=== PATIENT | female | born 1990 | race Caucasian/White ===

== ENCOUNTER 2022-09-09 23:32 | Emergency (ER) | payer OTHER ==
--- OUTSIDE RECORDS SUMMARY | 2022-09-09 23:36 | XMS REPORT | Continuity of Care Document ---
:1990 Author Organization [facility] t Address [address] [place] [address] Care Team Providers Name Role Phone System, Pcp Not In Primary Care Physician Unavailable DORIS PAUL Attending Clinician Unavailable Doctor Unassigned, [place] Attending Clinician Unavailable JONATAN KEMP Attending Clinician Unavailable FRANCESCO ADAM Attending Clinician Unavailable DORIS STOVALL Attending Clinician Unavailable Doris Stovall MD Attending Clinician Leidy Mckeon Attending Clinician LEIDY BASS Attending Clinician Unavailable DA GREENE Attending Clinician Unavailable THOMAS ATKINS Attending Clinician Unavailable YOHAN RIVERA Attending Clinician Unavailable BEENA MAZARIEGOS Attending Clinician Unavailable CHERELLE WEINSTEIN Attending Clinician Unavailable Dav Crook Attending Clinician Unavailable PAULA VELEZ Admitting Clinician Unavailable ELDER BABCOCK Admitting Clinician Unavailable Payers Payer Name Policy Type Policy Number Effective Date Expiration Date S ource Problems Condition Condition Condition Status Onset Resolution Last Treating Co mments Source Name Details Category Date Date Treatment Clinician Date Kidney Kidney Disease Active 2020-11 Univers stone stone 2-16 ity of 00:00: [address] Morbid Morbid Disease Active 2021-1 Univers obesity obesity 2-16 ity of 00:00: [place] 00 [facility] Branch Obstructiv Obstructiv Disease Active 2020-11 U nivers e sleep e sleep 2-16 ity of apnea apnea 00:00: [place] [facility] Cerebrovas Cerebrovas Disease Active 2019-11 U nivers cular cular 1-05 ity of accident accident 00:00: [place] (CVA) (CVA) 00 Medical Branch Transient Transient Disease Active 2019-11 Uni vers ischemic ischemic 1-05 ity of attack attack 00:00: [place] [facility] Hyperlipid Hyperlipid Disease Active 2019- U nivers emia emia 2-21 ity of 00:00: [place] [facility] Benign Benign Disease Active 2017-11 Univers intracrani intracrani 0-23 it y of al al 00:00: [place] hypertensi hypertensi 00 Me dical on on Branch Hypothyroi Hypothyroi Disease Active 2016-11 U nivers dism dism 2-26 ity of 00:00: [place] [facility] Bipolar 1 Bipolar 1 Disease Active 2016-11 Uni vers disorder, disorder, 1-20 ity of depressed depressed 00:00: [facility] [place] [facility] Posttrauma Posttrauma Disease Active U nivers tic stress tic stress 3-17 it y of disorder disorder 00:00: [place] 00 Medical Branch Allergies, Adverse Reactions, Alerts Allergy Allergy Status Severity Reaction(s) Onset Inactive Treating Comm ents Source Name Type Date Date Clinician Penicill Propensi Active 2021-11 ins - ty to 0-31 CLASS adverse 00:00: reaction 00 to drug Penicill DA Active [facility] ins 03-26 [place] 00:00: [facility] [place] prometha DA Active [facility] zine 03-26 [place] 00:00: [facility] [place] PREDNISO DRUG Active Hives Univers NE INGREDI 4-04 ity of 00:00: [place] [facility] PROMETHA DRUG Active Anaphylaxis Uni vers ZINE INGREDI 4-04 ity of 00:00: [place] [facility] Predniso Drug Active Hives Univers ne Allergy 4-04 ity of 00:00: [place] [facility] Prometha Drug Active Anaphylaxis Uni vers zine Allergy 4-04 ity of 00:00: [place] 00 Medical Branch Social History Social Habit Start Date Stop Date Quantity Comments Source History of Cigarette Smoker [facility] of tobacco use [facility] Tobacco use and 2022-06-20 2022-06-20 Smokeless tobacco Un iversity of exposure 00:00:00 00:00:00 non-user [facility] Exposure to 2022-06-09 2022-06-19 Not sure University SARS-CoV-2 00:00:00 16:02:00 [facility] (event) [place] Sex Assigned At [birth year] Universit y of 00:00:00 00:00:00 [facility] Smoking Status Start Date Stop Date Source Ex-smoker 2022-06-20 00:00:00 2022-06-20 00:00:00 [facility] Medications Ordered Filled Start Stop Current Ordering Indication Dosage Frequency Signature Comments Components Source Medication Medication Date Date Medication? Clinician (SIG) Name Name TAKE 2021-11 No CAPSULE 0-14 FOUR TIMES 00:00: DAILY UNTIL 00 GONE TAKE 2021-11 No TABLET BY 0-14 MOUTH EVERY 00:00: DAY 00 TAKE 2021-11 No CAPSULE 0-14 FOUR TIMES 00:00: DAILY UNTIL 00 GONE TAKE 2021-11 No TABLET BY 0-14 MOUTH EVERY 00:00: DAY 00 levothyroxi 2021- No .05ug Take 0.05 Univers ne 50 mcg 8-17 08-17 mcg by ity of tablet 12:00: 00:00 mouth [place] 31 :00 every Medical morning. [place] atorvastati 2021- No 20mg Take 20 mg Univers n 20 mg 8-17 08-17 by mouth. ity of tablet 12:00: 00:00 [place] 31 :00 [facility] QUEtiapine Yes [id number] TAKE ONE Univers 50 mg 8-17 (1) ity of tablet 00:00: TABLET(S) 00 BY MOUTH Medical IN THE Branch MORNING AND 2 TABLETS AT BEDTIME. divalproex Yes [id number] 250mg Take 1 Univers 250 mg EC 8-17 tablet by ity o f tablet 00:00: mouth in [place] [address] the Medical morning Branch and 1 tablet in the evening. levothyroxi 0 Yes [id number] 50ug Take 1 Univers ne 50 mcg 8-17 tablet by ity o f tablet 00:00: mouth [place] 00 every Medical morning. Branch hydrOXYzine Yes [id number] 50mg Take 1 Univers 50 mg 8-17 tablet by ity of tablet 00:00: mouth 3 (three) Medical times [place] daily as needed for Anxiety. atorvastati 0 Yes [id number] 20mg Take 1 Univers n 20 mg 8-17 tablet by ity of tablet 00:00: mouth at [place] 00 bedtime. Medical Branch pantoprazol 0 Yes [id number] 40mg Take 1 Univers e 40 mg EC 8-17 tablet by ity of tablet 00:00: mouth in [place] 00 the Medical morning. Branch FLUoxetine 0 Yes [id number] TAKE 1 U nivers 40 mg 8-17 CAPSULE BY ity of capsule 00:00: MOUTH [place] 00 DAILY IN Medical THE Branch MORNING WITH FOOD gabapentin Yes [id number] 300mg Take 1 Univers 300 mg 8-17 [id number] capsule by ity o f capsule 00:00: mouth at [place] [address] bedtime. Medical Branch QUEtiapine 0 Yes [id number] TAKE ONE Univers 50 mg 8-17 (1) ity of tablet 00:00: TABLET(S) 00 BY MOUTH Medical IN THE Branch MORNING AND 2 TABLETS AT BEDTIME. divalproex Yes [id number] 250mg Take 1 Univers 250 mg EC 8-17 tablet by ity o f tablet 00:00: mouth in [place] 00 the Medical morning Branch and 1 tablet in the evening. levothyroxi 0 Yes [id number] 50ug Take 1 Univers ne 50 mcg 8-17 tablet by ity o f tablet 00:00: mouth [place] 00 every Medical morning. Branch hydrOXYzine 2021-0 Yes [id number] 50mg Take 1 Univers 50 mg 8-17 tablet by ity of tablet 00:00: mouth 3 (three) [facility] daily as needed for Anxiety. atorvastati 0 Yes [id number] 20mg Take 1 Univers n 20 mg 8-17 tablet by ity of tablet 00:00: mouth at [place] [address] bedtime. Medical Branch pantoprazol 2021-0 Yes [id number] 40mg Take 1 Univers e 40 mg EC 8-17 tablet by ity of tablet 00:00: mouth in [place] 00 the Medical morning. Branch FLUoxetine Yes [id number] TAKE 1 U nivers 40 mg 8-17 CAPSULE BY ity of capsule 00:00: MOUTH [place] 00 DAILY IN Medical THE Branch MORNING WITH FOOD gabapentin Yes [id number] 300mg Take 1 Univers 300 mg 8 [id number] capsule by ity o f capsule 00:00: mouth at [place] 00 bedtime. Medical Branch QUEtiapine 2021- No TAKE ONE Un eddie 50 mg 05-21 (1) ity of tablet 00:00: 00:00 TABLET(S) [place] 00 :00 BY MOUTH Medical IN THE Branch MORNING AND 2 TABLETS AT BEDTIME. FLUoxetine 2021- No TAKE 1 Univ ers 40 mg 04-17 CAPSULE BY ity of capsule 00:00: 00:00 MOUTH [place] 00 :00 DAILY IN Medical THE Branch MORNING WITH FOOD hydrOXYzine 2021- No 50mg Take 50 mg Univers 50 mg 04-17 by mouth 3 ity of tablet 00:00: 00:00 (three) [place] 00 :00 times Medical daily as Branch needed. divalproex 2021- No 250mg Take 250 U nivers 250 mg EC 04-17- mg by ity of tablet 00:00: 00:00 mouth in [place] 00 :00 the Medical morning Branch and 250 mg in the evening. pantoprazol 2020-11- No 40mg Take 40 mg Univers e 40 mg EC 12-14 by mouth. ity of tablet 00:00: 00:00 [place] 00 :00 [facility] Branch Vital Signs Vital Name Observation Time Observation Value Comments Source Systolic blood 2022-06-20 16:27:00 132 mm[Hg] Univer sity of pressure [facility] Diastolic blood 2022-06-20 16:27:00 68 mm[Hg] [facility] 2022-06-20 16:27:00 76 /[facility] Body temperature 2022-06-20 16:27:00 36.28 [facility] Respiratory rate 2022-06-20 16:27:00 18 /min [facility] Body weight 2022-06-20 16:27:00 120.203 kg [facility] BMI 2022-06-20 16:27:00 41.50 kg/m2 [facility] BP Systolic 2022-09-06 15:38:00 126 mm[Hg] BP Diastolic 2022-09-06 15:38:00 83 mm[Hg] Weight Measured 2022-09-06 15:38:00 285.00 pounds Height Measured 2022-09-06 15:38:00 67.00 inches Body Temperature 2022-09-06 15:38:00 98.20 degrees Heart Rate 2022-09-06 15:38:00 59.00 /min Respiratory Rate 2022-09-06 15:38:00 18.00 /min Body Temperature 2022-09-03 14:34:00 97.90 degrees Heart Rate 2022-09-03 14:34:00 75.00 /min Respiratory Rate 2022-09-03 14:34:00 18.00 /min BP Systolic 2022-09-03 14:34:00 135 mm[Hg] BP Diastolic 2022-09-03 14:34:00 85 mm[Hg] Weight Measured 2022-09-03 14:34:00 285.00 pounds Height Measured 2022-09-03 14:34:00 67.00 inches Procedures Procedure Date / Time Performed Performing Clinician [facility] e REFERRAL- 2022-09-03 05:01:00 Doctor Unassigned, No [facility] REQUEST/RESPONSE Name [facility] Plan of Care Planned Activity Planned Date Details Comments Source Goal Plan of Care Note [code = 09447-5] Goal Plan of Care Note [code = 44811-2] Goal Plan of Care Note [code = 46236-2] Goal Plan of Care Note [code = 18516-8] Goal Plan of Care Note [code = 97610-4] Goal Plan of Care Note [code = 54717-1] Goal Plan of Care Note [code = 57113-3] Goal Plan of Care Note [code = 79945-3] Goal Plan of Care Note [code = 68868-6] Goal Plan of Care Note [code = 25366-2] Goal Plan of Care Note [code = 10770-1] Goal Plan of Care Note [code = 31375-0] Goal Plan of Care Note [code = 72292-7] Goal Plan of Care Note [code = 20535-0] Goal Plan of Care Note [code = 50580-1] Goal Plan of Care Note [code = 12205-8] Goal Plan of Care Note [code = 96605-7] Goal Plan of Care Note [code = 70359-3] Goal Plan of Care Note [code = 84313-4] Encounters Start End Encounter Admission Attending Care Care Encounter Source Date/Time Date/Time Type Type Clinicians Facility Department ID 2022-04-24 Outpatient ASHLEE PAULRosa M VILLAFANA 7505 CY 16:04:42 DORIS 2022-09-06 2022-09-06 Outpatient SFA SFA [id number] [place] 15:21:36 15:21:36 [id number] F Gustabo 2022-09-06 2022-09-06 Outpatient [id number] [id number] 00:00:00 00:00:00 Visit [id number] 2022-09-03 2022-09-03 Outpatient SFA SFA [id number]- [place] 14:25:05 14:25:05 [id number] F Gustabo 2022-09-03 2022-09-03 Outpatient [id number]- [id number] fccdbf-f 00:00:00 00:00:00 Visit [id number] 2022-09-03 2022-09-03 Orders Doctor REJI 1.2.840.114 [id number] Univers 00:00:00 00:00:00 Only Unassigned, ARISTEO 350.1.13.10 ity of [place] [facility] 4.2.7.2.686 Miguel Angel as [id number] [facility] blayne 009 Branch 2022-07-11 2022-07-12 Emergency E EVE ADAMBL [facility]BL 7507 MHBL 20:54:00 00:37:00 FRANCESCO 2022-06-20 2022-06-20 Outpatient DORIS BLANCA [facility] [id number] Univers 11:15:00 13:07:14 ity of [facility] 2022-06-20 2022-06-20 Office StovallDoris barreto 1.2.840.114 [id number] Univers 11:15:00 13:07:14 Visit Y PEDIATRIC 350.1.13.10 it[place] [id number] [facility] [address] [place] [facility] 2022-06-19 2022-06-19 Urgent [facility] 1.2.840.114 [id number] Univers 16:00:00 16:20:00 Care [facility] 350.1.13.10 it y of [place] 4.2.7.2.686 Miguel Angel as HARPREET?BLEA [phone] [address] MEDICAL OFFICE BUILDING 2022-06-19 2022-06-19 Outpatient R SHELIA [facility] [id number] Univers 16:00:00 16:00:00 RANIA ity of [facility] 2022-06-19 2022-06-19 Orders Doctor REJI 1.2.840.114 [id number] Univers 00:00:00 00:00:00 Only Unassigned, ARISTEO 350.1.13.10 ity of [place] [facility] 4.2.7.2.686 Miguel Angel as [phone] [address] 2022-04-24 2022-04-24 Outpatient E SHAUNA MHC[facility] MED [id number] MHCY 06:45:00 18:13:00 DA ZHANG 2022-04-14 2022-04-14 Emergency E MILLY, MHCY MHCY 7504 MHCY 14:10:00 18:49:00 THOMAS 2022-04-11 2022-04-13 Outpatient E MIGUEL [facility] MED 750 3 MHCY 23:00:00 13:40:00 YOHAN 2022-04-11 2022-04-11 Emergency E WALK, MHCY MHCY 7502 MHCY 04:18:00 06:47:00 BEENA 2022-04-10 2022-04-10 Emergency E JS, MHCY MHCY 7501 MHCY 10:05:00 14:04:00 CHERELLE 2022-03-28 2022-03-28 Emergency E JS, MHCY MHCY 7500 MHCY 14:03:00 20:48:00 PSYCHIATRIC 2022-03-26 2022-03-26 Emergency EM Ambreen, HCATB HCATB [id number] [facility] 21:24:00 22:58:[id number] [facility] [place] 2022-03-26 2022-03-26 Emergency EM Ambreen, HCATB EO3 [id number] [facility] 21:24:00 22:58:[address] [facility] [place] Results Test Description Test Time Test Comments Results Result Comments Source DRUGS OF ABUSE SCREEN URINE 2022-03-26 22:06:00 Test Item Value Reference Range Interpretation Comme nts UR COCAINE (test code = COCAU) Neg NEGATIVE UR METHAMPHETAMINE (test code = METHAMPHU) Neg NEGATIVE UR CANABINOIDS (test code = CANU) Neg NEGATIVE UR AMPHETAMINE (test code = AMPHU) Neg NEGATIVE UR BARBITURATE (test code = BARBQLU) Neg NEGATIVE UR BENZODIAZEPINE (test code = BENZU) Neg NEGATIVE METHADONE (test code = METHDU) Neg NEGATIVE UR OPIATES QUAL (test code = OPIAQLU) Pos NEGATIVE UR TRICYCLICS (test code = TRICYCU) Neg NEGATIVE HCG [id number] 22:02:00 Test Item Value Reference Range Interpretation Comments HCG POC (test NEGATIVE IU/L code = HCGPOC) Re sults of 5.0-25.0 IU/L a re indeterminate a nd do not ruleout pregnan cy. Because HCG celeste ues double approxim ately every48 hours i n a normal pregnanc y, patients with l ow levels ofHCG should be resampled and r etested after 48 hours toconfirm . URINALYSIS DIPSTICK [id number] 21:55:00 Test Item Value Reference Range Interpretation Comments UA COLOR (test code Dark yellow YELLOW = COLU) UA APPEARANCE (test Slightly Cloudy CLEAR code = APPU) UA GLUCOSE DIPSTICK NEGATIVE MG/AL NEGATIVE (test code = DGLUU) UA BILIRUBIN NEGATIVE NEGATIVE DIPSTICK (test code = BILU) UA KETONE DIPSTICK NEGATIVE MG/DL NEGATIVE (test code = KETU) UA SPECIFIC GRAVITY 1.020 1.000-1.030 (test code = SGU) UA BLOOD DIPSTICK NEGATIVE NEGATIVE (test code = RYLEY) UA PH DIPSTICK (test 7.0 4.5-8.5 code = NORIS) UA PROTEIN DIPSTICK NEGATIVE NEGATIVE (test code = PROU) UA UROBILINOGEN 0.2 EU/dL See_Comment [Automated DIPSTICK (test code message] The = URO) system which generated this result transmit ajay reference range : <=1.0. The reference range was not used to interpret this result as normal/abnormal . UA NITRITE DIPSTICK NEGATIVE NEGATIVE (test code = CLAUDIA) UA LEUKOCYTE NEGATIVE NEGATIVE ESTERASE DIPSTICK (test code = LEUU) - XR CHEST 1 [id number] 21:55:00 [facility] : 1990 Sex: FPatient Name: CAROLINE DURAND Unit No: [id number] EXAMS: CPT: [id number] XR CHEST 1 V 79113 PA CHEST, 03/26/2022. Comparison: None. CLINICAL: Chest pain. COMMENT: The heart, mediastinum, hilar regions and pulmonary vasculature appear within normal limits. The lungs are free of active disease. The bony thorax is intact. IMPRESSION: No evidence to suggest active cardiopulmonary disease. at 2155 Reported and signed by: Dav Orellana MD CC: Dav Crook MD Technologist: MARIBEL LOCKHART Trscr Dt/Tm: 03/26/2022 (2154) by:[email or web address] Orig Print D/T: S: 03/26/2022 (2157) BATCH NO: N/A Name: CAROLINE DURAND Emergency Dept Phys: Dav Mehta [id number] [place] : 1990 Age: 31 Sex: F [place] [id number] Loc: DOUG Exam Date: 03/26/2022 Status: PRE ER PH: [phone] FAX: PAGE 1 Signed ReportCBC W/AUTO [id number] 21:50:00 Test Item Value Reference Range Interpretation Comments WHITE BLOOD CELL 10.7 x10 3/u 4.8-10.8 N (test code = WBC) RED BLOOD CELL (test 3.57 x10 6/uL 4.20-5.40 L code = RBC) HEMOGLOBIN (test code 10.5 g/dL 12.0-16.0 L = HGB) HEMATOCRIT (test code 31.9 % 34.0-47.0 L = HCT) MEAN CELL VOLUME 89 fL 80-99 N (test code = MCV) MEAN CELL HGB (test 29.4 pg 27.0-31.0 N code = MCH) MEAN CELL HGB 32.9 g/dL 33.0-37.0 L CONCENTRATION (test code = MCHC) RED CELL DISTRIBUTION 14.0 % 11.5-14.5 N WIDTH (test code = RDW) PLATELET COUNT (test 275 x10 3/uL 130-400 N code = PLT) MEAN PLATELET VOLUME 9.5 fL 9.4-12.4 N (test code = MPV) NEUTROPHIL % (test 58.7 % 37.0-80.0 N code = NT%) LYMPHOCYTE % (test 33.0 % 10.0-50.0 N code = LY%) MIXED % (test code = 8.3 % 0.0-11.0 N The Mix ed Cell MX%) percent and Mix ed Cell absolute numberinclude monocytes, eosinophils and basophils. NEUTROPHIL # (test 6.3 x10 3/uL 2.0-6.9 N code = NT#) LYMPHOCYTE # (test 3.5 x10 3/uL 0.9-4.1 N code = LY#) MIXED # (test code = 0.9 10e3/mm3 0.2-1.1 N MX#) TROPONIN I [id number] 21:49:00 Test Item Value Reference Range Interpretation Comments TROPONIN I RAPID 0.01 ng/mL 0.00-0.08 N ISTAT TROP ONIN I (test code = CRITERIA0.00-0. 08 ng/mL - TROPIRAP) Negative>0.08 n g/mL - Positive The us e of serial sampling and te sting protocol is are commended practice.An johny vated troponin level alone is often not suffi cient fordiagnosis of myocardial infarction. Tro ponin results obtaine d by different assay s may vary.Evaluation of the extent of myoca rdial damage based on increase of troponin would be valid only if similar methodology is used. CHEMISTRY 8 [id number] 21:48:00 Test Item Value Reference Range Interpretation Comments SODIUM POC (test code = NAP) 144 mmol/L 138-146 N POTASSIUM POC (test code = KP) 3.7 mmol/L 3.5-4.9 N CHLORIDE POC (test code = CLP) 114 mmol/L 98-109 H CO2 POC (test code = CO2P) 18 mmol/L 24-29 L IONIZED CALCIUM POC (test code = 1.26 mmol/L 1.10-1.32 N CAIP) GLUCOSE POC (test code = GLUP) 135 MG/DL 74-106 H BUN POC (test code = BUNP) 12 mg/dL 8-26 N CREATININE POC (test code = 0.8 mg/dL 0.6-1.3 N CREATP) GLOMERULAR FILTRATION RATE POC 83 >60 (test code = GFRP)
[2022-09-10 02:13] LABS: Urine Blood Negative (Negative); Urine Glucose Negative (Negative); Urine Protein Negative (Negative); Urine Specific Gravity >=1.030 (1.005-1.030)
[2022-09-10] MEDS ORDERED: METOPROLOL TAR 25 MG TAB ONE (02:28)
[2022-09-10] MEDS ORDERED: NITROGLYCERIN 0.4 MG/TAB SL ONE (02:29)
[2022-09-10] MEDS ORDERED: NA CHLORIDE 0.9% 500 ML ONE (02:29)
[2022-09-10] MEDS ORDERED: ONDANSETRON 4 MG/2 ML VIAL ONE (02:29)
[2022-09-10 02:34] LABS: Hematocrit 37.9 % (36.0-45.0); Lymphocytes % 29.2 % (15.3-44.8); MCV 84.9 fL (80-100); RBC Red Blood Cell Count 4.47 M/uL (3.86-4.86)
[2022-09-10 02:45] LABS: Potassium 3.9 mmol/L (3.5-5.1); Troponin High Sensitivity 4.6 pg/mL (<58.9)
[2022-09-10] MEDS ORDERED: MORPHINE 4 MG/ML SYR ONE ×2 (05:28→07:27)
[2022-09-10] MEDS ORDERED: METHYLPREDNISOLONE 125 MG INJ ONE (07:40)
[2022-09-10] MEDS ORDERED: KETOROLAC 30 MG/ML INJ ONE (07:41)
--- NOTE | 2022-09-10 07:46 | RAD REPORT ---
EXAM DESCRIPTION: CT - Thorax W/ Con - 09/10/2022 7:21 am CLINICAL HISTORY: Chest pain COMPARISON: None TECHNIQUE: Computed axial tomography of the chest was obtained. 100 cc Isovue 300 was administered i ntravenously. All CT scans are performed using dose optimization technique as appropriate and may include automated exposure control or mA/KV adjustment according to patient size. FINDINGS: Small bilateral pleural effusions. No pericardial effusion. Lungs are clear. Mild soft tissue anterior mediastinum. No hilar lymphadenopathy. IMPRESSION: Small bilateral pleural effusions Mild soft tissue anterior mediastinum probably normal thymus. Followup CT chest in 3 months recommend ed for re-evaluation
--- NOTE | 2022-09-10 08:06 | EDPHYS ---
Physician Documentation [facility] Name: Erica Tucker Age: 32 yrs Sex: Female : 1990 Arrival Date: 09/09/2022 Time: 23:33 Bed 18 Private MD: ED Physician Mike Acharya HPI: 09/10 06:23 This 32 yrs old Female presents to ER via Ambulatory with complaints of Chest Pain. kdr 06:23 Good patient complains of substernal left-sided chest pain that radiates to her jaw and kdr started while she was walking upstairs about 330 today she also reports some nausea and shortness of breath. She has not had this before.. Onset: The symptoms/episode began/occurred suddenly, at 15:30. Severity of symptoms: At their worst the symptoms were moderate severe just prior to arrival, in the emergency department the symptoms are unchanged. The patient has not experienced similar symptoms in the past. The patient has not recently seen a physician. 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 - Social history:: Smoking status: Patient denies any tobacco usage or history of. ROS: 09/10 06:23 Constitutional: Negative for fever, chills, and weight loss, Eyes: Negative for injury, kdr pain, redness, and discharge, ENT: Negative for injury, pain, and discharge, Neck: Negative for injury, pain, and swelling, Respiratory: Negative for shortness of breath, cough, wheezing, and pleuritic chest pain, Abdomen/GI: Negative for abdominal pain, nausea, vomiting, diarrhea, and constipation, Back: Negative for injury and pain, : Negative for injury, bleeding, discharge, and swelling, MS/Extremity: Negative for injury and deformity, Skin: Negative for injury, rash, and discoloration, Neuro: Negative for headache, weakness, numbness, tingling, and seizure activity. Psych: Negative for depression, anxiety, suicide ideation, homicidal ideation, and hallucinations, Allergy/Immunology: Negative for hives, rash, and allergies, Endocrine: Negative for neck swelling, polydipsia, polyuria, polyphagia, and marked weight changes, Hematologic/Lymphatic: Negative for swollen nodes, abnormal bleeding, and unusual bruising. Cardiovascular: Positive for chest pain, Negative for edema, orthopnea, palpitations, paroxysmal nocturnal dyspnea, acute changes. Exam: 06:23 Constitutional: This is a well developed, well nourished patient who is awake, alert, kdr and in no acute distress. Head/Face: Normocephalic, atraumatic. Eyes: Pupils equal round and reactive to light, extra-ocular motions intact. Lids and lashes normal. Conjunctiva and sclera are non-icteric and not injected. Cornea within normal limits. Periorbital areas with no swelling, redness, or edema. Neck: Trachea midline, no thyromegaly or masses palpated, and no cervical lymphadenopathy. Supple, full range of motion without nuchal rigidity, or vertebral point tenderness. No Meningismus. Chest/axilla: Normal chest wall appearance and motion. Nontender with no deformity. No lesions are appreciated. Cardiovascular: Regular rate and rhythm with a normal S1 and S2. No gallops, murmurs, or rubs. Normal PMI, no JVD. No pulse deficits. Respiratory: Lungs have equal breath sounds bilaterally, clear to auscultation and percussion. No rales, rhonchi or wheezes noted. No increased work of breathing, no retractions or nasal flaring. Abdomen/GI: Soft, non-tender, with normal bowel sounds. No distension or tympany. No guarding or rebound. No evidence of tenderness throughout. Back: No spinal tenderness. No costovertebral tenderness. Full range of motion. Skin: Warm, dry with normal turgor. Normal color with no rashes, no lesions, and no evidence of cellulitis. MS/ Extremity: Pulses equal, no cyanosis. Neurovascular intact. Full, normal range of motion. Neuro: Awake and alert, GCS 15, oriented to person, place, time, and situation. Cranial nerves II-XII grossly intact. Motor strength 5/5 in all extremities. Sensory grossly intact. Cerebellar exam normal. Normal gait. Psych: Awake, alert, with orientation to person, place and time. Behavior, mood, and affect are within normal limits. 06:23 Abdomen/GI: Inspection: obese Vital Signs: 09/09 23:44 BP 169 / 101; Pulse 80; Resp 20; Temp 97.8; Pulse Ox 98% on R/A; Weight 127.01 kg; hb Height 5 ft. 7 in. (170.18 cm); Pain 8/10; 09/10 02:26 BP 129 / 87; Pulse 77; Resp 14; Pulse Ox 99% on R/A; kd3 02:48 BP 135 / 84; Pulse 77; Resp 16; Pulse Ox 95% on R/A; kd3 03:35 BP 133 / 76; Pulse 75; Resp 14; Pulse Ox 98% on R/A; kd3 06:30 BP 139 / 81; Pulse 69; Resp 16; Pulse Ox 96% ; kd3 07:37 BP 136 / 74; Pulse 76; Resp 14 S; Pulse Ox 96% on R/A; Pain 6/10; kc6 09/09 23:44 Body Mass Index 43.85 (127.01 kg, 170.18 cm) hb MDM: 08:05 Patient medically screened. kdr 09/10 00:16 Order name: Basic Metabolic Panel; Complete Time: 04:40 kdr 09/10 00:16 Order name: CBC with Diff; Complete Time: 04:40 kdr 09/10 00:16 Order name: Troponin HS; Complete Time: 04:40 kdr 09/10 00:16 Order name: XRAY Chest (1 view) kdr 09/10 02:14 Order name: Urine Dipstick-Ancillary; Complete Time: 04:40 EDMS 09/10 04:42 Order name: Troponin High Sensitivity: Repeat 3 hours after the initial draw ; Complete kdr Time: 07:25 09/10 06:23 Order name: CT Chest W/ Con; Complete Time: 07:58 kdr 09/09 23:53 Order name: EKG; Complete Time: 23:53 hb 09/09 23:53 Order name: EKG - Nurse/Tech; Complete Time: 23:53 hb 09/10 00:16 Order name: Cardiac monitoring; Complete Time: 02:08 kdr 09/10 00:16 Order name: IV Saline Lock; Complete Time: 02:09 kdr 09/10 00:16 Order name: Labs collected and sent; Complete Time: 02:09 kdr 09/10 00:16 Order name: O2 Per Protocol; Complete Time: 02:09 kdr 09/10 00:16 Order name: O2 Sat Monitoring; Complete Time: 02: kdr 09/10 04:42 Order name: EKG - Nurse/Tech: Repeat when the troponin is redrawn at 3 hours; Complete kdr Time: 06:29 Administered Medications: 02:33 Drug: Nitroglycerin 0.4 mg Route: Sublingual; kd3 02:33 Drug: Lopressor (metoprolol TARTRATE)) 25 mg Route: PO; kd3 03:36 Follow up: Response: No adverse reaction kd3 02:33 Drug: Zofran (Ondansetron) 4 mg Route: IVP; Site: left antecubital; kd3 03:36 Follow up: Response: No adverse reaction; Nausea is decreased kd3 02:33 Drug: NS 0.9% 500 ml Route: IV; Rate: bolus; Site: left antecubital; kd3 02:40 Drug: Nitroglycerin 0.4 mg Route: Sublingual; kd3 03:08 Drug: Nitroglycerin 0.4 mg Route: Sublingual; kd3 03:36 Follow up: Response: No adverse reaction; Pain is decreased kd3 05:32 Drug: morphine 4 mg Route: IVP; Infused Over: 4 mins; Site: left antecubital; aa9 07:45 Drug: morphine 4 mg Route: IVP; Infused Over: 4 mins; Site: left antecubital; kc6 08:45 Follow up: Response: No adverse reaction; Pain is decreased; RASS: Alert and Calm (0) kc6 07:51 Drug: Ketorolac 15 mg Route: IVP; Site: left antecubital; kc6 08:41 Follow up: Response: No adverse reaction; Pain is decreased; RASS: Alert and Calm (0) kc6 07:51 Drug: SOLU-Medrol (methylPrednisoLONE) 125 mg Route: IVP; Site: left antecubital; kc6 08:51 Follow up: Response: No adverse reaction 6 Disposition Summary: 09/10/22 08:05 Discharge Ordered Location: Home kdr Problem: new kdr Symptoms: have improved kdr Condition: Stable kdr Diagnosis - Chest wall pain, pleural effusions, kdr Followup: kdr - With: Private Physician - When: 2 - 3 days - Reason: If symptoms return, Further diagnostic work-up, Recheck today's complaints, Continuance of care, Re-evaluation by your physician Discharge Instructions: - Discharge Summary Sheet kdr - Pleural Effusion kdr - Chest Wall Pain, [id number] kdr Forms: - Medication Reconciliation Form kdr - Thank You Letter kdr - Work release form kc6 Prescriptions: - Medrol (Yosvany) 4 mg Oral Tablets, Dose Pack - take 1 tablet by ORAL route as directed - follow package instructions; 1 kdr packet; Refills: 0, Product Selection Permitted - Tramadol 50 mg Oral Tablet - take 1 tablet by ORAL route every 8 hours as needed; 12 tablet; Refills: 0, kdr Product Selection Permitted Signatures: Dispatcher [employer] Mike Caceres MD MD kdr Kalie Hill RN RN Bruna Finley RN RN kd3 Wendy Chambers RN RN [id number] Ashley Gaspar RN RN kc6 Corrections: (The following items were deleted from the chart) 07:35 11/06 23:46 Allergies: No Known Allergies; kc6
--- NOTE | 2022-09-10 08:06 | ER ---
Nurse's Notes [facility] Name: Erica Tucker Age: 32 yrs Sex: Female : 1990 Arrival Date: 09/09/2022 Time: 23:33 Bed 18 Private MD: Diagnosis: Chest wall pain, pleural effusions, Presentation: 09/09 23:44 Chief complaint: Substernal chest pain that radiates to left jaw that started while hb walking up the stairs at 1530 today. Also reports nausea and SOB. Coronavirus screen: At this time, the client does not indicate any symptoms associated with coronavirus-19. Ebola Screen: No symptoms or risks identified at this time. Initial Sepsis Screen: Does the patient meet any 2 criteria? No. Patient's initial sepsis screen is negative. Does the patient have a suspected source of infection? No. Patient's initial sepsis screen is negative. Risk Assessment: Do you want to hurt yourself or someone else? Patient reports no desire to harm self or others. Onset of symptoms was September 09, 2022. 23:44 Method Of Arrival: Ambulatory 23:44 Acuity: NANCY 3 hb Triage Assessment: 09/10 02:25 General: Appears uncomfortable, Behavior is calm, cooperative. Pain: Complains of pain kd3 in chest. Neuro: Level of Consciousness is awake, alert, obeys commands, Oriented to person, place, time, situation. Cardiovascular: Patient's skin is warm and dry. Respiratory: Airway is patent Trachea midline Respiratory effort is even, unlabored, Respiratory pattern is regular, symmetrical. 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 - Social history:: Smoking status: Patient denies any tobacco usage or history of. Screenin/07 02:24 Abuse screen: Denies threats or abuse. Denies injuries from another. Nutritional kd3 screening: No deficits noted. Tuberculosis screening: No symptoms or risk factors identified. Fall Risk None identified. Assessment: 02:47 General: Appears in no apparent distress. Behavior is calm, cooperative. Pain: Pain kd3 radiates to right arm Pain began gradually. 02:47 Neuro: Level of Consciousness is awake, alert, obeys commands, Oriented to person, kd3 place, time, situation. Cardiovascular: Patient's skin is warm and dry. Respiratory: Airway is patent Trachea midline Respiratory effort is even, unlabored, Respiratory pattern is regular, symmetrical. 03:35 Reassessment: Patient and/or family updated on plan of care and expected duration. Pain kd3 level reassessed. Patient is alert, oriented x 3, equal unlabored respirations, skin warm/dry/pink. Patient states feeling better. Patient states symptoms have improved. 06:30 Reassessment: No changes from previously documented assessment. Patient and/or family kd3 updated on plan of care and expected duration. Pain level reassessed. Patient is alert, oriented x 3, equal unlabored respirations, skin warm/dry/pink. Neuro: Level of Consciousness is awake, alert, obeys commands, Oriented to person, place, time, situation. Cardiovascular: Patient's skin is warm and dry. Respiratory: Airway is patent Trachea midline Respiratory effort is even, unlabored, Respiratory pattern is regular, symmetrical. 07:36 Reassessment: Patient appears in no apparent distress at this time. No changes from kc6 previously documented assessment. Patient and/or family updated on plan of care and expected duration. Pain level reassessed. Patient is alert, oriented x 3, equal unlabored respirations, skin warm/dry/pink. client stated her pain is a 6/10 to the back of her head and down her neck. reports some chest pressure. Vital Signs: 09/09 23:44 BP 169 / 101; Pulse 80; Resp 20; Temp 97.8; Pulse Ox 98% on R/A; Weight 127.01 kg; hb Height 5 ft. 7 in. (170.18 cm); Pain /; 09/10 02:26 BP 129 / 87; Pulse 77; Resp 14; Pulse Ox 99% on R/A; kd3 02:48 BP 135 / 84; Pulse 77; Resp 16; Pulse Ox 95% on R/A; kd3 03:35 BP 133 / 76; Pulse 75; Resp 14; Pulse Ox 98% on R/A; kd3 06:30 BP 139 / 81; Pulse 69; Resp 16; Pulse Ox 96% ; kd3 07:37 BP 136 / 74; Pulse 76; Resp 14 S; Pulse Ox 96% on R/A; Pain 6/10; kc6 09/09 23:44 Body Mass Index 43.85 (127.01 kg, 170.18 cm) hb ED Course: 09/09 23:33 Patient arrived in ED. ja2 23:46 Triage completed. hb 23:46 Arm band placed on. hb 09/10 00:16 Mike Acharya MD is Attending Physician. kdr 00:55 XRAY Chest (1 view) In Process Unspecified. EDMS 01:43 Bruna Finley, RN is Primary Nurse. kd3 02:09 Basic Metabolic Panel Sent. kd3 02:09 CBC with Diff Sent. kd3 02:09 Troponin HS Sent. kd3 02:24 Patient has correct armband on for positive identification. Client placed on continuous kd3 cardiac and pulse oximetry monitoring. NIBP monitoring applied. 02:24 No provider procedures requiring assistance completed. Inserted saline lock: 20 gauge kd3 in left antecubital area, using aseptic technique. Blood collected. Patient maintains SpO2 saturation greater than 95% on room air. 04:05 Warm blanket given. Pillow given. Assisted to bathroom. kd3 06:29 Troponin High Sensitivity: Repeat 3 hours after the initial draw Sent. kd3 07:23 CT Chest W/ Con In Process Unspecified. EDMS 09:16 Primary Nurse role handed off by Bruna Finley, RN jd3 09:16 Sriram Greene RN is Primary Nurse. jd3 09:33 IV discontinued, intact, bleeding controlled, No redness/swelling at site. Pressure kc6 dressing applied. Administered Medications: 02:33 Drug: Nitroglycerin 0.4 mg Route: Sublingual; kd3 02:33 Drug: Lopressor (metoprolol TARTRATE)) 25 mg Route: PO; kd3 03:36 Follow up: Response: No adverse reaction kd3 02:33 Drug: Zofran (Ondansetron) 4 mg Route: IVP; Site: left antecubital; kd3 03:36 Follow up: Response: No adverse reaction; Nausea is decreased kd3 02:33 Drug: NS 0.9% 500 ml Route: IV; Rate: bolus; Site: left antecubital; kd3 02:40 Drug: Nitroglycerin 0.4 mg Route: Sublingual; kd3 03:08 Drug: Nitroglycerin 0.4 mg Route: Sublingual; kd3 03:36 Follow up: Response: No adverse reaction; Pain is decreased kd3 05:32 Drug: morphine 4 mg Route: IVP; Infused Over: 4 mins; Site: left antecubital; aa9 07:45 Drug: morphine 4 mg Route: IVP; Infused Over: 4 mins; Site: left antecubital; kc6 08:45 Follow up: Response: No adverse reaction; Pain is decreased; RASS: Alert and Calm (0) kc6 07:51 Drug: Ketorolac 15 mg Route: IVP; Site: left antecubital; kc6 08:41 Follow up: Response: No adverse reaction; Pain is decreased; RASS: Alert and Calm (0) kc6 07:51 Drug: SOLU-Medrol (methylPrednisoLONE) 125 mg Route: IVP; Site: left antecubital; kc6 08:51 Follow up: Response: No adverse reaction kc6 Medication: 02:47 VIS not applicable for this client. kd3 Outcome: 08:05 Discharge ordered by . kdr 09:16 Patient left the ED. jd3 09:33 Discharged to home ambulatory. kc6 09:33 Condition: stable 09:33 Discharge instructions given to patient, Instructed on discharge instructions, follow up and referral plans. medication usage, Demonstrated understanding of instructions, follow-up care, medications, Prescriptions given X 2. Signatures: Dispatcher [employer] EDMS Mike Acharya MD MD kdr Baxter, Heather, RN RN Sriram Greene RN RN Inga Henson Kyli, RN RN kd3 Wendy Chambers RN RN aa9 Campbell, Kaitlyn, RN RN kc6 Corrections: (The following items were deleted from the chart) 07:35 11 23:46 Allergies: No Known Allergies; kc6
--- NOTE | 2022-09-10 08:29 | EKG ---
Test Date: 2022-09-09 Test Time: 23:51:30 Senior Compliance Officer: HB MEASUREMENT RESULTS: Intervals: Rate: 90 MN: 158 QRSD: 80 QT: 336 QTc: 411 Walker: P: 69 MN: 158 QRS: 53 T: 21 INTERPRETIVE STATEMENTS: Normal sinus rhythm Nonspecific T wave abnormality Abnormal ECG No previous ECG available for comparison Electronically Signed On 09-10-22 08:29:10 MACHINERY DISMANTLER by Triston Wheeler
[2022-09-10 10:33] VITALS: TEMP 97.8
[2022-09-10 10:41] VITALS: O2SAT 96
[2022-09-10 10:42] VITALS: BP 136/74
--- NOTE | 2022-09-10 12:10 | EKG ---
Test Date: 2022-09-10 Test Time: 06:10:01 Core Stacker: HUONG MEASUREMENT RESULTS: Intervals: Rate: 69 WA: 170 QRSD: 84 QT: 382 QTc: 409 Atkinson: P: 40 WA: 170 QRS: 57 T: 17 INTERPRETIVE STATEMENTS: Normal sinus rhythm Normal ECG Compared to ECG 09/09/2022 23:51:30 T-wave abnormality no longer present Electronically Signed On 09-10-22 12:09:51 KEY PUNCH OPERATOR by Gab Rajan
--- NOTE | 2022-09-10 13:28 | RAD REPORT ---
EXAM DESCRIPTION: RAD - Chest Single View - 09/10/2022 12:53 am CLINICAL HISTORY: The patient is 32 years old and is Female; CHEST PAIN TECHNIQUE: Frontal view of the chest. COMPARISON: July 10, 2022. FINDINGS: Lungs: Prominent interstitial markings which may indicate mild interstitial edema. Pleural space: Unremarkable. No pneumothorax. Heart: Unremarkable. Mediastinum: Unremarkable. Bones/joints: Unremarkable. IMPRESSION: Prominent interstitial markings which may indicate mild interstitial edema. Electronically signed by: Jayson Ghosh MD 09/10/2022 1:03 AM TOE CLOSING MACHINE TENDER Due to temporary technical issues with the PACS/Fluency reporting system, reports are being signed by the in house radiologists without review as a courtesy to insure prompt reporting. The interpreting radiologist is fully responsible for the content of the report.
== END 2022-09-10 09:16 | disposition home or self-care (01) ==
LOC: ER 23:32
DX: R07.89 Other chest pain (principal); J90 Pleural effusion, not elsewhere classified; Z86.73 Personal history of transient ischemic attack (TIA), and cerebral infarction without residual deficits; Z79.01 Long term (current) use of anticoagulants; Z88.0 Allergy status to penicillin; Z88.8 Allergy status to other drugs, medicaments and biological substances
CPT/HCPCS: 93005 ×2; 85025; 80048; 36415; 81003; 84484 ×2; 71260; 71045; 96375; 96374; 99284; Q9967; J7040; J2930; J2405

== ENCOUNTER 2022-09-15 20:09 | Emergency (ER) | payer OTHER ==
--- OUTSIDE RECORDS SUMMARY | 2022-09-15 20:13 | XMS REPORT | Continuity of Care Document ---
:[address] [facility] t Address [address] [place] [address] Care Team Providers Name Role Phone [facility] AWS ARCHITECT, [facility] Primary Care Physician [phone] DORIS PAUL Attending Clinician Unavailable Doctor Unassigned, [place] Attending Clinician Unavailable JONATAN KEMP Attending Clinician Unavailable FRANCESCO ADAM Attending Clinician Unavailable Doris Stovall MD Attending Clinician DORIS STOVALL Attending Clinician Unavailable Leidy Mckeon Attending Clinician LEIDY BASS Attending [...] Univers [place] 2-16 ity of 00:00: [place] 00 Medical Branch Morbid Morbid Disease Active 2020-11 Univers obesity obesity 2-16 ity of 00:00: [place] [facility] Obstructiv Obstructiv Disease Active 2020-11 U nivers e sleep e sleep 2-16 ity of apnea apnea 00:00: [place] [facility] Cerebrovas Cerebrovas Disease Active 2019-11 U nivers cular cular 1-05 ity of accident accident 00:00: [place] (CVA) (CVA) 00 Medical Branch Transient Transient Disease Active 2019-11 Uni vers ischemic ischemic 1-05 ity of attack attack 00:00: [place] [facility] Hyperlipid Hyperlipid Disease Active 2019- U nivers emia emia 2-21 ity of 00:00: [place] [facility] Benign Benign Disease Active 2017-11 Univers intracrani intracrani 0-23 it y of al al 00:00: [place] hypertensi hypertensi 00 Me dical on on Branch Hypothyroi Hypothyroi Disease Active 2016-11 U nivers dism dism 2-26 ity of 00:00: [place] [facility] Bipolar 1 Bipolar 1 Disease Active 2016-11 Uni vers disorder, disorder, 1-20 [place] of depressed depressed [place] [facility] [place] Posttrauma Posttrauma Disease Active U nivers tic stress tic stress 3-17 it y of disorder disorder 00:00: [place] [facility] Allergies, Adverse Reactions, Alerts Allergy Allergy Status Severity Reaction(s) Onset Inactive Treating Comm ents Source Name Type Date Date Clinician Penicill Propensi Active 2021-11 ins - ty to 0-31 CLASS adverse 00:00: reaction 00 to drug Penicill DA Active [facility] ins 03-26 [place] 00:00: [facility] 00 are [place] prometha DA Active [facility] zine 5-23 [place] 00:00: [facility] 00 [place] PREDNISO DRUG Active Hives Univers NE INGREDI 4-04 ity of 00:00: [place] [facility] PROMETHA DRUG Active Anaphylaxis Uni vers ZINE INGREDI 4-04 ity of 00:00: [place] [facility] Predniso Drug Active Hives Univers ne Allergy 4-04 ity of 00:00: [place] [facility] Prometha Drug Active Anaphylaxis Uni vers zine Allergy 4-04 ity of 00:00: [place] [address] [facility] Social History Social Habit Start Date Stop Date Quantity Comments Source History of Cigarette Smoker Universi ty of tobacco use [facility] Tobacco use and 2022-06-20 2022-06-20 Smokeless tobacco Un iversity of exposure 00:00:00 00:00:00 non-user [facility] Exposure to 2022-06-09 2022-06-19 Not sure University SARS-CoV-2 00:00:00 16:02:00 [facility] (event) [place] Sex Ass[birth year] At [birth year] Universit y of 00:00:00 00:00:00 [facility] Smoking Status Start Date Stop Date Source Ex-smoker 2022-06-20 00:00:00 2022-06-20 00:00:00 [facility] Medications Ordered Filled Start Stop Current [...] BY 0-14 MOUTH EVERY 00:00: DAY 00 atorvastati 2021- No 20mg Take 20 mg Univers n 20 mg 06-20 by mouth. ity of tablet 12:00: 00:00 [place] 31 :00 [facility] levothyroxi 2021- No .05ug Take 0.05 Univers ne 50 mcg 06-2017 mcg by ity of tablet 12:00: 00:00 mouth [place] 31 :00 every Medical morning. Branch QUEtiapine Yes [id number] TAKE ONE Univers 50 mg -17 (1) ity of tablet 00:00: TABLET(S) 00 BY MOUTH Medical IN THE Branch MORNING AND 2 TABLETS AT BEDTIME. divalproex Yes [id number] 250mg Take 1 Univers 250 mg EC -17 tablet by ity o f tablet 00:00: mouth in [place] 00 the Medical morning Branch and 1 tablet in the evening. levothyroxi Yes [id number] 50ug Take 1 Univers ne 50 mcg 8-17 tablet by ity o f tablet 00:00: mouth [place] 00 every Medical morning. Branch hydrOXYzine 2021-0 Yes [id number] 50mg Take 1 Univers 50 mg 8-17 tablet by ity of tablet 00:00: mouth 3 00 (three) Medical times [place] daily as needed for Anxiety. atorvastati 2021-0 Yes [id number] 20mg Take 1 Univers n 20 mg 8-17 tablet by ity of tablet 00:00: mouth at [place] 00 bedtime. Medical Branch pantoprazol 2021-0 Yes [id number] 40mg Take 1 Univers e 40 mg EC 8-17 tablet by ity of tablet 00:00: mouth in [place] 00 the Medical morning. Branch FLUoxetine 0 Yes [id number] TAKE 1 U nivers 40 mg 8-17 CAPSULE BY ity of capsule 00:00: MOUTH [place] 00 DAILY IN Medical THE Branch MORNING WITH FOOD gabapentin Yes [id number] 300mg Take 1 Univers 300 mg 8-17 [id number] capsule by ity o f capsule 00:00: mouth at [place] 00 bedtime. Medical Branch QUEtiapine 0 Yes [id number] TAKE ONE Univers 50 mg 8-17 (1) ity of tablet 00:00: TABLET(S) 00 BY MOUTH Medical IN THE Branch MORNING AND 2 TABLETS AT BEDTIME. divalproex 0 Yes [id number] 250mg Take 1 Univers 250 mg EC 8-17 tablet by ity o f tablet 00:00: mouth in [place] 00 the Medical morning Branch and 1 tablet in the evening. levothyroxi 2021-0 Yes [id number] 50ug Take 1 Univers ne 50 mcg 8-17 tablet by ity o f tablet 00:00: mouth [place] 00 every Medical morning. Branch hydrOXYzine 2021-0 Yes [id number] 50mg Take 1 Univers 50 mg 8-17 tablet by ity of tablet 00:00: mouth 3 (three) Medical times [place] daily as needed for Anxiety. atorvastati 2021-0 Yes [id number] 20mg Take 1 Univers n 20 mg 8-17 tablet by ity of tablet 00:00: mouth at [place] 00 bedtime. Medical Branch pantoprazol 2021-0 Yes [id number] 40mg Take 1 Univers e 40 mg EC 8-17 tablet by ity of tablet 00:00: mouth in [place] 00 the Medical morning. Branch FLUoxetine Yes [id number] TAKE 1 U nivers 40 mg 8-17 CAPSULE BY ity of capsule 00:00: MOUTH [place] 00 DAILY IN Medical THE Branch MORNING WITH FOOD gabapentin Yes [id number] 300mg Take 1 Univers 300 mg 8-17 [id number] capsule by ity o f capsule 00:00: mouth at [place] 00 bedtime. Medical Branch QUEtiapine 2021- No TAKE ONE Un eddie 50 mg 05-21 (1) ity of tablet 00:00: 00:00 TABLET(S) [place] 00 :00 BY MOUTH Medical IN THE Branch MORNING AND 2 TABLETS AT BEDTIME. FLUoxetine 2021- No TAKE 1 Univ ers 40 mg 6-17 06- CAPSULE BY ity of capsule 00:00: 00:00 MOUTH [place] 00 :00 DAILY IN Medical THE [place] MORNING WITH FOOD hydrOXYzine 2021- No 50mg Take 50 mg Univers 50 mg 04-17 by mouth 3 ity of tablet 00:00: 00:00 (three) [place] 00 :00 times Medical daily as Branch needed. divalproex 2021- No 250mg Take 250 U nivers 250 mg EC 6-14 -17 mg by ity of tablet 00:00: 00:00 mouth in [place] 00 :00 the Medical morning Branch and 250 mg in the evening. pantoprazol 2020-11 No 40mg Take 40 mg Univers e 40 mg EC 2-10 -17 by mouth. ity of tablet 00:00: 00:00 [place] 00 :00 [facility] Branch Vital Signs Vital Name Observation Time Observation Value Comments Source Systolic blood 2022-06-20 16:27:00 132 mm[Hg] Univer sity of pressure [facility] Diastolic blood 2022-06-20 16:27:00 68 mm[Hg] Unive [facility] of RUST Heart rate 2022-06-20 16:27:00 76 /min [facility] Body temperature 2022-06-20 16:27:00 36.28 [place] [facility] Respiratory rate 2022-06-20 16:27:00 18 /min [facility] Body weight 2022-06-20 16:27:00 120.203 kg [facility] BMI 2022-06-20 16:27:00 41.50 kg/m2 [facility] BP Systolic 2022-09-06 15:38:00 126 mm[Hg] [...] Procedure Date / Time Performed Performing Clinician [facility] e REFERRAL- 2022-09-03 05:01:00 Doctor [facility]igned[facility] REQUEST/RESPONSE Name [facility] Plan of Care Planned Activity Planned Date Details Comments Source Goal Plan of Care Note [code = 52285-2] Goal Plan of Care Note [code = 80503-3] Goal Plan of Care Note [code = 80343-6] Goal Plan of Care Note [code = 44716-6] Goal Plan of Care Note [code = 68259-8] Goal Plan of Care Note [code = 67543-7] Goal Plan of Care Note [code = 27302-8] Goal Plan of Care Note [code = 33419-7] Goal Plan of Care Note [code = 70095-8] Goal Plan of Care Note [code = 69540-3] Goal Plan of Care Note [code = 02879-2] Goal Plan of Care Note [code = 84462-0] Goal Plan of Care Note [code = 85466-5] Goal Plan of Care Note [code = 41191-8] Goal Plan of Care Note [code = 91343-0] Goal Plan of Care Note [code = 99972-2] Goal Plan of Care Note [code = 13777-6] Goal Plan of Care Note [code = 73674-6] Goal Plan of Care Note [code = 78357-0] Encounters Start End Encounter Admission Attending Care Care Encounter Source Date/Time Date/Time Type Type Clinicians Facility Department ID 2022-04-24 Outpatient ASHLEE PAULRosa M VILLAFANA [id number] CY 16:04:42 DORIS 2022-09-11 2022-09-11 Outpatient SFA SFA James 16:14:02 16:14:02 [id number] F Gustabo 2022-09-06 2022-09-06 Outpatient SFA [facility] James 15:21:36 15:21:36 [id number] F Gustabo 2022-09-06 2022-09-06 Outpatient [id number] 00:00:00 00:00:00 Visit [id number] 2022-09-03 2022-09-03 Outpatient SFA [facility] James 14:25:05 14:25:05 [id number] F Gustabo 2022-09-03 2022-09-03 Orders Doctor REJI [id number] [id number] Univers 00:00:00 00:00:00 Only Unassigned, ARISTEO 350.1.13.10 ity of [place] [facility] 4.2.7.2.686 Miguel Angel as [phone] [place] [address] Branch 2022-09-03 2022-09-03 Outpatient [id number]- [id number]-f 00:00:00 00:00:00 Visit [id number] 2022-07-11 2022-07-12 Emergency E JUSTIN ADAM [facility]BL [id number] MHBL 20:54:00 00:37:00 SAB 2022-06-20 2022-06-20 Office StovallDoris barreto 1.2.840.114 [id number] Univers 11:15:00 13:07:14 Visit Y PEDIATRIC 350.1.13.10 [place]2.686 [place] [id number] [address] CARE [facility] 2022-06-20 2022-06-20 Outpatient R DORSI STOVALL [facility] [id number] Univers 11:15:00 13:07:14 ity of [facility] 2022-06-19 2022-06-19 [facility] [id number] [id number] Univers 16:00:00 16:20:[address] [facility] 350.1.13.10 it y of [place] 4.2.7.2.686 Miguel Angel as HARPREET?BLEA [id number] [address] MEDICAL OFFICE BUILDING 2022-06-19 2022-06-19 Outpatient R [facility] [id number] Univers 16:00:00 16:00:00 [facility] ity [facility] 2022-06-19 2022-06-19 Orders Doctor REJI 1.2.840.114 [id number] Univers 00:00:00 00:00:00 Only Unassigned, ARISTEO 350.1.13.10 ity of [place] [facility] 4.2.7.2.686 Miguel Angel as [id number] [place] [address] Branch 2022-04-24 2022-04-24 Outpatient E SHAUNA MHCY MED [id number] MHCY 06:45:00 18:13:00 DA ZHANG 2022-04-14 2022-04-14 Emergency E MILLY, MHCY MHCY [id number] MHCY 14:10:00 18:49:00 THOMAS 2022-04-11 2022-04-13 Outpatient E MIGUEL MHCY MED 750 [id number] MHCY 23:00:00 13:40:00 YOHAN 2022-04-11 2022-04-11 Emergency E WALK, MHCY MHCY [id number] MHCY 04:18:00 06:47:00 BEENA 2022-04-10 2022-04-10 Emergency E JS, MHCY MHCY 7501 MHCY 10:05:00 14:04:00 [facility] 2022-03-28 2022-03-28 Emergency E JS, MHCY MHCY 7500 MHCY 14:03:00 20:48:00 [facility] 2022-03-26 2022-03-26 Emergency EM Crook, HCATB HCATB [id number] [facility] 21:24:00 22:58:00 Dav [id number] [facility] are [place] 2022-03-26 2022-03-26 Emergency EM Crook, HCATB EO3 [id number] [facility] 21:24:00 22:58:00 Dav 03 [facility] are [place] Results Test Description Test Time Test Comments [...] (test code = TRICYCU) Neg NEGATIVE HCG [id number] 22:02:00 Test Item Value Reference Range Interpretation [...] after 48 hours toconfirm . URINALYSIS DIPSTICK [id number] 21:55:00 Test Item Value Reference Range Interpretation [...] code = LEUU) - XR CHEST 1 [id number] 21:55:00 [facility] : 1990 Sex: FPatient Name: CAROLINE DURAND Unit No: [id number] EXAMS: CPT: [id number] XR CHEST 1 V 56108 PA CHEST, 03/26/2022. Comparison: None. CLINICAL: Chest [...] 03/26/2022 (2154) by:[email or web address] Orig Print D/T: S: (2157) BATCH NO: N/A Name: CAROLINE DURAND Emergency Dept Phys: Dav Mehta [id number] [facility] : 1990 Age: 31 Sex: [place] [address] Loc: DeniseBELLO Exam Date: 03/26/2022 Status: PRE ER PH: [phone] FAX: PAGE 1 Signed ReportCBC W/AUTO [id number] 21:50:00 Test Item Value Reference Range Interpretation [...] 0.9 10e3/mm3 0.2-1.1 N MX#) TROPONIN I [id number] 21:49:00 Test Item Value Reference Range Interpretation [...] if similar methodology is used. CHEMISTRY 8 [id number] 21:48:00 Test Item Value Reference Range Interpretation [...]
[2022-09-15 20:52] LABS: Urine Blood 1+ (Negative); Urine Glucose Negative (Negative); Urine Protein Negative (Negative); Urine Specific Gravity 1.015 (1.005-1.030); Urine pH 5.5 (5.0-7.0)
[2022-09-15] MEDS ORDERED: KETOROLAC 30 MG/ML INJ ONE (20:59)
[2022-09-15] MEDS ORDERED: ONDANSETRON 4 MG/2 ML VIAL ONE (21:01)
[2022-09-15 21:07] LABS: Urine Specific Gravity/Preg 1.015 (1.005-1.030)
[2022-09-15 21:31] LABS: Absolute Lymphocytes (CBC) 4.7 K/uL (0.7-4.9); Hematocrit 34.6 % (36.0-45.0); Lymphocytes % 33.8 % (15.3-44.8); MCV 86.3 fL (80-100); MPV 7.9 fL (7.6-11.3)
--- NOTE | 2022-09-15 21:33 | RAD REPORT ---
EXAM DESCRIPTION: RAD - Chest Single View - 09/15/2022 9:27 pm CLINICAL HISTORY: CHEST PAIN COMPARISON: <Comparisons> FINDINGS: Lines: None. Lungs: Diffuse prominence of the pulmonary interstitium is similar to 09/10/2022 . Pleural: No significant pleural effusions or pneumothorax. Cardiac: Similar size and configuration Mediastinum: Within normal limits. Bones: No acute fractures. Other: None IMPRESSION: Radiographic findings that would suggest edema though the chest CT findings from 022 were much less impressive despite having an abnormal same-day chest radiograph.
[2022-09-15 21:38] LABS: Protime INR 0.88
[2022-09-15] MEDS ORDERED: MORPHINE 4 MG/ML SYR ONE (21:41)
[2022-09-15 21:46] LABS: ALT/SGPT 26 U/L (12-78); AST/SGOT 9 U/L (15-37); Albumin 3.3 g/dL (3.4-5.0); Alkaline Phosphatase 103 U/L (45-117); BUN Blood Urea Nitrogen 19 mg/dL (7-18); Bicarbonate 28 mmol/L (21-32); Bilirubin Total 0.3 mg/dL (0.2-1.0); Glomerular Filtration Rate 70 ml/min (=/>90); Glucose Level 86 mg/dL (74-106); Magnesium 2.2 mg/dL (1.8-2.4); NT PRO-BNP 55 pg/mL (<125); Potassium 3.4 mmol/L (3.5-5.1); Protein, Total 6.8 g/dL (6.4-8.2); Sodium Level 139 mmol/L (136-145); Troponin High Sensitivity 4.1 pg/mL (<58.9)
[2022-09-15 22:01] LABS: SARS-COV-2 RT PCR NEGATIVE (NEGATIVE)
[2022-09-15 22:49] LABS: Bilirubin Direct < 0.1 mg/dL (0-0.2)
--- NOTE | 2022-09-16 00:18 | EDPHYS ---
Physician Documentation [facility] Name: Erica Tucker Age: 32 yrs Sex: Female : 1990 Arrival Date: 09/15/2022 Time: 20:10 Bed 5 Private MD: ED Physician Dwaine Wren HPI: 09/15 21:00 This 32 yrs old Female presents to ER via Ambulatory with complaints of Chest Pain, cp Breathing Difficulty. 21:00 The patient or guardian reports chest pain that is located primarily in the anterior cp chest wall, right, right upper and lower chest and diaphragm. The pain radiates to Associated signs and symptoms: Pertinent positives: shortness of breath, Pertinent negatives: cough, diaphoresis, dizziness, lower extremity pain, lower extremity swelling, near syncope, syncope. 21:00 Modifying factors: the symptoms are aggravated by deep breath. cp 21:00 The chest pain is described as sharp. Patient was seen in this ED 09-09-2022 for cp similar complaints and dx with pleural effusion. LITIGATION PARALEGAL: 20:34 LMP 09/10/2022 kb3 Historical: - Allergies: 20:34 PENICILLINS; kb3 20:34 Phenergan; kb3 - Home Meds: 20:34 Eliquis Oral [Active]; kb3 - PMHx: 20:34 Cerebrovascular accident; TIA; Atrial fibrillation; Pseudotumor cerebri; kb3 Hypothyroidism; Depressive disorder; Hypercholesterolemia; - PSHx: 20:34 [place] teeth extraction; Myringotomy and insertion of tympanic ventilation tube; kb3 - Immunization history:: Adult Immunizations up to date, Client reports receiving the 2nd dose of the Covid vaccine, Last tetanus immunization: up to date. - Social history:: Smoking status: Patient denies any tobacco usage or history of. ROS: 21:05 Constitutional: Negative for body aches, chills, fever, poor PO intake. cp 21:05 Eyes: Negative for injury, pain, redness, and discharge. cp 21:05 ENT: Negative for drainage from ear(s), ear pain, sore throat, difficulty swallowing, difficulty handling secretions. 21:05 Cardiovascular: Positive for chest pain, Negative for edema, palpitations. 21:05 Respiratory: Positive for shortness of breath, at rest. Negative for cough, wheezing. 21:05 Abdomen/GI: Negative for abdominal pain, vomiting, diarrhea, constipation. 21:05 Back: Negative for injury or acute deformity, decreased range of motion. 21:05 Skin: Negative for cellulitis, rash. 21:05 Neuro: Negative for altered mental status, dizziness, headache, syncope, weakness. 21:05 All other systems are negative. Exam: 20:45 ECG was reviewed by the Attending Physician. cp 21:10 Constitutional: The patient appears in no acute distress, alert, awake, cp non-diaphoretic, non-toxic, well developed, well nourished, obese. 21:10 Head/Face: Normocephalic, atraumatic. cp 21:10 Eyes: Periorbital structures: appear normal, Conjunctiva: normal, no exudate, no injection, Sclera: no appreciated abnormality, Lids and lashes: appear normal, bilaterally. 21:10 ENT: External ear(s): are unremarkable, Nose: is normal, Mouth: Lips: moist, Oral mucosa: pink and intact, moist, Posterior pharynx: Airway: no evidence of obstruction, patent, swelling, is not appreciated, erythema, is not appreciated. 21:10 Neck: ROM/movement: is normal, is supple, without pain, no range of motions limitations, no nuchal rigidity. 21:10 Chest/axilla: Inspection: normal, pain to right side upper and lower chest wall. 21:10 Cardiovascular: Rate: normal, Rhythm: regular, Edema: is not appreciated, JVD: is not appreciated. 21:10 Respiratory: the patient does not display signs of respiratory distress, Respirations: normal, no use of accessory muscles, no retractions, labored breathing, is not present, Breath sounds: are clear throughout, no decreased breath sounds, no stridor, no wheezing. 21:10 Abdomen/GI: Inspection: abdomen appears normal, Palpation: abdomen is soft and non-tender, in all quadrants. 21:10 Back: pain, that is moderate, of the right subscapular area, ROM is normal, CVA tenderness, is absent. 21:10 Skin: cellulitis, is not appreciated, no rash present. 21:10 Neuro: Orientation: to person, place \\T\\ time. Mentation: is normal, Motor: moves all fours, strength is normal, Sensation: is normal. Vital Signs: 20:32 BP 120 / 76; Pulse 85; Resp 20; Temp 98.3; Pulse Ox 99% ; Weight 127.01 kg; Height 5 kb3 ft. 7 in. (170.18 cm); Pain 8/10; 20:38 BP 124 / 79; Pulse 72; Resp 20; Pulse Ox 97% on R/A; Pain 9/10; kl 22:20 BP 117 / 75; Pulse 82; Resp 19; Pulse Ox 98% ; ll3 23:25 BP 108 / 83; Pulse 74; Resp 14; Pulse Ox 98% on R/A; ll3 09/16 00:37 BP 117 / 87; Pulse 77; Resp 18; Pulse Ox 98% on R/A; kl 09/15 20:32 Body Mass Index 43.85 (127.01 kg, 170.18 cm) kb3 MDM: 09/15 20:50 Patient medically screened. cp 21:00 Differential diagnosis: abnormal EKG, acute myocardial infarction, acute pericarditis, cp anxiety, chest wall pain, cholecystitis, Cholelithiasis costochondritis, pancreatitis, pericarditis, pleurisy, pneumonia, pneumothorax, pulmonary embolus. 23:48 HEART Score: History: Slightly Suspicious (0), ECG: Non specific repolarization cp disturbance / LBTB / PM (1), Age: < or = 45 years (0), Risk Factors: 1 or 2 risk factors (1), [Hypercholesterolemia] [Obesity] Troponin: < or = 1 x Normal Limit (0). 09/16 00:17 Data reviewed: vital signs, nurses notes, lab test result(s), EKG, radiologic studies, cp plain films. 00:17 Test interpretation: by ED physician or midlevel provider: ECG, plain radiologic cp studies. 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 Response to treatment: the patient's symptoms have markedly improved after treatment, VSS. Pain improved. No signs of respiratory distress. Will discharge to home for continued monitoring. 09/15 20:52 Order name: Urine Dipstick-Ancillary; Complete Time: 21:31 EDMS 09/16 00:06 Interpretation: Normal except: UBLD 1+; UESTR Trace. 09/15 20:53 Order name: Basic Metabolic Panel; Complete Time: 23:08 09/15 23:08 Interpretation: Normal except: K 3.4; BUN 19; GFR 70. 09/15 20:53 Order name: CBC with Diff; Complete Time: 22:23 09/15 22:24 Interpretation: Normal except: WBC 13.80; HGB 11.3; HCT 34.6; RDW 17.6; NEUT A 8.1. 09/15 20:53 Order name: D-Dimer; Complete Time: 22:23 09/15 23:09 Interpretation: D-DIMER < 215; Reviewed. 09/15 20:53 Order name: LFT's; Complete Time: 23:08 09/15 23:08 Interpretation: Normal except: AST 9; ALB 3.3; A/G 0.9. 09/15 20:53 Order name: Magnesium; Complete Time: 23:08 09/15 20:53 Order name: NT PRO-BNP; Complete Time: 23:08 09/15 23:08 Interpretation: NT PRO-BNP 55; Reviewed. 09/15 20:53 Order name: PT-INR; Complete Time: 22:23 09/15 20:53 Order name: Troponin HS; Complete Time: 23:08 09/15 23:08 Interpretation: Troponin HS 4.1; Reviewed. 09/15 20:53 Order name: XRAY Chest (1 view); Complete Time: 22:23 09/16 00:07 Interpretation: Report review. 09/15 20:53 Order name: COVID-19/FLU A+B (Document "Date of Onset" if Symptomatic); Complete Time: 22:09/15 20:56 Order name: Urine --Ancillary (enter results); Complete Time: 21:31 2 09/15 20:53 Order name: EKG; Complete Time: 20:54 09/15 20:53 Order name: Cardiac monitoring; Complete Time: 21:21 09/15 20:53 Order name: EKG - Nurse/Tech; Complete Time: 21:21 09/15 20:53 Order name: IV Saline Lock; Complete Time: 21:21 09/15 20:53 Order name: Labs collected and sent; Complete Time: 21: cp 09/15 20:53 Order name: O2 Per Protocol; Complete Time: : cp 09/15 20:53 Order name: O2 Sat Monitoring; Complete Time: 21: cp 09/15 20:53 Order name: Urine Dipstick-Ancillary (obtain specimen); Complete Time: : cp 09/15 20:53 Order name: Urine Test (obtain specimen); Complete Time: :28 cp EC/12 20:45 Rate is 83 beats/min. Rhythm is regular. HI interval is normal. QRS interval is normal. cp QT interval is normal. T waves are Inverted in lead aVR. Interpreted by me. Reviewed by me. Administered Medications: 21:00 Drug: Zofran (Ondansetron) 4 mg Route: IVP; Site: right forearm; kl 21:44 Follow up: Response: No adverse reaction ll3 21:05 Drug: Ketorolac 30 mg Route: IVP; Site: right forearm; kl 21:45 Follow up: Response: No adverse reaction; No change in condition ll3 21:44 Drug: morphine 4 mg Route: IVP; Infused Over: 4 mins; Site: right forearm; ll3 09/16 00:24 Drug: Potassium Effervescent Tablet 25 mEq Route: PO; kl 00:32 Follow up: Response: No adverse reaction kl 00:24 Drug: morphine 4 mg Route: IVP; Infused Over: 4 mins; Site: right forearm; kl 00:32 Follow up: Response: No adverse reaction kl Disposition: 04:37 Co-signature as Attending Physician, Dawine PRICE was immediately available on-site ms3 in the Emergency Department for consultation in the care of the patient. Disposition Summary: 09/16/22 00:17 Discharge Ordered Location: Home cp Problem: an ongoing problem cp Symptoms: have improved cp Condition: Stable cp Diagnosis - Chest pain, unspecified cp Followup: cp - With: Gab Rajan MD - When: 2 - 3 days - Reason: Recheck today's complaints Discharge Instructions: - Discharge Summary Sheet cp - Nonspecific Chest Pain, Adult cp - Aspirin and Your Heart cp - Form - Excuse from Work, School, or Physical Activity cp Forms: - Medication Reconciliation Form cp - Thank You Letter cp - Antibiotic Education cp - Prescription Opioid Use cp Prescriptions: - Diclofenac Sodium 75 mg Oral Tablet Sustained Release - take 1 tablet by ORAL route 2 times per day; 30 tablet; Refills: 0, Product cp Selection Permitted Signatures: Dispatcher [employer] Elida Solomon, RN RN Ajay West PA PA cp Dwaine Wren DO DO ms3 Amee Villa RN RN ll3 Kristine Polo RN RN kb3 Corrections: (The following items were deleted from the chart) 21:59 09/15 21:00 The patient or guardian reports chest pain that is located primarily in the cp anterior chest wall, bilateral lower chest and diaphragm, cp 09/16 22:00 09/15 21:10 Chest/axilla: Inspection: normal, pain to bilateral lower chest. cp cp 09/16 22:00 11 21:10 Back: pain, that is moderate, of the left subscapular area and right cp subscapular area, ROM is normal, CVA tenderness, is absent, cp
--- NOTE | 2022-09-16 00:18 | ER ---
Nurse's Notes [facility] Name: Erica Tucker Age: 32 yrs Sex: Female : 1990 Arrival Date: 09/15/2022 Time: 20:10 Bed 5 Private MD: Diagnosis: Chest pain, unspecified Presentation: 09/15 20:32 Chief complaint: Patient states: Pt reports she was seen in this ED 1 week ago, dx kb3 right pleural effusio, reports pain and SOB continues in right chest and right posterior thorax. Coronavirus screen: Vaccine status: Patient reports receiving the 2nd dose of the covid vaccine. Client denies travel out of the [place] in the last 14 days. Ebola Screen: Patient negative for fever greater than or equal to 101.5 degrees Fahrenheit, and additional compatible Ebola Virus Disease symptoms Patient denies exposure to infectious person. Patient denies travel to an Ebola-affected area in the 21 days before illness onset. Initial Sepsis Screen: Does the patient meet any 2 criteria? No. Patient's initial sepsis screen is negative. Does the patient have a suspected source of infection? No. Patient's initial sepsis screen is negative. Risk Assessment: Do you want to hurt yourself or someone else? Patient reports no desire to harm self or others. Onset of symptoms was September 07, 2022. 20:32 Method Of Arrival: Ambulatory kb3 20:32 Acuity: NANCY 3 kb3 Triage Assessment: 20:34 General: Appears in no apparent distress. Behavior is calm, cooperative. Pain: kb3 Complains of pain in right scapular area, right subscapular area, anterior aspect of right upper chest and right breast Pain does not radiate. Pain currently is 8 out of 10 on a pain scale. Cardiovascular: Chest pain. OUTREACH LIAISON: 20:34 LMP 09/10/2022 kb3 Historical: - Allergies: 20:34 PENICILLINS; kb3 20:34 Phenergan; kb3 - Home Meds: 20:34 Eliquis Oral [Active]; kb3 - PMHx: 20:34 Cerebrovascular accident; TIA; Atrial fibrillation; Pseudotumor cerebri; kb3 Hypothyroidism; Depressive disorder; Hypercholesterolemia; - PSHx: 20:34 Tea teeth extraction; Myringotomy and insertion of tympanic ventilation tube; kb3 - Immunization history:: Adult Immunizations up to date, Client reports receiving the 2nd dose of the Covid vaccine, Last tetanus immunization: up to date. - Social history:: Smoking status: Patient denies any tobacco usage or history of. Screenin:38 Abuse screen: Denies threats or abuse. Nutritional screening: No deficits noted. kl Tuberculosis screening: No symptoms or risk factors identified. Fall Risk None identified. Assessment: 20:37 Pain: Complains of pain in back and anterior aspect of right upper chest and right kl subscapular area and right scapular area Pain currently is 8.5 out of 10 on a pain scale. Pain began 2-3 days ago. 23:33 Reassessment: Pt c/o of chest pressure, states pain is 6/10 ERP notified. ll3 Vital Signs: 20:32 BP 120 / 76; Pulse 85; Resp 20; Temp 98.3; Pulse Ox 99% ; Weight 127.01 kg; Height 5 kb3 ft. 7 in. (170.18 cm); Pain 8/10; 20:38 BP 124 / 79; Pulse 72; Resp 20; Pulse Ox 97% on R/A; Pain 9/10; kl 22:20 BP 117 / 75; Pulse 82; Resp 19; Pulse Ox 98% ; ll3 23:25 BP 108 / 83; Pulse 74; Resp 14; Pulse Ox 98% on R/A; ll3 1113 00:37 BP 117 / 87; Pulse 77; Resp 18; Pulse Ox 98% on R/A; kl 09/15 20:32 Body Mass Index 43.85 (127.01 kg, 170.18 cm) kb3 ED Course: 09/15 20:10 Patient arrived in ED. as 20:34 Triage completed. kb3 20:34 Arm band placed on right wrist. Patient placed in an exam room, on a stretcher. kb3 20:35 Ajay Willingham PA is PHCP. cp 20:35 Dwaine Wren DO is Attending Physician. cp 20:39 EKG completed in triage. Results shown to MD. kl 21:00 Inserted saline lock: 20 gauge in right forearm, using aseptic technique. kl 21:20 COVID-19/FLU A+B (Document "Date of Onset" if Symptomatic) Sent. kl 21:20 XRAY Chest (1 view) Sent. kl 21:21 Basic Metabolic Panel Sent. kl 21:21 CBC with Diff Sent. kl 21:21 D-Dimer Sent. kl 21:21 LFT's Sent. kl 21:21 Magnesium Sent. kl 21:21 NT PRO-BNP Sent. kl 21:21 PT-INR Sent. kl 21:21 Troponin HS Sent. kl 21:29 XRAY Chest (1 view) In Process Unspecified. EDMS 23:34 Patient has correct armband on for positive identification. Placed in gown. Bed in low ll3 position. Call light in reach. Side rails up X 1. Client placed on continuous cardiac and pulse oximetry monitoring. NIBP monitoring applied. 23:34 Patient maintains SpO2 saturation greater than 95% on room air. 3 09/16 00:16 Gab Rajan MD is Referral Physician. cp 00:38 No provider procedures requiring assistance completed. IV discontinued, intact, kl bleeding controlled, No redness/swelling at site. Pressure dressing applied. Administered Medications: 09/15 21:00 Drug: Zofran (Ondansetron) 4 mg Route: IVP; Site: right forearm; kl 21:44 Follow up: Response: No adverse reaction ll3 21:05 Drug: Ketorolac 30 mg Route: IVP; Site: right forearm; kl 21:45 Follow up: Response: No adverse reaction; No change in condition ll3 21:44 Drug: morphine 4 mg Route: IVP; Infused Over: 4 mins; Site: right forearm; ll3 09/16 00:24 Drug: Potassium Effervescent Tablet 25 mEq Route: PO; kl 00:32 Follow up: Response: No adverse reaction kl 00:24 Drug: morphine 4 mg Route: IVP; Infused Over: 4 mins; Site: right forearm; kl 00:32 Follow up: Response: No adverse reaction kl Medication: 00:38 VIS not applicable for this client. kl Outcome: 00:17 Discharge ordered by . cp 00:38 Discharged to home ambulatory. kl 00:38 Condition: improved 00:38 Discharge instructions given to patient, Instructed on discharge instructions, follow up and referral plans. medication usage, Demonstrated understanding of instructions, follow-up care, medications, Prescriptions given X 1. 00:39 Patient left the ED. kl Signatures: Dispatcher [employer] EDIA Elida Armendariz RN RN kl Martinez, Amelia as Page, Corey, PA PA cp Loubet, Lynsea, RN RN ll3 Kristine Polo, RN RN kb3
[2022-09-16] MEDS ORDERED: POTASSIUM 25 MEQ EFFERV TAB ONE (00:20)
[2022-09-16] MEDS ORDERED: MORPHINE 4 MG/ML SYR ONE (00:20)
[2022-09-16 01:43] VITALS: TEMP 98.3
[2022-09-16 01:54] VITALS: O2SAT 98
[2022-09-16 01:57] VITALS: BP 117/87
--- NOTE | 2022-09-17 15:10 | EKG ---
Test Date: 2022-09-15 Test Time: 20:38:44 Travel Sales Consultant: JANY MEASUREMENT RESULTS: Intervals: Rate: 83 [place]: 140 QRSD: 84 QT: 344 QTc: 404 [place]: P: 56 [place]: 140 QRS: 68 T: 8 INTERPRETIVE STATEMENTS: Normal sinus rhythm Nonspecific ST and T wave abnormality Abnormal ECG Compared to ECG 09/10/2022 06:10:01 ST (T wave) deviation now present Electronically Signed On 09-17-22 15:09:10 REFUSE AND RECYCLING WORKER by Gab Rajan
== END 2022-09-16 00:39 | disposition home or self-care (01) ==
LOC: ER 20:09
DX: R07.89 Other chest pain (principal); I48.91 Unspecified atrial fibrillation; Z79.01 Long term (current) use of anticoagulants; Z20.822 Contact with and (suspected) exposure to COVID-19; Z86.73 Personal history of transient ischemic attack (TIA), and cerebral infarction without residual deficits; Z88.0 Allergy status to penicillin; Z88.8 Allergy status to other drugs, medicaments and biological substances
CPT/HCPCS: 93005; 85025; 80048; 36415; 83735; 81025; 85610; 85379; 80076; 81003; 84484; 83880; 0240U; 71045; 96375; 96374; 99284; J2405

== ENCOUNTER 2022-09-23 20:05 | Emergency (ER) | payer OTHER ==
--- OUTSIDE RECORDS SUMMARY | 2022-09-23 20:11 | XMS REPORT | Continuity of Care Document ---
:1990 Author Organization [facility] t Address [address] [place] [address] Dr. Rodgers [address] [place] [address] Care Team Providers Name Role Phone Suyapa HUBBARD, [facility] Primary Care Physician [phone] DORIS PAUL Attending Clinician Unavailable MARYSOL GERARD Attending Clinician Unavailable Tony Paredes MD Attending Clinician Jass Mcnamara MD Attending Clinician Marysol Gerard MD Attending Clinician TONY PAREDES Attending Clinician Unavailable Doctor Unassigned, [facility] Attending Clinician Unavailable JONATAN KEMP Attending Clinician Unavailable FRANCESCO ADAM Attending Clinician Unavailable DORIS STOVALL Attending Clinician Unavailable Doris Stovall MD Attending Clinician Sean Mckeon Attending Clinician SEAN BASS Attending Clinician Unavailable DA GREENE Attending Clinician Unavailable THOMAS ATKINS Attending Clinician Unavailable YOHAN RIVERA Attending Clinician Unavailable BEENA MAZARIEGOS Attending Clinician Unavailable CHERELLE WEINSTEIN Attending Clinician Unavailable Dav Crook Attending Clinician Unavailable JASS MCNAMARA Admitting Clinician Unavailable PAULA VELEZ Admitting Clinician Unavailable ELDER BABCOCK Admitting Clinician Unavailable Payers Payer Name Policy Type Policy Number Effective Date Expiration Date Jey anton [facility] EXCHANGE [id number] 2022 00:00:00 Problems Condition Condition Condition Status Onset Resolution Last Treating Co mments Source Name Details Category Date Date Treatment Clinician Date Shortness Shortness Disease Active 2021-[address] [facility] [address] [facility] breath of breath 1-14 [facility] s 00:00: [facility] 00 [place] Kidney Kidney Disease Active 2020-11 Univers stone stone 2-16 ity of 00:00: [place] 00 Medical Branch Morbid Morbid Disease Active 2020-11 Univers obesity obesity 2-16 ity of 00:00: [place] 00 Medical Branch Obstructiv Obstructiv Disease Active 2020-11 U nivers e sleep e sleep 2-16 ity of apnea apnea 00:00: [place] [facility] Cerebrovas Cerebrovas Disease Active 2019-11 U nivers cular cular 1-05 ity of accident accident 00:00: [place] (CVA) (CVA) 00 Medical Branch Transient Transient Disease Active 2019-11 Uni vers ischemic ischemic 1-05 ity of attack attack 00:00: [place] 00 Medical Branch Hyperlipid Hyperlipid Disease Active 2020-0 U nivers emia emia 2-21 ity of 00:00: [place] 00 Medical Branch Benign Benign Disease Active 2017-11 Univers intracrani intracrani 0-23 it y of al al 00:00: [place] hypertensi hypertensi 00 Me dical on on Branch Hypothyroi Hypothyroi Disease Active 2016-11 U nivers dism dism 2-26 ity of 00:00: [place] 00 Medical Branch Bipolar 1 Bipolar 1 Disease Active 2016-11 Uni vers disorder, disorder, 1-20 [place] of depressed depressed [place] Posttrauma Posttrauma Disease Active U nivers tic stress tic stress 3-17 it y of disorder disorder 00:00: [place] 00 Medical Branch Allergies, Adverse Reactions, Alerts Allergy Allergy Status Severity Reaction(s) Onset Inactive Treating Comm ents Source Name Type Date Date Clinician PENICILL Allergy Active High Hives 2021-[address] [facility] [facility] 11-17 [facility] 00 Center PROMETHA Allergy Active Other 2021-[address] [facility] ZINE-DM 11-17 [facility] 00:[facility]: Medical 00 Center Penicill Propensi Active Hives 2021-[address] [facility] in ty to 11-17 [facility] adverse 00:00: Medical reaction 00 Center s Prometha Propensi Active Other (See 2021-11 "restless [facility] zine-Dm ty to Comments) 14 legs" [facility] adverse 00:00: Medical reaction 00 Center s Penicill Propensi Active 2021-11 ins - ty to 0-31 CLASS adverse 00:00: reaction 00 to drug Penicill DA Active [facility] ins 03-26 [facility] 00:00: Health 00 are [place] prometha DA Active [facility] zine 03-26 [facility] 00:00: Health 00 are [place] PREDNISO DRUG Active Hives Univers NE INGREDI 4-04 ity of 00:00: [place] 00 [facility] Branch PROMETHA DRUG Active Anaphylaxis Uni vers ZINE INGREDI 4-04 ity of 00:00: [place] 00 [facility] Predniso Drug Active Hives Univers ne Allergy 4-04 ity of 00:00: [place] 00 [facility] Branch Prometha Drug Active Anaphylaxis Uni vers zine Allergy 4-04 ity of 00:00: [place] 00 [facility] Social History Social Habit Start Date Stop Date Quantity Comments Source Exposure to 2022-09-08 2022-09-[address] [facility] SARS-CoV-2 00:00:00 01:30:00 [facility] (event) Alcohol intake 2022-09-18 2022-09-18 Ex-drinker [facility] 00:00:00 00:00:00 (finding) Medical Center Tobacco use and 2022-09-17 2022-09-[address] [facility] [address] [facility]ie kes exposure 00:00:00 00:00:00 Medical Center History of 2020-09-[address] [facility] tobacco use 00:00:00 Medical [facility] r Sex Assigned At [address] [facility] 00:00:00 00:00:00 Medical Center Smoking Status Start Date Stop Date Source Former smoker 2022-09-17 00:00:00 2022-09-17 00:00:[address] [facility] Medications Ordered Filled Start Stop Current Ordering Indication Dosage Frequency Signature Comments Components Source Medication Medication Date Date Medication? Clinician (SIG) Name Name QUEtiapine 2021-11 Yes 200mg QD Take [address] (SEROquel) 1-17 mg by [facility]ukes 200 MG 17:05: mouth Medical tablet 04 nightly. [place] FLUoxetine 2021-11 Yes 40mg QD Take [address] (PROzac) 40 -17 by mouth Luke s MG capsule 17:05: daily. Medic al 04 Center levothyroxi 2021-11 Yes 50ug Take [address] [facility] ne 1-17 mcg by Lukes (SYNTHROID, 17:05: mouth Medic al LEVOTHROID) 04 Every Center 50 MCG morning on tablet an empty stomach. pantoprazol 2021-11 Yes 40mg QD Take [address] e -17 by mouth [facility]ukes (PROTONIX) 17:05: daily. Medic al 40 MG 04 [place] tablet atorvastati 2021-11- No 10mg QD Take [address] n (LIPITOR) 11-20 by mouth Sudhakar es 10 MG 17:05: 00:00 daily. Medical tablet 04 :00 [place] lamoTRIgine 2021-11- No 50mg QD Take [address] (LaMICtal) 11-20 by mouth Luke s 25 MG 17:05: 00:00 daily. Medical tablet 04 :00 [place] gabapentin 2021-11- No 300mg [id number] Take [address] (NEURONTIN) -20 09- [id number] mg by [facility]ukes 300 MG 17:05: 00:00 3D mouth 3 Medical capsule 04 :00 (three) Center times daily. apixaban 2021-11- No 5mg QD Take [address] (Eliquis) 5 11-20 by mouth Sudhakar es mg Tab 17:05: 00:00 daily. Medical tablet 04 :00 [place] atorvastati 2021-11- Yes 20mg QD Take [address] n (LIPITOR) 11-19-16 tablet (20 L ukes 20 MG 00:00: 23:59 mg total) Medica l tablet 00 :00 by mouth Center nightly. gabapentin 2021-11- Yes 300mg QD Take [address] (NEURONTIN) 16 11-16 capsule Luke s 300 MG 00:00: 23:59 (300 mg Medical capsule 00 :00 total) by Center mouth nightly. apixaban 2021-11- Yes 5mg Q.5D Take [address] (Eliquis) 5 11-19 12-16 tablet (5 Nathalie kes mg Tab 00:00: 23:59 mg total) Medic al tablet 00 :00 by mouth 2 Center (two) times daily for 30 days. furosemide 2021-11- Yes 20mg QD Take [address] (LASIX) 20 11-19-21 tablet (20 Nathalie kes MG tablet 00:00: 23:59 mg total) Me dical 00 :00 by mouth Center daily for 5 days. TAKE 2021-11 No CAPSULE 0-14 FOUR TIMES [...] of tablet 12:00: 00:00 [place] 31 :00 Medical Branch levothyroxi 2021- No .05ug Take 0.05 Univers ne 50 mcg 8-17 08-17 mcg by ity of tablet 12:00: 00:00 mouth [place] 31 :00 every Medical morning. Branch QUEtiapine Yes [id number] TAKE ONE Univers 50 mg 8-17 (1) ity of tablet 00:00: TABLET(S) [place] 00 BY MOUTH Medical IN THE Branch MORNING AND 2 TABLETS AT BEDTIME. divalproex Yes [id number] 250mg Take 1 Univers 250 mg EC 8-17 tablet by ity o f tablet 00:00: mouth in [place] 00 the Medical morning Branch and 1 tablet in the evening. levothyroxi Yes [id number] 50ug Take 1 Univers ne 50 mcg 8-17 tablet by ity o f tablet 00:00: mouth [place] 00 every Medical morning. Branch hydrOXYzine 0 Yes [id number] 50mg Take 1 Univers 50 mg 8-17 tablet by ity of tablet 00:00: mouth 3 [place] (three) Medical times [place] daily as needed for Anxiety. atorvastati 0 Yes [id number] 20mg Take 1 Univers n 20 mg 8-17 tablet by ity of tablet 00:00: mouth at [place] 00 bedtime. Medical Branch pantoprazol 0 Yes [id number] 40mg Take 1 Univers e 40 mg EC 8-17 tablet by ity of tablet 00:00: mouth in [place] 00 the Medical morning. Branch FLUoxetine 0 Yes [id number] TAKE 1 U nivers 40 mg 8-17 CAPSULE BY ity of capsule 00:00: MOUTH [place] 00 DAILY IN Medical THE Branch MORNING WITH FOOD gabapentin Yes [id number] 300mg Take 1 Univers 300 mg 8-17 [id number] capsule by ity o f capsule 00:00: mouth at [place] 00 bedtime. Medical Branch QUEtiapine Yes [id number] TAKE ONE Univers 50 mg 8-17 (1) ity of tablet 00:00: TABLET(S) [place] 00 BY MOUTH Medical IN THE Branch MORNING AND 2 TABLETS AT BEDTIME. divalproex Yes [id number] 250mg Take 1 Univers 250 mg EC 8-17 tablet by ity o f tablet 00:00: mouth in [place] 00 the Medical morning Branch and 1 tablet in the evening. levothyroxi 0 Yes [id number] 50ug Take 1 Univers ne 50 mcg 8-17 tablet by ity o f tablet 00:00: mouth [place] 00 every Medical morning. Branch hydrOXYzine 0 Yes [id number] 50mg Take 1 Univers 50 mg 8-17 tablet by ity of tablet 00:00: mouth 3 [place] 00 (three) Medical times [place] daily as needed for Anxiety. atorvastati 0 Yes [id number] 20mg Take 1 Univers n 20 mg 8-17 tablet by ity of tablet 00:00: mouth at [place] [address] bedtime. Medical Branch pantoprazol 2021-0 Yes [id number] 40mg Take 1 Univers e 40 mg EC 8-17 tablet by ity of tablet 00:00: mouth in [place] 00 the Medical morning. Branch FLUoxetine Yes [id number] TAKE 1 U nivers 40 mg 8-17 CAPSULE BY ity of capsule 00:00: MOUTH [place] 00 DAILY IN Medical THE Branch MORNING WITH FOOD gabapentin Yes [id number] 300mg Take 1 Univers 300 mg 8-17 [id number] capsule by ity o f capsule 00:00: mouth at [place] 00 bedtime. Medical Branch QUEtiapine 2021- No TAKE ONE Un eddie 50 mg 706-20 (1) ity of tablet 00:00: 00:00 TABLET(S) [place] 00 :00 BY MOUTH Medical IN THE Branch MORNING AND 2 TABLETS AT BEDTIME. FLUoxetine 2021- No TAKE 1 Univ ers 40 mg 6-17 06- CAPSULE BY ity of capsule 00:00: 00:00 MOUTH [place] 00 :00 DAILY IN Medical THE [place] MORNING WITH FOOD hydrOXYzine 2021- No 50mg Take 50 mg Univers 50 mg 6-17 06- by mouth 3 ity of tablet 00:00: 00:00 (three) [place] 00 :00 times Medical daily as Branch needed. divalproex 2021- No 250mg Take 250 U nivers 250 mg EC 6-17 06-17 mg by ity of tablet 00:00: 00:00 mouth in [place] 00 :00 the Medical morning Branch and 250 mg in the evening. pantoprazol 2020-11- No 40mg Take 40 mg Univers e 40 mg EC 2-08 11-17 by mouth. ity of tablet 00:00: 00:00 [place] 00 :00 [facility] Vital Signs Vital Name Observation Time Observation Value Comments Source HEIGHT 2022-09-17 13:50:00 170.2 cm WEIGHT 2022-09-17 13:50:00 127.007 kg HEIGHT 2022-09-17 13:50:00 170.2 cm WEIGHT 2022-09-17 13:50:00 127.007 kg HEIGHT 2022-09-17 13:50:00 170.2 cm WEIGHT 2022-09-17 13:50:00 127.007 kg Systolic blood 2022-06-20 16:27:00 132 mm[Hg] Univer sity of pressure [facility] Diastolic blood 2022-06-20 16:27:00 68 mm[facility]Hg[facility] 2022-06-20 16:27:00 76 /min [facility] Body temperature 2022-06-20 16:27:00 36.28 [facility] [facility] Respiratory rate 2022-06-20 16:27:00 18 /min [facility] Body weight 2022-06-20 16:27:00 120.203 kg [facility] BMI 2022-06-20 16:27:00 41.50 kg/m2 [facility] Heart rate 2022-09-19 09:41:00 89 /min [facility] Systolic blood 2022-09-19 07:56:00 109 mm[Hg] [facility] Diastolic blood 2022-09-19 07:56:00 69 mm[Hg] [facility] Body temperature 2022-09-19 07:56:00 36.78 [place] [facility] Respiratory rate 2022-09-19 07:56:00 18 /min [facility] Oxygen saturation in 2022-09-19 07:56:00 94 /min [facility] Arterial blood by Medical Ce nter Pulse oximetry Body height 2022-09-18 14:12:00 170.2 cm [facility] Body weight 2022-09-17 13:50:00 127.007 kg [facility] BMI 2022-09-17 13:50:00 43.85 kg/m2 [facility] BP Systolic 2022-09-06 15:38:00 126 [...] 67.00 inches Procedures Procedure Date / Time Performing Clinician Source Performed 2D ECHO W/ DOPPLER 2022-09-19 09:42:56 Sathya Rick [facility] (CW/PW/COLOR) [place] BASIC METABOLIC PANEL 2022-09-19 04:07:00 [facility] MAGNESIUM 2022-09-19 04:07:00 [facility] W/[facility]T COUNT & AUTO 2022-09-19 04:07:00 [facility] DIFFERENTIAL [facility] CBC W/PLT COUNT & AUTO 2022-09-19 04:07:[facility] MR BRAIN WITHOUT IV 2022-09-18 18:52:00 [facility] MRA NECK WITHOUT IV 2022-09-18 18:51:00 [facility] MRA HEAD WITHOUT IV 2022-09-18 18:50:00 [facility] SCREEN, URINE 2022-09-18 17:28:00 [facility] I [facility] BASIC METABOLIC PANEL 2022-09-18 05:38:00 Emmanuel, [facility] MAGNESIUM 2022-09-18 05:38:00 Emmanuel, [facility] CBC W/PLT COUNT & AUTO 2022-09-18 05:38:00 [facility] DIFFERENTIAL [facility] HIGH SENSITIVITY 2022-09-18 05:38:00 Emmanuel, [facility] TROPONIN I [facility] TSH/FREE T4 IF INDICATED 2022-09-18 05:38:00 Emmanuel, [facility] CBC W/PLT COUNT & AUTO 2022-09-18 05:38:00 [facility] t [facility] DIFFERENTIAL [facility] ECG 12-LEAD 2022-09-18 04:54:18 Emmanuel [facility] ECG 12-LEAD 2022-09-18 04:54:18 Unknown, [facility] URINALYSIS W2022-09-18 02:30:00 [facility] MICROSCOPIC [facility] ECG 12-LEAD 2022-09-17 22:28:54 Unknown, Hl7 [facility] HIGH SENSITIVITY 2022-09-17 21:19:00 Severe, [facility] TROPONIN I Center CTA CHEST,ABDOMEN & 2022-09-17 21:03:00 Severe, General acute hospital PELVIS - FOR DISSECTION Center HCG, QUANTITATIVE, 2022-09-17 18:05:00 Severe, [facility] URINALYSIS W2022-09-17 16:03:00 Severe, [facility] MICROSCOPIC Center SARS-COV2/RT-PCR ([facility] & 2022-09-17 16:02:00 Severe, [facility] CH I [facility] REF LABS) Center CBC W/PLT COUNT & AUTO 2022-09-17 16:02:00 Severe, General acute hospital DIFFERENTIAL Center COMPREHENSIVE METABOLIC 2022-09-17 16:02:00 Severe, General acute hospital PANEL Center B-TYPE NATRIURETIC 2022-09-17 16:02:00 Severe, [facility] FACTOR (BNP) Center LACTIC ACID, VENOUS 2022-09-17 16:02:00 Severe, [facility] HIGH SENSITIVITY 2022-09-17 16:02:00 Severe, [facility] TROPONIN I Center CBC W/PLT COUNT & AUTO 2022-09-17 16:02:00 Severe, Tony [facility] DIFFERENTIAL Center XR CHEST 2 VIEWS 2022-09-17 14:50:00 Severe, [facility] ECG 12-LEAD 2022-09-17 13:48:54 Severe, Tony [facility] ECG 12-LEAD 2022-09-17 13:48:54 Unknown, Hl7 Doctor [facility] REFERRAL- 2022-09-03 05:01:00 Doctor Unassigned, No [facility] REQUEST/RESPONSE Name Medical Branch Plan of Care Planned Activity Planned Date Details Comments Source Future Scheduled 2023-09-[address] [facility] Test 00:00:00 Counseling [facility] Medical Cente r Screening (12+) [code = Tobacco Cessation Counseling and Screening (12+)] Future Scheduled 2022-07-[address] [facility] Test 00:00:00 (#1) [code = [facility] INFLUENZA VACCINE (#1)] Future Scheduled 2021-12-11 COVID-19 VACCINE (3 - [facility] Test 00:00:00 Booster for Pfizer Medical C enter series) [code = COVID-19 VACCINE (3 - Booster for Pfizer series)] Future Scheduled 2010 Screening for [facility] St Sud[facility]akar es Test 00:00:00 malignant neoplasm of [facility] cervix (procedure) [code = 605087116] Future Scheduled 2009 Lipid panel [facility] Test 00:00:00 (procedure) [code = Medical Center 54170146] Future Scheduled 2008 DTAP/TDAP/TD VACCINES [facility] Test 00:00:00 (4 - Tdap) [code = Medical C enter DTAP/TDAP/TD VACCINES (4 - Tdap)] Future Scheduled 2007 HEPATITIS C SCREENING [facility] Test 00:00:00 [code = HEPATITIS C Medical Center SCREENING] Goal Plan of Care Note [code = 88740-9] Goal Plan of Care Note [code = 19453-7] Goal Plan of Care Note [code = 74908-9] Goal Plan of Care Note [code = 10252-2] Goal Plan of Care Note [code = 23644-5] Goal Plan of Care Note [code = 22491-5] Goal Plan of Care Note [code = 93358-6] Goal Plan of Care Note [code = 15505-6] Goal Plan of Care Note [code = 95101-9] Goal Plan of Care Note [code = 90264-3] Goal Plan of Care Note [code = 45098-0] Goal Plan of Care Note [code = 09246-6] Goal Plan of Care Note [code = 88595-8] Goal Plan of Care Note [code = 20931-5] Goal Plan of Care Note [code = 73993-8] Goal Plan of Care Note [code = 53719-1] Goal Plan of Care Note [code = 77744-8] Goal Plan of Care Note [code = 82529-8] Goal Plan of Care Note [code = 27089-9] Encounters Start End Encounter Admission Attending Care Care Encounter Source Date/Time Date/Time Type Type Clinicians Facility Department ID 2022-04-24 Outpatient ABHI PAUL [id number] CY 16:04:42 DORIS 2022-09-17 2022-09-19 Outpatient ER SHANEKA [facility] Emergency [id number] [facility] 13:57:00 17:05:00 [facility] 2022-09-17 2022-09-19 Emergency Severe, Tony [facility] [id number] 13:57:00 17:05:00 Jass Mcnamara [facility] 2022-09-18 2022-09-18 Travel [facility] [id number] [facility] 00:00:00 [facility] 2022-09-17 2022-09-17 Orders [facility] [id number] 00:00:00 00:00:00 Only [facility] 2022-09-11 2022-09-11 Outpatient SFA SFA [id number] James 16:14:02 16:14:02 [id number] F Gustabo 2022-09-06 2022-09-06 Outpatient SFA SFA [id number] James 15:21:36 15:21:36 F Gustabo 2022-09-06 2022-09-06 Outpatient [id number] 00:00:00 00:00:00 Visit [id number] 2022-09-03 2022-09-03 Outpatient SFA SFA [id number] James 14:25:05 14:25:05 [id number] F Gustabo 2022-09-03 2022-09-03 Outpatient [id number] 00:00:00 00:00:00 Visit [id number] 2022-09-03 2022-09-03 Orders Doctor REJI [id number] Univers 00:00:00 00:00:00 Only Unassigned, ARISTEO [id number] [place] [facility] [id number] Miguel Angel as [id number] [place] [address] Branch 2022-07-11 2022-07-12 Emergency E KIA, BL MHBL [id number] BL 20:54:00 00:37:00 [facility] 2022-06-20 2022-06-20 Outpatient DORIS BLANCA [facility] [id number] Univers 11:15:00 13:07:14 ity of [facility] 2022-06-20 2022-06-20 Office Doris Stovall [id number] Univers 11:15:00 13:07:14 Visit Y PEDIATRIC 350.1.13.10 ity of [place] 4[place]2.7.2.686 [place] [id number] [place] [address] Branch CARE CLINIC 2022-06-19 2022-06-19 Urgent Toñito [facility] [id number] [facility] Univers 16:00:00 16:20:00 Care [facility] [id number] it y of [place] 4.2.7.2.686 Miguel Angel as HARPREET?BLEA [id number] [address] MEDICAL OFFICE BUILDING 2022-06-19 2022-06-19 Outpatient R TOÑITO, [facility] [id number] Univers 16:00:00 16:00:00 SEAN schneider of [facility] 2022-06-19 2022-06-19 Orders Doctor REJI [id number] Univers 00:00:00 00:00:00 Only Unassigned, ARISTEO [id number] [place] [facility] [id number] Miguel Angel as [id number] [address] 2022-04-24 2022-04-24 Outpatient E SHAUNA MHC[facility] MED [id number] MHCY 06:45:00 18:13:00 DA ZHANG 2022-04-14 2022-04-14 Emergency E MILLY, MHCY MHCY [id number] MHCY 14:10:00 18:49:00 THOMAS 2022-04-11 2022-04-13 Outpatient E MIGUEL [facility] MED [id number] MHCY 23:00:00 13:40:00 YOHAN 2022-04-11 2022-04-11 Emergency E WALK, MHCY MHCY [id number] MHCY 04:18:00 06:47:00 BEENA 2022-04-10 2022-04-10 Emergency E JS, MHCY MHCY [id number] MHCY 10:05:00 14:04:00 [facility] 2022-03-28 2022-03-28 Emergency E JS, MHCY MHCY [id number] MHCY 14:03:00 20:48:00 [facility] 2022-03-26 2022-03-26 Emergency EM Crook, HCATB HCATB [id number] [facility] 21:24:00 22:58:00 Dav [id number] [facility] are [place] 2022-03-26 2022-03-26 Emergency EM Crook, HCATB EO3 [id number] [facility] 21:24:00 22:58:00 Dav 03 [facility] are [place] Results Test Description Test Time Test Comments Results Result [facility] e Comments 2D Echo 2022-09-[address] [facility] W/Doppler(CW/PW/C 12:25:54 [facility] ECHO Medical [facility]OL[facility] 2022-09-19 06:21:24 Test Item Value Reference Range Interpretation Comme nts SODIUM (BEAKER) (test 139 meq/L 136-145 code = 381) POTASSIUM (BEAKER) 3.9 meq/L 3.5-5.1 (test code = 379) CHLORIDE (BEAKER) (test 108 meq/L 98-107 H code = 382) CO2 (BEAKER) (test code 21 meq/L 22-29 L = 355) BLOOD UREA NITROGEN 15 mg/dL 7-21 (BEAKER) (test code = 354) CREATININE (BEAKER) 0.83 mg/dL 0.57-1.25 (test code = 358) GLUCOSE RANDOM (BEAKER) 85 mg/dL 70-105 (test code = 652) CALCIUM (BEAKER) (test 9.1 mg/dL 8.4-10.2 code = 697) EGFR (BEAKER) (test 95 mL/min/1.73 sq In terpretation of eGFR values code = 1092) m Stage Descripti on Result G1 Normal or high >=90 G2 Mildly decreased 60-89 G3a Mildly to moderately 45-5 9 G3b Moderately to severely 30- 44 G4 Severly decreased 15-29 G5 Kidney failure <15Repo rted eGFR is based on the CK D-EPI 2020 equation that d oes not use a race coefficien tEstimated GFR is not as accurate as Creatinine Clearance in pr edicting glomerular filt ration rate. Estimated GFR i s not applicable for dialysis ale umanzor Kennel Helper ID - BAN [id number] 06:21:24 Test Item Value Reference Range Interpretation Comments MAGNESIUM (BEAKER) (test code = 2.0 mg/dL 1.6-2.6 627) Kennel Helper ID - BAN [facility] W/PLT COUNT & AUTO [id number] 05:15:21 Test Item Value Reference Range Interpretation Comments WHITE BLOOD CELL COUNT (BEAKER) 10.9 K/ L 3.5-10.5 H (test code = 775) RED BLOOD CELL COUNT (BEAKER) 4.23 M/ L 3.93-5.22 (test code = 761) HEMOGLOBIN (BEAKER) (test code = 12.0 GM/DL 11.2-15.7 410) HEMATOCRIT (BEAKER) (test code = 37.7 % 34.1-44.9 411) MEAN CORPUSCULAR VOLUME (BEAKER) 89 fL 79-95 (test code = 753) MEAN CORPUSCULAR HEMOGLOBIN 28.4 pg 25.6-32.2 (BEAKER) (test code = 751) MEAN CORPUSCULAR HEMOGLOBIN CONC 31.8 GM/DL 32.2-35.5 L (BEAKER) (test code = 752) RED CELL DISTRIBUTION WIDTH 15.9 % 11.7-14.4 H (BEAKER) (test code = 412) PLATELET COUNT (BEAKER) (test 255 K/CU MM 150-450 code = 756) MEAN PLATELET VOLUME (BEAKER) 9.9 fL 9.4-12.3 (test code = 754) NUCLEATED RED BLOOD CELLS 0 /100 WBC 0-0 (BEAKER) (test code = 413) NEUTROPHILS RELATIVE PERCENT 61 % (BEAKER) (test code = 429) LYMPHOCYTES RELATIVE PERCENT 31 % (BEAKER) (test code = 430) MONOCYTES RELATIVE PERCENT 6 % (BEAKER) (test code = 431) EOSINOPHILS RELATIVE PERCENT 1 % (BEAKER) (test code = 432) BASOPHILS RELATIVE PERCENT 1 % (BEAKER) (test code = 437) NEUTROPHILS ABSOLUTE COUNT 6.66 K/ L 1.56-6.13 H (BEAKER) (test code = 670) LYMPHOCYTES ABSOLUTE COUNT 3.31 K/ L 1.18-3.74 (BEAKER) (test code = 414) MONOCYTES ABSOLUTE COUNT (BEAKER) 0.62 K/ L 0.24-0.36 H (test code = 415) EOSINOPHILS ABSOLUTE COUNT 0.15 K/ L 0.04-0.36 (BEAKER) (test code = 416) BASOPHILS ABSOLUTE COUNT (BEAKER) 0.05 K/ L 0.01-0.08 (test code = 417) IMMATURE GRANULOCYTES-RELATIVE 0.60 % 0.00-1.00 PERCENT (BEAKER) (test code = 2801) MR, MRA, BRAIN, WITHOUT [id number] 20:21:00Reason for exam:->Ischemic Stroke Evaluation[facility]Name: [facility] : 1990 Sex: FFINAL REPORT MR, MRA, NECK, WITHOUT IV CONTRAST, MR, BRAIN, WITHOUT CONTRAST, MR,MRA, BRAIN, WITHOUT CONTRAST INDICATION: Stroke, follow upIschemic Stroke Evaluation TECHNIQUE: Multiplanar, multisequence MR images of the brain. 3-D time of flight MRA of the cranial and cervical circulation. 2-D time of flight MRA of the neck. 3D MIP angiographic post-processing was performed. Steno sis evaluation utilized NASCET criteria. COMPARISON: None FINDINGS: MRI BRAIN:Motion degraded exam.Intracranial: No mass, midline shift, acute infarct or acute intracranial hemorrhage. Minimal nonspecific cerebral white matter T2 FLAIR hyperintensities within the frontal lobes, not uncommon for age, and may be sequela vascular headaches or chronic microvascular ischemic changes.Osseous structures: Marrow signal is unremarkable. No suspicious lesion.Paranasal sinuses and mastoid air cells: No acute finding. Orbital contents: No acute findings. MRA BRAIN:Internal carotid arteries: Patent. Middle cerebral arteries: Patent to distal branches.Anterior cerebral arteries: Intact.Basilar system: Patent vertebrobasilar system.Posterior cerebral arteries:Patent beyond the quadrigeminal segments.Additional findings: None. MRA NECK:Common carotid arteries: Unremarkable. Cervical internal carotid arteries and carotid bulbs: No flow limiting stenosis.Vertebral arteries: No significant extracranial stenosis. IMPRESSION: No acute ischemia or parenchymal hemorrhage. No flow limiting stenosis in the major branch arteries of the cervical or cranial circulation. Signed: Luis Carlos Hillman MDReport Verified Date/Time: 09/18/2022 20:21:23 MR, MRA, NECK, WITHOUT IV [id number] 20:21:00Reason for exam:->Ischemic Stroke EvaluationMAR[facility]Name: [facility] : 1990 Sex: FFINAL REPORT MR, MRA, NECK, WITHOUT IV CONTRAST, MR, BRAIN, WITHOUT CONTRAST, MR,MRA, BRAIN, WITHOUT CONTRAST INDICATION: Stroke, follow upIschemic Stroke Evaluation TECHNIQUE: Multiplanar, multisequence MR images of the brain. 3-D time of flight MRA of the cranial and cervical circulation. 2-D time of flight MRA of the neck. 3D MIP angiographic post-processing was performed. Steno sis evaluation utilized NASCET criteria. COMPARISON: None FINDINGS: MRI BRAIN:Motion degraded exam.Intracranial: No mass, midline shift, acute infarct or acute intracranial hemorrhage. Minimal nonspecific cerebral white matter T2 FLAIR hyperintensities within the frontal lobes, not uncommon for age, and may be sequela vascular headaches or chronic microvascular ischemic changes.Osseous structures: Marrow signal is unremarkable. No suspicious lesion.Paranasal sinuses and mastoid air cells: No acute finding. Orbital contents: No acute findings. MRA BRAIN:Internal carotid arteries: Patent. Middle cerebral arteries: Patent to distal branches.Anterior cerebral arteries: Intact.Basilar system: Patent vertebrobasilar system.Posterior cerebral arteries:Patent beyond the quadrigeminal segments.Additional findings: None. MRA NECK:Common carotid arteries: Unremarkable. Cervical internal carotid arteries and carotid bulbs: No flow limiting stenosis.Vertebral arteries: No significant extracranial stenosis. IMPRESSION: No acute ischemia or parenchymal hemorrhage. No flow limiting stenosis in the major branch arteries of the cervical or cranial circulation. Signed: Luis Carlos Hillman MDReport Verified Date/Time: 09/18/2022 20:21:23 MR, BRAIN, WITHOUT [id number] 20:21:00Reason for exam:->Ischemic Stroke EvaluationK[facility]ST[facility] : 1990 Sex: FFINAL REPORT MR, MRA, NECK, WITHOUT IV CONTRAST, MR, BRAIN, WITHOUT CONTRAST, MR,MRA, BRAIN, WITHOUT CONTRAST INDICATION: Stroke, follow upIschemic Stroke Evaluation TECHNIQUE: Multiplanar, multisequence MR images of the brain. 3-D time of flight MRA of the cranial and cervical circulation. 2-D time of flight MRA of the neck. 3D MIP angiographic post-processing was performed. Steno sis evaluation utilized NASCET criteria. COMPARISON: None FINDINGS: MRI BRAIN:Motion degraded exam.Intracranial: No mass, midline shift, acute infarct or acute intracranial hemorrhage. Minimal nonspecific cerebral white matter T2 FLAIR hyperintensities within the frontal lobes, not uncommon for age, and may be sequela vascular headaches or chronic microvascular ischemic changes.Osseous structures: Marrow signal is unremarkable. No suspicious lesion.Paranasal sinuses and mastoid air cells: No acute finding. Orbital contents: No acute findings. MRA BRAIN:Internal carotid arteries: Patent. Middle cerebral arteries: Patent to distal branches.Anterior cerebral arteries: Intact.Basilar system: Patent vertebrobasilar system.Posterior cerebral arteries:Patent beyond the quadrigeminal segments.Additional findings: None. MRA NECK:Common carotid arteries: Unremarkable. Cervical internal carotid arteries and carotid bulbs: No flow limiting stenosis.Vertebral arteries: No significant extracranial stenosis. IMPRESSION: No acute ischemia or parenchymal hemorrhage. No flow limiting stenosis in the major branch arteries of the cervical or cranial circulation. Signed: Luis Carlos Hillman MDReport Verified Date/Time: 09/18/2022 20:21:23 Screen, [id number] 17:50:03 Test Item Value Reference Range Interpretation Comments Preg Test, Ur (test code = 2112-1) Negative Negative Lab Interpretation (test code = Normal 29191-7) [facility] [id number] 17:50:03 Test Item Value Reference Range Interpretation Comments TEST URINE (BEAKER) (test Negative Negative code = 583) Urinalysis w/ [id number] 07:01:05 Test Item Value Reference Range Interpretation Comments Color, UA (test code Yellow = 5778-6) Clarity, UA (test Clear code = 5767-9) Specific [place], UA >1.050 1.001-1.035 H (test code = 5811-5) pH, UA (test code = 9.0 5.0-8.0 H 5803-2) Protein, UA (test 70 mg/dL Negative A code = 40998-6) Glucose, UA (test Negative Negative code = 365) Ketones, UA (test Negative Negative code = 2514-8) Bilirubin, UA (test Negative Negative code = 64806-0) Blood, UA (test code Negative Negative = 06905-5) Nitrite, UA (test Negative Negative code = 5802-4) Leukocytes, UA (test Negative Negative code = 5799-2) Urobilinogen, UA 0.2 0.2-1.0 (test code = 40687-2) RBC, UA (test code = 2 See_Comment [Autom ated 97100-8) message] The system which generated this result transmit ajay reference range : /HPF. The reference range was not used to interpret this result as normal/abnormal . WBC, UA (test code = 1 See_Comment [Autom ated 5821-4) message] The system which generated this result transmit ajay reference range : /HPF. The reference range was not used to interpret this result as normal/abnormal . Squam Epithel, UA 4 See_Comment [Automate d (test code = 72857-9) messag e] The system which generated this result transmit ajay reference range : /HPF. The reference range was not used to interpret this result as normal/abnormal . Specimen Source (test Urine, Clean code = 2795) Catch JAYDE (test code = JAYDE) Kennel Helper ID - tech Lab Interpretation Abnormal (test code = 61440-3) [facility]/ [id number] 07:01:05 Test Item Value Reference Range Interpretation Comments COLOR (BEAKER) (test code Yellow = 470) CLARITY (BEAKER) (test Clear code = 469) SPECIFIC GRAVITY UA > 1.001-1.035 H (BEAKER) (test code = 468) PH UA (BEAKER) (test code 9.0 5.0-8.0 H = 467) PROTEIN UA (BEAKER) (test 70 mg/dL Negative A code = 464) GLUCOSE UA (BEAKER) (test Negative Negative code = 365) KETONES UA (BEAKER) (test Negative Negative code = 371) BILIRUBIN UA (BEAKER) Negative Negative (test code = 462) BLOOD UA (BEAKER) (test Negative Negative code = 461) NITRITE UA (BEAKER) (test Negative Negative code = 465) LEUKOCYTE ESTERASE UA Negative Negative (BEAKER) (test code = 466) UROBILINOGEN UA (BEAKER) 0.2 0.2-1.0 (test code = 463) RBC UA (BEAKER) (test code 2 /HPF = 519) WBC UA (BEAKER) (test code 1 /HPF = 520) SQUAMOUS EPITHELIAL 4 /HPF (BEAKER) (test code = 516) SOURCE(BEAKER) (test code Urine, Clean Catch = 3860) Kennel Helper ID - [id number] 06:54:51 Test Item Value Reference Range Interpretation Comments MAGNESIUM (BEAKER) (test code = 2.1 mg/dL 1.6-2.6 627) Kennel Helper ID - BAN MBASIC METABOLIC [id number] 06:54:50 Test Item Value Reference Range Interpretation Comments SODIUM (BEAKER) 139 meq/L 136-145 (test code = 381) POTASSIUM 4.1 meq/L 3.5-5.1 (BEAKER) (test code = 379) CHLORIDE (BEAKER) 105 meq/L 98-107 (test code = 382) CO2 (BEAKER) 25 meq/L 22-29 (test code = 355) BLOOD UREA 15 mg/dL 7-21 NITROGEN (BEAKER) (test code = 354) CREATININE 0.90 mg/dL 0.57-1.25 (BEAKER) (test code = 358) GLUCOSE RANDOM 87 mg/dL 70-105 (TARUNAKER) (test code = 652) CALCIUM (BEAKER) 9.4 mg/dL 8.4-10.2 (test code = 697) EGFR (BEAKER) 87 Interpretatio n of eGFR (test code = mL/min/1.73 values Stage De scription 1092) sq m Result G1 Chelsey l or high >=90 G2 Mildly decreased 60-89 G3a Mildl y to moderately 45-5 9 G3b Moderately to s everely 30-44 G4 Severl y decreased 15-29 G5 Kidne y failure <15Reported eGF R is based on the CKD-EPI 2020 equation that d oes not use a race coefficientEsti mated GFR is not as accur ate as Creatinine Brooke franklin in predicting glom erular filtration rate . Estimated GFR is not appl icable for dialysis patien ts Kennel Helper ID - BAN MTSH/FREE T4 IF [id number] 06:50:48 Test Item Value Reference Range Interpretation Comments THYROID STIMULATING HORMONE 1.889 uIU/mL 0.350-4.940 (ANA) (test code = 772) Kennel Helper ID - BAN MHIGH SENSITIVITY TROPONIN [id number] 06:31:22 Test Item Value Reference Range Interpretation Comments HIGH SENSITIVITY < pg/ml See_Comment [Automated message] TROPONIN I (test code = The system which [id number]) generated this result transmitted ref erence range: <=17. Th e reference range was not used to interpr et this result as normal/abnormal . Kennel Helper ID - BAN MThe MUSIC TEACHER STAT High Sensitivity Troponin-I results should be used in conjunction with other diagnostic information such as ECG, clinical observations and information, and patient symptoms to aid in the diagnosis of MD.CBC W/PLT COUNT & AUTO [id number] 06:05:36 Test Item Value Reference Range Interpretation Comments WHITE BLOOD CELL COUNT (BEAKER) 13.2 K/ L 3.5-10.5 H (test code = 775) RED BLOOD CELL COUNT (BEAKER) 4.11 M/ L 3.93-5.22 (test code = 761) HEMOGLOBIN (BEAKER) (test code = 12.0 GM/DL 11.2-15.7 410) HEMATOCRIT (BEAKER) (test code = 36.3 % 34.1-44.9 411) MEAN CORPUSCULAR VOLUME (BEAKER) 88 fL 79-95 (test code = 753) MEAN CORPUSCULAR HEMOGLOBIN 29.2 pg 25.6-32.2 (BEAKER) (test code = 751) MEAN CORPUSCULAR HEMOGLOBIN CONC 33.1 GM/DL 32.2-35.5 (BEAKER) (test code = 752) RED CELL DISTRIBUTION WIDTH 16.3 % 11.7-14.4 H (BEAKER) (test code = 412) PLATELET COUNT (BEAKER) (test 298 K/CU MM 150-450 code = 756) MEAN PLATELET VOLUME (BEAKER) 9.8 fL 9.4-12.3 (test code = 754) NUCLEATED RED BLOOD CELLS 0 /100 WBC 0-0 (BEAKER) (test code = 413) NEUTROPHILS RELATIVE PERCENT 55 % (BEAKER) (test code = 429) LYMPHOCYTES RELATIVE PERCENT 35 % (BEAKER) (test code = 430) MONOCYTES RELATIVE PERCENT 7 % (BEAKER) (test code = 431) EOSINOPHILS RELATIVE PERCENT 1 % (BEAKER) (test code = 432) BASOPHILS RELATIVE PERCENT 1 % (BEAKER) (test code = 437) NEUTROPHILS ABSOLUTE COUNT 7.32 K/ L 1.56-6.13 H (BEAKER) (test code = 670) LYMPHOCYTES ABSOLUTE COUNT 4.61 K/ L 1.18-3.74 H (BEAKER) (test code = 414) MONOCYTES ABSOLUTE COUNT (BEAKER) 0.92 K/ L 0.24-0.36 H (test code = 415) EOSINOPHILS ABSOLUTE COUNT 0.19 K/ L 0.04-0.36 (BEAKER) (test code = 416) BASOPHILS ABSOLUTE COUNT (BEAKER) 0.06 K/ L 0.01-0.08 (test code = 417) IMMATURE GRANULOCYTES-RELATIVE 0.70 % 0.00-1.00 PERCENT (BEAKER) (test code = 2801) HIGH SENSITIVITY TROPONIN [id number] 22:00:49 Test Item Value Reference Range Interpretation Comments HIGH SENSITIVITY < pg/ml See_Comment [Automated message] TROPONIN I (test code = The system which [id number]) generated this result transmitted ref erence range: <=17. Th e reference range was not used to interpr et this result as normal/abnormal . Kennel Helper ID - MITCHThe MUSIC TEACHER STAT High Sensitivity Troponin-I results should be used in conjunction with other diagnostic information such as ECG, clinical observations and information, and patientsymptoms to aid in the diagnosis of MD. CTA, CHEST, ABDOMEN - PELVIS, FOR [id number] 21:55:00Unlisted Reason for Exam - Click Yes and Enter Reason Below->YesUnlisted Reason for Exam->Severe chest pain that radiates to the back [facility] : 1990 Sex: FFINAL REPORT TECHNIQUE: CTA of the chest, abdomen, and pelvis WITH intravenous contrast and WITHOUT oral contrast. Coronal sagittal reformations were performed. Additional 3-D volumerendered images of the thoracic and abdominal aorta performed on a separate workstation were submitted. Dose modulation, iterative reconstruction, and/or weight-based adjustment of the mA/kV was utilized to reduce the radiation dose to as low as reasonably achievable. INDICATION: Unlisted Reason for ExamSevere chest pain that radiates to the back. COMPARISON: None. FINDINGS: LINES/TUBES: None. CTA AORTA: Noncontrast images without evidence for intramural hematoma. No thoracic or abdominal aortic aneurysm or dissection. Normal three-vessel configuration of the aortic arch. Great vessel origins are widely patent. Celiac, SMA and DIPIKA are widely patent. Single right and duplicated left renal arteries without hemodynamically significant stenosis. Iliac arteries without aneurysm, dissection or hemodynamically significant stenosis. LUNGS AND AIRWAYS: The lungs and airways are normal without focal abnormality.PLEURA: Small bilateral pleural effusions.HEART AND MEDIASTINUM: The visualized thyroid gland is normal. No significant mediastinal, hilar, or axillary lymphadenopathy. The heart and pericardium are within normal limits. HEPATOBILIARY: No focal hepatic lesions. Gallbladder is unremarkable. No biliary ductal dilatation.SPLEEN: No splenomegaly.PANCREAS: No focal masses or ductal dilatation. ADRENALS: No adrenal nodules.KIDNEYS/URETERS: No hydronephrosis, stones, or masses. 1.0 cm right mid to lower pole renal cortical cyst.PELVIC ORGANS/BLADDER: Unremarkable. PERITONEUM/RETROPERITONEUM: No freeair or fluid.LYMPH NODES: No lymphadenopathy.VESSELS: Unremarkable. GI TRACT: No distention or wall t hickening. Normal appendix. BONES AND SOFT TISSUES: Unremarkable. IMPRESSION: 1. No thoracic or abdominal aortic aneurysm or dissection.2. Small bilateral pleural effusions. No acute pulmonary parenchymal process.3. Normal appendix. No acute inflammatory process within the abdomen or pelvis. Signed: Chepe Aaron MDReport Verified Date/Time: 09/17/2022 21:55:51 HCG, QUANTITATIVE, [id number] 19:18:36 Test Item Value Reference Range Interpretation Comments GONADOTROPIN, CHORIONIC (HCG) QUANT < mIU/mL 0-10 (BEAKER) (test code = 649) Non- Females: <10 mIU/mL Females: Gestation Age Reference Range(mIU/mL) 0.2-1 Week 5-50 1-2 Weeks 50-500 2-3 Weeks 100-5,000 3-4 Weeks 500-10,000 4-5 Weeks 1,000-50,000 5-6 Weeks 10,000-100,000 6-8 Weeks 15,000- 200,000 2-3 Months 10,000-100,000 Kennel Helper ID - MITCHSARS-CoV2/RT-PCR (Asymptomatic ONLY)2022-09-17 17:05:31 Test Item Value Reference Interpretation Comments Range SARS-COV2/RT-PCR Negative Negative The SARS-Co V-2 (test code = target nucleic 04714-4) acids are not detected in thi s specimen. Negat rafael results do not preclude SARS-C oV-2 infection and should not be u sed as the sole bas is for patient management decisions. Nega tive results must be combined with clinical observations, patient history , and epidemiolog ical information. A false negative result may occu r if a specimen is improperly collected, transported or handled. This S ARS CoV-2 test is a rapid, real-alexis e RT-PCR test intended for th e qualitative detection of nucleic acid fr om SARS-CoV-2 in a nasopharyngeal swab specimen colle ajay from individual s suspected of COVID-19 by the ir healthcare provider. JAYDE (test code = This test has been JAYDE) authorized by FDA under an EUA for use by authorized laboratories. This test is only authorized for the duration of the declaration that circumstances exist justifying the authorization of emergency use of in vitro diagnostic tests for detection and/or diagnosis of COVID-19 under Section 564(b)(1) of the Federal Food, Drug and Cosmetic Act, 21 U.S.C. 360bbb-3(b)(1), unless the authorization is terminated or revoked sooner. Fact Sheet for Healthcare Providers: https://www.[employer]/Documents/Xp ert%20Xpress%20SAR S%20CoV-2/Fact%20S heets/302-3802%20S ARS-COV-2%20HEALTH CARE%20PROVIDERS%2 0FACT%20SHEET.pdf Fact Sheet for Healthcare Patients: https://www.[employer]/Documents/Xp ert%20Xpress%20SAR S%20CoV-2/Fact%20S heets/302-3801%20S ARS-COV-2%20PATIEN T%20FACT%20SHEET.p df Lab Interpretation Normal (test code = 34083-8) [facility]2022-09-17 17:05:31 Test Item Value Reference Range Interpretation Comments SARS-COV2/RT-PCR Negative Negative The SARS-Co V-2 target (test code = nucleic acids a re not 6347630) detected in thi s specimen. Negative result s do not preclude SARS-C oV-2 infection and s hould not be used as the ila e basis for patient managem ent decisions. Nega tive results must be combine d with clinical observ ations, patient history , and epidemiological information. A false negativ e result may occur if a spec imen is improperly elle ected, transported or handled. This SARS CoV-2 test is a rapid, real-time RT-PC R test intended for th e qualitative detection of nu cleic acid from SARS-CoV-2 in a nasopharyngeal swab specimen collected from individuals suspected of CO VID-19 by their healthcar e provider. This test has been authorized by FDA under an EUA for use by authorized laboratories. This test is only authorized for the duration of the declaration that circumstances exist justifying the authorization of emergency use of in vitro diagnostic tests for detection and/or diagnosis of COVID-19 under Section 564(b)(1) of the Federal Food, Drug and Cosmetic Act, 21 U.S.C. 360bbb-3(b)(1), unless the authorization is terminated or revoked sooner. Fact Sheet for Healthcare Providers: https://www.[employer]/Documents/Xpert%20Xpress%20SARS%20CoV-2/Fact%20Sheets/302-3802%20HCAN-MWI-5%2 0HEALTHCARE%20PROVIDERS%20FACT%20SHEET.pdf Fact Sheet for Healthcare Patients: https://www.[employer]/Documents/Xpert%20X press%20SARS%20CoV-2/Fact%20Sheets/302-3801%41JRCA-NAB-1%20PATIENT%20FACT%20SHEE T.pdfURINALYSIS W/ [id number] 16:55:30 Test Item Value Reference Range Interpretation Comments COLOR (BEAKER) (test code Colorless = 470) CLARITY (BEAKER) (test Clear code = 469) SPECIFIC GRAVITY UA 1.012 1.001-1.035 (BEAKER) (test code = 468) PH UA (BEAKER) (test code 8.0 5.0-8.0 = 467) PROTEIN UA (BEAKER) (test Negative Negative code = 464) GLUCOSE UA (BEAKER) (test Negative Negative code = 365) KETONES UA (BEAKER) (test Negative Negative code = 371) BILIRUBIN UA (BEAKER) Negative Negative (test code = 462) BLOOD UA (BEAKER) (test Negative Negative code = 461) NITRITE UA (BEAKER) (test Negative Negative code = 465) LEUKOCYTE ESTERASE UA Trace Negative A (BEAKER) (test code = 466) UROBILINOGEN UA (BEAKER) 0.2 0.2-1.0 (test code = 463) RBC UA (BEAKER) (test code 1 /HPF = 519) WBC UA (BEAKER) (test code 3 /HPF = 520) MUCUS (BEAKER) (test code Rare = 1574) SQUAMOUS EPITHELIAL 7 /HPF (BEAKER) (test code = 516) SOURCE(BEAKER) (test code Urine, Clean Catch = 2795) Kennel Helper ID - [auto]Kennel Helper ID - techB-TYPE NATRIURETIC FACTOR (BNP)2022-09-17 16:53:49 Test Item Value Reference Range Interpretation Comments B-TYPE NATRIURETIC PEPTIDE (BEAKER) < pg/mL 0-100 (test code = 700) Kennel Helper ID - MITCHHIGH SENSITIVITY TROPONIN [id number] 16:50:10 Test Item Value Reference Range Interpretation Comments HIGH SENSITIVITY < pg/ml See_Comment [Automated message] TROPONIN I (test code = The system which [id number]) generated this result transmitted ref erence range: <=17. Th e reference range was not used to interpr et this result as normal/abnormal . Kennel Helper ID - MITCHThe MUSIC TEACHER STAT High Sensitivity Troponin-I results should be used in conjunction with other diagnostic information such as ECG, clinical observations and information, and patientsymptoms to aid in the diagnosis of MD. COMPREHENSIVE METABOLIC [id number] 16:46:05 Test Item Value Reference Range Interpretation Comments TOTAL PROTEIN 7.1 gm/dL 6.0-8.3 (BEAKER) (test code = 770) ALBUMIN (BEAKER) 4.0 g/dL 3.5-5.0 (test code = 1145) ALKALINE 112 U/L 40-150 PHOSPHATASE (BEAKER) (test code = 346) BILIRUBIN TOTAL 0.4 mg/dL 0.2-1.2 (BEAKER) (test code = 377) SODIUM (BEAKER) 139 meq/L 136-145 (test code = 381) POTASSIUM (BEAKER) 4.4 meq/L 3.5-5.1 (test code = 379) CHLORIDE (BEAKER) 107 meq/L 98-107 (test code = 382) CO2 (BEAKER) (test 24 meq/L 22-29 code = 355) BLOOD UREA 13 mg/dL 7-21 NITROGEN (BEAKER) (test code = 354) CREATININE 0.80 mg/dL 0.57-1.25 (BEAKER) (test code = 358) GLUCOSE RANDOM 90 mg/dL 70-105 (BEAKER) (test code = 652) CALCIUM (BEAKER) 9.0 mg/dL 8.4-10.2 (test code = 697) AST (SGOT) 19 U/L 5-34 (BEAKER) (test code = 353) ALT (SGPT) 20 U/L 6-55 (BEAKER) (test code = 347) EGFR (BEAKER) 100 Interpretatio n of eGFR (test code = 1092) mL/min/1.[address] age Description sq m Result G1 Chelsey l or high >=90 G2 Mildly decreased 60-89 G3a Mildl y to moderately 45-5 9 G3b Moderately to s everely 30-44 G4 Severl y decreased 15-29 G5 Kidney failure <15Reported eGF R is based on the CKD-EPI 2020 equation that d oes not use a race coefficientEsti mated GFR is not as accur ate as Creatinine Brooke franklin in predicting glom erular filtration rate . Estimated GFR is not appl icable for dialysis patien ts Kennel Helper ID - MITCHLACTIC ACID, [id number] 16:29:26 Test Item Value Reference Range Interpretation Comments LACTATE BLOOD VENOUS (2) (BEAKER) 1.86 mmol/L 0.50-2.20 (test code = 2872) Kennel Helper ID - BAN MCBC W/PLT COUNT & AUTO [id number] 16:21:12 Test Item Value Reference Range Interpretation Comments WHITE BLOOD CELL COUNT (BEAKER) 13.5 K/ L 3.5-10.5 H (test code = 775) RED BLOOD CELL COUNT (BEAKER) 4.25 M/ L 3.93-5.22 (test code = 761) HEMOGLOBIN (BEAKER) (test code = 12.2 GM/DL 11.2-15.7 410) HEMATOCRIT (BEAKER) (test code = 36.6 % 34.1-44.9 411) MEAN CORPUSCULAR VOLUME (BEAKER) 86 fL 79-95 (test code = 753) MEAN CORPUSCULAR HEMOGLOBIN 28.7 pg 25.6-32.2 (BEAKER) (test code = 751) MEAN CORPUSCULAR HEMOGLOBIN CONC 33.3 GM/DL 32.2-35.5 (BEAKER) (test code = 752) RED CELL DISTRIBUTION WIDTH 16.1 % 11.7-14.4 H (BEAKER) (test code = 412) PLATELET COUNT (BEAKER) (test 288 K/CU MM 150-450 code = 756) MEAN PLATELET VOLUME (BEAKER) 9.8 fL 9.4-12.3 (test code = 754) NUCLEATED RED BLOOD CELLS 0 /100 WBC 0-0 (BEAKER) (test code = 413) NEUTROPHILS RELATIVE PERCENT 68 % (BEAKER) (test code = 429) LYMPHOCYTES RELATIVE PERCENT 24 % (BEAKER) (test code = 430) MONOCYTES RELATIVE PERCENT 6 % (BEAKER) (test code = 431) EOSINOPHILS RELATIVE PERCENT 1 % (BEAKER) (test code = 432) BASOPHILS RELATIVE PERCENT 0 % (BEAKER) (test code = 437) NEUTROPHILS ABSOLUTE COUNT 9.13 K/ L 1.56-6.13 H (BEAKER) (test code = 670) LYMPHOCYTES ABSOLUTE COUNT 3.29 K/ L 1.18-3.74 (BEAKER) (test code = 414) MONOCYTES ABSOLUTE COUNT (BEAKER) 0.83 K/ L 0.24-0.36 H (test code = 415) EOSINOPHILS ABSOLUTE COUNT 0.17 K/ L 0.04-0.36 (BEAKER) (test code = 416) BASOPHILS ABSOLUTE COUNT (BEAKER) 0.05 K/ L 0.01-0.08 (test code = 417) IMMATURE GRANULOCYTES-RELATIVE 0.40 % 0.00-1.00 PERCENT (BEAKER) (test code = 2801) RAD, CHEST, 2 [id number] 14:55:00Reason for exam:->SHORTNESS OF BREATHReason for exam:->[facility] PAIN [facility] 1990 Sex: FFINAL REPORT INDICATION: SHORTNESS OF BREATHCHEST PAIN COMPARISON: None TECHNIQUE: AP and lateral view of the chest. FINDINGS: Lungs and pleura: Clear lungs. No effusion.Heart and mediastinum: Normal heart size. Unremarkable mediastinal contours.Osseous structures: No acute abnormality.Other: None. IMPRESSION: No acute intrathoracic abnormality. Signed: Joanna Moser MDReport Verified Date/Time: 09/17/2022 14:55:44 Reading Location: [address] Reading Room DRUGS OF ABUSE SCREEN [id number] 22:06:00 Test Item Value Reference Range Interpretation Comments UR COCAINE (test code = COCAU) Neg NEGATIVE UR METHAMPHETAMINE (test code = Neg NEGATIVE METHAMPHU) UR CANABINOIDS (test code = CANU) Neg NEGATIVE UR AMPHETAMINE (test code = AMPHU) Neg NEGATIVE UR BARBITURATE (test code = BARBQLU) Neg NEGATIVE UR BENZODIAZEPINE (test code = BENZU) Neg NEGATIVE METHADONE (test code = METHDU) Neg NEGATIVE UR OPIATES QUAL (test code = OPIAQLU) Pos NEGATIVE UR TRICYCLICS (test code = TRICYCU) Neg NEGATIVE HCG [id number] 22:02:00 Test Item Value Reference Range Interpretation [...] after 48 hours toconfirm . URINALYSIS DIPSTICK [id number] 21:55:00 Test Item Value Reference Range Interpretation [...] code = LEUU) - XR CHEST 1 [id number] 21:55:00 [facility] : 1990 Sex: FPatient Name: CAROLINE DURAND Unit No: [id number] EXAMS: CPT: [id number] XR CHEST 1 V [id number] PA CHEST, 03/26/2022. Comparison: None. CLINICAL: Chest [...] (2157) BATCH NO: N/A Name: CAROLINE DURAND [facility] Emergency Dept Phys: Dav Mehta [id number] [place] : 1990 Age: 31 Sex: [place] [id number] Loc: DOUG Exam Date: 03/26/2022 Status: PRE ER PH: [phone] FAX: PAGE 1 Signed ReportCBC W/AUTO [id number] 21:50:00 Test Item Value Reference Range Interpretation [...] 0.9 10e3/mm3 0.2-1.1 N MX#) TROPONIN I [id number] 21:49:00 Test Item Value Reference Range Interpretation [...] if similar methodology is used. CHEMISTRY 8 [id number] 21:48:00 Test Item Value Reference Range Interpretation [...]
--- NOTE | 2022-09-23 22:09 | RAD REPORT ---
EXAM DESCRIPTION: RAD - Chest Single View - 09/23/2022 10:02 pm CLINICAL HISTORY: SOB Chest pain. COMPARISON: Chest Single View dated 09/15/2022; Chest Single View dated 09/10/2022; Thorax W/ Con durga ed 09/10/2022 FINDINGS: Portable technique limits examination quality. The lungs are grossly clear. The heart is normal in size. No displaced fractures. IMPRESSION: No acute intrathoracic process suspected.
[2022-09-23 23:29] LABS: Urine Blood Negative (Negative); Urine Glucose Negative (Negative); Urine Protein Negative (Negative)
[2022-09-23 23:45] LABS: Hematocrit 37.5 % (36.0-45.0); Lymphocytes % 21.5 % (15.3-44.8); MCV 86.8 fL (80-100); RBC Red Blood Cell Count 4.33 M/uL (3.86-4.86)
[2022-09-23 23:54] LABS: Albumin 3.6 g/dL (3.4-5.0); Bilirubin Total 0.3 mg/dL (0.2-1.0); Magnesium 1.9 mg/dL (1.8-2.4); Potassium 3.4 mmol/L (3.5-5.1); Protein, Total 7.5 g/dL (6.4-8.2); Troponin High Sensitivity 4.3 pg/mL (<58.9)
[2022-09-24] LABS: Urine RBC <5 /HPF (None Seen)
[2022-09-24 00:13] LABS: SARS-COV-2 RT PCR NEGATIVE (NEGATIVE)
--- NOTE | 2022-09-24 00:40 | EDPHYS ---
Physician Documentation [facility] Name: Erica Tucker Age: 32 yrs Sex: Female : 1990 Arrival Date: 09/23/2022 Time: 20:07 Bed 1 Private MD: ED Physician Anitha Murray HPI: 09/23 21:12 This 32 yrs old Female presents to ER via Ambulatory with complaints of Shortness Of sd2 Breath, Weakness. 21:12 32 yo F presents with CC of SOB and generalized weakness progressively worsening. sd2 States was told she had "fluid around my heart" and started on Lasix. Denies formal diagnosis of CHF. States has been compliant with Lasix but SOB has been worsening. The patient reports multiple vague symptoms including intermittent confusion, difficulty focusing, nausea, intermittent blurred vision and pain to the right side of her body. Patient was recently admitted to [facility] in [place] and was discharged on Saturday. She reports she had a CT scan of her chest performed there as well as an echocardiogram and an MRI of her brain that were all normal. Patient is new to the area and has not yet established with a primary care doctor or manager loss prevention.. Historical: - Allergies: 21:01 PENICILLINS; as6 21:01 Phenergan; as6 - Home Meds: 23:31 Eliquis Oral [Active]; em6 - PMHx: 21:01 Atrial fibrillation; Cerebrovascular accident; depressive disorder; as6 Hypercholesterolemia; Hypothyroidism; pseudotumor cerebri; TIA; - PSHx: 21:01 Myringotomy and insertion of tympanic ventilation tube; [place] teeth extraction; as6 - Immunization history:: Client reports receiving the 2nd dose of the Covid vaccine, pfizer Flu vaccine is not up to date. - Social history:: Smoking status: Patient/guardian denies using tobacco, the patient reports quitting approximately 2 years ago. ROS: 21:12 Respiratory: Positive for dyspnea on exertion, shortness of breath. sd2 23:28 Constitutional: Negative for fever, chills, and weight loss. sd2 23:28 : Negative for dysuria, urinary frequency, hesitancy, urgency and hematuria. MS/Extremity: Negative for injury and deformity, Skin: Negative for injury, rash, and discoloration, Neuro: Negative for headache, numbness and tingling. 23:28 Eyes: Positive for blurry vision, Negative for injury or acute deformity, itching, pain. 23:28 Cardiovascular: Positive for chest pain, edema, Negative for palpitations. 23:28 Respiratory: Positive for Negative for wheezing. Exam: 23:28 Constitutional: This is a well developed, well nourished patient who is awake, alert, sd2 and in no acute distress. Head/Face: Normocephalic, atraumatic. Eyes: EOMI, normal conjunctiva bilaterally Chest/axilla: Normal chest wall appearance and motion. Nontender with no deformity. Cardiovascular: Regular rate and rhythm with a normal S1 and S2. No gallops, murmurs, or rubs. 2+ distal pulses. Respiratory: Lungs have equal breath sounds bilaterally, clear to auscultation and percussion. No rales, rhonchi or wheezes noted. No increased work of breathing, no retractions or nasal flaring. Pt is visibly SOB however after minimal exertion such as walking to the restroom. Abdomen/GI: Soft, non-tender, with normal bowel sounds. No guarding or rebound. No evidence of tenderness throughout. Skin: Warm, dry with normal turgor. Normal color with no rashes, no lesions, and no evidence of cellulitis. MS/ Extremity: Pulses equal, no cyanosis. Neurovascular intact. Full, normal range of motion. Ambulatory without difficulty. Neuro: Awake and alert, GCS 15, oriented to person, place, time, and situation. Cranial nerves II-XII grossly intact. Motor strength 5/5 in all extremities. Sensory grossly intact. Cerebellar exam normal. Normal gait. Psych: Awake, alert, with orientation to person, place and time. Behavior, mood, and affect are within normal limits. 23:28 ECG was reviewed by the Attending Physician. NSR, rate 99, no STEMI criteria, sd2 nonspecific TWIs in leads III, aVF and anterior leads Vital Signs: 20:57 BP 118 / 82; Pulse 103; Resp 20 S; Temp 98.5(O); Pulse Ox 100% on R/A; Weight 127.01 kg as6 (R); Height 5 ft. 7 in. (170.18 cm) (R); Pain 7/10; 22:45 BP 122 / 87; Pulse 95; Resp 18; Pulse Ox 100% on R/A; em6 09/24 00:00 BP 121 / 75; Pulse 96; Resp 18; Pulse Ox 100% on R/A; em6 09/23 20:57 Body Mass Index 43.85 (127.01 kg, 170.18 cm) as6 MDM: 09/23 21:13 Patient medically screened. sd2 23:28 Differential diagnosis: Differential diagnosis includes but is not limited to: ACS, sd2 DVT/PE, pneumothorax, dissection, musculoskeletal, anxiety, anemia, electrolyte abnormality, pneumonia, CHF, COPD among others. Data reviewed: vital signs, nurses notes, EKG. 09/24 00:36 Data reviewed: diagnostic data from outside facility, Recent hospitalization records sd2 from [facility], lab test result(s), radiologic studies. Counseling: I had a detailed discussion with the patient and/or guardian regarding: the historical points, exam findings, and any diagnostic results supporting the discharge/admit diagnosis, lab results, radiology results, the need for outpatient follow up, to return to the emergency department if symptoms worsen or persist or if there are any questions or concerns that arise at home. ED course: Labs and imaging reviewed. Pt advised of all results which are reassuring today. pt with recent extensive workup and cardiology consultations. I did offer admission in the hospital for cardiology consult but patient declined and states she will follow up outpatient and establish care with a PCP and manager loss prevention. She is comfortable with plan for discharge and outpatient follow up and verbalizes understanding of strict return precautions. . 09/23 21:12 Order name: CBC with Diff; Complete Time: 00:13 sd2 09/23 21:12 Order name: CMP; Complete Time: 00:13 sd2 09/23 21:12 Order name: Magnesium; Complete Time: 00:13 sd2 09/23 21:12 Order name: Troponin High Sensitivity; Complete Time: 00:13 sd2 09/23 21:12 Order name: BNP; Complete Time: 00:13 sd2 09/23 21:12 Order name: COVID-19/FLU A+B; Complete Time: 00:13 sd2 09/23 21:12 Order name: EKG - Nurse/Tech; Complete Time: 22:58 sd2 09/23 21:12 Order name: XRAY Chest (1 view); Complete Time: 22:11 sd2 09/23 23:14 Order name: AMMONIA; Complete Time: 00:13 sd2 09/23 23:14 Order name: Urine Dipstick-Ancillary (obtain specimen); Complete Time: 23:29 sd2 09/23 23:14 Order name: Urine Microscopic Only; Complete Time: 00:13 sd2 09/23 23:29 Order name: Urine Dipstick-Ancillary; Complete Time: 00:13 EDMS 09/23 23:34 Order name: Urine --Ancillary (enter results); Complete Time: 00:13 09/23 23:14 Order name: Urine Test (obtain specimen); Complete Time: 23:28 sd2 Administered Medications: 01:01 Drug: traMADol 50 mg Route: PO; tw5 01:01 Follow up: Response: No adverse reaction; Medication administered at discharge. tw5 Disposition Summary: 09/24/22 00:39 Discharge Ordered Location: Home sd2 Problem: an ongoing problem sd2 Symptoms: are unchanged sd2 Condition: Stable sd2 Diagnosis - Chest pain, unspecified sd2 - Dyspnea, unspecified sd2 Followup: sd2 - With: Triston Wheeler MD - When: 2 - 3 days - Reason: Recheck today's complaints, Continuance of care Followup: sd2 - With: Private Physician - When: 2 - 3 days - Reason: Recheck today's complaints, Continuance of care, Re-evaluation by your physician Discharge Instructions: - Discharge Summary Sheet sd2 - Nonspecific Chest Pain, Adult sd2 - Shortness of Breath, Adult, [id number] sd2 Forms: - Medication Reconciliation Form sd2 - Thank You Letter sd2 - Antibiotic Education sd2 - Prescription Opioid Use sd2 Prescriptions: - Tramadol 50 mg Oral Tablet - take 1 tablet by ORAL route every 8 hours as needed; 12 tablet; Refills: 0, sd2 Product Selection Permitted Signatures: Dispatcher [employer] VIOLETA Haley Jolynn tw5 Armando Baer RN RN as6 Anitha Murray MD MD sd2 Jenifer Novak RN RN em6 Corrections: (The following items were deleted from the chart) 09/23 23:29 21:12 32 yo F presents with CC of SOB and generalized weakness progressively worsening. sd2 States was told she had "fluid around my heart" and started on Lasix. Denies formal diagnosis of CHF. States has been compliant with Lasix but SOB has been worsening. . sd2
--- NOTE | 2022-09-24 00:40 | ER ---
Nurse's Notes [facility] Name: Erica Tucker Age: 32 yrs Sex: Female : 1990 Arrival Date: 09/23/2022 Time: 20:07 Bed 1 Private MD: Diagnosis: Chest pain, unspecified;Dyspnea, unspecified Presentation: 09/23 20:57 Chief complaint: Patient states: "I was recently told that I have excess fluid around as6 my heart, and they gave be Lasix, and I am just so short of breath". Coronavirus screen: At this time, the client does not indicate any symptoms associated with coronavirus-19. Ebola Screen: No symptoms or risks identified at this time. Initial Sepsis Screen: Does the patient meet any 2 criteria? No. Patient's initial sepsis screen is negative. Does the patient have a suspected source of infection? No. Patient's initial sepsis screen is negative. Risk Assessment: Do you want to hurt yourself or someone else? Patient reports no desire to harm self or others. Onset of symptoms is unknown. 20:57 Method Of Arrival: Ambulatory as6 20:57 Acuity: NANCY 3 as6 Triage Assessment: 21:02 General: Appears in no apparent distress. Behavior is calm, cooperative. Pain: as6 Complains of pain in chest. Respiratory: Reports shortness of breath. 22:30 Respiratory: the patient has mild shortness of breath. em6 23:30 Respiratory: Onset: The symptoms/episode began/occurred. em6 Historical: - Allergies: 21:01 PENICILLINS; as6 21:01 Phenergan; as6 - Home Meds: 23:31 Eliquis Oral [Active]; em6 - PMHx: 21:01 Atrial fibrillation; Cerebrovascular accident; depressive disorder; as6 Hypercholesterolemia; Hypothyroidism; pseudotumor cerebri; TIA; - PSHx: 21:01 Myringotomy and insertion of tympanic ventilation tube; [place] teeth extraction; as6 - Immunization history:: Client reports receiving the 2nd dose of the Covid vaccine, pfizer Flu vaccine is not up to date. - Social history:: Smoking status: Patient/guardian denies using tobacco, the patient reports quitting approximately 2 years ago. Screenin:23 Abuse screen: Denies threats or abuse. Nutritional screening: No deficits noted. em6 Tuberculosis screening: No symptoms or risk factors identified. Fall Risk IV access (20 points). Total Crowell Fall Scale indicates No Risk (0-24 pts). Assessment: 22:23 General: Appears comfortable, Behavior is cooperative. Pain: Denies pain. Neuro: em6 Root Agitation-Sedation Scale (RASS): 0 - Alert and Calm Reports weakness. Cardiovascular: Reports shortness of breath, Heart tones present Patient's skin is warm and dry. Rhythm is sinus rhythm. Respiratory: Airway is patent Respiratory effort is even, unlabored, Respiratory pattern is regular, symmetrical, Breath sounds are clear bilaterally. GI: No signs and/or symptoms were reported involving the gastrointestinal system. : No signs and/or symptoms were reported regarding the genitourinary system. EENT: No signs and/or symptoms were reported regarding the EENT system. Derm: No signs and/or symptoms reported regarding the dermatologic system. Musculoskeletal: Circulation, motion, and sensation intact. Range of motion: intact in all extremities. 23:20 Reassessment: Patient appears in no apparent distress at this time. No changes from em6 previously documented assessment. Patient and/or family updated on plan of care and expected duration. Pain level reassessed. Patient is alert, oriented x 3, equal unlabored respirations, skin warm/dry/pink. 09/24 01:01 General: Appears in no apparent distress. obese, Behavior is calm, cooperative, tw5 appropriate for age. Vital Signs: 09/23 20:57 BP 118 / 82; Pulse 103; Resp 20 S; Temp 98.5(O); Pulse Ox 100% on R/A; Weight 127.01 kg as6 (R); Height 5 ft. 7 in. (170.18 cm) (R); Pain 7/10; 22:45 BP 122 / 87; Pulse 95; Resp 18; Pulse Ox 100% on R/A; em6 09/24 00:00 BP 121 / 75; Pulse 96; Resp 18; Pulse Ox 100% on R/A; em6 09/23 20:57 Body Mass Index 43.85 (127.01 kg, 170.18 cm) as6 ED Course: 09/23 20:07 Patient arrived in ED. as 20:42 Anitha Murray MD is Attending Physician. sd2 21:01 Triage completed. as6 21:02 Arm band placed on. as6 22:03 XRAY Chest (1 view) In Process Unspecified. EDMS 22:30 Placed in gown. Bed in low position. Call light in reach. Side rails up X2. Cardiac em6 monitor on. Pulse ox on. NIBP on. Warm blanket given. 22:38 Jenifer Novak, RN is Primary Nurse. em6 23:19 COVID-19/FLU A+B Sent. em6 23:22 Inserted saline lock: 20 gauge in right antecubital area, using aseptic technique. as6 Blood collected. 23:29 Urine Microscopic Only Sent. em6 23:29 AMMONIA Sent. em6 23:29 BNP Sent. em6 23:29 Troponin High Sensitivity Sent. em6 23:29 Magnesium Sent. em6 23:29 CMP Sent. em6 23:29 CBC with Diff Sent. em6 11 00:39 Triston Wheeler MD is Referral Physician. sd2 01:01 No provider procedures requiring assistance completed. IV discontinued, intact, tw5 bleeding controlled, No redness/swelling at site. Pressure dressing applied. Administered Medications: 01:01 Drug: traMADol 50 mg Route: PO; tw5 01:01 Follow up: Response: No adverse reaction; Medication administered at discharge. 5 Medication: 01:01 VIS not applicable for this client. 5 Outcome: 00:39 Discharge ordered by . sd2 01:01 Discharged to home ambulatory, with family. tw5 01:01 Condition: good 01:01 Discharge instructions given to patient, Instructed on discharge instructions, follow up and referral plans. medication usage, Demonstrated understanding of instructions, follow-up care, medications, Prescriptions given X 1. 01:04 Patient left the ED. tw5 Signatures: Dispatcher [employer] Piper Noel Tiffany tw5 Armando Baer RN RN as6 Anitha Murray MD MD sd2 Jenifer Novak, RN RN em6
[2022-09-24] MEDS ORDERED: TRAMADOL HCL 50 MG TAB ONE (01:03)
[2022-09-24 01:11] VITALS: TEMP 98.5; O2SAT 100
[2022-09-24 01:13] VITALS: BP 121/75
--- NOTE | 2022-09-24 15:28 | EKG ---
Test Date: 2022-09-23 Test Time: 22:48:49 Energy Audit Advisor: MEASUREMENT RESULTS: Intervals: Rate: 99 IA: 156 QRSD: 88 QT: 334 QTc: 428 [place]: P: 44 IA: 156 QRS: 67 T: 17 INTERPRETIVE STATEMENTS: Normal sinus rhythm Nonspecific T wave abnormality Abnormal ECG Compared to ECG 09/15/2022 20:38:44 T-wave abnormality now present ST (T wave) deviation no longer present Electronically Signed On 09-24-22 15:27:30 DITCH WORKER by Gab Rajan
== END 2022-09-24 01:04 | disposition home or self-care (01) ==
LOC: ER 20:05
DX: R07.89 Other chest pain (principal); R06.00 Dyspnea, unspecified; Z20.822 Contact with and (suspected) exposure to COVID-19; Z88.0 Allergy status to penicillin; Z88.8 Allergy status to other drugs, medicaments and biological substances
CPT/HCPCS: 93005; 85025; 36415; 82140; 83735; 81025; 84484; 80053; 83880; 0240U; 71045; 99284; 81003; 81015

== ENCOUNTER 2022-10-16 15:01 | Observation (INO) | payer OTHER ==
--- OUTSIDE RECORDS SUMMARY | 2022-10-16 15:09 | XMS REPORT | Continuity of Care Document ---
:1990 Author Organization [facility] t Address [address] [place] [address] [address] [place] [address] Care Team Providers Name Role Phone Devaughn Iwona HUBBARD Primary Care Physician [phone] DORIS PAUL Attending Clinician Unavailable Vinicius MEEK, Laura Attending Clinician Unavailable Doctor Unassigned, [place] Attending Clinician Unavailable Dnony Noel MD Attending Clinician Rich Newton MD Attending Clinician ROSSY RUANO Attending Clinician Unavailable Rossy Ruano MD Attending Clinician [phone] Oscar PENALOZA Attending Clinician Unavailable Oscar Narvaez Attending Clinician Steve Abdi MD Attending Clinician Jass Mcnamara MD Attending Clinician Marysol Gerard MD Attending Clinician MARYSOL GERARD Attending Clinician Unavailable JONATAN KEMP Attending Clinician Unavailable FRANCESCO ADAM Attending Clinician Unavailable DORIS STOVALL Attending Clinician Unavailable Doris Stovall MD Attending Clinician Sean Mckeon Attending Clinician SEAN BASS Attending Clinician Unavailable DA GREENE Attending Clinician Unavailable THOMAS ATKINS Attending Clinician Unavailable YOHAN RIVERA Attending Clinician Unavailable BEENA MAZARIEGOS Attending Clinician Unavailable CHERELLE WEINSTEIN Attending Clinician Unavailable Dav Crook Attending Clinician Unavailable RICH NEWTON Admitting Clinician Unavailable Oscar PENALOZA Admitting Clinician Unavailable JASS MCNAMARA Admitting Clinician Unavailable PAULA VELEZ Admitting Clinician Unavailable ELDER BABCOCK Admitting Clinician Unavailable Payers Payer Name Policy Type Policy Number Effective Date Expiration Date S desean [facility] EXCHANGE [id number] 2022 00:00:00 Problems Condition Condition Condition Status Onset Resolution Last Treating Co mments Source Name Details Category Date Date Treatment Clinician Date Chest pain Chest pain Disease Active 2021-11 M ethodi in adult in adult 2-02 [facility] 00:00: Hospita 00 l Shortness Shortness Disease Active 2021-[address] [facility] breath of breath 1-14 Luke s 00:00: [address] Kidney Kidney Disease Active 2020-11 Univers stone stone 2-16 ity of 00:00: [place] 00 [facility] Morbid Morbid Disease Active 2020-11 Univers obesity obesity 2-16 ity of 00:00: [place] 00 [facility] Obstructiv Obstructiv Disease Active 2020-11 U nivers e sleep e sleep 2-16 ity of apnea apnea 00:00: [place] 00 [facility] Cerebrovas Cerebrovas Disease Active 2019- U nivers cular cular 1-05 ity of accident accident 00:00: [place] (CVA) (CVA) 00 [facility] Transient Transient Disease Active 2019- Uni vers ischemic ischemic 1-05 ity of attack attack 00:00: [place] 00 [facility] Hyperlipid Hyperlipid Disease Active 2020-0 U nivers emia emia 2-21 ity of 00:00: [place] [facility] Benign Benign Disease Active 2017-11 Univers intracrani intracrani 0-23 it y of al al 00:00: [place] hypertensi hypertensi 00 Me dical on on Branch Hypothyroi Hypothyroi Disease Active 2016-11 U mohan dism dism 2- ity of 00:00: [place] [facility] Bipolar 1 Bipolar 1 Disease Active 2016-11 Uni vers disorder, disorder, 1-20 [place] of depressed depressed 00:[place] [facility] [place] Posttrauma Posttrauma Disease Active U mohan tic stress tic stress 3-17 it y of disorder disorder 00:00: [place] [facility] Allergies, Adverse Reactions, Alerts Allergy Allergy Status Severity Reaction(s) Onset Inactive Treating Comm ents Source Name Type Date Date Clinician Lactose Propensi Active GI 2021-11 Methodi ty to Intolerance 2-03 st adverse 00:00: Hospita reaction 00 l s to drug PREDNISO Allergy Active Low Palpitations 2021-[address] [facility] 11-29 [facility] 00 Center Predniso Propensi Active Palpitations 2021-[address] [facility] [address] ne ty to 11-29 [facility] adverse 00:00: Medical reaction 00 Center s PENICILL DRUG Active Hives 2021-11 Univers IN INGREDI 11-24 ity of 00:00: [place] 00 Medical Branch Penicill Propensi Active Hives 2021-11 Univer s in ty to 11-24 ity of adverse 00:00: [place] reaction 00 Medical s Branch PENICILL Allergy Active High Hives 2021-[address] [facility] [facility] IN 1-14 [facility] 00:[facility]: Medical 00 Center PROMETHA Allergy Active Other 2021-[address] [facility] ZINE-DM 1-14 [facility] 00:[facility]: Medical 00 Center Penicill Propensi Active Hives 2021-[address] [facility] in ty to 1-14 [facility] adverse 00:00: Medical reaction 00 Center s Prometha Propensi Active Other (See 2021-11 "restless [facility] zine-Dm ty to Comments) 1-14 legs" [facility] adverse 00:00: Medical reaction 00 Center s NSAIDs - Propensi Active 2021-11 CLASS ty to 1-08 adverse 00:00: reaction 00 to drug Penicill Propensi Active 2021-11 ins - ty to 0-31 CLASS adverse 00:00: reaction 00 to drug Penicill DA Active [facility] ins 5-23 [place] 00:[facility]: [facility] [place] prometha DA Active [facility] zine 03-26 [place] 00:00: [facility] [place] PREDNISO DRUG Active Palpitations Un eddie NE INGREDI 4-04 ity of 00:00: [place] 00 Medical Branch PROMETHA DRUG Active Other-Cmnt Univ ers ZINE INGREDI 4-04 ity of 00:00: [place] 00 Medical Branch Predniso Drug Active Palpitations Un eddie ne Allergy 4-04 ity of 00:00: [place] 00 Medical Branch Prometha Drug Active Other - See Restless U nivers zine Allergy comments 02-05 legs ity of 00:00: [place] 00 [facility] Social History Social Habit Start Date Stop Date Quantity Comments Source Exposure to 2022-09-19 2022-09-[address] [facility] SARS-CoV-2 00:00:00 01:26:00 Medical Center (event) Alcohol intake 2022-09-29 2022-09-29 Ex-drinker [facility] 00:00:00 00:00:00 (finding) [facility] Tobacco use and 2022-09-17 2022-09-[address] [facility]ie kes exposure 00:00:00 00:00:00 [facility] History of 2020-09-[address] [facility] tobacco use 00:00:00 [facility] r Sex Assigned At [address] [facility] 00:00:00 00:00:00 [facility] Smoking Status Start Date Stop Date Source Tobacco smoking [facility] consumption unknown Former smoker 2022-09-17 00:00:00 2022-09-[address] [facility] 00:[facility]:00 Center Medications Ordered Filled Start Stop Current Ordering Indication Dosage Frequency Signature Comments Components Source Medication Medication Date Date Medication? Clinician (SIG) Name Name acetaZOLAMI 2021-11 Yes 1000mg QD Take 2 Me thodi DE (DIAMOX) 2-[address] 500 mg 17:25: (1,000 mg Hospit a capsule 07 total) by l mouth nightly. atorvastati 2021-11 Yes 20mg QD Take 1 Meth willie n (LIPITOR) 2-05 tablet (20 st 20 mg 17:25: mg total) Hospita tablet 07 by mouth l daily. Default OP ins QUEtiapine 2021-11 Yes 200mg QD Take 1 Meth willie (SEROquel) 2-[address] 200 MG 17:25: (200 mg Hospita tablet 07 total) by l mouth nightly. FLUoxetine 2021-11 Yes 40mg QD Take 1 Metho di (PROzac) 40 2-[address] MG capsule 17:25: (40 mg Hospi ta 07 total) by l mouth daily. lamoTRIgine 2021-11 Yes 50mg QD Take 2 Meth willie (LaMICtal) 2-[address] 25 MG 17:25: (50 mg Hospita tablet 07 total) by l mouth daily. apixaban 2021-11 Yes 5mg Q.5D Take 2 Methodi (ELIQUIS) 2-05 tablets (5 st 2.5 mg 17:25: mg total) Hospit a tablet 07 by mouth 2 l (two) times a day. B complex 2021-11 Yes 1{capsu QD Take 1 Met hodi with C 2-05 le} capsule by st 20-folic 17:25: mouth Hospita acid 1 mg 07 daily. l capsule levothyroxi 2021-11 Yes 50ug QD Take 1 Meth willie ne 2-05 tablet (50 st (SYNTHROID) 17:25: mcg total) Hospita 50 mcg 07 by mouth l tablet daily. gabapentin 2021-11 Yes 300mg Q.[id number] Take 1 Methodi (NEURONTIN) 2-[id number] 300 mg 17:25: 3D (300 mg Hospita capsule 07 total) by l mouth 3 (three) times a day. acetaZOLAMI 2021-11 Yes 1000mg QD Take 2 Me thodi DE (DIAMOX) 2-[address] 500 mg 17:25: (1,000 mg Hospit a capsule 07 total) by l mouth nightly. atorvastati 2021-11 Yes 20mg QD Take 1 Meth willie n (LIPITOR) 2-05 tablet (20 st 20 mg 17:25: mg total) Hospita tablet 07 by mouth l daily. Default OP ins QUEtiapine 2021-11 Yes 200mg QD Take 1 Meth willie (SEROquel) 2-[address] 200 MG 17:25: (200 mg Hospita tablet 07 total) by l mouth nightly. FLUoxetine 2021-11 Yes 40mg QD Take 1 Metho di (PROzac) 40 2-[address] MG capsule 17:25: (40 mg Hospi ta 07 total) by l mouth daily. lamoTRIgine 2021-11 Yes 50mg QD Take 2 Meth willie (LaMICtal) 2-[address] 25 MG 17:25: (50 mg Hospita tablet 07 total) by l mouth daily. apixaban 2021-11 Yes 5mg Q.5D Take 2 Methodi (ELIQUIS) 2-05 tablets (5 st 2.5 mg 17:25: mg total) Hospit a tablet 07 by mouth 2 l (two) times a day. B complex 2021-11 Yes 1{capsu QD Take 1 Met hodi with C 2-05 le} capsule by st 20-folic 17:25: mouth Hospita acid 1 mg 07 daily. l capsule levothyroxi 2021-11 Yes 50ug QD Take 1 Meth willie ne 2-05 tablet (50 st (SYNTHROID) 17:25: mcg total) Hospita 50 mcg 07 by mouth l tablet daily. gabapentin 2021-11 Yes 300mg Q.[id number] Take 1 Methodi (NEURONTIN) 2-[id number] 300 mg 17:25: 3D (300 mg Hospita capsule 07 total) by l mouth 3 (three) times a day. acetaZOLAMI 2021-11 No 500mg QD Take 1 Me thodi DE (DIAMOX) 210-[address] 500 mg 17:25: 00:00 (500 mg Hospita capsule 07 :00 total) by l mouth daily. acetaZOLAMI 2021-11 No 500mg QD Take 1 Me thodi DE (DIAMOX) 2-03 15-[address] 500 mg 17:25: 00:00 (500 mg Hospita capsule 07 :00 total) by l mouth daily. methylpredn 2021-11 No 125mg 125 mg, U nivers isolone sod 11-25 Slow IV ity of succ 03:15: 02:40 PushKarla (SOLU-MEDRO 00 :00 ONCE, 1 Medic al L) dose, On Branch injection Mon 125 mg 09/24/22 at 2115, SCAR predniSONE 2021-11- Yes [id number] 10mg Take 1 U nivers 10 mg 11-24 tablet by ity of tablet 00:00: 05:59 mouth in [place] 00 :00 the Medical morning Branch and 1 tablet in the evening. Do all this for 4 days. QUEtiapine 2021-11 Yes 200mg QD Take [address] (SEROquel) 1-17 mg by [facility] 200 MG 17:05: mouth Medical tablet 04 nightly. [place] FLUoxetine 2021-11 Yes 40mg QD Take [address] (PROzac) 40 1-17 by mouth Luke s MG capsule 17:05: daily. Medic al 04 Center levothyroxi 2021-11 Yes 50ug Take [address] ne 1-17 mcg by [facility]ukes (SYNTHROID, 17:05: mouth Medic al LEVOTHROID) 04 Every Center 50 MCG morning on tablet an empty stomach. pantoprazol 2021-11 Yes 40mg QD Take [address] [facility] e 1-17 by mouth [facility] (PROTONIX) 17:05: daily. Medic al 40 MG 04 Center tablet QUEtiapine 2021-11 Yes 200mg QD Take [address] (SEROquel) 1-17 mg by [facility] 200 MG 17:05: mouth Medical tablet 04 nightly. [place] FLUoxetine 2021-11 Yes 40mg QD Take [address] (PROzac) 40 1-17 by mouth Luke s MG capsule 17:05: daily. Medic al 04 Center levothyroxi 2021-11 Yes 50ug Take [address] ne 1-17 mcg by Lukes (SYNTHROID, 17:05: mouth Medic al LEVOTHROID) 04 Every Center 50 MCG morning on tablet an empty stomach. pantoprazol 2021-11 Yes 40mg QD Take [address] [facility] e 1-17 by mouth [facility] (PROTONIX) 17:05: daily. Medic al 40 MG 04 Center tablet QUEtiapine 2021-11 Yes 200mg QD Take [address] (SEROquel) 1-17 mg by [facility] 200 MG 17:05: mouth Medical tablet 04 nightly. [place] FLUoxetine 2021-11 Yes 40mg QD Take [address] (PROzac) 40 1-17 by mouth Luke s MG capsule 17:05: daily. Medic al 04 Center levothyroxi 2021-11 Yes 50ug Take [address] ne 1-17 mcg by Lukes (SYNTHROID, 17:05: mouth Medic al LEVOTHROID) 04 Every Center 50 MCG morning on tablet an empty stomach. pantoprazol 2021-11 Yes 40mg QD Take [address] [facility] e 1-17 by mouth [facility] (PROTONIX) 17:05: daily. Medic al 40 MG 04 Center tablet QUEtiapine 2021-11 Yes 200mg QD Take [address] (SEROquel) 1-17 mg by [facility] 200 MG 17:05: mouth Medical tablet 04 nightly. [place] FLUoxetine 2021-11 Yes 40mg QD Take [address] (PROzac) 40 1-17 by mouth Luke s MG capsule 17:05: daily. Medic al 04 [place] levothyroxi 2021-11 Yes 50ug Take [address] ne 1-17 mcg by Lukes (SYNTHROID, 17:05: mouth Medic al LEVOTHROID) 04 Every Center 50 MCG morning on tablet an empty stomach. pantoprazol 2021-11 Yes 40mg QD Take [address] [facility] e 1-17 by mouth [facility] (PROTONIX) 17:05: daily. Medic al 40 MG 04 Center tablet QUEtiapine 2021-11 Yes 200mg QD Take [address] (SEROquel) 1-17 mg by [facility] 200 MG 17:05: mouth Medical tablet 04 nightly. [place] FLUoxetine 2021-11 Yes 40mg QD Take [address] (PROzac) 40 1-17 by mouth Luke s MG capsule 17:05: daily. Medic al 04 [place] levothyroxi 2021-11 Yes 50ug Take [address] ne 1-17 mcg by Lukes (SYNTHROID, 17:05: mouth Medic al LEVOTHROID) 04 Every Center 50 MCG morning on tablet an empty stomach. pantoprazol 2021-11 Yes 40mg QD Take [address] [facility] e 1-17 by mouth [facility] (PROTONIX) 17:05: daily. Medic al 40 MG 04 Center tablet atorvastati 2021-11 10mg QD Take [address] n (LIPITOR) 1-17 11-16 by mouth Sudhakar es 10 MG 17:05: 00:00 daily. Medical tablet 04 :00 Center lamoTRIgine 2021-11- No 50mg QD Take [address] (LaMICtal) -17 -16 by mouth Luke s 25 MG 17:05: 00:00 daily. Medical tablet 04 :00 [place] gabapentin 2021-11- No 300mg Q.[id number] Take [address] (NEURONTIN) -17 -16 [id number] mg by [facility] 300 MG 17:05: 00:00 3D mouth 3 Medical capsule 04 :00 (three) Center times daily. apixaban 2021-11- No 5mg QD Take [address] [address] (Eliquis) 5 -17 -16 by mouth Sudhakar es mg Tab 17:05: 00:00 daily. Medical tablet 04 :00 [place] atorvastati 2021-11- No 10mg QD Take [address] [facility] n (LIPITOR) -17 -16 by mouth Sudhakar es 10 MG 17:05: 00:00 daily. Medical tablet 04 :00 [place] lamoTRIgine 2021-11 No 50mg QD Take [address] (LaMICtal) 17 -16 by mouth Luke s 25 MG 17:05: 00:00 daily. Medical tablet 04 :00 [place] gabapentin 2021-11 No 300mg Q.[id number] Take [address] (NEURONTIN) 17 -16 [id number] mg by [facility] 300 MG 17:05: 00:00 3D mouth 3 Medical capsule 04 :00 (three) Center times daily. apixaban 2021-11- No 5mg QD Take [address] [facility] (Eliquis) 5 -17 -16 by mouth Sudhakar es mg Tab 17:05: 00:00 daily. Medical tablet 04 :00 [place] atorvastati 2021-11- No 10mg QD Take [address] [facility] n (LIPITOR) -17 -16 by mouth Sudhakar es 10 MG 17:05: 00:00 daily. Medical tablet 04 :00 [place] lamoTRIgine 2021-11- No 50mg QD Take [address] (LaMICtal) 1-17 -16 by mouth Luke s 25 MG 17:05: 00:00 daily. Medical tablet 04 :00 [place] gabapentin 2021-11- No 300mg Q.[id number] Take [address] (NEURONTIN) 11-20-16 [id number] mg by [facility] 300 MG 17:05: 00:00 3D mouth 3 Medical capsule 04 :00 (three) Center times daily. apixaban 2021-11- No 5mg QD Take [address] [facility] [address] (Eliquis) 5 11-20-16 by mouth Sudhakar es mg Tab 17:05: 00:00 daily. Medical tablet 04 :00 [place] atorvastati 2021-11- No 10mg QD Take [address] [facility] n (LIPITOR) 11-20-16 by mouth Sudhakar es 10 MG 17:05: 00:00 daily. Medical tablet 04 :00 [place] lamoTRIgine 2021-11- No 50mg QD Take [address] (LaMICtal) 11-20 by mouth Luke s 25 MG 17:05: 00:00 daily. Medical tablet 04 :00 [place] gabapentin 2021-11- No 300mg Q.[id number] Take [address] (NEURONTIN) 11-20- [id number] mg by [facility] 300 MG 17:05: 00:00 3D mouth 3 Medical capsule 04 :00 (three) Center times daily. apixaban 2021-11- No 5mg QD Take [address] [facility] [address] (Eliquis) 5 11-20- by mouth Sudhakar es mg Tab 17:05: 00:00 daily. Medical tablet 04 :00 [place] lamoTRIgine 2021-11- No 50mg QD Take [address] (LaMICtal) 11-2016 by mouth Luke s 25 MG 17:05: 00:00 daily. Medical tablet 04 :00 [place] gabapentin 2021-11- No 300mg Q.[id number] Take [address] (NEURONTIN) 11-20-16 [id number] mg by [facility] 300 MG 17:05: 00:00 3D mouth 3 Medical capsule 04 :00 (three) Center times daily. apixaban 2021-11- No 5mg QD Take [address] [facility] [address] (Eliquis) 5 11-20-16 by mouth Sudhakar es mg Tab 17:05: 00:00 daily. Medical tablet 04 :00 Center atorvastati 2021-11- No 10mg QD Take [address] [facility] n (LIPITOR) 1-17 11-16 by mouth Sudhakar es 10 MG 17:05: 00:00 daily. Medical tablet 04 :00 Center atorvastati 2021-11- Yes 20mg QD Take [address] [facility] n (LIPITOR) 1-16 11-16 tablet (20 L ukes 20 MG 00:00: 23:59 mg total) Medica l tablet 00 :00 by mouth Center nightly. gabapentin 2021-11- Yes 300mg QD Take [address] (NEURONTIN) 1-16 11-16 capsule Luke s 300 MG 00:00: 23:59 (300 mg Medical capsule 00 :00 total) by Center mouth nightly. atorvastati 2021-11- Yes 20mg QD Take [address] [facility] [facility] n (LIPITOR) 1-16 11-16 tablet (20 L ukes 20 MG 00:00: 23:59 mg total) Medica l tablet 00 :00 by mouth Center nightly. gabapentin 2021-11- Yes 300mg QD Take [address] (NEURONTIN) 1-16 11-16 capsule Luke s 300 MG 00:00: 23:59 (300 mg Medical capsule 00 :00 total) by Center mouth nightly. atorvastati 2021-11- Yes 20mg QD Take [address] [facility] [facility] n (LIPITOR) 1-16 11-16 tablet (20 L ukes 20 MG 00:00: 23:59 mg total) Medica l tablet 00 :00 by mouth Center nightly. gabapentin 2021-11- Yes 300mg QD Take [address] (NEURONTIN) 1-16 11-16 capsule Luke s 300 MG 00:00: 23:59 (300 mg Medical capsule 00 :00 total) by Center mouth nightly. atorvastati 2021-11- Yes 20mg QD Take [address] [facility] n (LIPITOR) 1-16 11-16 tablet (20 L ukes 20 MG 00:00: 23:59 mg total) Medica l tablet 00 :00 by mouth Center nightly. gabapentin 2021-11- Yes 300mg QD Take [address] [address] (NEURONTIN) 1-16 11-16 capsule Luke s 300 MG 00:00: 23:59 (300 mg Medical capsule 00 :00 total) by Center mouth nightly. atorvastati 2021-11- Yes 20mg QD Take [address] n (LIPITOR) 11-19 tablet (20 L ukes 20 MG 00:00: 23:59 mg total) Medica l tablet 00 :00 by mouth Center nightly. gabapentin 2021-11- Yes 300mg QD Take [address] [address] (NEURONTIN) 11-19 capsule Luke s 300 MG 00:00: 23:59 (300 mg Medical capsule 00 :00 total) by Center mouth nightly. apixaban 2021-11- Yes 5mg Q.5D Take [address] [address] (Eliquis) 5 11-19 tablet (5 Nathalie kes mg Tab 00:00: 23:59 mg total) Medic al tablet 00 :00 by mouth 2 Center (two) times daily for 30 days. apixaban 2021-11- Yes 5mg Q.5D Take [address] (Eliquis) 5 11-19 tablet (5 Nathalie kes mg Tab 00:00: 23:59 mg total) Medic al tablet 00 :00 by mouth 2 Center (two) times daily for 30 days. apixaban 2021-11- Yes 5mg Q.5D Take [address] [facility] [address] (Eliquis) 5 11-19 tablet (5 Nathalie kes mg Tab 00:00: 23:59 mg total) Medic al tablet 00 :00 by mouth 2 Center (two) times daily for 30 days. apixaban 2021-11- Yes 5mg Q.5D Take [address] [address] (Eliquis) 5 11-19 tablet (5 Nathalie kes mg Tab 00:00: 23:59 mg total) Medic al tablet 00 :00 by mouth 2 Center (two) times daily for 30 days. apixaban 2021-11- Yes 5mg Q.5D Take [address] [address] (Eliquis) 5 11-1916 tablet (5 Nathalie kes mg Tab 00:00: 23:59 mg total) Medic al tablet 00 :00 by mouth 2 Center (two) times daily for 30 days. furosemide 2021-11- Yes 20mg QD Take [address] [facility] [address] (LASIX) 20 11-19 11-21 tablet (20 Nathalie kes MG tablet 00:00: 23:59 mg total) Me dical 00 :00 by mouth Center daily for 5 days. furosemide 2021-11- Yes 20mg QD Take [address] [facility] [address] (LASIX) 20 11-19-21 tablet (20 Nathalie kes MG tablet 00:00: 23:59 mg total) Me dical 00 :00 by mouth Center daily for 5 days. furosemide 2021-11- No 20mg QD Take [address] [facility] [address] (LASIX) 20 11-19-21 tablet (20 Nathalie kes MG tablet 00:00: 23:59 mg total) Me dical 00 :00 by mouth Center daily for 5 days. furosemide 2021-11- No 20mg QD Take [address] [facility] [address] (LASIX) 20 11-19-21 tablet (20 Nathalie kes MG tablet 00:00: 23:59 mg total) Me dical 00 :00 by mouth Center daily for 5 days. furosemide 2021-11- No 20mg QD Take [address] [facility] [address] (LASIX) 20 11-19 tablet (20 Nathalie kes MG tablet 00:00: 23:59 mg total) Me dical 00 :00 by mouth Center daily for 5 days. TAKE 2021-11 No CAPSULE 0-14 FOUR TIMES 00:00: DAILY UNTIL 00 GONE TAKE 2021-11 No TABLET BY 0-14 MOUTH EVERY 00:00: DAY 00 TAKE 2021-11 No CAPSULE 0-14 FOUR TIMES 00:00: DAILY UNTIL 00 GONE TAKE 2021-11 No CAPSULE 0-14 FOUR TIMES 00:00: DAILY UNTIL 00 GONE TAKE 2021-11 No TABLET BY 0-14 MOUTH EVERY 00:00: DAY 00 TAKE 2021-11 No TABLET BY 0-14 MOUTH EVERY 00:00: DAY 00 atorvastati 2021- No 20mg Take 20 mg Univers n 20 mg 06-20 by mouth. ity of tablet 12:00: 00:00 [place] 31 :00 [facility] levothyroxi 2021- No .05ug Take 0.05 Univers ne 50 mcg 06-20 mcg by ity of tablet 12:00: 00:00 mouth [place] 31 :00 every Medical morning. Branch QUEtiapine 2021-0 Yes [id number] TAKE ONE Univers 50 mg 8-17 (1) ity of tablet 00:00: TABLET(S) [place] 00 BY MOUTH Medical IN THE Branch MORNING AND 2 TABLETS AT BEDTIME. divalproex 2021-0 Yes [id number] 250mg Take 1 Univers 250 mg EC 8-17 tablet by ity o f tablet 00:00: mouth in [place] 00 the Medical morning Branch and 1 tablet in the evening. levothyroxi 2021-0 Yes [id number] 50ug Take 1 Univers ne 50 mcg 8-17 tablet by ity o f tablet 00:00: mouth [place] 00 every Medical morning. [place] hydrOXYzine 2021-0 Yes [id number] 50mg Take 1 Univers 50 mg 8-17 tablet by ity of tablet 00:00: mouth 3 [place] 00 (three) Medical times [place] daily as needed for Anxiety. atorvastati 2021-0 Yes [id number] 20mg Take 1 Univers n 20 mg 8-17 tablet by ity of tablet 00:00: mouth at [place] 00 bedtime. [facility] pantoprazol 2021-0 Yes [id number] 40mg Take 1 Univers e 40 mg EC 8-17 tablet by ity of tablet 00:00: mouth in [place] 00 the Medical morning. Branch FLUoxetine 2021-0 Yes [id number] TAKE 1 U nivers 40 mg 8-17 CAPSULE BY ity of capsule 00:00: MOUTH [place] 00 DAILY IN Medical THE Branch MORNING WITH FOOD gabapentin 2021-0 Yes [id number] 300mg Take 1 Univers 300 mg 8-17 [id number] capsule by ity o f capsule 00:00: mouth at [place] 00 bedtime. [facility] QUEtiapine 2021-0 Yes [id number] TAKE ONE Univers 50 mg 8-17 (1) ity of tablet 00:00: TABLET(S) [place] 00 BY MOUTH Medical IN THE [place] MORNING AND 2 TABLETS AT BEDTIME. divalproex 2021-0 Yes [id number] 250mg Take 1 Univers 250 mg EC 8-17 tablet by ity o f tablet 00:00: mouth in [place] 00 the Medical morning Branch and 1 tablet in the evening. levothyroxi 2021-0 Yes [id number] 50ug Take 1 Univers ne 50 mcg 8-17 tablet by ity o f tablet 00:00: mouth [place] 00 every Medical morning. [place] hydrOXYzine 2021-0 Yes [id number] 50mg Take 1 Univers 50 mg 8-17 tablet by ity of tablet 00:00: mouth 3 (three) Medical [facility] daily as needed for Anxiety. atorvastati 2021-0 Yes [id number] 20mg Take 1 Univers n 20 mg 8-17 tablet by ity of tablet 00:00: mouth at [place] 00 bedtime. Medical Branch pantoprazol 2021-0 Yes [id number] 40mg Take 1 Univers e 40 mg EC 8-17 tablet by ity of tablet 00:00: mouth in [place] 00 the Medical morning. Branch FLUoxetine 2021-0 Yes [id number] TAKE 1 U nivers 40 mg 8-17 CAPSULE BY ity of capsule 00:00: MOUTH 00 DAILY IN Medical THE Branch MORNING WITH FOOD gabapentin 2021-0 Yes [id number] 300mg Take 1 Univers 300 mg 8-17 [id number] capsule by ity o f capsule 00:00: mouth at [place] 00 bedtime. Medical Branch QUEtiapine 2021-0 Yes [id number] TAKE ONE Univers 50 mg 8-17 (1) ity of tablet 00:00: TABLET(S) [place] 00 BY MOUTH Medical IN THE Branch MORNING AND 2 TABLETS AT BEDTIME. divalproex 0 Yes [id number] 250mg Take 1 Univers 250 mg EC 8-17 tablet by ity o f tablet 00:00: mouth in [place] 00 the Medical morning Branch and 1 tablet in the evening. levothyroxi 2021-0 Yes [id number] 50ug Take 1 Univers ne 50 mcg 8-17 tablet by ity o f tablet 00:00: mouth [place] 00 every Medical morning. Branch hydrOXYzine 2021-0 Yes [id number] 50mg Take 1 Univers 50 mg 8-17 tablet by ity of tablet 00:00: mouth 3 00 (three) Medical [facility] daily as needed for Anxiety. atorvastati 2021-0 Yes [id number] 20mg Take 1 Univers n 20 mg 8-17 tablet by ity of tablet 00:00: mouth at [place] 00 bedtime. Medical Branch pantoprazol 2021-0 Yes [id number] 40mg Take 1 Univers e 40 mg EC 8-17 tablet by ity of tablet 00:00: mouth in [place] 00 the Medical morning. Branch FLUoxetine 2021-0 Yes [id number] TAKE 1 U nivers 40 mg 8-17 CAPSULE BY ity of capsule 00:00: MOUTH 00 DAILY IN Medical THE Branch MORNING WITH FOOD gabapentin Yes [id number] 300mg Take 1 Univers 300 mg 8-17 [id number] capsule by ity o f capsule 00:00: mouth at [place] 00 bedtime. Medical Branch QUEtiapine 0 Yes [id number] TAKE ONE Univers 50 mg 8-17 (1) ity of tablet 00:00: TABLET(S) [place] 00 BY MOUTH Medical IN THE Branch MORNING AND 2 TABLETS AT BEDTIME. divalproex Yes [id number] 250mg Take 1 Univers 250 mg EC 8-17 tablet by ity o f tablet 00:00: mouth in [place] 00 the Medical morning Branch and 1 tablet in the evening. levothyroxi 0 Yes [id number] 50ug Take 1 Univers ne 50 mcg 8-17 tablet by ity o f tablet 00:00: mouth [place] 00 every Medical morning. Branch hydrOXYzine 0 Yes [id number] 50mg Take 1 Univers 50 mg 8-17 tablet by ity of tablet 00:00: mouth 3 [place] 00 (three) Medical times [place] daily as needed for Anxiety. atorvastati Yes [id number] 20mg Take 1 Univers n 20 mg 8-17 tablet by ity of tablet 00:00: mouth at [place] 00 bedtime. Medical Branch pantoprazol 0 Yes [id number] 40mg Take 1 Univers e 40 mg EC 8-17 tablet by ity of tablet 00:00: mouth in [place] 00 the Medical morning. Branch FLUoxetine Yes [id number] TAKE 1 U nivers 40 mg 8-17 CAPSULE BY ity of capsule 00:00: MOUTH [place] 00 DAILY IN Medical THE [place] MORNING WITH FOOD gabapentin 0 Yes [id number] 300mg Take 1 Univers 300 mg 8-17 [id number] capsule by ity o f capsule 00:00: mouth at [place] 00 bedtime. Medical Branch QUEtiapine 2021-0 2021- No TAKE ONE Un eddie 50 mg 7-18 08-17 (1) ity of tablet 00:00: 00:00 TABLET(S) [place] 00 :00 BY MOUTH Medical IN THE Branch MORNING AND 2 TABLETS AT BEDTIME. FLUoxetine 2021-0 2022- No TAKE 1 Univ ers 40 mg 04-17 CAPSULE BY ity of capsule 00:00: 00:00 MOUTH [place] 00 :00 DAILY IN Medical THE Branch MORNING WITH FOOD hydrOXYzine 50mg Take 50 mg Univers 50 mg 04-17 by mouth 3 ity of tablet 00:00: 00:00 (three) [place] 00 :00 times Medical daily as Branch needed. divalproex 250mg Take 250 U nivers 250 mg EC 04-17 mg by ity of tablet 00:00: 00:00 mouth in [place] 00 :00 the Medical morning Branch and 250 mg in the evening. pantoprazol 2020-11 40mg Take 40 mg Univers e 40 mg EC 12-14 by mouth. ity of tablet 00:00: 00:00 [place] 00 :00 [facility] Vital Signs Vital Name Observation Time Observation Value Comments Source HEIGHT 2022-09-29 01:29:00 170.2 cm WEIGHT 2022-09-29 01:29:00 127.007 kg HEIGHT 2022-09-29 01:29:00 170.2 cm WEIGHT 2022-09-29 01:29:00 127.007 kg HEIGHT 2022-09-29 01:29:00 170.2 cm WEIGHT 2022-09-29 01:29:00 127.007 kg Systolic blood 2022-09-25 03:34:00 140 mm[Hg] Univer sity of pressure [facility] Diastolic blood 2022-09-25 03:34:00 83 mm[Hg] Unive rsity of [facility] Heart rate 2022-09-25 03:34:00 90 /min [facility] Oxygen saturation in 2022-09-25 03:34:00 98 /min [facility] Arterial blood by [facility] Pulse oximetry Branch Respiratory rate 2022-09-25 02:08:00 18 /min [facility] Body temperature 2022-09-25 00:13:00 36 [place] [facility] Body height 2022-09-25 00:13:00 170.2 cm [facility] Body weight 2022-09-25 00:13:00 129.275 kg [facility] BMI 2022-09-25 00:13:00 44.64 kg/m2 [facility] HEIGHT 2022-09-17 13:50:00 170.2 cm WEIGHT 2022-09-17 13:50:00 127.007 kg HEIGHT 2022-09-17 13:50:00 170.2 cm WEIGHT 2022-09-17 13:50:00 127.007 kg HEIGHT 2022-09-17 13:50:00 170.2 cm WEIGHT 2022-09-17 13:50:00 127.007 kg Systolic blood 2022-06-20 16:27:00 132 mm[Hg] Univer sity of pressure [facility] Diastolic blood 2022-06-20 16:27:00 68 mm[facility]Hg] [facility] 2022-06-20 16:27:00 76 /min [facility] Body temperature 2022-06-20 16:27:00 36.28 Sultana [facility] Respiratory rate 2022-06-20 16:27:00 18 /min [facility] Body weight 2022-06-20 16:27:00 120.203 kg [facility] BMI 2022-06-20 16:27:00 41.50 kg/m2 [facility] Body temperature 2022-10-07 22:24:13 36.06 Sultana [facility] Respiratory rate 2022-10-07 22:24:13 17 /min [facility] Systolic blood 2022-10-07 21:50:23 121 mm[Hg] Method [facility] pressure Diastolic blood 2022-10-07 21:50:23 77 mm[Hg] [facility] pressure Heart rate 2022-10-07 21:50:23 86 /min [facility] Oxygen saturation in 2022-10-07 21:50:23 96 /min [facility] Arterial blood by Pulse oximetry Body height 2022-10-05 21:38:00 170.2 cm [facility] Body weight 2022-10-05 21:38:00 127.007 kg [facility] BMI 2022-10-05 21:38:00 43.85 kg/m2 [facility] Systolic blood 2022-09-29 06:56:00 110 mm[Hg] [facility] Diastolic blood 2022-09-29 06:56:00 82 mm[Hg] [facility] Heart rate 2022-09-29 06:56:00 99 /min [facility] Body temperature 2022-09-29 06:56:00 36.67 Sultana [facility] Respiratory rate 2022-09-29 06:56:00 17 /min [facility] Oxygen saturation in 2022-09-29 06:56:00 97 /min [facility] Arterial blood by Medical Ce nter Pulse oximetry Body height 2022-09-29 01:29:00 170.2 cm [facility] Body weight 2022-09-29 01:29:00 127.007 kg [facility] BMI 2022-09-29 01:29:00 43.85 kg/m2 [facility] BP Systolic 2022-09-24 17:07:00 125 mm[Hg] BP Diastolic 2022-09-24 17:07:00 85 mm[Hg] Weight Measured 2022-09-24 17:07:00 287.40 pounds Height Measured 2022-09-24 17:07:00 67.00 inches Body Temperature 2022-09-24 17:07:00 97.60 degrees Heart Rate 2022-09-24 17:07:00 107.00 /min Respiratory Rate 2022-09-24 17:07:00 Heart rate 2022-09-19 09:41:00 89 /min [facility] Systolic blood 2022-09-19 07:56:00 109 mm[Hg] [facility] Diastolic blood 2022-09-19 07:56:00 69 mm[Hg] [facility] Body temperature 2022-09-19 07:56:00 36.78 Sultana [facility] Respiratory rate 2022-09-19 07:56:00 18 /min [facility] Oxygen saturation in 2022-09-19 07:56:00 94 /min [facility] Arterial blood by Medical Ce nter Pulse oximetry Body height 2022-09-18 14:12:00 170.2 cm [facility] Body weight 2022-09-17 13:50:00 127.007 kg [facility] BMI 2022-09-17 13:50:00 43.85 kg/m2 [facility] BP Systolic 2022-09-06 15:38:00 126 mm[Hg] BP [...] inches Procedures Procedure Date / Time Performing Source Performed Clinician REFERRAL- REQUEST/RESPONSE 2022-10-08 06:01:00 Doctor Unassigned , [facility] [place] [facility] URINE CULTURE 2022-10-07 00:24:00 Rich Newton jessica VITAMIN B12 LEVEL 2022-10-07 00:24:00 [facility] VITAMIN D 25 HYDROXY LEVEL 2022-10-07 00:24:00 [facility] ANTINUCLEAR ANTIBODIES (JOSE CARLOS) 2022-10-07 00:24:00 [facility] WITH REFLEX TO TITER AND PATTERN, IMMUNOFLUORESCENCE URINE DRUGS OF ABUSE SCREEN 2022-10-07 00:24:00 [facility] URINALYSIS SCREEN AND 2022-10-07 00:24:00 Dewayne, [facility] MICROSCOPY, WITH REFLEX TO CULTURE HIV 1/2 ANTIGEN/ANTIBODY, 2022-10-07 00:24:00 Dewayne, [facility] FOURTH GENERATION, WITH REFLEXES SYPHILIS TREPONEMA SCREEN 2022-10-07 00:24:00 Dewayne, [facility] WITH RPR CONFIRMATION (REVERSE ALGORITHM) SEDIMENTATION RATE 2022-10-07 00:24:00 [facility]-REACTIVE PROTEIN 2022-10-07 00:24:00 [facility] FOLATE LEVEL 2022-10-07 00:24[facility]00 [facility] AWAKE/ASLEEP LESS THAN 2022-10-06 21:46:42 [facility] [address] HEAD WO CONTRAST 2022-10-06 19:55:34 [facility] TTE COMPLETE, W CONTRAST, W 2022-10-06 14:45:00 [facility] DOPPLER ([id number]) CBC WITH PLATELET AND 2022-10-06 09:37:00 [facility] DIFFERENTIAL PROTHROMBIN TIME WITH INR 2022-10-06 09:37:00 [facility] PARTIAL THROMBOPLASTIN TIME 2022-10-06 09:37:00 [facility] (PTT) CREATINE KINASE, TOTAL (CPK) 2022-10-06 09:37:00 [facility] B NATRIURETIC PEPTIDE 2022-10-06 09:37:00 [facility] COMPREHENSIVE METABOLIC 2022-10-06 09:37:00 [facility] PANEL LIPID PANEL 2022-10-06 09:37:00 [facility] spital MAGNESIUM LEVEL 2022-10-06 09:37:00 [facility] spital PHOSPHORUS LEVEL 2022-10-06 09:37:00 [facility] ospital PREALBUMIN LEVEL 2022-10-06 09:37:00 [facility] ospital THYROID STIMULATING HORMONE 2022-10-06 09:37:00 [facility] T4, FREE 2022-10-06 09:37:00 [facility] spital URIC ACID LEVEL 2022-10-06 09:37:00 [facility] spital BILIRUBIN DIRECT 2022-10-06 09:37:00 [facility] H ospital ESTIMATED GFR 2022-10-06 09:37:00 [facility] spital LACTIC ACID LEVEL, SEPSIS - 2022-10-06 06:50:00 [facility] NOW AND REPEAT 2X EVERY 3 HOURS TROPONIN T 2022-10-06 06:50:00 [facility] CT ANGIOGRAM PE CHEST 2022-10-06 03:13:00 [facility] QUAL[facility]ATIVE RT-PCR 2022-10-06 02:23:00 [facility] BLOOD CULTURE, AEROBIC & 2022-10-06 02:22:00 [facility] ANAEROBIC TROPONIN T 2022-10-06 00:40:00 [facility] LACTIC ACID LEVEL, SEPSIS - 2022-10-06 00:40:00 [facility] NOW AND REPEAT 2X EVERY 3 HOURS US DUPLEX VENOUS UPPER 2022-10-06 00:00:00 [facility] BILATER[facility] CBC WITH PLATELET AND 2022-10-05 21:59:00 Benítez, [facility] DIFFERENTIAL COMPREHENSIVE METABOLIC 2022-10-05 21:59:00 [facility] PANEL TROPONIN T 2022-10-05 21:59:00 [facility] B NATRIURETIC PEPTIDE 2022-10-05 21:59:00 [facility] HCG QUALITATIVE, SERUM 2022-10-05 21:59:00 Benítez, [facility] SCREEN ESTIMATED GFR 2022-10-05 21:59:00 [facility] ECG 12-LEAD 2022-10-05 21:40:19 [facility] ED ECG INTERPRETATION 2022-09-29 21:47:[address] [facility] CBC W/PLT COUNT & AUTO 2022-09-29 03:42:[address] [facility] DIFFERENTIAL [facility] CBC W/PLT COUNT & AUTO 2022-09-29 03:42:00 [facility], [facility] DIFFERENTIAL [facility] (CELLAVISION MANUAL DIFF) 2022-09-29 03:42:00 SorensonoTi, [facility] BASIC METABOLIC PANEL 2022-09-29 03:41:00 [facility] MAGNESIUM 2022-09-29 03:41:00 [facility] HCG, QUANTITATIVE, 2022-09-29 03:41:00 [facility] ECG 12-LEAD 2022-09-29 01:36:03 [facility] ECG 12-LEAD 2022-09-29 01:36:03 Unknown, Hl7 Doctor [facility] ECG 12-LEAD 2022-09-29 01:36:03 Unknown, Hl7 [facility] EKG-SCANNED 2022-09-29 00:00:00 Provider, Default [facility] EBV-MONONUCLEOSIS SCREEN 2022-09-25 02:37:00 Oscar Penaloza [facility] POCT TEST 2022-09-25 02:37:00 Oscar Penaloza [facility] URINE DRUG (IMMUNOASSAY) - 2022-09-25 01:47:00 [facility]EN Medica l Branch XR CHEST 1 VW 2022-09-25 00:46:04 Oscar Penaloza [facility] MAGNESIUM 2022-09-25 00:38:00 Oscar Penaloza [facility] TROPONIN I 2022-09-25 00:38:00 Oscar Penaloza [facility] COMP. METABOLIC PANEL 2022-09-25 00:38:00 Oscar Penaloza [facility] ([id number]) Medical Branch CBC WITH DIFF 2022-09-25 00:38:00 Oscar Penaloza [facility] D-DIMER 2022-09-25 00:38:00 Oscar Penaloza [facility] URINALYSIS 2022-09-25 00:38:00 Oscar Penaloza [facility] N-TERMINAL PRO-BNP 2022-09-25 00:38:00 Oscar Penaloza [facility] CONSENT/REFUSAL FOR 2022-09-25 00:00:04 Doctor Unassigned, [facility] DIAGNOSIS AND TREATMENT [place] [facility] 2D ECHO W/ DOPPLER 2022-09-19 09:42:56 Sathya [facility] (CW/PW/COLOR) [facility] BASIC METABOLIC PANEL 2022-09-19 04:07:00 Ivonne Benitez [facility] MAGNESIUM 2022-09-19 04:07:00 [facility] CBC W/PLT COUNT & AUTO 2022-09-19 04:07:[address] [facility] DIFFERENTIAL [facility] CBC W/PLT COUNT & AUTO 2022-09-19 04:07:[address] [facility] S [facility] DIFFERENTIAL [facility] MR BRAIN WITHOUT IV CONTRAST 2022-09-18 18:52:[address] [facility] MRA NECK WITHOUT IV CONTRAST 2022-09-18 18:51:00 [facility]ha[facility]sol [facility] MRA HEAD WITHOUT IV CONTRAST 2022-09-18 18:50:00 Moustapha [facility] SCREEN, URINE 2022-09-18 17:28:00 [facility] BASIC METABOLIC PANEL 2022-09-18 05:38:00 Ivonne Benitez [facility] MAGNESIUM 2022-09-18 05:38:00 Emmanuel, [facility] CBC W/PLT COUNT & AUTO 2022-09-18 05:38:00 Ivonne Benitez [facility] HIGH SENSITIVITY TROPONIN I 2022-09-18 05:38:00 Emmanuel [facility] TSH/FREE T4 IF INDICATED 2022-09-18 05:38:00 Emmanuel, [facility] CBC W/PLT COUNT & AUTO 2022-09-18 05:38:00 [facility], [facility] ECG 12-LEAD 2022-09-18 04:54:18 Emmanuel [facility] ECG 12-LEAD 2022-09-18 04:54:18 Unknown, Hl7 [facility] ECG 12-LEAD 2022-09-18 04:54:18 Unknown, Hl7 [facility] URINALYSIS W/ MICROSCOPIC 2022-09-18 02:30:00 Ivonne Benitez [facility] ECG 12-LEAD 2022-09-17 22:28:54 Unknown, Hl7 [facility] HIGH SENSITIVITY TROPONIN I 2022-09-17 21:19:00 Severe, [facility] CTA CHEST,ABDOMEN & PELVIS - 2022-09-17 21:03:00 Severe, [facility] FOR DISSECTION [facility] HCG, QUANTITATIVE, 2022-09-17 18:05:00 Severe, [facility] URINALYSIS W/ MICROSCOPIC 2022-09-17 16:03:00 Severe, Steve C [facility] SARS-COV2/RT-PCR (HS & REF 2022-09-17 16:02:00 Severe, [facility]) [facility] CBC W/PLT COUNT & AUTO 2022-09-17 16:02:00 Severe, [facility] COMPREHENSIVE METABOLIC 2022-09-17 16:02:00 Severe, Steve [facility] Center B-TYPE NATRIURETIC FACTOR 2022-09-17 16:02:00 Severe, Steve C [facility] (BNP) [facility] LACTIC ACID, VENOUS 2022-09-17 16:02:00 Severe, Steve [facility] HIGH SENSITIVITY TROPONIN I 2022-09-17 16:02:00 Severe, Steve [facility] CBC W/PLT COUNT & AUTO 2022-09-17 16:02:00 Severe, Steve [facility] DIFFERENTIAL [facility] XR CHEST 2 VIEWS 2022-09-17 14:50:00 Severe, Steve [facility] ECG 12-LEAD 2022-09-17 13:48:54 Severe, Steve [facility] ECG 12-LEAD 2022-09-17 13:48:54 Unknown, [facility]7 [facility] ECG 12-LEAD 2022-09-17 13:48:54 Unknown, Hl7 [facility] EKG-SCANNED 2022-09-17 00:00:00 Provider, Lanette [facility] REFERRAL- REQUEST/RESPONSE 2022-09-03 05:01:00 Doctor Unassigned , [facility] [place] [facility] Plan of Care Planned Activity Planned Date Details Comments Source Future Scheduled 2023-09-[address] [facility] Test 00:00:00 [facility] Scre[facility] (12+) [code = Tobacco Cessation Counseling and Screening (12+)] Future Scheduled 2023-09-[address] [facility] Test 00:00:00 [facility] Screening (12+) [code = Tobacco Cessation Counseling and Screening (12+)] Future Scheduled 2023-09-[address] [facility] Test 00:00:00 [facility] Screening (12+) [code = Tobacco Cessation Counseling and Screening (12+)] Future Scheduled 2023-09-[address] [facility] Test 00:00:00 [facility] r Screening (12+) [code = Tobacco Cessation Counseling and Screening (12+)] Future Scheduled 2023-09-[address] [facility] Test 00:00:00 [facility] r Screening (12+) [code = Tobacco Cessation Counseling and Screening (12+)] Future Scheduled 2022-10-15 HEPATITIS B VACCINES [facility] Test 10:25:35 (1 of 3 - 3-dose series) [code = HEPATITIS B VACCINES (1 of 3 - 3-dose series)] Future Scheduled 2022-10-15 [facility] 10[facility]25[facility]35 screening (procedure) [code = 687792532] Future Scheduled 2022-10-15 [facility] 10:25:35 malignant neoplasm of cervix (procedure) [code = 221228597] Future Scheduled 2022-10-15 COVID-19 VACCINE (3 [facility] Test 10:25:35 - Booster for Pfizer series) [code = COVID-19 VACCINE (3 - Booster for Pfizer series)] Future Scheduled 2022-10-15 INFLUENZA VACCINE [facility] Test 10:25:35 [code = INFLUENZA VACCINE] Future Scheduled 2022-10-15 HEPATITIS B VACCINES [facility] Test 10:25:35 (1 of 3 - 3-dose series) [code = HEPATITIS B VACCINES (1 of 3 - 3-dose series)] Future Scheduled 2022-10-15 [facility] 10:25:35 screening (procedure) [code = 799094307] Future Scheduled 2022-10-15 [facility] 10:25:35 malignant neoplasm of cervix (procedure) [code = 601003725] Future Scheduled 2022-10-15 COVID-19 VACCINE (3 [facility] Test 10:25:35 - Booster for Pfizer series) [code = COVID-19 VACCINE (3 - Booster for Pfizer series)] Future Scheduled 2022-10-15 INFLUENZA VACCINE [facility] Hospital Test 10:25:35 [code = INFLUENZA VACCINE] Future Scheduled 2022-07-[address] [facility] Test 00:00:00 (#1) [code = [facility] INFLUENZA VACCINE (#1)] Future Scheduled 2022-07-[address] [facility] Test 00:00:00 (#1) [code = [facility] INFLUENZA VACCINE (#1)] Future Scheduled 2022-07-[address] [facility] Test 00:00:00 (#1) [code = Medical Center INFLUENZA VACCINE (#1)] Future Scheduled 2022-07-[address] [facility] Test 00:00:00 (#1) [code = Medical Center INFLUENZA VACCINE (#1)] Future Scheduled 2022-07-[address] [facility] Test 00:00:00 (#1) [code = Medical Center INFLUENZA VACCINE (#1)] Future Scheduled 2021-12-11 COVID-19 VACCINE ([address] [facility] Test 00:00:00 - Booster for Pfizer Medical Center series) [code = COVID-19 VACCINE (3 - Booster for Pfizer series)] Future Scheduled 2021-12-11 COVID-19 VACCINE ([address] [facility] Test 00:00:00 - Booster for Pfizer Medical Center series) [code = COVID-19 VACCINE (3 - Booster for Pfizer series)] Future Scheduled 2021-12-11 COVID-19 VACCINE ([address] [facility] Test 00:00:00 - Booster for Pfizer Medical Center series) [code = COVID-19 VACCINE (3 - Booster for Pfizer series)] Future Scheduled 2021-12-11 COVID-19 VACCINE ([address] [facility] Test 00:00:00 - Booster for Pfizer Medical Center series) [code = COVID-19 VACCINE (3 - Booster for Pfizer series)] Future Scheduled 2021-12-11 COVID-19 VACCINE ([address] [facility] Test 00:00:00 - Booster for Pfizer Medical Center series) [code = COVID-19 VACCINE (3 - Booster for Pfizer series)] Future Scheduled [address] [facility] 00:[facility]:00 malignant neoplasm Medical C enter of cervix (procedure) [code = 360321663] Future Scheduled [address] [facility] 00:00:00 malignant neoplasm Medical C enter of cervix (procedure) [code = 008657528] Future Scheduled [address] [facility] 00:00:00 malignant neoplasm Medical C enter of cervix (procedure) [code = 560184588] Future Scheduled [address] [facility] 00:00:00 malignant neoplasm Medical C enter of cervix (procedure) [code = 527769566] Future Scheduled [address] [facility] 00:00:00 malignant neoplasm Medical C enter of cervix (procedure) [code = 361324344] Future Scheduled [address] [facility] 00:[facility]:00 (procedure) [code = [facility] [id number]] Future Scheduled [address] [facility] 00:00:00 (procedure) [code = [facility] [id number]] Future Scheduled [address] [facility] 00:00:00 (procedure) [code = [facility] 48680154] Future Scheduled [address] [facility] 00:00:00 (procedure) [code = [facility] 20961376] Future Scheduled [address] [facility] 00:00:00 (procedure) [code = [facility] 13482613] Future Scheduled 2008 DTAP/TDAP/TD [facility] 00:[facility] VACCINES (4 - Tdap) Medical Center [code = DTAP/TDAP/TD VACCINES (4 - Tdap)] Future Scheduled 2008 DTAP/TDAP/TD [facility] 00:[facility] VACCINES (4 - Tdap) Medical Center [code = DTAP/TDAP/TD VACCINES (4 - Tdap)] Future Scheduled 2008 DTAP/TDAP/TD [facility] 00:[facility]:00 VACCINES (4 - Tdap) Medical Center [code = DTAP/TDAP/TD VACCINES (4 - Tdap)] Future Scheduled 2008 DTAP/TDAP/TD [facility] 00:00:00 VACCINES (4 - Tdap) Medical Center [code = DTAP/TDAP/TD VACCINES (4 - Tdap)] Future Scheduled 2008 DTAP/TDAP/TD [facility] 00:00:00 VACCINES (4 - Tdap) Medical Center [code = DTAP/TDAP/TD VACCINES (4 - Tdap)] Future Scheduled [address] [facility] 00:00:00 SCREENING [code = Medical Ce nter HEPATITIS C SCREENING] Future Scheduled [address] [facility] 00:00:00 SCREENING [code = Medical Ce nter HEPATITIS C SCREENING] Future Scheduled [address] [facility] 00:00:00 SCREENING [code = Medical Ce nter HEPATITIS C SCREENING] Future Scheduled [address] [facility] 00:00:00 SCREENING [code = Medical Ce nter HEPATITIS C SCREENING] Future Scheduled [address] [facility] 00:00:00 SCREENING [code = Medical Ce nter HEPATITIS C SCREENING] Goal Plan of Care Note [code = 98389-1] Goal Plan of Care Note [code = 88914-4] Goal Plan of Care Note [code = 80348-4] Goal Plan of Care Note [code = 15802-1] Goal Plan of Care Note [code = 93506-9] Goal Plan of Care Note [code = 38892-2] Goal Plan of Care Note [code = 16292-8] Goal Plan of Care Note [code = 26986-0] Goal Plan of Care Note [code = 41922-3] Goal Plan of Care Note [code = 71554-0] Goal Plan of Care Note [code = 22340-8] Goal Plan of Care Note [code = 37514-8] Goal Plan of Care Note [code = 55763-8] Goal Plan of Care Note [code = 25514-3] Goal Plan of Care Note [code = 10704-5] Goal Plan of Care Note [code = 63309-7] Goal Plan of Care Note [code = 82974-5] Goal Plan of Care Note [code = 00033-4] Goal Plan of Care Note [code = 49626-5] Goal Plan of Care Note [code = 10690-1] Goal Plan of Care Note [code = 54108-4] Goal Plan of Care Note [code = 47092-8] Goal Plan of Care Note [code = 26656-9] Goal Plan of Care Note [code = 82178-3] Goal Plan of Care Note [code = 71684-9] Goal Plan of Care Note [code = 56857-1] Goal Plan of Care Note [code = 56739-6] Goal Plan of Care Note [code = 65431-6] Goal Plan of Care Note [code = 43371-5] Goal Plan of Care Note [code = 88140-2] Goal Plan of Care Note [code = 11748-5] Goal Plan of Care Note [code = 58692-3] Goal Plan of Care Note [code = 06233-2] Goal Plan of Care Note [code = 41808-5] Goal Plan of Care Note [code = 72481-8] Encounters Start End Encounter Admission Attending Care Care Encounter Source Date/Time Date/Time Type Type Clinicians Facility Department ID 2022-04-24 Outpatient ABHI PAUL URO [id number] 16:04:42 DORIS 2022-10-16 2022-10-16 Outpatient SFA SFA [id number] James 14:25:22 14:25:22 [id number] F Gustabo 2022-10-10 2022-10-10 Patient Vinicius, [id number] Methodi 00:00:00 00:00:00 Outreach Laura [id number] 3.430.2.7 Hospit a .3.411925 l .8 2022-10-10 2022-10-10 Patient Vinicius, 1.2.840.1 [id number] Methodi 00:00:00 00:00:00 Outreach Laura 25413.1.[address] 3.430.2.7 Hospit a .3.354149 l .8 2022-10-08 2022-10-08 Orders Doctor REJI 1.2.840.114 [id number] Univers 00:00:00 00:00:00 Only Unassigned, ARISTEO 350.1.13.10 ity of [place] [facility] 4.2.7.2.686 Miguel Angel as [phone] [place] [address] [address] 2022-10-05 2022-10-07 Emergency Donny Noel 1.2.840.1 1040 [id number] [id number] Methodi 15:40:00 17:25:[address] 3.430.2.7 Hospit a .3.725800 l .8 2022-10-05 2022-10-07 Emergency Donny Noel 1.2.840.1 1040 [id number] Methodi 15:40:00 17:25:[address] [facility]430.2.7 [facility].327[facility] .8 2022-10-02 2022-10-02 Outpatient SFA [facility] [id number] James 13:45:08 13:45:08 45178 F Gustabo 2022-09-29 2022-09-29 Outpatient [facility] [id number] [address] [facility] 00:00:00 23:59:00 David e of Medicin e 2022-09-29 2022-09-29 Emergency ER [facility] SLE Emergency 20 [id number] [facility] 01:36:00 07:44:00 ROSSY OCHOA 2022-09-29 2022-09-29 Emergency ER [facility] [id number] 01:36:00 07:44:00 Rossy ochoa [facility] 2022-09-29 2022-09-29 Emergency [facility] [id number] 01:36:00 07:44:00 Rossy ochoa [facility] 2022-09-29 2022-09-29 Travel [facility] [id number] [facility] 00:00[facility]00 00:00:00 [facility] 2022-09-29 2022-09-29 Travel [facility] [id number] [facility] 00:00[facility] 00:00:00 [facility] 2022-09-24 2022-09-24 Emergency X Oscar PENALOZA [facility] ERT [id number] Univers 18:19:00 21:37:00 ity of [facility] 2022-09-24 2022-09-24 Emergency Oscar Penaloza [facility] 1.2.840.114 [id number] Univers 18:19:00 21:37:00 Krystina LOPEZ 350.1.13.10 i juan daniel [facility] 4.2.7.2.686 [facility] [id number] [address] 2022-09-24 2022-09-24 Outpatient SFA [facility] 756366- James 17:01:48 17:01:48 F Gustabo 2022-09-24 2022-09-24 Outpatient 18108jgx- [id number] 81 750ecf-8 00:00:00 00:00:00 Visit 4m9v-551y o6m-904v-v -w31p-mjs 83e-cedbd8 iy6fu7u18 ce2f51 2022-09-17 2022-09-19 Emergency ER Severe, Steve [facility] [id number] 13:57:00 17:05:00 [facility] 2022-09-17 2022-09-19 Outpatient ER [facility] Emergency [id number] SLE 13:57:00 17:05:00 [facility] 2022-09-17 2022-09-19 Emergency Severe, Steve [facility] [id number] 13:57:00 17:05:00 [facility] 2022-09-18 2022-09-18 Travel [facility] [id number] [facility] 00:00:00 00:00:00 [facility] 2022-09-18 2022-09-18 Travel [facility] [id number] [facility] 00:00:00 00:00:00 [facility] 2022-09-17 2022-09-17 Outpatient [facility] [id number] [address] [facility] 00:00:00 23:59:00 Lawanda 2022-09-17 2022-09-17 Orders [facility] [id number] 00:00:00 00:00:00 [facility] 2022-09-17 2022-09-17 Orders [facility] [id number] 00:00:00 00:00:00 [facility] 2022-09-11 2022-09-11 Outpatient SFA SFA [id number]- James 16:14:02 16:14:02 37173 F Gustabo 2022-09-06 2022-09-06 Outpatient SFA SFA 234173- James 15:21:36 15:21:36 05340 F Gustabo 2022-09-06 2022-09-06 Outpatient v5un0qm1- [id number] f2 xb6hn1-f 00:00:00 00:00:00 Visit y84d-18f3 39a-44a9-a -w884-43v 149-52f05c 11p6r7821 7x8032 2022-09-03 2022-09-03 Outpatient SFA SFA 108967- 202 James 14:25:05 14:25:05 38741 F Gustabo 2022-09-03 2022-09-03 Outpatient 11fccdbf- [id number] 11 fccdbf-f 00:00:00 00:00:00 Visit c408-3017 793-4010-8 -2zw3-995 [id number] 2040z57q6 8e17d2 2022-09-03 2022-09-03 Orders Doctor REJI 1.2.840.114 [id number] Univers 00:00:00 00:00:00 Only Unassigned, ARISTEO 350.1.13.10 ity of [place] [facility] 4.2.7.2.686 Miguel Angel as [id number] [place] [address] [address] 2022-07-11 2022-07-12 [facility] 20:54:00 00:37:00 [facility] 2022-06-20 2022-06-20 Outpatient DORIS BLANCA [facility] [id number] Univers 11:15:00 13:07:14 ity of [facility] 2022-06-20 2022-06-20 Office Doris Stovall 1.2.840.114 [id number] Univers 11:15:00 13:07:14 Visit Y PEDIATRIC 350.1.13.10 [place] [id number] [facility] [address] [facility] 2022-06-19 2022-06-19 Urgent Toñito [facility] 1.2.840.114 [id number] [facility] Univers 16:00:00 16:20:[address] [facility] 350.1.13.10 it y of [place] 4.2.7.2.686 Miguel Angel as HARPREET?BLEA [id number] [address] MEDICAL OFFICE BUILDING 2022-06-19 2022-06-19 Outpatient R TOÑITO, [facility] [id number] Univers 16:00:00 16:00:00 SEAN schneider [facility] 2022-06-19 2022-06-19 Orders Doctor REJI 1.2.840.114 [id number] Univers 00:00:00 00:00:00 Only Unassigned, ARISTEO 350.1.13.10 ity of [place] [facility] 4.2.7.2.686 Miguel Angel as [id number] [address] 2022-04-24 2022-04-24 Outpatient E SHAUNA [facility] 7506 [facility] 06:45:00 18:13:00 DA ZHANG 2022-04-14 2022-04-14 Emergency E MILLY, [facility] 7504 [facility] 14:10:00 18:49:00 THOMAS 2022-04-11 2022-04-13 Outpatient E MIGUEL [facility] 750 3 [facility] 23:00:00 13:40:00 , YOHAN 2022-04-11 2022-04-11 Emergency E WALK, MHCY [facility] 7502 [facility] 04:18:00 06:47:00 BEENA 2022-04-10 2022-04-10 Emergency E JS, MHCY [facility] 7501 MHCY 10:05:00 14:04:00 CHERELLE 2022-03-28 2022-03-28 Emergency E JS, MHCY [facility] 7500 MHCY 14:03:00 20:48:00 CHERELLE 2022-03-26 2022-03-26 Emergency EM Crook, HCATB HCATB [id number] [facility] 21:24:00 22:58:00 Dav [id number] [facility] [place] 2022-03-26 2022-03-26 Emergency EM Crook, HCATB EO3 [id number] [facility] 21:24:00 22:58:00 Dav 03 [facility] [place] Results Test Description Test Time Test Comments Results Result Comments Source Urine culture 2022-10-07 01:05:00 Test Item Value Reference Range Interpretation Comme nts Urine culture (test code = 5186907) SEE COMMENT [facility]. [facility] [id number] 01:05:00 Test Item Value Reference Range Interpretation Comments Urine culture (test SEE COMMENT Bacteriu marija screen code = 1630404) negative. [place] [address] [id number] 22:11:54 Test Item Value Reference Range Interpretation Comments Ventricular rate (test code = 253) Atrial rate (test code = 255) MN interval (test code = 266) QRSD interval (test code = 260) QT interval (test code = 264) QTC interval (test code = 265) P axis 1 (test code = 267) QRS axis 1 (test code = 268) T wave axis (test code = 270) EKG impression (test Normal sinus code = 273) rhythm-Nonspecific T wave abnormality-Abnormal ECG-No previous ECGs available-Electronica lly Signed By Reji Albrecht MD ([id number]) on 10/06/2022 4:11:50 PM [place] [address] [id number] 22:11:54 Test Item Value Reference Range Interpretation Comments Ventricular rate (test code = 253) Atrial rate (test code = 255) MN interval (test code = 266) QRSD interval (test code = 260) QT interval (test code = 264) QTC interval (test code = 265) P axis 1 (test code = 267) QRS axis 1 (test code = 268) T wave axis (test code = 270) EKG impression (test Normal sinus code = 273) rhythm-Nonspecific T wave abnormality-Abnormal ECG-No previous ECGs available-Electronica lly Signed By Reji Albrecht MD ([id number]) on 10/06/2022 4:11:50 PM [facility] [Presence] in Respiratory specimen by MARIA C with probe [id number] 00:39:44 Test Item Value Reference Range Interpretation Comments SARS-CoV-2 (COVID-19) RNA Not detected [Presence] in Respiratory specimen by MARIA C with probe detection (test code = 46699-0) Whether patient is employed in a Unknown healthcare setting (test code = 50146-0) Whether the patient has symptoms Unknown related to condition of interest (test code = 85667-5) Whether the patient was Unknown hospitalized for condition of interest (test code = 24395-4) Whether the patient was admitted Unknown to intensive care unit (ICU) for condition of interest (test code = 61713-1) Whether patient resides in a Unknown congregate care setting (test code = 05230-1) status (test code = Unknown 67992-4) Date and time of symptom onset Unknown (test code = 68399-2) CHELLE PEREZ(CELLAVISION MANUAL DIFF)2022-09-29 06:57:14 Test Item Value Reference Range Interpretation Comments NEUTROPHILS - REL 52 % (CELLAVISION)(BEAKER) (test code = 2816) LYMPHOCYTES - REL 43 % (CELLAVISION)(BEAKER) (test code = 2817) MONOCYTES - REL 4 % (CELLAVISION)(BEAKER) (test code = 2818) BASOPHILS - REL 1 % (CELLAVISION)(BEAKER) (test code = 2820) NEUTROPHILS - ABS 6.97 K/ul 1.56-6.13 H (CELLAVISION)(BEAKER) (test code = 2830) LYMPHOCYTES - ABS 5.76 K/ul 1.18-3.74 H (CELLAVISION)(BEAKER) (test code = 2831) MONOCYTES - ABS 0.54 K/uL 0.24-0.36 H (CELLAVISION)(BEAKER) (test code = 2832) BASOPHILS - ABS 0.13 K/uL 0.01-0.08 H (CELLAVISION)(BEAKER) (test code = 2835) TOTAL COUNTED (BEAKER) (test code 100 = 1351) WBC MORPHOLOGY (BEAKER) (test Normal code = 487) PLT MORPHOLOGY (BEAKER) (test Normal code = 486) POLYCHROMATOPHILLIC RBCS(BEAKER) 2+ moderate (test code = 478) ANISOCYTOSIS (BEAKER) (test code 2+ moderate = 961) MICROCYTES (BEAKER) (test code = 2+ moderate 965) POIKILOCYTES (BEAKER) (test code 1+ few = 966) OVALOCYTES (BEAKER) (test code = 1+ few 477) ARTIFACT (CELLAVISION)(BEAKER) Present (test code = 3432) PLATELET CONCENTRATION Adequate (CELLAVISION)(BEAKER) (test code = 3438) Leather Patcher ID - Carlee BurkhalterUser comments: Slide comments:CBC W/PLT COUNT & AUTO [id number] 06:57:13 Test Item Value Reference Range Interpretation Comments WHITE BLOOD CELL COUNT (BEAKER) 13.4 K/ L 3.5-10.5 H (test code = 775) RED BLOOD CELL COUNT (BEAKER) 4.08 M/ L 3.93-5.22 (test code = 761) HEMOGLOBIN (BEAKER) (test code = 12.1 GM/DL 11.2-15.7 410) HEMATOCRIT (BEAKER) (test code = 34.5 % 34.1-44.9 411) MEAN CORPUSCULAR VOLUME (BEAKER) 85 fL 79-95 (test code = 753) MEAN CORPUSCULAR HEMOGLOBIN 29.7 pg 25.6-32.2 (BEAKER) (test code = 751) MEAN CORPUSCULAR HEMOGLOBIN CONC 35.1 GM/DL 32.2-35.5 (BEAKER) (test code = 752) RED CELL DISTRIBUTION WIDTH 16.4 % 11.7-14.4 H (BEAKER) (test code = 412) PLATELET COUNT (BEAKER) (test 268 K/CU MM 150-450 code = 756) MEAN PLATELET VOLUME (BEAKER) 10.9 fL 9.4-12.3 (test code = 754) NUCLEATED RED BLOOD CELLS 0 /100 WBC 0-0 (BEAKER) (test code = 413) HCG, QUANTITATIVE, [id number] 05:03:53 Test Item Value Reference Range Interpretation Comments GONADOTROPIN, CHORIONIC (HCG) QUANT < mIU/mL 0-10 (BEAKER) (test code = 649) Non- Females: <10 mIU/mL Females: Gestation Age Reference Range(mIU/mL) 0.2-1 Week 5-50 1-2 Weeks 50-500 2-3 Weeks 100-5,000 3-4 Weeks 500-10,000 4-5 Weeks 1,000-50,000 5-6 Weeks 10,000-100,000 6-8 Weeks 15,000- 200,000 2-3 Months 10,000-100,000 Leather Patcher ID - DOROTHY [id number] 04:29:17 Test Item Value Reference Range Interpretation Comments MAGNESIUM (BEAKER) 1.9 mg/dL 1.6-2.6 Specimen slightly (test code = 627) hemolyzed Leather Patcher ID - DOROTHY LBASIC METABOLIC [id number] 04:29:17 Test Item Value Reference Range Interpretation Comments SODIUM (BEAKER) 138 meq/L 136-145 (test code = 381) POTASSIUM 3.4 meq/L 3.5-5.1 L Specimen slight ly (BEAKER) (test hemolyzed code = 379) CHLORIDE (BEAKER) 109 meq/L 98-107 H (test code = 382) CO2 (BEAKER) 19 meq/L 22-29 L (test code = 355) BLOOD UREA 14 mg/dL 7-21 NITROGEN (BEAKER) (test code = 354) CREATININE 0.90 mg/dL 0.57-1.25 Specimen slight ly (BEAKER) (test hemolyzed code = 358) GLUCOSE RANDOM 96 mg/dL 70-105 (BEAKER) (test code = 652) CALCIUM (BEAKER) 8.9 mg/dL 8.4-10.2 (test code = 697) EGFR [...] not as accur ate as Creatinine Brooke reid in predicting glom erular filtration rate . Estimated GFR is not appl icable for dialysis patien ts Leather Patcher ID - PITHOMAS LEBV-MONONUCLEOSIS [id number] 03:07:10 Test Item Value Reference Range Interpretation Comments EBV Mononucleosis Screen (test code Negative Negative = 3566838812) Lab Interpretation (test code = Normal 17814-3) [facility] [id number] 02:37:00 Test Item Value Reference Range Interpretation Comments POCT PREG (test code = 1605) negative On board controls acceptable with present C Line (test code = 3574) POCT PREG LOT # (test code = 3575) [id number] POCT PREG TEST DATE (test 02/02/2024 code = 3576) Lab Interpretation (test code = Normal 40518-9) [facility] [id number] 01:15:13 Test Item Value Reference Interpretation Comments Range TROPONIN I (test 0.002 ng/mL See_Comment [Automated code = 8225641540) message] The system which generated this result transmitted reference range : <=0.034. The reference range was not used to interpret this result as normal/abnormal . JAYDE (test code = Reference (Normal) JAYDE) Range (defined by the 99th percentile reference limit): <= 0.034 ng/mL Note: Cardiac troponin begins to rise 3-4 hours after the onset of ischemia. Repeat in 4-6 hours if the sample was drawn within 3-4 hours of the onset of the symptom and found normal. Diagnosis of myocardial injury is made with acute changes in cTn concentrations with at least one serial sample above the 99th percentile upper reference limit (URL), taken together with the patient's clinical presentation. Biotin has been reported to cause a negative bias, interpret results relative to patient's use of biotin. Lab Interpretation Normal (test code = 20743-9) [facility] [id number] 01:11:55 Test Item Value Reference Range Interpretation Comments NT-proBNP (test code 16 pg/mL See_Comment [Autom ated = 5979681003) message] The system which generated this result transmitted reference range : <=125. The reference range was not used to interpret this result as normal/abnormal . JAYDE (test code = JAYDE) Biotin has been reported to cause a negative bias, interpret results relative to patient's use of biotin. Lab Interpretation Normal (test code = 24635-1) [facility]-[id number] 01:10:03 Test Item Value Reference Interpretation Comments Range D-DIMER (test code = See_Comment [Autom ated 4255358495) message] The system which generated this result transmitted reference range : <0.41 ?g/mL (FEU). The reference range was not used to interpret this result as normal/abnormal . JAYDE (test code = This test may be JAYDE) used in conjunction with a clinical pretest probability (PTP) assessment model to exclude venous thromboembolism (VTE) in patients suspected of deep venous thrombosis (DVT) and pulmonary embolism (PE) A D-Dimer value less than 0.50 ?g/ml (FEU) has a negative predicative value of 96 to 100% (95% CI)and 97 to 100% (95% CI) as an aid in the diagnosis of deep vein thrombosis (DVT) and pulmonary embolism when there is low or moderate pretest probability of PE or DVT. D-Dimer values are expressed in initial fibrinogen equivalent units (FEU)" The assay results should be used with other information, including the clinical context, in forming a diagnosis. Lab Interpretation Normal (test code = 73281-2) [facility]2022-11-22 01:03:37 Test Item Value Reference Range Interpretation Comments MAGNESIUM (test code = 7765544182) 1.9 mg/dL 1.7-2.4 Lab Interpretation (test code = Normal 31730-5) [facility] Center[facility] METABOLIC PANEL (08097)2022-09-25 01:03:36 Test Item Value Reference Range Interpretation Comments NA (test code = 142 mmol/L 135-145 4642574428) K (test code = 3.8 mmol/L 3.5-5.0 4423777804) CL (test code = 111 mmol/L 98-108 H 8650564331) CO2 TOTAL (test code = 21 mmol/L 23-31 L 4529920168) AGAP (test code = 2-16 1815847457) BUN (test code = 11 mg/dL 7-23 1193573466) GLUCOSE (test code = 110 mg/dL 70-110 5877930478) CREATININE (test code = 0.92 mg/dL 0.50-1.04 0201117602) TOTAL BILI (test code = 0.4 mg/dL 0.1-1.4 1972403842) CALCIUM (test code = 9.1 mg/dL 8.6-10.6 3186840242) T PROTEIN (test code = 6.9 g/dL 6.3-8.2 1210280573) ALBUMIN (test code = 4.3 g/dL 3.5-5.0 1086975406) ALK PHOS (test code = 121 U/L 34-122 8283966934) ALTv (test code = 54 U/L 5-35 H 1742-6) AST(SGOT) (test code = 38 U/L 13-40 4846139540) eGFR (test code = mL/min/1.73m2 4853112524) JAYDE (test code = JAYDE) Association of Glomerular Filtration Rate (GFR) and Staging of Kidney Disease* + --+ --+ ------+| GFR (mL/min/1.73 m2) ?| With Kidney Damage ?| ?Without Kidney Damage+ --------+ --------+ +| ?>90 ?| ?Stage one ?| ? Normal ?+ ---+ ---+ -------+| ?60-89 ?| ?Stage two ?| ? Decreased GFR ? + --+ --+ ------+| ?30-59 ?| ?Stage three ?| ? Stage three ? + --+ --+ ------+| ?15-29 ?| ?Stage four ? | ? Stage four ?+ ---+ ---+ -------+| ?<15 (or dialysis) ? ?| ?Stage five ? | ? Stage five ?+ ---+ ---+ -------+ *Each stage assumes the associated GFR level has been in effect for at least three months. ?Stages 1 to 5, with or without kidney disease, indicate chronic kidney disease. Notes: Determination of stages one and two (with eGFR >59mL/min/1.73 m2) requires estimation of kidney damage for at least three months as defined by structural or functional abnormalities of the kidney, manifested by either:Pathological abnormalities or Markers of kidney damage (including abnormalities in the composition of the blood or urine or abnormalities in imaging tests). Lab Interpretation Abnormal (test code = 97016-0) [facility] WITH [id number] 00:50:11 Test Item Value Reference Range Interpretation Comments WBC (test code = See_Comment H [Automated 7791-2) message] The sy stem which generated this result transmitted reference range : 4.30 - 11.10 10*3/?L. The reference range was not used to interpret this result as normal/abnormal . RBC (test code = See_Comment [Automated 799-8) message] The sy stem which generated this result transmitted reference range : 3.93 - 5.25 10*6/?L. The reference range was not used to interpret this result as normal/abnormal . HGB (test code = 11.7 g/dL 11.6-15.0 718-7) HCT (test code = 33.8 % 35.7-45.2 L 4544-3) MCV (test code = 85.4 fL 80.6-95.5 787-2) MCH (test code = 29.5 pg 25.9-32.8 785-6) MCHC (test code = 34.6 g/dL 31.6-35.1 786-4) RDW-SD (test code = 48.3 fL 39.0-49.9 74858-5) RDW-CV (test code = 16.0 % 12.0-15.5 H 788-0) PLT (test code = See_Comment [Automated 777-3) message] The sy stem which generated this result transmitted reference range : 166 - 358 10*3/ ?L. The reference r jason was not used to interpret this result as normal/abnormal . MPV (test code = 9.9 fL 9.5-12.9 95318-6) NRBC/100 WBC (test See_Comment [Automat ed code = 1380253117) message] The system which generated this result transmitted reference range : 0.0 - 10.0 /100 WBCs. The refer ence range was not u sed to interpret th is result as normal/abnormal . NRBC x10^3 (test code See_Comment [Auto mated = 7071345720) message] The s ystem which generated this result transmitted reference range : 10*3/?L. The reference range was not used to interpret this result as normal/abnormal . GRAN MAT (NEUT) % 71.2 % (test code = 770-8) IMM GRAN % (test code 0.90 % = 4868782729) LYMPH % (test code = 20.4 % 736-9) MONO % (test code = 6.0 % 5905-5) EOS % (test code = 1.1 % 713-8) BASO % (test code = 0.4 % 706-2) GRAN MAT x10^3(ANC) 9.94 10*3/uL 1.88-7.09 H (test code = 6848509398) IMM GRAN x10^3 (test 0.12 10*3/uL 0.00-0.06 H code = 2750004574) LYMPH x10^3 (test code 2.84 10*3/uL 1.32-3.29 = 731-0) MONO x10^3 (test code 0.84 10*3/uL 0.33-0.92 = 742-7) EOS x10^3 (test code = 0.15 10*3/uL 0.03-0.39 711-2) BASO x10^3 (test code 0.05 10*3/uL 0.01-0.07 = 704-7) Lab Interpretation Abnormal (test code = 53536-0) [facility]/Doppler(CW/PW/Color)2022-09-19 12:25:54Ejection FractionSLEH ECHO HEARTLAB [facility]Doppler(CW/PW/Color)2022-09-19 12:25:54Ejection FractionSLEH ECHO HEARTLAB [facility] W/Doppler(CW/PW/Color)2022-09-19 12:25:54Ejection FractionSLEH ECHO HEARTLAB [facility] W/Doppler(CW/PW/Color) 2022-09-19 12:25:54Ejection FractionSLEH ECHO HEARTLAB [facility] W/Doppler(CW/PW/Color)2022-09-19 12:25:54Ejection FractionSLEH ECHO HEARTLAB [facility] [id number] 06:21:24 Test Item Value Reference Range Interpretation Comments SODIUM (BEAKER) 139 meq/L 136-145 (test code = 381) POTASSIUM 3.9 meq/L 3.5-5.1 (BEAKER) (test code = 379) CHLORIDE (BEAKER) 108 meq/L 98-107 H (test code = 382) CO2 (BEAKER) 21 meq/L 22-29 L (test code = 355) BLOOD UREA 15 mg/dL 7-21 NITROGEN (BEAKER) (test code = 354) CREATININE 0.83 mg/dL 0.57-1.25 (BEAKER) (test code = 358) GLUCOSE RANDOM 85 mg/dL 70-105 (BEAKER) (test code = 652) CALCIUM (BEAKER) 9.1 mg/dL 8.4-10.2 (test code = 697) EGFR (BEAKER) 95 Interpretatio n of eGFR (test code = [...] not appl icable for dialysis patien ts Leather Patcher ID - BAN [id number] 06:21:24 Test Item Value Reference Range Interpretation Comments MAGNESIUM (BEAKER) (test code = 2.0 mg/dL 1.6-2.6 627) Leather Patcher ID - BAN MCBC W/PLT COUNT & AUTO [id number] 05:15:21 Test Item Value Reference Range Interpretation [...] code = 2801) MR, MRA, BRAIN, WITHOUT [id number] 20:21:00Reason for exam:->Ischemic Stroke EvaluationCO[facility] : 1990 Sex: FFINAL REPORT MR, MRA, NECK, WITHOUT IV CONTRAST, MR, BRAIN, WITHOUT CONTRAST, MR, MRA, BRAIN, WITHOUT CONTRAST INDICATION: Stroke, follow upIschemic Stroke Evaluation TECHNIQUE: Multiplanar, multisequence MR images of the brain. 3-D time of flight MRA of the cranial and cervical circulation. 2-D time of flight MRA of the neck. 3D MIP angiographic post-processing was performed. Sten osis evaluation utilized NASCET criteria. COMPARISON: None FINDINGS: [...] vertebrobasilar system.Posterior cerebral arteries:Patent beyond the quadrigeminal segments.Additionalfindings: None. MRA NECK:Common carotid arteries: Unremarkable. Cervical internal carotid arteries and carotid bulbs: No flow limiting stenosis.Vertebral arteries: No significant extracranial stenosis. IMPRESSION: No acute ischemia or parenchymal hemorrhage. No flow limiting stenosis in the major branch arteries of the cervical or cranial circulation. Signed: Luis Carlos Callahan MDReport Verified Date/Time: 09/18/2022 20:21:23 MR, MRA, NECK, WITHOUT IV [id number] 20:21:00Reason for exam:->[facility]schemic Stroke [facility]CO[facility] : 1990 Sex: FFINAL [...] cervical or cranial circulation. Signed: Luis Carlos Callahan MDReport Verified Date/Time: 09/18/2022 20:21:23 MR, BRAIN, WITHOUT [id number] 20:21:00Reason for exam:->[facility]schem[facility] St[facility]CO[facility] : 1990 Sex: FFINAL [...] cervical or cranial circulation. Signed: Luis Carlos Callahan MDReport Verified Date/Time: 09/18/2022 20:21:23 Screen, [id number] 17:50:03 Test Item Value Reference Range Interpretation Comments Preg Test, Ur (test code = 2111-11) Negative Negative Lab Interpretation (test code = Normal 58384-7) [facility], [id number] 17:50:03 Test Item Value Reference Range Interpretation Comments Preg Test, Ur (test code = 2112-1) Negative Negative Lab Interpretation (test code = Normal 98134-3) [facility], [id number] 17:50:03 Test Item Value Reference Range Interpretation Comments Preg Test, Ur (test code = 2112-1) Negative Negative Lab Interpretation (test code = Normal 76447-4) [facility], [id number] 17:50:03 Test Item Value Reference Range Interpretation Comments Preg Test, Ur (test code = 2112-1) Negative Negative Lab Interpretation (test code = Normal 39753-0) [facility], [id number] 17:50:03 Test Item Value Reference Range Interpretation Comments Preg Test, Ur (test code = 2112-1) Negative Negative Lab Interpretation (test code = Normal 61547-4) [facility]REG[facility]NCY SCREEN, [id number] 17:50:03 Test Item Value Reference Range Interpretation Comments TEST URINE (BEAKER) (test Negative Negative code = 583) Urinalysis w/ [id number] 07:01:05 Test Item Value Reference Range Interpretation Comments Color, UA (test code Yellow = 5778-6) Clarity, UA (test Clear code = 5767-9) Specific [place], UA >1.050 1.001-1.035 H (test code = 5811-5) pH, UA (test code = 9.0 5.0-8.0 H 5803-2) Protein, UA (test 70 mg/dL Negative A code = 69724-3) Glucose, UA (test Negative Negative code = 365) Ketones, UA (test Negative Negative code = 2514-8) Bilirubin, UA (test Negative Negative code = 13474-2) Blood, UA (test code Negative Negative = 45278-8) Nitrite, UA (test Negative Negative code = 5802-4) Leukocytes, UA (test Negative Negative code = 5799-2) Urobilinogen, UA 0.2 0.2-1.0 (test code = 46611-4) RBC, UA (test code = 2 See_Comment [Autom ated 55328-5) message] The system which generated this result transmit ajay reference range : /HPF. The reference range was not used to interpret this result as normal/abnormal . WBC, UA (test code = 1 See_Comment [Autom ated 5821-4) message] The system which generated this result transmit ajay reference range : /HPF. The reference range was not used to interpret this result as normal/abnormal . Sarah Epithpete, UA 4 See_Comment [Automate d (test code = 28093-5) messag e] The system which generated this result transmit ajay reference range : /HPF. The reference range was not used to interpret this result as normal/abnormal . Specimen Source (test Urine, Clean code = 2795) Catch JAYDE (test code = JAYDE) Leather Patcher ID - tech Lab Interpretation Abnormal (test code = 78201-4) [facility]/ [id number] 07:01:05 Test Item Value Reference Range Interpretation Comments Color, UA (test code Yellow = 5778-6) Clarity, UA (test Clear code = 5767-9) Specific [place], UA >1.050 1.001-1.035 H (test code = 5811-5) pH, UA (test code = 9.0 5.0-8.0 H 5803-2) Protein, UA (test 70 mg/dL Negative A code = 49631-1) Glucose, UA (test Negative Negative code = 365) Ketones, UA (test Negative Negative code = 2514-8) Bilirubin, UA (test Negative Negative code = 85007-1) Blood, UA (test code Negative Negative = 09277-3) Nitrite, UA (test Negative Negative code = 5802-4) Leukocytes, UA (test Negative Negative code = 5799-2) Urobilinogen, UA 0.2 0.2-1.0 (test code = 13253-9) RBC, UA (test code = 2 See_Comment [Autom ated 95891-5) message] The system which generated this result transmit ajay reference range : /HPF. The reference range was not used to interpret this result as normal/abnormal . WBC, UA (test code = 1 See_Comment [Autom ated 5821-4) message] The system which generated this result transmit ajay reference range : /HPF. The reference range was not used to interpret this result as normal/abnormal . Sarah Epithel, UA 4 See_Comment [Automate d (test code = 32744-9) messag e] The system which generated this result transmit ajay reference range : /HPF. The reference range was not used to interpret this result as normal/abnormal . Specimen Source (test Urine, Clean code = 2795) Catch JAYDE (test code = JAYDE) Leather Patcher ID - tech Lab Interpretation Abnormal (test code = 48663-0) [facility]/ [id number] 07:01:05 Test Item Value Reference Range Interpretation Comments Color, UA (test code Yellow = 5778-6) Clarity, UA (test Clear code = 5767-9) Specific [place], UA >1.050 1.001-1.035 H (test code = 5811-5) pH, UA (test code = 9.0 5.0-8.0 H 5803-2) Protein, UA (test 70 mg/dL Negative A code = 52316-6) Glucose, UA (test Negative Negative code = 365) Ketones, UA (test Negative Negative code = 2514-8) Bilirubin, UA (test Negative Negative code = 04547-5) Blood, UA (test code Negative Negative = 67982-8) Nitrite, UA (test Negative Negative code = 5802-4) Leukocytes, UA (test Negative Negative code = 5799-2) Urobilinogen, UA 0.2 0.2-1.0 (test code = 54140-1) RBC, UA (test code = 2 See_Comment [Autom ated 28102-1) message] The system which generated this result [...] 4 See_Comment [Automate d (test code = 58737-1) messag e] The system which generated this result transmit ajay reference range : /HPF. The reference range was not used to interpret this result as normal/abnormal . Specimen Source (test Urine, Clean code = 2795) Catch JAYDE (test code = JAYDE) Leather Patcher ID - tech Lab Interpretation Abnormal (test code = 08252-8) [facility]/ [id number] 07:01:05 Test Item Value Reference Range Interpretation Comments Color, UA (test code Yellow = 5778-6) Clarity, UA (test Clear code = 5767-9) Specific [place], UA >1.050 1.001-1.035 H (test code = 5811-5) pH, UA (test code = 9.0 5.0-8.0 H 5803-2) Protein, UA (test 70 mg/dL Negative A code = 68613-6) Glucose, UA (test Negative Negative code = 365) Ketones, UA (test Negative Negative code = 2514-8) Bilirubin, UA (test Negative Negative code = 53163-8) Blood, UA (test code Negative Negative = 77488-5) Nitrite, UA (test Negative Negative code = 5802-4) Leukocytes, UA (test Negative Negative code = 5799-2) Urobilinogen, UA 0.2 0.2-1.0 (test code = 15622-0) RBC, UA (test code = 2 See_Comment [Autom ated 73131-3) message] The system which generated this result transmit ajay reference range : /HPF. The reference range was not used to interpret this result as normal/abnormal . WBC, UA (test code = 1 See_Comment [Autom ated 5821-4) message] The system which generated this result transmit ajya reference range : /HPF. The reference range was not used to interpret this result as normal/abnormal . Squam Epithel, UA 4 See_Comment [Automate d (test code = 90035-3) messag e] The system which generated this result transmit ajay reference range : /HPF. The reference range was not used to interpret this result as normal/abnormal . Specimen Source (test Urine, Clean code = 2795) Catch JAYDE (test code = JAYDE) Leather Patcher ID - tech Lab Interpretation Abnormal (test code = 06523-0) [facility]/ [id number] 07:01:05 Test Item Value Reference Range Interpretation Comments Color, UA (test code Yellow = 5778-6) Clarity, UA (test Clear code = 5767-9) Specific [place], UA >1.050 1.001-1.035 H (test code = 5811-5) pH, UA (test code = 9.0 5.0-8.0 H 5803-2) Protein, UA (test 70 mg/dL Negative A code = 36201-1) Glucose, UA (test Negative Negative code = 365) Ketones, UA (test Negative Negative code = 2514-8) Bilirubin, UA (test Negative Negative code = 08013-3) Blood, UA (test code Negative Negative = 54577-5) Nitrite, UA (test Negative Negative code = 5802-4) Leukocytes, UA (test Negative Negative code = 5799-2) Urobilinogen, UA 0.2 0.2-1.0 (test code = 96890-7) RBC, UA (test code = 2 See_Comment [Autom ated 57716-3) message] The system which generated this result [...] 4 See_Comment [Automate d (test code = 14875-8) messag e] The system which generated this result transmit ajay reference range : /HPF. The reference range was not used to interpret this result as normal/abnormal . Specimen Source (test Urine, Clean code = 2795) Catch JAYDE (test code = JAYDE) Leather Patcher ID - tech Lab Interpretation Abnormal (test code = 51674-9) [facility]/ [id number] 07:01:05 Test Item Value Reference Range Interpretation [...] (test code Urine, Clean Catch = 2795) Leather Patcher ID - [id number] 06:54:51 Test Item Value Reference Range Interpretation Comments MAGNESIUM (BEAKER) (test code = 2.1 mg/dL 1.6-2.6 627) Leather Patcher ID - BAN MBASIC METABOLIC [id number] 06:54:50 Test Item Value Reference Range Interpretation [...] = 358) GLUCOSE RANDOM 87 mg/dL 70-105 (BEAKER) (test code = 652) CALCIUM (BEAKER) 9.4 [...] eGF R is based on the CKD-EPI 202 equation that d oes not use a race coefficientEsti mated GFR is not as accur ate as Creatinine Brooke reid in predicting glom erular filtration rate . Estimated GFR is not appl icable for dialysis patien ts Leather Patcher ID - BAN MTSH/FREE T4 IF [id number] 06:50:48 Test Item Value Reference Range Interpretation Comments THYROID STIMULATING HORMONE 1.889 uIU/mL 0.350-4.940 (BEAKER) (test code = 772) Leather Patcher ID - BAN MHIGH SENSITIVITY TROPONIN [id number] 06:31:22 Test Item Value Reference Range Interpretation Comments HIGH SENSITIVITY < pg/ml See_Comment [Automated message] TROPONIN I (test code = The system which [id number]) generated this result transmitted ref erence range: <=17. Th e reference range was not used to interpr et this result as normal/abnormal . Leather Patcher ID - BAN MThe MANUFACTURING CONTROLS ENGINEER STAT High Sensitivity Troponin-I results should be used in conjunction with other diagnostic information such as ECG, clinical observations and information, and patient symptoms to aid in the diagnosis of NC.CBC W/PLT COUNT & AUTO [id number] 06:05:36 Test Item Value Reference Range Interpretation [...] (test code = 2801) HIGH SENSITIVITY TROPONIN [id number] 22:00:49 Test Item Value Reference Range Interpretation Comments HIGH SENSITIVITY < pg/ml See_Comment [Automated message] TROPONIN I (test code = The system which [id number]) generated this result transmitted ref erence range: <=17. Th e reference range was not used to interpr et this result as normal/abnormal . Leather Patcher ID - MITCHThe MANUFACTURING CONTROLS ENGINEER STAT High Sensitivity Troponin-I results should be used in conjunction with other diagnostic information such as ECG, clinical observations and information, and patientsymptoms to aid in the diagnosis of NC. CTA, CHEST, ABDOMEN - PELVIS, FOR [id number] 21:55:00Unlisted Reason for Exam - Click Yes and Enter Reason Below->YesUnlisted Reason for Exam->Severe chest pain that radiates to the back [facility] 1990 Sex: FFINAL [...] MDReport Verified Date/Time: 09/17/2022 21:55:51 HCG, QUANTITATIVE, [id number] 19:18:36 Test Item Value Reference Range Interpretation Comments GONADOTROPIN, CHORIONIC (HCG) QUANT < mIU/mL 0-10 (BEAKER) (test code = 649) Non- Females: <10 mIU/mL Females: Gestation Age Reference Range(mIU/mL) 0.2-1 Week 5-50 1-2 Weeks 50-500 2-3 Weeks 100-5,000 3-4 Weeks 500-10,000 4-5 Weeks 1,000-50,000 5-6 Weeks 10,000-100,000 6-8 Weeks 15,000- 200,000 2-3 Months 10,000-100,000 Leather Patcher ID - MITCHSARS-CoV2/RT-PCR (Asymptomatic ONLY)2022-09-17 17:05:31 Test Item Value Reference Interpretation Comments Range SARS-COV2/RT-PCR Negative Negative The SARS-Co V-2 (test code = target nucleic 67383-8) acids are not detected in thi s [...] om SARS-CoV-2 in a nasopharyngeal swab specimen collec ajay from individual s suspected of COVID-19 [...] revoked sooner. Fact Sheet for Healthcare Providers: https://www.[employer]/Documents/Xp ert%20Xpress%20SAR S%20CoV-2/Fact%20S heets/302-3802%20S ARS-COV-2%20HEALTH CARE%20PROVIDERS%2 0FACT%20SHEET.pdf Fact Sheet for Healthcare Patients: https://www.[employer]/Documents/Xp ert%20Xpress%20SAR S%20CoV-2/Fact%20S heets/302-3801%20S ARS-COV-2%20PATIEN T%20FACT%20SHEET.p df Lab Interpretation Normal (test code = 76375-3) [facility]22-[facility]17 17:05:31 Test Item Value Reference Interpretation Comments Range SARS-COV2/RT-PCR Negative Negative The SARS-Co V-2 (test code = target nucleic 52620-2) acids are not detected in thi s [...] rapid, real-alexis e RT-PCR test intended for e qualitative detection of nucleic acid fr [...] revoked sooner. Fact Sheet for Healthcare Providers: https://www.[employer]/Documents/Xp ert%20Xpress%20SAR S%20CoV-2/Fact%20S heets/302-3802%20S ARS-COV-2%20HEALTH CARE%20PROVIDERS%2 0FACT%20SHEET.pdf Fact Sheet for Healthcare Patients: https://www.[employer]/Documents/Xp ert%20Xpress%20SAR S%20CoV-2/Fact%20S heets/302-3801%20S ARS-COV-2%20PATIEN T%20FACT%20SHEET.p df Lab Interpretation Normal (test code = 34408-7) [facility]2022-09-17 17:05:31 Test Item Value Reference Interpretation Comments Range SARS-COV2/RT-PCR Negative Negative The SARS-Co V-2 (test code = target nucleic 87789-0) acids are not detected in thi s [...] revoked sooner. Fact Sheet for Healthcare Providers: https://www.[employer]/Documents/Xp ert%20Xpress%20SAR S%20CoV-2/Fact%20S heets/302-3802%20S ARS-COV-2%20HEALTH CARE%20PROVIDERS%2 0FACT%20SHEET.pdf Fact Sheet for Healthcare Patients: https://www.[employer]/Documents/Xp ert%20Xpress%20SAR S%20CoV-2/Fact%20S heets/302-3801%20S ARS-COV-2%20PATIEN T%20FACT%20SHEET.p df Lab Interpretation Normal (test code = 88927-5) [facility]17 17:05:31 Test Item Value Reference Interpretation Comments Range SARS-COV2/RT-PCR Negative Negative The SARS-Co V-2 (test code = target nucleic 73431-1) acids are not detected in thi s [...] of COVID-19 by the ir healthcare provider. AJYDE (test code = This test has been [...] revoked sooner. Fact Sheet for Healthcare Providers: https://www.[employer]/Documents/Xp ert%20Xpress%20SAR S%20CoV-2/Fact%20S heets/302-3802%20S ARS-COV-2%20HEALTH CARE%20PROVIDERS%2 0FACT%20SHEET.pdf Fact Sheet for Healthcare Patients: https://www.[employer]/Documents/Xp ert%20Xpress%20SAR S%20CoV-2/Fact%20S heets/302-3801%20S ARS-COV-2%20PATIEN T%20FACT%20SHEET.p df Lab Interpretation Normal (test code = 32012-8) [facility]2022-09-17 17:05:31 Test Item Value Reference Interpretation Comments Range SARS-COV2/RT-PCR Negative Negative The SARS-Co V-2 (test code = target nucleic 82820-9) acids are not detected in thi s [...] om SARS-CoV-2 in a nasopharyngeal swab specimen collec ajay from individual s suspected of COVID-19 [...] revoked sooner. Fact Sheet for Healthcare Providers: https://www.[employer]/Documents/Xp ert%20Xpress%20SAR S%20CoV-2/Fact%20S heets/3023802%20S ARS-COV-2%20HEALTH CARE%20PROVIDERS%2 0FACT%20SHEET.pdf Fact Sheet for Healthcare Patients: https://www.[employer]/Documents/Xp ert%20Xpress%20SAR S%20CoV-2/Fact%20S heets/302-3801%20S ARS-COV-2%20PATIEN T%20FACT%20SHEET.p df Lab Interpretation Normal (test code = 52111-9) [facility])2022-09-17 17:05:31 Test Item Value Reference Range Interpretation Comments SARS-COV2/RT-PCR Negative Negative The SARS-Co V-2 target (test code = nucleic acids a re not 2049905) detected in thi s specimen. Negative result [...] revoked sooner. Fact Sheet for Healthcare Providers: https://www.[employer] m/Documents/Xpert%20Xpress%20SARS%20CoV-2/Fact%20Sheets/3023802%18JPET-NDN-4%20 HEALTHCARE%20PROVIDERS%20FACT%20SHEET.pdf Fact Sheet for Healthcare Patients: https://www.[employer]/Documents/Xpert%20Xp ress%20SARS%20CoV-2/Fact%20Sheets/302-3801%28SPWR-KOR-8%20PATIENT%20FACT%20SHEET .pdfURINALYSIS W/ [id number] 16:55:30 Test Item Value Reference Range Interpretation [...] (test code Urine, Clean Catch = 2795) Leather Patcher ID - [auto]Leather Patcher ID - techB-TYPE NATRIURETIC FACTOR (BNP)2022-09-17 16:53:49 Test Item Value Reference Range Interpretation Comments B-TYPE NATRIURETIC PEPTIDE (BEAKER) < pg/mL 0-100 (test code = 700) Leather Patcher ID - MITCHHIGH SENSITIVITY TROPONIN [id number] 16:50:10 Test Item Value Reference Range Interpretation Comments HIGH SENSITIVITY < pg/ml See_Comment [Automated message] TROPONIN I (test code = The system which [id number]) generated this result transmitted ref erence range: <=17. Th e reference range was not used to interpr et this result as normal/abnormal . Leather Patcher ID - MITCHThe MANUFACTURING CONTROLS ENGINEER STAT High Sensitivity Troponin-I results should be used in conjunction with other diagnostic information such as ECG, clinical observations and information, and patientsymptoms to aid in the diagnosis of NC. COMPREHENSIVE METABOLIC [id number] 16:46:05 Test Item Value Reference Range Interpretation [...] eGF R is based on the CKD-EPI 2021 equation that d oes not use a race coefficientEsti mated GFR is not as accur ate as Creatinine Brooke franklin in predicting glom erular filtration rate . Estimated GFR is not appl icable for dialysis patien ts Leather Patcher ID - MITCHLACTIC ACID, [id number] 16:29:26 Test Item Value Reference Range Interpretation Comments LACTATE BLOOD VENOUS (2) (BEAKER) 1.86 mmol/L 0.50-2.20 (test code = 2872) Leather Patcher PAM CEVALLOS [facility] W/PLT COUNT & AUTO [id number] 16:21:12 Test Item Value Reference Range Interpretation [...] (test code = 2801) RAD, CHEST, 2 [id number] 14:55:00Reason for exam:->SHORTNESS OF BREATHReason for exam:->[facility] 1990 Sex: FFINAL REPORT INDICATION: SHORTNESS OF BREATHCHEST PAIN COMPARISON: None TECHNIQUE: AP and lateral view of the chest. FINDINGS: Lungs and pleura: Clear lungs. No effusion.Heart and mediastinum: Normal heart size. Unremarkable mediastinal contours.Osseous structures: No acute abnormality.Other: None. IMPRESSION: No acute intrathoracic abnormality. Signed: Joanna Moser MDReport Verified Date/Time: 09/17/2022 14:55:44 Reading Location: [address] Reading Room CULTURE, [id number] 00:00:00 Test Item Value Reference Range Interpretation Comments CULTURE, URINE (test SPECIMEN NUMBER: code = 61145) [id number] CULTURE, [id number] 00:00:00 Test Item Value Reference Range Interpretation Comments CULTURE, URINE (test SPECIMEN NUMBER: code = 45583) [id number] JOSE CARLOS [id number] 00:00:00 Test Item Value Reference Range Interpretation Comments ANTI-NUCLEAR ANTIBODIES (test NEGATIVE code = 3506) JOSE CARLOS PATTERN (REPORTED SEE BELOW TITER) (test code = 06159) HOMOGENEOUS (test code = NEGATIVE TITER 78332) SPECKLED (test code = 526060) NEGATIVE TITER DENSE FINE SPECKLED (test code NEGATIVE TITER = 58446) CENTROMERE (test code = NEGATIVE TITER 609326) COARSE SPECKLED (test code = NEGATIVE TITER 604129) DISCRETE NUCLEAR DOTS (test NEGATIVE TITER code = 808590) NUCLEOLAR (test code = 256578) NEGATIVE TITER NUCLEAR MEMBRANE (test code = NEGATIVE TITER 196354) CYTO. RETICULAR (RAMANDEEP) (test NEGATIVE code = 587522) COMMENTS (test code = 944301) NONE METHOD (test code = 17995) (NOTE) JOSE CARLOS [id number] 00:00:00 Test Item Value Reference Range Interpretation Comments ANTI-NUCLEAR ANTIBODIES (test NEGATIVE code = 3506) JOSE CARLOS PATTERN (REPORTED SEE BELOW TITER) (test code = 83147) HOMOGENEOUS (test code = NEGATIVE TITER 08439) SPECKLED (test code = 942614) NEGATIVE TITER DENSE FINE SPECKLED (test code NEGATIVE TITER = 27804) CENTROMERE (test code = NEGATIVE TITER 490220) COARSE SPECKLED (test code = NEGATIVE TITER 154129) DISCRETE NUCLEAR DOTS (test NEGATIVE TITER code = 819603) NUCLEOLAR (test code = 076029) NEGATIVE TITER NUCLEAR MEMBRANE (test code = NEGATIVE TITER 738658) CYTO. RETICULAR (RAMANDEEP) (test NEGATIVE code = 806621) COMMENTS (test code = 755769) NONE METHOD (test code = 28810) (NOTE) RHEUMATOID FACTOR, [id number] 00:00:00 Test Item Value Reference Range Interpretation Comments RHEUMATOID FACTOR, QUANT (test code 11 IU/ML = 3502) RHEUMATOID FACTOR, [id number] 00:00:00 Test Item Value Reference Range Interpretation Comments RHEUMATOID FACTOR, QUANT (test code 11 IU/ML = 3502) RHEUMATOID FACTOR, [id number] 00:00:00 Test Item Value Reference Range Interpretation Comments RHEUMATOID FACTOR, QUANT (test code 11 IU/ML = 3502) C-REACTIVE [id number] 00:00:00 Test Item Value Reference Range Interpretation Comments C-REACTIVE PROTEIN (test code = 0.5 MG/DL 3513) C-REACTIVE [id number] 00:00:00 Test Item Value Reference Range Interpretation Comments C-REACTIVE PROTEIN (test code = 0.5 MG/DL 3513) SEDIMENTATION [id number] 00:00:00 Test Item Value Reference Range Interpretation Comments SEDIMENTATION RATE (test code = 23 MM/HOUR 1017) SEDIMENTATION [id number] 00:00:00 Test Item Value Reference Range Interpretation Comments SEDIMENTATION RATE (test code = 23 MM/HOUR 1017) CCP [id number] 00:00:00 Test Item Value Reference Range Interpretation Comments CCP IgG (test code = 59579) <0.5 U/ML CCP [id number] 00:00:00 Test Item Value Reference Range Interpretation Comments CCP IgG (test code = 43951) <0.5 U/ML CCP [id number] 00:00:00 Test Item Value Reference Range Interpretation Comments CCP IgG (test code = 86331) <0.5 U/ML COMPREHENSIVE METABOLIC [id number] 00:00:00 Test Item Value Reference Range Interpretation Comments GLUCOSE (test code = 2217) 88 MG/DL BUN (test code = 2208) 14 MG/DL CREATININE (test code = 2214) 0.70 MG/DL eGFR (2020 CKD-EPI) (test 117 ML/MIN/1.73 code = 28241) CALC BUN/CREAT (test code = 20 RATIO 2235) SODIUM (test code = 2231) 142 MEQ/L POTASSIUM (test code = 2228) 4.2 MEQ/L CHLORIDE (test code = 2215) 104 MEQ/L CARBON DIOXIDE (test code = 25 MEQ/L 2205) CALCIUM (test code = 2209) 9.2 MG/DL PROTEIN, TOTAL (test code = 6.6 G/DL 2228) ALBUMIN (test code = 2201) 3.9 G/DL CALC GLOBULIN (test code = 2.7 G/DL 2240) CALC A/G RATIO (test code = 1.4 RATIO 2234) BILIRUBIN, TOTAL (test code = 0.2 MG/DL 2206) ALKALINE PHOSPHATASE (test 122 U/L code = 2204) AST (test code = 2218) 19 U/L ALT (test code = 2219) 24 U/L COMPREHENSIVE METABOLIC [id number] 00:00:00 Test Item Value Reference Range Interpretation Comments GLUCOSE (test code = 2217) 88 MG/DL BUN (test code = 2208) 14 MG/DL CREATININE (test code = 2214) 0.70 MG/DL eGFR (2020 CKD-EPI) (test 117 ML/MIN/1.73 code = 98169) CALC BUN/CREAT (test code = 20 RATIO 2235) SODIUM (test code = 2231) 142 MEQ/L POTASSIUM (test code = 2228) 4.2 MEQ/L CHLORIDE (test code = 2215) 104 MEQ/L CARBON DIOXIDE (test code = 25 MEQ/L 2205) CALCIUM (test code = 220) 9.2 MG/DL PROTEIN, TOTAL (test code = 6.6 G/DL 2228) ALBUMIN (test code = 220) 3.9 G/DL CALC GLOBULIN (test code = 2.7 G/DL 2239) CALC A/G RATIO (test code = 1.4 RATIO 2233) BILIRUBIN, TOTAL (test code = 0.2 MG/DL 2206) ALKALINE PHOSPHATASE (test 122 U/L code = 2204) AST (test code = 2218) 19 U/L ALT (test code = 2219) 24 U/L [id number] 00:00:00 Test Item Value Reference Range Interpretation Comments TSH, THIRD GENERATION (test code 1.670 UIU/ML = 2821) [id number] 00:00:00 Test Item Value Reference Range Interpretation Comments TSH, THIRD GENERATION (test code 1.670 UIU/ML = 2821) [id number] 00:00:00 Test Item Value Reference Range Interpretation Comments TSH, THIRD GENERATION (test code 1.670 UIU/ML = 2821) LIPID [id number] 00:00:00 Test Item Value Reference Range Interpretation Comments CHOLESTEROL (test code = 2210) 132 MG/DL TRIGLYCERIDES (test code = 2232) 105 MG/DL HDL CHOLESTEROL (test code = 2220) 33 MG/DL CALC LDL CHOL (test code = 2237) 80 MG/DL RISK RATIO LDL/HDL (test code = 2.42 RATIO 8) LIPID [id number] 00:00:00 Test Item Value Reference Range Interpretation Comments CHOLESTEROL (test code = 2210) 132 MG/DL TRIGLYCERIDES (test code = 2232) 105 MG/DL HDL CHOLESTEROL (test code = 2220) 33 MG/DL CALC LDL CHOL (test code = 2237) 80 MG/DL RISK RATIO LDL/HDL (test code = 2.42 RATIO 2238) DRUGS OF ABUSE SCREEN [id number] 22:06:00 Test Item Value Reference Range Interpretation [...] (test code = TRICYCU) Neg NEGATIVE HCG [id number] 22:02:00 Test Item Value Reference Range Interpretation [...] after 48 hours toconfirm . URINALYSIS DIPSTICK [id number] 21:55:00 Test Item Value Reference Range Interpretation [...] code = LEUU) - XR CHEST 1 [id number] 21:55:00 [facility] : 1990 Sex: FPatient Name: CAROLINE DURAND Unit No: [id number] EXAMS: CPT: [id number] XR CHEST 1 V [id number] PA CHEST, 03/26/2022. Comparison: None. CLINICAL: Chest [...] (2154) by:[email or web address] Orig Print D/T: S: 03/26/2022 (2158) BATCH NO: N/A Name: CAROLINE DURAND Emergency Dept [place]: [place] [id number] [place] : 1990 Age: 31 Sex: Do Fl[place] [id number] Loc: [facility] Exam Date: 03/26/2022 Status: PRE ER PH: [phone] FAX: PAGE 1 Signed ReportCBC W/AUTO [id number] 21:50:00 Test Item Value Reference Range Interpretation [...] 0.9 10e3/mm3 0.2-1.1 N MX#) TROPONIN I [id number] 21:49:00 Test Item Value Reference Range Interpretation [...] if similar methodology is used. CHEMISTRY 8 [id number] 21:48:00 Test Item Value Reference Range Interpretation [...]
[2022-10-16] MEDS ORDERED: NA CHLORIDE 0.9% 1,000 ML ONE (15:34)
[2022-10-16] MEDS ORDERED: KETOROLAC 30 MG/ML INJ ONE ×2 (15:34→20:20)
[2022-10-16] MEDS ORDERED: ONDANSETRON 4 MG/2 ML VIAL ONE ×2 (15:34→20:20)
[2022-10-16 15:40] LABS: Absolute Lymphocytes (CBC) 2.6 K/uL (0.7-4.9); Hematocrit 34.3 % (36.0-45.0); MCV 88.4 fL (80-100); RBC Red Blood Cell Count 3.88 M/uL (3.86-4.86)
[2022-10-16] MEDS ORDERED: MORPHINE 4 MG/ML SYR ONE (15:46)
[2022-10-16 15:50] LABS: Urine Blood 3+ (Negative); Urine Glucose Negative (Negative); Urine Protein 1+ (Negative); Urine pH 6.5 (5.0-7.0)
[2022-10-16 15:54] LABS: Albumin 3.4 g/dL (3.4-5.0); Bilirubin Total 0.4 mg/dL (0.2-1.0); Potassium 3.6 mmol/L (3.5-5.1); Protein, Total 7.3 g/dL (6.4-8.2)
--- NOTE | 2022-10-16 17:00 | RAD REPORT ---
EXAM DESCRIPTION: CTAbdomen Pelvis W Contrast - 10/16/2022 4:47 pm CLINICAL HISTORY: Abdominal pain. abd pain COMPARISON: No comparisons TECHNIQUE: Biphasic CT imaging of the abdomen and pelvis was performed with 100 ml non-ionic IV cont rast. All CT scans are performed using dose optimization technique as appropriate and may include automated exposure control or mA/KV adjustment according to patient size. FINDINGS: Small bilateral pleural effusions. The liver, spleen, pancreas, adrenal glands and kidneys are within normal limits. Punctate caliceal s tones in both kidneys without hydronephrosis. No bowel obstruction, free air, free fluid or abscess. The appendix is thickened to 11 mm with mild surrounding inflammation most compatible with acute appendicitis. No evidence of significant lymphad enopathy. No suspicious bony findings. IMPRESSION: Acute appendicitis.
--- NOTE | 2022-10-16 17:17 | EDPHYS ---
Physician Documentation [facility] Name: Erica Tucker Age: 32 yrs Sex: Female : 1990 Arrival Date: 10/16/2022 Time: 15:09 Bed 11 Private MD: ED Physician Dwaine Wren HPI: 10/16 15:42 This 32 yrs old Female presents to ER via Ambulatory with complaints of Abdominal Pain. kb 15:42 The patient presents with abdominal pain right lower quadrant. Onset: The kb symptoms/episode began/occurred yesterday, at 11:45. The symptoms do not radiate. Associated signs and symptoms: Pertinent positives: fever. The symptoms are described as constant. Modifying factors: The symptoms are alleviated by nothing, the symptoms are aggravated by movement, pressure. Severity of pain: At its worst the pain was moderate in the emergency department the pain is unchanged. The patient has not experienced similar symptoms in the past. The patient has been recently seen by a physician: the patient's primary care provider, with similar presenting complaints, and was sent to the [facility] Emergency Department for further evaluation. 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 - Social history:: Smoking status: Patient/guardian denies using tobacco, the patient reports quitting approximately 2.5 years ago. ROS: 15:41 Respiratory: Negative for shortness of breath, cough, wheezing, and pleuritic chest kb pain. 15:41 Constitutional: Positive for fever. 15:41 Abdomen/GI: Positive for abdominal pain, Negative for nausea, vomiting, and diarrhea. 15:41 All other systems are negative. Exam: 15:41 Constitutional: This is a well developed, well nourished patient who is awake, alert, kb and in no acute distress. Head/Face: Normocephalic, atraumatic. ENT: Moist Mucous membranes Cardiovascular: Regular rate and rhythm with a normal S1 and S2. No gallops, murmurs, or rubs. No pulse deficits. Respiratory: Respirations even and unlabored. No increased work of breathing. Talking in full sentences Skin: Warm, dry with normal turgor. Normal color. MS/ Extremity: Pulses equal, no cyanosis. Neurovascular intact. Full, normal range of motion. Neuro: Awake and alert, GCS 15, oriented to person, place, time, and situation. Moves all extremities. Normal gait. Psych: Awake, alert, with orientation to person, place and time. Behavior, mood, and affect are within normal limits. 15:41 Abdomen/GI: Inspection: abdomen appears normal, Bowel sounds: normal, Palpation: soft, in all quadrants, mild abdominal tenderness, in the right lower quadrant. Vital Signs: 15:12 BP 101 / 68; Pulse 81; Resp 18; Temp 98.6; Pulse Ox 98% ; Weight 127.01 kg; Height 5 jh5 ft. 7 in. (170.18 cm); Pain 10/10; 15:42 BP 109 / 72; Pulse 76; Resp 18; Pulse Ox 99% on R/A; Pain 8/10; ld1 16:56 BP 114 / 74; Pulse 71; Resp 18; Pulse Ox 99% on R/A; ld1 17:20 BP 104 / 67; Pulse 78; Resp 18; Pulse Ox 100% on R/A; Pain 8/10; ld1 18:14 BP 114 / 72; Pulse 71; Resp 18; Pulse Ox 100% on R/A; Pain 6/10; ld1 19:30 BP 117 / 76; Pulse 75; Resp 18; Pulse Ox 100% on R/A; Pain 2/10; ld1 15:12 Body Mass Index 43.85 (127.01 kg, 170.18 cm) 5 MDM: 15:24 Patient medically screened. kb 15:42 Data reviewed: vital signs, nurses notes. Data interpreted: Pulse oximetry: on room air kb is 98 %. Interpretation: normal. 17:08 Counseling: I had a detailed discussion with the patient and/or guardian regarding: the kb historical points, exam findings, and any diagnostic results supporting the discharge/admit diagnosis, lab results, radiology results, the need for further work-up and treatment in the hospital. 17:10 Physician consultation: Bill Garcia MD was contacted at 17:10, regarding consult, kb patient's condition, and will see patient in OR. 17:16 Physician consultation: Catrachito contacted at 1715. Accepts pt under Dr Lloyd's service. 10/16 15:24 Order name: CBC with Diff; Complete Time: 15:42 kb 10/16 15:24 Order name: CMP; Complete Time: 16:10 kb 10/16 15:24 Order name: Lipase; Complete Time: 16:10 kb 10/16 15:50 Order name: Urine Dipstick-Ancillary; Complete Time: 16:10 EDMS 10/16 15:51 Order name: Urine --Ancillary (enter results); Complete Time: 16:10 bd 10/16 17:28 Order name: Urinalysis EDMS 10/16 15:24 Order name: CT Abd/Pelvis - IV Contrast Only; Complete Time: 17:02 kb 10/16 17:28 Order name: Basic Metabolic Panel EDMS 10/16 17:28 Order name: Basic Metabolic Panel EDMS 10/16 17:28 Order name: CBC with Automated Diff EDMS 10/16 17:28 Order name: CBC with Automated Diff EDMS 10/16 17:30 Order name: SARS-COV-2 Antigen Rapid; Complete Time: 18:48 bd 10/16 15:24 Order name: IV Saline Lock; Complete Time: 15:28 kb 10/16 15:24 Order name: Labs collected and sent; Complete Time: 15:28 kb 10/16 15:24 Order name: Urine Dipstick-Ancillary (obtain specimen); Complete Time: 15:50 kb 10/16 15:24 Order name: Urine Test (obtain specimen); Complete Time: 15:50 kb 10/16 17:25 Order name: NPO EDMS Administered Medications: 15:40 Drug: NS 0.9% 1000 ml Route: IV; Rate: 1 bolus; Site: right antecubital; ld1 17:26 Follow up: Response: No adverse reaction; IV Status: Completed infusion; IV Intake: ld1 1000ml 15:40 Drug: Zofran (Ondansetron) 4 mg Route: IVP; Site: right antecubital; ld1 17:26 Follow up: Response: No adverse reaction ld1 15:40 Not Given (Patient Refused): Ketorolac 15 mg IVP once ld1 15:45 Drug: morphine 4 mg Route: IVP; Infused Over: 4 mins; Site: right antecubital; ld1 17:26 Follow up: Response: No adverse reaction; Pain is decreased ld1 17:40 Drug: fentaNYL (PF) 50 mcg Route: IVP; Site: right antecubital; ld1 19:47 Follow up: Response: Pain is decreased ld1 17:40 Drug: Flagyl (metroNIDAZOLE) 500 mg Volume: 100 ml; Route: IVPB; Rate: 200 ml/hr; ld1 Infused Over: 30 mins; Site: right antecubital; 19:47 Follow up: Response: No adverse reaction; IV Status: Completed infusion ld1 17:40 Drug: Rocephin (cefTRIAXone) 1 grams Route: IV; Rate: calculated rate; Site: right ld1 antecubital; 19:47 Follow up: Response: No adverse reaction; IV Status: Completed infusion ld1 Disposition: 15:51 Co-signature as Attending Physician, Dwaine PRICE was immediately available onsite ms3 in the emergency department for consultation in the care of the patient. Disposition Summary: 10/16/22 17:17 Hospitalization Ordered Hospitalization Status: Observation kb Provider: Stephany Lloyd Location: Telemetry/MedSurg (observation) kb Condition: Stable kb Problem: new kb Symptoms: are unchanged kb Bed/Room Type: Standard Room Assignment: Diagnosis - Unspecified acute appendicitis kb Forms: - Medication Reconciliation Form kb - SBAR form kb Signatures: Dispatcher [employer] EDJessica Park FNP-C FNP-Dwaine Truong DO DO ms3 Viri Mohr RN RN ld1 Inga Sharpe RN RN jh5 Corrections: (The following items were deleted from the chart) 17:17 17:15 Physician consultation: Alcon Denita was contacted at 17:15, regarding kb admission, to the medical/surgical unit. patient's condition, and will see patient in ED, kb
--- NOTE | 2022-10-16 17:17 | ER ---
Nurse's Notes [facility] Name: Erica Tucker Age: 32 yrs Sex: Female : 1990 Arrival Date: 10/16/2022 Time: 15:09 Bed 11 Private MD: Diagnosis: Unspecified acute appendicitis Presentation: 10/16 15:12 Chief complaint: Patient states: yestserday i woke up out of my sleep with my belly jh5 button to the lower right abdomen pain; went to my PCP today and they told me to come here; i had a temp of 101 yesterday but not much today. Coronavirus screen: Vaccine status: Patient reports receiving the 2nd dose of the covid vaccine. Client denies travel out of the [place] in the last 14 days. Ebola Screen: Patient negative for fever greater than or equal to 101.5 degrees Fahrenheit, and additional compatible Ebola Virus Disease symptoms Patient denies exposure to infectious person. Patient denies travel to an Ebola-affected area in the 21 days before illness onset. Initial Sepsis Screen: Does the patient meet any 2 criteria? No. Patient's initial sepsis screen is negative. Does the patient have a suspected source of infection? No. Patient's initial sepsis screen is negative. Risk Assessment: Do you want to hurt yourself or someone else? Patient reports no desire to harm self or others. 15:12 Method Of Arrival: Ambulatory [facility] 15:12 Acuity: NANCY 3 [facility] Triage Assessment: 15:21 General: Appears uncomfortable, obese, Behavior is calm, cooperative, appropriate for [facility] age. Pain: Complains of pain in abdomen. 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 - Social history:: Smoking status: Patient/guardian denies using tobacco, the patient reports quitting approximately 2.5 years ago. Screenin:42 Abuse screen: Denies threats or abuse. Denies injuries from another. Nutritional ld1 screening: No deficits noted. Tuberculosis screening: No symptoms or risk factors identified. Fall Risk No fall in past 12 months (0 pts). Assessment: 15:42 Reassessment: Patient appears in no apparent distress at this time. Patient and/or ld1 family updated on plan of care and expected duration. Pain level reassessed. Patient is alert, oriented x 3, equal unlabored respirations, skin warm/dry/pink. See triage assessment. General: Appears in no apparent distress. comfortable, Behavior is calm, cooperative, appropriate for age. Pain: Complains of pain in right lower quadrant and abdomen Pain does not radiate. Pain currently is 8 out of 10 on a pain scale. Quality of pain is described as sharp, shooting, throbbing, Pain began 1 day ago. Is intermittent. Neuro: Level of Consciousness is awake, alert, obeys commands, Oriented to person, place, time, situation. Cardiovascular: Capillary refill < 3 seconds Patient's skin is warm and dry. Respiratory: Airway is patent Respiratory effort is even, unlabored. GI: Abdomen is round non-distended, Bowel sounds present X 4 quads. Abd is soft Abdomen is tender to palpation in right lower quadrant and left lower quadrant. : No signs and/or symptoms were reported regarding the genitourinary system. 16:56 Reassessment: Patient appears in no apparent distress at this time. Patient and/or ld1 family updated on plan of care and expected duration. Pain level reassessed. 17:30 Reassessment: Pt c/o abdominal pain - notified ERP. See [facility]NER for orders. ld1 18:00 Reassessment: Patient appears in no apparent distress at this time. Patient and/or ld1 family updated on plan of care and expected duration. Pain level reassessed. 19:30 Reassessment: Patient appears in no apparent distress at this time. No changes from ld1 previously documented assessment. Patient and/or family updated on plan of care and expected duration. Pain level reassessed. Patient is alert, oriented x 3, equal unlabored respirations, skin warm/dry/pink. 19:40 Reassessment: OR team at bedside - transporting pt to OR. Pt denies concerns at this ld1 time. Vital Signs: 15:12 BP 101 / 68; Pulse 81; Resp 18; Temp 98.6; Pulse Ox 98% ; Weight 127.01 kg; Height 5 5 ft. 7 in. (170.18 cm); Pain 10/10; 15:42 BP 109 / 72; Pulse 76; Resp 18; Pulse Ox 99% on R/A; Pain 8/10; ld1 16:56 BP 114 / 74; Pulse 71; Resp 18; Pulse Ox 99% on R/A; ld1 17:20 BP 104 / 67; Pulse 78; Resp 18; Pulse Ox 100% on R/A; Pain 8/10; ld1 18:14 BP 114 / 72; Pulse 71; Resp 18; Pulse Ox 100% on R/A; Pain 6/10; ld1 19:30 BP 117 / 76; Pulse 75; Resp 18; Pulse Ox 100% on R/A; Pain 2/10; ld1 15:12 Body Mass Index 43.85 (127.01 kg, 170.18 cm) [facility] ED Course: 15:09 Patient arrived in ED. 5 15:11 Jessica Amado FNP-C is [facility]. kb 15:11 Dwaine Wren DO is Attending Physician. kb 15:21 Triage completed. jh5 15:21 Arm band placed on right wrist. 5 15:28 Inserted saline lock: 20 gauge in right antecubital area, using aseptic technique. 5 15:42 Viri Mohr, RN is Primary Nurse. ld1 15:42 Patient has correct armband on for positive identification. Placed in gown. Bed in low ld1 position. Call light in reach. Side rails up X2. soap inspector on. Pulse ox on. NIBP on. Door closed. Noise minimized. Warm blanket given. 15:42 No provider procedures requiring assistance completed. ld1 16:49 CT Abd/Pelvis - IV Contrast Only In Process Unspecified. EDMS 17:17 Stephany Lloyd MD is Hospitalizing Provider. kb 19:48 Patient admitted, IV remains in place. ld1 Administered Medications: 15:40 Drug: NS 0.9% 1000 ml Route: IV; Rate: 1 bolus; Site: right antecubital; ld1 17:26 Follow up: Response: No adverse reaction; IV Status: Completed infusion; IV Intake: ld1 1000ml 15:40 Drug: Zofran (Ondansetron) 4 mg Route: IVP; Site: right antecubital; ld1 17:26 Follow up: Response: No adverse reaction ld1 15:40 Not Given (Patient Refused): Ketorolac 15 mg IVP once ld1 15:45 Drug: morphine 4 mg Route: IVP; Infused Over: 4 mins; Site: right antecubital; ld1 17:26 Follow up: Response: No adverse reaction; Pain is decreased ld1 17:40 Drug: fentaNYL (PF) 50 mcg Route: IVP; Site: right antecubital; ld1 19:47 Follow up: Response: Pain is decreased ld1 17:40 Drug: Flagyl (metroNIDAZOLE) 500 mg Volume: 100 ml; Route: IVPB; Rate: 200 ml/hr; ld1 Infused Over: 30 mins; Site: right antecubital; 19:47 Follow up: Response: No adverse reaction; IV Status: Completed infusion ld1 17:40 Drug: Rocephin (cefTRIAXone) 1 grams Route: IV; Rate: calculated rate; Site: right ld1 antecubital; 19:47 Follow up: Response: No adverse reaction; IV Status: Completed infusion ld1 Medication: 15:42 VIS not applicable for this client. ld1 Intake: 17:26 IV: 1000ml; Total: 1000ml. ld1 Outcome: 17:17 Decision to Hospitalize by Provider. kb 19:48 Admitted to OR accompanied by nurse, via wheelchair, with chart. ld1 19:48 Condition: stable 19:48 Instructed on the need for admit. 19:48 Patient left the ED. ld1 Signatures: Dispatcher [employer] EDJessica Park FNP-C FNP-Viri Moss RN RN ld1 Inga Sharpe RN RN jh5 Vicki Walter cc5 Corrections: (The following items were deleted from the chart) 19:46 19:45 Reassessment: Patient appears in no apparent distress at this time. No changes ld1 from previously documented assessment. Patient and/or family updated on plan of care and expected duration. Pain level reassessed. Patient is alert, oriented x 3, equal unlabored respirations, skin warm/dry/pink. ld1
[2022-10-16] MEDS ORDERED: ACETAMINOPHEN 325 MG TABLET PO PRN (17:23)
[2022-10-16] MEDS ORDERED: MORPHINE 4 MG/ML SYR IV PRN (17:24)
[2022-10-16] MEDS ORDERED: PROMETHAZINE 25 MG TABLET PO PRN (17:26)
--- NOTE | 2022-10-16 17:27 | P.HP ---
Certification for Inpatient Patient admitted to: Observation With expected LOS: <2 Midnights Patient will require the following post-hospital care: None Practitioner: I am a practitioner with admitting privileges, knowledge of patient current condition, hospital course, and medical plan of care. Services: Services provided to patient in accordance with Admission requirements found in Title 42 Section 412.3 of the Code of Federal Regulations Patient History Date of Service: 10/17/22 Reason for admission: Abdominal pain History of Present Illness: Patient is a 32-year-old female with a past medical history significant for atrial fibrillation, CVA, depression, HLD, hypothyroidism who presents with complaint of abdominal pain. Patient reported that she started feeling pain in the periumbilical area yesterday and pain later migrated to her right lower quadrant. Patient rated pain as 8/10 in severity and described pain as sharp in quality. Patient reported associated signs and symptoms of nausea, chills and subjective fever. Patient denies any other signs or symptoms. Symptoms are aggravated or relieved by nothing. Patient decided to present to the hospital due to worsening symptoms. Allergies gluten Allergy (Verified 10/16/22 19:34) Nausea/Vomiting Penicillins Allergy (Verified 10/16/22 19:34) Hives/Rash prednisone Allergy (Verified 10/16/22 19:34) RAPID HEART RATE promethazine [From Phenergan] Allergy (Verified 10/16/22 19:34) RESTLESS LEGS Home Medications: Albuterol Inhaler [Ventolin Inhaler*] 1 - 2 puff IH Q4HP PRN 10/16/22 Apixaban [Eliquis] 5 mg PO BID 10/16/22 Atorvastatin Calcium [Lipitor*] 20 mg PO BEDTIME 10/16/22 Budesonide/Formoterol Fumarate [Budesonide-Formoterol 160-4.5] 2 puff IH BID 10/16/22 Fluoxetine HCl [Prozac] 40 mg PO BEDTIME 10/16/22 Gabapentin 300 mg PO TID 10/16/22 Lamotrigine [Lamictal] 50 mg PO DAILY 10/16/22 Levothyroxine Sodium [Levothyroxine] 50 mcg PO DAILY 10/16/22 Montelukast Sodium 10 mg PO DAILY 10/16/22 Pantoprazole [Protonix Tab*] 40 mg PO DAILY 10/16/22 Quetiapine Fumarate [Seroquel] 200 mg PO BEDTIME 10/16/22 acetaZOLAMIDE [Acetazolamide ER] 1,000 mg PO BEDTIME 10/16/22 - Past Medical/Surgical History -: Hypothyroidism -: Afib -: CVA -: Obesity -: Depression Past Surgical History: Reviewed- Non-Contributory - Family History Family History: Reviewed- Non-Contributory - Social History Alcohol use: Yes CD- Drugs: No Caffeine use: Yes Place of Residence: Home Review of Systems General: Fever, Chills Eyes: Unremarkable ENT: Unremarkable Respiratory: As per HPI Cardiovascular: Unremarkable Gastrointestinal: Nausea, Abdominal Pain Genitourinary: Unremarkable Musculoskeletal: Unremarkable Integumentary: Unremarkable Neurological: Unremarkable Lymphatics: Unremarkable Physical Examination - Physical Exam General: Alert, In no apparent distress, Oriented x3, Cooperative, Mild distress HEENT: Atraumatic, PERRLA, Mucous membr. moist/pink, EOMI, Sclerae nonicteric Neck: Supple, 2+ carotid pulse no bruit, No LAD, Without JVD or thyroid abnormality Respiratory: Clear to auscultation bilaterally, Normal air movement Cardiovascular: No edema, Regular rate/rhythm, Normal S1 S2 Capillary refill: <2 Seconds Gastrointestinal: Normal bowel sounds, Tenderness Musculoskeletal: No clubbing, No swelling, No tenderness Integumentary: No rashes, No breakdown, No significant lesion Neurological: Normal gait, Normal speech, Normal strength at 5/5 x4 extr, Normal tone, Normal affect Lymphatics: No axilla or inguinal lymphadenopathy - Studies Laboratory Data (last 24 hrs) 10/16/22 15:30: Sodium 140, Potassium 3.6, BUN 16, Creatinine 0.92, Glucose 100, Total Bilirubin 0.4, AST 14 L, ALT 33, Alkaline Phosphatase 129 H, Lipase 104 10/16/22 15:30: WBC 9.90, Hgb 11.6 L, Hct 34.3 L, Plt Count 296 Assessment and Plan - Plan -- Acute appendicitis. Noted on imaging. Surgeon consulted. Surgeon plans a laparoscopic appendectomy. Patient placed on antibiotics. Will await further recommendations from surgeon. -- Nausea. Antiemetics on board. Continue supportive care --Acute pain. We will manage pain with current pain medication regimen. --Atrial fibrillation. Patient last dose of Eliquis was yesterday. We will hold off on Eliquis. Telemetry to monitor for any significant arrhythmia. --History of CVA. Continue aspirin, Eliquis and statin when appropriate. --Hyperlipidemia. Continue statin when appropriate. --Depression. Continue home medications. --Hypothyroidism. Continue home medication. --Class III obesity. Likely secondary to excess calories intake. Patient counseled on weight reduction, diet and exercise therapy. --Anemia of chronic disease. H&H stable. We will continue to monitor hemoglobin and transfuse if less than 7.0. --CKD 2. Stable. We will Continue to monitor renal functions. --GERD. Continue protonix --DVT prophylaxis with SCDs. Discharge Plan: Home Plan to discharge in: 48 Hours - Advance Directives Does patient have a Living Will: No Does patient have a Durable POA for Healthcare: No - Code Status/Comfort Care Code Status Assessed: Yes Physician Review: Patient Assessed, Agree with Above Assessment and Plan Critical Care: No
[2022-10-16] MEDS ORDERED: CEFTRIAXONE 1000 MG/VIAL ONE (17:31)
[2022-10-16] MEDS ORDERED: FENTANYL CITR 100 MCG/2 ML ONE ×2 (17:31→19:56)
[2022-10-16] MEDS ORDERED: METRONIDAZOLE 500mg IVPB 500 MG/100 ML BAG IV ONE (17:32)
[2022-10-16] MEDS: NA CHLORIDE 0.9% 1,000 ML IV SCH (18:00)
[2022-10-16 18:28] LABS: SARS-CoV-2 Antigen Rapid Res Negative (Negative)
[2022-10-16] MEDS ORDERED: Ringers Lactate 1,000 ML IV ONE (19:36)
--- NOTE | 2022-10-16 19:53 | P.HP ---
Date of Service: 10/16/22 PC: This 32-year-old female presented to the emergency room with severe right lower quadrant abdominal pain for diagnosis and treatment. HPC: Patient states the pain actually began yesterday morning. Has intensified over the last 24 hours. Now causing severe discomfort. No bowel movements, no nausea or vomiting, but just does not feel well with it. PSHx: Negative PMHx: Patient had a stroke few years ago. Mostly affected her right side. Has very little residual. Social Hx: Allergic to gluten penicillins prednisone and promethazine Sys R: No cough, wheeze, shortness of breath. No chest pain or palpitations. She lives by herself, but has no problem taking care of her self. Currently on her period O/E: Awake alert vital signs are stable HEENT: Nonicteric Chest: Air entry equal bilaterally Abd: Tender with guarding in the right lower abdomen [place]: Intact Data: Normal white cell count, CT scan supports clinical diagnosis however of acute abdomen with peritoneal signs Impression: Acute abdomen probable appendicitis Plan: I will take to the operating room for laparoscopic possible open appendectomy. The risks of this procedure have been discussed. The possibility of bleeding, infection, injury to bowel blood vessels and surrounding structures was outlined. The possible need for an open and or further surgeries and procedures was discussed. She understands and wants us to proceed.
[2022-10-16] MEDS ORDERED: LIDOCAINE 2% MPF 5 ML VIAL ONE (19:55)
[2022-10-16] MEDS ORDERED: propofoL 200 MG/20 ML VIAL IV ONE (19:55)
[2022-10-16] MEDS ORDERED: ROCURONIUM 50 MG/5 ML VIAL IV ONE ×2 (19:56→20:40)
[2022-10-16] MEDS ORDERED: dexAMETHasone 10 MG/ML VIAL ONE (20:21)
[2022-10-16] MEDS ORDERED: GLYCOPYRROLATE 0.2 MG/ML SYR ONE (20:33)
[2022-10-16] MEDS ORDERED: NEOSTIGMINE 1 MG/ML -5 ML ONE (20:39)
--- NOTE | 2022-10-16 21:22 | P.OP ---
Preoperative diagnosis: Acute abdomen with appendicitis Postoperative diagnosis: The same Primary procedure: Laparoscopic appendectomy Anesthesia: General Estimated blood loss: Less than 15 cc Specimen: 1 appendix Operative Technique: The patient brought the operating room and placed supine on the table. After the induction of adequate general tracheal anesthesia, there the abdomen was prepped with a DuraPrep solution, she was draped in the usual aseptic manner. A subumbilical incision was made. This was brought down through the skin and subcutaneous tissue. The Visiport was used as the peritoneal cavity and created pneumoperitoneum at approximately 12 mmHg. Under direct vision a 5 mm trocar was placed in the lower midline, and another 5 in the right lateral side of the abdomen. We were now able to visualize intraperitoneal contents. The patient was placed in reverse Trendelenburg and rolled to the left. We did see an acutely inflamed appendix in the right lower quadrant. This was isolated and grasped at its body. I did heavily identify the junction of the cecum with the appendix with a small opening was made in the mesentery just at this point. After converting the 10 to a 12 trocar at the umbilicus the linear stapler was then introduced into the peritoneal cavity. It was a placed across the base of the appendix just at the junction at the appendix. The instrument was fired. The mesentery of the appendix was now taken down. It was noted to be quite edematous. After having compressed it we were able to place a linear stapler once again across the mesentery of the appendix and the instrument was fired. The appendix was now detached. The specimen was placed into an Endo Catch and brought out through the umbilical trocar site. The abdomen was now inspected to ensure adequate hemostasis. There was some bleeding but the patient is on Eliquis there was nothing active pumping seen she is a lot of bruising in the area. The umbilical trocar site having now been approximated with 2 sutures placed using the Endo Close the fascia was approximated and the sutures tied. The pneumoperitoneum was collapsed, the trochars removed, and baylee were applied to the skin. At the end of the procedure the patient was in a stable condition when sent to the recovery room. Needle sponge instrument count were correct. No drains were placed. Complications: None Transferred to: Recovery Room Condition: Good
[2022-10-16] MEDS: HYDROMORPHONE HCL 1 MG/ML INJ ONE ×6 (21:33→22:10)
[2022-10-16] MEDS ORDERED: ONDANSETRON 4 MG/2 ML VIAL IV PRN (22:43)
[2022-10-16 23:46] VITALS: BMI 43.8
[2022-10-17] MEDS: NA CHLORIDE 0.9% 1,000 ML IV SCH (00:08)
[2022-10-17] MEDS: PIPER TAZO 3.375 GM in NA CHLORIDE 0.9% 100 ML IV SCH ×2 (00:09→08:27)
[2022-10-17] MEDS: HYDROMORPHONE HCL 1 MG/ML INJ IV PRN ×2 (01:36→04:09)
[2022-10-17 04:22] VITALS: O2SAT 96
[2022-10-17 05:06] LABS: Magnesium 2.3 mg/dL (1.6-2.4); Phosphorus 2.3 mg/dL (2.5-4.9)
[2022-10-17] MEDS ORDERED: FENTANYL CITR 100 MCG/2 ML IV ONE (05:55)
[2022-10-17] MEDS ORDERED: POTASSIUM CL SA 10 MEQ TAB PO ONE (07:53)
[2022-10-17] MEDS: POTASS/SODIUM PHOSPHATE 1 PKT POWD.PACK PO SCH ×2 (08:00→08:58)
[2022-10-17 08:35] VITALS: BP 116/64; TEMP 97.2
[2022-10-17] MEDS ORDERED: HYDROCODONE/APAP 7.5/325 MG TAB PO ONE (09:00)
== END 2022-10-17 10:43 | disposition home or self-care (01) ==
LOC: ER 15:01 → ERHOLD 17:21 → INTOOBSV 17:21 → 2ND 21:06
PROVIDERS: ADMIT Hospitalist; ATTEND Hospitalist
PROC: 0DTJ4ZZ Resection of Appendix, Percutaneous Endoscopic Approach (ICD-10-PCS; principal; 2022-10-16 20:00)
DX: K35.80 Unspecified acute appendicitis (principal); R10.0 Acute abdomen; I48.91 Unspecified atrial fibrillation; F32.A Depression, unspecified; E78.5 Hyperlipidemia, unspecified; E03.9 Hypothyroidism, unspecified; E66.9 Obesity, unspecified; K21.9 Gastro-esophageal reflux disease without esophagitis; D63.1 Anemia in chronic kidney disease; Z86.73 Personal history of transient ischemic attack (TIA), and cerebral infarction without residual deficits; Z68.41 Body mass index [BMI] 40.0-44.9, adult; Z88.0 Allergy status to penicillin; Z88.8 Allergy status to other drugs, medicaments and biological substances; Z20.822 Contact with and (suspected) exposure to COVID-19
CPT/HCPCS: 96365; 96361; 96368; 85025; 36415; 83735; 81025; 84100; 88304; 81003; 83690; 80053; 74177; 94010; 96375; 99285; 96366; 87811; 44970; Q9967; J2704; J2543 ×2; J2001; J3010 ×3; J1100; J1170 ×5; J2710; J7120; J7030 ×2; J2405 ×2; G0378

== ENCOUNTER 2022-10-20 22:09 | Emergency (ER) | payer OTHER ==
--- OUTSIDE RECORDS SUMMARY | 2022-10-20 22:17 | XMS REPORT | Continuity of Care Document ---
:1990 Author Organization [facility] t Address [address] [place] [address] [address]. [address] [place] [address] Care Team Providers Name Role Phone Tri BARNES, Samantha Stringer Primary Care Physician DORIS PAUL Attending Clinician Unavailable Laura Colvin RN Attending Clinician Unavailable Doctor Unassigned, [place] Attending Clinician Unavailable Donny Noel MD Attending Clinician Rich Newton MD Attending Clinician ROSSY RUANO Attending Clinician Unavailable Rossy Ruano MD Attending Clinician [phone] Oscar PENALOZA Attending Clinician Unavailable Oscar Narvaez Attending Clinician MARYSOL GERARD Attending Clinician Unavailable Steve Abdi MD Attending Clinician Jass Mcnamara MD Attending Clinician Marysol Gerard MD Attending Clinician JONATAN KEMP Attending Clinician Unavailable FRANCESCO ADAM [...] Number Effective Date Expiration Date S desean [facility] EXCHANGE [id number] 2022 00:00:00 Problems Condition Condition Condition Status Onset Resolution Last Treating Co mments Source Name Details Category Date Date Treatment Clinician Date Chest pain Chest pain Disease Active 2021-11 M ethodi in adult in adult 2-02 [facility] 00:[facility]: Hospita 00 l Shortness Shortness Disease Active 2021-[address] [facility] breath of breath 1-14 Luke s 00:00: [address] Kidney Kidney Disease Active 2020-11 Univers stone stone 2-16 ity of 00:00: [place] 00 [facility] Branch Morbid Morbid Disease Active 2020-11 Univers obesity obesity 2-16 ity of 00:00: [place] 00 [facility] Branch Obstructiv Obstructiv Disease Active 2020-11 U nivers e sleep e sleep 2-16 ity of apnea apnea 00:00: [place] [facility] Branch Cerebrovas Cerebrovas Disease Active 2019- U nivers cular cular 1-05 ity of accident accident 00:00: [place] (CVA) (CVA) 00 Medical Branch Transient Transient Disease Active 2019- Uni vers ischemic ischemic 1-05 ity of attack attack 00:00: [place] 00 Medical Branch Hyperlipid Hyperlipid Disease Active 2020-0 U nivers emia emia 2-21 ity of 00:00: [place] 00 Medical Branch Benign Benign Disease Active 2017-11 Univers intracrani intracrani 0-23 it y of al al 00:00: [place] hypertensi hypertensi 00 Me dical on on Branch Hypothyroi Hypothyroi Disease Active 2016-11 U mohan dism dism 2-26 ity of 00:00: [place] [facility] Bipolar 1 Bipolar 1 Disease Active 2016-11 Uni vers disorder, disorder, 1-20 [place] [place] depressed depressed [place] Posttrauma Posttrauma Disease Active U mohan tic stress tic stress 3-17 it y of disorder disorder 00:00: [place] 00 Medical Branch Allergies, Adverse Reactions, Alerts [...] DRUG Active Hives 2021-11 Univers IN INGREDI 1- ity of 00:00: [place] 00 Medical Branch Penicill Propensi Active Hives 2021-11 Univer s in ty to 1- ity of adverse 00:00: [place] reaction 00 [...] DA Active [facility] ins 03-26 [place] 00:00: Health 00 are [place] prometha DA Active [facility] zine 03-26 [place] 00:00: Health 00 are [place] PREDNISO DRUG Active Palpitations Un eddie NE INGREDI 4-04 ity of 00:00: [place] 00 Medical Branch PROMETHA DRUG Active Other-Cmnt Univ ers ZINE INGREDI 4-04 ity of 00:00: [place] 00 Medical Branch Predniso Drug Active Palpitations Un eddie ne Allergy 4-04 ity of 00:00: [place] 00 Medical Branch Prometha Drug Active Other - See Restless U nivers zine Allergy comments 4-04 legs ity of 00:00: [place] 00 Medical Branch Social History Social Habit Start Date Stop Date Quantity Comments Source Exposure to 2022-09-19 2022-09-[address] [facility] SARS-CoV-2 00:00:00 [facility]:26:00 [facility] (event) Alcohol intake 2022-09-29 2022-09-29 Ex-drinker [facility] 00:[facility]00 [facility]00 [facility]finding[facility] Tobacco use and 2022-09-17 2022-09-[address] [facility] exposure 00:00:00 00:00:00 Medical Center History of 2020-09-[address] [facility] tobacco use 00:00:00 [facility] Sara mathias Sex Assigned At [address] [facility] 00:00:00 00:00:00 [facility] Center Smoking Status Start Date Stop Date Source Tobacco smoking [facility] consumption unknown Former smoker 2022-09-17 00:00:00 2022-09-[address] [facility] 00:[facility] Medications Ordered Filled Start Stop Current Ordering Indication Dosage Frequency Signature Comments Components Source Medication Medication Date Date Medication? Clinician (SIG) Name Name Dose 2021-11 No Unknown 2-13 00:00: 00 TAKE 2021-11 No TABLET BY 2-13 MOUTH EVERY 00:00: 24 HOURS 00 FOR 7 DAYS Dose 2021-11 No Unknown 2-13 00:00: 00 GABAPENTIN 2021-11 No 300 MG CAPS 2-13 00:00: 00 TAKE 1 2022-1 No TABLET BY 2-13 MOUTH TWICE 00:00: DAILY 00 TAKE ONE 2021-1 No (1) 2-13 TABLET(S) 00:00: BY MOUTH 00 TWICE A DAY. TAKE 1 2021-1 No TABLET BY 2-13 MOUTH NOW 00:00: 00 TAKE 1 2021-1 No TABLET BY 2-13 MOUTH EVERY 00:00: 6 HOURS 00 WITH FOOD OR MILK FOR 5 DAYS NEEDED TAKE ONE 2021-1 No CAPSULE BY 2-13 MOUTH EVERY 00:00: MORNING 00 TAKE 1 2021-1 No TABLET BY 2-13 MOUTH THREE 00:00: TIMES DAILY 00 NEEDED FOR ANXIETY Dose 2021-1 No Unknown 2-13 00:00: 00 TAKE 2 2021-1 No TABLETS BY 2-13 MOUTH FOUR 00:00: TIMES DAILY 00 NEEDED FOR HEADACHE TAKE ONE 2021-1 No (1) 2-13 CAPSULE(S) 00:00: BY MOUTH 00 EVERY MORNING AND TAKE TWO (2) CAPSULES EVERY NIGHT. TAKE ONE 2021- No (1) TABLET 2-13 BY MOUTH IN 00:00: THE 00 MORNING. TAKE ONE 2021- No (1) 2-13 TABLET(S) 00:00: BY MOUTH 00 ONCE A DAY IN THE MORNING. TAKE 2 2021-1 No TABLET BY 2-13 MOUTH IN 00:00: THE MORNING 00 AND 1 TABLET BY MOUTH AT DINNER TAKE ONE 2021-1 No (1) 2-13 TABLET(S) 00:00: BY MOUTH 00 TWICE A DAY. Dose 2021-1 No Unknown 2-13 00:00: 00 Dose 2021-1 No Unknown 2-13 00:00: 00 TAKE ONE 2021-1 No (1) 2-13 TABLET(S) 00:00: BY MOUTH IN 00 THE MORNING AND TWO (2) TABLETS AT BEDTIME. TAKE 1 2021- No TABLET BY 2-13 MOUTH EVERY 00:00: DAY 00 TAKE 1 TAB 2021-1 No Q12H X 5 2-13 DAYS 00:00: 00 AZITHROMYCI 2021- No N 250MG 2-13 TABLETS 00:00: 6-HANNAH 00 TAKE 1 2021-1 No TABLET BY 2-13 MOUTH TWICE 00:00: DAILY 00 Dose 2021-1 No Unknown 2-13 00:00: 00 FUROSEMIDE 2021-1 No 20 MG TABS 2-13 00:00: 00 TAKE 2021-11 No TABLET BY 2-13 MOUTH EVERY 00:00: NIGHT AT 00 BEDTIME FOR 10 DAYS NEEDED Dose 2021-11 No Unknown 2-13 00:00: 00 Dose 2021-11 No Unknown 2-13 00:00: 00 TAKE 2021-11 No CAPSULE BY 2-13 MOUTH EVERY 00:00: 6 HOURS 00 NEEDED Dose 2021-11 No Unknown 2-13 00:00: 00 TAKE 2021-11 No TABLET AT 2-13 BEDTIME. 00:00: 00 TAKE 2021-11 No TABLET BY 2-13 MOUTH DAILY 00:00: NEEDED 00 FOR MIGRAINE HEADACHE. MAY REPEAT DOSE AFTER 2 HOURS UP TO A. MAXIMUM OF 200 MG IN 24 HOURS Dose 2021-11 No Unknown 2-13 00:00: 00 FOLLOW 2021-11 No PACKAGE 2-13 DIRECTIONS 00:00: 00 TAKE 2021-11 No TABLET BY 2-13 MOUTH EVERY 00:00: NIGHT AT 00 BEDTIME TAKE 2021-11 No TABLET BY 2-13 MOUTH EVERY 00:00: 6 HOURS FOR 00 5 DAYS NEEDED FOR PAIN Dose 2021-11 No Unknown 2-13 00:00: 00 Dose 2021-11 No Unknown 2-13 00:00: 00 ATORVASTATI 2021-11 No N CALCIUM 2-13 20 MG TABS 00:00: 00 TAKE 2021-11 No TABLET BY 2-13 MOUTH EVERY 00:00: 6 HOURS 00 NEEDED MUSCLE SPASMS TAKE 2021-11 No TABLET BY 2-13 MOUTH THREE 00:00: TIMES DAILY 00 Dose 2021-11 No Unknown 2-13 00:00: 00 Dose 2021-11 No Unknown 2-13 00:00: 00 TAKE 2021-11 No TABLET BY 2-13 MOUTH THREE 00:00: TIMES DAILY 00 NEEDED Dose 2021-11 No Unknown 2-13 00:00: 00 Dose 2021-11 No Unknown 2-13 00:00: 00 Dose 2021-11 No Unknown 2-13 00:00: 00 Dose 2021-11 No Unknown 2-13 00:00: 00 TAKE 2021-11 No TABLET BY 2-13 MOUTH EVERY 00:00: 6 HOURS FOR 00 5 DAYS NEEDED TAKE 2021-11 No CAPSULE 3 2-13 TIMES 00:00: DAILY. 00 TAKE 2021-11 No TABLET BY 2-13 MOUTH EVERY 00:00: MORNING AND 00 2 TABLETS BY MOUTH EVERY NIGHT AT BEDTIME TAKE 2021-11 No TABLET BY 2-13 MOUTH TWICE 00:00: DAILY 00 TAKE ONE 2021-11 No (1) 2-13 TABLET(S) 00:00: BY MOUTH 00 THREE TIMES A DAY NEEDED FOR ANXIETY. TAKE 2021-11 No TABLET BY 2-13 MOUTH EVERY 00:00: MORNING 00 TAKE ONE 2021-11 No (1) CAPSULE 2-13 BY MOUTH 00:00: DAILY IN 00 THE MORNING WITH FOOD. BUDESONIDE/ 2021-11 No FORMOTEROL 2-13 FUMARATE 00:00: DIHY DRATE 00 160-4.5 MCG/ACT AERO MONTELUKAST 2021-11 No SODIUM 10 2-13 MG TABS 00:00: 00 TAKE 2021-11 No TABLET BY 2-13 MOUTH EVERY 00:00: DAY IN THE 00 MORNING ALBUTEROL 2021-11 No SULFATE 2-13 (2.5 00:00: MG/3ML) 00 0.083% NEBU INHALE 2 2021-11 No PUFFS BY 2-13 MOUTH FOUR 00:00: TIMES DAILY 00 TAKE 2 2021-11 No TABLETS AT 2-13 BEDTIME. 00:00: 00 TAKE 2021-11 No TABLET BY 2-13 MOUTH EVERY 00:00: 8 HOURS 00 NEEDED TAKE 2021-11 No CAPSULE BY 2-13 MOUTH DAILY 00:00: FOR 7 DAYS 00 acetaZOLAMI 2021-11 Yes 1000mg QD Take 2 [...] l tablet daily. gabapentin 2021-11 Yes 300mg Q.[id number] Take 1 [facility] (NEURONTIN) 2-[id number] 300 mg 17:25: 3D (300 [...] l tablet daily. gabapentin 2021-11 Yes 300mg Q.[id number] Take 1 [facility] (NEURONTIN) 2-[id number] 300 mg 17:25: 3D (300 [...] l tablet daily. gabapentin 2021-11 Yes 300mg Q.[id number] Take 1 [facility] (NEURONTIN) 2-[id number] 300 mg 17:25: 3D (300 mg Hospita capsule 07 total) by l mouth 3 (three) times a day. acetaZOLAMI 2021-11- No 500mg QD Take 1 Me thodi [...] QD Take 1 Me thodi [facility] (DIAMOX) 2- 12-[address] 500 mg 17:25: 00:00 (500 mg Hospita capsule 07 :00 total) by l mouth daily. methylpredn 2021-11 No 125mg 125 mg, U nivers isolone sod 11-25 Slow IV ity of succ 03:15: 02:40 [place], [place] (SOLU-MEDRO 00 :00 ONCE, 1 Medic al L) dose, On Branch injection Mon 125 mg 09/24/22 at 2115, SCAR predniSONE 2021-11- Yes [id number] 10mg Take 1 U nivers 10 mg 11-24 tablet by ity of tablet 00:00: 05:59 mouth in [place] 00 :00 the Medical morning Branch and 1 tablet in the evening. Do all this for 4 days. QUEtiapine 2021-11 Yes 200mg QD Take [address] (SEROquel) 1-17 [facility] 200 MG 17:05: mouth Medical tablet 04 nightly. [place] FLUoxetine 2021-11 Yes 40mg QD Take [address] (PROzac) 40 1-17 by mouth Luke s MG capsule 17:05: daily. Medic al 04 [place] levothyroxi 2021-11 Yes 50ug Take 50 [facility] [...] MG 17:05: mouth Medical tablet 04 nightly. [place] FLUoxetine 2021-11 Yes 40mg QD Take [address] (PROzac) 40 1-17 by mouth Luke s MG capsule 17:05: daily. Medic al 04 [place] levothyroxi 2021-11 Yes 50ug Take 50 CHI [...] MG 17:05: mouth Medical tablet 04 nightly. [place] FLUoxetine 2021-11 Yes 40mg QD Take [address] (PROzac) 40 1-17 by mouth Luke s MG capsule 17:05: daily. Medic al 04 [place] levothyroxi 2021-11 Yes 50ug Take 50 CHI [...] MG 17:05: mouth Medical tablet 04 nightly. [place] FLUoxetine 2021-11 Yes 40mg QD Take 40 [...] MG 17:05: mouth Medical tablet 04 nightly. [place] FLUoxetine 2021-11 Yes 40mg QD Take [address] (PROzac) 40 1-17 by mouth Luke s MG capsule 17:05: daily. Medic al 04 [place] levothyroxi 2021-11 Yes 50ug Take 50 CHI [...] MG 17:05: mouth Medical tablet 04 nightly. [place] FLUoxetine 2021-11 Yes 40mg QD Take [address] (PROzac) 40 1-17 by mouth Luke s MG capsule 17:05: daily. Medic al 04 [place] levothyroxi 2021-11 Yes 50ug Take [address] ne 1-17 mcg by Lukes (SYNTHROID, 17:05: mouth Medic al LEVOTHROID) 04 Every Center 50 MCG morning on tablet an empty stomach. pantoprazol 2021-11 Yes 40mg QD Take [address] [facility] [facility] -17 by mouth [facility] (PROTONIX) 17:05: daily. Medic al 40 MG 04 [place] tablet atorvastati 2021-11- No 10mg QD Take [address] n (LIPITOR) 11-20-16 by mouth Sudhakar es 10 MG 17:05: 00:00 daily. Medical tablet 04 :00 [place] lamoTRIgine 2021-11- No 50mg QD Take [address] (LaMICtal) 11-20-16 by mouth Luke s 25 MG 17:05: 00:00 daily. Medical tablet 04 :00 [place] gabapentin 2021-11- No 300mg Q.[id number] Take [address] (NEURONTIN) 11-20- [id number] mg [facility] 300 MG 17:05: 00:00 3D mouth 3 Medical capsule 04 :00 (three) Center times daily. apixaban 2021-11 No 5mg QD Take [address] [facility] (Eliquis) 5 11-20-16 by mouth Sudhakar es mg Tab 17:05: 00:00 daily. Medical tablet 04 :00 [place] atorvastati 2021-11 No 10mg QD Take [address] [facility] [facility] n (LIPITOR) 11-20-16 by mouth Sudhakar es 10 MG 17:05: 00:00 daily. Medical tablet 04 :00 [place] lamoTRIgine 2021-11 No 50mg QD Take [address] [facility] (LaMICtal) 11-20-16 by mouth Luke s 25 MG 17:05: 00:00 daily. Medical tablet 04 :00 [place] gabapentin 2021-11- No 300mg Q.[id number] Take [address] (NEURONTIN) 11-20-16 [id number] mg [facility] 300 MG 17:05: 00:00 3D mouth 3 Medical capsule 04 :00 (three) Center times daily. apixaban 2021-11 No 5mg QD Take [address] [facility] (Eliquis) 5 -20 09-16 by mouth Sudhakar es mg Tab 17:05: 00:00 daily. Medical tablet 04 :00 [place] atorvastati 2021-11- No 10mg QD Take [address] [facility] n (LIPITOR) 17 -16 by mouth Sudhakar es 10 MG 17:05: 00:00 daily. Medical tablet 04 :00 [place] lamoTRIgine 2021-11- No 50mg QD Take [address] [facility] (LaMICtal) 17 11-16 by mouth Luke s 25 MG 17:05: 00:00 daily. Medical tablet 04 :00 [place] gabapentin 2021-11- No 300mg Q.[id number] Take [address] (NEURONTIN) -17 -16 [id number] mg by [facility] 300 MG 17:05: 00:00 3D mouth 3 Medical capsule 04 :00 (three) Center times daily. apixaban 2021-11- No 5mg QD Take [address] [facility] [address] (Eliquis) 5 -20 09-16 by mouth Sudhakar es mg Tab 17:05: 00:00 daily. Medical tablet 04 :00 [place] atorvastati 2021-11- No 10mg QD Take [address] [facility] n (LIPITOR) 11-20-16 by mouth Sudhakar es 10 MG 17:05: 00:00 daily. Medical tablet 04 :00 [place] lamoTRIgine 2021-11 No 50mg QD Take [address] [facility] (LaMICtal) 11-20-16 by mouth Luke s 25 MG 17:05: 00:00 daily. Medical tablet 04 :00 [place] gabapentin 2021-11- No 300mg Q.[id number] Take [address] (NEURONTIN) -20 09-16 [id number] mg [facility] 300 MG 17:05: 00:00 3D mouth 3 Medical capsule 04 :00 (three) Center times daily. apixaban 2021-11- No 5mg QD Take [address] [facility] [address] (Eliquis) 5 -20 09-16 by mouth Sudhakar es mg Tab 17:05: 00:00 daily. Medical tablet 04 :00 [place] atorvastati 2021-11- No 10mg QD Take [address] [facility] n (LIPITOR) -17 -16 by mouth Sudhakar es 10 MG 17:05: 00:00 daily. Medical tablet 04 :00 [place] lamoTRIgine 2021-11- No 50mg QD Take [address] (LaMICtal) 11-20-16 by mouth Luke s 25 MG 17:05: 00:00 daily. Medical tablet 04 :00 [place] gabapentin 2021-11- No 300mg Q.[id number] Take [address] (NEURONTIN) 17 - [id number] mg [facility] 300 MG 17:05: 00:00 3D mouth 3 Medical capsule 04 :00 (three) Center times daily. apixaban 2021-11- No 5mg QD Take [address] [facility] [address] (Eliquis) 5 11-20-16 by mouth Sudhakar es mg Tab 17:05: 00:00 daily. Medical tablet 04 :00 [place] lamoTRIgine 2021-11- No 50mg QD Take [address] (LaMICtal) 11-20 by mouth Luke s 25 MG 17:05: 00:00 daily. Medical tablet 04 :00 [place] gabapentin 2021-11- No 300mg Q.[id number] Take [address] (NEURONTIN) 11-20 [id number] mg [facility] 300 MG 17:05: 00:00 3D mouth 3 Medical capsule 04 :00 (three) Center times daily. apixaban 2021-11 No 5mg QD Take [address] [facility] [address] (Eliquis) 5 11-20- by mouth Sudhakar es mg Tab 17:05: 00:00 daily. Medical tablet 04 :00 [place] atorvastati 2021-11- No 10mg QD Take [address] [facility] (LIPITOR) 11-20 by mouth Sudhakar es 10 MG 17:05: 00:00 daily. Medical tablet 04 :00 [place] atorvastati 2021-11- Yes 20mg QD Take [address] [facility] (LIPITOR) 11-19- tablet (20 L ukes 20 MG 00:00: 23:59 mg total) Medica l tablet 00 :00 by mouth Center nightly. gabapentin 2021-11- Yes 300mg QD Take [address] [facility] (NEURONTIN) 11-19- capsule Luke s 300 MG 00:00: 23:59 [...] times daily for 30 days. apixaban 2021-11- No 5mg Q.5D Take [address] [facility] [address] (Eliquis) 5 11-1916 tablet (5 Nathalie kes mg Tab 00:00: 23:59 mg total) Medic al tablet 00 :00 by mouth 2 Center (two) times daily for 30 days. furosemide 2021-11- Yes 20mg QD Take [address] [facility] [address] (LASIX) 20 1-16 11-21 tablet (20 Nathalie kes MG tablet 00:00: 23:59 mg total) Me dical 00 :00 by mouth Center daily for 5 days. furosemide 2021-11- Yes 20mg QD Take [address] [facility] [address] (LASIX) 20 1-16 11-21 tablet (20 Nathalie kes MG tablet 00:00: 23:59 mg total) Me dical 00 :00 by mouth Center daily for 5 days. furosemide 2021-11- No 20mg QD Take [address] [facility] [address] (LASIX) 20 1-16 11-21 tablet (20 Nathalie kes MG tablet 00:00: 23:59 mg total) Me dical 00 :00 by mouth Center daily for 5 days. furosemide 2021-11- No 20mg QD Take [address] [facility] [address] (LASIX) 20 1-16 11-21 tablet (20 Nathalie kes MG tablet 00:00: 23:59 mg total) Me dical 00 :00 by mouth Center daily for 5 days. furosemide 2021-11- No 20mg QD Take [address] [facility] [address] (LASIX) 20 1-16 11-21 tablet (20 Nathalie kes MG tablet 00:00: 23:59 mg total) Me dical 00 :00 by mouth Center daily for 5 days. furosemide 2021-11- No 20mg QD Take [address] [facility] [address] (LASIX) 20 1-16 11-21 tablet (20 Nathalie kes MG tablet [...] TIMES 00:00: DAILY UNTIL 00 GONE TAKE 2021-1 No TABLET BY 0-14 MOUTH EVERY 00:00: DAY 00 atorvastati 2021-0 2021- No 20mg Take 20 mg Univers n 20 mg 8-17 08-17 by mouth. ity of tablet 12:00: 00:00 [place] 31 :00 Medical Branch levothyroxi 2021-0 2021- No .05ug Take 0.05 Univers ne 50 mcg 8-17 08-17 mcg by ity of tablet 12:00: 00:00 mouth [place] 31 :00 every Medical morning. Branch QUEtiapine Yes [id number] TAKE ONE Univers 50 mg 8-17 (1) ity of tablet 00:00: TABLET(S) [place] 00 BY MOUTH Medical IN THE Branch MORNING AND 2 TABLETS AT BEDTIME. divalproex Yes [id number] 250mg Take 1 Univers 250 mg EC 8-17 tablet by ity o f tablet 00:00: mouth in [place] 00 the Medical morning Branch and 1 tablet in the evening. levothyroxi 0 Yes [id number] 50ug Take 1 Univers ne 50 mcg 8-17 tablet by ity o f tablet 00:00: mouth [place] 00 every Medical morning. Branch hydrOXYzine 0 Yes [id number] 50mg Take 1 Univers 50 mg 8-17 tablet by ity of tablet 00:00: mouth 3 [place] 00 (three) Medical times [place] daily as needed for Anxiety. atorvastati 0 Yes [id number] 20mg Take 1 Univers n 20 mg 8-17 tablet by ity of tablet 00:00: mouth at [place] [address] bedtime. Medical Branch pantoprazol 2021-0 Yes [id number] 40mg Take 1 Univers e 40 mg EC 8-17 tablet by ity of tablet 00:00: mouth in [place] 00 the Medical morning. Branch FLUoxetine 2021-0 Yes [id number] TAKE 1 U nivers 40 mg 8-17 CAPSULE BY ity of capsule 00:00: MOUTH [place] 00 DAILY IN Medical THE Branch MORNING WITH FOOD gabapentin 2021-0 Yes [id number] 300mg Take 1 Univers 300 mg 8-17 [id number] capsule by ity o f capsule 00:00: mouth at [place] [address] bedtime. Medical Branch QUEtiapine 2021-0 Yes [id number] TAKE ONE Univers 50 mg 8-17 (1) ity of tablet 00:00: TABLET(S) [place] 00 BY MOUTH Medical IN THE Branch MORNING AND 2 TABLETS AT BEDTIME. divalproex 2021-0 Yes [id number] 250mg Take 1 Univers 250 mg EC 8-17 tablet by ity o f tablet 00:00: mouth in [place] 00 the Medical morning Branch and 1 tablet in the evening. levothyroxi 2021-0 Yes [id number] 50ug Take 1 Univers ne 50 mcg 8-17 tablet by ity o f tablet 00:00: mouth [place] 00 every Medical morning. Branch hydrOXYzine 2021-0 Yes [id number] 50mg Take 1 Univers 50 mg 8-17 tablet by ity of tablet 00:00: mouth 3 [place] 00 (three) Medical times [place] daily as needed for Anxiety. atorvastati 2021-0 Yes [id number] 20mg Take 1 Univers n 20 mg 8-17 tablet by ity of tablet 00:00: mouth at [place] [address] bedtime. Medical Branch pantoprazol 2021-0 Yes [id number] 40mg Take 1 Univers e 40 mg EC 8-17 tablet by ity of tablet 00:00: mouth in [place] 00 the Medical morning. Branch FLUoxetine 2021-0 Yes [id number] TAKE 1 U nivers 40 mg 8-17 CAPSULE BY ity of capsule 00:00: MOUTH [place] 00 DAILY IN Medical THE Branch MORNING WITH FOOD gabapentin 2021-0 Yes [id number] 300mg Take 1 Univers 300 mg 8-17 [id number] capsule by ity o f capsule 00:00: mouth at [place] [address] bedtime. Medical Branch QUEtiapine 2021-0 Yes [id number] TAKE ONE Univers 50 mg 8-17 (1) ity of tablet 00:00: TABLET(S) [place] 00 BY MOUTH Medical IN THE [place] MORNING AND 2 TABLETS AT BEDTIME. divalproex 2021-0 Yes [id number] 250mg Take 1 Univers 250 mg EC 8-17 tablet by ity o f tablet 00:00: mouth in [place] 00 the Medical morning Branch and 1 tablet in the evening. levothyroxi 2021-0 Yes [id number] 50ug Take 1 Univers ne 50 mcg 8-17 tablet by ity o f tablet 00:00: mouth [place] 00 every Medical morning. Branch hydrOXYzine 2021-0 Yes [id number] 50mg Take 1 Univers 50 mg 8-17 tablet by ity of tablet 00:00: mouth 3 00 (three) Medical times [place] daily as needed for Anxiety. atorvastati 2021-0 Yes [id number] 20mg Take 1 Univers n 20 mg 8-17 tablet by ity of tablet 00:00: mouth at [place] 00 bedtime. Medical Branch pantoprazol 2021-0 Yes [id number] 40mg Take 1 Univers e 40 mg EC 8-17 tablet by ity of tablet 00:00: mouth in [place] 00 the Medical morning. Branch FLUoxetine 2021-0 Yes [id number] TAKE 1 U nivers 40 mg 8-17 CAPSULE BY ity of capsule 00:00: MOUTH 00 DAILY IN Medical THE [place] MORNING WITH FOOD gabapentin 0 Yes [id number] 300mg Take 1 Univers 300 mg 8-17 [id number] capsule by ity o f capsule 00:00: mouth at [place] [address] bedtime. Medical Branch QUEtiapine 2021-0 Yes [id number] TAKE ONE Univers 50 mg 8-17 (1) ity of tablet 00:00: TABLET(S) 00 BY MOUTH Medical IN THE Branch MORNING AND 2 TABLETS AT BEDTIME. divalproex 2021-0 Yes [id number] 250mg Take 1 Univers 250 mg EC 8-17 tablet by ity o f tablet 00:00: mouth in [place] the Medical morning Branch and 1 tablet in the evening. levothyroxi 2021-0 Yes [id number] 50ug Take 1 Univers ne 50 mcg 8-17 tablet by ity o f tablet 00:00: mouth [place] 00 every Medical morning. Branch hydrOXYzine 2021-0 Yes [id number] 50mg Take 1 Univers 50 mg 8-17 tablet by ity of tablet 00:00: mouth 3 [place] 00 (three) Medical times [place] daily as needed for Anxiety. atorvastati 2021-0 Yes [id number] 20mg Take 1 Univers n 20 mg 8-17 tablet by ity of tablet 00:00: mouth at [place] [address] bedtime. Medical Branch pantoprazol 2021-0 Yes [id number] 40mg Take 1 Univers e 40 mg EC 8-17 tablet by ity of tablet 00:00: mouth in [place] 00 the Medical morning. Branch FLUoxetine 2021-0 Yes [id number] TAKE 1 U nivers 40 mg 8-17 CAPSULE BY ity of capsule 00:00: MOUTH [place] 00 DAILY IN Medical THE [place] MORNING WITH FOOD gabapentin Yes [id number] 300mg Take 1 Univers 300 mg 8 [id number] capsule by ity o f capsule 00:00: mouth at [place] 00 bedtime. Medical Branch QUEtiapine 2021- TAKE ONE Un eddie 50 mg 05-21 (1) ity of tablet 00:00: 00:00 TABLET(S) [place] 00 :00 BY MOUTH Medical IN THE Branch MORNING AND 2 TABLETS AT BEDTIME. FLUoxetine 2021- No TAKE 1 Univ ers 40 mg 04-17 CAPSULE BY ity of capsule 00:00: 00:00 MOUTH [place] 00 :00 DAILY IN Medical THE Branch MORNING WITH FOOD hydrOXYzine 50mg Take 50 mg Univers 50 mg 04-17 by mouth 3 ity of tablet 00:00: 00:00 (three) [place] 00 :00 times Medical daily as Branch needed. divalproex 250mg Take 250 U nivers 250 mg EC 04-17 mg by ity of tablet 00:00: 00:00 mouth in [place] 00 :00 the Medical morning Branch and 250 mg in the evening. pantoprazol 2020-11 40mg Take 40 mg Univers e 40 mg EC 12-14 by mouth. ity of tablet 00:00: 00:00 [place] 00 :00 [facility] Branch Vital Signs Vital Name Observation Time Observation Value Comments Source HEIGHT 2022-09-29 01:29:00 170.2 cm WEIGHT 2022-09-29 01:29:00 127.007 kg HEIGHT 2022-09-29 01:29:00 170.2 cm WEIGHT 2022-09-29 01:29:00 127.007 kg HEIGHT 2022-09-29 01:29:00 170.2 cm WEIGHT 2022-09-29 01:29:00 127.007 kg Systolic blood 2022-09-25 03:34:00 140 mm[Hg] Univer sity of pressure [facility] Diastolic blood 2022-09-25 03:34:00 83 mm[Hg] Unive rsity of pressure [facility] Heart rate 2022-09-25 03:34:00 90 [facility] Oxygen saturation in 2022-09-25 03:34:00 98 /min University Arterial blood by [facility] Pulse oximetry Branch Respiratory rate 2022-09-25 02:08:00 18 /min [facility] Body temperature 2022-09-25 00:13:00 36 [facility] 2022-09-25 00:13:00 170.2 cm Universi ty of [facility] Body weight 2022-09-25 00:13:00 129.275 kg Universi ty of [facility] BMI 2022-09-25 00:13:00 44.64 kg/m2 Universi ty of [facility] HEIGHT 2022-09-17 13:50:00 170.2 cm WEIGHT 2022-09-17 13:50:00 127.007 kg HEIGHT 2022-09-17 13:50:00 170.2 cm WEIGHT 2022-09-17 13:50:00 127.007 kg HEIGHT 2022-09-17 13:50:00 170.2 cm WEIGHT 2022-09-17 13:50:00 127.007 kg Systolic blood 2022-06-20 16:27:00 132 mm[Hg] Univer sity of pressure [facility] Diastolic blood 2022-06-20 16:27:00 68 mm[Hg] Unive rsity of pressure [facility] Heart rate 2022-06-20 16:27:00 76 /min Universi ty [facility] Body temperature 2022-06-20 16:27:00 36.28 Sultana [facility] Respiratory rate 2022-06-20 16:27:00 18 /min [facility] Body weight 2022-06-20 16:27:00 120.203 kg Universi ty [facility] BMI 2022-06-20 16:27:00 41.50 kg/m2 Universi ty [facility] BP Systolic 2022-10-16 14:32:00 121 mm[Hg] BP Diastolic 2022-10-16 14:32:00 81 mm[Hg] Weight Measured 2022-10-16 14:32:00 285.40 pounds Height Measured 2022-10-16 14:32:00 67.00 inches Body Temperature 2022-10-16 14:32:00 97.90 degrees Heart Rate 2022-10-16 14:32:00 93.00 /min Respiratory Rate 2022-10-16 14:32:00 17.00 /min Body temperature 2022-10-07 22:24:13 36.06 Sultana [facility] Respiratory rate 2022-10-07 22:24:13 17 /min [facility] Systolic blood 2022-10-07 21:50:23 121 mm[Hg] Method [facility] pressure Diastolic blood 2022-10-07 21:50:23 77 mm[Hg] [facility] pressure Heart rate 2022-10-07 21:50:23 86 /min [facility] Oxygen saturation in 2022-10-07 21:50:23 96 /min [facility] Arterial blood by Pulse oximetry Body height 2022-10-05 21:38:00 170.2 cm [facility] Body weight 2022-10-05 21:38:00 127.007 kg [facility] BMI 2022-10-05 21:38:00 43.85 kg/m2 [facility] Systolic blood 2022-09-29 06:56:00 110 mm[Hg] [facility] Diastolic blood 2022-09-29 06:56:00 82 mm[Hg] [facility] Heart rate 2022-09-29 06:56:00 99 /min [facility] Body temperature 2022-09-29 06:56:00 36.67 Sultana [facility] Respiratory rate 2022-09-29 06:56:00 17 /min [facility] Oxygen saturation in 2022-09-29 06:56:00 97 /min [facility] Arterial blood by Medical nter Pulse oximetry Body height 2022-09-29 01:29:00 170.2 cm [facility] Body weight 2022-09-29 01:29:00 127.007 kg [facility] BMI 2022-09-29 01:29:00 43.85 kg/m2 [facility] BP Systolic 2022-09-24 17:07:00 125 mm[Hg] BP Diastolic 2022-09-24 17:07:00 85 mm[Hg] Weight Measured 2022-09-24 17:07:00 287.40 pounds Height Measured 2022-09-24 17:07:00 67.00 inches Body Temperature 2022-09-24 17:07:00 97.60 degrees Heart Rate 2022-09-24 17:07:00 107.00 /min Respiratory Rate 2022-09-24 17:07:00 Heart rate 2022-09-19 09:41:00 89 /min [facility] Systolic blood 2022-09-19 07:56:00 109 mm[Hg] [facility] Diastolic blood 2022-09-19 07:56:00 69 mm[Hg] [facility] Body temperature 2022-09-19 07:56:00 36.78 Sultana [facility] Respiratory rate 2022-09-19 07:56:00 18 /min [facility] Oxygen saturation in 2022-09-19 07:56:00 94 /min [facility] Arterial blood by Medical Ce nter Pulse oximetry Body height 2022-09-18 14:12:00 170.2 cm [facility] Body weight 2022-09-17 13:50:00 127.007 kg [facility] BMI 2022-09-17 13:50:00 43.85 kg/m2 [facility] BP Systolic 2022-09-06 15:38:00 126 mm[Hg] BP [...] REFERRAL- REQUEST/RESPONSE 2022-10-08 06:01:00 Doctor Unassigned , [facility] URINE CULTURE 2022-10-07 00:24:00 [facility] spital VITAMIN B12 LEVEL 2022-10-07 00:24:00 [facility] VITAMIN D 25 HYDROXY LEVEL 2022-10-07 00:24:00 [facility] ANTINUCLEAR ANTIBODIES (JOSE CARLOS) 2022-10-07 00:24:00 [facility] WITH REFLEX TO TITER AND PATTERN, IMMUNOFLUORESCENCE URINE DRUGS OF ABUSE SCREEN 2022-10-07 00:24:00 [facility] URINALYSIS SCREEN AND 2022-10-07 00:24:00 [facility] MICROSCOPY, WITH REFLEX TO CULTURE HIV 1/2 ANTIGEN/ANTIBODY, 2022-10-07 00:24:00 [facility] FOURTH GENERATION, WITH REFLEXES SYPHILIS TREPONEMA SCREEN 2022-10-07 00:24:00 [facility] WITH RPR CONFIRMATION (REVERSE ALGORITHM) SEDIMENTATION RATE 2022-10-07 00:24:00 [facility] C-REACTIVE PROTEIN 2022-10-07 00:24:00 [facility] FOLATE LEVEL 2022-10-07 00:24:00 [facility] spital EEG AWAKE/ASLEEP LESS THAN 2022-10-06 21:46:42 [facility] [address] HEAD WO CONTRAST 2022-10-06 19:55:34 [facility] TTE COMPLETE, W CONTRAST, W 2022-10-06 14:45:00 [facility] DOPPLER ([id number]) CBC WITH PLATELET AND 2022-10-06 09:37:00 Fan, [facility] DIFFERENTIAL PROTHROMBIN TIME WITH INR 2022-10-06 09:37:00 [facility], [facility] PARTIAL THROMBOPLASTIN TIME 2022-10-06 09:37:00 [facility], [facility] (PTT) CREATINE KINASE, TOTAL (CPK) 2022-10-06 09:37:00 [facility], [facility] B NATRIURETIC PEPTIDE 2022-10-06 09:37:00 [facility], [facility] COMPREHENSIVE METABOLIC 2022-10-06 09:37:00 Fan, [facility] PANEL LIPID PANEL 2022-10-06 09:37:00 Fan, [facility] spital MAGNESIUM LEVEL 2022-10-06 09:37:00 Fan, [facility] spital PHOSPHORUS LEVEL 2022-10-06 09:37:00 Fan, [facility] PREALBUMIN LEVEL 2022-10-06 09:37:00 Fan, [facility] THYROID STIMULATING HORMONE 2022-10-06 09:37:00 Fan, [facility] T4, FREE 2022-10-06 09:37:00 Fan, [facility] spital URIC ACID LEVEL 2022-10-06 09:37:00 Fan, [facility] spital BILIRUBIN DIRECT 2022-10-06 09:37:00 Fan, [facility] ESTIMATED GFR 2022-10-06 09:37:00 Fan, [facility] spital LACTIC ACID LEVEL, SEPSIS - 2022-10-06 06:50:00 [facility] NOW AND REPEAT 2X EVERY 3 HOURS TROPONIN T 2022-10-06 06:50:[address] [facility] [address] ANGIOGRAM PE CHEST 2022-10-06 03:13:00 [facility] COVID-19 QUALITATIVE RT-PCR 2022-10-06 02:23:00 [facility] BLOOD CULTURE, AEROBIC & 2022-10-06 02:22:00 [facility] ANAEROBIC TROPONIN T 2022-10-06 00:40:00 Kimani Benítez [facility] LACTIC ACID LEVEL, SEPSIS - 2022-10-06 00:40:00 [facility] NOW AND REPEAT 2X EVERY 3 HOURS US DUPLEX VENOUS UPPER 2022-10-06 00:00:00 Vincent Ireland [facility] EXTREMITY BILATERAL CBC WITH PLATELET AND 2022-10-05 21:59:00 Kimani Benítez [facility] DIFFERENTIAL COMPREHENSIVE METABOLIC 2022-10-05 21:59:00 Kimani Benítez [facility] PANEL TROPONIN T 2022-10-05 21:59:00 Benítez, [facility] B NATRIURETIC PEPTIDE 2022-10-05 21:59:00 Benítez, Kimani Fermin [facility] HCG QUALITATIVE, SERUM 2022-10-05 21:59:00 [facility] Kimani Fermin [facility] SCREEN ESTIMATED GFR 2022-10-05 21:59:00 [facility] ECG 12-LEAD 2022-10-05 21:40:19 Jackelin [facility] ED ECG INTERPRETATION 2022-09-29 21:47:14 [facility] CBC W/PLT COUNT & AUTO 2022-09-29 03:42:00 [facility] S [facility] DIFFERENTIAL [facility] CBC W/PLT COUNT & AUTO 2022-09-29 03:42:[address] [facility] (CELLAVISION MANUAL DIFF) 2022-09-29 03:42:00 SorensonToi, CH I [facility] BASIC METABOLIC PANEL 2022-09-29 03:41:00 [facility] MAGNESIUM 2022-09-29 03:41:00 [facility] HCG, QUANTITATIVE, 2022-09-29 03:41:00 [facility] ECG 12-LEAD 2022-09-29 01:36:03 [facility] ECG 12-LEAD 2022-09-29 01:36:03 Unknown, Hl7 Doctor [facility] ECG 12-LEAD 2022-09-29 01:36:03 Unknown, Hl7 Doctor [facility] EKG-SCANNED 2022-09-29 00:00:00 Provider, Lanette [facility] St Zelayak es Scanning [facility] EBV-MONONUCLEOSIS SCREEN 2022-09-25 02:37:[address] [facility] POCT TEST 2022-09-25 02:37:00 Oscar Penaloza [facility] URINE DRUG (IMMUNOASSAY) - 2022-09-25 01:47:00 Oscar Penaloza [facility] COMPREHENSIVE DRUG SCREEN [facility] XR CHEST 1 VW 2022-09-25 00:46:04 Oscar Penaloza [facility] MAGNESIUM 2022-09-25 00:38:00 Oscar Penaloza Krystina [facility] TROPONIN I 2022-09-25 00:38:00 Oscar Penaloza [facility] COMP. METABOLIC PANEL 2022-09-25 00:38:00 Oscar Penaloza [facility] ([id number]) [facility] CBC WITH DIFF 2022-09-25 00:38:00 Oscar Penaloza [facility] D-DIMER 2022-09-25 00:38:00 Oscar Penaloza [facility] URINALYSIS 2022-09-25 00:38:00 Oscar Penaloza [facility] N-TERMINAL PRO-BNP 2022-09-25 00:38:00 Oscar Penaloza [facility] CONSENT/REFUSAL FOR 2022-09-25 00:00:04 Doctor Unassigned, [facility] DIAGNOSIS AND TREATMENT [facility] 2D ECHO W/ DOPPLER 2022-09-19 09:42:56 Sathya Rick [facility] (CW/PW/COLOR) [facility] BASIC METABOLIC PANEL 2022-09-19 04:07:00 Ivonne Benitez [facility] MAGNESIUM 2022-09-19 04:07:00 Ivonne Benitez [facility] CBC W/PLT COUNT & AUTO 2022-09-19 04:07:00 Ivonne Benitez [facility] DIFFERENTIAL [facility] CBC W/PLT COUNT & AUTO 2022-09-19 04:07:00 [facility] MR BRAIN WITHOUT IV CONTRAST 2022-09-18 18:52:00 Marysol Gerard Sy ed [facility] MRA NECK WITHOUT IV CONTRAST 2022-09-18 18:51:00 Moustapha [facility] ed [facility] MRA HEAD WITHOUT IV CONTRAST 2022-09-18 18:50:00 Moustapha [facility] SCREEN, URINE 2022-09-18 17:28:00 Marysol Gerarded CH I [facility] BASIC METABOLIC PANEL 2022-09-18 05:38:00 Ivonne Benitez [facility] MAGNESIUM 2022-09-18 05:38:00 Emmanuel [facility] CBC W/PLT COUNT & AUTO 2022-09-18 05:38:00 Ivonne Benitez [facility] S t [facility] DIFFERENTIAL [facility] HIGH SENSITIVITY TROPONIN I 2022-09-18 05:38:00 [facility] TSH/FREE T4 IF INDICATED 2022-09-18 05:38:00 Ivonne Benitez [facility] CBC W/PLT COUNT & AUTO 2022-09-18 05:38:00 Ivonne Benitez [facility] DIFFERENTIAL [facility] ECG 12-LEAD 2022-09-18 04:54:18 Emmanuel [facility] ECG 12-LEAD 2022-09-18 04:54:18 Unknown, Hl7 [facility] ECG 12-LEAD 2022-09-18 04:54:18 Unknown, Hl7 [facility] URINALYSIS W/ MICROSCOPIC 2022-09-18 02:30:00 Emmanuel Ivonne HA I [facility] ECG 12-LEAD 2022-09-17 22:28:54 Unknown, Hl7 [facility] HIGH SENSITIVITY TROPONIN I 2022-09-17 21:19:00 Severe, [facility] CTA CHEST,ABDOMEN & PELVIS - 2022-09-17 21:03:00 Severe, [facility] FOR DISSECTION [facility] HCG, QUANTITATIVE, 2022-09-17 18:05:00 Severe, [facility] d [facility] URINALYSIS W/ MICROSCOPIC 2022-09-17 16:03:00 Severe, [facility] SARS-COV2/RT-PCR ([facility] & REF 2022-09-17 16:02:00 Severe, [facility] LABS) Medical Center CBC W/PLT COUNT & AUTO 2022-09-17 16:02:00 Severe, [facility] DIFFERENTIAL [facility] COMPREHENSIVE METABOLIC 2022-09-17 16:02:00 Severe, [facility] B-TYPE NATRIURETIC FACTOR 2022-09-17 16:02:00 Severe, [facility] (BNP) [facility] LACTIC ACID, VENOUS 2022-09-17 16:02:00 Severe, [facility] HIGH SENSITIVITY TROPONIN I 2022-09-17 16:02:00 Severe, [facility] CBC W/PLT COUNT & AUTO 2022-09-17 16:02:00 Severe, [facility] XR CHEST 2 VIEWS 2022-09-17 14:50:00 Severe, [facility] ECG 12-LEAD 2022-09-17 13:48:54 Severe, [facility] ECG 12-LEAD 2022-09-17 13:48:54 Unknown, Hl7 [facility] ECG 12-LEAD 2022-09-17 13:48:54 Unknown, Hl7 [facility] EKG-SCANNED 2022-09-17 00:00:00 Provider, Default [facility] REFERRAL- REQUEST/RESPONSE 2022-09-03 05:01:00 Doctor Unassigned , [facility] Plan of Care Planned Activity [...] Cessation Counseling and Screening (12+)] Future Scheduled 2022-10-16 [facility]atitis [facility] Test 16:48:19 screening (procedure) [code = 225861366] Future Scheduled 2022-10-16 [facility] for [facility] Test 16:48:19 malignant neoplasm of cervix (procedure) [code = 423285880] Future Scheduled 2022-10-16 COVID-19 VACCINE (3 [facility] Test 16:48:19 - Booster for Pfizer series) [code = COVID-19 VACCINE (3 - Booster for Pfizer series)] Future Scheduled 2022-10-16 INFLUENZA VACCINE Method [facility] Hospital Test 16:48:19 [code = INFLUENZA VACCINE] Future Scheduled 2022-10-15 HEPATITIS B VACCINES Met [facility] Test 10:25:35 (1 of 3 - 3-dose series) [code = HEPATITIS B VACCINES (1 of 3 - 3-dose series)] Future Scheduled 2022-10-15 [facility] 10:25:35 screening (procedure) [code = 070482593] Future Scheduled 2022-10-15 [facility] for [facility] Test 10:25:35 malignant neoplasm of cervix (procedure) [code = 521037086] Future Scheduled 2022-10-15 COVID-19 VACCINE (3 [facility] Test 10:25:35 - Booster for Pfizer series) [code = COVID-19 VACCINE (3 - Booster for Pfizer series)] Future Scheduled 2022-10-15 INFLUENZA VACCINE [facility] Test 10:25:35 [code = INFLUENZA VACCINE] Future Scheduled 2022-10-15 HEPATITIS B VACCINES [facility] Test 10:25:35 (1 of 3 - 3-dose series) [code = HEPATITIS B VACCINES (1 of 3 - 3-dose series)] Future Scheduled 2022-10-15 [facility] 10:25:35 screening (procedure) [code = 160995292] Future Scheduled 2022-10-15 [facility] Test 10:25:35 malignant neoplasm of cervix (procedure) [code = 133729569] Future Scheduled 2022-10-15 COVID-19 VACCINE (3 Meth [...] [facility] (#[facility] [code = [facility] INFLUENZA VACCINE (#1)] Future Scheduled 2021-12-11 [...] C enter of cervix (procedure) [code = 825105080] Future Scheduled [address] [facility] Test 00:00:00 malignant neoplasm Medical C enter of cervix (procedure) [code = 493466395] Future Scheduled [address] [facility] Test 00:00:00 malignant neoplasm Medical C enter of cervix (procedure) [code = 304105302] Future Scheduled [address] [facility] Test 00:00:00 malignant neoplasm Medical C enter of cervix (procedure) [code = 707738124] Future Scheduled [address] [facility] Test 00:00:00 malignant neoplasm Medical C enter of cervix (procedure) [code = 174779047] Future Scheduled [address] [facility] Test 00:00:00 malignant neoplasm Medical C enter of cervix (procedure) [code = 939099955] Future Scheduled [address] [facility] Test [facility] (procedure) [code = [facility] Center 60023590] Future Scheduled [address] [facility] Test 00:00:00 (procedure) [code = Medical Center 05747064] Future Scheduled [address] [facility] Test 00:00:00 (procedure) [code = Medical Center 77441550] Future Scheduled [address] [facility] Test 00:00:00 (procedure) [code = Medical Center 17993587] Future Scheduled [address] [facility] Test 00:00:00 (procedure) [code = Medical Center 86442931] Future Scheduled [address] [facility] Test 00:00:00 (procedure) [code = Medical Center 34755231] Future Scheduled 2008 DTAP/TDAP/TD [facility] [...] s Test 00:00:00 VACCINES (4 - Tdap) [facility] [code = DTAP/TDAP/TD VACCINES (4 - Tdap)] [...] Goal Plan of Care Note [code = 21026-9] Goal Plan of Care Note [code = 80634-6] Goal Plan of Care Note [code = 19664-1] Goal Plan of Care Note [code = 33121-8] Goal Plan of Care Note [code = 87877-1] Goal Plan of Care Note [code = 34237-5] Goal Plan of Care Note [code = 43725-2] Goal Plan of Care Note [code = 56785-1] Goal Plan of Care Note [code = 83150-9] Goal Plan of Care Note [code = 14803-0] Goal Plan of Care Note [code = 05257-7] Goal Plan of Care Note [code = 82642-5] Goal Plan of Care Note [code = 94568-8] Goal Plan of Care Note [code = 55910-8] Goal Plan of Care Note [code = 88058-9] Goal Plan of Care Note [code = 83187-5] Goal Plan of Care Note [code = 89302-2] Goal Plan of Care Note [code = 83284-9] Goal Plan of Care Note [code = 39195-0] Goal Plan of Care Note [code = 79048-8] Goal Plan of Care Note [code = 29526-0] Goal Plan of Care Note [code = 10990-5] Goal Plan of Care Note [code = 94140-5] Goal Plan of Care Note [code = 10820-0] Goal Plan of Care Note [code = 12264-0] Goal Plan of Care Note [code = 91228-1] Goal Plan of Care Note [code = 57341-8] Goal Plan of Care Note [code = 78206-7] Goal Plan of Care Note [code = 50235-4] Goal Plan of Care Note [code = 05345-0] Goal Plan of Care Note [code = 87208-8] Goal Plan of Care Note [code = 33579-0] Goal Plan of Care Note [code = 46440-6] Goal Plan of Care Note [code = 33006-3] Goal Plan of Care Note [code = 75663-7] Goal Plan of Care Note [code = 97680-9] Goal Plan of Care Note [code = 22883-7] Goal Plan of Care Note [code = 69509-2] Goal Plan of Care Note [code = 77135-2] Goal Plan of Care Note [code = 38559-6] Goal Plan of Care Note [code = 37397-6] Goal Plan of Care Note [code = 69371-0] Goal Plan of Care Note [code = 00633-0] Goal Plan of Care Note [code = 84415-7] Goal Plan of Care Note [code = 98302-9] Goal Plan of Care Note [code = 85241-8] Goal Plan of Care Note [code = 56629-1] Goal Plan of Care Note [code = 18561-5] Goal Plan of Care Note [code = 21497-3] Goal Plan of Care Note [code = 14076-4] Goal Plan of Care Note [code = 10683-6] Goal Plan of Care Note [code = 31254-8] Encounters Start End Encounter Admission Attending Care Care Encounter Source Date/Time Date/Time Type Type Clinicians Facility Department ID 2022-04-24 Outpatient ABHI PAUL [id number] 16:04:42 DORIS 2022-10-16 2022-10-16 Outpatient DAVEY MARISCAL [id number] James 14:25:22 14:25:22 [id number] F Gustabo 2022-10-16 2022-10-16 Outpatient [id number] 00:00:00 00:00:00 Visit [id number] 2022-10-10 2022-10-10 Patient Vinicius, 1.2.840.1 [id number] Methodi 00:00:00 00:00:00 Outreach Laura 74955.1.[address] 3.430.2.7 Hospit a .3.969503 l .8 2022-10-10 2022-10-10 Patient Vinicius, 1.2.840.1 [id number] Methodi 00:00:00 00:00:00 Outreach Laura 57209.1.[address] 3.430.2.7 Hospit a .3.488271 l .8 2022-10-08 2022-10-08 Orders Doctor REJI 1.2.840.114 [id number] Univers 00:00:00 00:00:00 Only Unassigned, ARISTEO 350.1.13.10 ity of [place] [facility] 4.2.7.2.686 Miguel Angel as [id number] [address] 2022-10-05 2022-10-07 Emergency Donny Noel 1.2.840.1 [id number] Methodi 15:40:00 17:25:00 Rich Newton [address]52.1.[address] 3.430.2.7 Hospit a .3.057042 l .8 2022-10-05 2022-10-07 Emergency Donny Noel 1.2.840.1 [id number] Methodi 15:40:00 17:25:00 Rich [place] [address]02.1.[address] 3.430.2.7 Hospit a .3.127165 l .8 2022-10-02 2022-10-02 Outpatient [facility] [id number] James 13:45:08 13:45:08 [id number] F Gustabo 2022-09-29 2022-09-29 Outpatient [facility] [id number] [facility] 00:00:00 23:59:00 Lawanda 2022-09-29 2022-09-29 Emergency ER [facility] SLE Emergency 20 [id number] SLE 01:36:00 07:44:00 ROSSY OCHOA 2022-09-29 2022-09-29 Emergency ER [facility] [id number] 01:36:00 07:44:00 Rossy ochoa [facility] 2022-09-29 2022-09-29 Emergency [facility] [id number] 01:36:00 07:44:00 Rossy ochoa [facility] 2022-09-29 2022-09-29 Travel [facility] [id number] [facility] 00:00:00 00:00:00 [facility] 2022-09-29 2022-09-29 Travel [facility] [id number] [facility] 00:00:00 00:00:00 [facility] 2022-09-24 2022-09-24 Emergency X Oscar PENALOZA [facility] ERT [id number] Univers 18:19:00 21:37:00 ity of [facility] 2022-09-24 2022-09-24 Emergency Oscar Penaloza [facility] 1.2.840.114 [id number] Univers 18:19:00 21:37:00 Krystina LOPEZ 350.1.13.10 i [facility] 4.2.7.2.686 [facility] [id number] [address] 2022-09-24 2022-09-24 Outpatient [facility] [id number] James 17:01:48 17:01:48 [id number] F Gustabo 2022-09-24 2022-09-24 Outpatient [id number] 00:00:00 00:00:00 Visit [id number]-g -m21a-qwa 83e-cedbd8 [id number] ce2f51 2022-09-17 2022-09-19 Outpatient ER [facility] Emergency [id number] SLE 13:57:00 17:05:00 [facility] 2022-09-17 2022-09-19 Emergency ER Severe, Steve [facility] [id number] 13:57:00 17:05:00 [facility] 2022-09-17 2022-09-19 Emergency Severe, Steve [facility] [id number] 13:57:00 17:05:00 [facility] 2022-09-18 2022-09-18 Travel [facility] [id number] [facility] 00:00:00 00:00:00 [facility] 2022-09-18 2022-09-18 Travel [facility] [id number] [facility] 00:00:00 00:00:00 [facility] 2022-09-17 2022-09-17 Outpatient [facility] [id number] [facility] 00:00:00 23:59:00 Lawanda 2022-09-17 2022-09-17 Orders [facility] [id number] 00:00:00 00:00:00 Only [facility] 2022-09-17 2022-09-17 Orders [facility] [id number] 00:00:00 00:00:00 Only [facility] 2022-09-11 2022-09-11 Outpatient SFA SFA [id number] James 16:14:02 16:14:02 [id number] F Gustabo 2022-09-06 2022-09-06 Outpatient SFA SFA [id number] James 15:21:36 15:21:36 [id number] F Gustabo 2022-09-06 2022-09-06 Outpatient [id number] 00:00:00 00:00:00 Visit [id number] -[id number] 2022-09-03 2022-09-03 Outpatient SFA SFA [id number] James 14:25:05 14:25:05 [id number] F Gustabo 2022-09-03 2022-09-03 Orders Doctor REJI [id number] [facility] 00:00:00 00:00:00 Only Unassigned, ARISTEO [id number] [facility] of [place] [facility] [id number] Miguel Angel as [id number] [place] [address] [address] 2022-09-03 2022-09-03 Outpatient [id number]- [id number] fccdbf-f 00:00:00 00:00:00 Visit [id number] [id number] 2022-07-11 2022-07-12 Emergency E KIA, [facility] [address] [facility] 20:54:00 00:37:00 [facility] 2022-06-20 2022-06-20 Outpatient R DORIS STOVALL [facility] [id number] Univers 11:15:00 13:07:14 ity [facility] 2022-06-20 2022-06-20 Office Doris Stovall [id number] Univers 11:15:00 13:07:14 Visit Y PEDIATRIC 350.1.13.10 [place] [id number] [facility] PRIMARY [address] [facility] 2022-06-19 2022-06-19 Urgent [facility] 1.2.840.114 [id number] Univers 16:00:00 16:20:[address] [facility] 350.1.13.10 it y of [place] 4.2.7.2.686 Miguel Angel as HARPREET?BLEA [id number] [place] [address] MEDICAL OFFICE BUILDING 2022-06-19 2022-06-19 Outpatient R SHELIA [facility] [id number] Univers 16:00:00 16:00:00 SEAN ity [facility] 2022-06-19 2022-06-19 Orders Doctor REJI 1.2.840.114 [id number] Univers 00:00:00 00:00:00 Only Unassigned, ARISTEO 350.1.13.10 ity of [place] [facility] 4.2.7.2.686 Miguel Angel as [id number] [address] 2022-04-24 2022-04-24 Outpatient E SHAUNA [facility] 7506 [facility] 06:45:00 18:13:00 VICENTEMELINDADA 2022-04-14 2022-04-14 Emergency E MILLY, MHCY MHCY 7504 MHCY 14:10:00 18:49:00 THOMAS 2022-04-11 2022-04-13 Outpatient E RAE-HOUSER [facility] 750 3 MHCY 23:00:00 13:40:00 , YOHAN 2022-04-11 2022-04-11 Emergency E WALK, MHCY MHCY 7502 MHCY 04:18:00 06:47:00 BEENA 2022-04-10 2022-04-10 Emergency E JS, MHCY MHCY 7501 MHCY 10:05:00 14:04:00 [facility] 2022-03-28 2022-03-28 Emergency E JS, MHCY MHCY 7500 MHCY 14:03:00 20:48:00 [facility] 2022-03-26 2022-03-26 Emergency EM Crook, HCATB HCATB [id number] [facility] 21:24:00 22:58:00 Dav [id number] [facility] [place] 2022-03-26 2022-03-26 Emergency EM Crook, HCATB EO3 [id number] [facility] 21:24:00 22:58:00 Dav 03 [facility] [place] Results Test Description Test Time Test Comments Results Result Comments Source Urine culture 2022-10-07 01:05:00 Test Item Value Reference Range Interpretation Comme nts Urine culture (test code = 4657998) SEE COMMENT B[facility]iuria screen negative. [facility] [id number] 01:05:00 Test Item Value Reference Range Interpretation Comments Urine culture (test SEE COMMENT Bacteriu marija screen code = 5276406) negative. [facility] [id number] 01:05:00 Test Item Value Reference Range Interpretation Comments Urine culture (test SEE COMMENT Bacteriu marija screen code = 8093167) negative. [address]2022-12-03 22:11:54 Test Item Value Reference Range Interpretation Comments Ventricular rate (test code = 253) Atrial rate (test code = 255) [place] interval (test code = 266) QRSD interval [...] available-Electronica lly Signed By Reji Albrecht MD ([id number]) on 10/06/2022 4:11:[address]2022-12-03 22:11:54 Test Item Value Reference Range Interpretation Comments Ventricular rate (test code = 253) Atrial rate (test code = 255) [place] interval (test code = 266) QRSD interval [...] available-Electronica lly Signed By Reji Albrecht MD ([id number]) on 10/06/2022 4:11:[address]2022-12-03 22:11:54 Test Item Value Reference Range Interpretation Comments Ventricular rate (test code = 253) Atrial rate (test code = 255) [place] interval (test code = 266) QRSD interval [...] available-Electronica lly Signed By Reji Albrecht MD ([id number]) on 10/06/2022 4:11:50 PM Lawrence NoelARS-CoV-2 (COVID-19) RNA [Presence] in Respiratory specimen by MARIA C with probe [id number] 00:39:44 Test Item Value Reference Range Interpretation Comments SARS-CoV-2 (COVID-19) RNA Not detected [Presence] in Respiratory specimen by MARIA C with probe detection (test code = 20175-6) Whether patient is employed in a Unknown healthcare setting (test code = 73793-8) Whether the patient has symptoms Unknown related to condition of interest (test code = 66512-8) Whether the patient was Unknown hospitalized for condition of interest (test code = 35658-8) Whether the patient was admitted Unknown to intensive care unit (ICU) for condition of interest (test code = 93321-3) Whether patient resides in a Unknown congregate care setting (test code = 63847-6) status (test code = Unknown 39335-0) Date and time of symptom onset Unknown (test code = 31396-0) CHELLE PEREZ(CELLAVISION MANUAL DIFF)2022-09-29 06:57:14 Test Item [...] CONCENTRATION Adequate (CELLAVISION)(BEAKER) (test code = 3438) Production Assistant ID - Carlee Brown comments: Slide comments:CBC W/PLT COUNT & AUTO [id number] 06:57:13 Test Item Value Reference Range Interpretation [...] (BEAKER) (test code = 413) HCG, QUANTITATIVE, [id number] 05:03:53 Test Item Value Reference Range Interpretation Comments GONADOTROPIN, CHORIONIC (HCG) QUANT < mIU/mL 0-10 (BEAKER) (test code = 649) Non- Females: <10 mIU/mL Females: Gestation Age Reference Range(mIU/mL) 0.2-1 Week 5-50 1-2 Weeks 50-500 2-3 Weeks 100-5,000 3-4 Weeks 500-10,000 4-5 Weeks 1,000-50,000 5-6 Weeks 10,000-100,000 6-8 Weeks 15,000- 200,000 2-3 Months 10,000-100,000 Production Assistant PAM DE LA CRUZ [id number] 04:29:17 Test Item Value Reference Range Interpretation Comments MAGNESIUM (BEAKER) 1.9 mg/dL 1.6-2.6 Specimen slightly (test code = 627) hemolyzed Production Assistant PAM DE LA CRUZ LBASIC METABOLIC [id number] 04:29:17 Test Item Value Reference Range Interpretation [...] not appl icable for dialysis patien ts Production Assistant ID - PITHOMAS LOZADA-MONONUCLEOSIS [id number] 03:07:10 Test Item Value Reference Range Interpretation Comments EBV Mononucleosis Screen (test code Negative Negative = 0469943189) Lab Interpretation (test code = Normal 84383-4) [id number] 02:37:00 Test Item Value Reference Range Interpretation Comments POCT PREG (test code = 1605) negative On board controls acceptable with present C Line (test code = 3574) POCT PREG LOT # (test code = 3575) [id number] POCT PREG TEST DATE (test 02/02/2024 code = 3576) Lab Interpretation (test code = Normal 39333-7) [facility] [id number] 01:15:13 Test Item Value Reference Interpretation Comments Range TROPONIN I (test 0.002 ng/mL See_Comment [Automated code = 9289139431) message] The system which generated this result [...] biotin. Lab Interpretation Normal (test code = 13638-4) [facility] [id number] 01:11:55 Test Item Value Reference Range Interpretation Comments NT-proBNP (test code 16 pg/mL See_Comment [Autom ated = 8417049547) message] The system which generated this result transmitted reference range : <=125. The reference range was not used to interpret this result as normal/abnormal . JAYDE (test code = JAYDE) Biotin has been reported to cause a negative bias, interpret results relative to patient's use of biotin. Lab Interpretation Normal (test code = 36051-5) [facility][id number] 01:10:03 Test Item Value Reference Interpretation Comments Range D-DIMER (test code = See_Comment [Autom ated 7922626208) message] The system which generated this result [...] diagnosis. Lab Interpretation Normal (test code = 67583-4) [facility]2022-[facility]-22 01:03:37 Test Item Value Reference Range Interpretation Comments MAGNESIUM (test code = 7824956108) 1.9 mg/dL 1.7-2.4 Lab Interpretation (test code = Normal 58975-3) [facility]OLIC PANEL (11627)2022-09-25 01:03:36 Test Item Value Reference Range Interpretation Comments NA (test code = 142 mmol/L 135-145 7993711433) K (test code = 3.8 mmol/L 3.5-5.0 8120856907) CL (test code = 111 mmol/L 98-108 H 4764909246) CO2 TOTAL (test code = 21 mmol/L 23-31 L 6713704320) AGAP (test code = 2-16 8793510322) BUN (test code = 11 mg/dL 7-23 3105253151) GLUCOSE (test code = 110 mg/dL 70-110 7873713545) CREATININE (test code = 0.92 mg/dL 0.50-1.04 5787296521) TOTAL BILI (test code = 0.4 mg/dL 0.1-1.1 0807689096) CALCIUM (test code = 9.1 mg/dL 8.6-10.6 2598998041) T PROTEIN (test code = 6.9 g/dL 6.3-8.2 6532137792) ALBUMIN (test code = 4.3 g/dL 3.5-5.0 7059880034) ALK PHOS (test code = 121 U/L 34-122 3368682434) ALTv (test code = 54 U/L 5-35 H 1742-6) AST(SGOT) (test code = 38 U/L 13-40 2444234922) eGFR (test code = mL/min/1.73m2 1140247256) JAYDE (test code = JAYDE) Association of [...] tests). Lab Interpretation Abnormal (test code = 67874-0) [facility] WITH [id number] 00:50:11 Test Item Value Reference Range Interpretation Comments WBC (test code = See_Comment H [Automated 6690-2) message] The sy stem which generated this result transmitted reference range : 4.30 - 11.10 10*3/?L. The reference range was not used to interpret this result as normal/abnormal . RBC (test code = See_Comment [Automated 789-8) message] The sy stem which generated this [...] RDW-SD (test code = 48.3 fL 39.0-49.9 29230-6) RDW-CV (test code = 16.0 % 12.0-15.5 H 788-0) PLT (test code = See_Comment [Automated 777-3) message] The sy stem which generated this result transmitted reference range : 166 - 358 10*3/ ?L. The reference r jason was not used to interpret this result as normal/abnormal . MPV (test code = 9.9 fL 9.5-12.9 24360-6) NRBC/100 WBC (test See_Comment [Automat ed code = 6855793156) message] The system which generated this result transmitted reference range : 0.0 - 10.0 /100 WBCs. The refer ence range was not u sed to interpret th is result as normal/abnormal . NRBC x10^3 (test code See_Comment [Auto mated = 5221394330) message] The s ystem which generated this result transmitted reference range : 10*3/?L. The reference range was not used to interpret this result as normal/abnormal . GRAN MAT (NEUT) % 71.2 % (test code = 770-8) IMM GRAN % (test code 0.90 % = 9653096565) LYMPH % (test code = 20.4 % 736-9) MONO % (test code = 6.0 % 5905-5) EOS % (test code = 1.1 % 713-8) BASO % (test code = 0.4 % 706-2) GRAN MAT x10^3(ANC) 9.94 10*3/uL 1.88-7.09 H (test code = 2046244961) IMM GRAN x10^3 (test 0.12 10*3/uL 0.00-0.06 H code = 7670460338) LYMPH x10^3 (test code 2.84 10*3/uL 1.32-3.29 = 731-0) MONO x10^3 (test code 0.84 10*3/uL 0.33-0.92 = 742-7) EOS x10^3 (test code = 0.15 10*3/uL 0.03-0.39 711-2) BASO x10^3 (test code 0.05 10*3/uL 0.01-0.07 = 704-7) Lab Interpretation Abnormal (test code = 39506-1) [facility]Do[facility](CW/PW/Color)2022-09-19 12:25:54Ejection FractionSLEH ECHO HEARTLAB [facility]Do[facility](CW/PW/Color)2022-09-19 12:25:54Ejection FractionSLEH ECHO HEARTLAB [facility] W/Doppler(CW/PW/Color)2022-09-19 12:25:54Ejection FractionSLEH ECHO HEARTLAB [facility] W/Doppler(CW/PW/Color) 2022-09-19 12:25:54Ejection FractionSLEH ECHO HEARTLAB [facility] W/Doppler(CW/PW/Color)2022-09-19 12:25:54Ejection FractionSLEH ECHO HEARTLAB [facility] W/Doppler(CW/PW/Color)2022-09-19 12:25:54Ejection FractionSLEH ECHO HEARTLAB [facility] [id number] 06:21:24 Test Item Value Reference Range Interpretation [...] not appl icable for dialysis patien ts Production Assistant ID - BAN [id number] 06:21:24 Test Item Value Reference Range Interpretation Comments MAGNESIUM (BEAKER) (test code = 2.0 mg/dL 1.6-2.6 627) Production Assistant ID Shazia CEVALLOS [facility] W/PLT COUNT & AUTO [id number] 05:15:21 Test Item Value Reference Range Interpretation [...] code = 2801) MR, MRA, BRAIN, WITHOUT [id number] 20:21:00Reason for exam:->Ischemic Stroke [facility] : 1990 Sex: FFINAL [...] 09/18/2022 20:21:23 MR, MRA, NECK, WITHOUT IV [id number] 20:21:00Reason for exam:->Ischemic Stroke EvaluationGO[facility] : 1990 Sex: FFINAL [...] Verified Date/Time: 09/18/2022 20:21:23 MR, BRAIN, WITHOUT [id number] 20:21:00Reason for exam:->Ischemic Stroke EvaluationGO[facility]Name[facility] : 1990 Sex: FFINAL [...] [place] MDReport Verified Date/Time: 09/18/2022 20:21:23 Screen, [id number] 17:50:03 Test Item Value Reference Range Interpretation Comments Preg Test, Ur (test code = 2112-1) Negative Negative Lab Interpretation (test code = Normal 47780-2) [facility] [id number] 17:50:03 Test Item Value Reference Range Interpretation Comments Preg Test, Ur (test code = 2112-1) Negative Negative Lab Interpretation (test code = Normal 84208-6) [facility], [id number] 17:50:03 Test Item Value Reference Range Interpretation Comments Preg Test, Ur (test code = 2112-1) Negative Negative Lab Interpretation (test code = Normal 80096-8) [facility], [id number] 17:50:03 Test Item Value Reference Range Interpretation Comments Preg Test, Ur (test code = 2112-1) Negative Negative Lab Interpretation (test code = Normal 20813-7) [facility], [id number] 17:50:03 Test Item Value Reference Range Interpretation Comments Preg Test, Ur (test code = 2112-1) Negative Negative Lab Interpretation (test code = Normal 98566-0) [facility], [id number] 17:50:03 Test Item Value Reference Range Interpretation Comments Preg Test, Ur (test code = 2112-1) Negative Negative Lab Interpretation (test code = Normal 62260-1) [facility] SCREEN, [id number] 17:50:03 Test Item Value Reference Range Interpretation Comments TEST URINE (BEAKER) (test Negative Negative code = 583) Urinalysis w/ [id number] 07:01:05 Test Item Value Reference Range Interpretation Comments Color, UA (test code Yellow = 5778-6) Clarity, UA (test Clear code = 5767-9) Specific [place], UA >1.050 1.001-1.035 H (test code = 5811-5) pH, UA (test code = 9.0 5.0-8.0 H 5803-2) Protein, UA (test 70 mg/dL Negative A code = 06817-3) Glucose, UA (test Negative Negative code = 365) Ketones, UA (test Negative Negative code = 2514-8) Bilirubin, UA (test Negative Negative code = 99946-2) Blood, UA (test code Negative Negative = 69337-0) Nitrite, UA (test Negative Negative code = 5802-4) Leukocytes, UA (test Negative Negative code = 5799-2) Urobilinogen, UA 0.2 0.2-1.0 (test code = 17433-9) RBC, UA (test code = 2 See_Comment [Autom ated 31171-7) message] The system which generated this result [...] 4 See_Comment [Automate d (test code = 92102-1) messag e] The system which generated this result transmit ajay reference range : /HPF. The reference range was not used to interpret this result as normal/abnormal . Specimen Source (test Urine, Clean code = 2795) Catch JAYDE (test code = JAYDE) Production Assistant ID - tech Lab Interpretation Abnormal (test code = 01744-0) [facility]/ [id number] 07:01:05 Test Item Value Reference Range Interpretation Comments Color, UA (test code Yellow = 5778-6) Clarity, UA (test Clear code = 5767-9) Specific [place], UA >1.050 1.001-1.035 H (test code = 5811-5) pH, UA (test code = 9.0 5.0-8.0 H 5803-2) Protein, UA (test 70 mg/dL Negative A code = 83333-1) Glucose, UA (test Negative Negative code = 365) Ketones, UA (test Negative Negative code = 2514-8) Bilirubin, UA (test Negative Negative code = 77317-9) Blood, UA (test code Negative Negative = 61518-0) Nitrite, UA (test Negative Negative code = 5802-4) Leukocytes, UA (test Negative Negative code = 5799-2) Urobilinogen, UA 0.2 0.2-1.0 (test code = 99585-6) RBC, UA (test code = 2 See_Comment [Autom ated 37246-9) message] The system which generated this result [...] 4 See_Comment [Automate d (test code = 16456-4) messag e] The system which generated this result transmit ajay reference range : /HPF. The reference range was not used to interpret this result as normal/abnormal . Specimen Source (test Urine, Clean code = 2795) Catch JAYDE (test code = JAYDE) Production Assistant ID - tech Lab Interpretation Abnormal (test code = 84314-9) [facility]/ [id number] 07:01:05 Test Item Value Reference Range Interpretation Comments Color, UA (test code Yellow = 5778-6) Clarity, UA (test Clear code = 5767-9) Specific [place], UA >1.050 1.001-1.035 H (test code = 5811-5) pH, UA (test code = 9.0 5.0-8.0 H 5803-2) Protein, UA (test 70 mg/dL Negative A code = 64889-5) Glucose, UA (test Negative Negative code = 365) Ketones, UA (test Negative Negative code = 2514-8) Bilirubin, UA (test Negative Negative code = 14384-5) Blood, UA (test code Negative Negative = 73218-2) Nitrite, UA (test Negative Negative code = 5802-4) Leukocytes, UA (test Negative Negative code = 5799-2) Urobilinogen, UA 0.2 0.2-1.0 (test code = 30618-5) RBC, UA (test code = 2 See_Comment [Autom ated 45928-7) message] The system which generated this result [...] 4 See_Comment [Automate d (test code = 21638-3) messag e] The system which generated this result transmit ajay reference range : /HPF. The reference range was not used to interpret this result as normal/abnormal . Specimen Source (test Urine, Clean code = 2795) Catch JAYDE (test code = JAYDE) Production Assistant ID - tech Lab Interpretation Abnormal (test code = 77552-2) [facility]/ [id number] 07:01:05 Test Item Value Reference Range Interpretation Comments Color, UA (test code Yellow = 5778-6) Clarity, UA (test Clear code = 5767-9) Specific [place], UA >1.050 1.001-1.035 H (test code = 5811-5) pH, UA (test code = 9.0 5.0-8.0 H 5803-2) Protein, UA (test 70 mg/dL Negative A code = 54096-1) Glucose, UA (test Negative Negative code = 365) Ketones, UA (test Negative Negative code = 2514-8) Bilirubin, UA (test Negative Negative code = 24331-7) Blood, UA (test code Negative Negative = 96409-6) Nitrite, UA (test Negative Negative code = 5802-4) Leukocytes, UA (test Negative Negative code = 5799-2) Urobilinogen, UA 0.2 0.2-1.0 (test code = 59811-7) RBC, UA (test code = 2 See_Comment [Autom ated 78852-5) message] The system which generated this result transmit aajy reference range : /HPF. The reference range was not used to interpret this result as normal/abnormal . WBC, UA (test code = 1 See_Comment [Autom ated 5821-4) message] The system which generated this result transmit ajay reference range : /HPF. The reference range was not used to interpret this result as normal/abnormal . Squam Epithel, UA 4 See_Comment [Automate d (test code = 35190-6) messag e] The system which generated this result transmit ajay reference range : /HPF. The reference range was not used to interpret this result as normal/abnormal . Specimen Source (test Urine, Clean code = 2795) Catch JAYDE (test code = JAYDE) Production Assistant ID - tech Lab Interpretation Abnormal (test code = 56641-4) [facility]/ [id number] 07:01:05 Test Item Value Reference Range Interpretation Comments Color, UA (test code Yellow = 5778-6) Clarity, UA (test Clear code = 5767-9) Specific [place], UA >1.050 1.001-1.035 H (test code = 5811-5) pH, UA (test code = 9.0 5.0-8.0 H 5803-2) Protein, UA (test 70 mg/dL Negative A code = 17755-6) Glucose, UA (test Negative Negative code = 365) Ketones, UA (test Negative Negative code = 2514-8) Bilirubin, UA (test Negative Negative code = 36898-0) Blood, UA (test code Negative Negative = 55967-7) Nitrite, UA (test Negative Negative code = 5802-4) Leukocytes, UA (test Negative Negative code = 5799-2) Urobilinogen, UA 0.2 0.2-1.0 (test code = 21498-7) RBC, UA (test code = 2 See_Comment [Autom ated 91981-6) message] The system which generated this result transmit ajay reference range : /HPF. The reference range was not used to interpret this result as normal/abnormal . WBC, UA (test code = 1 See_Comment [Autom ated 5821-4) message] The system which generated this result transmit ajay reference range : /HPF. The reference range was not used to interpret this result as normal/abnormal . Squjeff Epithel, UA 4 See_Comment [Automate d (test code = 60480-3) messag e] The system which generated this result transmit ajay reference range : /HPF. The reference range was not used to interpret this result as normal/abnormal . Specimen Source (test Urine, Clean code = 2795) Catch JAYDE (test code = JAYDE) Production Assistant ID - tech Lab Interpretation Abnormal (test code = 43888-9) [facility]/ Kmhrvpitejv0654-42-09 07:01:05 Test Item Value Reference Range Interpretation Comments Color, UA (test code Yellow = 5778-6) Clarity, UA (test Clear code = 5767-9) Specific [place], UA >1.050 1.001-1.035 H (test code = 5811-5) pH, UA (test code = 9.0 5.0-8.0 H 5803-2) Protein, UA (test 70 mg/dL Negative A code = 53995-7) Glucose, UA (test Negative Negative code = 365) Ketones, UA (test Negative Negative code = 2514-8) Bilirubin, UA (test Negative Negative code = 66334-1) Blood, UA (test code Negative Negative = 68306-6) Nitrite, UA (test Negative Negative code = 5802-4) Leukocytes, UA (test Negative Negative code = 5799-2) Urobilinogen, UA 0.2 0.2-1.0 (test code = 56522-4) RBC, UA (test code = 2 See_Comment [Autom ated 85295-0) message] The system which generated this result [...] 4 See_Comment [Automate d (test code = 20655-6) messag e] The system which generated this result transmit ajay reference range : /HPF. The reference range was not used to interpret this result as normal/abnormal . Specimen Source (test Urine, Clean code = 2795) Catch JAYDE (test code = JAYDE) Production Assistant ID - tech Lab Interpretation Abnormal (test code = 12292-2) [facility]/ [id number] 07:01:05 Test Item Value Reference Range Interpretation [...] SOURCE(BEAKER) (test code Urine, Clean Catch = 1887) Production Assistant ID - [id number] 06:54:51 Test Item Value Reference Range Interpretation Comments MAGNESIUM (BEAKER) (test code = 2.1 mg/dL 1.6-2.6 627) Production Assistant ID - BAN MBASIC METABOLIC [id number] 06:54:50 Test Item Value Reference Range Interpretation [...] not appl icable for dialysis patien ts Production Assistant ID - BAN MTSH/FREE T4 IF [id number] 06:50:48 Test Item Value Reference Range Interpretation Comments THYROID STIMULATING HORMONE 1.889 uIU/mL 0.350-4.940 (ANA) (test code = 772) Production Assistant ID - BAN MHIGH SENSITIVITY TROPONIN [id number] 06:31:22 Test Item Value Reference Range Interpretation Comments HIGH SENSITIVITY < pg/ml See_Comment [Automated message] TROPONIN I (test code = The system which 6476633) generated this result transmitted ref erence range: <=17. Th e reference range was not used to interpr et this result as normal/abnormal . Production Assistant ID - BAN MThe BOWLING BALL WEIGHER AND PACKER STAT High Sensitivity Troponin-I results should be used in conjunction with other diagnostic information such as ECG, clinical observations and information, and patient symptoms to aid in the diagnosis of ME.CBC W/PLT COUNT & AUTO [id number] 06:05:36 Test Item Value Reference Range Interpretation Comments WHITE BLOOD CELL COUNT (TARUNAKER) 13.2 K/ L 3.5-10.5 H (test code [...] (test code = 2801) HIGH SENSITIVITY TROPONIN [id number] 22:00:49 Test Item Value Reference Range Interpretation Comments HIGH SENSITIVITY < pg/ml See_Comment [Automated message] TROPONIN I (test code = The system which 9780454) generated this result transmitted ref erence range: <=17. Th e reference range was not used to interpr et this result as normal/abnormal . Production Assistant ID - MITCHThe BOWLING BALL WE[employer]HER [employer] PACKER STAT High Sensitivity Troponin-I results should be used in conjunction with other diagnostic information such as ECG, clinical observations and information, and patientsymptoms to aid in the diagnosis of ME. CTA, CHEST, ABDOMEN - PELVIS, FOR [id number] 21:55:00Unlisted Reason for Exam - Click Yes and Enter Reason Below->YesUnlisted Reason for Exam->Severe chest pain that radiates to the back [facility] : 1990 Sex: FFINAL REPORT TECHNIQUE: CTA of the chest, abdomen, and pelvis WITH intravenous contrast and WITHOUT oral contrast. Coronal sagittal reformations were performed. Additional 3-D volume rendered images of the thoracic and abdominal aorta [...] patent. Single right and duplicated left renal arterieswithout hemodynamically significant stenosis. Iliac arteries without aneurysm, dissection or hemodynamically significant stenosis. LUNGS AND AIRWAYS: The lungs and airways are normal without focal abnormality.PLEURA: Small bilateral pleural effusions.HEART AND MEDIASTINUM: The visualized thyroid glandis normal. No significant mediastinal, hilar, or axillary lymphadenopathy. The heart and pericardiumare within normal limits. HEPATOBILIARY: No focal hepatic lesions. Gallbladder is unremarkable. No biliary ductal dilatation.SPLEEN: No splenomegaly.PANCREAS: No focal masses or ductal dilatation. ADRENALS: No adrenal nodules.KIDNEYS/URETERS: No hydronephrosis, stones, or masses. 1.0 cm right mid to lower pole renal cortical cyst.PELVIC ORGANS/BLADDER: Unremarkable. PERITONEUM/RETROPERITONEUM: No free air or fluid.LYMPH NODES: No lymphadenopathy.VESSELS: Unremarkable. GI TRACT: No distention or wall thickening. Normal appendix. BONES AND SOFT TISSUES: Unremarkable. IMPRESSION: 1. No thoracic or abdominal aortic aneurysm or dissection.2. Small bilateral pleural effusions. No acute pulmonary parenchymal process.3. Normal appendix. No acute inflammatory process within the abdomen or pelvis. Signed: Chepe Aaron MDReport Verified Date/Time: 09/17/2022 21:55:51 HCG, QUANTITATIVE, [id number] 19:18:36 Test Item Value Reference Range Interpretation Comments GONADOTROPIN, CHORIONIC (HCG) QUANT < mIU/mL 0-10 (BEAKER) (test code = 649) Non- Females: <10 mIU/mL Females: Gestation Age Reference Range(mIU/mL) 0.2-1 Week 5-50 1-2 Weeks 50-500 2-3 Weeks 100-5,000 3-4 Weeks 500-10,000 4-5 Weeks 1,000-50,000 5-6 Weeks 10,000-100,000 6-8 Weeks 15,000- 200,000 2-3 Months 10,000-100,000 Production Assistant ID - MITCHSARS-CoV2/RT-PCR (Asymptomatic ONLY)2022-09-17 17:05:31 Test Item Value Reference Interpretation Comments Range SARS-COV2/RT-PCR Negative Negative The SARS-Co V-2 (test code = target nucleic 83469-5) acids are not detected in thi s [...] om SARS-CoV-2 in a nasopharyngeal swab specimen [facility] ajay from individual s suspected of COVID-19 [...] revoked sooner. Fact Sheet for Healthcare Providers: https://www.[employer]/Documents/Xp ert%20Xpress%20SAR S%20CoV-2/Fact%20S heets/302-3802%20S ARS-COV-2%20HEALTH CARE%20PROVIDERS%2 0FACT%20SHEET.pdf Fact Sheet for Healthcare Patients: https://www.[employer]/Documents/Xp ert%20Xpress%20SAR S%20CoV-2/Fact%20S heets/302-3801%20S ARS-COV-2%20PATIEN T%20FACT%20SHEET.p df Lab Interpretation Normal (test code = 79680-2) [facility]2022-09-17 17:05:31 Test Item Value Reference Interpretation Comments Range SARS-COV2/RT-PCR Negative Negative The SARS-Co V-2 (test code = target nucleic 83985-7) acids are not detected in thi s [...] revoked sooner. Fact Sheet for Healthcare Providers: https://www.[employer]/Documents/Xp ert%20Xpress%20SAR S%20CoV-2/Fact%20S heets/302-3802%20S ARS-COV-2%20HEALTH CARE%20PROVIDERS%2 0FACT%20SHEET.pdf Fact Sheet for Healthcare Patients: https://www.[employer]/Documents/Xp ert%20Xpress%20SAR S%20CoV-2/Fact%20S heets/302-3801%20S ARS-COV-2%20PATIEN T%20FACT%20SHEET.p df Lab Interpretation Normal (test code = 89516-9) [facility]2022-09-17 17:05:31 Test Item Value Reference Interpretation Comments Range SARS-COV2/RT-PCR Negative Negative The SARS-Co V-2 (test code = target nucleic 14960-1) acids are not detected in thi s [...] revoked sooner. Fact Sheet for Healthcare Providers: https://www.[employer]/Documents/Xp ert%20Xpress%20SAR S%20CoV-2/Fact%20S heets/302-3802%20S ARS-COV-2%20HEALTH CARE%20PROVIDERS%2 0FACT%20SHEET.pdf Fact Sheet for Healthcare Patients: https://wwwAruba Networks/Documents/Xp ert%20Xpress%20SAR S%20CoV-2/Fact%20S heets/302-3801%20S ARS-COV-2%20PATIEN T%20FACT%20SHEET.p df Lab Interpretation Normal (test code = 60238-4) [facility]2022-09-17 17:05:31 Test Item Value Reference Interpretation Comments Range SARS-COV2/RT-PCR Negative Negative The SARS-Co V-2 (test code = target nucleic 20015-7) acids are not detected in thi s [...] revoked sooner. Fact Sheet for Healthcare Providers: https://www.[employer]/Documents/Xp ert%20Xpress%20SAR S%20CoV-2/Fact%20S heets/302-3802%20S ARS-COV-2%20HEALTH CARE%20PROVIDERS%2 0FACT%20SHEET.pdf Fact Sheet for Healthcare Patients: https://wwwAruba Networks/Documents/Xp ert%20Xpress%20SAR S%20CoV-2/Fact%20S heets/302-3801%20S ARS-COV-2%20PATIEN T%20FACT%20SHEET.p df Lab Interpretation Normal (test code = 39665-6) [facility]2022-09-17 17:05:31 Test Item Value Reference Interpretation Comments Range SARS-COV2/RT-PCR Negative Negative The SARS-Co V-2 (test code = target nucleic 60057-9) acids are not detected in thi s [...] revoked sooner. Fact Sheet for Healthcare Providers: https://www.[employer]/Documents/Xp ert%20Xpress%20SAR S%20CoV-2/Fact%20S heets/302-3802%20S ARS-COV-2%20HEALTH CARE%20PROVIDERS%2 0FACT%20SHEET.pdf Fact Sheet for Healthcare Patients: https://www.[employer]/Documents/Xp ert%20Xpress%20SAR S%20CoV-2/Fact%20S heets/302-3801%20S ARS-COV-2%20PATIEN T%20FACT%20SHEET.p df Lab Interpretation Normal (test code = 12736-4) [facility]2022-09-17 17:05:31 Test Item Value Reference Interpretation Comments Range SARS-COV2/RT-PCR Negative Negative The SARS-Co V-2 (test code = target nucleic 70202-2) acids are not detected in thi s [...] revoked sooner. Fact Sheet for Healthcare Providers: https://www.[employer]/Documents/Xp ert%20Xpress%20SAR S%20CoV-2/Fact%20S heets/302-3802%20S ARS-COV-2%20HEALTH CARE%20PROVIDERS%2 0FACT%20SHEET.pdf Fact Sheet for Healthcare Patients: https://www.[employer]/Documents/Xp ert%20Xpress%20SAR S%20CoV-2/Fact%20S heets/302-3801%20S ARS-COV-2%20PATIEN T%20FACT%20SHEET.p df Lab Interpretation Normal (test code = 15137-6) [facility])2022-09-17 17:05:31 Test Item Value Reference Range Interpretation Comments SARS-COV2/RT-PCR Negative Negative The SARS-Co V-2 target (test code = nucleic acids a re not 6606618) detected in thi s specimen. Negative result [...] revoked sooner. Fact Sheet for Healthcare Providers: https://www.[employer] m/Documents/Xpert%20Xpress%20SARS%20CoV-2/Fact%20Sheets/302-3802%29SFQA-VBS-9%20 HEALTHCARE%20PROVIDERS%20FACT%20SHEET.pdf Fact Sheet for Healthcare Patients: https://www.[employer]/Documents/Xpert%20Xp ress%20SARS%20CoV-2/Fact%20Sheets/302-3801%66JOCJ-TGO-7%20PATIENT%20FACT%20SHEET .pdfURINALYSIS W/ [id number] 16:55:30 Test Item Value Reference Range Interpretation [...] (test code Urine, Clean Catch = 2795) Production Assistant ID - [auto]Production Assistant ID - techB-TYPE NATRIURETIC FACTOR (BNP)2022-09-17 16:53:49 Test Item Value Reference Range Interpretation Comments B-TYPE NATRIURETIC PEPTIDE (BEAKER) < pg/mL 0-100 (test code = 700) Production Assistant ID - LAVONHIGH SENSITIVITY TROPONIN [id number] 16:50:10 Test Item Value Reference Range Interpretation Comments HIGH SENSITIVITY < pg/ml See_Comment [Automated message] TROPONIN I (test code = The system which 9057917) generated this result transmitted ref erence range: <=17. Th e reference range was not used to interpr et this result as normal/abnormal . Production Assistant ID - LAVONThe BOWLING BALL [employer]IGHER AND PACKER STAT High Sensitivity Troponin-I results should be used in conjunction with other diagnostic information such as ECG, clinical observations and information, and patientsymptoms to aid in the diagnosis of ME. COMPREHENSIVE METABOLIC [id number] 16:46:05 Test Item Value Reference Range Interpretation [...] not appl icable for dialysis patien ts Production Assistant ID - MITCHLACTIC ACID, [id number] 16:29:26 Test Item Value Reference Range Interpretation Comments LACTATE BLOOD VENOUS (2) (BEAKER) 1.86 mmol/L 0.50-2.20 (test code = 2872) Production Assistant ID - BAN MCBC W/PLT COUNT & AUTO [id number] 16:21:12 Test Item Value Reference Range Interpretation [...] (test code = 2801) RAD, CHEST, 2 [id number] 14:55:00Reason for exam:->SHORTNESS OF BREATHReason for exam:->CHEST PAIN [facility] 1990 Sex: FFINAL REPORT INDICATION: SHORTNESS OF BREATHCHEST PAIN COMPARISON: None TECHNIQUE: AP and lateral view of the chest. FINDINGS: Lungs and pleura: Clear lungs. No effusion.Heart and mediastinum: Normal heart size. Unremarkable mediastinal contours.Osseous structures: No acute abnormality.Other: None. IMPRESSION: No acute intrathoracic abnormality. Signed: Joanna Moser MDReport Verified Date/Time: 09/17/2022 14:55:44 Reading Location: [address] Reading Room CULTURE, [id number] 00:00:00 Test Item Value Reference Range Interpretation Comments CULTURE, URINE (test SPECIMEN NUMBER: code = 73971) [id number] CULTURE, [id number] 00:00:00 Test Item Value Reference Range Interpretation Comments CULTURE, URINE (test SPECIMEN NUMBER: code = 00561) [id number] CULTURE, [id number] 00:00:00 Test Item Value Reference Range Interpretation Comments CULTURE, URINE (test SPECIMEN NUMBER: code = 21739) [id number] CULTURE, [id number] 00:00:00 Test Item Value Reference Range Interpretation Comments CULTURE, URINE (test SPECIMEN NUMBER: code = 32913) [id number] JOSE CARLOS [id number] 00:00:00 Test Item Value Reference Range Interpretation Comments ANTI-NUCLEAR ANTIBODIES (test NEGATIVE code = 3506) JOSE CARLOS PATTERN (REPORTED SEE BELOW TITER) (test code = 08908) HOMOGENEOUS (test code = NEGATIVE TITER 98712) SPECKLED (test code = 565735) NEGATIVE TITER DENSE FINE SPECKLED (test code NEGATIVE TITER = 27247) CENTROMERE (test code = NEGATIVE TITER 182382) COARSE SPECKLED (test code = NEGATIVE TITER 246069) DISCRETE NUCLEAR DOTS (test NEGATIVE TITER code = 999851) NUCLEOLAR (test code = 053716) NEGATIVE TITER NUCLEAR MEMBRANE (test code = NEGATIVE TITER 350334) CYTO. RETICULAR (RAMANDEEP) (test NEGATIVE code = 647448) COMMENTS (test code = 176565) NONE METHOD (test code = 52190) (NOTE) JOSE CARLOS [id number] 00:00:00 Test Item Value Reference Range Interpretation Comments ANTI-NUCLEAR ANTIBODIES (test NEGATIVE code = 3506) JOSE CARLOS PATTERN (REPORTED SEE BELOW TITER) (test code = 15670) HOMOGENEOUS (test code = NEGATIVE TITER 25342) SPECKLED (test code = 528428) NEGATIVE TITER DENSE FINE SPECKLED (test code NEGATIVE TITER = 20986) CENTROMERE (test code = NEGATIVE TITER 218253) COARSE SPECKLED (test code = NEGATIVE TITER 773991) DISCRETE NUCLEAR DOTS (test NEGATIVE TITER code = 915462) NUCLEOLAR (test code = 080272) NEGATIVE TITER NUCLEAR MEMBRANE (test code = NEGATIVE TITER 681880) CYTO. RETICULAR (RAMANDEEP) (test NEGATIVE code = 169334) COMMENTS (test code = 859164) NONE METHOD (test code = 10153) (NOTE) JOSE CARLOS [id number] 00:00:00 Test Item Value Reference Range Interpretation Comments ANTI-NUCLEAR ANTIBODIES (test NEGATIVE code = 3506) JOSE CARLOS PATTERN (REPORTED SEE BELOW TITER) (test code = 86436) HOMOGENEOUS (test code = NEGATIVE TITER 42529) SPECKLED (test code = 506126) NEGATIVE TITER DENSE FINE SPECKLED (test code NEGATIVE TITER = 21025) CENTROMERE (test code = NEGATIVE TITER 175050) COARSE SPECKLED (test code = NEGATIVE TITER 362457) DISCRETE NUCLEAR DOTS (test NEGATIVE TITER code = 712556) NUCLEOLAR (test code = 113579) NEGATIVE TITER NUCLEAR MEMBRANE (test code = NEGATIVE TITER 556555) CYTO. RETICULAR (RAMANDEEP) (test NEGATIVE code = 012116) COMMENTS (test code = 578336) NONE METHOD (test code = 27643) (NOTE) JOSE CARLOS [id number] 00:00:00 Test Item Value Reference Range Interpretation Comments ANTI-NUCLEAR ANTIBODIES (test NEGATIVE code = 3506) JOSE CARLOS PATTERN (REPORTED SEE BELOW TITER) (test code = 26723) HOMOGENEOUS (test code = NEGATIVE TITER 63208) SPECKLED (test code = 256527) NEGATIVE TITER DENSE FINE SPECKLED (test code NEGATIVE TITER = 51962) CENTROMERE (test code = NEGATIVE TITER 637221) COARSE SPECKLED (test code = NEGATIVE TITER 546792) DISCRETE NUCLEAR DOTS (test NEGATIVE TITER code = 722239) NUCLEOLAR (test code = 344523) NEGATIVE TITER NUCLEAR MEMBRANE (test code = NEGATIVE TITER 798537) CYTO. RETICULAR (RAMANDEEP) (test NEGATIVE code = 714012) COMMENTS (test code = 585071) NONE METHOD (test code = 74439) (NOTE) RHEUMATOID FACTOR, [id number] 00:00:00 Test Item Value Reference Range Interpretation Comments RHEUMATOID FACTOR, QUANT (test code 11 IU/ML = 3502) RHEUMATOID FACTOR, [id number] 00:00:00 Test Item Value Reference Range Interpretation Comments RHEUMATOID FACTOR, QUANT (test code 11 IU/ML = 3502) RHEUMATOID FACTOR, [id number] 00:00:00 Test Item Value Reference Range Interpretation Comments RHEUMATOID FACTOR, QUANT (test code 11 IU/ML = 3502) C-REACTIVE [id number] 00:00:00 Test Item Value Reference Range Interpretation Comments C-REACTIVE PROTEIN (test code = 0.5 MG/DL 3513) C-REACTIVE [id number] 00:00:00 Test Item Value Reference Range Interpretation Comments C-REACTIVE PROTEIN (test code = 0.5 MG/DL 3513) SEDIMENTATION [id number] 00:00:00 Test Item Value Reference Range Interpretation Comments SEDIMENTATION RATE (test code = 23 MM/HOUR 1017) SEDIMENTATION [id number] 00:00:00 Test Item Value Reference Range Interpretation Comments SEDIMENTATION RATE (test code = 23 MM/HOUR 1017) CCP [id number] 00:00:00 Test Item Value Reference Range Interpretation Comments CCP IgG (test code = 50144) <0.5 U/ML CCP [id number] 00:00:00 Test Item Value Reference Range Interpretation Comments CCP IgG (test code = 32248) <0.5 U/ML CCP [id number] 00:00:00 Test Item Value Reference Range Interpretation Comments CCP IgG (test code = 19353) <0.5 U/ML COMPREHENSIVE METABOLIC [id number] 00:00:00 Test Item Value Reference Range Interpretation Comments GLUCOSE (test code = 2217) 88 MG/DL BUN (test code = 2208) 14 MG/DL CREATININE (test code = 2214) 0.70 MG/DL eGFR (2020 CKD-EPI) (test 117 ML/MIN/1.73 code = 26372) CALC BUN/CREAT (test code = 20 RATIO [...] code = 2219) 24 U/L COMPREHENSIVE METABOLIC [id number] 00:00:00 Test Item Value Reference Range Interpretation Comments GLUCOSE (test code = 2217) 88 MG/DL BUN (test code = 2208) 14 MG/DL CREATININE (test code = 2214) 0.70 MG/DL eGFR (2020 CKD-EPI) (test 117 ML/MIN/1.73 code = 44225) CALC BUN/CREAT (test code = 20 RATIO [...] CALC GLOBULIN (test code = 2.7 G/DL 0) CALC A/G RATIO (test code = 1.4 RATIO 2234) BILIRUBIN, TOTAL (test code = 0.2 MG/DL 2206) ALKALINE PHOSPHATASE (test 122 U/L code = 2204) AST (test code = 2218) 19 U/L ALT (test code = 2219) 24 U/L [id number] 00:00:00 Test Item Value Reference Range Interpretation Comments TSH, THIRD GENERATION (test code 1.670 UIU/ML = 2821) [id number] 00:00:00 Test Item Value Reference Range Interpretation Comments TSH, THIRD GENERATION (test code 1.670 UIU/ML = 2821) [id number] 00:00:00 Test Item Value Reference Range Interpretation Comments TSH, THIRD GENERATION (test code 1.670 UIU/ML = 2821) LIPID [id number] 00:00:00 Test Item Value Reference Range Interpretation Comments CHOLESTEROL (test code = 2210) 132 MG/DL TRIGLYCERIDES (test code = 2232) 105 MG/DL HDL CHOLESTEROL (test code = 2220) 33 MG/DL CALC LDL CHOL (test code = 2237) 80 MG/DL RISK RATIO LDL/HDL (test code = 2.42 RATIO 2238) LIPID [id number] 00:00:00 Test Item Value Reference Range Interpretation Comments CHOLESTEROL (test code = 2210) 132 MG/DL TRIGLYCERIDES (test code = 2232) 105 MG/DL HDL CHOLESTEROL (test code = 2220) 33 MG/DL CALC LDL CHOL (test code = 2237) 80 MG/DL RISK RATIO LDL/HDL (test code = 2.42 RATIO 2238) RHEUMATOID FACTOR, [id number] 00:00:00 Test Item Value Reference Range Interpretation Comments RHEUMATOID FACTOR, QUANT (test code 11 IU/ML = 3502) RHEUMATOID FACTOR, [id number] 00:00:00 Test Item Value Reference Range Interpretation Comments RHEUMATOID FACTOR, QUANT (test code 11 IU/ML = 3502) RHEUMATOID FACTOR, [id number] 00:00:00 Test Item Value Reference Range Interpretation Comments RHEUMATOID FACTOR, QUANT (test code 11 IU/ML = 3502) C-REACTIVE [id number] 00:00:00 Test Item Value Reference Range Interpretation Comments C-REACTIVE PROTEIN (test code = 0.5 MG/DL 3513) C-REACTIVE [id number] 00:00:00 Test Item Value Reference Range Interpretation Comments C-REACTIVE PROTEIN (test code = 0.5 MG/DL 3513) SEDIMENTATION [id number] 00:00:00 Test Item Value Reference Range Interpretation Comments SEDIMENTATION RATE (test code = 23 MM/HOUR 1017) SEDIMENTATION [id number] 00:00:00 Test Item Value Reference Range Interpretation Comments SEDIMENTATION RATE (test code = 23 MM/HOUR 1017) CCP [id number] 00:00:00 Test Item Value Reference Range Interpretation Comments CCP IgG (test code = 24007) <0.5 U/ML CCP [id number] 00:00:00 Test Item Value Reference Range Interpretation Comments CCP IgG (test code = 70778) <0.5 U/ML CCP [id number] 00:00:00 Test Item Value Reference Range Interpretation Comments CCP IgG (test code = 85940) <0.5 U/ML COMPREHENSIVE METABOLIC [id number] 00:00:00 Test Item Value Reference Range Interpretation Comments GLUCOSE (test code = 2217) 88 MG/DL BUN (test code = 2208) 14 MG/DL CREATININE (test code = 2214) 0.70 MG/DL eGFR (2020 CKD-EPI) (test 117 ML/MIN/1.73 code = 70935) CALC BUN/CREAT (test code = 20 RATIO 2235) SODIUM (test code = 2231) 142 MEQ/L POTASSIUM (test code = 2228) 4.2 MEQ/L CHLORIDE (test code = 2215) 104 MEQ/L CARBON DIOXIDE (test code = 25 MEQ/L 220) CALCIUM (test code = 2209) 9.2 MG/DL [...] code = 2219) 24 U/L COMPREHENSIVE METABOLIC [id number] 00:00:00 Test Item Value Reference Range Interpretation Comments GLUCOSE (test code = 2217) 88 MG/DL BUN (test code = 2208) 14 MG/DL CREATININE (test code = 2214) 0.70 MG/DL eGFR (2020 CKD-EPI) (test 117 ML/MIN/1.73 code = 10261) CALC BUN/CREAT (test code = 20 RATIO [...] ALT (test code = 2219) 24 U/L [id number] 00:00:00 Test Item Value Reference Range Interpretation Comments TSH, THIRD GENERATION (test code 1.670 UIU/ML = 2821) [id number] 00:00:00 Test Item Value Reference Range Interpretation Comments TSH, THIRD GENERATION (test code 1.670 UIU/ML = 2821) [id number] 00:00:00 Test Item Value Reference Range Interpretation Comments TSH, THIRD GENERATION (test code 1.670 UIU/ML = 2821) LIPID [id number] 00:00:00 Test Item Value Reference Range Interpretation Comments CHOLESTEROL (test code = 2210) 132 MG/DL TRIGLYCERIDES (test code = 2232) 105 MG/DL HDL CHOLESTEROL (test code = 2220) 33 MG/DL CALC LDL CHOL (test code = 2237) 80 MG/DL RISK RATIO LDL/HDL (test code = 2.42 RATIO 2238) LIPID [id number] 00:00:00 Test Item Value Reference Range Interpretation Comments CHOLESTEROL (test code = 2210) 132 MG/DL TRIGLYCERIDES (test code = 2232) 105 MG/DL HDL CHOLESTEROL (test code = 2220) 33 MG/DL CALC LDL CHOL (test code = 2237) 80 MG/DL RISK RATIO LDL/HDL (test code = 2.42 RATIO 2238) DRUGS OF ABUSE SCREEN [id number] 22:06:00 Test Item Value Reference Range Interpretation [...] (test code = TRICYCU) Neg NEGATIVE HCG [id number] 22:02:00 Test Item Value Reference Range Interpretation [...] after 48 hours toconfirm . URINALYSIS DIPSTICK [id number] 21:55:00 Test Item Value Reference Range Interpretation [...] code = LEUU) - XR CHEST 1 [id number] 21:55:00 [facility] : 1990 Sex: FPatient Name: CAROLINE DURAND Unit No: [id number] EXAMS: CPT: [id number] XR CHEST 1 V 65700 PA CHEST, 03/26/2022. Comparison: None. CLINICAL: Chest [...] (2157) BATCH NO: N/A Name: CAROLINE DURAND [facility] Emergency Dept Phys: [place] [address] [facility] [facility] 1990 Age: 31 Sex: F [place] [address] Loc: DOUG Exam Date: 03/26/2022 Status: PRE ER PH: [phone] FAX: PAGE 1 Signed ReportCBC W/AUTO [id number] 21:50:00 Test Item Value Reference Range Interpretation [...] 0.9 10e3/mm3 0.2-1.1 N MX#) TROPONIN I [id number] 21:49:00 Test Item Value Reference Range Interpretation [...] if similar methodology is used. CHEMISTRY 8 [id number] 21:48:00 Test Item Value Reference Range Interpretation [...]
[2022-10-20] MEDS ORDERED: MORPHINE 4 MG/ML SYR ONE (22:38)
[2022-10-20] MEDS ORDERED: NA CHLORIDE 0.9% 1,000 ML ONE (22:39)
[2022-10-20] MEDS ORDERED: ONDANSETRON 4 MG/2 ML VIAL ONE (22:39)
[2022-10-20 23:06] LABS: Absolute Lymphocytes (CBC) 3.2 K/uL (0.7-4.9); Hematocrit 35.1 % (36.0-45.0); Lymphocytes % 26.7 % (15.3-44.8); MPV 7.7 fL (7.6-11.3); RBC Red Blood Cell Count 3.94 M/uL (3.86-4.86)
[2022-10-20 23:21] LABS: Albumin 3.5 g/dL (3.4-5.0); Bilirubin Total 0.3 mg/dL (0.2-1.0); Potassium 3.4 mmol/L (3.5-5.1); Protein, Total 7.2 g/dL (6.4-8.2)
[2022-10-20] MEDS ORDERED: FENTANYL CITR 100 MCG/2 ML ONE (23:21)
[2022-10-21 00:27] LABS: Urine Blood Negative (Negative); Urine Glucose Negative (Negative); Urine Protein Negative (Negative); Urine pH 5.5 (5.0-7.0)
--- NOTE | 2022-10-21 00:48 | ER ---
Nurse's Notes [facility] Name: Erica Tucker Age: 32 yrs Sex: Female : 1990 Arrival Date: 10/20/2022 Time: 22:13 Bed 5 Private MD: Diagnosis: Lower abdominal pain, unspecified Presentation: 10/20 22:19 Chief complaint: Had appendectomy by Dr. Garcia Saturday, devyn felt a stabbing pain hb and pop near her incision then sudden sever pain int RLQ. Pt instructed by Dr. Garcia to come to ED. Coronavirus screen: At this time, the client does not indicate any symptoms associated with coronavirus-19. Ebola Screen: No symptoms or risks identified at this time. Initial Sepsis Screen: Does the patient meet any 2 criteria? No. Patient's initial sepsis screen is negative. Does the patient have a suspected source of infection? No. Patient's initial sepsis screen is negative. Risk Assessment: Do you want to hurt yourself or someone else? Patient reports no desire to harm self or others. Onset of symptoms was October 20, 2022. 22:19 Method Of Arrival: Wheelchair hb 22:19 Acuity: NANCY 2 hb Historical: - Allergies: 22:20 PENICILLINS; hb 22:20 Phenergan; hb - PMHx: 22:20 Atrial fibrillation; Cerebrovascular accident; depressive disorder; hb Hypercholesterolemia; Hypothyroidism; pseudotumor cerebri; TIA; - PSHx: 22:20 Myringotomy and insertion of tympanic ventilation tube; [place] teeth extraction; hb - Immunization history:: Adult Immunizations up to date. - Social history:: Smoking status: . Screenin:45 [facility] ED Fall Risk Assessment (Adult) History of falling in the last 3 months, aa9 including since admission No falls in past 3 months (0 pts). Humpty Dumpty Scale Fall Assessment Tool (age< 18yrs) Age 13 years and above (1 pt) Gender Female (1 pt) Diagnosis Other diagnosis (1 pt) Cognitive Impairments Oriented to own ability (1 pt) Environmental Factors Outpatient area (1 pt) Response to Surgery/Sedation/Anesthesia More than 48 hours/ None (1 pt). Abuse screen: Denies threats or abuse. Denies injuries from another. Nutritional screening: Has had N/V for 3 or more days. Tuberculosis screening: No symptoms or risk factors identified. Fall Risk No fall in past 12 months (0 pts). Assessment: 22:59 General: Appears uncomfortable, obese, Behavior is cooperative, appropriate for age, aa9 anxious. Pain: Complains of pain in suprapubic area, right lower quadrant and left lower quadrant Pain currently is 9 out of 10 on a pain scale. Aggravated by increased activity, repositioning, weight bearing, Noted to be grimacing, guarding, moaning, resistant to movement, Also complains of nausea. Neuro: Level of Consciousness is awake, alert, obeys commands, Oriented to person, place, time, situation. Cardiovascular: Patient's skin is warm and dry. Respiratory: Airway is patent Respiratory effort is even, unlabored. GI: Reports nausea. : No signs and/or symptoms were reported regarding the genitourinary system. Vital Signs: 22:19 BP 105 / 90; Pulse 111; Resp 16; Temp 98.2; Pulse Ox 100% on R/A; Weight 127.01 kg; hb Height 5 ft. 7 in. (170.18 cm); Pain 9/10; 23:00 BP 133 / 84; Pulse 96; Resp 22 S; Pulse Ox 100% on R/A; aa9 23:44 BP 116 / 61; Pulse 89; Resp 19; Pulse Ox 100% on R/A; aa9 12 00:54 BP 117 / 90; Pulse 87; Resp 19 S; Pulse Ox 98% on R/A; aa9 10/20 22:19 Body Mass Index 43.85 (127.01 kg, 170.18 cm) ED Course: 10/20 22:13 Patient arrived in ED. ja2 22:14 Jessica Amado FNP-C is PHCP. kb 22:14 Ajay Sarkar MD is Attending Physician. kb 22:20 Triage completed. hb 22:21 Arm band placed on. hb 22:37 Wendy Chambers, FANTASMA is Primary Nurse. aa9 22:55 Inserted saline lock: 20 gauge in left antecubital area, using aseptic technique. Blood aa9 collected. 22:58 CBC with Diff Sent. aa9 22:58 CMP Sent. aa9 22:58 Lipase Sent. aa9 23:45 Patient has correct armband on for positive identification. Placed in gown. Bed in low aa9 position. Call light in reach. Side rails up X2. Door closed. Noise minimized. Warm blanket given. 23:46 No provider procedures requiring assistance completed. aa9 10/21 00:06 CT Abd/Pelvis - IV Contrast Only In Process Unspecified. EDMS 00:47 Bill Garcia MD is Referral Physician. kb 01:05 IV discontinued, intact, bleeding controlled, No redness/swelling at site. Pressure aa9 dressing applied. Administered Medications: 10/20 22:58 Drug: NS 0.9% 1000 ml Route: IV; Rate: 1000 ml; Site: right antecubital; aa9 22:58 Drug: morphine 4 mg Route: IVP; Infused Over: 4 mins; Site: right antecubital; aa9 23:22 Follow up: Response: No adverse reaction; Pain is unchanged, physician notified aa9 22:58 Drug: Zofran (Ondansetron) 4 mg Route: IVP; Site: right antecubital; aa9 23:23 Follow up: Response: No adverse reaction aa9 23:22 Drug: fentaNYL (PF) 50 mcg Route: IVP; Site: left antecubital; aa9 23:42 Follow up: Response: No adverse reaction; Pain is unchanged, physician notified aa9 23:40 Drug: fentaNYL (PF) 50 mcg Route: IVP; Site: left antecubital; aa9 10/21 01:05 Follow up: Response: No adverse reaction aa9 01:05 Drug: fentaNYL (PF) 50 mcg Route: IVP; Site: left antecubital; aa9 01:05 Follow up: Response: No adverse reaction aa9 Medication: 10/20 23:45 VIS not applicable for this client. aa9 Outcome: 10/21 00:48 Discharge ordered by . kb 01:05 Discharged to home ambulatory. aa9 01:05 Condition: stable 01:05 Discharge instructions given to patient, Instructed on discharge instructions, follow up and referral plans. Demonstrated understanding of instructions, follow-up care. 01:06 Patient left the ED. aa9 Signatures: Dispatcher [employer] EDNJ Jessica Amado, YUNIORC HAYDEE-Kalie King RN RN Inga Lira Wendy Chambers, FANTASMA RN aa9
--- NOTE | 2022-10-21 00:48 | EDPHYS ---
Physician Documentation [facility] Name: Erica Tucker Age: 32 yrs Sex: Female : 1990 Arrival Date: 10/20/2022 Time: 22:13 Bed 5 Private MD: MALORIE Physician Ajay Sarkar HPI: 10/20 23:38 This 32 yrs old Female presents to ER via Wheelchair with complaints of Post Surgical kb Pain, Fever. 23:38 The patient presents with abdominal pain right lower quadrant. Onset: The kb symptoms/episode began/occurred just prior to arrival. The symptoms do not radiate. Associated signs and symptoms: none. The symptoms are described as sharp. Modifying factors: The symptoms are alleviated by nothing, the symptoms are aggravated by pressure. Severity of pain: At its worst the pain was moderate in the emergency department the pain is unchanged. The patient has not experienced similar symptoms in the past. The patient has been recently seen by a physician:. Pt reports she recently had laproscopic appendectomy. Today she felt a pop and sharp pain to RLQ, called Dr Garcia's chemistry research assistant and was told to come to the ER for evaluation. . Historical: - Allergies: 22:20 PENICILLINS; hb 22:20 Phenergan; hb - PMHx: 22:20 Atrial fibrillation; Cerebrovascular accident; depressive disorder; hb Hypercholesterolemia; Hypothyroidism; pseudotumor cerebri; TIA; - PSHx: 22:20 Myringotomy and insertion of tympanic ventilation tube; [place] teeth extraction; hb - Immunization history:: Adult Immunizations up to date. - Social history:: Smoking status: . ROS: 23:36 Constitutional: Negative for fever, chills, and weight loss. kb 23:36 Abdomen/GI: Positive for abdominal pain, Negative for nausea, vomiting, and diarrhea. 23:36 All other systems are negative. Exam: 23:37 Constitutional: This is a well developed, well nourished patient who is awake, alert, kb and in no acute distress. Head/Face: Normocephalic, atraumatic. ENT: Moist Mucous membranes Cardiovascular: Regular rate and rhythm with a normal S1 and S2. No gallops, murmurs, or rubs. No pulse deficits. Respiratory: Respirations even and unlabored. No increased work of breathing. Talking in full sentences Skin: Warm, dry with normal turgor. Normal color. MS/ Extremity: Pulses equal, no cyanosis. Neurovascular intact. Full, normal range of motion. Neuro: Awake and alert, GCS 15, oriented to person, place, time, and situation. Moves all extremities. Normal gait. 23:37 Abdomen/GI: Inspection: post surgical incisions with baylee intact, no redness, swelling , Bowel sounds: normal, Palpation: soft, in all quadrants, moderate abdominal tenderness, in the right lower quadrant. Vital Signs: 22:19 BP 105 / 90; Pulse 111; Resp 16; Temp 98.2; Pulse Ox 100% on R/A; Weight 127.01 kg; hb Height 5 ft. 7 in. (170.18 cm); Pain 9/10; 23:00 BP 133 / 84; Pulse 96; Resp 22 S; Pulse Ox 100% on R/A; aa9 23:44 BP 116 / 61; Pulse 89; Resp 19; Pulse Ox 100% on R/A; aa9 10/21 00:54 BP 117 / 90; Pulse 87; Resp 19 S; Pulse Ox 98% on R/A; aa9 10/20 22:19 Body Mass Index 43.85 (127.01 kg, 170.18 cm) hb MDM: 10/20 22:22 Patient medically screened. kb 23:35 Data reviewed: vital signs, nurses notes. Data interpreted: Pulse oximetry: on room air kb is 100 %. Interpretation: normal. 10/21 00:47 Counseling: I had a detailed discussion with the patient and/or guardian regarding: the kb historical points, exam findings, and any diagnostic results supporting the discharge/admit diagnosis, lab results, radiology results, the need for outpatient follow up, a general surgeon, to return to the emergency department if symptoms worsen or persist or if there are any questions or concerns that arise at home. Physician consultation: Bill Garcia MD was contacted at 00:47, regarding consult, patient's condition, and will see patient in office. 00:47 ED course: Pt has appt scheduled for Saturday with Dr Garcia. kb 10/20 22:23 Order name: CBC with Diff; Complete Time: 23:15 kb 10/20 22:23 Order name: CMP; Complete Time: 23:22 kb 10/20 22:23 Order name: Lipase; Complete Time: 23:22 kb 10/20 22:23 Order name: CT Abd/Pelvis - IV Contrast Only kb 10/21 00:27 Order name: Urine Dipstick-Ancillary; Complete Time: 00:28 EDMS 10/21 00:29 Order name: Urine --Ancillary (enter results); Complete Time: 00:34 wm 10/20 22:23 Order name: IV Saline Lock; Complete Time: 22:58 kb 10/20 22:23 Order name: Labs collected and sent; Complete Time: 22:58 kb Administered Medications: 10/20 22:58 Drug: NS 0.9% 1000 ml Route: IV; Rate: 1000 ml; Site: right antecubital; aa9 22:58 Drug: morphine 4 mg Route: IVP; Infused Over: 4 mins; Site: right antecubital; aa9 23:22 Follow up: Response: No adverse reaction; Pain is unchanged, physician notified aa9 22:58 Drug: Zofran (Ondansetron) 4 mg Route: IVP; Site: right antecubital; aa9 23:23 Follow up: Response: No adverse reaction aa9 23:22 Drug: fentaNYL (PF) 50 mcg Route: IVP; Site: left antecubital; aa9 23:42 Follow up: Response: No adverse reaction; Pain is unchanged, physician notified aa9 23:40 Drug: fentaNYL (PF) 50 mcg Route: IVP; Site: left antecubital; aa9 10/21 01:05 Follow up: Response: No adverse reaction aa9 01:05 Drug: fentaNYL (PF) 50 mcg Route: IVP; Site: left antecubital; aa9 01:05 Follow up: Response: No adverse reaction aa9 Disposition Summary: 10/21/22 00:48 Discharge Ordered Location: Home kb Condition: Stable kb Diagnosis - Lower abdominal pain, unspecified kb Followup: kb - With: Emergency Department - When: As needed - Reason: Worsening of condition Followup: kb - With: Bill Garcia MD - When: 1 - 2 days - Reason: Recheck today's complaints Discharge Instructions: - Discharge Summary Sheet kb - Abdominal Pain, Adult, [id number] kb Forms: - Medication Reconciliation Form kb - Thank You Letter kb - Antibiotic Education kb - Prescription Opioid Use kb Signatures: Dispatcher [employer] EDMS Jessica Amado, FORESTRY PILOT-C FORESTRY PILOT-Ckb Kalie Hill, RN RN hb Wendy Chambers, RN RN aa9
[2022-10-21] MEDS ORDERED: FENTANYL CITR 100 MCG/2 ML ONE (00:58)
[2022-10-21 01:28] VITALS: TEMP 98.2
[2022-10-21 01:31] VITALS: BP 117/90; O2SAT 98
[2022-10-22] MEDS ORDERED: MORPHINE 4 MG/ML SYR ONE (01:38)
[2022-10-22] MEDS ORDERED: ONDANSETRON 4 MG/2 ML VIAL ONE (01:39)
[2022-10-22] MEDS ORDERED: METRONIDAZOLE 500mg IVPB 500 MG/100 ML BAG IV ONE (02:25)
[2022-10-22] MEDS ORDERED: CIPROFLOXACIN 400mg IV 400 MG/200 ML BAG IV ONE (02:25)
--- NOTE | 2022-10-22 09:44 | RAD REPORT ---
EXAM DESCRIPTION: CT - Abdomen Pelvis W Contrast - 10/21/2022 6:08 am CLINICAL HISTORY: The patient is 32 years old and is Female; post surgical pain TECHNIQUE: Axial computed tomography images of the abdomen and pelvis with intravenous contrast. S agittal and coronal reformatted images were created and reviewed. This CT exam was performed using one or more of the following dose reduction techniques: automated exposure control, adjustment of t he mA and/or kV according to patient size, and/or use of iterative reconstruction technique. COMPARISON: No relevant prior studies available. FINDINGS: Lung bases: Unremarkable. No mass. No consolidation. ABDOMEN: Liver: Unremarkable. No mass. Gallbladder and bile ducts: Gallbladder is contracted. No calcified stones. No ductal dilation. Pancreas: Unremarkable. No mass. No ductal dilation. Spleen: Mild splenomegaly. Adrenals: Unremarkable. No mass. Kidneys and ureters: Simple cysts in the right kidney. ACR White Paper guidelines (Heralcon, et al. JACR 2018; 15(2):264-273) suggest no follow-up is necessary. No hydronephrosis. Stomach and bowel: Unremarkable. No obstruction. No mucosal thickening. PELVIS: Appendix: No findings to suggest acute appendicitis. Bladder: Unremarkable. Reproductive: Unremarkable as visualized. ABDOMEN and PELVIS: Intraperitoneal space: Unremarkable. No free air. No significant fluid collection. Bones/joints: No acute fracture. No dislocation. Soft tissues: Mild periumbilical subcutaneous stranding. Vasculature: Unremarkable. No abdominal aortic aneurysm. Lymph nodes: Unremarkable. No enlarged lymph nodes. Other findings: Postsurgical changes in the right lower quadrant. IMPRESSION: No acute finding in the abdomen/pelvis. Electronically signed by: Jayson Ghosh MD 10/21/2022 12:28 AM BAND HEAD SAW OPERATOR Due to temporary technical issues with the PACS/Fluency reporting system, reports are being signed by the in house radiologists without review as a courtesy to insure prompt reporting. The interpreting radiologist is fully responsible for the content of the report.
== END 2022-10-21 01:06 | disposition home or self-care (01) ==
LOC: ER 22:09
DX: R10.31 Right lower quadrant pain (principal); Z98.890 Other specified postprocedural states; Z88.0 Allergy status to penicillin; Z88.8 Allergy status to other drugs, medicaments and biological substances
CPT/HCPCS: 85025; 36415; 81025; 81003; 83690; 80053; 74177; 99284; Q9967; J3010 ×2; J7030; J2405

== ENCOUNTER 2022-10-25 17:50 | Emergency (ER) | payer OTHER ==
--- OUTSIDE RECORDS SUMMARY | 2022-10-25 17:58 | XMS REPORT | Continuity of Care Document ---
:1990 Author Organization [facility] t Address [address] [place] [address] [address] [place] [address] Care Team Providers Name Role Phone Tammy Solo Primary Care Physician [phone] DORIS PAUL Attending Clinician Unavailable [facility] Neurology Resident Attending Clinician UnaDoris Baird MD Attending Clinician Laura Colvin RN Attending Clinician Unavailable Doctor Unassigned, [place] Attending Clinician Unavailable Donny Noel MD Attending Clinician Rich Newton MD Attending Clinician ROSYS RUANO Attending Clinician Unavailable Rossy Ruano MD Attending Clinician [phone] Oscar PENALOZA Attending Clinician Unavailable Oscar Narvaez Attending Clinician MARYSOL GERARD Attending Clinician Unavailable Steve Abdi MD Attending Clinician Jass Mcnamara MD Attending Clinician Marysol Gerard MD Attending Clinician JONATAN KEMP Attending Clinician Unavailable FRANCESCO ADAM Attending Clinician Unavailable DORIS STOVALL Attending Clinician Unavailable Sean Mckeon Attending Clinician SEAN BASS Attending [...] Policy Number Effective Date Expiration Date S [facility] EXCHANGE [id number] 2022 00:00:00 Problems Condition Condition Condition Status Onset Resolution Last Treating Co mments Source Name Details Category Date Date Treatment Clinician Date Chest pain Chest pain Disease Active 2021-11 M ethodi in adult in adult [address] [facility] 00:00: [facility] 00 l Shortness Shortness Disease Active 2021-[address] [facility] [address] [facility] breath of breath 1-14 Luke s 00:00: [place] [id number] Center Kidney Kidney Disease Active 2020-11 Univers stone stone 2-16 ity of 00:00: [place] 00 Medical Branch Morbid Morbid Disease Active 2020-11 Univers obesity obesity 2-16 ity of 00:00: [place] 00 [facility] Obstructiv Obstructiv Disease Active 2020-11 U nivers e sleep e sleep 2-16 ity of apnea apnea 00:00: [place] 00 [facility] Cerebrovas Cerebrovas Disease Active 2019- U nivers cular cular 1-05 ity of accident accident 00:00: [place] (CVA) (CVA) 00 Medical [place] Transient Transient Disease Active 2019- Uni vers ischemic ischemic 1-05 ity of attack attack 00:00: [place] 00 [facility] Hyperlipid Hyperlipid Disease Active 2019-0 U nivers emia emia 2-21 ity of [...] 3-17 it y of disorder disorder 00:00: [place] 00 Medical Branch Allergies, Adverse Reactions, Alerts [...] 11-29 [facility] adverse 00:00: Medical reaction 00 [place] s PENICILL DRUG Active Hives 2021-11 Univers IN INGREDI 1- ity of 00:00: [place] 00 Medical Branch Penicill Propensi Active Hives 2021-11 Univer s in ty to 1-21 ity of adverse 00:00: [place] reaction 00 [...] DA Active [facility] ins 03-26 [place] 00:00: [facility] 00 [facility] [place] prometha DA Active [facility] zine 03-26 [place] 00:00: Health 00 [place] PREDNISO DRUG Active Palpitations Un eddie NE INGREDI 4-04 ity of 00:00: [place] 00 Medical Branch PROMETHA DRUG Active Other-Cmnt Univ ers ZINE INGREDI 4-04 ity of 00:00: [place] 00 Medical Branch Predniso Drug Active Palpitations Un eddie ne Allergy 4-04 ity of 00:00: [place] 00 Medical Branch Prometha Drug Active Other - See Restless U nivers zine Allergy comments 4-04 legs ity of 00:00: [place] 00 Medical Branch Social History Social Habit [...] Smoker [facility] tobacco use 00:00:00 [facility] Sex Assigned At [address] [facility] 00:00:00 00:00:00 [facility] Smoking Status Start Date Stop Date Source Tobacco smoking [facility] consumption unknown Former smoker 2022-09-17 00:00:00 2022-09-[address] [facility] 00:[facility]00 Center Medications Ordered Filled Start Stop Current Ordering Indication Dosage Frequency Signature Comments Components Source Medication Medication Date Date Medication? Clinician (SIG) Name Name Dose 2021-11 No Unknown 2-13 00:00: 00 TAKE 1 2021-11 No TABLET BY 2-13 MOUTH EVERY 00:00: 24 HOURS 00 FOR 7 DAYS Dose 2021-11 No Unknown 2-13 00:00: 00 GABAPENTIN 2021-11 No 300 MG CAPS 2-13 00:00: 00 TAKE 1 2021- No TABLET BY 2-13 MOUTH TWICE 00:00: DAILY 00 TAKE ONE 2021- No (1) 2-13 TABLET(S) 00:00: BY MOUTH 00 TWICE A DAY. TAKE 1 2021-1 No TABLET BY 2-13 MOUTH NOW 00:00: 00 TAKE 1 2021- No TABLET BY 2-13 MOUTH EVERY 00:00: 6 HOURS 00 WITH FOOD OR MILK FOR 5 DAYS NEEDED TAKE ONE 2021- No CAPSULE BY 2-13 MOUTH EVERY 00:00: MORNING 00 TAKE 1 2021- No TABLET BY 2-13 MOUTH THREE 00:00: TIMES DAILY 00 NEEDED FOR ANXIETY Dose 2021- No Unknown 2-13 00:00: 00 TAKE 2 2021- No TABLETS BY 2-13 MOUTH FOUR 00:00: TIMES DAILY 00 NEEDED FOR HEADACHE TAKE ONE 2021- No (1) 2-13 CAPSULE(S) 00:00: BY MOUTH 00 EVERY MORNING AND TAKE TWO (2) CAPSULES EVERY NIGHT. TAKE ONE 2021- No (1) TABLET 2-13 BY MOUTH IN 00:00: THE 00 MORNING. TAKE ONE 2021- No (1) 2-13 TABLET(S) 00:00: BY MOUTH 00 ONCE A DAY IN THE MORNING. TAKE 2 2021- No TABLET BY 2-13 MOUTH IN 00:00: THE MORNING 00 AND 1 TABLET BY MOUTH AT DINNER TAKE ONE 2021- No (1) 2-13 TABLET(S) 00:00: BY MOUTH 00 TWICE A DAY. Dose 2021- No Unknown 2-13 00:00: 00 Dose 2021- No Unknown 2-13 00:00: 00 TAKE ONE 2021- No (1) 2-13 TABLET(S) 00:00: BY MOUTH IN 00 THE MORNING AND TWO (2) TABLETS AT BEDTIME. TAKE 1 2021- No TABLET BY 2-13 MOUTH EVERY 00:00: DAY 00 TAKE 1 TAB 2021- No Q12H X 5 2-13 DAYS 00:00: 00 AZITHROMYCI 2021- No N 250MG 2-13 TABLETS 00:00: 6-HANNAH 00 TAKE 1 2021- No TABLET BY 2-13 MOUTH TWICE 00:00: DAILY 00 Dose 2021- No Unknown 2-13 00:00: 00 FUROSEMIDE 2021- No 20 MG TABS 2-13 00:00: 00 TAKE 2021-11 No TABLET BY 2-13 MOUTH EVERY 00:00: NIGHT AT 00 BEDTIME FOR 10 DAYS NEEDED Dose 2021-11 No Unknown 2-13 00:00: 00 Dose 2021-11 No Unknown 2-13 00:00: 00 TAKE 2021-11 No CAPSULE BY 2-13 MOUTH EVERY 00:00: 6 HOURS 00 NEEDED Dose 2021-11 No Unknown 2-13 00:00: 00 TAKE 1 2021-11 No TABLET AT 2-13 BEDTIME. 00:00: [...] l tablet daily. gabapentin 2021-11 Yes 300mg Q.[id number] Take 1 [facility] (NEURONTIN) 2-[id number] 300 mg 17:25: 3D (300 [...] l tablet daily. gabapentin 2021-11 Yes 300mg Q.[id number] Take 1 [facility] (NEURONTIN) 2-[id number] 300 mg 17:25: 3D (300 [...] l tablet daily. gabapentin 2021-11 Yes 300mg Q.[id number] Take 1 [facility] (NEURONTIN) 2-[id number] 300 mg 17:25: 3D (300 [...] l tablet daily. gabapentin 2021-11 Yes 300mg Q.[id number] Take 1 [facility] (NEURONTIN) 2-[id number] 300 mg 17:25: 3D (300 [...] l tablet daily. gabapentin 2021-11 Yes 300mg Q.[id number] Take 1 [facility] (NEURONTIN) 12-[id number] 300 mg 17:25: 3D (300 mg Hospita capsule 07 total) by l mouth 3 (three) times a day. acetaZOLAMI 2021-11 No 500mg QD Take 1 [facility] (DIAMOX) 12-[address] 500 mg 17:25: 00:00 (500 mg Hospita capsule 07 :00 total) by l mouth daily. acetaZOLAMI 2021-11 No 500mg QD Take 1 [facility] (DIAMOX) 12-[address] 500 mg 17:25: 00:00 (500 mg Hospita capsule 07 :00 total) by l mouth daily. acetaZOLAMI 2021-11 No 500mg QD Take 1 [facility] (DIAMOX) 12-[address] 500 mg 17:25: 00:00 (500 mg Hospita capsule 07 :00 total) by l mouth daily. acetaZOLAMI 2021-11 No 500mg QD Take 1 [facility] (DIAMOX) 12-[address] 500 mg 17:25: 00:00 (500 mg Hospita capsule 07 :00 total) by l mouth daily. acetaZOLAMI 2021-11 No 500mg QD Take 1 [facility] (DIAMOX) 12-[address] 500 mg 17:25: 00:00 (500 mg Hospita capsule 07 :00 total) by l mouth daily. methylpredn 2021-11 No 125mg 125 mg, U nivers isolone sod 11-25 Slow IV ity of succ 03:15: 02:40 [place], [place] (SOLU-MEDRO 00 :00 ONCE, 1 Medic al L) dose, On Branch injection Mon 125 mg 09/24/22 at 2115, SCAR predniSONE 2021-11- Yes [id number] 10mg Take 1 U nivers 10 mg 11-24 tablet by ity of tablet 00:00: 05:59 mouth in [place] 00 :00 the Medical morning Branch and 1 tablet in the evening. Do all this for 4 days. QUEtiapine 2021-11 Yes 200mg QD Take [address] (SEROquel) 1-17 mg by [facility] 200 MG 17:05: mouth Medical tablet 04 nightly. [place] FLUoxetine 2021-11 Yes 40mg QD Take [address] (PROzac) 40 1-17 by mouth Luke [facility] MG capsule 17:05: daily. Medic al 04 [place] levothyroxi 2021-11 Yes 50ug Take 50 [facility] [...] MG 17:05: mouth Medical tablet 04 nightly. [place] FLUoxetine 2021-11 Yes 40mg QD Take [address] (PROzac) 40 1-17 by mouth Luke [facility] MG capsule 17:05: daily. Medic al 04 [place] levothyroxi 2021-11 Yes 50ug Take 50 [facility] [...] MG 17:05: mouth Medical tablet 04 nightly. [place] FLUoxetine 2021-11 Yes 40mg QD Take [address] (PROzac) 40 1-17 by mouth Luke s MG capsule 17:05: daily. Medic al 04 [place] levothyroxi 2021-11 Yes 50ug Take 50 [facility] [...] MG 17:05: mouth Medical tablet 04 nightly. [place] FLUoxetine 2021-11 Yes 40mg QD Take 40 [...] MG 17:05: mouth Medical tablet 04 nightly. [place] FLUoxetine 2021-11 Yes 40mg QD Take [address] (PROzac) 40 1-17 by mouth Luke s MG capsule 17:05: daily. Medic al 04 [place] levothyroxi 2021-11 Yes 50ug Take 50 [facility] [...] MG 17:05: mouth Medical tablet 04 nightly. [place] FLUoxetine 2021-11 Yes 40mg QD Take [address] (PROzac) 40 1-17 by mouth Luke s MG capsule 17:05: daily. Medic al 04 [place] levothyroxi 2021-11 Yes 50ug Take 50 [facility] [...] MG 17:05: mouth Medical tablet 04 nightly. [place] FLUoxetine 2021-11 Yes 40mg QD Take 40 [...] MG 17:05: mouth Medical tablet 04 nightly. [place] FLUoxetine 2021-11 Yes 40mg QD Take 40 [...] Medic al 40 MG 04 Center tablet lamoTRIgine 2021-11 No 50mg QD Take [address] (LaMICtal) 11-20 by mouth Luke s 25 MG 17:05: 00:00 daily. Medical tablet 04 :00 [place] gabapentin 2021-11 No 300mg Q.[id number] Take [address] (NEURONTIN) 11-20 [id number] mg by [facility] 300 MG 17:05: 00:00 3D mouth 3 Medical capsule 04 :00 (three) Center times daily. apixaban 2021-11- No 5mg QD Take [address] (Eliquis) 5 11-2016 by mouth Sudhakar es mg Tab 17:05: 00:00 daily. Medical tablet 04 :00 [place] atorvastati 2021-11- No 10mg QD Take [address] n (LIPITOR) 11-20 by mouth Sudhakar es 10 MG 17:05: 00:00 daily. Medical tablet 04 :00 [place] atorvastati 2021-11- No 10mg QD Take [address] n (LIPITOR) 11-20 by mouth Sudhakar es 10 MG 17:05: 00:00 daily. Medical tablet 04 :00 [place] lamoTRIgine 2021-11 No 50mg QD Take [address] (LaMICtal) 11-20 by mouth Luke [facility] 25 MG 17:05: 00:00 daily. Medical tablet 04 :00 [place] gabapentin 2021-11- No 300mg Q.[id number] Take [address] (NEURONTIN) 11-20 [id number] mg by [facility] 300 MG 17:05: 00:00 3D mouth 3 Medical capsule 04 :00 (three) Center times daily. apixaban 2021-11 No 5mg QD Take [address] [facility] [address] (Eliquis) 5 11-20 by mouth [facility]ak[place] es mg Tab 17:05: 00:00 daily. Medical tablet 04 :00 [place] atorvastati 2021-11- No 10mg QD Take [address] [facility] n (LIPITOR) 11-20 by mouth Sudhakar es 10 MG 17:05: 00:00 daily. Medical tablet 04 :00 [place] lamoTRIgine 2021-11- No 50mg QD Take [address] (LaMICtal) 11-20 by mouth Luke s 25 MG 17:05: 00:00 daily. Medical tablet 04 :00 [place] gabapentin 2021-11- No 300mg Q.[id number] Take [address] (NEURONTIN) 11-20 [id number] mg by [facility] 300 MG 17:05: 00:00 3D mouth 3 Medical capsule 04 :00 (three) Center times daily. apixaban 2021-11- No 5mg QD Take [address] [facility] [address] (Eliquis) 5 11-2016 by mouth [place]hak[place] es mg Tab 17:05: 00:00 daily. Medical tablet 04 :00 [place] atorvastati 2021-11- No 10mg QD Take [address] [facility] [facility] n (LIPITOR) 11-2016 by mouth Sudhakar es 10 MG 17:05: 00:00 daily. Medical tablet 04 :00 [place] lamoTRIgine 2021-11 No 50mg QD Take [address] [facility] (LaMICtal) 11-20 by mouth Luke s 25 MG 17:05: 00:00 daily. Medical tablet 04 :00 [place] gabapentin 2021-11- No 300mg Q.[id number] Take [address] (NEURONTIN) 11-20 [id number] mg by [facility] 300 MG 17:05: 00:00 3D mouth 3 Medical capsule 04 :00 (three) Center times daily. apixaban 2021-11 No 5mg QD Take [address] [facility] [address] (Eliquis) 5 11-20 by mouth [facility] es mg Tab 17:05: 00:00 daily. Medical tablet 04 :00 [place] atorvastati 2021-11- No 10mg QD Take [address] [facility] n (LIPITOR) 11-20 by mouth Sudhakar es 10 MG 17:05: 00:00 daily. Medical tablet 04 :00 [place] lamoTRIgine 2021-11- No 50mg QD Take [address] (LaMICtal) 11-20 by mouth Luke s 25 MG 17:05: 00:00 daily. Medical tablet 04 :00 [place] gabapentin 2021-11- No 300mg Q.[id number] Take [address] (NEURONTIN) 11-20 [id number] mg by [facility] 300 MG 17:05: 00:00 3D mouth 3 Medical capsule 04 :00 (three) Center times daily. apixaban 2021-11- No 5mg QD Take [address] [facility] [address] (Eliquis) 5 11-20-16 by mouth Sud[facility]ak[place] es mg Tab 17:05: 00:00 daily. Medical tablet 04 :00 [place] atorvastati 2021-11- No 10mg QD Take [address] [facility] n (LIPITOR) 11-20-16 by mouth Sudhakar es 10 MG 17:05: 00:00 daily. Medical tablet 04 :00 [place] lamoTRIgine 2021-11- No 50mg QD Take [address] [facility] (LaMICtal) 11-20-16 by mouth Luke s 25 MG 17:05: 00:00 daily. Medical tablet 04 :00 [place] gabapentin 2021-11- No 300mg Q.[id number] Take [address] (NEURONTIN) 11-20-16 [id number] mg by [facility] 300 MG 17:05: 00:00 3D mouth 3 Medical capsule 04 :00 (three) Center times daily. apixaban 2021-11 No 5mg QD Take [address] [facility] [address] (Eliquis) 5 11-20-16 by mouth Sud[place]ak[place] es mg Tab 17:05: 00:00 daily. Medical tablet 04 :00 [place] atorvastati 2021-11- No 10mg QD Take [address] [facility] [facility] n (LIPITOR) 11-20-16 by mouth Sudhakar es 10 MG 17:05: 00:00 daily. Medical tablet 04 :00 [place] lamoTRIgine 2021-11 No 50mg QD Take [address] [facility] [address] (LaMICtal) 11-20-16 by mouth Luke s 25 MG 17:05: 00:00 daily. Medical tablet 04 :00 [place] gabapentin 2021-11- No 300mg Q.[id number] Take [address] (NEURONTIN) 11-20-16 [id number] mg by [facility] 300 MG 17:05: 00:00 3D mouth 3 Medical capsule 04 :00 (three) Center times daily. apixaban 2021-11- No 5mg QD Take [address] [facility] (Eliquis) 5 -20 09-16 by mouth Sud[place]ak[place] es mg Tab 17:05: 00:00 daily. Medical tablet 04 :00 [place] atorvastati 2021-11- No 10mg QD Take [address] [facility] n (LIPITOR) 11-20 by mouth Sudhakar es 10 MG 17:05: 00:00 daily. Medical tablet 04 :00 [place] lamoTRIgine 2021-11- No 50mg QD Take [address] [facility] [address] (LaMICtal) 11-20 by mouth Luke s 25 MG 17:05: 00:00 daily. Medical tablet 04 :00 [place] gabapentin 2021-11- No 300mg Q.[id number] Take [address] (NEURONTIN) 11-20 [id number] mg by [facility] 300 MG 17:05: 00:00 [...] QD Take [address] [facility] [facility] (LIPITOR) -19 09-16 tablet (20 L ukes 20 MG 00:00: [...] 300mg QD Take [address] [facility] [address] (NEURONTIN) -16 -16 capsule Luke s 300 MG 00:00: 23:59 (300 mg Medical capsule 00 :00 total) by Center mouth nightly. atorvastati 2021-11- Yes 20mg QD Take [address] [facility] n (LIPITOR) -16 -16 tablet (20 L ukes 20 MG 00:00: 23:59 mg total) Medica l tablet 00 :00 by mouth Center nightly. gabapentin 2021-11- Yes 300mg QD Take [address] [facility] [address] (NEURONTIN) -16 -16 capsule Luke s 300 MG 00:00: 23:59 (300 mg Medical capsule 00 :00 total) by Center mouth nightly. atorvastati 2021-11- Yes 20mg QD Take [address] [facility] (LIPITOR) -16 -16 tablet (20 L ukes 20 MG 00:00: 23:59 mg total) Medica l tablet 00 :00 by mouth Center nightly. gabapentin 2021-11- Yes 300mg QD Take [address] [facility] [address] (NEURONTIN) -16 -16 capsule Luke s 300 MG 00:00: 23:59 [...] total) by Center mouth nightly. apixaban 2021-11- No 5mg Q.5D Take 1 [...] Q.5D Take [address] [facility] (Eliquis) 5 11-19-16 tablet (5 Nathalie kes mg Tab 00:00: 23:59 mg total) Medic al tablet 00 :00 by mouth 2 Center (two) times daily for 30 days. apixaban 2021-11- Yes 5mg Q.5D Take [address] [facility] [address] (Eliquis) 5 11-19-16 tablet (5 Nathalie kes mg Tab 00:00: 23:59 mg total) Medic al tablet 00 :00 by mouth 2 Center (two) times daily for 30 days. apixaban 2021-11- Yes 5mg Q.5D Take [address] [facility] [address] (Eliquis) 5 1-16 12-16 tablet (5 Nathalie kes mg Tab 00:00: 23:59 mg total) Medic al tablet 00 :00 by mouth 2 Center (two) times daily for 30 days. apixaban 2021-11- No 5mg Q.5D Take [address] [facility] [address] (Eliquis) 5 1-16 12-16 tablet (5 Nathalie kes mg Tab 00:00: 23:59 mg total) Medic al tablet 00 :00 by mouth 2 Center (two) times daily for 30 days. apixaban 2021-11- No 5mg Q.5D Take [address] [facility] [address] (Eliquis) 5 -16 12-16 tablet (5 Nathalie kes mg Tab 00:00: 23:59 mg total) Medic al tablet 00 :00 by mouth 2 Center (two) times daily for 30 days. furosemide 2021-11- No 20mg QD Take [address] [facility] (LASIX) 20 - 11-21 tablet (20 Nathalie kes MG tablet 00:00: 23:59 mg total) Me dical 00 :00 by mouth Center daily for 5 days. furosemide 2021-11- Yes 20mg QD Take [address] [facility] [address] (LASIX) 20 - 11-21 tablet (20 Nathalie kes MG tablet 00:00: 23:59 mg total) Me dical 00 :00 by mouth Center daily for 5 days. furosemide 2021-11- Yes 20mg QD Take [address] [facility] [address] (LASIX) 20 - 11-21 tablet (20 Nathalie kes MG tablet [...] by mouth. ity of tablet 12:00: 00:00 [place] 31 :00 Medical Branch levothyroxi 2021- No .05ug Take 0.05 Univers ne 50 mcg 8-17 08-17 mcg by ity of tablet 12:00: 00:00 mouth [place] 31 :00 every Medical morning. Branch QUEtiapine Yes [id number] TAKE ONE Univers 50 mg 8-17 (1) ity of tablet 00:00: TABLET(S) [place] 00 BY MOUTH Medical IN THE Branch MORNING AND 2 TABLETS AT BEDTIME. divalproex Yes [id number] 250mg Take 1 Univers 250 mg EC 8-17 tablet by ity o f tablet 00:00: mouth in [place] 00 the Medical morning Branch and 1 tablet in the evening. levothyroxi 2021-0 Yes [id number] 50ug Take 1 Univers ne 50 mcg 8-17 tablet by ity o f tablet 00:00: mouth [place] 00 every Medical morning. Branch hydrOXYzine 0 Yes [id number] 50mg Take 1 Univers 50 mg 8-17 tablet by ity of tablet 00:00: mouth 3 (three) Medical times [place] daily as needed for Anxiety. atorvastati 2021-0 Yes [id number] 20mg Take 1 Univers n 20 mg 8-17 tablet by ity of tablet 00:00: mouth at [place] 00 bedtime. Medical Branch pantoprazol 2021-0 Yes [id number] 40mg Take 1 Univers e 40 mg EC 8-17 tablet by ity of tablet 00:00: mouth in [place] 00 the Medical morning. Branch FLUoxetine 2021-0 Yes [id number] TAKE 1 U nivers 40 mg 8-17 CAPSULE BY ity of capsule 00:00: MOUTH [place] 00 DAILY IN Medical THE Branch MORNING WITH FOOD gabapentin 2021-0 Yes [id number] 300mg Take 1 Univers 300 mg 8-17 [id number] capsule by ity o f capsule 00:00: mouth at [place] 00 bedtime. [facility] Branch QUEtiapine 2021-0 Yes [id number] TAKE ONE Univers 50 mg 8-17 (1) ity of tablet 00:00: TABLET(S) 00 BY MOUTH Medical IN THE Branch MORNING AND 2 TABLETS AT BEDTIME. divalproex 2021-0 Yes [id number] 250mg Take 1 Univers 250 mg EC 8-17 tablet by ity o f tablet 00:00: mouth in [place] 00 the Medical morning Branch and 1 tablet in the evening. levothyroxi 2021-0 Yes [id number] 50ug Take 1 Univers ne 50 mcg 8-17 tablet by ity o f tablet 00:00: mouth [place] 00 every Medical morning. Branch hydrOXYzine 2021-0 Yes [id number] 50mg Take 1 [facility] 50 mg 8-17 tablet by ity of tablet 00:00: mouth 3 [place] 00 (three) Medical times [place] daily as needed for Anxiety. atorvastati 2021-0 Yes [id number] 20mg Take 1 Univers n 20 mg 8-17 tablet by ity of tablet 00:00: mouth at [place] 00 bedtime. Medical Branch pantoprazol 0 Yes [id number] 40mg Take 1 Univers e 40 mg EC 8-17 tablet by ity of tablet 00:00: mouth in [place] 00 the Medical morning. Branch FLUoxetine 2021-0 Yes [id number] TAKE 1 U nivers 40 mg 8-17 CAPSULE BY ity of capsule 00:00: MOUTH [place] 00 DAILY IN Medical THE [place] MORNING WITH FOOD gabapentin 2021-0 Yes [id number] 300mg Take 1 Univers 300 mg 8-17 [id number] capsule by ity o f capsule 00:00: mouth at [place] 00 bedtime. Medical Branch QUEtiapine 0 Yes [id number] TAKE ONE Univers 50 mg 8-17 (1) ity of tablet 00:00: TABLET(S) 00 BY MOUTH Medical IN THE Branch MORNING AND 2 TABLETS AT BEDTIME. divalproex Yes [id number] 250mg Take 1 Univers 250 mg EC 8-17 tablet by ity o f tablet 00:00: mouth in [place] the Medical morning Branch and 1 tablet in the evening. levothyroxi 0 Yes [id number] 50ug Take 1 Univers ne 50 mcg 8-17 tablet by ity o f tablet 00:00: mouth [place] 00 every Medical morning. Branch hydrOXYzine 0 Yes [id number] 50mg Take 1 Univers 50 mg 8-17 tablet by ity of tablet 00:00: mouth 3 00 (three) Medical times [place] daily as needed for Anxiety. atorvastati Yes [id number] 20mg Take 1 Univers n 20 mg 8-17 tablet by ity of tablet 00:00: mouth at [place] 00 bedtime. Medical Branch pantoprazol 2021-0 Yes [id number] 40mg Take 1 Univers e 40 mg EC 8-17 tablet by ity of tablet 00:00: mouth in [place] 00 the Medical morning. Branch FLUoxetine 2021-0 Yes [id number] TAKE 1 U nivers 40 mg 8-17 CAPSULE BY ity of capsule 00:00: MOUTH [place] 00 DAILY IN Medical THE [place] MORNING WITH FOOD gabapentin 2021-0 Yes [id number] 300mg Take 1 Univers 300 mg 8-17 [id number] capsule by ity o f capsule 00:00: mouth at [place] [address] bedtime. Medical Branch QUEtiapine 2021-0 Yes [id number] TAKE ONE Univers 50 mg 8-17 (1) ity of tablet 00:00: TABLET(S) 00 BY MOUTH Medical IN THE Branch MORNING AND 2 TABLETS AT BEDTIME. divalproex 2021-0 Yes [id number] 250mg Take 1 Univers 250 mg EC 8-17 tablet by ity o f tablet 00:00: mouth in [place] 00 the Medical morning Branch and 1 tablet in the evening. levothyroxi 2021-0 Yes [id number] 50ug Take 1 Univers ne 50 mcg 8-17 tablet by ity o f tablet 00:00: mouth [place] 00 every Medical morning. Branch hydrOXYzine 2021-0 Yes [id number] 50mg Take 1 Univers 50 mg 8-17 tablet by ity of tablet 00:00: mouth 3 00 (three) Medical times [place] daily as needed for Anxiety. atorvastati 2021-0 Yes [id number] 20mg Take 1 Univers n 20 mg 8-17 tablet by ity of tablet 00:00: mouth at [place] [address] bedtime. Medical Branch pantoprazol 2021-0 Yes [id number] 40mg Take 1 Univers e 40 mg EC 8-17 tablet by ity of tablet 00:00: mouth in [place] 00 the Medical morning. Branch FLUoxetine 2021-0 Yes [id number] TAKE 1 U nivers 40 mg 8-17 CAPSULE BY ity of capsule 00:00: MOUTH [place] 00 DAILY IN Medical THE Branch MORNING WITH FOOD gabapentin 2021-0 Yes [id number] 300mg Take 1 Univers 300 mg 8-17 [id number] capsule by ity o f capsule 00:00: mouth at [place] [address] bedtime. Medical Branch QUEtiapine 2021-0 Yes [id number] TAKE ONE Univers 50 mg 8-17 (1) ity of tablet 00:00: TABLET(S) 00 BY MOUTH Medical IN THE [place] MORNING AND 2 TABLETS AT BEDTIME. divalproex 2021-0 Yes [id number] 250mg Take 1 Univers 250 mg EC 8-17 tablet by ity o f tablet 00:00: mouth in [place] 00 the Medical morning Branch and 1 tablet in the evening. levothyroxi 2021-0 Yes [id number] 50ug Take 1 Univers ne 50 mcg 8-17 tablet by ity o f tablet 00:00: mouth [place] 00 every Medical morning. Branch hydrOXYzine 2021-0 Yes [id number] 50mg Take 1 Univers 50 mg 8-17 tablet by ity of tablet 00:00: mouth 3 (three) Medical times [place] daily as needed for Anxiety. atorvastati 2021-0 Yes [id number] 20mg Take 1 Univers n 20 mg 8-17 tablet by ity of tablet 00:00: mouth at [place] 00 bedtime. Medical Branch pantoprazol 2021-0 Yes [id number] 40mg Take 1 Univers e 40 mg EC 8-17 tablet by ity of tablet 00:00: mouth in [place] 00 the Medical morning. Branch FLUoxetine 2021-0 Yes [id number] TAKE 1 U nivers 40 mg 8-17 CAPSULE BY ity of capsule 00:00: MOUTH [place] 00 DAILY IN Medical THE Branch MORNING WITH FOOD gabapentin 2021-0 Yes [id number] 300mg Take 1 Univers 300 mg 8-17 [id number] capsule by ity o f capsule 00:00: mouth at [place] 00 bedtime. Medical Branch QUEtiapine 2021-0 Yes [id number] TAKE ONE Univers 50 mg 8-17 (1) ity of tablet 00:00: TABLET(S) 00 BY MOUTH Medical IN THE Branch MORNING AND 2 TABLETS AT BEDTIME. divalproex 2021-0 Yes [id number] 250mg Take 1 Univers 250 mg EC 8-17 tablet by ity o f tablet 00:00: mouth in [place] 00 the Medical morning Branch and 1 tablet in the evening. levothyroxi 2021-0 Yes [id number] 50ug Take 1 Univers ne 50 mcg 8-17 tablet by ity o f tablet 00:00: mouth [place] 00 every Medical morning. Branch hydrOXYzine 2021-0 Yes [id number] 50mg Take 1 Univers 50 mg 8-17 tablet by ity of tablet 00:00: mouth 3 00 (three) [facility] times [place] daily as needed for Anxiety. atorvastati 2021-0 Yes [id number] 20mg Take 1 Univers n 20 mg 8-17 tablet by ity of tablet 00:00: mouth at [place] 00 bedtime. Medical Branch pantoprazol 2021-0 Yes [id number] 40mg Take 1 Univers e 40 mg EC 8-17 tablet by ity of tablet 00:00: mouth in [place] 00 the Medical morning. Branch FLUoxetine 2021-0 Yes [id number] TAKE 1 U nivers 40 mg 8-17 CAPSULE BY ity of capsule 00:00: MOUTH [place] 00 DAILY IN Medical THE Branch MORNING WITH FOOD gabapentin Yes [id number] 300mg Take 1 Univers 300 mg 8 [id number] capsule by ity o f capsule 00:00: mouth at [place] 00 bedtime. Medical Branch QUEtiapine 2021- No TAKE ONE Un eddie 50 mg 05-21 (1) ity of tablet 00:00: 00:00 TABLET(S) [place] 00 :00 BY MOUTH Medical IN THE Branch MORNING AND 2 TABLETS AT BEDTIME. FLUoxetine 2021- No TAKE 1 Univ ers 40 mg 04-17 CAPSULE BY ity of capsule 00:00: 00:00 MOUTH [place] 00 :00 DAILY IN Medical THE Branch MORNING WITH FOOD hydrOXYzine 50mg Take 50 mg Univers 50 mg 04-17 by mouth 3 ity of tablet 00:00: 00:00 (three) [place] 00 :00 times Medical daily as Branch needed. divalproex 2021- 250mg Take 250 U nivers 250 mg EC 04-17 mg by ity of tablet 00:00: 00:00 mouth in [place] 00 :00 the Medical morning Branch and 250 mg in the evening. pantoprazol 2020-11 No 40mg Take 40 mg Univers e 40 mg EC 12-14 by mouth. ity of tablet 00:00: 00:00 [place] 00 :00 [facility] Branch Vital Signs Vital Name Observation Time Observation Value Comments Source HEIGHT 2022-09-29 01:29:00 170.2 cm WEIGHT 2022-09-29 01:29:00 127.007 kg HEIGHT 2022-09-29 01:29:00 170.2 cm WEIGHT 2022-09-29 01:29:00 127.007 kg HEIGHT 2022-09-29 01:29:00 170.2 cm WEIGHT 2022-09-29 01:29:00 127.007 kg Systolic blood 2022-09-25 03:34:00 140 mm[Hg] Univer sity of pressure [facility] Diastolic blood 2022-09-25 03:34:00 83 mm[Hg] Unive rsity of pressure [facility] Heart rate 2022-09-25 03:34:00 90 /min [facility] Oxygen saturation in 2022-09-25 03:34:00 98 /min [facility] Arterial blood by [facility] Pulse oximetry Branch Respiratory rate 2022-09-25 02:08:00 18 /min [facility] Body temperature 2022-09-25 00:13:00 36 [place] [facility] Body height 2022-09-25 00:13:00 170.2 cm Universi ty of [facility] Body weight 2022-09-25 00:13:00 129.275 kg Universi ty of [place] [facility] BMI 2022-09-25 00:13:00 44.64 kg/m2 Universi ty of [facility] HEIGHT 2022-09-17 13:50:00 170.2 cm WEIGHT 2022-09-17 13:50:00 127.007 kg HEIGHT 2022-09-17 13:50:00 170.2 cm WEIGHT 2022-09-17 13:50:00 127.007 kg HEIGHT 2022-09-17 13:50:00 170.2 cm WEIGHT 2022-09-17 13:50:00 127.007 kg Systolic blood 2022-06-20 16:27:00 132 mm[Hg] Univer sity of pressure [facility] Diastolic blood 2022-06-20 16:27:00 68 mm[Hg] Unive rsity of pressure [facility] Heart rate 2022-06-20 16:27:00 76 /min Universi ty of [facility] Body temperature 2022-06-20 16:27:00 36.28 [place] [facility] [place] [facility] Respiratory rate 2022-06-20 16:27:00 18 /min [facility] ersity of [facility] Body weight 2022-06-20 16:27:00 120.203 kg Universi ty of [facility] BMI 2022-06-20 16:27:00 41.50 kg/m2 Universi ty of [facility] BP Systolic 2022-10-16 14:32:00 121 mm[Hg] BP Diastolic 2022-10-16 14:32:00 81 mm[Hg] Weight Measured 2022-10-16 14:32:00 285.40 pounds Height Measured 2022-10-16 14:32:00 67.00 inches Body Temperature 2022-10-16 14:32:00 97.90 degrees Heart Rate 2022-10-16 14:32:00 93.00 /min Respiratory Rate 2022-10-16 14:32:00 17.00 /min Body temperature 2022-10-07 22:24:13 36.06 Sultana [facility] Respiratory rate 2022-10-07 22:24:13 17 /min [facility] Systolic blood 2022-10-07 21:50:23 121 mm[Hg] Method [facility] pressure Diastolic blood 2022-10-07 21:50:23 77 mm[Hg] [facility] pressure Heart rate 2022-10-07 21:50:23 86 /min [facility] Oxygen saturation in 2022-10-07 21:50:23 96 /min [facility] Arterial blood by Pulse oximetry Body height 2022-10-05 21:38:00 170.2 cm [facility] Body weight 2022-10-05 21:38:00 127.007 kg [facility] BMI 2022-10-05 21:38:00 43.85 kg/m2 [facility] Systolic blood 2022-09-29 06:56:00 110 mm[Hg] [facility] Diastolic blood 2022-09-29 06:56:00 82 mm[Hg] [facility] Heart rate 2022-09-29 06:56:00 99 /min [facility] Body temperature 2022-09-29 06:56:[address] [facility] Respiratory rate 2022-09-29 06:56:00 17 /min [facility] Oxygen saturation in 2022-09-29 06:56:00 97 /min [facility] Arterial blood by Medical Ce nter Pulse oximetry Body height 2022-09-29 01:29:00 170.2 cm [facility] Body weight 2022-09-29 01:29:00 127.007 kg [facility] BMI 2022-09-29 01:29:00 43.85 kg/m2 [facility] BP Systolic 2022-09-24 17:07:00 125 mm[Hg] BP Diastolic 2022-09-24 17:07:00 85 mm[Hg] Weight Measured 2022-09-24 17:07:00 287.40 pounds Height Measured 2022-09-24 17:07:00 67.00 inches Body Temperature 2022-09-24 17:07:00 97.60 degrees Heart Rate 2022-09-24 17:07:00 107.00 /min Respiratory Rate 2022-09-24 17:07:00 Heart rate 2022-09-19 09:41:00 89 /min [facility] Systolic blood 2022-09-19 07:56:00 109 mm[Hg] [facility] Diastolic blood 2022-09-19 07:56:00 69 mm[Hg] [facility] Body temperature 2022-09-19 07:56:[address] [facility] Respiratory rate 2022-09-19 07:56:00 18 /min [facility] Oxygen saturation in 2022-09-19 07:56:00 94 /min [facility] Arterial blood by Medical Ce nter Pulse oximetry Body height 2022-09-18 14:12:00 170.2 cm [facility] Body weight 2022-09-17 13:50:00 127.007 kg [facility] BMI 2022-09-17 13:50:00 43.85 kg/m2 [facility] BP Systolic 2022-09-06 15:38:00 126 mm[Hg] BP [...] REFERRAL- REQUEST/RESPONSE 2022-10-08 06:01:00 Doctor Unassigned , [facility] [place] [facility] URINE CULTURE 2022-10-07 00:24:00 [facility] spital VITAMIN B12 LEVEL 2022-10-07 00:24:00 [facility] VITAMIN D 25 HYDROXY LEVEL 2022-10-07 00:24:00 [facility] ANTINUCLEAR ANTIBODIES (JOSE CARLOS) 2022-10-07 00:24:00 [facility] WITH REFLEX TO TITER AND PATTERN, IMMUNOFLUORESCENCE URINE DRUGS OF ABUSE SCREEN 2022-10-07 00:24:00 [facility] URINALYSIS SCREEN AND 2022-10-07 00:24:00 [facility] MICROSCOPY, WITH REFLEX TO CULTURE HIV 1/2 ANTIGEN/ANTIBODY, 2022-10-07 00:24:00 [facility] FOURTH GENERATION, WITH REFLEXES SYPHILIS TREPONEMA SCREEN 2022-10-07 00:24:00 [facility] WITH RPR CONFIRMATION (REVERSE ALGORITHM) SEDIMENTATION RATE 2022-10-07 00:24:00 [facility] C-REACTIVE PROTEIN 2022-10-07 00:24:00 [facility] FOLATE LEVEL 2022-10-07 00:24:00 [facility] spital EEG AWAKE/ASLEEP LESS THAN 2022-10-06 21:46:42 [facility] [address] HEAD WO CONTRAST 2022-10-06 19:55:34 [facility] TTE COMPLETE, W CONTRAST, W 2022-10-06 14:45:00 [facility] DOPPLER ([id number]) CBC WITH PLATELET AND 2022-10-06 09:37:00 [facility], [facility] DIFFERENTIAL PROTHROMBIN TIME WITH INR 2022-10-06 09:37:00 [facility], [facility] PARTIAL THROMBOPLASTIN TIME 2022-10-06 09:37:00 [facility], [facility] (PTT) CREATINE KINASE, TOTAL (CPK) 2022-10-06 09:37:00 [facility], [facility] B NATRIURETIC PEPTIDE 2022-10-06 09:37:00 [facility], [facility] COMPREHENSIVE METABOLIC 2022-10-06 09:37:00 Fan, [facility] PANEL LIPID PANEL 2022-10-06 09:37:00 Fan, [facility] spital MAGNESIUM LEVEL 2022-10-06 09:37:00 Fan, [facility] spital PHOSPHORUS LEVEL 2022-10-06 09:37:00 Fan, [facility] ospital PREALBUMIN LEVEL 2022-10-06 09:37:00 Fan, [facility] ospital THYROID STIMULATING HORMONE 2022-10-06 09:37:00 Fan, [facility] T4, FREE 2022-10-06 09:37:00 Fan, [facility] spital URIC ACID LEVEL 2022-10-06 09:37:00 Fan, [facility] spital BILIRUBIN DIRECT 2022-10-06 09:37:00 Fan, [facility] ospital ESTIMATED GFR 2022-10-06 09:37:00 Fan, [facility] spital LACTIC ACID LEVEL, SEPSIS - 2022-10-06 06:50:00 [facility] NOW AND REPEAT 2X EVERY 3 HOURS TROPONIN T 2022-10-06 06:50:00 [facility] CT ANGIOGRAM PE CHEST 2022-10-06 03:13:00 Shu [facility] COVID-19 QUALITATIVE RT-PCR 2022-10-06 02:23:00 [facility] BLOOD CULTURE, AEROBIC & 2022-10-06 02:22:00 [facility] ANAEROBIC TROPONIN T 2022-10-06 00:40:00 Jackelin [facility] LACTIC ACID LEVEL, SEPSIS - 2022-10-06 00:40:00 Jackelin [facility] NOW AND REPEAT 2X EVERY 3 HOURS US DUPLEX VENOUS UPPER 2022-10-06 00:00:00 Vincent Ireland [facility] EXTREMITY BILATERAL CBC WITH PLATELET AND 2022-10-05 21:59:00 Kimani Benítez [facility] DIFFERENTIAL COMPREHENSIVE METABOLIC 2022-10-05 21:59:00 [facility] TROPONIN T 2022-10-05 21:59:00 Jackelin [facility] B NATRIURETIC PEPTIDE 2022-10-05 21:59:00 Kimani Benítez [facility] HCG QUALITATIVE, SERUM 2022-10-05 21:59:00 Kimani Benítez [facility] SCREEN ESTIMATED GFR 2022-10-05 21:59:00 Benítez, [facility] ECG 12-LEAD 2022-10-05 21:40:19 Jackelin [facility] ED ECG INTERPRETATION 2022-09-29 21:47:14 [facility] CBC W/PLT COUNT & AUTO 2022-09-29 03:42:00 [facility] DIFFERENTIAL [facility] CBC W/PLT COUNT & AUTO 2022-09-29 03:42:00 [facility] (CELLAVISION MANUAL DIFF) 2022-09-29 03:42:00 Sorenson-Perico, CH I [facility] BASIC METABOLIC PANEL 2022-09-29 03:41:00 [facility] MAGNESIUM 2022-09-29 03:41:00 [facility] HCG, QUANTITATIVE, 2022-09-29 03:41:00 [facility] ECG 12-LEAD 2022-09-29 01:36:03 Unknown, Hl7 Doctor [facility] ECG 12-LEAD 2022-09-29 01:36:03 Sorenson-River, [facility] 12-LEAD 2022-09-29 01:36:03 Unknown, Hl7 Doctor [facility] EKG-SCANNED 2022-09-29 00:00:00 Provider, Default [facility] es [facility] EBV-MONONUCLEOSIS SCREEN 2022-09-25 02:37:00 Oscar Penaloza [facility] POCT TEST 2022-09-25 02:37:00 Oscar Penaloza [facility] URINE DRUG (IMMUNOASSAY) - 2022-09-25 01:47:00 Oscar Penaloza [facility] COMPREHENSIVE DRUG SCREEN [facility] XR CHEST 1 VW 2022-09-25 00:46:04 Oscar Penaloza [facility] MAGNESIUM 2022-09-25 00:38:00 Oscar Penaloza Krystina [facility] TROPONIN I 2022-09-25 00:38:00 Oscar Penaloza [facility] COMP. METABOLIC PANEL 2022-09-25 00:38:00 Oscar Penaloza [facility] ([id number]) [facility] CBC WITH DIFF 2022-09-25 00:38:00 Oscar Penaloza Krystina [facility] D-DIMER 2022-09-25 00:38:00 Oscar Penaloza Krystina [facility] URINALYSIS 2022-09-25 00:38:00 Oscar Penaloza [facility] N-TERMINAL PRO-BNP 2022-09-25 00:38:00 Oscar Penaloza [facility] CONSENT/REFUSAL FOR 2022-09-25 00:00:04 [facility] [place] [facility] 2D ECHO W/ DOPPLER 2022-09-19 09:42:56 Sathya Rick [facility] (CW/PW/COLOR) [facility] BASIC METABOLIC PANEL 2022-09-19 04:07:00 [facility] 2022-09-19 04:07:00 Emmanuel [facility] CBC W/PLT COUNT & AUTO 2022-09-19 04:07:00 Emmanuel Eveliomiguelito [facility] DIFFERENTIAL [facility] CBC W/PLT COUNT & AUTO 2022-09-19 04:07:00 Ivonne Benitez [facility] DIFFERENTIAL [facility] MR BRAIN WITHOUT IV CONTRAST 2022-09-18 18:52:[address] [facility] MRA NECK WITHOUT IV CONTRAST 2022-09-18 18:51:00 [facility] MRA HEAD WITHOUT IV CONTRAST 2022-09-18 18:50:00 Moustapha [facility] ed [facility] SCREEN, URINE 2022-09-18 17:28:00 Marysol Gerarded CH I [facility] BASIC METABOLIC PANEL 2022-09-18 05:38:00 Emmanuel [facility] MAGNESIUM 2022-09-18 05:38:00 Emmanuel [facility] CBC W/PLT COUNT & AUTO 2022-09-18 05:38:00 [facility] S [facility] HIGH SENSITIVITY TROPONIN I 2022-09-18 05:38:00 Emmanuel [facility] TSH/FREE T4 IF INDICATED 2022-09-18 05:38:00 Emmanuel [facility] CBC W/PLT COUNT & AUTO 2022-09-18 05:38:00 Ivonne Benitez [facility] DIFFERENTIAL [facility] ECG 12-LEAD 2022-09-18 04:54:18 Unknown, Hl7 [facility] ECG 12-LEAD 2022-09-18 04:54:18 Emmanuel [facility] ECG 12-LEAD 2022-09-18 04:54:18 Unknown, Hl7 [facility] URINALYSIS W/ MICROSCOPIC 2022-09-18 02:30:00 Emmanuel Eveliomiguelito CH I [facility] ECG 12-LEAD 2022-09-17 22:28:54 Unknown, Hl7 [facility] HIGH SENSITIVITY TROPONIN I 2022-09-17 21:19:00 Severe, [facility] CTA CHEST,ABDOMEN & PELVIS - 2022-09-17 21:03:00 Severe, [facility] d [facility] FOR DISSECTION [facility] HCG, QUANTITATIVE, 2022-09-17 18:05:00 Severe, [facility] URINALYSIS W/ MICROSCOPIC 2022-09-17 16:03:00 Severe, [facility] SARS-COV2/RT-PCR (HS & REF 2022-09-17 16:02:00 Severe, [facility] LABS) [facility] CBC W/PLT COUNT & AUTO 2022-09-17 16:02:00 Severe, [facility] DIFFERENTIAL [facility] COMPREHENSIVE METABOLIC 2022-09-17 16:02:00 Severe, [facility] B-TYPE NATRIURETIC FACTOR 2022-09-17 16:02:00 Severe, [facility] C [facility] (BNP) [facility] LACTIC ACID, VENOUS 2022-09-17 16:02:00 Severe, [facility] HIGH SENSITIVITY TROPONIN I 2022-09-17 16:02:00 Severe, [facility] CBC W/PLT COUNT & AUTO 2022-09-17 16:02:00 Severe, [facility] XR CHEST 2 VIEWS 2022-09-17 14:50:00 Severe, [facility] ECG 12-LEAD 2022-09-17 13:48:54 Unknown, Hl7 [facility] ECG 12-LEAD 2022-09-17 13:48:54 Severe, [facility] ECG 12-LEAD 2022-09-17 13:48:54 Unknown, Hl7 [facility] EKG-SCANNED 2022-09-17 00:00:00 ProviderLanette [facility] REFERRAL- REQUEST/RESPONSE 2022-09-03 05:01:00 Doctor Unassigned , [facility] [place] [facility] Plan of Care Planned Activity [...] Cessation Counseling and Screening (12+)] Future Scheduled 2022-10-25 [facility] 14:57:33 screening (procedure) [code = 568164300] Future Scheduled 2022-10-25 Screening for [facility] Test 14:57:33 malignant neoplasm of cervix (procedure) [code = 149633023] Future Scheduled 2022-10-25 COVID-19 VACCINE (3 Meth [facility] Test 14:57:33 - Booster for Pfizer series) [code = COVID-19 VACCINE (3 - Booster for Pfizer series)] Future Scheduled 2022-10-25 INFL[facility]ENZA VACCINE [facility] 14:57:33 [code = INFLUENZA VACCINE] Future Scheduled 2022-10-16 [facility] 16:48:19 screening (procedure) [code = 565201627] Future Scheduled 2022-10-16 [facility] 16:48:19 malignant neoplasm of cervix (procedure) [code = 426713252] Future Scheduled 2022-10-16 COVID-19 VACCINE (3 [facility] Test 16:48:19 - Booster for Pfizer series) [code = COVID-19 VACCINE (3 - Booster for Pfizer series)] Future Scheduled 2022-10-16 [facility]ACCINE [facility] 16:48:19 [code = INFLUENZA VACCINE] Future Scheduled 2022-10-16 [facility] 16:48:19 screening (procedure) [code = 077342579] Future Scheduled 2022-10-16 [facility] 16:48:19 malignant neoplasm of cervix (procedure) [code = 960721757] Future Scheduled 2022-10-16 COVID-19 VACCINE (3 [facility] Test 16:48:19 - Booster for Pfizer series) [code = COVID-19 VACCINE (3 - Booster for Pfizer series)] Future Scheduled 2022-10-16 [facility]FLUENZA VACCINE [facility] 16:48:19 [code = INFLUENZA VACCINE] Future Scheduled 2022-10-15 HEPATITIS B VACCINES [facility] Test 10:25:35 (1 of 3 - 3-dose series) [code = HEPATITIS B VACCINES (1 of 3 - 3-dose series)] Future Scheduled 2022-10-15 [facility] 10:25:35 screening (procedure) [code = 499147442] Future Scheduled 2022-10-15 [facility] 10:25:35 malignant neoplasm of cervix (procedure) [code = 101342990] Future Scheduled 2022-10-15 COVID-19 VACCINE (3 Meth [...] 3-dose series)] Future Scheduled 2022-10-15 [facility] 10:25:35 screening (procedure) [code = 074253344] Future Scheduled 2022-10-15 [facility] 10:25:35 malignant neoplasm of cervix (procedure) [code = 751609727] Future Scheduled 2022-10-15 COVID-19 VACCINE (3 Meth [...] C enter of cervix (procedure) [code = 307965260] Future Scheduled [address] [facility] Test 00:00:00 malignant neoplasm Medical C enter of cervix (procedure) [code = 914286903] Future Scheduled [address] [facility] Test 00:00:00 malignant neoplasm Medical C enter of cervix (procedure) [code = 704983402] Future Scheduled [address] [facility] Test 00:00:00 malignant neoplasm Medical C enter of cervix (procedure) [code = 966767857] Future Scheduled [address] [facility] Test 00:00:00 malignant neoplasm Medical C enter of cervix (procedure) [code = 562570170] Future Scheduled [address] [facility] Test 00:00:00 malignant neoplasm Medical C enter of cervix (procedure) [code = 654786504] Future Scheduled [address] [facility] Test 00:00:00 malignant neoplasm Medical C enter of cervix (procedure) [code = 102928156] Future Scheduled [address] [facility] Test 00:00:00 malignant neoplasm Medical C enter of cervix (procedure) [code = 716247419] Future Scheduled [address] [facility] Test 00:00:00 (procedure) [code = [facility] 01006328] Future Scheduled [address] [facility] Test 00:00:00 (procedure) [code = [facility] 57002246] Future Scheduled [address] [facility] Test 00:00:00 (procedure) [code = [facility] 93612009] Future Scheduled [address] [facility] Test 00:00:00 (procedure) [code = [facility] 29364543] Future Scheduled [address] [facility] Test 00:00:00 (procedure) [code = [facility] 37573168] Future Scheduled [address] [facility] Test 00:00:00 (procedure) [code = [facility] 92807693] Future Scheduled [address] [facility] Test 00:00:00 (procedure) [code = [facility] 62163343] Future Scheduled [address] [facility] Test 00:00:00 (procedure) [code = [facility] 67666136] Future Scheduled 2008 DTAP/TDAP/TD [facility] [...] Goal Plan of Care Note [code = 93974-1] Goal Plan of Care Note [code = 35577-5] Goal Plan of Care Note [code = 18664-2] Goal Plan of Care Note [code = 31254-6] Goal Plan of Care Note [code = 39055-4] Goal Plan of Care Note [code = 36294-5] Goal Plan of Care Note [code = 08575-1] Goal Plan of Care Note [code = 22192-9] Goal Plan of Care Note [code = 50551-3] Goal Plan of Care Note [code = 88863-1] Goal Plan of Care Note [code = 43289-1] Goal Plan of Care Note [code = 95706-5] Goal Plan of Care Note [code = 69462-4] Goal Plan of Care Note [code = 45833-2] Goal Plan of Care Note [code = 08610-9] Goal Plan of Care Note [code = 56913-3] Goal Plan of Care Note [code = 80106-8] Goal Plan of Care Note [code = 51377-3] Goal Plan of Care Note [code = 44844-1] Goal Plan of Care Note [code = 87156-8] Goal Plan of Care Note [code = 35335-7] Goal Plan of Care Note [code = 57558-9] Goal Plan of Care Note [code = 80944-1] Goal Plan of Care Note [code = 81488-6] Goal Plan of Care Note [code = 33924-6] Goal Plan of Care Note [code = 23927-3] Goal Plan of Care Note [code = 07808-4] Goal Plan of Care Note [code = 62866-0] Goal Plan of Care Note [code = 47304-9] Goal Plan of Care Note [code = 50372-6] Goal Plan of Care Note [code = 89230-0] Goal Plan of Care Note [code = 25793-8] Goal Plan of Care Note [code = 34228-1] Goal Plan of Care Note [code = 70610-8] Goal Plan of Care Note [code = 73618-0] Goal Plan of Care Note [code = 09374-3] Goal Plan of Care Note [code = 95331-3] Goal Plan of Care Note [code = 09261-8] Goal Plan of Care Note [code = 80007-6] Goal Plan of Care Note [code = 57968-9] Goal Plan of Care Note [code = 50724-5] Goal Plan of Care Note [code = 21344-4] Goal Plan of Care Note [code = 88872-0] Goal Plan of Care Note [code = 63246-9] Goal Plan of Care Note [code = 20349-1] Goal Plan of Care Note [code = 65145-4] Goal Plan of Care Note [code = 29726-9] Goal Plan of Care Note [code = 15205-5] Goal Plan of Care Note [code = 30412-3] Goal Plan of Care Note [code = 41246-5] Goal Plan of Care Note [code = 35233-4] Goal Plan of Care Note [code = 22920-4] Encounters Start End Encounter Admission Attending Care Care Encounter Source Date/Time Date/Time Type Type Clinicians Facility Department ID 2022-04-24 Outpatient STOCKS, [facility] [id number] MH CY 16:04:42 DORIS 2022-10-25 2022-10-25 [facility] [id number] Univers 00:00:00 00:00:00 (Out) [facility] 350.1.13.10 it y of Neurology [place]LE[place] [phone] [facility] 0[address] Branch OFFICE BUILDING 2022-10-21 2022-10-21 Refill Doris Stovall 1.2.840.114 [id number] Univers 00:00:00 00:00:00 Y PEDIATRIC 350.1.13.10 [place] [phone] [place] [address] Branch [facility]ARE [facility] 2022-10-16 2022-10-[address] [facility] [id number] James 14:25:22 14:25:22 [id number] F Gustabo 2022-10-16 2022-10-16 Outpatient [id number] 00:00:00 00:00:00 Visit [id number] 2022-10-10 2022-10-10 Patient Vinicius, 1.2.840.1 [id number] Methodi 00:00:00 00:00:00 Outreach Laura [address]8775.1.[address] 3.430.2.7 Hospit a .3.784194 l .8 2022-10-10 2022-10-10 Patient Vinicius, 1.2.840.1 [id number] Methodi 00:00:00 00:00:00 Outreach Laura 14334.1.[address] 3.430.2.7 Hospit a .3.622542 l .8 2022-10-08 2022-10-08 Orders Doctor REJI 1.2.840.114 [id number] Univers 00:00:00 00:00:00 Only Unassigned, ARISTEO 350.1.13.10 ity of [place] [facility] 4.2.7.2.686 Miguel Angel as [phone] [facility] 00[address] Branch 2022-10-05 2022-10-07 Emergency Donny Noel 1.2.840.1 [id number] Methodi 15:40:00 17:25:00 Rich [place] [address]378.1.[address] 3.430.2.7 Hospit a .3.507715 l .8 2022-10-05 2022-10-07 Emergency Donny Noel 1.2.840.1 [id number] Methodi 15:40:00 17:25:[address] 3.430.2.7 Hospit a .3.555327 l .8 2022-10-02 2022-10-[address] [facility] [id number]- James 13:45:08 13:45:08 36441 F Gustabo 2022-09-29 2022-09-29 Outpatient [facility] [id number] [facility] 00:00:00 23:59:00 David barreto of Medicin e 2022-09-29 2022-09-29 Emergency ER [facility] SLE Emergency 20 [id number] SLE 01:36:00 07:44:00 ROSSY OCHOA 2022-09-29 2022-09-29 Emergency ER [facility] [id number] 01:36:00 07:44:00 Rossy ochoa [facility] 2022-09-29 2022-09-29 Emergency [facility] [id number] 01:36:00 07:44:00 Rossy ochoa [facility] 2022-09-29 2022-09-29 Travel [facility] [id number] [facility] 00:[facility] 00[facility]00 [facility] 2022-09-29 2022-09-29 Travel [facility] [id number] [facility] 00:[facility] 00:00:00 [facility] 2022-09-24 2022-09-24 Emergency X Oscar PENALOZA [facility] ERT [id number] Univers 18:19:00 21:37:00 ity of [facility] 2022-09-24 2022-09-24 Emergency Oscar Penaloza [facility] 1.2.840.114 [id number] Univers 18:19:00 21:37:00 Krystina LOPEZ 350.1.13.10 i [facility] 4.2.7.2.686 [facility] [id number] [address] 2022-09-24 2022-09-[address] [facility] [id number]- James 17:01:48 17:01:48 F Gustabo 2022-09-24 2022-09-24 Outpatient [id number]- [id number] 750ecf-8 00:00:00 00:00:00 Visit 5r5j-471a z6c-910h-b -y29z-wgg 83e-cedbd8 hl3ls1e13 ce2f51 2022-09-17 2022-09-19 Outpatient ER MOUSTAPHA, [facility] Emergency [id number] SLE 13:57:00 17:05:00 [facility] 2022-09-17 2022-09-19 Emergency ER Severe, Steve [facility] [id number] 13:57:00 17:05:00 [facility] 2022-09-17 2022-09-19 Emergency Severe, Steve [facility] [id number] 13:57:00 17:05:00 [facility] 2022-09-18 2022-09-18 Travel [facility] [id number] [facility] 00:00:00 00:00:00 [facility] 2022-09-18 2022-09-18 Travel [facility] [id number] [facility] 00:[facility]00 00:00:00 [facility] 2022-09-17 2022-09-17 Outpatient [facility] [id number] [facility] 00:00:00 23:59:00 Lawanda 2022-09-17 2022-09-17 Orders [facility] [id number] 00:00:00 00:00:00 Only [facility] 2022-09-17 2022-09-17 Orders [facility] [id number] 00:00:00 00:00:00 Only [facility] 2022-09-11 2022-09-11 Outpatient SFA SFA [id number]- James 16:14:02 16:14:02 45473 F Gustabo 2022-09-06 2022-09-06 Outpatient SFA SFA [id number]- 202 James 15:21:36 15:21:36 40626 F Gustabo 2022-09-06 2022-09-06 Outpatient k5ha7se5- [id number] f2 li0yj9-d 00:00:00 00:00:00 Visit e64j-50w3 39a-44a9-a -u234-98v 149-52f05c 93i6e6327 0p0017 2022-09-03 2022-09-03 Outpatient SFA SFA [id number]- [id number] James 14:25:05 14:25:05 08839 F Gustabo 2022-09-03 2022-09-03 Orders Doctor REJI 1.2.840.114 [id number] [facility] 00:00:00 00:00:00 Only Unassigned, ARISTEO 350.1.13.10 ity of [place] [facility] 4.2.7.2.686 Miguel Angel as [id number] [place] [address] [address] 2022-09-03 2022-09-03 Outpatient 11fccdbf- [id number] 11 fccdbf-f 00:00:00 00:00:00 Visit p846-5523 793-4010-8 -1yb1-[address] [facility]-086475 8906n82d7 8e17d2 2022-07-11 2022-07-12 Emergency E KIA, BL MHBL 7507 BL 20:54:00 00:37:00 [facility] 2022-06-20 2022-06-20 Outpatient R DORIS STOVALL [facility] [id number] Univers 11:15:00 13:07:14 ity of [facility] 2022-06-20 2022-06-20 Office Doris Stovall 1.2.840.114 [id number] Univers 11:15:00 13:07:14 Visit Y PEDIATRIC 350.1.13.10 it[place] [id number] [facility] PRIMARY [address] CARE CLINIC 2022-06-19 2022-06-19 Urgent Toñito [facility] 1.2.840.114 [id number] [facility] Univers 16:00:00 16:20:00 [facility] 350.1.13.10 it y of [place] 4.2.7.2.686 Miguel Angel as HARPREET?BLEA [id number] [place] [address] MEDICAL OFFICE BUILDING 2022-06-19 2022-06-19 Outpatient R TOÑITO, [facility] [id number] Univers 16:00:00 16:00:00 SEAN schneider of [facility] 2022-06-19 2022-06-19 Orders Doctor REJI 1.2.840.114 [id number] Univers 00:00:00 00:00:00 Only Unassigned, ARISTEO 350.1.13.10 ity of [place] [facility] 4.2.7.2.686 [facility] as [id number] [address] 2022-04-24 2022-04-24 Outpatient E SHAUNA [facility] MED 7506 MHC[facility] 06:45:00 18:13:00 VICENTEDANIAEN 2022-04-14 2022-04-14 Emergency E MILLY, MHCY MHCY 7504 MHCY 14:10:00 18:49:00 THOMAS 2022-04-11 2022-04-13 Outpatient E RAE-CORRINA [facility] MED 750 3 MHCY 23:00:00 13:40:00 , YOHAN 2022-04-11 2022-04-11 Emergency E WALK, MHCY MHCY 7502 MHCY 04:18:00 06:47:00 BEENA 2022-04-10 2022-04-10 Emergency E JS, MHCY MHCY 7501 MHCY 10:05:00 14:04:00 [facility] 2022-03-28 2022-03-28 Emergency E JS, MHCY MHCY 7500 MHCY 14:03:00 20:48:00 CHERELLE 2022-03-26 2022-03-26 Emergency EM Crook, HCATB HCATB [id number] [facility] 21:24:00 22:58:00 Dav [id number] [facility] 2022-03-26 2022-03-26 Emergency EM Crook, HCATB EO3 [id number] [facility] 21:24:00 22:58:00 Dav 03 [facility] Results Test Description Test Time Test Comments Results Result Comments Source Urine culture 2022-10-07 01:05:00 Test Item Value Reference Range Interpretation Comme nts Urine culture (test code = 4569973) SEE COMMENT Bacteriuria screen negative. [facility] [id number] 01:05:00 Test Item Value Reference Range Interpretation Comments Urine culture (test SEE COMMENT Bacteriu marija screen code = 2465617) negative. [facility]2022-12-04 01:05:00 Test Item Value Reference Range Interpretation Comments Urine culture (test SEE COMMENT Bacteriu marija screen code = 6264551) negative. [facility]2022-12-04 01:05:00 Test Item Value Reference Range Interpretation Comments Urine culture (test SEE COMMENT Bacteriu marija screen code = 7384393) negative. [facility]2022-12-04 01:05:00 Test Item Value Reference Range Interpretation Comments Urine culture (test SEE COMMENT Bacteriu marija screen code = 4293861) negative. [address]2022-12-03 22:11:54 Test Item Value Reference Range Interpretation Comments Ventricular rate (test code = 253) Atrial rate (test code = 255) WI interval (test code = 266) QRSD interval [...] Albrecht MD (1008) on 10/06/2022 4:11:50 PM [address]2022-12-03 22:11:54 Test Item Value Reference Range Interpretation Comments Ventricular rate (test code = 253) Atrial rate (test code = 255) WI interval (test code = 266) QRSD interval [...] Albrecht MD (1008) on 10/06/2022 4:11:50 PM [address]2022-12-03 22:11:54 Test Item Value Reference Range Interpretation Comments Ventricular rate (test code = 253) Atrial rate (test code = 255) WI interval (test code = 266) QRSD interval [...] Albrecht MD (1008) on 10/06/2022 4:11:50 PM [address]2022-12-03 22:11:54 Test Item Value Reference Range Interpretation Comments Ventricular rate (test code = 253) Atrial rate (test code = 255) WI interval (test code = 266) QRSD interval [...] Albrecht MD (1008) on 10/06/2022 4:11:50 PM [address]2022-12-03 22:11:54 Test Item Value Reference Range Interpretation Comments Ventricular rate (test code = 253) Atrial rate (test code = 255) WI interval (test code = 266) QRSD interval [...] available-Electronica lly Signed By Reji Albrecht MD ([id number]) on 10/06/2022 4:11:50 [facility] [Presence] in Respiratory specimen by MARIA C with probe [id number] 00:39:44 Test Item Value Reference Range Interpretation Comments SARS-CoV-2 (COVID-19) RNA Not detected [Presence] in Respiratory specimen by MARIA C with probe detection (test code = 29675-8) Whether patient is employed in a Unknown healthcare setting (test code = 03005-2) Whether the patient has symptoms Unknown related to condition of interest (test code = 73240-2) Whether the patient was Unknown hospitalized for condition of interest (test code = 65380-0) Whether the patient was admitted Unknown to intensive care unit (ICU) for condition of interest (test code = 49498-4) Whether patient resides in a Unknown congregate care setting (test code = 96101-1) status (test code = Unknown 68380-4) Date and time of symptom onset Unknown (test code = 57346-1) CHELLE PEREZ(CELLAVISION MANUAL DIFF)2022-09-29 06:57:14 Test Item [...] CONCENTRATION Adequate (CELLAVISION)(BEAKER) (test code = 3438) Tax Commissioner ID - Carlee Brown comments: Slide comments:CBC W/PLT COUNT & AUTO [id number] 06:57:13 Test Item Value Reference Range Interpretation [...] (BEAKER) (test code = 413) HCG, QUANTITATIVE, [id number] 05:03:53 Test Item Value Reference Range Interpretation Comments GONADOTROPIN, CHORIONIC (HCG) QUANT < mIU/mL 0-10 (BEAKER) (test code = 649) Non- Females: <10 mIU/mL Females: Gestation Age Reference Range(mIU/mL) 0.2-1 Week 5-50 1-2 Weeks 50-500 2-3 Weeks 100-5,000 3-4 Weeks 500-10,000 4-5 Weeks 1,000-50,000 5-6 Weeks 10,000-100,000 6-8 Weeks 15,000- 200,000 2-3 Months 10,000-100,000 Tax Commissioner PAM DE LA CRUZ [id number] 04:29:17 Test Item Value Reference Range Interpretation Comments MAGNESIUM (BEAKER) 1.9 mg/dL 1.6-2.6 Specimen slightly (test code = 627) hemolyzed Tax Commissioner PAM DE LA CRUZ LBASIC METABOLIC [id number] 04:29:17 Test Item Value Reference Range Interpretation [...] not appl icable for dialysis patien ts Tax Commissioner PAM DE LA CRUZ LEBV-MONONUCLEOSIS [id number] 03:07:10 Test Item Value Reference Range Interpretation Comments EBV Mononucleosis Screen (test code Negative Negative = 8050055081) Lab Interpretation (test code = Normal 57054-3) [facility] [id number] 02:37:00 Test Item Value Reference Range Interpretation Comments POCT PREG (test code = 1605) negative On board controls acceptable with present C Line (test code = 3574) POCT PREG LOT # (test code = 3575) [id number] POCT PREG TEST DATE (test 02/02/2024 code = 3576) Lab Interpretation (test code = Normal 22754-5) [facility] CenterTR[facility] [id number] 01:15:13 Test Item Value Reference Interpretation Comments Range TROPONIN I (test 0.002 ng/mL See_Comment [Automated code = 4546559790) message] The system which generated this result [...] biotin. Lab Interpretation Normal (test code = 06430-3) [facility]MINAL [id number] 01:11:55 Test Item Value Reference Range Interpretation Comments NT-proBNP (test code 16 pg/mL See_Comment [Autom ated = 9901078230) message] The system which generated this result transmitted reference range : <=125. The reference range was not used to interpret this result as normal/abnormal . JAYDE (test code = JAYDE) Biotin has been reported to cause a negative bias, interpret results relative to patient's use of biotin. Lab Interpretation Normal (test code = 95174-6) [facility] CenterD-[id number] 01:10:03 Test Item Value Reference Interpretation Comments Range D-DIMER (test code = See_Comment [Autom ated 9692818663) message] The system which generated this result [...] diagnosis. Lab Interpretation Normal (test code = 97543-1) [facility]UM2022-11-22 01:03:37 Test Item Value Reference Range Interpretation Comments MAGNESIUM (test code = 3450307318) 1.9 mg/dL 1.7-2.4 Lab Interpretation (test code = Normal 59390-6) [facility] CenterCOMP. METABOLIC PANEL (30053)2022-09-25 01:03:36 Test Item Value Reference Range Interpretation Comments NA (test code = 142 mmol/L 135-145 2968455423) K (test code = 3.8 mmol/L 3.5-5.0 2677466189) CL (test code = 111 mmol/L 98-108 H 1435095454) CO2 TOTAL (test code = 21 mmol/L 23-31 L 7725760787) AGAP (test code = 2-16 0070087165) BUN (test code = 11 mg/dL 7-23 4645153426) GLUCOSE (test code = 110 mg/dL 70-110 3265658635) CREATININE (test code = 0.92 mg/dL 0.50-1.04 2834918619) TOTAL BILI (test code = 0.4 mg/dL 0.1-1.3 5147863660) CALCIUM (test code = 9.1 mg/dL 8.6-10.6 4290096592) T PROTEIN (test code = 6.9 g/dL 6.3-8.2 2895519900) ALBUMIN (test code = 4.3 g/dL 3.5-5.0 9236958968) ALK PHOS (test code = 121 U/L 34-122 2225709041) ALTv (test code = 54 U/L 5-35 H 1742-6) AST(SGOT) (test code = 38 U/L 13-40 9811591180) eGFR (test code = mL/min/1.73m2 3229338938) JAYDE (test code = JAYDE) Association of [...] tests). Lab Interpretation Abnormal (test code = 30340-3) [facility] WITH [id number] 00:50:11 Test Item Value Reference Range Interpretation [...] RDW-SD (test code = 48.3 fL 39.0-49.9 08219-6) RDW-CV (test code = 16.0 % 12.0-15.5 H 788-0) PLT (test code = See_Comment [Automated 777-3) message] The sy stem which generated this result transmitted reference range : 166 - 358 10*3/ ?L. The reference r jason was not used to interpret this result as normal/abnormal . MPV (test code = 9.9 fL 9.5-12.9 34567-5) NRBC/100 WBC (test See_Comment [Automat ed code = 7612412073) message] The system which generated this result transmitted reference range : 0.0 - 10.0 /100 WBCs. The refer ence range was not u sed to interpret th is result as normal/abnormal . NRBC x10^3 (test code See_Comment [Auto mated = 5403269010) message] The s ystem which generated this result transmitted reference range : 10*3/?L. The reference range was not used to interpret this result as normal/abnormal . GRAN MAT (NEUT) % 71.2 % (test code = 770-8) IMM GRAN % (test code 0.90 % = 8416376735) LYMPH % (test code = 20.4 % 736-9) MONO % (test code = 6.0 % 5905-5) EOS % (test code = 1.1 % 713-8) BASO % (test code = 0.4 % 706-2) GRAN MAT x10^3(ANC) 9.94 10*3/uL 1.88-7.09 H (test code = 3606358410) IMM GRAN x10^3 (test 0.12 10*3/uL 0.00-0.06 H code = 6718404333) LYMPH x10^3 (test code 2.84 10*3/uL 1.32-3.29 = 731-0) MONO x10^3 (test code 0.84 10*3/uL 0.33-0.92 = 742-7) EOS x10^3 (test code = 0.15 10*3/uL 0.03-0.39 711-2) BASO x10^3 (test code 0.05 10*3/uL 0.01-0.07 = 704-7) Lab Interpretation Abnormal (test code = 10205-4) [facility] W/Doppler(CW/PW/Color)2022-09-19 12:25:54Ejection FractionSLEH ECHO HEARTLAB [facility] Echo W/Doppler(CW/PW/Color)2022-09-19 12:25:54Ejection FractionSLEH ECHO HEARTLAB [facility]2D Echo W/Doppler(CW/PW/Color)2022-09-19 12:25:54Ejection FractionSLEH ECHO HEARTLAB [facility]2D Echo W/Doppler(CW/PW/Color) 2022-09-19 12:25:54Ejection FractionSLEH ECHO HEARTLAB [facility] Echo W/Doppler(CW/PW/Color)2022-09-19 12:25:54Ejection FractionSLEH ECHO HEARTLAB [facility]D Echo W/Doppler(CW/PW/Color)2022-09-19 12:25:54Ejection FractionSLEH ECHO HEARTLAB [facility]2D Echo W/Doppler(CW/PW/Color) 2022-09-19 12:25:54Ejection FractionSLEH ECHO HEARTLAB [facility] Echo W/Doppler(CW/PW/Color)2022-09-19 12:25:54Ejection FractionSLEH ECHO HEARTLAB [facility] ServicesBASIC METABOLIC [id number] 06:21:24 Test Item Value Reference Range Interpretation [...] not appl icable for dialysis patien ts Tax Commissioner ID - BAN [id number] 06:21:24 Test Item Value Reference Range Interpretation Comments MAGNESIUM (BEAKER) (test code = 2.0 mg/dL 1.6-2.6 627) Tax Commissioner ID - BAN MCBC W/PLT COUNT & AUTO [id number] 05:15:21 Test Item Value Reference Range Interpretation [...] code = 2801) MR, MRA, BRAIN, WITHOUT [id number] 20:21:00Reason for exam:->Ischemic Stroke EvaluationCHI [facility]: [facility] : 1990 Sex: FFINAL [...] 09/18/2022 20:21:23 MR, MRA, NECK, WITHOUT IV [id number] 20:21:00Reason for exam:->Ischemic Stroke EvaluationCH[facility] : 1990 Sex: [...] Verified Date/Time: 09/18/2022 20:21:23 MR, BRAIN, WITHOUT [id number] 20:21:00Reason for exam:->Ischemic Stroke EvaluationEM[facility] : 1990 Sex: FFINAL [...] or cranial circulation. Signed: Luis Carlos Callahan [facility] Verified Date/Time: 09/18/2022 20:21:23 Screen, [id number] 17:50:03 Test Item Value Reference Range Interpretation Comments Preg Test, Ur (test code = 2112-1) Negative Negative Lab Interpretation (test code = Normal 30908-5) [facility], [id number] 17:50:03 Test Item Value Reference Range Interpretation Comments Preg Test, Ur (test code = 2112-1) Negative Negative Lab Interpretation (test code = Normal 26251-9) [facility], [id number] 17:50:03 Test Item Value Reference Range Interpretation Comments Preg Test, Ur (test code = 2112-1) Negative Negative Lab Interpretation (test code = Normal 17998-6) [facility], [id number] 17:50:03 Test Item Value Reference Range Interpretation Comments Preg Test, Ur (test code = 2112-1) Negative Negative Lab Interpretation (test code = Normal 15788-0) [facility], [id number] 17:50:03 Test Item Value Reference Range Interpretation Comments Preg Test, Ur (test code = 2112-1) Negative Negative Lab Interpretation (test code = Normal 92123-6) [facility], [id number] 17:50:03 Test Item Value Reference Range Interpretation Comments Preg Test, Ur (test code = 2112-1) Negative Negative Lab Interpretation (test code = Normal 51285-3) [facility], [id number] 17:50:03 Test Item Value Reference Range Interpretation Comments Preg Test, Ur (test code = 2112-1) Negative Negative Lab Interpretation (test code = Normal 45462-2) [facility], [id number] 17:50:03 Test Item Value Reference Range Interpretation Comments Preg Test, Ur (test code = 2112-1) Negative Negative Lab Interpretation (test code = Normal 00516-5) [facility]PREG[facility]NCY SCREEN, [id number] 17:50:03 Test Item Value Reference Range Interpretation Comments TEST URINE (BEAKER) (test Negative Negative code = 583) Urinalysis w/ [id number] 07:01:05 Test Item Value Reference Range Interpretation Comments Color, UA (test code Yellow = 5778-6) Clarity, UA (test Clear code = 5767-9) Specific Cyrus, UA >1.050 1.001-1.035 H (test code = 5811-5) pH, UA (test code = 9.0 5.0-8.0 H 5803-2) Protein, UA (test 70 mg/dL Negative A code = 54238-4) Glucose, UA (test Negative Negative code = 365) Ketones, UA (test Negative Negative code = 2514-8) Bilirubin, UA (test Negative Negative code = 54890-6) Blood, UA (test code Negative Negative = 06855-8) Nitrite, UA (test Negative Negative code = 5802-4) Leukocytes, UA (test Negative Negative code = 5799-2) Urobilinogen, UA 0.2 0.2-1.0 (test code = 65847-4) RBC, UA (test code = 2 See_Comment [Autom ated 07471-0) message] The system which generated this result [...] 4 See_Comment [Automate d (test code = 70628-2) messag e] The system which generated this result transmit ajay reference range : /HPF. The reference range was not used to interpret this result as normal/abnormal . Specimen Source (test Urine, Clean code = 2795) Catch JAYDE (test code = JAYDE) Tax Commissioner ID - tech Lab Interpretation Abnormal (test code = 90523-1) [facility] Center[facility]inalysis w/ [id number] 07:01:05 Test Item Value Reference Range Interpretation Comments Color, UA (test code Yellow = 5778-6) Clarity, UA (test Clear code = 5767-9) Specific Cyrus, UA >1.050 1.001-1.035 H (test code = 5811-5) pH, UA (test code = 9.0 5.0-8.0 H 5803-2) Protein, UA (test 70 mg/dL Negative A code = 14176-2) Glucose, UA (test Negative Negative code = 365) Ketones, UA (test Negative Negative code = 2514-8) Bilirubin, UA (test Negative Negative code = 27028-5) Blood, UA (test code Negative Negative = 13921-1) Nitrite, UA (test Negative Negative code = 5802-4) Leukocytes, UA (test Negative Negative code = 5799-2) Urobilinogen, UA 0.2 0.2-1.0 (test code = 80106-9) RBC, UA (test code = 2 See_Comment [Autom ated 81746-8) message] The system which generated this result [...] 4 See_Comment [Automate d (test code = 46222-8) messag e] The system which generated this result transmit ajay reference range : /HPF. The reference range was not used to interpret this result as normal/abnormal . Specimen Source (test Urine, Clean code = 2795) Catch JAYDE (test code = JAYDE) Tax Commissioner ID - tech Lab Interpretation Abnormal (test code = 12542-0) [facility] w/ [id number] 07:01:05 Test Item Value Reference Range Interpretation Comments Color, UA (test code Yellow = 5778-6) Clarity, UA (test Clear code = 5767-9) Specific Cyrus, UA >1.050 1.001-1.035 H (test code = 5811-5) pH, UA (test code = 9.0 5.0-8.0 H 5803-2) Protein, UA (test 70 mg/dL Negative A code = 40140-3) Glucose, UA (test Negative Negative code = 365) Ketones, UA (test Negative Negative code = 2514-8) Bilirubin, UA (test Negative Negative code = 60151-2) Blood, UA (test code Negative Negative = 86813-9) Nitrite, UA (test Negative Negative code = 5802-4) Leukocytes, UA (test Negative Negative code = 5799-2) Urobilinogen, UA 0.2 0.2-1.0 (test code = 99512-8) RBC, UA (test code = 2 See_Comment [Autom ated 49641-0) message] The system which generated this result [...] 4 See_Comment [Automate d (test code = 43376-8) messag e] The system which generated this result transmit ajay reference range : /HPF. The reference range was not used to interpret this result as normal/abnormal . Specimen Source (test Urine, Clean code = 2795) Catch JAYDE (test code = JAYDE) Tax Commissioner ID - tech Lab Interpretation Abnormal (test code = 30595-2) [facility] w/ [id number] 07:01:05 Test Item Value Reference Range Interpretation Comments Color, UA (test code Yellow = 5778-6) Clarity, UA (test Clear code = 5767-9) Specific Cyrus, UA >1.050 1.001-1.035 H (test code = 5811-5) pH, UA (test code = 9.0 5.0-8.0 H 5803-2) Protein, UA (test 70 mg/dL Negative A code = 43791-0) Glucose, UA (test Negative Negative code = 365) Ketones, UA (test Negative Negative code = 2514-8) Bilirubin, UA (test Negative Negative code = 42716-1) Blood, UA (test code Negative Negative = 71077-4) Nitrite, UA (test Negative Negative code = 5802-4) Leukocytes, UA (test Negative Negative code = 5799-2) Urobilinogen, UA 0.2 0.2-1.0 (test code = 20796-8) RBC, UA (test code = 2 See_Comment [Autom ated 36333-5) message] The system which generated this result [...] 4 See_Comment [Automate d (test code = 64519-8) messag e] The system which generated this result transmit ajay reference range : /HPF. The reference range was not used to interpret this result as normal/abnormal . Specimen Source (test Urine, Clean code = 2795) Catch JAYDE (test code = JAYDE) Tax Commissioner ID - tech Lab Interpretation Abnormal (test code = 39449-8) [facility]/ Qyuzdzspjww0735-48-10 07:01:05 Test Item Value Reference Range Interpretation Comments Color, UA (test code Yellow = 5778-6) Clarity, UA (test Clear code = 5767-9) Specific Cyrus, UA >1.050 1.001-1.035 H (test code = 5811-5) pH, UA (test code = 9.0 5.0-8.0 H 5803-2) Protein, UA (test 70 mg/dL Negative A code = 75636-8) Glucose, UA (test Negative Negative code = 365) Ketones, UA (test Negative Negative code = 2514-8) Bilirubin, UA (test Negative Negative code = 28238-5) Blood, UA (test code Negative Negative = 88093-2) Nitrite, UA (test Negative Negative code = 5802-4) Leukocytes, UA (test Negative Negative code = 5799-2) Urobilinogen, UA 0.2 0.2-1.0 (test code = 61619-6) RBC, UA (test code = 2 See_Comment [Autom ated 95675-0) message] The system which generated this result [...] 4 See_Comment [Automate d (test code = 76876-9) messag e] The system which generated this result transmit ajay reference range : /HPF. The reference range was not used to interpret this result as normal/abnormal . Specimen Source (test Urine, Clean code = 2795) Catch JAYDE (test code = JAYDE) Tax Commissioner ID - tech Lab Interpretation Abnormal (test code = 34238-9) [facility] [id number] 07:01:05 Test Item Value Reference Range Interpretation Comments Color, UA (test code Yellow = 5778-6) Clarity, UA (test Clear code = 5767-9) Specific Cyrus, UA >1.050 1.001-1.035 H (test code = 5811-5) pH, UA (test code = 9.0 5.0-8.0 H 5803-2) Protein, UA (test 70 mg/dL Negative A code = 48340-8) Glucose, UA (test Negative Negative code = 365) Ketones, UA (test Negative Negative code = 2514-8) Bilirubin, UA (test Negative Negative code = 08469-2) Blood, UA (test code Negative Negative = 38386-3) Nitrite, UA (test Negative Negative code = 5802-4) Leukocytes, UA (test Negative Negative code = 5799-2) Urobilinogen, UA 0.2 0.2-1.0 (test code = 87317-8) RBC, UA (test code = 2 See_Comment [Autom ated 66475-7) message] The system which generated this result [...] 4 See_Comment [Automate d (test code = 10808-1) messag e] The system which generated this result transmit ajay reference range : /HPF. The reference range was not used to interpret this result as normal/abnormal . Specimen Source (test Urine, Clean code = 2795) Catch JAYDE (test code = JAYDE) Tax Commissioner ID - tech Lab Interpretation Abnormal (test code = 26128-9) [facility] [id number] 07:01:05 Test Item Value Reference Range Interpretation Comments Color, UA (test code Yellow = 5778-6) Clarity, UA (test Clear code = 5767-9) Specific Cyrus, UA >1.050 1.001-1.035 H (test code = 5811-5) pH, UA (test code = 9.0 5.0-8.0 H 5803-2) Protein, UA (test 70 mg/dL Negative A code = 76593-4) Glucose, UA (test Negative Negative code = 365) Ketones, UA (test Negative Negative code = 2514-8) Bilirubin, UA (test Negative Negative code = 01016-1) Blood, UA (test code Negative Negative = 00862-7) Nitrite, UA (test Negative Negative code = 5802-4) Leukocytes, UA (test Negative Negative code = 5799-2) Urobilinogen, UA 0.2 0.2-1.0 (test code = 91921-4) RBC, UA (test code = 2 See_Comment [Autom ated 57751-7) message] The system which generated this result [...] 4 See_Comment [Automate d (test code = 06268-5) messag e] The system which generated this result transmit ajay reference range : /HPF. The reference range was not used to interpret this result as normal/abnormal . Specimen Source (test Urine, Clean code = 2795) Catch JAYDE (test code = JAYDE) Tax Commissioner ID - tech Lab Interpretation Abnormal (test code = 88488-3) [facility] Dmimwsbawnv6069-01-84 07:01:05 Test Item Value Reference Range Interpretation Comments Color, UA (test code Yellow = 5778-6) Clarity, UA (test Clear code = 5767-9) Specific Cyrus, UA >1.050 1.001-1.035 H (test code = 5811-5) pH, UA (test code = 9.0 5.0-8.0 H 5803-2) Protein, UA (test 70 mg/dL Negative A code = 32071-1) Glucose, UA (test Negative Negative code = 365) Ketones, UA (test Negative Negative code = 2514-8) Bilirubin, UA (test Negative Negative code = 35045-6) Blood, UA (test code Negative Negative = 47765-6) Nitrite, UA (test Negative Negative code = 5802-4) Leukocytes, UA (test Negative Negative code = 5799-2) Urobilinogen, UA 0.2 0.2-1.0 (test code = 75016-9) RBC, UA (test code = 2 See_Comment [Autom ated 06714-4) message] The system which generated this result [...] 4 See_Comment [Automate d (test code = 76911-2) messag e] The system which generated this result transmit ajay reference range : /HPF. The reference range was not used to interpret this result as normal/abnormal . Specimen Source (test Urine, Clean code = 2795) Catch JAYDE (test code = JAYDE) Tax Commissioner ID - tech Lab Interpretation Abnormal (test code = 63200-9) [facility] [id number] 07:01:05 Test Item Value Reference Range Interpretation [...] (test code Urine, Clean Catch = 2795) Tax Commissioner ID - jmymOCDBUHSWK6351-14-53 06:54:51 Test Item Value Reference Range Interpretation Comments MAGNESIUM (BEAKER) (test code = 2.1 mg/dL 1.6-2.6 627) Tax Commissioner ID - BAN MBASIC METABOLIC [id number] 06:54:50 Test Item Value Reference Range Interpretation [...] = 358) GLUCOSE RANDOM 87 mg/dL 70-105 (Portable ZooDAWN) (test code = 652) CALCIUM (ANA) 9.4 mg/dL 8.4-10.2 (test code = 697) EGFR (ANA) 87 Interpretatio n of eGFR (test code [...] not appl icable for dialysis patien ts Tax Commissioner ID - BAN MTSH/FREE T4 IF [id number] 06:50:48 Test Item Value Reference Range Interpretation Comments THYROID STIMULATING HORMONE 1.889 uIU/mL 0.350-4.940 (Portable ZooDAWN) (test code = 772) Tax Commissioner ID - BAN MHIGH SENSITIVITY TROPONIN [id number] 06:31:22 Test Item Value Reference Range Interpretation Comments HIGH SENSITIVITY < pg/ml See_Comment [Automated message] TROPONIN I (test code = The system which 5012662) generated this result transmitted ref erence range: <=17. Th e reference range was not used to interpr et this result as normal/abnormal . Tax Commissioner ID - BAN MThe WATCH REPAIR TECHNICIAN STAT High Sensitivity Troponin-I results should be used in conjunction with other diagnostic information such as ECG, clinical observations and information, and patient symptoms to aid in the diagnosis of GA.CBC W/PLT COUNT & AUTO [id number] 06:05:36 Test Item Value Reference Range Interpretation Comments WHITE BLOOD CELL COUNT (ANA) 13.2 K/ L 3.5-10.5 H (test code = 775) RED BLOOD CELL COUNT (TARUNAKER) 4.11 M/ L 3.93-5.22 (test code = [...] (test code = 2801) HIGH SENSITIVITY TROPONIN [id number] 22:00:49 Test Item Value Reference Range Interpretation Comments HIGH SENSITIVITY < pg/ml See_Comment [Automated message] TROPONIN I (test code = The system which 5129141) generated this result transmitted ref erence range: <=17. Th e reference range was not used to interpr et this result as normal/abnormal . Tax Commissioner ID - MITCHThe WATCH REPAIR TECHNICIAN STAT High Sensitivity Troponin-I results should be used in conjunction with other diagnostic information such as ECG, clinical observations and information, and patientsymptoms to aid in the diagnosis of GA. CTA, CHEST, ABDOMEN - PELVIS, FOR [id number] 21:55:00Unlisted Reason for Exam - Click Yes and Enter Reason Below->YesUnlisted Reason for Exam->Severe chest pain that radiates to the back [facility]ENTERName: CAROLINE DURAND : 1990 Sex: FFINAL [...] MDReport Verified Date/Time: 09/17/2022 21:55:51 HCG, QUANTITATIVE, [id number] 19:18:36 Test Item Value Reference Range Interpretation Comments GONADOTROPIN, CHORIONIC (HCG) QUANT < mIU/mL 0-10 (BEAKER) (test code = 649) Non- Females: <10 mIU/mL Females: Gestation Age Reference Range(mIU/mL) 0.2-1 Week 5-50 1-2 Weeks 50-500 2-3 Weeks 100-5,000 3-4 Weeks 500-10,000 4-5 Weeks 1,000-50,000 5-6 Weeks 10,000-100,000 6-8 Weeks 15,000- 200,000 2-3 Months 10,000-100,000 Tax Commissioner ID - MITCHSARS-CoV2/RT-PCR (Asymptomatic ONLY)2022-09-17 17:05:31 Test Item Value Reference Interpretation Comments Range SARS-COV2/RT-PCR Negative Negative The SARS-Co V-2 (test code = target nucleic 60182-8) acids are not detected in thi s [...] revoked sooner. Fact Sheet for Healthcare Providers: https://www.[employer]/Documents/Xp ert%20Xpress%20SAR S%20CoV-2/Fact%20S heets/302-3802%20S ARS-COV-2%20HEALTH CARE%20PROVIDERS%2 0FACT%20SHEET.pdf Fact Sheet for Healthcare Patients: https://www.[employer]/Documents/Xp ert%20Xpress%20SAR S%20CoV-2/Fact%20S heets/302-3801%20S ARS-COV-2%20PATIEN T%20FACT%20SHEET.p df Lab Interpretation Normal (test code = 69940-4) [facility]2022-09-17 17:05:31 Test Item Value Reference Interpretation Comments Range SARS-COV2/RT-PCR Negative Negative The SARS-Co V-2 (test code = target nucleic 72929-5) acids are not detected in thi s [...] revoked sooner. Fact Sheet for Healthcare Providers: https://www.[employer]/Documents/Xp ert%20Xpress%20SAR S%20CoV-2/Fact%20S heets/302-3802%20S ARS-COV-2%20HEALTH CARE%20PROVIDERS%2 0FACT%20SHEET.pdf Fact Sheet for Healthcare Patients: https://www[employer]/Documents/Xp ert%20Xpress%20SAR S%20CoV-2/Fact%20S heets/302-3801%20S ARS-COV-2%20PATIEN T%20FACT%20SHEET.p df Lab Interpretation Normal (test code = 59905-3) [facility]2022-09-17 17:05:31 Test Item Value Reference Interpretation Comments Range SARS-COV2/RT-PCR Negative Negative The SARS-Co V-2 (test code = target nucleic 60986-3) acids are not detected in thi s [...] revoked sooner. Fact Sheet for Healthcare Providers: https://www.[employer]/Documents/Xp ert%20Xpress%20SAR S%20CoV-2/Fact%20S heets/302-3802%20S ARS-COV-2%20HEALTH CARE%20PROVIDERS%2 0FACT%20SHEET.pdf Fact Sheet for Healthcare Patients: https://www.[employer]/Documents/Xp ert%20Xpress%20SAR S%20CoV-2/Fact%20S heets/302-3801%20S ARS-COV-2%20PATIEN T%20FACT%20SHEET.p df Lab Interpretation Normal (test code = 80779-2) [facility]2022-09-17 17:05:31 Test Item Value Reference Interpretation Comments Range SARS-COV2/RT-PCR Negative Negative The SARS-Co V-2 (test code = target nucleic 83951-1) acids are not detected in thi s [...] revoked sooner. Fact Sheet for Healthcare Providers: https://www.[employer]/Documents/Xp ert%20Xpress%20SAR S%20CoV-2/Fact%20S heets/302-3802%20S ARS-COV-2%20HEALTH CARE%20PROVIDERS%2 0FACT%20SHEET.pdf Fact Sheet for Healthcare Patients: https://wwwMacromill/Documents/Xp ert%20Xpress%20SAR S%20CoV-2/Fact%20S heets/302-3801%20S ARS-COV-2%20PATIEN T%20FACT%20SHEET.p df Lab Interpretation Normal (test code = 42116-4) [facility]2022-09-17 17:05:31 Test Item Value Reference Interpretation Comments Range SARS-COV2/RT-PCR Negative Negative The SARS-Co V-2 (test code = target nucleic 09155-0) acids are not detected in thi s [...] revoked sooner. Fact Sheet for Healthcare Providers: https://www.[employer]/Documents/Xp ert%20Xpress%20SAR S%20CoV-2/Fact%20S heets/302-3802%20S ARS-COV-2%20HEALTH CARE%20PROVIDERS%2 0FACT%20SHEET.pdf Fact Sheet for Healthcare Patients: https://www.[employer]/Documents/Xp ert%20Xpress%20SAR S%20CoV-2/Fact%20S heets/302-3801%20S ARS-COV-2%20PATIEN T%20FACT%20SHEET.p df Lab Interpretation Normal (test code = 56684-9) [facility]2022-09-17 17:05:31 Test Item Value Reference Interpretation Comments Range SARS-COV2/RT-PCR Negative Negative The SARS-Co V-2 (test code = target nucleic 01250-8) acids are not detected in thi s [...] revoked sooner. Fact Sheet for Healthcare Providers: https://www.[employer]/Documents/Xp ert%20Xpress%20SAR S%20CoV-2/Fact%20S heets/302-3802%20S ARS-COV-2%20HEALTH CARE%20PROVIDERS%2 0FACT%20SHEET.pdf Fact Sheet for Healthcare Patients: https://www.[employer]/Documents/Xp ert%20Xpress%20SAR S%20CoV-2/Fact%20S heets/302-3801%20S ARS-COV-2%20PATIEN T%20FACT%20SHEET.p df Lab Interpretation Normal (test code = 26068-2) [facility]2022-09-17 17:05:31 Test Item Value Reference Interpretation Comments Range SARS-COV2/RT-PCR Negative Negative The SARS-Co V-2 (test code = target nucleic 03500-4) acids are not detected in thi s [...] revoked sooner. Fact Sheet for Healthcare Providers: https://www.[employer]/Documents/Xp ert%20Xpress%20SAR S%20CoV-2/Fact%20S heets/302-3802%20S ARS-COV-2%20HEALTH CARE%20PROVIDERS%2 0FACT%20SHEET.pdf Fact Sheet for Healthcare Patients: https://www.[employer]/Documents/Xp ert%20Xpress%20SAR S%20CoV-2/Fact%20S heets/302-3801%20S ARS-COV-2%20PATIEN T%20FACT%20SHEET.p df Lab Interpretation Normal (test code = 48508-4) [facility]2022-09-17 17:05:31 Test Item Value Reference Interpretation Comments Range SARS-COV2/RT-PCR Negative Negative The SARS-Co V-2 (test code = target nucleic 73935-9) acids are not detected in thi s [...] revoked sooner. Fact Sheet for Healthcare Providers: https://www.[employer]/Documents/Xp ert%20Xpress%20SAR S%20CoV-2/Fact%20S heets/302-3802%20S ARS-COV-2%20HEALTH CARE%20PROVIDERS%2 0FACT%20SHEET.pdf Fact Sheet for Healthcare Patients: https://www.[employer]/Documents/Xp ert%20Xpress%20SAR S%20CoV-2/Fact%20S heets/302-3801%20S ARS-COV-2%20PATIEN T%20FACT%20SHEET.p df Lab Interpretation Normal (test code = 64119-0) [facility])2022-09-17 17:05:31 Test Item Value Reference Range Interpretation Comments SARS-COV2/RT-PCR Negative Negative The SARS-Co V-2 target (test code = nucleic acids a re not 3167011) detected in thi s specimen. Negative result [...] revoked sooner. Fact Sheet for Healthcare Providers: https://www.[employer]/Documents/Xpert%20Xpress%20SARS%20CoV-2/Fact%20Sheets/302-3802%64HSWQ-DTE-0%20 HEALTHCARE%20PROVIDERS%20FACT%20SHEET.pdf Fact Sheet for Healthcare Patients: https://www.[employer]/Documents/Xpert%20Xp ress%20SARS%20CoV-2/Fact%20Sheets/302-3801%46DESM-HZO-6%20PATIENT%20FACT%20SHEET .pdfURINALYSIS W/ [id number] 16:55:30 Test Item Value Reference Range Interpretation [...] (test code Urine, Clean Catch = 2795) Tax Commissioner ID - [auto]Tax Commissioner ID - techB-TYPE NATRIURETIC FACTOR (BNP)2022-09-17 16:53:49 Test Item Value Reference Range Interpretation Comments B-TYPE NATRIURETIC PEPTIDE (BEAKER) < pg/mL 0-100 (test code = 700) Tax Commissioner ID - MITCHHIGH SENSITIVITY TROPONIN [id number] 16:50:10 Test Item Value Reference Range Interpretation Comments HIGH SENSITIVITY < pg/ml See_Comment [Automated message] TROPONIN I (test code = The system which [id number]) generated this result transmitted ref erence range: <=17. Th e reference range was not used to interpr et this result as normal/abnormal . Tax Commissioner ID - MITCHThe WATCH REPAIR TECHNICIAN STAT High Sensitivity Troponin-I results should be used in conjunction with other diagnostic information such as ECG, clinical observations and information, and patientsymptoms to aid in the diagnosis of GA. COMPREHENSIVE METABOLIC [id number] 16:46:05 Test Item Value Reference Range Interpretation [...] not appl icable for dialysis patien ts Tax Commissioner ID - MITCHLACTIC ACID, [id number] 16:29:26 Test Item Value Reference Range Interpretation Comments LACTATE BLOOD VENOUS (2) (BEAKER) 1.86 mmol/L 0.50-2.20 (test code = 6382) Tax Commissioner ID - BAN MCBC W/PLT COUNT & AUTO [id number] 16:21:12 Test Item Value Reference Range Interpretation [...] (test code = 2801) RAD, CHEST, 2 [id number] 14:55:00Reason for exam:->SHORTNESS OF BREATHReason for exam:->[facility] 1990 Sex: FFINAL REPORT INDICATION: SHORTNESS OF BREATHCHEST PAIN COMPARISON: None TECHNIQUE: AP and lateral view of the chest. FINDINGS: Lungs and pleura: Clear lungs. No effusion.Heart and mediastinum: Normal heart size. Unremarkable mediastinal contours.Osseous structures: No acute abnormality.Other: None. IMPRESSION: No acute intrathoracic abnormality. Signed: Joanna Moser MDReport Verified Date/Time: 09/17/2022 14:55:44 Reading Location: [address] Reading Room CULTURE, [id number] 00:00:00 Test Item Value Reference Range Interpretation Comments CULTURE, URINE (test SPECIMEN NUMBER: code = 54567) [id number] CULTURE, [id number] 00:00:00 Test Item Value Reference Range Interpretation Comments CULTURE, URINE (test SPECIMEN NUMBER: code = 69137) [id number] CULTURE, [id number] 00:00:00 Test Item Value Reference Range Interpretation Comments CULTURE, URINE (test SPECIMEN NUMBER: code = 10006) [id number] CULTURE, [id number] 00:00:00 Test Item Value Reference Range Interpretation Comments CULTURE, URINE (test SPECIMEN NUMBER: code = 56225) [id number] JOSE CARLOS [id number] 00:00:00 Test Item Value Reference Range Interpretation Comments ANTI-NUCLEAR ANTIBODIES (test NEGATIVE code = 3506) JOSE CARLOS PATTERN (REPORTED SEE BELOW TITER) (test code = 55523) HOMOGENEOUS (test code = NEGATIVE TITER 36996) SPECKLED (test code = 150488) NEGATIVE TITER DENSE FINE SPECKLED (test code NEGATIVE TITER = 36302) CENTROMERE (test code = NEGATIVE TITER 066237) COARSE SPECKLED (test code = NEGATIVE TITER 418677) DISCRETE NUCLEAR DOTS (test NEGATIVE TITER code = 164063) NUCLEOLAR (test code = 678944) NEGATIVE TITER NUCLEAR MEMBRANE (test code = NEGATIVE TITER 379923) CYTO. RETICULAR (RAMANDEEP) (test NEGATIVE code = 962868) COMMENTS (test code = 729827) NONE METHOD (test code = 33770) (NOTE) JOSE CARLOS [id number] 00:00:00 Test Item Value Reference Range Interpretation Comments ANTI-NUCLEAR ANTIBODIES (test NEGATIVE code = 3506) JOSE CARLOS PATTERN (REPORTED SEE BELOW TITER) (test code = 03532) HOMOGENEOUS (test code = NEGATIVE TITER 62054) SPECKLED (test code = 757149) NEGATIVE TITER DENSE FINE SPECKLED (test code NEGATIVE TITER = 41358) CENTROMERE (test code = NEGATIVE TITER 969703) COARSE SPECKLED (test code = NEGATIVE TITER 843800) DISCRETE NUCLEAR DOTS (test NEGATIVE TITER code = 746567) NUCLEOLAR (test code = 115904) NEGATIVE TITER NUCLEAR MEMBRANE (test code = NEGATIVE TITER 706491) CYTO. RETICULAR (RAMANDEEP) (test NEGATIVE code = 091874) COMMENTS (test code = 061187) NONE METHOD (test code = 19487) (NOTE) JOSE CARLOS [id number] 00:00:00 Test Item Value Reference Range Interpretation Comments ANTI-NUCLEAR ANTIBODIES (test NEGATIVE code = 3506) JOSE CARLOS PATTERN (REPORTED SEE BELOW TITER) (test code = 74957) HOMOGENEOUS (test code = NEGATIVE TITER 72404) SPECKLED (test code = 791350) NEGATIVE TITER DENSE FINE SPECKLED (test code NEGATIVE TITER = 37948) CENTROMERE (test code = NEGATIVE TITER 705885) COARSE SPECKLED (test code = NEGATIVE TITER 705335) DISCRETE NUCLEAR DOTS (test NEGATIVE TITER code = 267084) NUCLEOLAR (test code = 940609) NEGATIVE TITER NUCLEAR MEMBRANE (test code = NEGATIVE TITER 311759) CYTO. RETICULAR (RAMANDEEP) (test NEGATIVE code = 341569) COMMENTS (test code = 145545) NONE METHOD (test code = 64909) (NOTE) JOSE CARLOS [id number] 00:00:00 Test Item Value Reference Range Interpretation Comments ANTI-NUCLEAR ANTIBODIES (test NEGATIVE code = 3506) JOSE CARLOS PATTERN (REPORTED SEE BELOW TITER) (test code = 09945) HOMOGENEOUS (test code = NEGATIVE TITER 08917) SPECKLED (test code = 738670) NEGATIVE TITER DENSE FINE SPECKLED (test code NEGATIVE TITER = 95383) CENTROMERE (test code = NEGATIVE TITER 544909) COARSE SPECKLED (test code = NEGATIVE TITER 408955) DISCRETE NUCLEAR DOTS (test NEGATIVE TITER code = 492775) NUCLEOLAR (test code = 813654) NEGATIVE TITER NUCLEAR MEMBRANE (test code = NEGATIVE TITER 997013) CYTO. RETICULAR (RAMANDEEP) (test NEGATIVE code = 542625) COMMENTS (test code = 363417) NONE METHOD (test code = 00442) (NOTE) RHEUMATOID FACTOR, [id number] 00:00:00 Test Item Value Reference Range Interpretation Comments RHEUMATOID FACTOR, QUANT (test code 11 IU/ML = 3502) RHEUMATOID FACTOR, [id number] 00:00:00 Test Item Value Reference Range Interpretation Comments RHEUMATOID FACTOR, QUANT (test code 11 IU/ML = 3502) RHEUMATOID FACTOR, [id number] 00:00:00 Test Item Value Reference Range Interpretation Comments RHEUMATOID FACTOR, QUANT (test code 11 IU/ML = 3502) C-REACTIVE [id number] 00:00:00 Test Item Value Reference Range Interpretation Comments C-REACTIVE PROTEIN (test code = 0.5 MG/DL 3513) C-REACTIVE [id number] 00:00:00 Test Item Value Reference Range Interpretation Comments C-REACTIVE PROTEIN (test code = 0.5 MG/DL 3513) SEDIMENTATION [id number] 00:00:00 Test Item Value Reference Range Interpretation Comments SEDIMENTATION RATE (test code = 23 MM/HOUR 1017) SEDIMENTATION [id number] 00:00:00 Test Item Value Reference Range Interpretation Comments SEDIMENTATION RATE (test code = 23 MM/HOUR 1017) CCP [id number] 00:00:00 Test Item Value Reference Range Interpretation Comments CCP IgG (test code = 04164) <0.5 U/ML CCP [id number] 00:00:00 Test Item Value Reference Range Interpretation Comments CCP IgG (test code = 54836) <0.5 U/ML CCP [id number] 00:00:00 Test Item Value Reference Range Interpretation Comments CCP IgG (test code = 73083) <0.5 U/ML COMPREHENSIVE METABOLIC [id number] 00:00:00 Test Item Value Reference Range Interpretation Comments GLUCOSE (test code = 2217) 88 MG/DL BUN (test code = 2208) 14 MG/DL CREATININE (test code = 2214) 0.70 MG/DL eGFR (2020 CKD-EPI) (test 117 ML/MIN/1.73 code = 40100) CALC BUN/CREAT (test code = 20 RATIO 2235) SODIUM (test code = 2231) 142 MEQ/L POTASSIUM (test code = 2228) 4.2 MEQ/L CHLORIDE (test code = 2215) 104 MEQ/L CARBON DIOXIDE (test code = 25 MEQ/L 6) CALCIUM (test code = 2209) 9.2 MG/DL [...] code = 2219) 24 U/L COMPREHENSIVE METABOLIC [id number] 00:00:00 Test Item Value Reference Range Interpretation Comments GLUCOSE (test code = 2217) 88 MG/DL BUN (test code = 2208) 14 MG/DL CREATININE (test code = 2214) 0.70 MG/DL eGFR (2020 CKD-EPI) (test 117 ML/MIN/1.73 code = 05511) CALC BUN/CREAT (test code = 20 RATIO [...] ALT (test code = 2219) 24 U/L [id number] 00:00:00 Test Item Value Reference Range Interpretation Comments TSH, THIRD GENERATION (test code 1.670 UIU/ML = 2821) [id number] 00:00:00 Test Item Value Reference Range Interpretation Comments TSH, THIRD GENERATION (test code 1.670 UIU/ML = 2821) [id number] 00:00:00 Test Item Value Reference Range Interpretation Comments TSH, THIRD GENERATION (test code 1.670 UIU/ML = 2821) LIPID [id number] 00:00:00 Test Item Value Reference Range Interpretation Comments CHOLESTEROL (test code = 2210) 132 MG/DL TRIGLYCERIDES (test code = 2232) 105 MG/DL HDL CHOLESTEROL (test code = 2220) 33 MG/DL CALC LDL CHOL (test code = 2237) 80 MG/DL RISK RATIO LDL/HDL (test code = 2.42 RATIO 2238) LIPID [id number] 00:00:00 Test Item Value Reference Range Interpretation Comments CHOLESTEROL (test code = 2210) 132 MG/DL TRIGLYCERIDES (test code = 2232) 105 MG/DL HDL CHOLESTEROL (test code = 2220) 33 MG/DL CALC LDL CHOL (test code = 2237) 80 MG/DL RISK RATIO LDL/HDL (test code = 2.42 RATIO 2238) RHEUMATOID FACTOR, [id number] 00:00:00 Test Item Value Reference Range Interpretation Comments RHEUMATOID FACTOR, QUANT (test code 11 IU/ML = 3502) RHEUMATOID FACTOR, [id number] 00:00:00 Test Item Value Reference Range Interpretation Comments RHEUMATOID FACTOR, QUANT (test code 11 IU/ML = 3502) RHEUMATOID FACTOR, [id number] 00:00:00 Test Item Value Reference Range Interpretation Comments RHEUMATOID FACTOR, QUANT (test code 11 IU/ML = 3502) C-REACTIVE [id number] 00:00:00 Test Item Value Reference Range Interpretation Comments C-REACTIVE PROTEIN (test code = 0.5 MG/DL 3513) C-REACTIVE [id number] 00:00:00 Test Item Value Reference Range Interpretation Comments C-REACTIVE PROTEIN (test code = 0.5 MG/DL 3513) SEDIMENTATION [id number] 00:00:00 Test Item Value Reference Range Interpretation Comments SEDIMENTATION RATE (test code = 23 MM/HOUR 1017) SEDIMENTATION [id number] 00:00:00 Test Item Value Reference Range Interpretation Comments SEDIMENTATION RATE (test code = 23 MM/HOUR 1017) CCP [id number] 00:00:00 Test Item Value Reference Range Interpretation Comments CCP IgG (test code = 99847) <0.5 U/ML CCP [id number] 00:00:00 Test Item Value Reference Range Interpretation Comments CCP IgG (test code = 21890) <0.5 U/ML CCP [id number] 00:00:00 Test Item Value Reference Range Interpretation Comments CCP IgG (test code = 06388) <0.5 U/ML COMPREHENSIVE METABOLIC [id number] 00:00:00 Test Item Value Reference Range Interpretation Comments GLUCOSE (test code = 2217) 88 MG/DL BUN (test code = 2208) 14 MG/DL CREATININE (test code = 2214) 0.70 MG/DL eGFR (2020 CKD-EPI) (test 117 ML/MIN/1.73 code = 45688) CALC BUN/CREAT (test code = 20 RATIO 2235) SODIUM (test code = 2231) 142 MEQ/L POTASSIUM (test code = 2228) 4.2 MEQ/L CHLORIDE (test code = 2215) 104 MEQ/L CARBON DIOXIDE (test code = 25 MEQ/L 2206) CALCIUM (test code = 2209) 9.2 MG/DL PROTEIN, TOTAL (test code = 6.6 G/DL 222) ALBUMIN (test code = 2201) 3.9 G/DL CALC GLOBULIN (test code = 2.7 G/DL 2240) CALC A/G RATIO (test code = 1.4 RATIO 2234) BILIRUBIN, TOTAL (test code = 0.2 MG/DL 2206) ALKALINE PHOSPHATASE (test 122 U/L code = 2204) AST (test code = 2218) 19 U/L ALT (test code = 2219) 24 U/L COMPREHENSIVE METABOLIC [id number] 00:00:00 Test Item Value Reference Range Interpretation Comments GLUCOSE (test code = 2217) 88 MG/DL BUN (test code = 2208) 14 MG/DL CREATININE (test code = 2214) 0.70 MG/DL eGFR (2020 CKD-EPI) (test 117 ML/MIN/1.73 code = 19779) CALC BUN/CREAT (test code = 20 RATIO 2235) SODIUM (test code = 2231) 142 MEQ/L POTASSIUM (test code = 2228) 4.2 MEQ/L CHLORIDE (test code = 2215) 104 MEQ/L CARBON DIOXIDE (test code = 25 MEQ/L 2206) CALCIUM (test code = 2209) 9.2 MG/DL [...] ALT (test code = 2219) 24 U/L [id number] 00:00:00 Test Item Value Reference Range Interpretation Comments TSH, THIRD GENERATION (test code 1.670 UIU/ML = 2821) [id number] 00:00:00 Test Item Value Reference Range Interpretation Comments TSH, THIRD GENERATION (test code 1.670 UIU/ML = 2821) [id number] 00:00:00 Test Item Value Reference Range Interpretation Comments TSH, THIRD GENERATION (test code 1.670 UIU/ML = 2821) LIPID [id number] 00:00:00 Test Item Value Reference Range Interpretation Comments CHOLESTEROL (test code = 2210) 132 MG/DL TRIGLYCERIDES (test code = 2232) 105 MG/DL HDL CHOLESTEROL (test code = 2220) 33 MG/DL CALC LDL CHOL (test code = 2237) 80 MG/DL RISK RATIO LDL/HDL (test code = 2.42 RATIO 2238) LIPID [id number] 00:00:00 Test Item Value Reference Range Interpretation Comments CHOLESTEROL (test code = 2210) 132 MG/DL TRIGLYCERIDES (test code = 2232) 105 MG/DL HDL CHOLESTEROL (test code = 2220) 33 MG/DL CALC LDL CHOL (test code = 2237) 80 MG/DL RISK RATIO LDL/HDL (test code = 2.42 RATIO 2238) DRUGS OF ABUSE SCREEN [id number] 22:06:00 Test Item Value Reference Range Interpretation [...] (test code = TRICYCU) Neg NEGATIVE HCG [id number] 22:02:00 Test Item Value Reference Range Interpretation [...] after 48 hours toconfirm . URINALYSIS DIPSTICK [id number] 21:55:00 Test Item Value Reference Range Interpretation [...] code = LEUU) - XR CHEST 1 [id number] 21:55:00 [facility] 1990 Sex: FPatient Name: CAROLINE DURAND Unit No: [id number] EXAMS: CPT: [id number] XR CHEST 1 V [id number] PA CHEST, 03/26/2022. Comparison: None. CLINICAL: Chest [...] BATCH NO: N/A Name: CAROLINE DURAND [facility] Phys: [place] [id number] [facility] : 1990 Age: 31 Sex: [place] [address] Loc: [place] Date: 03/26/2022 Status: PRE ER PH: [phone] FAX: PAGE 1 Signed ReportCBC W/AUTO [id number] 21:50:00 Test Item Value Reference Range Interpretation [...] 0.9 10e3/mm3 0.2-1.1 N MX#) TROPONIN I [id number] 21:49:00 Test Item Value Reference Range Interpretation [...] if similar methodology is used. CHEMISTRY 8 [id number] 21:48:00 Test Item Value Reference Range Interpretation [...]
[2022-10-25 20:00] LABS: Urine Blood Negative (Negative); Urine Glucose Negative (Negative); Urine Protein Negative (Negative); Urine pH 7.5 (5.0-7.0)
[2022-10-25 20:31] LABS: Urine Bacteria <20 /HPF (<20); Urine RBC <5 /HPF (None Seen)
[2022-10-25 20:31] LABS: Absolute Lymphocytes (CBC) 2.6 K/uL (0.7-4.9); Hematocrit 36.5 % (36.0-45.0); Lymphocytes % 23.1 % (15.3-44.8); MCV 89.2 fL (80-100); RBC Red Blood Cell Count 4.09 M/uL (3.86-4.86)
[2022-10-25 20:42] LABS: Albumin 3.5 g/dL (3.4-5.0); Bilirubin Total 0.3 mg/dL (0.2-1.0); Potassium 3.7 mmol/L (3.5-5.1); Protein, Total 7.3 g/dL (6.4-8.2)
--- NOTE | 2022-10-26 00:32 | EDPHYS ---
Physician Documentation [facility] Name: Erica Tucker Age: 32 yrs Sex: Female : 1990 Arrival Date: 10/25/2022 Time: 17:53 Bed 18 Private MD: ED Physician Rey Almanzar HPI: 10/25 20:00 This 32 yrs old Female presents to ER via Ambulatory with complaints of Post Surgical cp Pain. 20:00 The patient presents with abdominal pain right lower quadrant. Onset: The cp symptoms/episode began/occurred patient reports having appendectomy by DR Garcia on 10/16/2022 and since surgery continued pain to RLQ. Patient reports pain worse over past 2 days and admits to running out of prescribed hydrocodone. 20:00 Associated signs and symptoms: Pertinent negatives: anorexia, chest pain, constipation, cp diarrhea, dysuria, fever, headache, hematuria, vaginal discharge. Modifying factors: the symptoms are aggravated by movement, pressure, walking. Severity of pain: in the emergency department the pain is unchanged despite home interventions. Patient with history of appendectomy by DR Garcia on 10/16/2022. Patient has been seen in this ED multiple times since surgery for complaints of RLQ abdomen pain. Historical: - Allergies: 17:58 PENICILLINS; hb 17:58 Phenergan; hb - PMHx: 19:19 Atrial fibrillation; depressive disorder; Hypothyroidism; pseudotumor cerebri; kd3 Hypercholesterolemia; Cerebrovascular accident; TIA; - PSHx: 19:19 Appendectomy; [place] teeth extraction; Myringotomy and insertion of tympanic kd3 ventilation tube; - Immunization history:: Adult Immunizations up to date. - Social history:: Smoking status: unknown. ROS: 20:05 Constitutional: Negative for body aches, chills, fever, poor PO intake. cp 20:05 Eyes: Negative for injury, pain, redness, and discharge. cp 20:05 ENT: Negative for drainage from ear(s), ear pain, sore throat, difficulty swallowing, difficulty handling secretions. 20:05 Cardiovascular: Negative for chest pain, edema, palpitations. 20:05 Respiratory: Negative for cough, shortness of breath, wheezing. 20:05 Abdomen/GI: Positive for abdominal pain, nausea, Negative for diarrhea, constipation, active vomiting. 20:05 Back: Negative for pain at rest, pain with movement, radiated pain. 20:05 : Negative for urinary symptoms, vaginal bleeding, vaginal discharge. 20:05 Skin: Negative for cellulitis, rash. 20:05 Neuro: Negative for altered mental status, dizziness, headache, weakness. 20:05 All other systems are negative. Exam: 20:10 Constitutional: The patient appears in no acute distress, alert, awake, non-toxic, well cp developed, well nourished, obese. 20:10 Head/Face: Normocephalic, atraumatic. cp 20:10 Eyes: Periorbital structures: appear normal, Conjunctiva: normal, no exudate, no injection, Sclera: no appreciated abnormality, Lids and lashes: appear normal, bilaterally. 20:10 ENT: External ear(s): are unremarkable, Nose: is normal, Mouth: Lips: moist, Oral mucosa: moist, Posterior pharynx: Airway: no evidence of obstruction, patent. 20:10 Chest/axilla: Inspection: normal, Palpation: is normal, no crepitus, no tenderness. 20:10 Cardiovascular: Rate: normal, Rhythm: regular. 20:10 Respiratory: the patient does not display signs of respiratory distress, Respirations: normal, no use of accessory muscles, no retractions, labored breathing, is not present, Breath sounds: are clear throughout, no decreased breath sounds, no stridor, no wheezing. 20:10 Abdomen/GI: Inspection: obese Bowel sounds: active, all quadrants, Palpation: soft, in all quadrants, moderate abdominal tenderness, in the right lower quadrant, rebound tenderness, is not appreciated, voluntary guarding, is elicited in the right lower quadrant. 20:10 Back: CVA tenderness, is absent. 20:10 Skin: cellulitis, is not appreciated, no rash present. 20:10 Neuro: Orientation: to person, place \T\ time. Mentation: is normal, Motor: moves all fours, strength is normal, Sensation: is normal. Vital Signs: 17:56 BP 143 / 93; Pulse 97; Resp 16; Temp 98.4; Pulse Ox 100% on R/A; Weight 127.01 kg; hb Height 5 ft. 7 in. (170.18 cm); Pain 8/10; 19:35 BP 105 / 76; Pulse 97; Resp 16; kd3 19:51 BP 113 / 80; Pulse 90; Resp 17; Pulse Ox 98% on R/A; kd3 20:54 BP 101 / 79; Pulse 85; Resp 19; Pulse Ox 98% on R/A; kd3 23:23 BP 113 / 88; Pulse 76; Resp 16; Pulse Ox 100% on R/A; kd3 23:55 BP 109 / 71; Pulse 74; Resp 18; Pulse Ox 100% on R/A; kd3 10/26 00:18 Temp 97.8(TE); kd3 00:36 BP 113 / 70; Pulse 83; Resp 18 S; Pulse Ox 98% on R/A; as6 10/25 17:56 Body Mass Index 43.85 (127.01 kg, 170.18 cm) hb MDM: 10/25 17:59 Patient medically screened. cp 20:00 Differential diagnosis: bowel obstruction, cholecystitis, Cholelithiasis, cp diverticulitis, non-specific abd pain, Ovarian Torsion, Pyelonephritis, Tubal Ovarian Abcess, Ureterolithiasis, urinary tract infection, drug seeking behavior. 20:55 Physician consultation: Bill Garcia MD was called at 20:50, was contacted at 20:50, regarding patient's condition, would like further tests performed, CT abdomen/pelvis. 10/26 00:31 Data reviewed: vital signs, nurses notes, lab test result(s), radiologic studies, CT cp scan. 00:31 Counseling: I had a detailed discussion with the patient and/or guardian regarding: the cp historical points, exam findings, and any diagnostic results supporting the discharge/admit diagnosis, lab results, radiology results, the need for outpatient follow up, DR Garcia next week, to return to the emergency department if symptoms worsen or persist or if there are any questions or concerns that arise at home. Response to treatment: Pain improved. Reviewed results of labs and CT abdomen/pelvis. Discussed these results with DR Garcia who will see patient in clinic next Saturday. 10/25 19:51 Order name: CBC with Diff; Complete Time: 20:48 cp 10/25 20:48 Interpretation: Normal except: WBC 11.30; RDW 17.2. cp 10/25 19:51 Order name: CMP; Complete Time: 20:48 cp 10/25 20:48 Interpretation: Normal except: CL 112; GLOB 3.8; A/G 0.9. cp 10/25 19:51 Order name: Lipase; Complete Time: 20:48 cp 10/25 19:51 Order name: Urine Microscopic Only; Complete Time: 20:48 cp 10/25 20:01 Order name: Urine Dipstick-Ancillary; Complete Time: 20:48 EDMS 10/25 20:51 Interpretation: Normal except. cp 10/25 20:01 Order name: Urine --Ancillary (enter results); Complete Time: 20:48 bb 10/25 20:52 Order name: CT Abd/Pelvis - PO and IV Contrast cp 10/25 19:51 Order name: IV Saline Lock; Complete Time: 20:16 cp 10/25 19:51 Order name: Labs collected and sent; Complete Time: 20:16 cp 10/25 19:51 Order name: Urine Dipstick-Ancillary (obtain specimen); Complete Time: 20:01 cp 10/25 19:51 Order name: Urine Test (obtain specimen); Complete Time: 20:01 cp Administered Medications: 10/25 20:15 Drug: NS 0.9% 1000 ml Route: IV; Rate: 500 ml/hr; Site: left antecubital; kd3 10/26 00:35 Follow up: Response: No adverse reaction; IV Status: Completed infusion; IV Intake: as6 1000ml 10/25 20:16 Drug: Zofran (Ondansetron) 4 mg Route: IVP; Site: left antecubital; kd3 10/26 00:35 Follow up: Response: No adverse reaction as6 10/25 20:16 Drug: morphine 4 mg Route: IVP; Infused Over: 4 mins; Site: left antecubital; kd3 10/26 00:35 Follow up: Response: No adverse reaction as6 10/25 21:08 Drug: Dilaudid (HYDROmorphone) 1 mg Route: IVP; Site: left antecubital; kd3 10/26 00:35 Follow up: Response: No adverse reaction as6 10/25 23:00 Not Given (Patient Refused): Ketorolac 30 mg IVP once as6 23:28 CANCELLED (Physician Discretion): Dilaudid (HYDROmorphone) 1 mg IVP once cp 23:36 Drug: Ketorolac 30 mg Route: IVP; Site: left antecubital; kd3 10/26 00:34 Follow up: Response: No adverse reaction as6 00:14 Drug: Dilaudid (HYDROmorphone) 1 mg Route: IVP; Site: left antecubital; kd3 00:34 Follow up: Response: No adverse reaction as6 Disposition Summary: 10/26/22 00:32 Discharge Ordered Location: Home cp Problem: an ongoing problem cp Symptoms: have improved cp Condition: Stable cp Diagnosis - Lower abdominal pain, unspecified cp Followup: cp - With: Bill Garcia MD - When: 10-31-2022 - Reason: Recheck today's complaints Discharge Instructions: - Discharge Summary Sheet cp - Abdominal Pain, Adult cp Forms: - Medication Reconciliation Form cp - Thank You Letter cp - Antibiotic Education cp - Prescription Opioid Use cp Prescriptions: - Tramadol 50 mg Oral Tablet - take 1 tablet by ORAL route every 8 hours as needed; 12 tablet; Refills: 0, cp Product Selection Permitted Addendum: 10/27/2022 03:07 Co-signature as Attending Physician, Rey Almanzar MD I agree with the assessment and r t plan of care. Signatures: Dispatcher [employer] EDMS Ajay Willingham PA PA cp Kalie Hill RN RN Bruna Finley RN RN kd3 Rey Almanzar MD MD rt Armando Baer RN as6 Corrections: (The following items were deleted from the chart) 10/25 20:48 20:48 Normal except: CL 112. cp cp 20:48 20:48 Normal except: CL 112; GLOB 3.8. cp cp 23:28 23:28 Dilaudid (HYDROmorphone) 1 mg IVP once ordered. cp cp
--- NOTE | 2022-10-26 00:32 | ER ---
Nurse's Notes [facility] Name: Erica Tucker Age: 32 yrs Sex: Female : 1990 Arrival Date: 10/25/2022 Time: 17:53 Bed 18 Private MD: Diagnosis: Lower abdominal pain, unspecified Presentation: 10/25 17:56 Chief complaint: Had appendectomy by Dr. Garcia 10/16, c/o worsening pain and N/V over hb last 2 days. Coronavirus screen: At this time, the client does not indicate any symptoms associated with coronavirus-19. Ebola Screen: No symptoms or risks identified at this time. Initial Sepsis Screen: Does the patient meet any 2 criteria? No. Patient's initial sepsis screen is negative. Does the patient have a suspected source of infection? No. Patient's initial sepsis screen is negative. Risk Assessment: Do you want to hurt yourself or someone else? Patient reports no desire to harm self or others. Onset of symptoms was October 24, 2022. 17:56 Method Of Arrival: Ambulatory 17:56 Acuity: NANCY 3 hb Triage Assessment: 19:10 General: Appears in no apparent distress. Behavior is anxious. Pain: Complains of pain kd3 in right lower quadrant. Neuro: Level of Consciousness is awake, alert, obeys commands, Oriented to person, place, time, situation. Cardiovascular: Patient's skin is warm and dry. Respiratory: Airway is patent Trachea midline Respiratory effort is even, unlabored, Respiratory pattern is regular, symmetrical. GI: Abdomen is non-distended. Historical: - Allergies: 17:58 PENICILLINS; hb 17:58 Phenergan; hb - PMHx: 19:19 Atrial fibrillation; depressive disorder; Hypothyroidism; pseudotumor cerebri; kd3 Hypercholesterolemia; Cerebrovascular accident; TIA; - PSHx: 19:19 Appendectomy; [place] teeth extraction; Myringotomy and insertion of tympanic kd3 ventilation tube; - Immunization history:: Adult Immunizations up to date. - Social history:: Smoking status: unknown. Screenin:18 [facility] ED Fall Risk Assessment (Adult) History of falling in the last 3 months, kd3 including since admission No falls in past 3 months (0 pts) Confusion or Disorientation No (0 pts) Intoxicated or Sedated No (0 pts) Impaired Gait No (0 pts) Mobility Assist Device Used No (0 pt) Altered Elimination No (0 pt) Score/Fall Risk Level 0 - 2 = Low Risk. Abuse screen: Denies threats or abuse. Denies injuries from another. Nutritional screening: No deficits noted. Tuberculosis screening: No symptoms or risk factors identified. Assessment: 19:18 General: Appears uncomfortable, Behavior is anxious. Pain: Complains of pain in abdomen kd3 and right lower quadrant. Neuro: Level of Consciousness is awake, alert, obeys commands, Oriented to person, place, time, situation. Cardiovascular: Patient's skin is warm and dry. Respiratory: Airway is patent Trachea midline Respiratory effort is even, unlabored, Respiratory pattern is regular, symmetrical. GI: Abdomen is non-distended. 23:24 Reassessment: Patient and/or family updated on plan of care and expected duration. Pain kd3 level reassessed. Patient is alert, oriented x 3, equal unlabored respirations, skin warm/dry/pink. General: Appears uncomfortable, Behavior is anxious. 23:56 Reassessment: No changes from previously documented assessment. Patient and/or family kd3 updated on plan of care and expected duration. Pain level reassessed. Patient is alert, oriented x 3, equal unlabored respirations, skin warm/dry/pink. Vital Signs: 17:56 BP 143 / 93; Pulse 97; Resp 16; Temp 98.4; Pulse Ox 100% on R/A; Weight 127.01 kg; hb Height 5 ft. 7 in. (170.18 cm); Pain 8/10; 19:35 BP 105 / 76; Pulse 97; Resp 16; kd3 19:51 BP 113 / 80; Pulse 90; Resp 17; Pulse Ox 98% on R/A; kd3 20:54 BP 101 / 79; Pulse 85; Resp 19; Pulse Ox 98% on R/A; kd3 23:23 BP 113 / 88; Pulse 76; Resp 16; Pulse Ox 100% on R/A; kd3 23:55 BP 109 / 71; Pulse 74; Resp 18; Pulse Ox 100% on R/A; kd3 10/26 00:18 Temp 97.8(TE); kd3 00:36 BP 113 / 70; Pulse 83; Resp 18 S; Pulse Ox 98% on R/A; as6 10/25 17:56 Body Mass Index 43.85 (127.01 kg, 170.18 cm) hb ED Course: 10/25 17:53 Patient arrived in ED. mr 17:54 Ajay Willingham PA is PHCP. cp 17:54 Rey Almanzar MD is Attending Physician. cp 17:58 Triage completed. hb 17:58 Arm band placed on. hb 19:10 Bruna Finley, RN is Primary Nurse. kd3 19:18 Patient has correct armband on for positive identification. Placed in gown. Bed in low kd3 position. Call light in reach. 19:18 No provider procedures requiring assistance completed. kd3 20:16 Urine Microscopic Only Sent. kd3 20:16 Lipase Sent. kd3 20:16 CMP Sent. kd3 20:16 CBC with Diff Sent. kd3 23:23 CT Abd/Pelvis - PO and IV Contrast In Process Unspecified. EDMS 10/26 00:31 Bill Garcia MD is Referral Physician. cp 00:34 IV discontinued, intact, bleeding controlled, No redness/swelling at site. Pressure as6 dressing applied. Administered Medications: 10/25 20:15 Drug: NS 0.9% 1000 ml Route: IV; Rate: 500 ml/hr; Site: left antecubital; kd3 10/26 00:35 Follow up: Response: No adverse reaction; IV Status: Completed infusion; IV Intake: as6 1000ml 10/25 20:16 Drug: Zofran (Ondansetron) 4 mg Route: IVP; Site: left antecubital; kd3 10/26 00:35 Follow up: Response: No adverse reaction as6 10/25 20:16 Drug: morphine 4 mg Route: IVP; Infused Over: 4 mins; Site: left antecubital; kd3 10/26 00:35 Follow up: Response: No adverse reaction as6 10/25 21:08 Drug: Dilaudid (HYDROmorphone) 1 mg Route: IVP; Site: left antecubital; kd3 10/26 00:35 Follow up: Response: No adverse reaction as6 10/25 23:00 Not Given (Patient Refused): Ketorolac 30 mg IVP once as6 23:28 CANCELLED (Physician Discretion): Dilaudid (HYDROmorphone) 1 mg IVP once cp 23:36 Drug: Ketorolac 30 mg Route: IVP; Site: left antecubital; kd3 10/26 00:34 Follow up: Response: No adverse reaction as6 00:14 Drug: Dilaudid (HYDROmorphone) 1 mg Route: IVP; Site: left antecubital; kd3 00:34 Follow up: Response: No adverse reaction as6 Medication: 10/25 19:53 VIS not applicable for this client. kd3 Intake: 10/26 00:35 IV: 1000ml; Total: 1000ml. as6 Outcome: 00:32 Discharge ordered by MD. cp 00:34 Discharged to home ambulatory. as6 00:34 Condition: stable 00:34 Discharge instructions given to patient, Instructed on discharge instructions, follow as6 up and referral plans. medication usage, Demonstrated understanding of instructions, follow-up care, medications, Prescriptions given X 1. 00:37 Patient left the ED. as6 Signatures: Dispatcher [employer] EDNH FriedmanNegar mullen Corey, JESSICA PA Kalie More RN RN hb Slawson, Ashby, RN RN as6 Bruna Finley RN RN kd3
[2022-10-26 00:49] VITALS: TEMP 97.8
[2022-10-26 00:50] VITALS: BP 113/70; O2SAT 98
--- NOTE | 2022-10-26 11:37 | RAD REPORT ---
EXAM DESCRIPTION: CT - Abdomen Pelvis W Contrast - 10/26/2022 6:32 am CLINICAL HISTORY: 32 years Female, right lower abdomen pain TECHNIQUE: Helical CT axial images are obtained from the lung bases to the pubic symphysis with IV c ontrast. Oral contrast was administered. Multiplanar reconstruction. This exam was performed accordin g to our departmental dose-optimization program, which includes automated exposure control, adjustmen t of the mA and/or kV according to patient size and/or use of iterative reconstruction technique. COMPARISON: 10/20/2022 FINDINGS: LUNG BASES: Small bilateral pleural effusions, unchanged. No basilar consolidation or ate lectasis. LIVER: Hepatomegaly. Normal attenuation. No focal masses. HEPATOBILIARY: Normal-appearing gallbladder. No intra- or extrahepatic ductal dilatation. SPLEEN: Mild splenomegaly measuring up to 14.3 cm. A 1.0 cm well-circumscribed hypodense lesion comp atible with that of cyst versus hemangioma, both of which are benign entities and no further workup i s warranted. PANCREAS: Normal size and contour. No focal mass. ADRENAL GLANDS: Normal size. No adrenal masses. KIDNEYS: Bilateral kidneys are normal in size without obstructing calculi or hydronephrosis. No ne phrolithiasis. Couple of small simple right renal cysts, no further workup is warranted. No focal ila id mass. BOWEL AND MESENTERY: No small or large bowel dilatation. No colonic diverticulosis. Status post ap pendectomy. No abnormal mesenteric lymphadenopathy. No free fluid or pneumoperitoneum. RETROPERITONEUM: Normal caliber abdominal aorta without aneurysm. No abnormal retroperitoneal lympha denopathy. PELVIS: Urinary bladder is suboptimally distended. Uterus and adnexal regions are unremarkable. ABDOMINAL WALL: Interval removal of surgical clips seen at the level of the umbilicus likely related to recent laparoscopic surgery. No focal hematoma or evidence for infection. BONES: No suspicious osseous lytic or blastic lesions seen. IMPRESSION: 1. Interval removal of surgical clips seen at the level of the umbilicus likely relate d to recent laparoscopic surgery. No focal hematoma or evidence for infection. 2. No acute intra-abdominal or pelvic disease. 3. Hepatosplenomegaly. 4. Status post appendectomy. 5. Small bilateral pleural effusions, unchanged. Electronically signed by: Jayson Bowers MD 10/25/2022 11:43 PM [employer] Due to temporary technical issues with the PACS/Fluency reporting system, reports are being signed by the in house radiologists without review as a courtesy to insure prompt reporting. The interpreting radiologist is fully responsible for the content of the report.
== END 2022-10-26 00:37 | disposition home or self-care (01) ==
LOC: ER 17:50
DX: R10.31 Right lower quadrant pain (principal); R11.2 Nausea with vomiting, unspecified; Z98.890 Other specified postprocedural states; Z88.0 Allergy status to penicillin; Z88.8 Allergy status to other drugs, medicaments and biological substances
CPT/HCPCS: 96361; 85025; 36415; 81025; 83690; 80053; 74177; 96375; 96374; 99284; Q9967; 81003; 81015

== ENCOUNTER 2023-01-08 21:55 | Emergency (ER) | payer OTHER ==
--- OUTSIDE RECORDS SUMMARY | 2023-01-08 22:05 | XMS REPORT | Continuity of Care Document ---
:1990 Author Organization [facility] t Address [address] [facility] [address] [place] [address] Care Team Providers Name Role Phone Tri BARNES, Samantha Stringer Primary Care Physician DORIS PAUL Attending Clinician Unavailable Doris Stovall MD Attending Clinician Jose BARNES, Tiff Dowd Attending Clinician [facility] Neurology Resident Attending Clinician Ritu Colvin RN, Laura Attending Clinician Unavailable Doctor Unassigned, [place] Attending Clinician Unavailable Donny Noel MD Attending Clinician Rich Newton MD Attending Clinician Rossy Ruano MD Attending Clinician [phone] ROSSY RUANO Attending Clinician Unavailable Oscar PENALOZA Attending Clinician Unavailable Oscar Narvaez [...] 2021-11 M ethodi in adult in adult 12-06 st 00:00: Hospita 00 l Shortness Shortness Disease Active 2021-[address] [facility] of breath of breath 1-14 Luke s 00:00: [place] [id number] Center Kidney Kidney Disease Active 2020-11 Univers stone stone 2-16 ity of 00:00: [place] 00 [facility] Morbid Morbid Disease Active 2020-11 Univers obesity obesity 2-16 ity of 00:00: [place] 00 [facility] Obstructiv Obstructiv Disease Active 2020-11 U mohan e sleep e sleep 2-16 ity of apnea apnea 00:00: [place] 00 [facility] Cerebrovas Cerebrovas Disease Active 2019-11 U mohan cular cular 1-05 ity of accident accident 00:00: [place] (CVA) (CVA) 00 [facility] Transient Transient Disease Active 2019-11 Uni vers ischemic ischemic 1-05 ity of attack attack 00:00: [place] [facility] Hyperlipid Hyperlipid Disease Active 2020-0 U nivers emia emia 2-21 ity of 00:00: [place] 00 [facility] Branch Benign Benign Disease Active 2017-11 Univers intracrani intracrani 0-23 it y of al al 00:00: [place] hypertensi hypertensi 00 Me dical on on Branch Hypothyroi Hypothyroi Disease Active 2016-11 U mohan dism dism 2-26 ity of 00:00: [place] 00 Medical Branch Bipolar 1 Bipolar 1 Disease Active 2016-11 Uni vers disorder, disorder, 1-20 [place] of depressed [place] Posttrauma Posttrauma Disease Active U mohan tic stress tic stress 3-17 it y of disorder disorder 00:00: [place] 00 Medical Branch Allergies, Adverse Reactions, Alerts Allergy Allergy Status Severity Reaction(s) Onset Inactive Treating Comm ents Source Name Type Date Date Clinician Lactose Propensi Active GI 2021-11 Methodi ty to Intolerance 2-03 st adverse 00:00: Hospita reaction 00 l s to drug Predniso Propensi Active Palpitations 2021-[address] [facility] [facility] ty to 11-29 [facility] adverse 00:00: Medical reaction 00 [place] [facility] PREDNISO Allergy Active Low Palpitations 2021-[address] 11-29 [facility] 00:[facility]: Medical 00 Center PENICILL DRUG Active Hives 2021-11 Univers IN INGREDI 1- ity of 00:00: [place] 00 Medical Branch Penicill Propensi Active Hives 2021-11 Univer s in ty to 1-21 ity of adverse 00:00: [place] reaction 00 Medical s Branch Penicill Propensi Active Hives 2021-[address] [facility] in ty to 1-14 [facility] adverse 00:00: Medical reaction 00 Center s Prometha Propensi Active Other (See 2021-11 "restless [facility] zine-Dm ty to Comments) 1-14 legs" [facility] adverse 00:00: Medical reaction 00 Center s PENICILL Allergy Active High Hives 2021-[address] [facility] IN 1-14 [facility] 00:00: Medical 00 Center PROMETHA Allergy Active Other 2021-[address] [facility] ZINE-DM 1-14 [facility] 00:00: Medical 00 [place] NSAIDs - Propensi Active 2021-11 CLASS ty to 1-08 adverse 00:00: reaction 00 to drug Penicill Propensi Active 2021-11 ins - ty to 0-31 CLASS adverse 00:00: reaction 00 to drug Penicill DA Active [facility] ins 03-26 [facility] 00:00: Health 00 are [place] prometha DA Active [facility] zine 03-26 [place] 00:00: Health 00 are [place] PREDNISO DRUG Active Palpitations Un eddie NE INGREDI 4-04 ity of 00:00: [place] 00 Medical Branch PROMETHA DRUG Active Other-Cmnt Univ ers ZINE INGREDI 4-04 ity of 00:00: [place] [address] Medical Branch Predniso Drug Active Palpitations Un eddie ne Allergy 4-04 ity of 00:00: [place] [address] Medical Branch Prometha Drug Active Other - See Restless U nivers zine Allergy comments 4-04 legs ity of 00:00: [address] Social History Social Habit Start Date Stop Date Quantity Comments Source Exposure to 2022-09-19 2022-09-[address] [facility] SARS-CoV-2 00:00:00 01:26:00 [facility] (event) Alcohol intake 2022-09-29 2022-09-29 Ex-drinker [facility] 00:00:00 00:00:00 (finding) [facility] Tobacco use and 2022-09-17 2022-09-[address] [facility]ie kes exposure 00:00:00 00:00:00 [facility] History of 2020-09-[address] [facility] tobacco use 00:00:00 [facility] r Sex Assigned At [address] [facility] [facility] 00:00:00 00:00:00 [facility] Smoking Status Start Date Stop Date Source Tobacco smoking [facility] consumption unknown Former smoker 2022-09-17 00:00:00 2022-09-[address] [facility] [address] [facility] Medical 00:00:00 Center Medications Ordered Filled Start Stop Current Ordering Indication Dosage Frequency Signature Comments Components Source Medication Medication Date Date Medication? Clinician (SIG) Name Name PANTOPRAZOL Yes [id number] TAKE ONE Univers E 40 mg EC 2-16 (1) TABLET ity of tablet 00:00: BY MOUTH IN THE Medical MORNING. Branch Dose 2022-1 No Unknown 2-13 00:00: 00 TAKE 1 2021-1 No TABLET BY 2-13 MOUTH EVERY 00:00: 24 HOURS 00 FOR 7 DAYS Dose 2021-1 No Unknown 2-13 00:00: 00 GABAPENTIN 2021- No 300 MG CAPS 2-13 00:00: 00 TAKE 1 2021- No TABLET BY 2-13 MOUTH TWICE 00:00: DAILY 00 TAKE ONE 2021- No (1) 2-13 TABLET(S) 00:00: BY MOUTH 00 TWICE A DAY. TAKE 1 2021- No TABLET BY 2-13 MOUTH NOW 00:00: [...] X 5 2-13 DAYS 00:00: 00 AZITHROMYCI 2021-11 No N 250MG 2-13 TABLETS 00:00: 6-HANNAH 00 TAKE 2021-11 No TABLET BY 2-13 MOUTH TWICE 00:00: DAILY 00 Dose 2021-11 No Unknown 2-13 00:00: 00 FUROSEMIDE 2021-11 No 20 MG TABS 2-13 00:00: 00 [...] HOURS FOR 00 5 DAYS NEEDED TAKE 1 2021-11 No CAPSULE 3 2-13 TIMES 00:00: DAILY. 00 TAKE 1 2021-11 No TABLET BY 2-13 MOUTH EVERY 00:00: MORNING AND 00 2 TABLETS BY MOUTH EVERY NIGHT AT BEDTIME TAKE 1 2021-11 No TABLET BY 2-13 MOUTH TWICE 00:00: DAILY 00 TAKE ONE 2021-11 No (1) 2-13 TABLET(S) 00:00: BY MOUTH 00 THREE TIMES A DAY NEEDED FOR ANXIETY. TAKE 1 2021-11 No TABLET BY 2-13 [...] 2021-11 Yes 20mg QD Take 1 Meth iwllie n (LIPITOR) 2-05 tablet (20 st 20 [...] l tablet daily. gabapentin 2021-11 Yes 300mg Q.[id number] Take 1 [facility] (NEURONTIN) 2-[id number] 300 mg 17:25: 3D (300 [...] l tablet daily. gabapentin 2021-11 Yes 300mg Q.[id number] Take 1 [facility] (NEURONTIN) 2-[id number] 300 mg 17:25: 3D (300 [...] l tablet daily. gabapentin 2021-11 Yes 300mg Q.[id number] Take 1 [facility] (NEURONTIN) 2-[id number] 300 mg 17:25: 3D (300 [...] l tablet daily. gabapentin 2021-11 Yes 300mg Q.[id number] Take 1 [facility] (NEURONTIN) 2-[id number] 300 mg 17:25: 3D (300 [...] l tablet daily. gabapentin 2021-11 Yes 300mg Q.[id number] Take 1 [facility] (NEURONTIN) 2-[id number] 300 mg 17:25: 3D (300 [...] l tablet daily. gabapentin 2021-11 Yes 300mg Q.[id number] Take 1 [facility] (NEURONTIN) 2-[id number] 300 mg 17:25: 3D (300 [...] l tablet daily. gabapentin 2021-11 Yes 300mg Q.[id number] Take 1 [facility] (NEURONTIN) 2-[id number] 300 mg 17:25: 3D (300 [...] l tablet daily. gabapentin 2021-11 Yes 300mg Q.[id number] Take 1 [facility] (NEURONTIN) 2-[id number] 300 mg 17:25: 3D (300 mg Hospita capsule 07 total) by l mouth 3 (three) times a day. acetaZOLAMI 2022-1 2022- No 500mg QD Take 1 Me thodi [...] IV ity of succ 03:15: 02:40 [place], [place] (SOLU-MEDRO 00 :00 ONCE, 1 Medic al L) dose, On Branch injection Mon 125 mg 09/24/22 at 2115, SCAR predniSONE 2021-11- No [id number] 10mg Take 1 U nivers 10 mg 11-24 tablet by ity of tablet 00:00: 05:59 mouth in [place] 00 :00 the Medical morning Branch and 1 tablet in the evening. Do all this for 4 days. FLUoxetine 2021-11 Yes 40mg QD Take [address] (PROzac) 40 1-17 by mouth Luke s MG capsule 17:05: daily. Medic al 04 [place] levothyroxi 2021-11 Yes 50ug Take 50 [facility] [...] MG 17:05: mouth Medical tablet 04 nightly. [place] QUEtiapine 2021-11 Yes 200mg QD Take [address] (SEROquel) 1-17 mg by [facility] 200 MG 17:05: mouth Medical tablet 04 nightly. [place] FLUoxetine 2021-11 Yes 40mg QD Take [address] (PROzac) 40 1-17 by mouth Luke s MG capsule 17:05: daily. Medic al 04 [place] levothyroxi 2021-11 Yes 50ug Take 50 CHI [...] MG 17:05: mouth Medical tablet 04 nightly. [place] FLUoxetine 2021-11 Yes 40mg QD Take 40 [...] MG 17:05: mouth Medical tablet 04 nightly. [place] FLUoxetine 2021-11 Yes 40mg QD Take [address] (PROzac) 40 1-17 by mouth Luke s MG capsule 17:05: daily. Medic al 04 [place] levothyroxi 2021-11 Yes 50ug Take 50 CHI [...] MG 17:05: mouth Medical tablet 04 nightly. [place] FLUoxetine 2021-11 Yes 40mg QD Take [address] (PROzac) 40 1-17 by mouth Luke s MG capsule 17:05: daily. Medic al 04 [place] levothyroxi 2021-11 Yes 50ug Take 50 CHI [...] MG 17:05: mouth Medical tablet 04 nightly. [place] FLUoxetine 2021-11 Yes 40mg QD Take 40 [...] MG 17:05: mouth Medical tablet 04 nightly. [place] FLUoxetine 2021-11 Yes 40mg QD Take [address] (PROzac) 40 1-17 by mouth Luke s MG capsule 17:05: daily. Medic al 04 [place] levothyroxi 2021-11 Yes 50ug Take 50 CHI [...] MG 17:05: mouth Medical tablet 04 nightly. [place] FLUoxetine 2021-11 Yes 40mg QD Take [address] (PROzac) 40 1-17 by mouth Luke s MG capsule 17:05: daily. Medic al 04 [place] levothyroxi 2021-11 Yes 50ug Take 50 CHI [...] MG 17:05: mouth Medical tablet 04 nightly. [place] FLUoxetine 2021-11 Yes 40mg QD Take [address] (PROzac) 40 1-17 by mouth Luke s MG capsule 17:05: daily. Medic al 04 [place] levothyroxi 2021-11 Yes 50ug Take 50 CHI [...] MG 17:05: mouth Medical tablet 04 nightly. [place] FLUoxetine 2021-11 Yes 40mg QD Take [address] (PROzac) 40 1-17 by mouth Luke s MG capsule 17:05: daily. Medic al 04 [place] levothyroxi 2021-11 Yes 50ug Take 50 CHI [...] MG 17:05: mouth Medical tablet 04 nightly. [place] FLUoxetine 2021-11 Yes 40mg QD Take [address] (PROzac) 40 1-17 by mouth Luke s MG capsule 17:05: daily. Medic al 04 [place] levothyroxi 2021-11 Yes 50ug Take [address] ne 1-17 mcg by [facility] (SYNTHROID, 17:05: mouth Medic al LEVOTHROID) 04 Every Center 50 MCG morning on tablet an empty stomach. pantoprazol 2021-11 Yes 40mg QD Take [address] [facility] e 1-17 by mouth [facility] (PROTONIX) 17:05: daily. Medic al 40 MG 04 [place] tablet lamoTRIgine 2021-11- No 50mg QD Take [address] (LaMICtal) 11-20-16 by mouth Luke [facility] 25 MG 17:05: 00:00 daily. Medical tablet 04 :00 [place] gabapentin 2021-11- No 300mg Q.[id number] Take [address] (NEURONTIN) 11-20-16 [id number] mg by [facility] 300 MG 17:05: 00:00 3D mouth 3 Medical capsule 04 :00 (three) Center times daily. apixaban 2021-11 No 5mg QD Take [address] (Eliquis) 5 -20 09-16 by mouth [place] [facility] mg Tab 17:05: 00:00 daily. Medical tablet 04 :00 [place] atorvastati 2021-11- No 10mg QD Take [address] n (LIPITOR) 11-20-16 by mouth Sudhakar es 10 MG 17:05: 00:00 daily. Medical tablet 04 :00 [place] atorvastati 2021-11- No 10mg QD Take [address] [facility] n (LIPITOR) 11-20-16 by mouth Sudhakar es 10 MG 17:05: 00:00 daily. Medical tablet 04 :00 [place] lamoTRIgine 2021-11 No 50mg QD Take [address] (LaMICtal) 11-20-16 by mouth Luke s 25 MG 17:05: 00:00 daily. Medical tablet 04 :00 [place] gabapentin 2021-11- No 300mg Q.[id number] Take [address] (NEURONTIN) 11-20-16 [id number] mg by [facility] 300 MG 17:05: 00:00 3D mouth 3 Medical capsule 04 :00 (three) Center times daily. apixaban 2021-11- No 5mg QD Take [address] [facility] (Eliquis) 5 11-20-16 by mouth Sudhakar es mg Tab 17:05: 00:00 daily. Medical tablet 04 :00 [place] atorvastati 2021-11- No 10mg QD Take [address] [facility] n (LIPITOR) 11-20-16 by mouth Sudhakar es 10 MG 17:05: 00:00 daily. Medical tablet 04 :00 [place] lamoTRIgine 2021-11- No 50mg QD Take [address] [facility] (LaMICtal) 11-20-16 by mouth Luke [facility] 25 MG 17:05: 00:00 daily. Medical tablet 04 :00 [place] gabapentin 2021-11- No 300mg Q.[id number] Take [address] [facility] [address] (NEURONTIN) 11-20-16 [id number] mg by [facility] 300 MG 17:05: 00:00 3D mouth 3 Medical capsule 04 :00 (three) Center times daily. apixaban 2021-11- No 5mg QD Take [address] [facility] (Eliquis) 5 -20 09-16 by mouth Sudhakar es mg Tab 17:05: 00:00 daily. Medical tablet 04 :00 [place] atorvastati 2021-11- No 10mg QD Take [address] [facility] n (LIPITOR) 11-20-16 by mouth Sudhakar es 10 MG 17:05: 00:00 daily. Medical tablet 04 :00 [place] lamoTRIgine 2021-11- No 50mg QD Take [address] [facility] [address] (LaMICtal) 11-20-16 by mouth [facility] 25 MG 17:05: 00:00 daily. Medical tablet 04 :00 [place] gabapentin 2021-11 No 300mg Q.[id number] Take [address] (NEURONTIN) 11-20-16 [id number] mg by [facility] 300 MG 17:05: 00:00 3D mouth 3 Medical capsule 04 :00 (three) Center times daily. apixaban 2021-11- No 5mg QD Take [address] [facility] (Eliquis) 5 -17 -16 by mouth [facility] es mg Tab 17:05: 00:00 daily. Medical tablet 04 :00 [place] atorvastati 2021-11- No 10mg QD Take [address] [facility] n (LIPITOR) 11-20-16 by mouth Sudhakar es 10 MG 17:05: 00:00 daily. Medical tablet 04 :00 [place] lamoTRIgine 2021-11- No 50mg QD Take [address] [facility] (LaMICtal) 11-20-16 by mouth [facility] 25 MG 17:05: 00:00 daily. Medical tablet 04 :00 [place] gabapentin 2021-11- No 300mg Q.[id number] Take [address] [address] (NEURONTIN) 11-20-16 [id number] [facility] by [facility] 300 MG 17:05: 00:00 3D mouth 3 Medical capsule 04 :00 (three) Center times daily. apixaban 2021-11- No 5mg QD Take [address] [facility] (Eliquis) 5 11-20-16 by mouth [facility] es mg Tab 17:05: 00:00 daily. Medical tablet 04 :00 [place] atorvastati 2021-11- No 10mg QD Take [address] [facility] n (LIPITOR) 11-20-16 by mouth Sud[facility]akar es 10 MG 17:05: 00:00 daily. Medical tablet 04 :00 [place] lamoTRIgine 2021-11 No 50mg QD Take [address] [facility] (LaMICtal) 11-20-16 by mouth [facility] 25 MG 17:05: 00:00 daily. Medical tablet 04 :00 [place] gabapentin 2021-11- No 300mg Q.[id number] Take [address] (NEURONTIN) 11-20-16 [id number] mg by [facility] 300 MG 17:05: 00:00 3D mouth 3 Medical capsule 04 :00 (three) Center times daily. apixaban 2021-11- No 5mg QD Take [address] [facility] (Eliquis) 5 11-20-16 by mouth Sud[facility]akar es mg Tab 17:05: 00:00 daily. Medical tablet 04 :00 [place] atorvastati 2021-11- No 10mg QD Take [address] [facility] n (LIPITOR) 11-20-16 by mouth Sudhakar es 10 MG 17:05: 00:00 daily. Medical tablet 04 :00 [place] lamoTRIgine 2021-11- No 50mg QD Take [address] [facility] (LaMICtal) 11-20-16 by mouth [facility] 25 MG 17:05: 00:00 daily. Medical tablet 04 :00 [place] gabapentin 2021-11- No 300mg Q.[id number] Take [address] [facility] [address] (NEURONTIN) 11-20-16 [id number] [facility] 300 MG 17:05: 00:00 3D mouth 3 Medical capsule 04 :00 (three) Center times daily. apixaban 2021-11- No 5mg QD Take [address] [facility] (Eliquis) 5 -20 09-16 by mouth [facility] es mg Tab 17:05: 00:00 daily. Medical tablet 04 :00 [place] atorvastati 2021-11- No 10mg QD Take [address] [facility] n (LIPITOR) 11-20-16 by mouth [facility]ak[facility] es 10 MG 17:05: 00:00 daily. Medical tablet 04 :00 [place] lamoTRIgine 2021-11- No 50mg QD Take [address] [facility] (LaMICtal) 11-20-16 by mouth [facility] 25 MG 17:05: 00:00 daily. Medical tablet 04 :00 [place] gabapentin 2021-11- No 300mg Q.[id number] Take [address] [facility] (NEURONTIN) 11-20-16 [id number] [facility] 300 MG 17:05: 00:00 3D mouth 3 Medical capsule 04 :00 (three) Center times daily. apixaban 2021-11- No 5mg QD Take [address] [facility] (Eliquis) 5 11-20-16 by mouth [facility] es mg Tab 17:05: 00:00 daily. Medical tablet 04 :00 [place] atorvastati 2021-11- No 10mg QD Take [address] [facility] n (LIPITOR) 11-20-16 by mouth [facility]ak[facility] es 10 MG 17:05: 00:00 daily. Medical tablet 04 :00 [place] lamoTRIgine 2021-11- No 50mg QD Take [address] [facility] (LaMICtal) 11-20-16 by mouth [facility] 25 MG 17:05: 00:00 daily. Medical tablet 04 :00 [place] gabapentin 2021-11- No 300mg Q.[id number] Take [address] (NEURONTIN) 11-20-16 [id number] [facility] 300 MG 17:05: 00:00 3D mouth 3 Medical capsule 04 :00 (three) Center times daily. apixaban 2021-11- No 5mg QD Take [address] [facility] (Eliquis) 5 -20 09-16 by mouth [facility] es mg Tab 17:05: 00:00 daily. Medical tablet 04 :00 [place] atorvastati 2021-11- No 10mg QD Take [address] [facility] n (LIPITOR) -17 -16 by mouth Sud[facility]ak[facility] es 10 MG 17:05: 00:00 daily. Medical tablet 04 :00 [place] lamoTRIgine 2021-11- No 50mg QD Take [address] [facility] (LaMICtal) 17 -16 by mouth [facility] 25 MG 17:05: 00:00 daily. Medical tablet 04 :00 [place] gabapentin 2021-11- No 300mg Q.[id number] Take [address] (NEURONTIN) -17 -16 [id number] mg by [facility] 300 MG 17:05: 00:00 3D mouth 3 Medical capsule 04 :00 (three) Center times daily. apixaban 2021-11 No 5mg QD Take [address] [facility] (Eliquis) 5 11-20-16 by mouth [facility] es mg Tab 17:05: 00:00 daily. Medical tablet 04 :00 [place] atorvastati 2021-11- No 10mg QD Take [address] [facility] n (LIPITOR) 11-20-16 by mouth [facility]hak[facility] es 10 MG 17:05: 00:00 daily. Medical tablet 04 :00 [place] lamoTRIgine 2021-11 No 50mg QD Take [address] [facility] (LaMICtal) 17 -16 by mouth [facility] s 25 MG 17:05: 00:00 daily. Medical tablet 04 :00 [place] gabapentin 2021-11- No 300mg Q.[id number] Take [address] (NEURONTIN) -17 -16 [id number] mg by [facility] 300 MG 17:05: 00:00 3D mouth 3 Medical capsule 04 :00 (three) Center times daily. apixaban 2021-11- No 5mg QD Take [address] [facility] (Eliquis) 5 -17 -16 by mouth [facility] es mg Tab 17:05: 00:00 daily. Medical tablet 04 :00 [place] atorvastati 2021-11- No 20mg QD Take [address] [facility] n (LIPITOR) -16 -16 tablet (20 L ukes 20 MG 00:00: 23:59 mg total) Medica l tablet 00 :00 by mouth Center nightly. gabapentin 2021-11- No 300mg QD Take [address] [facility] (NEURONTIN) 1-16 11-16 capsule Luke s 300 MG 00:00: 23:59 (300 mg Medical capsule 00 :00 total) by Center mouth nightly. atorvastati 2021-11- No 20mg QD Take [address] [facility] n (LIPITOR) 1-16 11-16 tablet (20 L ukes 20 MG 00:00: 23:59 mg total) Medica l tablet 00 :00 by mouth Center nightly. gabapentin 2021-11 No 300mg QD Take [address] [facility] [address] (NEURONTIN) 1-16 11-16 capsule Luke s 300 MG 00:00: 23:59 (300 mg Medical capsule 00 :00 total) by Center mouth nightly. atorvastati 2021-11- No 20mg QD Take [address] [facility] n (LIPITOR) 1-16 -16 tablet (20 L ukes 20 MG 00:00: 23:59 mg total) Medica l tablet 00 :00 by mouth Center nightly. gabapentin 2021-11 No 300mg QD Take [address] [facility] (NEURONTIN) 1-16 11-16 capsule Luke s 300 MG 00:00: 23:59 (300 mg Medical capsule 00 :00 total) by Center mouth nightly. atorvastati 2021-11- No 20mg QD Take [address] [facility] n (LIPITOR) 1-16 -16 tablet (20 L ukes 20 MG 00:00: 23:59 mg total) Medica l tablet 00 :00 by mouth Center nightly. gabapentin 2021-11 No 300mg QD Take [address] [facility] (NEURONTIN) 1-16 11-16 capsule Luke s 300 MG 00:00: 23:59 (300 mg Medical capsule 00 :00 total) by Center mouth nightly. atorvastati 2021-11- No 20mg QD Take [address] [facility] n (LIPITOR) 1-16 11-16 tablet (20 L ukes 20 MG 00:00: 23:59 mg total) Medica l tablet 00 :00 by mouth Center nightly. gabapentin 2021-11- No 300mg QD Take [address] [facility] [address] (NEURONTIN) 1-16 11-16 capsule Luke s 300 MG 00:00: 23:59 (300 mg Medical capsule 00 :00 total) by Center mouth nightly. atorvastati 2021-11- No 20mg QD Take [address] [facility] n (LIPITOR) 1-16 11-16 tablet (20 L ukes 20 MG 00:00: 23:59 mg total) Medica l tablet 00 :00 by mouth Center nightly. gabapentin 2021-11 No 300mg QD Take [address] [facility] [address] (NEURONTIN) -16 -16 capsule Luke s 300 MG 00:00: 23:59 (300 mg Medical capsule 00 :00 total) by Center mouth nightly. atorvastati 2021-11- No 20mg QD Take [address] [facility] n (LIPITOR) -16 -16 tablet (20 L ukes 20 MG 00:00: 23:59 mg total) Medica l tablet 00 :00 by mouth Center nightly. gabapentin 2021-11 No 300mg QD Take [address] [facility] (NEURONTIN) -16 -16 capsule Luke s 300 MG 00:00: 23:59 (300 mg Medical capsule 00 :00 total) by Center mouth nightly. atorvastati 2021-11 No 20mg QD Take [address] [facility] n (LIPITOR) -16 -16 tablet (20 L ukes 20 MG 00:00: 23:59 mg total) Medica l tablet 00 :00 by mouth Center nightly. gabapentin 2021-11 No 300mg QD Take [address] [facility] [address] (NEURONTIN) -16 -16 capsule Luke s 300 MG 00:00: 23:59 (300 mg Medical capsule 00 :00 total) by Center mouth nightly. atorvastati 2021-11- No 20mg QD Take [address] [facility] n (LIPITOR) 1-16 -16 tablet (20 L ukes 20 MG 00:00: 23:59 mg total) Medica l tablet 00 :00 by mouth Center nightly. gabapentin 2021-11- No 300mg QD Take [address] [facility] [address] (NEURONTIN) 1-16 11-16 capsule Luke s 300 MG 00:00: 23:59 (300 mg Medical capsule 00 :00 total) by Center mouth nightly. atorvastati 2021-11- No 20mg QD Take [address] [facility] n (LIPITOR) 1-16 11-16 tablet (20 L ukes 20 MG 00:00: 23:59 mg total) Medica l tablet 00 :00 by mouth Center nightly. gabapentin 2021-11- No 300mg QD Take [address] [facility] [address] (NEURONTIN) -16 11-16 capsule Luke s 300 MG 00:00: 23:59 (300 mg Medical capsule 00 :00 total) by Center mouth nightly. atorvastati 2021-11- No 20mg QD Take [address] [facility] n (LIPITOR) -16 11-16 tablet (20 L ukes 20 MG 00:00: 23:59 mg total) Medica l tablet 00 :00 by mouth Center nightly. gabapentin 2021-11 No 300mg QD Take [address] [facility] [address] (NEURONTIN) [...] St (Eliquis) 5 1-16 12-16 tablet (5 [place] kes mg Tab 00:00: 23:59 mg total) [...] QD Take [address] [facility] (LASIX) 20 16 11-21 tablet (20 Nathalie kes MG tablet 00:00: 23:59 mg total) Me dical 00 :00 by mouth Center daily for 5 days. furosemide 2021-11 No 20mg QD Take [address] [facility] [...] by mouth. ity of tablet 12:00: 00:00 [place] 31 :00 Medical Branch levothyroxi 2021- No .05ug Take 0.05 Univers ne 50 mcg 8-17 08-17 mcg by ity of tablet 12:00: 00:00 mouth [place] 31 :00 every Medical morning. Branch QUEtiapine Yes [id number] TAKE ONE Univers 50 mg 8-17 (1) ity of tablet 00:00: TABLET(S) [place] 00 BY MOUTH Medical IN THE Branch MORNING AND 2 TABLETS AT BEDTIME. divalproex Yes [id number] 250mg Take 1 Univers 250 mg EC 8-17 tablet by ity o f tablet 00:00: mouth in [place] 00 the Medical morning Branch and 1 tablet in the evening. levothyroxi 2021-0 Yes [id number] 50ug Take 1 Univers ne 50 mcg 8-17 tablet by ity o f tablet 00:00: mouth [place] 00 every Medical morning. Branch hydrOXYzine 2021-0 Yes [id number] 50mg Take 1 Univers 50 mg 8-17 tablet by ity of tablet 00:00: mouth 3 (three) Medical times [place] daily as needed for Anxiety. atorvastati 2021-0 Yes [id number] 20mg Take 1 Univers n 20 mg 8-17 tablet by ity of tablet 00:00: mouth at [place] 00 bedtime. Medical Branch pantoprazol 2021-0 Yes [id number] 40mg Take 1 Univers e 40 mg EC 8-17 tablet by ity of tablet 00:00: mouth in [place] 00 the Medical morning. Branch FLUoxetine 2021-0 Yes [id number] TAKE 1 U nivers 40 mg 8-17 CAPSULE BY ity of capsule 00:00: MOUTH 00 DAILY IN Medical THE Branch MORNING WITH FOOD gabapentin 2021-0 Yes [id number] 300mg Take 1 Univers 300 mg 8-17 [id number] capsule by ity o f capsule 00:00: mouth at [place] 00 bedtime. Medical Branch QUEtiapine 2021-0 Yes [id number] TAKE ONE Univers 50 mg 8-17 (1) ity of tablet 00:00: TABLET(S) 00 BY MOUTH Medical IN THE Branch MORNING AND 2 TABLETS AT BEDTIME. divalproex 2021-0 Yes [id number] 250mg Take 1 Univers 250 mg EC 8-17 tablet by ity o f tablet 00:00: mouth in [place] 00 the Medical morning Branch and 1 tablet in the evening. levothyroxi 2021-0 Yes [id number] 50ug Take 1 Univers ne 50 mcg 8-17 tablet by ity o f tablet 00:00: mouth 00 every Medical morning. Branch hydrOXYzine 2021-0 Yes [id number] 50mg Take 1 Univers 50 mg 8-17 tablet by ity of tablet 00:00: mouth 3 00 (three) Medical times [place] daily as needed for Anxiety. atorvastati 2021-0 Yes [id number] 20mg Take 1 Univers n 20 mg 8-17 tablet by ity of tablet 00:00: mouth at [place] 00 bedtime. Medical Branch pantoprazol 0 Yes [id number] 40mg Take 1 Univers e 40 mg EC 8-17 tablet by [facility] of tablet 00:00: mouth in [place] 00 the Medical morning. Branch FLUoxetine 2021-0 Yes [id number] TAKE 1 [facility] 40 mg 8-17 CAPSULE BY ity of capsule 00:00: MOUTH [place] 00 DAILY IN Medical THE [place] MORNING WITH FOOD gabapentin 2021-0 Yes [id number] 300mg Take 1 [facility] 300 mg 8-17 [id number] capsule by ity o f capsule 00:00: mouth at [place] 00 bedtime. Medical Branch QUEtiapine 0 Yes [id number] TAKE ONE [facility] 50 mg 8-17 (1) ity of tablet 00:00: TABLET(S) [place] 00 BY MOUTH Medical IN THE Branch MORNING AND 2 TABLETS AT BEDTIME. divalproex Yes [id number] 250mg Take 1 Univers 250 mg EC 8-17 tablet by ity o f tablet 00:00: mouth in [place] 00 the Medical morning Branch and 1 tablet in the evening. levothyroxi Yes [id number] 50ug Take 1 Univers ne 50 mcg 8-17 tablet by ity o f tablet 00:00: mouth [place] 00 every Medical morning. Branch hydrOXYzine Yes [id number] 50mg Take 1 [facility] 50 mg 8-17 tablet by ity of tablet 00:00: mouth 3 [place] 00 (three) Medical times [place] daily as needed for Anxiety. atorvastati Yes [id number] 20mg Take 1 Univers n 20 mg 8-17 tablet by ity of tablet 00:00: mouth at [place] 00 bedtime. Medical Branch pantoprazol 0 Yes [id number] 40mg Take 1 Univers e 40 mg EC 8-17 tablet by ity of tablet 00:00: mouth in [place] 00 the Medical morning. Branch FLUoxetine 2021-0 Yes [id number] TAKE 1 U nivers 40 mg 8-17 CAPSULE BY ity of capsule 00:00: MOUTH [place] 00 DAILY IN Medical THE [place] MORNING WITH FOOD gabapentin 2021-0 Yes [id number] 300mg Take 1 Univers 300 mg 8-17 [id number] capsule by ity o f capsule 00:00: mouth at [place] 00 bedtime. Medical Branch QUEtiapine 2021-0 Yes [id number] TAKE ONE Univers 50 mg 8-17 (1) ity of tablet 00:00: TABLET(S) 00 BY MOUTH Medical IN THE Branch MORNING AND 2 TABLETS AT BEDTIME. divalproex 2021-0 Yes [id number] 250mg Take 1 [facility] 250 mg EC 8-17 tablet by ity o f tablet 00:00: mouth in [place] 00 the Medical morning Branch and 1 tablet in the evening. levothyroxi 2021-0 Yes [id number] 50ug Take 1 [facility] ne 50 mcg 8-17 tablet by ity o f tablet 00:00: mouth [place] 00 every Medical morning. Branch hydrOXYzine 2021-0 Yes [id number] 50mg Take 1 [facility] 50 mg 8-17 tablet by ity of tablet 00:00: mouth 3 00 (three) Medical times [place] daily as needed for Anxiety. atorvastati 2021-0 Yes [id number] 20mg Take 1 Univers n 20 mg 8-17 tablet by ity of tablet 00:00: mouth at [place] [address] bedtime. Medical Branch pantoprazol 2021-0 Yes [id number] 40mg Take 1 Univers e 40 mg EC 8-17 tablet by ity of tablet 00:00: mouth in [place] 00 the Medical morning. Branch FLUoxetine 2021-0 Yes [id number] TAKE 1 U nivers 40 mg 8-17 CAPSULE BY ity of capsule 00:00: MOUTH [place] 00 DAILY IN Medical THE Branch MORNING WITH FOOD gabapentin 2021-0 Yes [id number] 300mg Take 1 [facility] 300 mg 8-17 [id number] capsule by ity o f capsule 00:00: mouth at [place] [address] bedtime. Medical Branch QUEtiapine 2021-0 Yes [id number] TAKE ONE Univers 50 mg 8-17 (1) ity of tablet 00:00: TABLET(S) [place] 00 BY MOUTH Medical IN THE Branch MORNING AND 2 TABLETS AT BEDTIME. divalproex 2021-0 Yes [id number] 250mg Take 1 [facility] 250 mg EC 8-17 tablet by ity o f tablet 00:00: mouth in [place] 00 the Medical morning Branch and 1 tablet in the evening. levothyroxi 2021-0 Yes [id number] 50ug Take 1 [facility] ne 50 mcg 8-17 tablet by ity o f tablet 00:00: mouth [place] 00 every Medical morning. Branch hydrOXYzine 2021-0 Yes [id number] 50mg Take 1 [facility] 50 mg 8-17 tablet by ity of tablet 00:00: mouth 3 00 (three) Medical times [place] daily as needed for Anxiety. atorvastati 2021-0 Yes [id number] 20mg Take 1 Univers n 20 mg 8-17 tablet by ity of tablet 00:00: mouth at [place] 00 bedtime. Medical Branch pantoprazol 2021-0 Yes [id number] 40mg Take 1 Univers e 40 mg EC 8-17 tablet by ity of tablet 00:00: mouth in [place] 00 the Medical morning. Branch FLUoxetine 2021-0 Yes [id number] TAKE 1 U nivers 40 mg 8-17 CAPSULE BY ity of capsule 00:00: MOUTH [place] 00 DAILY IN [facility] THE [place] MORNING WITH FOOD gabapentin 0 Yes [id number] 300mg Take 1 [facility] 300 mg 8-17 [id number] capsule by ity o f capsule 00:00: mouth at [place] 00 bedtime. Medical Branch QUEtiapine 2021-0 Yes [id number] TAKE ONE Univers 50 mg 8-17 (1) ity of tablet 00:00: TABLET(S) 00 BY MOUTH Medical IN THE [place] MORNING AND 2 TABLETS AT BEDTIME. divalproex 0 Yes [id number] 250mg Take 1 [facility] 250 mg EC 8-17 tablet by ity o f tablet 00:00: mouth in [place] 00 the Medical morning Branch and 1 tablet in the evening. levothyroxi 2021-0 Yes [id number] 50ug Take 1 [facility] ne 50 mcg 8-17 tablet by ity o f tablet 00:00: mouth [place] 00 every Medical morning. Branch hydrOXYzine 0 Yes [id number] 50mg Take 1 [facility] 50 mg 8-17 tablet by ity of tablet 00:00: mouth 3 00 (three) [facility] daily as needed for Anxiety. atorvastati 2021- Yes [id number] 20mg Take 1 Univers n 20 mg 8-17 tablet by ity of tablet 00:00: mouth at [place] 00 bedtime. Medical Branch FLUoxetine 2021-0 Yes [id number] TAKE 1 U nivers 40 mg 8-17 CAPSULE BY ity of capsule 00:00: MOUTH [place] 00 DAILY IN [facility] THE [place] MORNING WITH FOOD gabapentin 2021-0 Yes [id number] 300mg Take 1 [facility] 300 mg 8-17 [id number] capsule by ity o f capsule 00:00: mouth at [place] 00 bedtime. Medical Branch QUEtiapine 0 Yes [id number] TAKE ONE Univers 50 mg 8-17 (1) ity of tablet 00:00: TABLET(S) [place] 00 BY MOUTH Medical IN THE Branch MORNING AND 2 TABLETS AT BEDTIME. divalproex 0 Yes [id number] 250mg Take 1 [facility] 250 mg EC 8-17 tablet by ity o f tablet 00:00: mouth in [place] 00 the Medical morning Branch and 1 tablet in the evening. levothyroxi 0 Yes [id number] 50ug Take 1 [facility] ne 50 mcg 8-17 tablet by ity o f tablet 00:00: mouth [place] 00 every Medical morning. Branch hydrOXYzine 0 Yes [id number] 50mg Take 1 [facility] 50 mg 8-17 tablet by ity of tablet 00:00: mouth 3 [place] 00 (three) Medical times [place] daily as needed for Anxiety. atorvastati 0 Yes [id number] 20mg Take 1 [facility] n 20 mg 8-17 tablet by ity of tablet 00:00: mouth at [place] 00 bedtime. Medical Branch pantoprazol 0 Yes [id number] 40mg Take 1 [facility] e 40 mg EC 8-17 tablet by ity of tablet 00:00: mouth in [place] 00 the Medical morning. Branch FLUoxetine 2021-0 Yes [id number] TAKE 1 U nivers 40 mg 8-17 CAPSULE BY ity of capsule 00:00: MOUTH [place] 00 DAILY IN Medical THE Branch MORNING WITH FOOD gabapentin 2021-0 Yes [id number] 300mg Take 1 [facility] 300 mg 8-17 [id number] capsule by ity o f capsule 00:00: mouth at [place] 00 bedtime. Medical Branch pantoprazol 2021-0 2022- No [id number] 40mg Take 1 Univers e 40 mg EC 8-17 02-16 tablet by ity of tablet 00:00: 00:00 mouth in [place] 00 :00 the Medical morning. Branch QUEtiapine 2021-0 2021- No TAKE ONE Un eddie 50 mg 7-18 08-17 (1) ity of tablet 00:00: 00:00 TABLET(S) [place] 00 :00 BY MOUTH Medical IN THE [place] MORNING AND 2 TABLETS AT BEDTIME. FLUoxetine 2021-0 2021- No TAKE 1 Univ ers 40 mg 6-14 08-17 CAPSULE BY ity of capsule 00:00: 00:00 MOUTH [place] 00 :00 DAILY IN Medical THE Branch MORNING WITH FOOD hydrOXYzine No 50mg Take 50 mg Univers 50 mg 04-17 by mouth 3 ity of tablet 00:00: 00:00 (three) [place] 00 :00 times Medical daily as Branch needed. divalproex 2021- No 250mg Take 250 U nivers 250 mg EC 04-17- mg by ity of tablet 00:00: 00:00 mouth in [place] 00 :00 the Medical morning Branch and 250 mg in the evening. pantoprazol 2020-11 40mg Take 40 mg Univers e 40 mg EC 12-14 by mouth. ity of tablet 00:00: 00:00 [place] 00 :00 [facility] Vital Signs Vital Name Observation Time Observation Value Comments Source HEIGHT 2022-09-29 01:29:00 170.2 cm WEIGHT 2022-09-29 01:29:00 127.007 kg HEIGHT 2022-09-29 01:29:00 170.2 cm WEIGHT 2022-09-29 01:29:00 127.007 kg HEIGHT 2022-09-29 01:29:00 170.2 cm WEIGHT 2022-09-29 01:29:00 127.007 kg Systolic blood 2022-09-25 03:34:00 140 mm[Hg] Univer sity of pressure [facility] Diastolic blood 2022-09-25 03:34:00 83 mm[Hg] Unive rsity of pressure [facility] Heart rate 2022-09-25 03:34:00 90 /min [facility] Oxygen saturation in 2022-09-25 03:34:00 98 /min [facility] Arterial blood by [facility] Pulse oximetry Branch Respiratory rate 2022-09-25 02:08:00 18 /min [facility] acute hospital Body temperature 2022-09-25 00:13:00 36 [facility] Body height 2022-09-25 00:13:00 170.2 cm [facility] Body weight 2022-09-25 00:13:00 129.275 kg [facility] BMI 2022-09-25 00:13:00 44.64 kg/m2 [facility] HEIGHT 2022-09-17 13:50:00 170.2 cm WEIGHT 2022-09-17 13:50:00 127.007 kg HEIGHT 2022-09-17 13:50:00 170.2 cm WEIGHT 2022-09-17 13:50:00 127.007 kg HEIGHT 2022-09-17 13:50:00 170.2 cm WEIGHT 2022-09-17 13:50:00 127.007 kg Systolic blood 2022-06-20 16:27:00 132 mm[Hg] Univer [facility] Diastolic blood 2022-06-20 16:27:00 68 mm[Hg] Unive rsity [facility] Heart rate 2022-06-20 16:27:00 76 /min [facility] Body temperature 2022-06-20 16:27:00 36.28 [facility] Respiratory rate 2022-06-20 16:27:00 18 /min General acute hospital Body weight 2022-06-20 16:27:00 120.203 kg [facility] BMI 2022-06-20 16:27:00 41.50 kg/m2 [facility] Body height 2022-10-26 08:14:00 170.2 cm [facility] Body weight 2022-10-26 08:14:00 127.007 kg [facility] BMI 2022-10-26 08:14:00 43.85 kg/m2 [facility] Systolic blood 2022-10-26 08:12:39 117 mm[Hg] [facility] Diastolic blood 2022-10-26 08:12:39 91 mm[Hg] [facility] pressure Heart rate 2022-10-26 08:12:39 96 /min [facility] Body temperature 2022-10-26 08:12:39 37.06 [facility] Respiratory rate 2022-10-26 08:12:39 17 /min [facility] Oxygen saturation in 2022-10-26 08:12:39 100 /min [facility] Arterial blood by Pulse oximetry BP Systolic 2022-10-16 14:32:00 121 mm[Hg] BP Diastolic 2022-10-16 14:32:00 81 mm[Hg] Weight Measured 2022-10-16 14:32:00 285.40 pounds Height Measured 2022-10-16 14:32:00 67.00 inches Body Temperature 2022-10-16 14:32:00 97.90 degrees Heart Rate 2022-10-16 14:32:00 93.00 /min Respiratory Rate 2022-10-16 14:32:00 17.00 /min Body temperature 2022-10-07 22:24:13 36.06 [place] Respiratory rate 2022-10-07 22:24:13 17 /min [facility] Systolic blood 2022-10-07 21:50:23 121 mm[Hg] [facility] pressure Diastolic blood 2022-10-07 21:50:23 77 mm[Hg] [facility] pressure Heart rate 2022-10-07 21:50:23 86 /min [facility] Oxygen saturation in 2022-10-07 21:50:23 96 /min [facility] Arterial blood by Pulse oximetry Body height 2022-10-05 21:38:00 170.2 cm [facility] Body weight 2022-10-05 21:38:00 127.007 kg [facility] BMI 2022-10-05 21:38:00 43.85 kg/m2 [facility] Systolic blood 2022-09-29 06:56:00 110 mm[Hg] [facility] Diastolic blood 2022-09-29 06:56:00 82 mm[Hg] [facility] Heart rate 2022-09-29 06:56:00 99 /min [facility] Body temperature 2022-09-29 06:56:00 36.67 [place] [facility] Respiratory rate 2022-09-29 06:56:00 17 /min [facility] Oxygen saturation in 2022-09-29 06:56:00 97 /min [facility] Arterial blood by Medical Ce nter Pulse oximetry Body height 2022-09-29 01:29:00 170.2 cm [facility] Body weight 2022-09-29 01:29:00 127.007 kg [facility] BMI 2022-09-29 01:29:00 43.85 kg/m2 [facility] BP Systolic 2022-09-24 17:07:00 125 mm[Hg] BP Diastolic 2022-09-24 17:07:00 85 mm[Hg] Weight Measured 2022-09-24 17:07:00 287.40 pounds Height Measured 2022-09-24 17:07:00 67.00 inches Body Temperature 2022-09-24 17:07:00 97.60 degrees Heart Rate 2022-09-24 17:07:00 107.00 /min Respiratory Rate 2022-09-24 17:07:00 Heart rate 2022-09-19 09:41:00 89 /min [facility] Systolic blood 2022-09-19 07:56:00 109 mm[Hg] [facility] Diastolic blood 2022-09-19 07:56:00 69 mm[Hg] [facility] Body temperature 2022-09-19 07:56:00 36.78 [place] [facility] Respiratory rate 2022-09-19 07:56:00 18 /min [facility] Oxygen saturation in 2022-09-19 07:56:00 94 /min [facility] Arterial blood by Medical Ce nter Pulse oximetry Body height 2022-09-18 14:12:00 170.2 cm [facility] Body weight 2022-09-17 13:50:00 127.007 kg [facility] BMI 2022-09-17 13:50:00 43.85 kg/m2 [facility] BP Systolic 2022-09-06 15:38:00 126 [...] Date / Time Performing Source Performed Clinician URINE CULTURE 2022-10-26 08:56:00 [facility] [place] URINALYSIS SCREEN AND 2022-10-26 08:56:00 [facility] MICROSCOPY, WITH REFLEX TO [place] CULTURE CBC WITH PLATELET AND 2022-10-26 08:53:00 [facility] DIFFERENTIAL [place] COMPREHENSIVE METABOLIC 2022-10-26 08:53:00 [facility] PANEL [place] LIPASE LEVEL 2022-10-26 08:53:00 [facility] [place] LACTIC ACID LEVEL, SEPSIS - 2022-10-26 08:53:00 [facility] NOW AND REPEAT 2X EVERY 3 [place] HOURS HCG QUALITATIVE, SERUM 2022-10-26 08:53:00 [facility] SCREEN [place] ESTIMATED GFR 2022-10-26 08:53:00 [facility] [place] REFERRAL- REQUEST/RESPONSE 2022-10-08 06:01:00 Doctor Unassigned , [facility] [place] [facility] URINE CULTURE 2022-10-07 00:24:00 [facility] VITAMIN B12 LEVEL 2022-10-07 00:24:00 [facility] VITAMIN D 25 HYDROXY LEVEL 2022-10-07 00:24:00 [facility] ANTINUCLEAR ANTIBODIES (JOSE CARLOS) 2022-10-07 00:24:00 [facility] WITH REFLEX TO TITER AND PATTERN, IMMUNOFLUORESCENCE URINE DRUGS OF ABUSE SCREEN 2022-10-07 00:24:00 [facility] URINALYSIS SCREEN AND 2022-10-07 00:24:00 [facility] MICROSCOPY, WITH REFLEX TO CULTURE HIV 1/2 ANTIGEN/ANTIBODY, 2022-10-07 00:24:00 Dewayne, [facility] FOURTH GENERATION, WITH REFLEXES SYPHILIS TREPONEMA SCREEN 2022-10-07 00:24:00 [facility] WITH RPR CONFIRMATION (REVERSE ALGORITHM) SEDIMENTATION RATE 2022-10-07 00:24:00 [facility] C-REACTIVE PROTEIN 2022-10-07 00:24:00 [facility] FOLATE LEVEL 2022-10-07 00:24:00 Dewayne, [facility] spital EEG AWAKE/ASLEEP LESS THAN 2022-10-06 21:46:42 [facility] [address] HEAD WO CONTRAST 2022-10-06 19:55:34 [facility] TTE COMPLETE, W CONTRAST, W 2022-10-06 14:45:00 [facility] DOPPLER ([id number]) CBC WITH PLATELET AND 2022-10-06 09:37:00 [facility] DIFFERENTIAL PROTHROMBIN TIME WITH INR 2022-10-06 09:37:00 [facility] PARTIAL THROMBOPLASTIN TIME 2022-10-06 09:37:00 [facility] (PTT) CREATINE KINASE, TOTAL (CPK) 2022-10-06 09:37:00 [facility] B NATRIURETIC PEPTIDE 2022-10-06 09:37:00 [facility] COMPREHENSIVE METABOLIC 2022-10-06 09:37:00 [facility] PANEL LIPID PANEL 2022-10-06 09:37:00 [facility] spital MAGNESIUM LEVEL 2022-10-06 09:37:00 [facility] spital PHOSPHORUS LEVEL 2022-10-06 09:37:00 [facility] H ospital PREALBUMIN LEVEL 2022-10-06 09:37:00 [facility] ospital THYROID STIMULATING HORMONE 2022-10-06 09:37:00 [facility] T4, FREE 2022-10-06 09:37:00 [facility] spital URIC ACID LEVEL 2022-10-06 09:37:00 [facility] spital BILIRUBIN DIRECT 2022-10-06 09:37:00 [facility] ospital ESTIMATED GFR 2022-10-06 09:37:00 [facility] spital LACTIC ACID LEVEL, SEPSIS - 2022-10-06 06:50:00 [facility] NOW AND REPEAT 2X EVERY 3 HOURS TROPONIN T 2022-10-06 06:50:00 [facility] CT ANGIOGRAM PE CHEST 2022-10-06 03:13:00 [facility]AL[facility] RT-PCR 2022-10-06 02:23:00 [facility] BLOOD CULTURE, AEROBIC & 2022-10-06 02:22:00 [facility] ANAEROBIC TROPONIN T 2022-10-06 00:40:00 [facility] LACTIC ACID LEVEL, SEPSIS - 2022-10-06 00:40:00 [facility] NOW AND REPEAT 2X EVERY 3 HOURS US DUPLEX VENOUS UPPER 2022-10-06 00:00:00 [facility] EXTREMITY BILATERAL ECG ED PRELIMINARY 2022-10-05 23:13:45 [facility] INTERPRETATION CBC WITH PLATELET AND 2022-10-05 21:59:00 [facility] DIFFERENTIAL COMPREHENSIVE METABOLIC 2022-10-05 21:59:00 [facility] PANEL TROPONIN T 2022-10-05 21:59:00 [facility] B NATRIURETIC PEPTIDE 2022-10-05 21:59:00 [facility] HCG QUALITATIVE, SERUM 2022-10-05 21:59:00 Kimani Benítez [facility] SCREEN ESTIMATED GFR 2022-10-05 21:59:00 Kimani Benítez [facility] ECG 12-LEAD 2022-10-05 21:40:19 [facility] 2022-09-29 21:47:14 [facility] CBC W/PLT COUNT & AUTO 2022-09-29 03:42:00 [facility] DIFFERENTIAL [facility] CBC W/PLT COUNT & AUTO 2022-09-29 03:42:00 [facility], [facility] DIFFERENTIAL [facility] (CELLAVISION MANUAL DIFF) 2022-09-29 03:42:00 [facility], [facility] BASIC METABOLIC PANEL 2022-09-29 03:41:00 [facility] MAGNESIUM 2022-09-29 03:41:00 [facility] HCG, QUANTITATIVE, 2022-09-29 03:41:00 [facility] ECG 12-LEAD 2022-09-29 01:36:03 [facility] ECG 12-LEAD 2022-09-29 01:36:03 Unknown, Hl7 Doctor [facility] ECG 12-LEAD 2022-09-29 01:36:03 Unknown, Hl7 Doctor [facility] EKG-SCANNED 2022-09-29 00:00:00 Provider, Default [facility] es [facility] EBV-MONONUCLEOSIS SCREEN 2022-09-25 02:37:00 Oscar Penaloza [facility] POCT TEST 2022-09-25 02:37:00 Oscar Penaloza [facility] URINE DRUG (IMMUNOASSAY) - 2022-09-25 01:47:00 Oscar Penaloza [facility] COMPREHENSIVE DRUG SCREEN Medica l Branch XR CHEST 1 VW 2022-09-25 00:46:04 Oscar Penaloza [facility] MAGNESIUM 2022-09-25 00:38:00 Oscar Penaloza Krystina [facility] TROPONIN I 2022-09-25 00:38:00 Oscar Penaloza Krystina [facility] COMP. METABOLIC PANEL 2022-09-25 00:38:00 Oscar Penaloza [facility] ([id number]) Medical Branch CBC WITH DIFF 2022-09-25 00:38:00 Oscar Penaloza Krystina [facility] D-DIMER 2022-09-25 00:38:00 Oscar Penaloza Krystina [facility] URINALYSIS 2022-09-25 00:38:00 Oscar Penaloza Krystina [facility] N-TERMINAL PRO-BNP 2022-09-25 00:38:00 Oscar Penaloza [facility] CONSENT/REFUSAL FOR 2022-09-25 00:00:04 Doctor Unassigned, [facility] DIAGNOSIS AND TREATMENT [facility] 2D ECHO W/ DOPPLER 2022-09-19 09:42:56 Sathya Rick [facility] (CW/PW/COLOR) [facility] BASIC METABOLIC PANEL 2022-09-19 04:07:00 Ivonne Benitez [facility] MAGNESIUM 2022-09-19 04:07:00 Ivonne Benitez [facility] CBC W/PLT COUNT & AUTO 2022-09-19 04:07:00 Ivonne Benitez [facility] DIFFERENTIAL [facility] CBC W/PLT COUNT & AUTO 2022-09-19 04:07:00 Ivonne Benitez [facility] DIFFERENTIAL [facility] MR BRAIN WITHOUT IV CONTRAST 2022-09-18 18:52:00 Marysol Gerard [facility] MRA NECK WITHOUT IV CONTRAST 2022-09-18 18:51:00 Moustapha [facility] MRA HEAD WITHOUT IV CONTRAST 2022-09-18 18:50:00 Marysol Gerard Sy ed [facility] SCREEN, URINE 2022-09-18 17:28:00 Moustapha Marysol Silveiraed [facility] BASIC METABOLIC PANEL 2022-09-18 05:38:00 Emmanuel [facility] MAGNESIUM 2022-09-18 05:38:00 Emmanuel, [facility] CBC W/PLT COUNT & AUTO 2022-09-18 05:38:00 Emmanuel [facility] HIGH SENSITIVITY TROPONIN I 2022-09-18 05:38:00 [facility] TSH/FREE T4 IF INDICATED 2022-09-18 05:38:00 Emmanuel, [facility] CBC W/PLT COUNT & AUTO 2022-09-18 05:38:00 Emmanuel, [facility] ECG 12-LEAD 2022-09-18 04:54:18 Emmanuel, [facility] ECG 12-LEAD 2022-09-18 04:54:18 Unknown, 7 [facility] ECG 12-LEAD 2022-09-18 04:54:18 Unknown, 7 [facility] URINALYSIS W/ MICROSCOPIC 2022-09-18 02:30:00 Emmanuel [facility] ECG 12-LEAD 2022-09-17 22:28:54 Unknown, 7 [facility] HIGH SENSITIVITY TROPONIN I 2022-09-17 21:19:00 Severe, Steve [facility] CTA CHEST,ABDOMEN & PELVIS - 2022-09-17 21:03:00 Severe, [facility] HCG, QUANTITATIVE, 2022-09-17 18:05:00 Severe, [facility] URINALYSIS W/ MICROSCOPIC 2022-09-17 16:03:00 Severe, Steve [facility] SARS-COV2/RT-PCR (HS & REF 2022-09-17 16:02:00 Severe, Kwabena d [facility] LABS) [facility] CBC W/PLT COUNT & AUTO 2022-09-17 16:02:00 Severe, Steve [facility] Center COMPREHENSIVE METABOLIC 2022-09-17 16:02:00 Severe, Steve [facility] PANEL [facility] B-TYPE NATRIURETIC FACTOR 2022-09-17 16:02:00 Severe, Steve [facility] (BNP[facility] Medical Center LACTIC ACID, VENOUS 2022-09-17 16:02:00 Severe, Steve [facility] HIGH SENSITIVITY TROPONIN I 2022-09-17 16:02:00 Severe, Steve [facility] CBC W/PLT COUNT & AUTO 2022-09-17 16:02:00 Severe, Steve [facility] XR CHEST 2 VIEWS 2022-09-17 14:50:00 Severe, Steve [facility] ECG 12-LEAD 2022-09-17 13:48:54 Severe, Steve [facility] ECG 12-LEAD 2022-09-17 13:48:54 Unknown, Hl7 Doctor [facility] ECG 12-LEAD 2022-09-17 13:48:54 Unknown, Hl7 Doctor [facility] EKG-SCANNED 2022-09-17 00:00:00 Provider, Lanette [facility] REFERRAL- REQUEST/RESPONSE 2022-09-03 05:01:00 Doctor Unassigned , [facility] Plan of Care Planned Activity [...] Cessation Counseling and Screening (12+)] Future Scheduled 2022-11-20 [facility] 13:09:46 screening (procedure) [code = 771396996] Future Scheduled 2022-11-20 [facility] 13:09:46 malignant neoplasm of cervix (procedure) [code = 713568152] Future Scheduled 2022-11-20 COVID[facility]09[facility]46 - Booster for Pfizer series) [code = COVID-19 VACCINE (3 - Booster for Pfizer series)] Future Scheduled 2022-11-20 IN[facility]ZA VACCINE [facility] 13:09:46 [code = INFLUENZA VACCINE] Future Scheduled 2022-11-03 [facility] 22:12:47 screening (procedure) [code = 370586315] Future Scheduled 2022-11-03 [facility] 22:12:47 malignant neoplasm of cervix (procedure) [code = 156668915] Future Scheduled 2022-11-03 COVID-19 VACCINE (3 [facility] Test 22:12:47 - Booster for Pfizer series) [code = COVID-19 VACCINE (3 - Booster for Pfizer series)] Future Scheduled 2022-11-03 INFLUENZA VACCINE [facility] Test 22:12:47 [code = INFLUENZA VACCINE] Future Scheduled 2022-11-03 [facility] 22:12:47 screening (procedure) [code = 471484937] Future Scheduled 2022-11-03 [facility] 22:12:47 malignant neoplasm of cervix (procedure) [code = 759580379] Future Scheduled 2022-11-03 COVID-19 VACCINE (3 [facility] Test 22:12:47 - Booster for Pfizer series) [code = COVID-19 VACCINE (3 - Booster for Pfizer series)] Future Scheduled 2022-11-03 INFLUENZA VACCINE [facility] Test 22:12:47 [code = INFLUENZA VACCINE] Future Scheduled 2022-10-25 [facility] 14[facility]57:33 screening (procedure) [code = 231726818] Future Scheduled 2022-10-25 [facility] 14:57:33 malignant neoplasm of cervix (procedure) [code = 780890865] Future Scheduled 2022-10-25 COVID-19 VACCINE (3 [facility] 14:57:33 - Booster for Pfizer series) [code = COVID-19 VACCINE (3 - Booster for Pfizer series)] Future Scheduled 2022-10-25 [facility]ZA [facility]ACCINE [facility] 14:57:33 [code = INFLUENZA VACCINE] Future Scheduled 2022-10-16 [facility] 16:48:19 screening (procedure) [code = 063036346] Future Scheduled 2022-10-16 [facility] 16:48:19 malignant neoplasm of cervix (procedure) [code = 579826166] Future Scheduled 2022-10-16 COVID-19 VACCINE (3 [facility] 16:48:19 - Booster for Pfizer series) [code = COVID-19 VACCINE (3 - Booster for Pfizer series)] Future Scheduled 2022-10-16 [facility]ACCINE [facility] 16:48:19 [code = INFLUENZA VACCINE] Future Scheduled 2022-10-16 [facility] 16:48:19 screening (procedure) [code = 892996748] Future Scheduled 2022-10-16 [facility] 16:48:19 malignant neoplasm of cervix (procedure) [code = 060821518] Future Scheduled 2022-10-16 COVID-19 VACCINE (3 [facility] 16:48:19 - Booster for Pfizer series) [code = COVID-19 VACCINE (3 - Booster for Pfizer series)] Future Scheduled 2022-10-16 [facility]ACCINE [facility] 16:48:19 [code = INFLUENZA VACCINE] Future Scheduled 2022-10-15 HEPATITIS B VACCINES [facility] Test 10:25:35 (1 of 3 - 3-dose series) [code = HEPATITIS B VACCINES (1 of 3 - 3-dose series)] Future Scheduled 2022-10-15 [facility] 10:25:35 screening (procedure) [code = 187652362] Future Scheduled 2022-10-15 [facility] 10:25:35 malignant neoplasm of cervix (procedure) [code = 920841759] Future Scheduled 2022-10-15 COVID-19 VACCINE (3 [facility] 10:25:35 - Booster for Pfizer series) [code = COVID-19 VACCINE (3 - Booster for Pfizer series)] Future Scheduled 2022-10-15 [facility]ENZA [facility]ACCINE [facility] 10:25:35 [code = INFLUENZA VACCINE] Future Scheduled 2022-10-15 [facility]:25:35 (1 of 3 - 3-dose series) [code = HEPATITIS B VACCINES (1 of 3 - 3-dose series)] Future Scheduled 2022-10-15 [facility] 10:25:35 screening (procedure) [code = 808805548] Future Scheduled 2022-10-15 [facility] 10:25:35 malignant neoplasm of cervix (procedure) [code = 325286056] Future Scheduled 2022-10-15 COVID-19 VACCINE (3 Meth [...] C enter of cervix (procedure) [code = 645421469] Future Scheduled [address] [facility] 00:00:00 malignant neoplasm Medical C enter of cervix (procedure) [code = 856236620] Future Scheduled [address] [facility] 00:00:00 malignant neoplasm Medical C enter of cervix (procedure) [code = 053708738] Future Scheduled [address] [facility] 00:00:00 malignant neoplasm Medical C enter of cervix (procedure) [code = 160935552] Future Scheduled [address] [facility] Test 00:00:00 malignant neoplasm Medical C enter of cervix (procedure) [code = 511007899] Future Scheduled [address] [facility] Test 00:00:00 malignant neoplasm Medical C enter of cervix (procedure) [code = 887676365] Future Scheduled [address] [facility] Test 00:00:00 malignant neoplasm Medical C enter of cervix (procedure) [code = 100756634] Future Scheduled [address] [facility] Test 00:00:00 malignant neoplasm Medical C enter of cervix (procedure) [code = 407698546] Future Scheduled [address] [facility] Test 00:00:00 malignant neoplasm Medical C enter of cervix (procedure) [code = 889903749] Future Scheduled [address] [facility] Test 00:00:00 malignant neoplasm Medical C enter of cervix (procedure) [code = 240052062] Future Scheduled [address] [facility] Test 00:00:00 malignant neoplasm Medical C enter of cervix (procedure) [code = 641936519] Future Scheduled [address] [facility] (procedure) [code = [facility] 81213264] Future Scheduled [address] [facility] 00:00:00 (procedure) [code = [facility] Center 07470012] Future Scheduled [address] [facility] Test 00:00:00 (procedure) [code = [facility] 19421502] Future Scheduled [address] [facility] Test 00:00:00 (procedure) [code = [facility] Center 87506991] Future Scheduled [address] [facility] Test 00:00:00 (procedure) [code = [facility] Center 93487175] Future Scheduled [address] [facility] Test 00:00:00 (procedure) [code = [facility] 16455503] Future Scheduled [address] [facility] Test 00:00:00 (procedure) [code = [facility] Center 02101830] Future Scheduled [address] [facility] Test 00:00:00 (procedure) [code = [facility] 31472611] Future Scheduled [address] [facility] Test 00:00:00 (procedure) [code = [facility] 97474348] Future Scheduled [address] [facility] Test 00:00:00 (procedure) [code = [facility] 17932499] Future Scheduled [address] [facility] 00:00:00 (procedure) [code = [facility] Center 69426030] Future Scheduled 2008 DTAP/TDAP/TD [facility] [...] Goal Plan of Care Note [code = 72318-8] Goal Plan of Care Note [code = 01464-3] Goal Plan of Care Note [code = 04150-9] Goal Plan of Care Note [code = 33993-3] Goal Plan of Care Note [code = 72125-4] Goal Plan of Care Note [code = 14900-2] Goal Plan of Care Note [code = 07389-8] Goal Plan of Care Note [code = 47190-7] Goal Plan of Care Note [code = 43406-8] Goal Plan of Care Note [code = 10113-4] Goal Plan of Care Note [code = 10317-8] Goal Plan of Care Note [code = 81856-2] Goal Plan of Care Note [code = 06798-7] Goal Plan of Care Note [code = 61651-1] Goal Plan of Care Note [code = 75833-1] Goal Plan of Care Note [code = 01186-8] Goal Plan of Care Note [code = 51980-1] Goal Plan of Care Note [code = 86047-1] Goal Plan of Care Note [code = 69042-5] Goal Plan of Care Note [code = 74618-5] Goal Plan of Care Note [code = 43321-5] Goal Plan of Care Note [code = 62503-8] Goal Plan of Care Note [code = 75966-2] Goal Plan of Care Note [code = 08454-8] Goal Plan of Care Note [code = 16115-2] Goal Plan of Care Note [code = 19841-2] Goal Plan of Care Note [code = 28061-2] Goal Plan of Care Note [code = 30713-0] Goal Plan of Care Note [code = 27840-8] Goal Plan of Care Note [code = 31168-3] Goal Plan of Care Note [code = 65407-8] Goal Plan of Care Note [code = 78882-3] Goal Plan of Care Note [code = 39452-0] Goal Plan of Care Note [code = 33022-9] Goal Plan of Care Note [code = 51014-0] Goal Plan of Care Note [code = 10444-9] Goal Plan of Care Note [code = 92075-7] Goal Plan of Care Note [code = 61500-8] Goal Plan of Care Note [code = 32003-5] Goal Plan of Care Note [code = 84681-3] Goal Plan of Care Note [code = 66777-4] Goal Plan of Care Note [code = 35872-5] Goal Plan of Care Note [code = 35760-8] Goal Plan of Care Note [code = 94692-2] Goal Plan of Care Note [code = 95515-0] Goal Plan of Care Note [code = 16307-8] Goal Plan of Care Note [code = 57202-4] Goal Plan of Care Note [code = 42306-7] Goal Plan of Care Note [code = 34703-6] Goal Plan of Care Note [code = 57999-8] Goal Plan of Care Note [code = 90307-3] Goal Plan of Care Note [code = 60085-0] Encounters Start End Encounter Admission Attending Care Care Encounter Source Date/Time Date/Time Type Type Clinicians Facility Department ID 2022-04-24 Outpatient STOCKS, MHCY URO [id number] MH CY 16:04:42 DORIS 2022-12-18 2022-12-18 Doris Holden 1.2.840.114 [id number] Univers 00:00:00 00:00:00 Y PEDIATRIC 350.1.13.10 [place] [id number] [place] [address] [facility] 2022-11-08 2022-11-08 Outpatient [facility] [id number] James 10:28:10 10:28:10 09810 F Gustabo 2022-11-07 2022-11-07 Outpatient [facility] [id number] James 11:06:31 11:06:31 [id number] F Gustabo 2022-10-26 2022-10-26 Emergency Tiff Mcgraw 1.2.840.1 [id number] Methodi 02:17:00 03:37:00 Agustin Dowd 38116.1.1 748 s t 3.430.2.7 Hospit a .3.656189 l .8 2022-10-26 2022-10-26 Travel 1.2.840.1 1.2.670.437 [id number] Methodi 00:00:00 00:00:[address] 3.430.2.7 0.2.7.3.698 Ho spita .3.518754 084.8 l .8 2022-10-26 2022-10-26 Emergency TIFF MCGRAW [facility] [id number] 5288 Mcintosh 00:00:00 00:00:[address] 2022-10-26 2022-10-26 Travel 1.2.840.1 1.2.831.794 [id number] Methodi 00:00:00 00:00:[address] 3.430.2.7 0.2.7.3.698 Ho spita .3.323476 084.8 l .8 2022-10-25 2022-10-25 [facility] 1.2.840.114 [id number] Univers 00:00:00 00:00:00 (Out) [facility] HEALTH 350.1.13.10 it y of Neurology [place] [phone] [place] [address] [address] OFFICE [facility] 2022-10-21 2022-10-21 Doris Holden 1.2.840.114 [id number] Univers 00:00:00 00:00:00 Y PEDIATRIC 350.1.13.10 [place] [id number] [facility] PRIMARY [address] CARE [facility] 2022-10-16 2022-10-16 Outpatient [facility] [id number] 202 James 14:25:22 14:25:22 89767 F Gustabo 2022-10-16 2022-10-16 Outpatient [id number] 55822s-m 00:00:00 00:00:00 Visit z227-911e 821-470f-b -iu2l-f5m y5d-v7h048 1739u084d 2l049d 2022-10-10 2022-10-10 Patient Vinicius, 1.2.840.1 [id number] Methodi 00:00:00 00:00:00 Outreach Laura 32232.1.[address] 3.430.2.7 Hospit a .3.219048 l .8 2022-10-10 2022-10-10 Patient Vinicius, 1.2.840.1 [id number] Methodi 00:00:00 00:00:00 Outreach Laura 42289.1.[address] 3.430.2.7 Hospit a .3.248825 l .8 2022-10-08 2022-10-08 Orders Doctor REJI 1.2.840.114 [id number] Univers 00:00:00 00:00:00 Only Unassigned, ARISTEO 350.1.13.10 ity of [facility] 4.2.7.2.686 Miguel Angel as [phone] [facility] [address] 2022-10-05 2022-10-07 Emergency Donny Noel 1.2.840.1 1040 [id number] [id number] Methodi 15:40:00 17:25:00 [place] [address]187.1.[address] 3.430.2.7 Hospit a .3.794621 l .8 2022-10-05 2022-10-07 Emergency Donny Noel 1.2.840.1 1040 [id number] Methodi 15:40:00 17:25:00 Rich [place] [address]49.1.[address] 3.430.2.7 Hospit a .3.363487 l .8 2022-10-02 2022-10-02 Outpatient [facility] [id number]- James 13:45:08 13:45:08 32530 F Gustabo 2022-09-29 2022-09-29 Outpatient [facility] [id number] [facility] 00:00:00 23:59:00 Kaylni Medicin e 2022-09-29 2022-09-[address] [facility] [id number] 01:36:00 07:44:00 Rossy garcia [facility] 2022-09-29 2022-09-29 Emergency ER [facility] SLE Emergency [id number] [facility] 01:36:00 07:44:00 ROSSY GARCIA 2022-09-29 2022-09-[address] [facility] [id number] 01:36:00 07:44:00 Rossy garcia [facility] 2022-09-29 2022-09-[address] [facility] [id number] [facility] 00:[facility]00 00:00:00 [facility] 2022-09-29 2022-09-[address] [facility] [id number] [facility] 00:[facility]00 00:00:00 [facility] 2022-09-24 2022-09-24 Emergency X Oscar PENALOZA [facility] ERT [id number] Univers 18:19:00 21:37:00 ity of [facility] 2022-09-24 2022-09-24 Emergency Oscar Penaloza [facility] 1.2.840.114 [id number] Univers 18:19:00 21:37:00 Krystina LOPEZ 350.1.13.10 i juan daniel [facility] 4.2.7.2.686 [facility] [id number] [place] [address] [address] 2022-09-24 2022-09-24 Outpatient SFA [facility] [id number]- James 17:01:48 17:01:48 30059 F Gustabo 2022-09-24 2022-09-24 Outpatient [id number]- [id number] 750ecf-8 00:00:00 00:00:00 Visit 3v9u-758q o2d-492h-y -l22i-gbd 83e-cedbd8 so5vr4x80 ce2f51 2022-09-17 2022-09-19 Emergency Severe, Steve [facility] [id number] 13:57:00 17:05:00 [facility] 2022-09-17 2022-09-19 Outpatient ER [facility], [facility] Emergency [id number] SLE 13:57:00 17:05:00 [facility] 2022-09-17 2022-09-19 Emergency ER Severe, Steve [facility] [id number] 13:57:00 17:05:00 [facility] 2022-09-18 2022-09-[address] [facility] [id number] [facility] 00:[facility]00 00:00:00 [facility] 2022-09-18 2022-09-[address] [facility] [id number] [facility] 00:[facility]00 00:00:00 [facility] 2022-09-17 2022-09-17 Outpatient [facility] [id number] [facility] 00:00:00 23:59:00 Lawanda 2022-09-17 2022-09-17 Orders [facility] [id number] 00:00:00 00:00:00 Only [facility] 2022-09-17 2022-09-17 Orders [facility] [id number] 00:00:00 00:00:00 Only [facility] 2022-09-11 2022-09-11 Outpatient SFA SFA [id number] James 16:14:02 16:14:02 [id number] F Gustabo 2022-09-06 2022-09-06 Outpatient SFA SFA [id number]- James 15:21:36 15:21:36 [id number] F Gustabo 2022-09-06 2022-09-06 Outpatient p1kz1xb2- [id number] f2 ku1hr0-w 00:00:00 00:00:00 Visit e68w-83d9 39a-44a9-a -c863-32n 149-52f05c 20t3z1074 8k9940 2022-09-03 2022-09-03 Outpatient [facility] [id number] James 14:25:05 14:25:05 18398 F Gustabo 2022-09-03 2022-09-03 Orders Doctor REJI 1.2.840.114 [id number] Univers 00:00:00 00:00:00 Only Unassigned, ARISTEO 350.1.13.10 ity of [facility] 4.2.7.2.686 Miguel Angel as [id number] [place] [address] [address] 2022-09-03 2022-09-03 Outpatient 11fccdbf- [id number] fccdbf-f 00:00:00 00:00:00 Visit k987-2009 793-4010-8 -7oy6-446 [id number] 3514o94h8 8e17d2 2022-07-11 2022-07-12 Emergency [facility] 20:54:00 00:37:00 [facility] 2022-06-20 2022-06-20 Outpatient R DORIS STOVALL [facility] [id number] Univers 11:15:00 13:07:14 ity of [facility] 2022-06-20 2022-06-20 Office Doris Stovall 1.2.840.114 [id number] Univers 11:15:00 13:07:14 Visit Y PEDIATRIC 350.1.13.10 [place] [id number] [facility] PRIMARY [address] CARE CLINIC 2022-06-19 2022-06-19 Urgent Eblin [facility] 1.2.840.114 [id number] [facility] Univers 16:00:00 16:20:00 [facility] 350.1.13.10 it y of [place] 4.2.7.2.686 Miguel Angel as HARPREET?BLEA [id number] [place] nii [address] MEDICAL OFFICE BUILDING 2022-06-19 2022-06-19 Outpatient R SHELIA [facility] [id number] Univers 16:00:00 16:00:00 JENNIFERSILVANA ity [facility] 2022-06-19 2022-06-19 Orders Doctor MENDOZA 1.2.840.114 [id number] Univers 00:00:00 00:00:00 Only Unassigned, ARISTEO 350.1.13.10 ity of [place] [facility] 4.2.7.2.686 Miguel Angel as [id number] [address] 2022-04-24 2022-04-24 Outpatient E SHAUNA MHC[facility] [...] 2022-03-26 2022-03-26 Emergency EM Crook, HCATB HCATB [id number] [facility] 21:24:00 22:58:00 Dav [id number] [facility] [place] 2022-03-26 2022-03-26 Emergency EM Crook, HCATB EO3 [id number] [facility] 21:24:00 22:58:00 Dav 03 [facility] [place] Results Test Description Test Time Test Comments Results Result Comments Source [facility] 2022-11-09 05:01:14 Test Item Value Reference Range Interpretation Comme nts [facility], THIRD GENERATION (test 1.840 UIU/ML 0.400-4.100 UNLESS OTHERWISE INDICATED, code = 2821) ALL TESTING PER FORMED ATCLINICAL PATH OLOGY LABORATORIES, [facility] [address] [place] [address] 9973 MACHINE PACKAGE SEALER: GAY KWONG M.D. PLACIDO Rodgers [id number] [facility] [place] [id number] Urine [id number] 10:18:00 Test Item Value Reference Range Interpretation Comments Urine culture (test SEE COMMENT Bacteriu marija screen code = 2968490) negative. [facility]2022-12-23 10:18:00 Test Item Value Reference Range Interpretation Comments Urine culture (test SEE COMMENT Bacteriu marija screen code = 6292725) negative. [facility]2022-12-23 10:18:00 Test Item Value Reference Range Interpretation Comments Urine culture (test SEE COMMENT Bacteriu marija screen code = 3938652) negative. [facility]2022-12-04 01:05:00 Test Item Value Reference Range Interpretation Comments Urine culture (test SEE COMMENT Bacteriu marija screen code = 9401917) negative. [facility]2022-12-04 01:05:00 Test Item Value Reference Range Interpretation Comments Urine culture (test SEE COMMENT Bacteriu marija screen code = 4743876) negative. [facility]2022-12-04 01:05:00 Test Item Value Reference Range Interpretation Comments Urine culture (test SEE COMMENT Bacteriu marija screen code = 3376558) negative. [facility]2022-12-04 01:05:00 Test Item Value Reference Range Interpretation Comments Urine culture (test SEE COMMENT Bacteriu marija screen code = 3966856) negative. [facility]2022-12-04 01:05:00 Test Item Value Reference Range Interpretation Comments Urine culture (test SEE COMMENT Bacteriu marija screen code = 6638833) negative. [address]2022-12-03 22:11:54 Test Item Value Reference Range Interpretation Comments Ventricular rate (test 90 code = 253) Atrial rate (test code = 90 255) NE interval (test code = 156 266) QRSD interval (test code 88 = 260) QT interval (test code = 328 264) QTC interval (test code 401 = 265) P axis 1 (test code = -3 267) QRS axis 1 (test code = 14 268) T wave axis (test code = 56 270) EKG impression (test Normal sinus code = 273) rhythm-Nonspecific T wave abnormality-Abnormal ECG-No previous ECGs available-Electronica lly Signed By Reji Albrecht MD ([id number]) on 10/06/2022 4:11:[address]2022-12-03 22:11:54 Test Item Value Reference Range Interpretation Comments Ventricular rate (test code = 253) Atrial rate (test code = 255) NE interval (test code = 266) QRSD interval [...] Albrecht MD ([id number]) on 10/06/2022 4:11:[address]2022-12-03 22:11:54 Test Item Value Reference Range Interpretation Comments Ventricular rate (test code = 253) Atrial rate (test code = 255) NE interval (test code = 266) QRSD interval [...] Albrecht MD (1008) on 10/06/2022 4:11:[address]2022-12-03 22:11:54 Test Item Value Reference Range Interpretation Comments Ventricular rate (test code = 253) Atrial rate (test code = 255) NE interval (test code = 266) QRSD interval [...] Albrecht MD (1008) on 10/06/2022 4:11:[address]2022-12-03 22:11:54 Test Item Value Reference Range Interpretation Comments Ventricular rate (test code = 253) Atrial rate (test code = 255) NE interval (test code = 266) QRSD interval [...] Albrecht MD (1008) on 10/06/2022 4:11:[address]2022-12-03 22:11:54 Test Item Value Reference Range Interpretation Comments Ventricular rate (test code = 253) Atrial rate (test code = 255) NE interval (test code = 266) QRSD interval [...] Albrecht MD (1008) on 10/06/2022 4:11:[address]2022-12-03 22:11:54 Test Item Value Reference Range Interpretation Comments Ventricular rate (test code = 253) Atrial rate (test code = 255) NE interval (test code = 266) QRSD interval [...] Albrecht MD ([id number]) on 10/06/2022 4:11:50 PM [facility] 12 [id number] 22:11:54 Test Item Value Reference Range Interpretation Comments Ventricular rate (test code = 253) Atrial rate (test code = 255) NE interval (test code = 266) QRSD interval [...] Albrecht MD ([id number]) on 10/06/2022 4:11:50 [facility] [Presence] in Respiratory specimen by MARIA C with probe [id number] 00:39:44 Test Item Value Reference Range Interpretation Comments SARS-CoV-2 (COVID-19) RNA Not detected [Presence] in Respiratory specimen by MARIA C with probe detection (test code = 44841-3) Whether patient is employed in a Unknown healthcare setting (test code = 20284-1) Whether the patient has symptoms Unknown related to condition of interest (test code = 84953-8) Whether the patient was Unknown hospitalized for condition of interest (test code = 82130-3) Whether the patient was admitted Unknown to intensive care unit (ICU) for condition of interest (test code = 08849-0) Whether patient resides in a Unknown congregate care setting (test code = 21288-5) status (test code = Unknown 10037-4) Date and time of symptom onset Unknown (test code = 33943-0) [facility] ED Preliminary Interpretation - Not an [id number] 23:13:45 Test Item Value Reference Range Interpretation Comments JAYDE (test code = JAYDE) Donny Noel MD 11/03/2022 9:53 [facility] Preliminary Interpretation - Not an OrderPerformed by: Donny Noel MDAuthorized by: Donny Noel MD ECG reviewed by ED Physician in the absence of a chainsaw mechanic: yes Interpretation: Interpretation: abnormal Rate: ECG rate: 90 ECG rate assessment: normal Rhythm: Rhythm: sinus rhythm QRS: QRS axis: Normal QRS intervals: NormalST segments: ST segments: NormalComments: twi Lab Interpretation Abnormal (test code = 35939-4) [facility] Preliminary Interpretation - Not an [id number] 23:13:45 Test Item Value Reference Range Interpretation Comments JAYDE (test code = JAYDE) Donny Noel MD 11/03/2022 9:53 [facility] Preliminary Interpretation - Not an OrderPerformed by: Donny Noel MDAuthorized by: Donny Noel MD ECG reviewed by ED Physician in the absence of a chainsaw mechanic: yes Interpretation: Interpretation: abnormal Rate: ECG rate: 90 ECG rate assessment: normal Rhythm: Rhythm: sinus rhythm QRS: QRS axis: Normal QRS intervals: NormalST segments: ST segments: NormalComments: twi Lab Interpretation Abnormal (test code = 81066-7) [facility] Preliminary Interpretation - Not an [id number] 23:13:45 Test Item Value Reference Range Interpretation Comments JAYDE (test code = JAYDE) Donny Noel MD 11/03/2022 9:53 [facility] Preliminary Interpretation - Not an OrderPerformed by: Donny Noel MDAuthorized by: Donny Noel MD ECG reviewed by ED Physician in the absence of a chainsaw mechanic: yes Interpretation: Interpretation: abnormal Rate: ECG rate: 90 ECG rate assessment: normal Rhythm: Rhythm: sinus rhythm QRS: QRS axis: Normal QRS intervals: NormalST segments: ST segments: NormalComments: twi Lab Interpretation Abnormal (test code = 91002-4) [facility](CELLAVISION MANUAL DIFF)2022-09-29 06:57:14 Test Item Value Reference [...] CONCENTRATION Adequate (CELLAVISION)(BEAKER) (test code = 3438) Gas Station Supervisor ID - Carlee Brown comments: Slide comments:CBC W/PLT COUNT & AUTO [id number] 06:57:13 Test Item Value Reference Range Interpretation [...] (BEAKER) (test code = 413) HCG, QUANTITATIVE, [id number] 05:03:53 Test Item Value Reference Range Interpretation Comments GONADOTROPIN, CHORIONIC (HCG) QUANT < mIU/mL 0-10 (BEAKER) (test code = 649) Non- Females: <10 mIU/mL Females: Gestation Age Reference Range(mIU/mL) 0.2-1 Week 5-50 1-2 Weeks 50-500 2-3 Weeks 100-5,000 3-4 Weeks 500-10,000 4-5 Weeks 1,000-50,000 5-6 Weeks 10,000-100,000 6-8 Weeks 15,000- 200,000 2-3 Months 10,000-100,000 Gas Station Supervisor PAM DE LA CRUZ [id number] 04:29:17 Test Item Value Reference Range Interpretation Comments MAGNESIUM (BEAKER) 1.9 mg/dL 1.6-2.6 Specimen slightly (test code = 627) hemolyzed [employer] Supervisor ID - DOROTHY LBASIC METABOLIC [id number] 04:29:17 Test Item Value Reference Range Interpretation [...] not appl icable for dialysis patien ts [employer] Supervisor ID - DOROTHY LOZADA-MONONUCLEOSIS [id number] 03:07:10 Test Item Value Reference Range Interpretation Comments EBV Mononucleosis Screen (test code Negative Negative = 8914564830) Lab Interpretation (test code = Normal 56560-6) [id number] 02:37[facility]00 Test Item Value Reference Range Interpretation Comments POCT PREG (test code = 1605) negative On board controls acceptable with present C Line (test code = 3574) POCT PREG LOT # (test code = 3575) [id number] POCT PREG TEST DATE (test 02/02/2024 code = 3576) Lab Interpretation (test code = Normal 08570-7) [facility] [id number] 01:15:13 Test Item Value Reference Interpretation Comments Range TROPONIN I (test 0.002 ng/mL See_Comment [Automated code = 1054912978) message] The system which generated this result transmitted reference range : <=0.034. The reference range was not used to interpret this result as normal/abnormal . AJYDE (test code = Reference (Normal) JAYDE) Range [...] biotin. Lab Interpretation Normal (test code = 73161-7) [facility]AL [id number] 01:11:55 Test Item Value Reference Range Interpretation Comments NT-proBNP (test code 16 pg/mL See_Comment [Autom ated = 3762497973) message] The system which generated this result transmitted reference range : <=125. The reference range was not used to interpret this result as normal/abnormal . JAYDE (test code = JAYDE) Biotin has been reported to cause a negative bias, interpret results relative to patient's use of biotin. Lab Interpretation Normal (test code = 23575-3) [facility] CenterD-[id number] 01:10:03 Test Item Value Reference Interpretation Comments Range D-DIMER (test code = See_Comment [Autom ated 6573693663) message] The system which generated this result [...] diagnosis. Lab Interpretation Normal (test code = 85325-5) [facility]UM2022-11-22 01:03:37 Test Item Value Reference Range Interpretation Comments MAGNESIUM (test code = 2261872860) 1.9 mg/dL 1.7-2.4 Lab Interpretation (test code = Normal 18914-7) [facility]. METABOLIC PANEL (33626)2022-09-25 01:03:36 Test Item Value Reference Range Interpretation Comments NA (test code = 142 mmol/L 135-145 5415948405) K (test code = 3.8 mmol/L 3.5-5.0 8208706809) CL (test code = 111 mmol/L 98-108 H 5008767171) CO2 TOTAL (test code = 21 mmol/L 23-31 L 1583996050) AGAP (test code = 2-16 3183387348) BUN (test code = 11 mg/dL 7-23 8069818827) GLUCOSE (test code = 110 mg/dL 70-110 4328077709) CREATININE (test code = 0.92 mg/dL 0.50-1.04 8267366942) TOTAL BILI (test code = 0.4 mg/dL 0.1-1.9 0015837784) CALCIUM (test code = 9.1 mg/dL 8.6-10.6 4973954426) T PROTEIN (test code = 6.9 g/dL 6.3-8.2 0240692537) ALBUMIN (test code = 4.3 g/dL 3.5-5.0 0058146406) ALK PHOS (test code = 121 U/L 34-122 8257748382) ALTv (test code = 54 U/L 5-35 H 1742-6) AST(SGOT) (test code = 38 U/L 13-40 5147845564) eGFR (test code = mL/min/1.73m2 6632041129) JAYDE (test code = JAYDE) Association of [...] tests). Lab Interpretation Abnormal (test code = 54973-7) [facility] WITH [id number] 00:50:11 Test Item Value Reference Range Interpretation Comments WBC (test code = See_Comment H [Automated 8653-2) message] The sy stem which generated this result transmitted reference range : 4.30 - 11.10 10*3/?L. The reference range was not used to interpret this result as normal/abnormal . RBC (test code = See_Comment [Automated 026-8) message] The sy stem which generated this [...] RDW-SD (test code = 48.3 fL 39.0-49.9 21481-1) RDW-CV (test code = 16.0 % 12.0-15.5 H 788-0) PLT (test code = See_Comment [Automated 777-3) message] The sy stem which generated this result transmitted reference range : 166 - 358 10*3/ ?L. The reference r jason was not used to interpret this result as normal/abnormal . MPV (test code = 9.9 fL 9.5-12.9 63636-4) NRBC/100 WBC (test See_Comment [Automat ed code = 3150584665) message] The system which generated this result transmitted reference range : 0.0 - 10.0 /100 WBCs. The refer ence range was not u sed to interpret th is result as normal/abnormal . NRBC x10^3 (test code See_Comment [Auto mated = 3438305667) message] The s ystem which generated this result transmitted reference range : 10*3/?L. The reference range was not used to interpret this result as normal/abnormal . GRAN MAT (NEUT) % 71.2 % (test code = 770-8) IMM GRAN % (test code 0.90 % = 4170313229) LYMPH % (test code = 20.4 % 736-9) MONO % (test code = 6.0 % 5905-5) EOS % (test code = 1.1 % 713-8) BASO % (test code = 0.4 % 706-2) GRAN MAT x10^3(ANC) 9.94 10*3/uL 1.88-7.09 H (test code = 9180509862) IMM GRAN x10^3 (test 0.12 10*3/uL 0.00-0.06 H code = 5899201995) LYMPH x10^3 (test code 2.84 10*3/uL 1.32-3.29 = 731-0) MONO x10^3 (test code 0.84 10*3/uL 0.33-0.92 = 742-7) EOS x10^3 (test code = 0.15 10*3/uL 0.03-0.39 711-2) BASO x10^3 (test code 0.05 10*3/uL 0.01-0.07 = 704-7) Lab Interpretation Abnormal (test code = 62840-6) [facility] W/Doppler(CW/PW/Color)2022-09-19 12:25:54Ejection FractionSLEH ECHO HEARTLAB YASMEEN [facility] Echo W/Doppler(CW/PW/Color)2022-09-19 12:25:54Ejection FractionSLEH ECHO HEARTLAB MKJUANON [facility]2D Echo W/Doppler(CW/PW/Color)2022-09-19 12:25:54Ejection FractionSLEH ECHO HEARTLAB YASMEEN [facility]2D Echo W/Doppler(CW/PW/Color) 2022-09-19 12:25:54Ejection FractionSLEH [facility]CHO [facility]ARTLAB [facility](CW/PW/Color)2022-09-19 12:25:54Ejection FractionSLEH ECHO HEARTLAB FREDOKORY [facility]2D Echo W/Doppler(CW/PW/Color)2022-09-19 12:25:54Ejection FractionSLEH ECHO HEARTLAB [facility] W/Doppler(CW/PW/Color) 2022-09-19 12:25:54Ejection FractionSLEH ECHO HEARTLAB [facility] W/Doppler(CW/PW/Color)2022-09-19 12:25:54Ejection FractionSLEH ECHO HEARTLAB YASMEEN [facility]2D Echo W/Doppler(CW/PW/Color)2022-09-19 12:25:54Ejection FractionSLEH ECHO HEARTLAB YASMEEN [facility]2D Echo W/Doppler(CW/PW/Color) 2022-09-19 12:25:54Ejection FractionSLEH ECHO HEARTLAB [facility] W/Doppler(CW/PW/Color)2022-09-19 12:25:54Ejection FractionSLEH ECHO HEARTLAB [facility] HospitalBASIC METABOLIC [id number] 06:21:24 Test Item Value Reference Range Interpretation [...] not appl icable for dialysis patien ts [employer] Supervisor ID - BAN [id number] 06:21:24 Test Item Value Reference Range Interpretation Comments MAGNESIUM (BEAKER) (test code = 2.0 mg/dL 1.6-2.6 627) [employer] Supervisor ID - BAN MCBC W/PLT COUNT & AUTO [id number] 05:15:21 Test Item Value Reference Range Interpretation [...] code = 2801) MR, MRA, BRAIN, WITHOUT [id number] 20:21:00Reason for exam:->Ischemic Stroke EvaluationCH[facility] : 1990 Sex: [...] 09/18/2022 20:21:23 MR, MRA, NECK, WITHOUT IV [id number] 20:21:00Reason for exam:->[facility]schem[facility] : 1990 Sex: FFINAL [...] Verified Date/Time: 09/18/2022 20:21:23 MR, BRAIN, WITHOUT [id number] 20:21:00Reason for exam:->[facility]schemic Stroke EvaluationM[facility]Name: [facility] : 1990 Sex: FFINAL [...] [place] MDReport Verified Date/Time: 09/18/2022 20:21:23 Screen, [id number] 17:50:03 Test Item Value Reference Range Interpretation Comments Preg Test, Ur (test code = 2112-1) Negative Negative Lab Interpretation (test code = Normal 18041-5) [facility] [id number] 17:50:03 Test Item Value Reference Range Interpretation Comments Preg Test, Ur (test code = 2112-1) Negative Negative Lab Interpretation (test code = Normal 38944-5) [facility], [id number] 17:50:03 Test Item Value Reference Range Interpretation Comments Preg Test, Ur (test code = 2112-1) Negative Negative Lab Interpretation (test code = Normal 82206-2) [facility], [id number] 17:50:03 Test Item Value Reference Range Interpretation Comments Preg Test, Ur (test code = 2112-1) Negative Negative Lab Interpretation (test code = Normal 35595-6) [facility] [id number] 17:50:03 Test Item Value Reference Range Interpretation Comments Preg Test, Ur (test code = 2112-1) Negative Negative Lab Interpretation (test code = Normal 82472-6) [facility], [id number] 17:50:03 Test Item Value Reference Range Interpretation Comments Preg Test, Ur (test code = 2112-1) Negative Negative Lab Interpretation (test code = Normal 61977-0) [facility], [id number] 17:50:03 Test Item Value Reference Range Interpretation Comments Preg Test, Ur (test code = 2112-1) Negative Negative Lab Interpretation (test code = Normal 83834-0) [facility], [id number] 17:50:03 Test Item Value Reference Range Interpretation Comments Preg Test, Ur (test code = 2112-1) Negative Negative Lab Interpretation (test code = Normal 03460-9) [facility], [id number] 17:50:03 Test Item Value Reference Range Interpretation Comments Preg Test, Ur (test code = 2112-1) Negative Negative Lab Interpretation (test code = Normal 53830-0) [facility], [id number] 17:50:03 Test Item Value Reference Range Interpretation Comments Preg Test, Ur (test code = 2112-1) Negative Negative Lab Interpretation (test code = Normal 93603-3) [facility], [id number] 17:50:03 Test Item Value Reference Range Interpretation Comments Preg Test, Ur (test code = 2112-1) Negative Negative Lab Interpretation (test code = Normal 93545-7) [facility]Y SCREEN, [id number] 17:50:03 Test Item Value Reference Range Interpretation Comments TEST URINE (BEAKER) (test Negative Negative code = 583) Urinalysis w/ [id number] 07:01:05 Test Item Value Reference Range Interpretation Comments Color, UA (test code Yellow = 5778-6) Clarity, UA (test Clear code = 5767-9) Specific [place], UA >1.050 1.001-1.035 H (test code = 5811-5) pH, UA (test code = 9.0 5.0-8.0 H 5803-2) Protein, UA (test 70 mg/dL Negative A code = 69197-8) Glucose, UA (test Negative Negative code = 365) Ketones, UA (test Negative Negative code = 2514-8) Bilirubin, UA (test Negative Negative code = 65916-9) Blood, UA (test code Negative Negative = 78130-2) Nitrite, UA (test Negative Negative code = 5802-4) Leukocytes, UA (test Negative Negative code = 5799-2) Urobilinogen, UA 0.2 0.2-1.0 (test code = 83190-7) RBC, UA (test code = 2 See_Comment [Autom ated 36017-2) message] The system which generated this result [...] 4 See_Comment [Automate d (test code = 24878-0) messag e] The system which generated this result transmit ajay reference range : /HPF. The reference range was not used to interpret this result as normal/abnormal . Specimen Source (test Urine, Clean code = 2795) Catch JAYDE (test code = JAYDE) [employer] Super[employer] ID - tech Lab Interpretation Abnormal (test code = 03754-2) [facility]/ [id number] 07:01:05 Test Item Value Reference Range Interpretation Comments Color, UA (test code Yellow = 5778-6) Clarity, UA (test Clear code = 5767-9) Specific [place], UA >1.050 1.001-1.035 H (test code = 5811-5) pH, UA (test code = 9.0 5.0-8.0 H 5803-2) Protein, UA (test 70 mg/dL Negative A code = 64753-4) Glucose, UA (test Negative Negative code = 365) Ketones, UA (test Negative Negative code = 2514-8) Bilirubin, UA (test Negative Negative code = 06839-5) Blood, UA (test code Negative Negative = 62922-7) Nitrite, UA (test Negative Negative code = 5802-4) Leukocytes, UA (test Negative Negative code = 5799-2) Urobilinogen, UA 0.2 0.2-1.0 (test code = 03741-1) RBC, UA (test code = 2 See_Comment [Autom ated 56458-1) message] The system which generated this result [...] 4 See_Comment [Automate d (test code = 96947-1) messag e] The system which generated this result transmit ajay reference range : /HPF. The reference range was not used to interpret this result as normal/abnormal . Specimen Source (test Urine, Clean code = 2795) Catch JAYDE (test code = JAYDE) [employer] Supervisor ID - tech Lab Interpretation Abnormal (test code = 09991-8) [facility]/ [id number] 07:01:05 Test Item Value Reference Range Interpretation Comments Color, UA (test code Yellow = 5778-6) Clarity, UA (test Clear code = 5767-9) Specific [place], UA >1.050 1.001-1.035 H (test code = 5811-5) pH, UA (test code = 9.0 5.0-8.0 H 5803-2) Protein, UA (test 70 mg/dL Negative A code = 25362-3) Glucose, UA (test Negative Negative code = 365) Ketones, UA (test Negative Negative code = 2514-8) Bilirubin, UA (test Negative Negative code = 48091-1) Blood, UA (test code Negative Negative = 13838-1) Nitrite, UA (test Negative Negative code = 5802-4) Leukocytes, UA (test Negative Negative code = 5799-2) Urobilinogen, UA 0.2 0.2-1.0 (test code = 32864-5) RBC, UA (test code = 2 See_Comment [Autom ated 96759-4) message] The system which generated this result [...] 4 See_Comment [Automate d (test code = 00604-1) messag e] The system which generated this result transmit ajay reference range : /HPF. The reference range was not used to interpret this result as normal/abnormal . Specimen Source (test Urine, Clean code = 2795) Catch JAYDE (test code = JAYDE) [employer] Supervisor ID - tech Lab Interpretation Abnormal (test code = 76120-7) [facility]/ Uktotzeefsf4327-09-79 07:01:05 Test Item Value Reference Range Interpretation Comments Color, UA (test code Yellow = 5778-6) Clarity, UA (test Clear code = 5767-9) Specific [place], UA >1.050 1.001-1.035 H (test code = 5811-5) pH, UA (test code = 9.0 5.0-8.0 H 5803-2) Protein, UA (test 70 mg/dL Negative A code = 82807-6) Glucose, UA (test Negative Negative code = 365) Ketones, UA (test Negative Negative code = 2514-8) Bilirubin, UA (test Negative Negative code = 54038-5) Blood, UA (test code Negative Negative = 91998-3) Nitrite, UA (test Negative Negative code = 5802-4) Leukocytes, UA (test Negative Negative code = 5799-2) Urobilinogen, UA 0.2 0.2-1.0 (test code = 74535-9) RBC, UA (test code = 2 See_Comment [Autom ated 80224-9) message] The system which generated this result [...] 4 See_Comment [Automate d (test code = 55380-5) messag e] The system which generated this result transmit ajay reference range : /HPF. The reference range was not used to interpret this result as normal/abnormal . Specimen Source (test Urine, Clean code = 2795) Catch JAYDE (test code = JAYDE) [employer] Supervisor ID - tech Lab Interpretation Abnormal (test code = 58281-0) [facility] Xmvfpjqpghp4360-25-71 07:01:05 Test Item Value Reference Range Interpretation Comments Color, UA (test code Yellow = 5778-6) Clarity, UA (test Clear code = 5767-9) Specific [place], UA >1.050 1.001-1.035 H (test code = 5811-5) pH, UA (test code = 9.0 5.0-8.0 H 5803-2) Protein, UA (test 70 mg/dL Negative A code = 22768-5) Glucose, UA (test Negative Negative code = 365) Ketones, UA (test Negative Negative code = 2514-8) Bilirubin, UA (test Negative Negative code = 71800-0) Blood, UA (test code Negative Negative = 46477-5) Nitrite, UA (test Negative Negative code = 5802-4) Leukocytes, UA (test Negative Negative code = 5799-2) Urobilinogen, UA 0.2 0.2-1.0 (test code = 15822-6) RBC, UA (test code = 2 See_Comment [Autom ated 13729-4) message] The system which generated this result [...] 4 See_Comment [Automate d (test code = 52794-2) messag e] The system which generated this result transmit ajay reference range : /HPF. The reference range was not used to interpret this result as normal/abnormal . Specimen Source (test Urine, Clean code = 2795) Catch JAYDE (test code = JAYDE) [employer] Supervisor ID - tech Lab Interpretation Abnormal (test code = 44484-2) [facility] Ohlockxatcl3948-64-64 07:01:05 Test Item Value Reference Range Interpretation Comments Color, UA (test code Yellow = 5778-6) Clarity, UA (test Clear code = 5767-9) Specific [place], UA >1.050 1.001-1.035 H (test code = 5811-5) pH, UA (test code = 9.0 5.0-8.0 H 5803-2) Protein, UA (test 70 mg/dL Negative A code = 62069-8) Glucose, UA (test Negative Negative code = 365) Ketones, UA (test Negative Negative code = 2514-8) Bilirubin, UA (test Negative Negative code = 51218-5) Blood, UA (test code Negative Negative = 38855-4) Nitrite, UA (test Negative Negative code = 5802-4) Leukocytes, UA (test Negative Negative code = 5799-2) Urobilinogen, UA 0.2 0.2-1.0 (test code = 11766-5) RBC, UA (test code = 2 See_Comment [Autom ated 59541-0) message] The system which generated this result [...] 4 See_Comment [Automate d (test code = 29140-6) messag e] The system which generated this result transmit ajay reference range : /HPF. The reference range was not used to interpret this result as normal/abnormal . Specimen Source (test Urine, Clean code = 2795) Catch JAYDE (test code = JAYDE) [employer] Supervisor ID - tech Lab Interpretation Abnormal (test code = 50858-4) [facility] Pwrtbwtrcax2523-86-58 07:01:05 Test Item Value Reference Range Interpretation Comments Color, UA (test code Yellow = 5778-6) Clarity, UA (test Clear code = 5767-9) Specific [place], UA >1.050 1.001-1.035 H (test code = 5811-5) pH, UA (test code = 9.0 5.0-8.0 H 5803-2) Protein, UA (test 70 mg/dL Negative A code = 34380-8) Glucose, UA (test Negative Negative code = 365) Ketones, UA (test Negative Negative code = 2514-8) Bilirubin, UA (test Negative Negative code = 21735-3) Blood, UA (test code Negative Negative = 52794-0) Nitrite, UA (test Negative Negative code = 5802-4) Leukocytes, UA (test Negative Negative code = 5799-2) Urobilinogen, UA 0.2 0.2-1.0 (test code = 39090-8) RBC, UA (test code = 2 See_Comment [Autom ated 78557-7) message] The system which generated this result [...] 4 See_Comment [Automate d (test code = 07173-3) messag e] The system which generated this result transmit ajay reference range : /HPF. The reference range was not used to interpret this result as normal/abnormal . Specimen Source (test Urine, Clean code = 2795) Catch JAYDE (test code = JAYDE) [employer] Supervisor ID - tech Lab Interpretation Abnormal (test code = 87295-3) [facility] Jllqxmogyxz1341-94-36 07:01:05 Test Item Value Reference Range Interpretation Comments Color, UA (test code Yellow = 5778-6) Clarity, UA (test Clear code = 5767-9) Specific [place], UA >1.050 1.001-1.035 H (test code = 5811-5) pH, UA (test code = 9.0 5.0-8.0 H 5803-2) Protein, UA (test 70 mg/dL Negative A code = 80409-0) Glucose, UA (test Negative Negative code = 365) Ketones, UA (test Negative Negative code = 2514-8) Bilirubin, UA (test Negative Negative code = 98693-0) Blood, UA (test code Negative Negative = 47902-3) Nitrite, UA (test Negative Negative code = 5802-4) Leukocytes, UA (test Negative Negative code = 5799-2) Urobilinogen, UA 0.2 0.2-1.0 (test code = 65114-2) RBC, UA (test code = 2 See_Comment [Autom ated 55744-8) message] The system which generated this result [...] 4 See_Comment [Automate d (test code = 37414-7) messag e] The system which generated this result transmit ajay reference range : /HPF. The reference range was not used to interpret this result as normal/abnormal . Specimen Source (test Urine, Clean code = 2795) Catch JAYDE (test code = JAYDE) [employer] Supervisor ID - tech Lab Interpretation Abnormal (test code = 07862-4) [facility] Vtfqycpprli2165-62-51 07:01:05 Test Item Value Reference Range Interpretation Comments Color, UA (test code Yellow = 5778-6) Clarity, UA (test Clear code = 5767-9) Specific [place], UA >1.050 1.001-1.035 H (test code = 5811-5) pH, UA (test code = 9.0 5.0-8.0 H 5803-2) Protein, UA (test 70 mg/dL Negative A code = 68865-9) Glucose, UA (test Negative Negative code = 365) Ketones, UA (test Negative Negative code = 2514-8) Bilirubin, UA (test Negative Negative code = 87987-1) Blood, UA (test code Negative Negative = 31869-4) Nitrite, UA (test Negative Negative code = 5802-4) Leukocytes, UA (test Negative Negative code = 5799-2) Urobilinogen, UA 0.2 0.2-1.0 (test code = 64195-3) RBC, UA (test code = 2 See_Comment [Autom ated 55998-3) message] The system which generated this result [...] 4 See_Comment [Automate d (test code = 03784-4) messag e] The system which generated this result transmit ajay reference range : /HPF. The reference range was not used to interpret this result as normal/abnormal . Specimen Source (test Urine, Clean code = 2795) Catch JAYDE (test code = JAYDE) [employer] Supervisor ID - tech Lab Interpretation Abnormal (test code = 19679-2) [facility] Lgbexeqdfno4129-35-80 07:01:05 Test Item Value Reference Range Interpretation Comments Color, UA (test code Yellow = 5778-6) Clarity, UA (test Clear code = 5767-9) Specific [place], UA >1.050 1.001-1.035 H (test code = 5811-5) pH, UA (test code = 9.0 5.0-8.0 H 5803-2) Protein, UA (test 70 mg/dL Negative A code = 39050-9) Glucose, UA (test Negative Negative code = 365) Ketones, UA (test Negative Negative code = 2514-8) Bilirubin, UA (test Negative Negative code = 40708-1) Blood, UA (test code Negative Negative = 17507-4) Nitrite, UA (test Negative Negative code = 5802-4) Leukocytes, UA (test Negative Negative code = 5799-2) Urobilinogen, UA 0.2 0.2-1.0 (test code = 44384-8) RBC, UA (test code = 2 See_Comment [Autom ated 47602-2) message] The system which generated this result [...] 4 See_Comment [Automate d (test code = 98482-6) messag e] The system which generated this result transmit ajay reference range : /HPF. The reference range was not used to interpret this result as normal/abnormal . Specimen Source (test Urine, Clean code = 2795) Catch JAYDE (test code = JAYDE) [employer] Supervisor ID - tech Lab Interpretation Abnormal (test code = 40948-8) [facility] Ctsfisdjiir3870-33-32 07:01:05 Test Item Value Reference Range Interpretation Comments Color, UA (test code Yellow = 5778-6) Clarity, UA (test Clear code = 5767-9) Specific [place], UA >1.050 1.001-1.035 H (test code = 5811-5) pH, UA (test code = 9.0 5.0-8.0 H 5803-2) Protein, UA (test 70 mg/dL Negative A code = 82211-5) Glucose, UA (test Negative Negative code = 365) Ketones, UA (test Negative Negative code = 2514-8) Bilirubin, UA (test Negative Negative code = 68968-4) Blood, UA (test code Negative Negative = 03590-4) Nitrite, UA (test Negative Negative code = 5802-4) Leukocytes, UA (test Negative Negative code = 5799-2) Urobilinogen, UA 0.2 0.2-1.0 (test code = 06175-7) RBC, UA (test code = 2 See_Comment [Autom ated 82456-4) message] The system which generated this result [...] 4 See_Comment [Automate d (test code = 08643-6) messag e] The system which generated this result transmit ajay reference range : /HPF. The reference range was not used to interpret this result as normal/abnormal . Specimen Source (test Urine, Clean code = 2795) Catch JAYDE (test code = JAYDE) [employer] Supervisor ID - tech Lab Interpretation Abnormal (test code = 42987-6) [facility] [id number] 07:01:05 Test Item Value Reference Range Interpretation [...] (test code Urine, Clean Catch = 2795) [employer] Supervisor ID - qcrwOTEICLNRH5409-62-65 06:54:51 Test Item Value Reference Range Interpretation Comments MAGNESIUM (BEAKER) (test code = 2.1 mg/dL 1.6-2.6 627) Gas Station Supervisor ID - BAN MBASIC METABOLIC [id number] 06:54:50 Test Item Value Reference Range Interpretation [...] not appl icable for dialysis patien ts Gas Station Supervisor ID - BAN MTSH/FREE T4 IF [id number] 06:50:48 Test Item Value Reference Range Interpretation Comments THYROID STIMULATING HORMONE 1.889 uIU/mL 0.350-4.940 (BEAKER) (test code = 772) Gas Station Supervisor ID - BAN MHIGH SENSITIVITY TROPONIN [id number] 06:31:22 Test Item Value Reference Range Interpretation Comments HIGH SENSITIVITY < pg/ml See_Comment [Automated message] TROPONIN I (test code = The system which 4083962) generated this result transmitted ref erence range: <=17. Th e reference range was not used to interpr et this result as normal/abnormal . Gas Station Supervisor ID - BAN MThe MEMBER SERVICES COORDINATOR STAT High Sensitivity Troponin-I results should be used in conjunction with other diagnostic information such as ECG, clinical observations and information, and patient symptoms to aid in the diagnosis of MA.CBC W/PLT COUNT & AUTO [id number] 06:05:36 Test Item Value Reference Range Interpretation [...] (test code = 2801) HIGH SENSITIVITY TROPONIN [id number] 22:00:49 Test Item Value Reference Range Interpretation Comments HIGH SENSITIVITY < pg/ml See_Comment [Automated message] TROPONIN I (test code = The system which 7286871) generated this result transmitted ref erence range: <=17. Th e reference range was not used to interpr et this result as normal/abnormal . Gas Station Supervisor ID - MITCHThe MEMBER SERVICES COORDINATOR STAT High Sensitivity Troponin-I results should be used in conjunction with other diagnostic information such as ECG, clinical observations and information, and patientsymptoms to aid in the diagnosis of MA. CTA, CHEST, ABDOMEN - PELVIS, FOR [id number] 21:55:00Unlisted Reason for Exam - Click Yes and Enter Reason Below->YesUnlisted Reason for Exam->Severe chest pain that radiates to the back [facility] 1990 Sex: FFINAL REPORT TECHNIQUE: CTA of [...] within the abdomen or pelvis. Signed: Chepe [place] Verified Date/Time: 09/17/2022 21:55:51 HCG, QUANTITATIVE, [id number] 19:18:36 Test Item Value Reference Range Interpretation Comments GONADOTROPIN, CHORIONIC (HCG) QUANT < mIU/mL 0-10 (BEAKER) (test code = 649) Non- Females: <10 mIU/mL Females: Gestation Age Reference Range(mIU/mL) 0.2-1 Week 5-50 1-2 Weeks 50-500 2-3 Weeks 100-5,000 3-4 Weeks 500-10,000 4-5 Weeks 1,000-50,000 5-6 Weeks 10,000-100,000 6-8 Weeks 15,000- 200,000 2-3 Months 10,000-100,000 Gas Station Supervisor ID - MITCHSARS-CoV2/RT-PCR (Asymptomatic ONLY)2022-09-17 17:05:31 Test Item Value Reference Interpretation Comments Range SARS-COV2/RT-PCR Negative Negative The SARS-Co V-2 (test code = target nucleic 64778-9) acids are not detected in thi s [...] revoked sooner. Fact Sheet for Healthcare Providers: https://www.[employer]/Documents/Xp ert%20Xpress%20SAR S%20CoV-2/Fact%20S heets/302-3802%20S ARS-COV-2%20HEALTH CARE%20PROVIDERS%2 0FACT%20SHEET.pdf Fact Sheet for Healthcare Patients: https://www.[employer]/Documents/Xp ert%20Xpress%20SAR S%20CoV-2/Fact%20S heets/302-3801%20S ARS-COV-2%20PATIEN T%20FACT%20SHEET.p df Lab Interpretation Normal (test code = 73293-3) [facility] 17:05:31 Test Item Value Reference Interpretation Comments Range SARS-COV2/RT-PCR Negative Negative The SARS-Co V-2 (test code = target nucleic 50580-2) acids are not detected in thi s [...] revoked sooner. Fact Sheet for Healthcare Providers: https://www.[employer]/Documents/Xp ert%20Xpress%20SAR S%20CoV-2/Fact%20S heets/302-3802%20S ARS-COV-2%20HEALTH CARE%20PROVIDERS%2 0FACT%20SHEET.pdf Fact Sheet for Healthcare Patients: https://www.[employer]/Documents/Xp ert%20Xpress%20SAR S%20CoV-2/Fact%20S heets/302-3801%20S ARS-COV-2%20PATIEN T%20FACT%20SHEET.p df Lab Interpretation Normal (test code = 04530-4) [facility]2022-09-17 17:05:31 Test Item Value Reference Interpretation Comments Range SARS-COV2/RT-PCR Negative Negative The SARS-Co V-2 (test code = target nucleic 63173-8) acids are not detected in thi s [...] of COVID-19 by the ir healthcare provider. JADYE (test code = This test has been [...] revoked sooner. Fact Sheet for Healthcare Providers: https://www.[employer]/Documents/Xp ert%20Xpress%20SAR S%20CoV-2/Fact%20S heets/302-3802%20S ARS-COV-2%20HEALTH CARE%20PROVIDERS%2 0FACT%20SHEET.pdf Fact Sheet for Healthcare Patients: https://www.[employer]/Documents/Xp ert%20Xpress%20SAR S%20CoV-2/Fact%20S heets/302-3801%20S ARS-COV-2%20PATIEN T%20FACT%20SHEET.p df Lab Interpretation Normal (test code = 23449-2) [facility]17 17:05:31 Test Item Value Reference Interpretation Comments Range SARS-COV2/RT-PCR Negative Negative The SARS-Co V-2 (test code = target nucleic 37331-0) acids are not detected in thi s [...] revoked sooner. Fact Sheet for Healthcare Providers: https://www.[employer]/Documents/Xp ert%20Xpress%20SAR S%20CoV-2/Fact%20S heets/302-3802%20S ARS-COV-2%20HEALTH CARE%20PROVIDERS%2 0FACT%20SHEET.pdf Fact Sheet for Healthcare Patients: https://www.[employer]/Documents/Xp ert%20Xpress%20SAR S%20CoV-2/Fact%20S heets/302-3801%20S ARS-COV-2%20PATIEN T%20FACT%20SHEET.p df Lab Interpretation Normal (test code = 27204-6) [facility]22-[facility]-17 17:05:31 Test Item Value Reference Interpretation Comments Range SARS-COV2/RT-PCR Negative Negative The SARS-Co V-2 (test code = target nucleic 68089-5) acids are not detected in thi s [...] revoked sooner. Fact Sheet for Healthcare Providers: https://www.[employer]/Documents/Xp ert%20Xpress%20SAR S%20CoV-2/Fact%20S heets/3023802%20S ARS-COV-2%20HEALTH CARE%20PROVIDERS%2 0FACT%20SHEET.pdf Fact Sheet for Healthcare Patients: https://www.[employer]/Documents/Xp ert%20Xpress%20SAR S%20CoV-2/Fact%20S heets/302-3801%20S ARS-COV-2%20PATIEN T%20FACT%20SHEET.p df Lab Interpretation Normal (test code = 64062-8) [facility]2022-[facility]-17 17:05:31 Test Item Value Reference Interpretation Comments Range SARS-COV2/RT-PCR Negative Negative The SARS-Co V-2 (test code = target nucleic 56511-4) acids are not detected in thi s [...] revoked sooner. Fact Sheet for Healthcare Providers: https://www.[employer]/Documents/Xp ert%20Xpress%20SAR S%20CoV-2/Fact%20S heets/302-3802%20S ARS-COV-2%20HEALTH CARE%20PROVIDERS%2 0FACT%20SHEET.pdf Fact Sheet for Healthcare Patients: https://www.[employer]/Documents/Xp ert%20Xpress%20SAR S%20CoV-2/Fact%20S heets/302-3801%20S ARS-COV-2%20PATIEN T%20FACT%20SHEET.p df Lab Interpretation Normal (test code = 11418-7) [facility]2022-[facility]-17 17:05:31 Test Item Value Reference Interpretation Comments Range SARS-COV2/RT-PCR Negative Negative The SARS-Co V-2 (test code = target nucleic 40150-1) acids are not detected in thi s [...] revoked sooner. Fact Sheet for Healthcare Providers: https://www.[employer]/Documents/Xp ert%20Xpress%20SAR S%20CoV-2/Fact%20S heets/3023802%20S ARS-COV-2%20HEALTH CARE%20PROVIDERS%2 0FACT%20SHEET.pdf Fact Sheet for Healthcare Patients: https://www.[employer]/Documents/Xp ert%20Xpress%20SAR S%20CoV-2/Fact%20S heets/302-3801%20S ARS-COV-2%20PATIEN T%20FACT%20SHEET.p df Lab Interpretation Normal (test code = 36424-0) [facility]2022-[facility]-17 17:05:31 Test Item Value Reference Interpretation Comments Range SARS-COV2/RT-PCR Negative Negative The SARS-Co V-2 (test code = target nucleic 25898-8) acids are not detected in thi s [...] revoked sooner. Fact Sheet for Healthcare Providers: https://www.[employer]/Documents/Xp ert%20Xpress%20SAR S%20CoV-2/Fact%20S heets/302-3802%20S ARS-COV-2%20HEALTH CARE%20PROVIDERS%2 0FACT%20SHEET.pdf Fact Sheet for Healthcare Patients: https://www.[employer]/Documents/Xp ert%20Xpress%20SAR S%20CoV-2/Fact%20S heets/302-3801%20S ARS-COV-2%20PATIEN T%20FACT%20SHEET.p df Lab Interpretation Normal (test code = 16992-0) [facility]2022-09-17 17:05:31 Test Item Value Reference Interpretation Comments Range SARS-COV2/RT-PCR Negative Negative The SARS-Co V-2 (test code = target nucleic 66450-0) acids are not detected in thi s [...] revoked sooner. Fact Sheet for Healthcare Providers: https://www.[employer]/Documents/Xp ert%20Xpress%20SAR S%20CoV-2/Fact%20S heets/302-3802%20S ARS-COV-2%20HEALTH CARE%20PROVIDERS%2 0FACT%20SHEET.pdf Fact Sheet for Healthcare Patients: https://www.[employer]/Documents/Xp ert%20Xpress%20SAR S%20CoV-2/Fact%20S heets/302-3801%20S ARS-COV-2%20PATIEN T%20FACT%20SHEET.p df Lab Interpretation Normal (test code = 18743-0) [facility]2022-09-17 17:05:31 Test Item Value Reference Interpretation Comments Range SARS-COV2/RT-PCR Negative Negative The SARS-Co V-2 (test code = target nucleic 18563-4) acids are not detected in thi s [...] revoked sooner. Fact Sheet for Healthcare Providers: https://www.[employer]/Documents/Xp ert%20Xpress%20SAR S%20CoV-2/Fact%20S heets/302-3802%20S ARS-COV-2%20HEALTH CARE%20PROVIDERS%2 0FACT%20SHEET.pdf Fact Sheet for Healthcare Patients: https://www.[employer]/Documents/Xp ert%20Xpress%20SAR S%20CoV-2/Fact%20S heets/302-3801%20S ARS-COV-2%20PATIEN T%20FACT%20SHEET.p df Lab Interpretation Normal (test code = 60513-1) [facility]2022-[facility]-17 17:05:31 Test Item Value Reference Interpretation Comments Range SARS-COV2/RT-PCR Negative Negative The SARS-Co V-2 (test code = target nucleic 74154-4) acids are not detected in thi s [...] revoked sooner. Fact Sheet for Healthcare Providers: https://www.[employer]/Documents/Xp ert%20Xpress%20SAR S%20CoV-2/Fact%20S heets/302-3802%20S ARS-COV-2%20HEALTH CARE%20PROVIDERS%2 0FACT%20SHEET.pdf Fact Sheet for Healthcare Patients: https://www.[employer]/Documents/Xp ert%20Xpress%20SAR S%20CoV-2/Fact%20S heets/302-3801%20S ARS-COV-2%20PATIEN T%20FACT%20SHEET.p df Lab Interpretation Normal (test code = 60975-3) [facility]2022-09-17 17:05:31 Test Item Value Reference Range Interpretation Comments SARS-COV2/RT-PCR Negative Negative The SARS-Co V-2 target (test code = nucleic acids a re not 7266382) detected in thi s specimen. Negative result [...] revoked sooner. Fact Sheet for Healthcare Providers: https://www.[employer]/Documents/Xpert%20Xpress%20SARS%20CoV-2/Fact%20Sheets/3023802%58ZDPT-NYN-3%20 HEALTHCARE%20PROVIDERS%20FACT%20SHEET.pdf Fact Sheet for Healthcare Patients: https://www.[employer]/Documents/Xpert%20Xp ress%20SARS%20CoV-2/Fact%20Sheets/3023801%12WWUN-VRD-4%20PATIENT%20FACT%20SHEET .pdfURINALYSIS W/ [id number] 16:55:30 Test Item Value Reference Range Interpretation [...] (test code Urine, Clean Catch = 2795) Gas Station Supervisor ID - [auto]Gas Station Supervisor ID - techB-TYPE NATRIURETIC FACTOR (BNP)2022-09-17 16:53:49 Test Item Value Reference Range Interpretation Comments B-TYPE NATRIURETIC PEPTIDE (BEAKER) < pg/mL 0-100 (test code = 700) Gas Station Supervisor ID - MITCHHIGH SENSITIVITY TROPONIN [id number] 16:50:10 Test Item Value Reference Range Interpretation Comments HIGH SENSITIVITY < pg/ml See_Comment [Automated message] TROPONIN I (test code = The system which [id number]) generated this result transmitted ref erence range: <=17. Th e reference range was not used to interpr et this result as normal/abnormal . Gas Station Supervisor ID - MITCHThe MEMBER SERVICES COORDINATOR STAT High Sensitivity Troponin-I results should be used in conjunction with other diagnostic information such as ECG, clinical observations and information, and patientsymptoms to aid in the diagnosis of MA. COMPREHENSIVE METABOLIC [id number] 16:46:05 Test Item Value Reference Range Interpretation [...] not appl icable for dialysis patien ts Gas Station Supervisor ID - MITCHLACTIC ACID, [id number] 16:29:26 Test Item Value Reference Range Interpretation Comments LACTATE BLOOD VENOUS (2) (BEAKER) 1.86 mmol/L 0.50-2.20 (test code = 2872) Gas Station Supervisor ID - BAN MCBC W/PLT COUNT & AUTO [id number] 16:21:12 Test Item Value Reference Range Interpretation [...] (test code = 2801) RAD, CHEST, 2 [id number] 14:55:00Reason for exam:->SHORTNESS OF BREATHReason for exam:->CHEST PAIN [facility] : 1990 Sex: FFINAL REPORT INDICATION: SHORTNESS OF BREATHCHEST PAIN COMPARISON: None TECHNIQUE: AP and lateral view of the chest. FINDINGS: Lungs and pleura: Clear lungs. No effusion.Heart and mediastinum: Normal heart size. Unremarkable mediastinal contours.Osseous structures: No acute abnormality.Other: None. IMPRESSION: No acute intrathoracic abnormality. Signed: Joanna Moser MDReport Verified Date/Time: 09/17/2022 14:55:44 Reading Location: [address] Reading Room CULTURE, [id number] 00:00:00 Test Item Value Reference Range Interpretation Comments CULTURE, URINE (test SPECIMEN NUMBER: code = 19497) [id number] CULTURE, [id number] 00:00:00 Test Item Value Reference Range Interpretation Comments CULTURE, URINE (test SPECIMEN NUMBER: code = 82725) [id number] CULTURE, [id number] 00:00:00 Test Item Value Reference Range Interpretation Comments CULTURE, URINE (test SPECIMEN NUMBER: code = 31275) [id number] CULTURE, [id number] 00:00:00 Test Item Value Reference Range Interpretation Comments CULTURE, URINE (test SPECIMEN NUMBER: code = 91402) [id number] JOSE CARLOS [id number] 00:00:00 Test Item Value Reference Range Interpretation Comments ANTI-NUCLEAR ANTIBODIES (test NEGATIVE code = 3506) JOSE CARLOS PATTERN (REPORTED SEE BELOW TITER) (test code = 08550) HOMOGENEOUS (test code = NEGATIVE TITER 74663) SPECKLED (test code = 087329) NEGATIVE TITER DENSE FINE SPECKLED (test code NEGATIVE TITER = 86654) CENTROMERE (test code = NEGATIVE TITER 344070) COARSE SPECKLED (test code = NEGATIVE TITER 139119) DISCRETE NUCLEAR DOTS (test NEGATIVE TITER code = 108648) NUCLEOLAR (test code = 477687) NEGATIVE TITER NUCLEAR MEMBRANE (test code = NEGATIVE TITER 718680) CYTO. RETICULAR (RAMANDEEP) (test NEGATIVE code = 423315) COMMENTS (test code = 048456) NONE METHOD (test code = 41338) (NOTE) JOSE CARLOS [id number] 00:00:00 Test Item Value Reference Range Interpretation Comments ANTI-NUCLEAR ANTIBODIES (test NEGATIVE code = 3506) JOSE CARLOS PATTERN (REPORTED SEE BELOW TITER) (test code = 07720) HOMOGENEOUS (test code = NEGATIVE TITER 87767) SPECKLED (test code = 439866) NEGATIVE TITER DENSE FINE SPECKLED (test code NEGATIVE TITER = 70227) CENTROMERE (test code = NEGATIVE TITER 262301) COARSE SPECKLED (test code = NEGATIVE TITER 781742) DISCRETE NUCLEAR DOTS (test NEGATIVE TITER code = 050545) NUCLEOLAR (test code = 099997) NEGATIVE TITER NUCLEAR MEMBRANE (test code = NEGATIVE TITER 109781) CYTO. RETICULAR (RAMANDEEP) (test NEGATIVE code = 261017) COMMENTS (test code = 112317) NONE METHOD (test code = 93119) (NOTE) JOSE CARLOS [id number] 00:00:00 Test Item Value Reference Range Interpretation Comments ANTI-NUCLEAR ANTIBODIES (test NEGATIVE code = 3506) JOSE CARLOS PATTERN (REPORTED SEE BELOW TITER) (test code = 86767) HOMOGENEOUS (test code = NEGATIVE TITER 42326) SPECKLED (test code = 236113) NEGATIVE TITER DENSE FINE SPECKLED (test code NEGATIVE TITER = 17845) CENTROMERE (test code = NEGATIVE TITER 438355) COARSE SPECKLED (test code = NEGATIVE TITER 427759) DISCRETE NUCLEAR DOTS (test NEGATIVE TITER code = 598218) NUCLEOLAR (test code = 716189) NEGATIVE TITER NUCLEAR MEMBRANE (test code = NEGATIVE TITER 986452) CYTO. RETICULAR (RAMANDEEP) (test NEGATIVE code = 174649) COMMENTS (test code = 378724) NONE METHOD (test code = 94602) (NOTE) JOSE CARLOS [id number] 00:00:00 Test Item Value Reference Range Interpretation Comments ANTI-NUCLEAR ANTIBODIES (test NEGATIVE code = 3506) JOSE CARLOS PATTERN (REPORTED SEE BELOW TITER) (test code = 11565) HOMOGENEOUS (test code = NEGATIVE TITER 33728) SPECKLED (test code = 841323) NEGATIVE TITER DENSE FINE SPECKLED (test code NEGATIVE TITER = 76838) CENTROMERE (test code = NEGATIVE TITER 302157) COARSE SPECKLED (test code = NEGATIVE TITER 957346) DISCRETE NUCLEAR DOTS (test NEGATIVE TITER code = 577557) NUCLEOLAR (test code = 516687) NEGATIVE TITER NUCLEAR MEMBRANE (test code = NEGATIVE TITER 981095) CYTO. RETICULAR (RAMANDEEP) (test NEGATIVE code = 938320) COMMENTS (test code = 481067) NONE METHOD (test code = 96006) (NOTE) RHEUMATOID FACTOR, [id number] 00:00:00 Test Item Value Reference Range Interpretation Comments RHEUMATOID FACTOR, QUANT (test code 11 IU/ML = 3502) RHEUMATOID FACTOR, [id number] 00:00:00 Test Item Value Reference Range Interpretation Comments RHEUMATOID FACTOR, QUANT (test code 11 IU/ML = 3502) RHEUMATOID FACTOR, [id number] 00:00:00 Test Item Value Reference Range Interpretation Comments RHEUMATOID FACTOR, QUANT (test code 11 IU/ML = 3502) C-REACTIVE [id number] 00:00:00 Test Item Value Reference Range Interpretation Comments C-REACTIVE PROTEIN (test code = 0.5 MG/DL 3513) C-REACTIVE [id number] 00:00:00 Test Item Value Reference Range Interpretation Comments C-REACTIVE PROTEIN (test code = 0.5 MG/DL 3513) SEDIMENTATION [id number] 00:00:00 Test Item Value Reference Range Interpretation Comments SEDIMENTATION RATE (test code = 23 MM/HOUR 1017) SEDIMENTATION [id number] 00:00:00 Test Item Value Reference Range Interpretation Comments SEDIMENTATION RATE (test code = 23 MM/HOUR 1017) CCP [id number] 00:00:00 Test Item Value Reference Range Interpretation Comments CCP IgG (test code = 69952) <0.5 U/ML CCP [id number] 00:00:00 Test Item Value Reference Range Interpretation Comments CCP IgG (test code = 85194) <0.5 U/ML CCP [id number] 00:00:00 Test Item Value Reference Range Interpretation Comments CCP IgG (test code = 88654) <0.5 U/ML COMPREHENSIVE METABOLIC [id number] 00:00:00 Test Item Value Reference Range Interpretation Comments GLUCOSE (test code = 2217) 88 MG/DL BUN (test code = 2208) 14 MG/DL CREATININE (test code = 2214) 0.70 MG/DL eGFR (2020 CKD-EPI) (test 117 ML/MIN/1.73 code = 35516) CALC BUN/CREAT (test code = 20 RATIO [...] A/G RATIO (test code = 1.4 RATIO 223) BILIRUBIN, TOTAL (test code = 0.2 MG/DL 2206) ALKALINE PHOSPHATASE (test 122 U/L code = 2203) AST (test code = 2218) 19 U/L ALT (test code = 2219) 24 U/L COMPREHENSIVE METABOLIC [id number] 00:00:00 Test Item Value Reference Range Interpretation Comments GLUCOSE (test code = 2217) 88 MG/DL BUN (test code = 2208) 14 MG/DL CREATININE (test code = 2214) 0.70 MG/DL eGFR (2020 CKD-EPI) (test 117 ML/MIN/1.73 code = 51405) CALC BUN/CREAT (test code = 20 RATIO [...] ALT (test code = 2219) 24 U/L [id number] 00:00:00 Test Item Value Reference Range Interpretation Comments TSH, THIRD GENERATION (test code 1.670 UIU/ML = 2821) [id number] 00:00:00 Test Item Value Reference Range Interpretation Comments TSH, THIRD GENERATION (test code 1.670 UIU/ML = 2821) [id number] 00:00:00 Test Item Value Reference Range Interpretation Comments TSH, THIRD GENERATION (test code 1.670 UIU/ML = 2821) LIPID [id number] 00:00:00 Test Item Value Reference Range Interpretation Comments CHOLESTEROL (test code = 2210) 132 MG/DL TRIGLYCERIDES (test code = 2232) 105 MG/DL HDL CHOLESTEROL (test code = 2220) 33 MG/DL CALC LDL CHOL (test code = 2237) 80 MG/DL RISK RATIO LDL/HDL (test code = 2.42 RATIO 2238) LIPID [id number] 00:00:00 Test Item Value Reference Range Interpretation Comments CHOLESTEROL (test code = 2210) 132 MG/DL TRIGLYCERIDES (test code = 2232) 105 MG/DL HDL CHOLESTEROL (test code = 2220) 33 MG/DL CALC LDL CHOL (test code = 2237) 80 MG/DL RISK RATIO LDL/HDL (test code = 2.42 RATIO 2238) RHEUMATOID FACTOR, [id number] 00:00:00 Test Item Value Reference Range Interpretation Comments RHEUMATOID FACTOR, QUANT (test code 11 IU/ML = 3502) RHEUMATOID FACTOR, [id number] 00:00:00 Test Item Value Reference Range Interpretation Comments RHEUMATOID FACTOR, QUANT (test code 11 IU/ML = 3502) RHEUMATOID FACTOR, [id number] 00:00:00 Test Item Value Reference Range Interpretation Comments RHEUMATOID FACTOR, QUANT (test code 11 IU/ML = 3502) C-REACTIVE [id number] 00:00:00 Test Item Value Reference Range Interpretation Comments C-REACTIVE PROTEIN (test code = 0.5 MG/DL 3513) C-REACTIVE [id number] 00:00:00 Test Item Value Reference Range Interpretation Comments C-REACTIVE PROTEIN (test code = 0.5 MG/DL 3513) SEDIMENTATION [id number] 00:00:00 Test Item Value Reference Range Interpretation Comments SEDIMENTATION RATE (test code = 23 MM/HOUR 1017) SEDIMENTATION [id number] 00:00:00 Test Item Value Reference Range Interpretation Comments SEDIMENTATION RATE (test code = 23 MM/HOUR 1017) CCP [id number] 00:00:00 Test Item Value Reference Range Interpretation Comments CCP IgG (test code = 93525) <0.5 U/ML CCP [id number] 00:00:00 Test Item Value Reference Range Interpretation Comments CCP IgG (test code = 67861) <0.5 U/ML CCP [id number] 00:00:00 Test Item Value Reference Range Interpretation Comments CCP IgG (test code = 83507) <0.5 U/ML COMPREHENSIVE METABOLIC [id number] 00:00:00 Test Item Value Reference Range Interpretation Comments GLUCOSE (test code = 2217) 88 MG/DL BUN (test code = 2208) 14 MG/DL CREATININE (test code = 2214) 0.70 MG/DL eGFR (2020 CKD-EPI) (test 117 ML/MIN/1.73 code = 25974) CALC BUN/CREAT (test code = 20 RATIO [...] code = 2219) 24 U/L COMPREHENSIVE METABOLIC [id number] 00:00:00 Test Item Value Reference Range Interpretation Comments GLUCOSE (test code = 2217) 88 MG/DL BUN (test code = 2208) 14 MG/DL CREATININE (test code = 2214) 0.70 MG/DL eGFR (2020 CKD-EPI) (test 117 ML/MIN/1.73 code = 05983) CALC BUN/CREAT (test code = 20 RATIO [...] ALT (test code = 2219) 24 U/L [id number] 00:00:00 Test Item Value Reference Range Interpretation Comments TSH, THIRD GENERATION (test code 1.670 UIU/ML = 2821) [id number] 00:00:00 Test Item Value Reference Range Interpretation Comments TSH, THIRD GENERATION (test code 1.670 UIU/ML = 2821) [id number] 00:00:00 Test Item Value Reference Range Interpretation Comments TSH, THIRD GENERATION (test code 1.670 UIU/ML = 2821) LIPID [id number] 00:00:00 Test Item Value Reference Range Interpretation Comments CHOLESTEROL (test code = 2210) 132 MG/DL TRIGLYCERIDES (test code = 2232) 105 MG/DL HDL CHOLESTEROL (test code = 2220) 33 MG/DL CALC LDL CHOL (test code = 2237) 80 MG/DL RISK RATIO LDL/HDL (test code = 2.42 RATIO 2238) LIPID [id number] 00:00:00 Test Item Value Reference Range Interpretation Comments CHOLESTEROL (test code = 2210) 132 MG/DL TRIGLYCERIDES (test code = 2232) 105 MG/DL HDL CHOLESTEROL (test code = 2220) 33 MG/DL CALC LDL CHOL (test code = 2237) 80 MG/DL RISK RATIO LDL/HDL (test code = 2.42 RATIO 2238) DRUGS OF ABUSE SCREEN [id number] 22:06:00 Test Item Value Reference Range Interpretation [...] (test code = TRICYCU) Neg NEGATIVE HCG [id number] 22:02:00 Test Item Value Reference Range Interpretation [...] after 48 hours toconfirm . URINALYSIS DIPSTICK [id number] 21:55:00 Test Item Value Reference Range Interpretation [...] code = LEUU) - XR CHEST 1 [id number] 21:55:00 [facility] : 1990 Sex: FPatient Name: CAROLINE DURAND Unit No: [id number] EXAMS: CPT: [id number] XR CHEST 1 V 47234 PA CHEST, 03/26/2022. Comparison: None. CLINICAL: Chest [...] (2157) BATCH NO: N/A Name: CAROLINE DURAND [facility] Emergency Dept Phys: [place] [id number] [facility] : 1990 Age: 31 Sex: [place] [id number] Loc: DOUG Exam Date: 03/26/2022 Status: PRE ER PH: [phone] FAX: PAGE 1 Signed ReportCBC W/AUTO [id number] 21:50:00 Test Item Value Reference Range Interpretation [...] 0.9 10e3/mm3 0.2-1.1 N MX#) TROPONIN I [id number] 21:49:00 Test Item Value Reference Range Interpretation [...] if similar methodology is used. CHEMISTRY 8 [id number] 21:48:00 Test Item Value Reference Range Interpretation [...]
[2023-01-08 22:38] LABS: Urine Blood Trace-intact (Negative); Urine Glucose Negative (Negative); Urine Protein Negative (Negative); Urine Specific Gravity 1.025 (1.005-1.030); Urine pH 7.5 (5.0-7.0)
[2023-01-08 22:51] LABS: Absolute Lymphocytes (CBC) 2.8 K/uL (0.7-4.9); Hematocrit 36.3 % (36.0-45.0); MCV 94.7 fL (80-100); MPV 8.2 fL (7.6-11.3); RBC Red Blood Cell Count 3.83 M/uL (3.86-4.86)
[2023-01-08 23:02] LABS: Urine Bacteria 20-50 /HPF (<20); Urine Mucus Slight /HPF (None Seen); Urine RBC None Seen /HPF (None Seen)
[2023-01-08 23:05] LABS: Albumin 3.7 g/dL (3.4-5.0); Bilirubin Total 0.3 mg/dL (0.2-1.0); Potassium 3.4 mmol/L (3.5-5.1); Protein, Total 7.3 g/dL (6.4-8.2)
[2023-01-09] MEDS ORDERED: NA CHLORIDE 0.9% 1,000 ML ONE (00:04)
[2023-01-09] MEDS ORDERED: ONDANSETRON 4 MG/2 ML VIAL ONE (00:04)
[2023-01-09] MEDS ORDERED: FENTANYL CITR 100 MCG/2 ML ONE (00:04)
[2023-01-09] MEDS ORDERED: NITROFURAN MACRO 100 MG CAP PO ONE (00:55)
[2023-01-09 01:20] VITALS: TEMP 98.3; O2SAT 99
[2023-01-09 01:26] VITALS: BP 119/82
--- NOTE | 2023-01-09 09:52 | RAD REPORT ---
EXAM DESCRIPTION: CT Abdomen and Pelvis With Intravenous Contrast CLINICAL HISTORY: The patient is 32 years old and is Female; post surgical pain TECHNIQUE: Axial computed tomography images of the abdomen and pelvis with intravenous contrast. S agittal and coronal reformatted images were created and reviewed. This CT exam was performed using one or more of the following dose reduction techniques: automated exposure control, adjustment of t he mA and/or kV according to patient size, and/or use of iterative reconstruction technique. COMPARISON: No relevant prior studies available. FINDINGS: Lung bases: Unremarkable. No mass. No consolidation. ABDOMEN: Liver: Unremarkable. No mass. Gallbladder and bile ducts: Gallbladder is contracted. No calcified stones. No ductal dilation. Pancreas: Unremarkable. No mass. No ductal dilation. Spleen: Mild splenomegaly. Adrenals: Unremarkable. No mass. Kidneys and ureters: Simple cysts in the right kidney. ACR White Paper guidelines (Debra, et al. JACR 2018; 15(2):264-273) suggest no follow-up is necessary. No hydronephrosis. Stomach and bowel: Unremarkable. No obstruction. No mucosal thickening. PELVIS: Appendix: No findings to suggest acute appendicitis. Bladder: Unremarkable. Reproductive: Unremarkable as visualized. ABDOMEN and PELVIS: Intraperitoneal space: Unremarkable. No free air. No significant fluid collection. Bones/joints: No acute fracture. No dislocation. Soft tissues: Mild periumbilical subcutaneous stranding. Vasculature: Unremarkable. No abdominal aortic aneurysm. Lymph nodes: Unremarkable. No enlarged lymph nodes. Other findings: Postsurgical changes in the right lower quadrant. IMPRESSION: No acute finding in the abdomen/pelvis. Electronically signed by: Jayson Ghosh MD 10/21/2022 12:28 AM NUTRITIONIST [facility] Due to temporary technical issues with the PACS/Fluency reporting system, reports are being signed by the in house radiologists without review as a courtesy to insure prompt reporting. The interpreting radiologist is fully responsible for the content of the report.
--- NOTE | 2023-01-25 14:10 | EDPHYS ---
Physician Documentation [facility] Name: Erica Tucker Age: 32 yrs Sex: Female : 1990 Arrival Date: 01/08/2023 Time: 21:58 Bed 10 Private MD: ED Physician Santos Batista HPI: 01/08 23:10 This 32 yrs old Female presents to ER via Ambulatory with complaints of Possible Kidney kb Stone. 23:10 The patient complains of pain in the right flank. The pain radiates to the right lower kb quadrant. Onset: The symptoms/episode began/occurred 2 day(s) ago. Modifying factors: The symptoms are alleviated by nothing. the symptoms are aggravated by nothing. Associated signs and symptoms: Pertinent positives: nausea, vomiting. Severity of pain: At its worst the pain was moderate in the emergency department the pain is unchanged. The patient has experienced similar episodes in the past. The patient has not recently seen a physician. 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 - Social history:: Smoking status: Patient uses nicotine gum. ROS: 23:09 Constitutional: Negative for fever, chills, and weight loss. kb 23:09 Back: Positive for flank pain, on the right. 23:09 All other systems are negative. Exam: 23:09 Constitutional: This is a well developed, well nourished patient who is awake, alert, kb and in no acute distress. Head/Face: Normocephalic, atraumatic. ENT: Moist Mucous membranes Cardiovascular: Regular rate and rhythm with a normal S1 and S2. No gallops, murmurs, or rubs. No pulse deficits. Respiratory: Respirations even and unlabored. No increased work of breathing. Talking in full sentences Abdomen/GI: Soft, non-tender. No distention Skin: Warm, dry with normal turgor. Normal color. MS/ Extremity: Pulses equal, no cyanosis. Neurovascular intact. Full, normal range of motion. Neuro: Awake and alert, GCS 15, oriented to person, place, time, and situation. Moves all extremities. Normal gait. 23:09 Back: CVA tenderness, that is mild, is noted on the right. Vital Signs: 22:04 BP 103 / 76; Pulse 100; Resp 17; Temp 98.3(O); Pulse Ox 99% ; Weight 122.47 kg (R); ll3 Height 5 ft. 7 in. ; Pain 8/10; 01/09 00:58 BP 119 / 82; Pulse 82; Resp 18 S; Temp 98.3(O); Pulse Ox 99% on R/A; aa9 01/08 22:04 Body Mass Index 42.29 (122.47 kg, 170.18 cm) ll3 01/08 22:04 Pain Scale: Adult ll3 MDM: 01/08 22:06 Patient medically screened. kb 23:10 Differential diagnosis: nephrolithiasis, pyelonephritis, UTI. Data reviewed: vital kb signs, nurses notes. ED course: Patient is a 32-year-old female who presents for right flank pain that radiates to right groin that started 2 days ago. Denies urinary symptoms. Patient has a history of kidney stones. On exam patient has mild right CVA tenderness. No abdominal tenderness. Serum labs, urinalysis and CT stone ordered.. 01/09 00:40 Counseling: I had a detailed discussion with the patient and/or guardian regarding: the kb historical points, exam findings, and any diagnostic results supporting the discharge/admit diagnosis, lab results, radiology results, the need for outpatient follow up, a family practitioner, to return to the emergency department if symptoms worsen or persist or if there are any questions or concerns that arise at home. 01/08 22:06 Order name: CBC with Diff; Complete Time: 22:54 kb 01/08 22:06 Order name: CMP; Complete Time: 23:09 kb 01/08 22:06 Order name: Lipase; Complete Time: 23:09 kb 01/08 22:06 Order name: Urine Microscopic Only; Complete Time: 23:05 kb 01/08 22:38 Order name: Urine Dipstick-Ancillary; Complete Time: 22:38 EDMS 01/08 22:40 Order name: Urine --Ancillary (enter results); Complete Time: 23:40 rv1 01/08 22:23 Order name: CT Stone Protocol kb 01/08 22:06 Order name: IV Saline Lock; Complete Time: 22:37 kb 01/08 22:06 Order name: Labs collected and sent; Complete Time: 22:37 kb 01/08 22:06 Order name: Urine Dipstick-Ancillary (obtain specimen); Complete Time: 22:37 kb 01/08 22:06 Order name: Urine Test (obtain specimen); Complete Time: 22:37 kb Administered Medications: 01/08 22:11 CANCELLED (Physician Discretion): morphine IVP or IV 4 mg IVP once over 4 mins kb 01/09 00:05 Drug: NS 0.9% IV 1000 ml Route: IV; Rate: 1000 ml; Site: left antecubital; aa9 01:00 Follow up: IV Status: Completed infusion; IV Intake: 300ml aa9 01:00 Follow up: Response: No adverse reaction aa9 00:10 Drug: fentaNYL (PF) IVP 25 mcg Route: IVP; Site: left antecubital; aa9 00:58 Follow up: Response: No adverse reaction aa9 00:11 Drug: Ondansetron IVP 4 mg Route: IVP; Site: left antecubital; aa9 00:58 Follow up: Response: No adverse reaction aa9 00:58 Drug: Macrobid PO 100 mg Route: PO; aa9 01:00 Follow up: Response: No adverse reaction aa9 Disposition Summary: 01/09/23 00:41 Discharge Ordered Location: Home kb Condition: Stable kb Diagnosis - UTI/ Urinary tract infection, site not specified kb Followup: kb - With: Emergency Department - When: As needed - Reason: Worsening of condition Followup: kb - With: Private Physician - When: 2 - 3 days - Reason: Recheck today's complaints, Continuance of care, Re-evaluation by your physician Discharge Instructions: - Discharge Summary Sheet kb - Urinary Tract Infection, Adult, [id number] kb Forms: - Medication Reconciliation Form kb - Thank You Letter kb - Antibiotic Education kb - Prescription Opioid Use kb Prescriptions: - Macrobid 100 mg Oral Capsule - take 1 capsule by ORAL route every 12 hours for 10 days; 20 capsule; Refills: kb 0, Product Selection Permitted Signatures: Dispatcher [employer] EDMS Jessica Amado, Amee Silver RN RN ll3 Wendy Chambers, FANTASMA RN aa9 Corrections: (The following items were deleted from the chart) 01/08 22:11 22:11 morphine IVP or IV 4 mg IVP once over 4 mins ordered. kb kb 22:38 22:07 [email or web address] ordered. EDMS EDMS
--- NOTE | 2023-01-25 14:10 | ER ---
Nurse's Notes [facility] Name: Erica Tucker Age: 32 yrs Sex: Female : 1990 Arrival Date: 01/08/2023 Time: 21:58 Bed 10 Private MD: Diagnosis: UTI/ Urinary tract infection, site not specified Presentation: 01/08 22:04 Chief complaint: Patient states: C/o right flank pain 8/10 since 01/06/23. Coronavirus ll3 screen: Vaccine status: Patient reports receiving the 2nd dose of the covid vaccine. At this time, the client does not indicate any symptoms associated with coronavirus-19. Ebola Screen: No symptoms or risks identified at this time. Initial Sepsis Screen: Does the patient meet any 2 criteria? No. Patient's initial sepsis screen is negative. Does the patient have a suspected source of infection? No. Patient's initial sepsis screen is negative. Risk Assessment: Do you want to hurt yourself or someone else? Patient reports no desire to harm self or others. Onset of symptoms was January 06, 2023. 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 - Social history:: Smoking status: Patient uses nicotine gum. Screenin/08 00:35 [facility] ED Fall Risk Assessment (Adult) History of falling in the last 3 months, aa9 including since admission No falls in past 3 months (0 pts) Confusion or Disorientation No (0 pts) Intoxicated or Sedated No (0 pts) Impaired Gait No (0 pts) Mobility Assist Device Used No (0 pt) Altered Elimination No (0 pt) Score/Fall Risk Level 0 - 2 = Low Risk Oriented to surroundings, Educated pt \T\ family on fall prevention, incl call for assistance when getting out of bed, Assessed \T\ reinforced patient's understanding of fall precautions. Abuse screen: Denies threats or abuse. Denies injuries from another. Nutritional screening: No deficits noted. Tuberculosis screening: No symptoms or risk factors identified. Assessment: 01/08 23:50 General: Appears in no apparent distress. comfortable, obese, Behavior is calm, aa9 cooperative. 23:50 Pain: Complains of pain in low back area, left low back and right low back. Neuro: aa9 Level of Consciousness is awake, alert, obeys commands, Oriented to person, place, time, situation. Respiratory: Airway is patent Respiratory effort is even, unlabored. GI: Reports lower abdominal pain. Derm: Skin is intact, is healthy with good turgor. 01/09 00:58 Reassessment: pt offered sandwich and fruit cup with medication, pt refused, educated aa9 on possible stomach irritation due to medication, pt understand. 00:59 Reassessment: Patient appears in no apparent distress at this time. Patient is alert, aa9 oriented x 3, equal unlabored respirations, skin warm/dry/pink. pt understands discharge instructions, denies concerns. 00:59 GI: Bowel sounds present X 4 quads. Abd is soft and non tender X 4 quads. aa9 Vital Signs: 01/08 22:04 BP 103 / 76; Pulse 100; Resp 17; Temp 98.3(O); Pulse Ox 99% ; Weight 122.47 kg (R); ll3 Height 5 ft. 7 in. ; Pain 8/10; 01/09 00:58 BP 119 / 82; Pulse 82; Resp 18 S; Temp 98.3(O); Pulse Ox 99% on R/A; aa9 01/08 22:04 Body Mass Index 42.29 (122.47 kg, 170.18 cm) ll3 01/08 22:04 Pain Scale: Adult ll3 ED Course: 01/08 21:58 Patient arrived in ED. ja2 22:05 [facility]C [facility] kb 22:05 Santos Batista MD is Attending Physician. kb 22:07 Triage completed. ll3 22:07 Arm band placed on. ll3 22:37 CMP Sent. jb5 22:37 Lipase Sent. jb5 22:37 Urine Microscopic Only Sent. jb5 22:38 Inserted saline lock: 20 gauge in left antecubital area, using aseptic technique. Blood jb5 collected. 23:14 CT Stone Protocol In Process Unspecified. EDLA 01/09 00:35 Patient has correct armband on for positive identification. Bed in low position. Call aa9 light in reach. Warm blanket given. 00:43 No provider procedures requiring assistance completed. aa9 00:59 IV discontinued, intact, bleeding controlled, No redness/swelling at site. Pressure aa9 dressing applied. Administered Medications: 01/08 22:11 CANCELLED (Physician Discretion): morphine IVP or IV 4 mg IVP once over 4 mins shannon 01/09 00:05 Drug: NS 0.9% IV 1000 ml Route: IV; Rate: 1000 ml; Site: left antecubital; aa9 01:00 Follow up: IV Status: Completed infusion; IV Intake: 300ml aa9 01:00 Follow up: Response: No adverse reaction aa9 00:10 Drug: fentaNYL (PF) IVP 25 mcg Route: IVP; Site: left antecubital; aa9 00:58 Follow up: Response: No adverse reaction aa9 00:11 Drug: Ondansetron IVP 4 mg Route: IVP; Site: left antecubital; aa9 00:58 Follow up: Response: No adverse reaction aa9 00:58 Drug: Macrobid PO 100 mg Route: PO; aa9 01:00 Follow up: Response: No adverse reaction aa9 Medication: 00:35 VIS not applicable for this client. aa9 Intake: 01:00 IV: 300ml; Total: 300ml. aa9 Outcome: 00:41 Discharge ordered by . kb 00:58 Discharged to home ambulatory. aa9 00:58 Condition: stable 00:58 Discharge instructions given to patient, Instructed on discharge instructions, follow up and referral plans. medication usage, Demonstrated understanding of instructions, follow-up care, medications, Prescriptions given X 1. 01:00 Patient left the ED. aa9 Signatures: Dispatcher [employer] EDLA Jessica Amado, YUNIORC FOREPART LASTER-CkRebecca Coley jb5 Inga Hernandez2 Amee Villa RN RN ll3 Wendy Chambers RN RN aa9 Corrections: (The following items were deleted from the chart) 01/08 22:38 22:37 [email or web address] drawn and sent. jb5 EDMS
== END 2023-01-09 01:00 | disposition home or self-care (01) ==
LOC: ER 21:55
DX: N39.0 Urinary tract infection, site not specified (principal); Z88.0 Allergy status to penicillin; Z88.6 Allergy status to analgesic agent; Z88.8 Allergy status to other drugs, medicaments and biological substances
CPT/HCPCS: 96361; 85025; 36415; 81025; 83690; 80053; 76377; 74176; 96375; 96374; 99284; J3010; J2405; J7030; 81003; 81015

== ENCOUNTER 2023-04-01 21:15 | Emergency (ER) | payer OTHER ==
--- OUTSIDE RECORDS SUMMARY | 2023-04-01 21:37 | XMS REPORT | Continuity of Care Document ---
:1990 Author Organization [facility] t Address [address] [facility] [address] [place] [address] Care Team Providers Name Role Phone SYSTEM, PCP NOT IN Primary Care Physician Unavailable DORIS PAUL Attending Clinician Unavailable JONATHAN LAMB Attending Clinician Unavailable JONATHAN LAMB Attending Clinician Unavailable Doctor Unassigned, De Pere Attending Clinician Unavailable Doris Stovall MD Attending Clinician Jose BARNES, Tiff Dowd Attending Clinician [facility] Resident Attending Clinician Unamarkie Colvin RN, Laura Attending Clinician Unavailable Donny Noel MD Attending Clinician Rich Newton MD Attending Clinician ROSSY RUANO Attending Clinician Unavailable Rossy Ruano MD Attending Clinician [phone] Oscar PENALOZA Attending Clinician Unavailable Oscar Narvaez [...] Number Effective Date Expiration Date S desean [facility] EXCHANGE [id number] 2022 00:00:00 Problems Condition Condition Condition Status Onset Resolution Last Treating Co mments Source Name Details Category Date Date Treatment Clinician Date Chest pain Chest pain Disease Active 2021-11 M [facility] in adult in adult 12-06 [facility] 00:[facility]: [facility]osp[facility] 00 l Shortness Shortness Disease Active 2021-[address] [facility] [address] of breath of breath 1-14 [facility] s 00:00: [place] [id number] Center Kidney Kidney Disease Active 2020-11 Univers stone stone 2-16 ity of 00:00: [place] 00 Medical Branch Morbid Morbid Disease Active 2020-11 Univers obesity obesity 2-16 ity of 00:00: [place] 00 [facility] Branch Obstructiv Obstructiv Disease Active 2020-11 U nivers e sleep e sleep 2-16 ity of apnea apnea 00:00: [place] 00 Medical Branch Cerebrovas Cerebrovas Disease Active 2019-11 U nivers cular cular 1-05 ity of accident accident 00:00: [place] (CVA) (CVA) 00 Medical Branch Transient Transient Disease Active 2019-11 Uni vers ischemic ischemic 1-05 ity of attack attack 00:00: [place] 00 Medical Branch Hyperlipid Hyperlipid Disease Active 2020-0 U nivers emia emia 2-21 ity of 00:00: [place] 00 Medical Branch Benign Benign Disease Active 2017-11 Univers intracrani intracrani 0-23 it y of al al 00:00: [place] hypertensi hypertensi 00 Me dical on on Branch Hypothyroi Hypothyroi Disease Active 2016-11 U nivers dism dism 2-26 ity of 00:00: [place] Medical Branch Bipolar 1 Bipolar 1 Disease Active 2016-11 Uni vers disorder, disorder, 1-20 [place] depressed [place] Posttrauma Posttrauma Disease Active U nivers tic stress tic stress 3-17 it y of disorder disorder 00:00: [place] 00 Medical Branch Allergies, Adverse Reactions, Alerts Allergy Allergy Status Severity Reaction(s) Onset Inactive Treating Comm ents Source Name Type Date Date Clinician Lactose Propensi Active GI 2021-11 [facility] ty to Intolerance [facility] adverse 00:00: Hospita reaction 00 l s to drug PREDNISO Allergy Active Low Palpitations 2021-[address] [facility] 11[facility] Center Predniso Propensi Active Palpitations 2021-[address] [facility] ty to 11-29 [facility] adverse 00:00: Medical reaction 00 Center s PENICILL DRUG Active Hives 2021-11 Univers IN INGREDI 11-24 ity of 00:00: [place] 00 Medical Branch Penicill Propensi Active Hives [...] 00 Center s NSAIDs - Propensi Active 2022-1 CLASS ty to 1-08 adverse 00:00: reaction 00 to drug Penicill Propensi Active 2021-11 ins - ty to 0-31 CLASS adverse 00:00: reaction 00 to drug Penicill DA Active [facility] ins 03-26 [place] 00:00: Health 00 are [place] prometha DA Active [facility] zine 03-26 [place] 00:00: Health 00 are [place] PREDNISO DRUG Active Palpitations Un eddie NE INGREDI 4-04 ity of 00:00: [place] 00 Medical Branch PROMETHA DRUG Active Other-Cmnt Univ ers ZINE INGREDI 4-04 ity of 00:00: [place] 00 Medical Branch Predniso Drug Active Palpitations Un eddie ne Allergy 4-04 ity of 00:00: [place] 00 Medical Branch Prometha Drug Active Other - See Restless U nivers zine Allergy comments 4-04 legs ity of 00:00: [place] 00 Medical Branch Social History Social Habit Start Date Stop Date Quantity Comments Source Gender identity 2022-10-05 Identifies as [facility] (finding) Sexual orientation [facility] History of Social 2022-10-26 2022-10-[address] function 00:00:00 00:00:00 Hospital Exposure to 2022-09-19 2022-09-[address] [facility] SARS-CoV-2 (event) 00:00:00 01:26:00 Medica l Center Alcohol intake 2022-09-29 2022-09-29 Ex-drinker [facility] 00:[facility]00 [facility]:00 (finding) [facility] Center Tobacco use and 2022-09-17 2022-09-17 Smokeless [address] [facility] exposure 00:00[facility]00 00:00:00 non-user [facility] Center History of tobacco 2020-09-[address] [facility] use 00:00[facility] Sex Assigned [facility] [birth year] [facility] Smoking Status Start Date Stop Date Source [facility] consumption unknown Ex-smoker 2022-09-17 00:00:00 2022-09-[address] [facility] 00:[facility] Center Medications Ordered Filled Start Stop Current Ordering Indication Dosage Frequency Signature Comments Components Source Medication Medication Date Date Medication? Clinician (SIG) Name Name PANTOPRAZOL 2022-0 Yes [id number] TAKE ONE Univers E 40 mg EC 2-16 (1) TABLET ity of tablet 00:00: BY MOUTH [place] 00 IN THE Medical MORNING. Branch PANTOPRAZOL 2022-0 Yes [id number] TAKE ONE Univers E 40 mg EC 2-16 (1) TABLET ity of tablet 00:00: BY MOUTH [place] IN THE Medical MORNING. Branch Dose 2021- No Unknown 2-13 00:00: 00 TAKE 1 2021- No TABLET BY 2-13 MOUTH EVERY 00:00: 24 HOURS 00 FOR 7 DAYS Dose 2021- No Unknown 2-13 00:00: 00 GABAPENTIN 2021- [...] TABLET BY MOUTH AT DINNER TAKE ONE 2022-1 No (1) 2-13 TABLET(S) 00:00: BY MOUTH 00 TWICE A DAY. Dose 2021-11 No Unknown 2-13 00:00: 00 Dose 2021-11 No Unknown 2-13 00:00: 00 TAKE ONE 2021-11 No (1) 2-13 TABLET(S) 00:00: BY MOUTH IN 00 THE MORNING AND TWO (2) TABLETS AT BEDTIME. TAKE 1 2021-11 No TABLET BY 2-13 MOUTH EVERY 00:00: DAY 00 TAKE 1 TAB 2021-11 No Q12H X 5 2-13 DAYS 00:00: 00 AZITHROMYCI 2021-11 No N 250MG 2-13 TABLETS 00:00: 6-HANNAH 00 TAKE 1 2021-11 No TABLET BY 2-13 MOUTH TWICE 00:00: DAILY 00 Dose 2021-11 No Unknown 2-13 00:00: 00 FUROSEMIDE 2021-11 No 20 MG TABS 2-13 00:00: 00 TAKE 1 2021-11 No TABLET BY 2-13 MOUTH EVERY 00:00: NIGHT AT 00 BEDTIME FOR 10 DAYS NEEDED Dose 2021-11 No Unknown 2-13 00:00: 00 Dose 2021-11 No Unknown 2-13 00:00: 00 TAKE 1 2021-11 No CAPSULE BY 2-13 MOUTH EVERY 00:00: 6 HOURS 00 NEEDED Dose 2021-11 No Unknown 2-13 00:00: 00 TAKE 1 2021-11 No TABLET AT 2-13 BEDTIME. 00:00: 00 TAKE 1 2021-11 No TABLET BY 2-13 MOUTH DAILY 00:00: NEEDED 00 FOR MIGRAINE HEADACHE. MAY REPEAT DOSE AFTER 2 HOURS UP TO A. MAXIMUM OF 200 MG IN 24 HOURS Dose 2021-11 No Unknown 2-13 00:00: 00 FOLLOW 2021-11 No PACKAGE 2-13 DIRECTIONS 00:00: 00 TAKE 1 2021-11 No TABLET BY 2-13 MOUTH EVERY 00:00: NIGHT AT 00 BEDTIME TAKE 1 2021-11 No TABLET BY 2-13 MOUTH EVERY 00:00: 6 HOURS FOR 00 5 DAYS NEEDED FOR PAIN Dose 2021-11 No Unknown 2-13 00:00: 00 Dose 2021-11 No Unknown 2-13 00:00: 00 ATORVASTATI 2021-11 No N CALCIUM 2-13 20 MG TABS 00:00: 00 TAKE 1 2021-11 No TABLET BY 2-13 MOUTH EVERY 00:00: 6 HOURS 00 NEEDED MUSCLE SPASMS TAKE 1 2021-11 No TABLET BY 2-13 MOUTH THREE 00:00: TIMES DAILY 00 Dose 2021- No Unknown 2-13 00:00: 00 Dose 2021-11 No Unknown 2-13 00:00: 00 TAKE 1 2021-11 No TABLET BY 2-13 MOUTH THREE 00:00: TIMES DAILY 00 NEEDED Dose 2021- No Unknown 2-13 00:00: 00 Dose 2021- No Unknown 2-13 00:00: 00 Dose 2021- No Unknown 2-13 00:00: 00 Dose 2021-11 [...] FOUR 00:00: TIMES DAILY 00 TAKE 2 2021-1 No TABLETS AT 2-13 BEDTIME. 00:00: 00 TAKE 1 2021-11 No TABLET BY 2-13 MOUTH EVERY 00:00: 8 HOURS 00 NEEDED TAKE 1 2021-11 No CAPSULE BY 2-13 MOUTH DAILY [...] l tablet daily. gabapentin 2021-11 Yes 300mg Q.[id number] Take 1 [facility] (NEURONTIN) 2-[id number] 300 mg 17:25: 3D (300 [...] l tablet daily. gabapentin 2021-11 Yes 300mg Q.[id number] Take 1 [facility] (NEURONTIN) 2-[id number] 300 mg 17:25: 3D (300 [...] l tablet daily. gabapentin 2021-11 Yes 300mg Q.[id number] Take 1 [facility] (NEURONTIN) 2-[id number] 300 mg 17:25: 3D (300 [...] l tablet daily. gabapentin 2021-11 Yes 300mg Q.[id number] Take 1 [facility] (NEURONTIN) 2-[id number] 300 mg 17:25: 3D (300 [...] l tablet daily. gabapentin 2021-11 Yes 300mg Q.[id number] Take 1 [facility] (NEURONTIN) 2-[id number] 300 mg 17:25: 3D (300 [...] l tablet daily. gabapentin 2021-11 Yes 300mg Q.[id number] Take 1 [facility] (NEURONTIN) 2-[id number] 300 mg 17:25: 3D (300 [...] l tablet daily. gabapentin 2021-11 Yes 300mg Q.[id number] Take 1 [facility] (NEURONTIN) 2-[id number] 300 mg 17:25: 3D (300 [...] l tablet daily. gabapentin 2021-11 Yes 300mg Q.[id number] Take 1 [facility] (NEURONTIN) 2-[id number] 300 mg 17:25: 3D (300 [...] l tablet daily. gabapentin 2021-11 Yes 300mg Q.[id number] Take 1 [facility] (NEURONTIN) 2-[id number] 300 mg 17:25: 3D (300 [...] l tablet daily. gabapentin 2021-11 Yes 300mg Q.[id number] Take 1 [facility] (NEURONTIN) 2-[id number] 300 mg 17:25: 3D (300 [...] l tablet daily. gabapentin 2021-11 Yes 300mg Q.[id number] Take 1 [facility] (NEURONTIN) 2-[id number] 300 mg 17:25: 3D (300 [...] l tablet daily. gabapentin 2021-11 Yes 300mg Q.[id number] Take 1 [facility] (NEURONTIN) 2-[id number] 300 mg 17:25: 3D (300 [...] l tablet daily. gabapentin 2021-11 Yes 300mg Q.[id number] Take 1 [facility] (NEURONTIN) 2-[id number] 300 mg 17:25: 3D (300 [...] l tablet daily. gabapentin 2021-11 Yes 300mg Q.[id number] Take 1 [facility] (NEURONTIN) 2-[id number] 300 mg 17:25: 3D (300 [...] l tablet daily. gabapentin 2021-11 Yes 300mg Q.[id number] Take 1 [facility] (NEURONTIN) 2-[id number] 300 mg 17:25: 3D (300 [...] l tablet daily. gabapentin 2021-11 Yes 300mg Q.[id number] Take 1 [facility] (NEURONTIN) 2-[id number] 300 mg 17:25: 3D (300 [...] l tablet daily. gabapentin 2021-11 Yes 300mg Q.[id number] Take 1 [facility] (NEURONTIN) 2-[id number] 300 mg 17:25: 3D (300 [...] l tablet daily. gabapentin 2021-11 Yes 300mg Q.[id number] Take 1 [facility] (NEURONTIN) 2-[id number] 300 mg 17:25: 3D (300 [...] l tablet daily. gabapentin 2021-11 Yes 300mg Q.[id number] Take 1 [facility] (NEURONTIN) 2-[id number] 300 mg 17:25: 3D (300 mg Hospita capsule 07 total) by l mouth 3 (three) times a day. acetaZOLAMI 2021-11- No 500mg QD Take 1 [facility] (DIAMOX) 12-[address] 500 mg 17:25: 00:00 (500 mg [facility]osp[facility] capsule 07 :00 total) by l mouth daily. acetaZOLAMI 2021-11- No 500mg QD Take 1 [facility] (DIAMOX) 12-[address] 500 mg 17:25: 00:00 (500 mg [facility]osp[facility] capsule 07 :00 total) by l mouth daily. acetaZOLAMI 2021-11- No 500mg QD Take 1 [facility] (DIAMOX) 12-[address] 500 mg 17:25: 00:00 (500 mg [facility]osp[facility] capsule 07 :00 total) by l mouth daily. acetaZOLAMI 2021-11- No 500mg QD Take 1 [facility] (DIAMOX) 12-[address] 500 mg 17:25: 00:00 (500 mg [facility]ospita capsule 07 :00 total) by l mouth daily. acetaZOLAMI 2021-11 No 500mg QD Take 1 [facility] (DIAMOX) 12-[address] 500 mg 17:25: 00:00 (500 mg Hospita capsule 07 :00 total) by l mouth daily. acetaZOLAMI 2021-11- No 500mg QD Take 1 [facility] (DIAMOX) 12-[address] 500 mg 17:25: 00:00 (500 mg Hospita capsule 07 :00 total) by l mouth daily. acetaZOLAMI 2021-11- No 500mg QD Take 1 [facility] (DIAMOX) 12-[address] 500 mg 17:25: 00:00 (500 mg Hospita capsule 07 :00 total) by l mouth daily. acetaZOLAMI 2021-11- No 500mg QD Take 1 [facility] (DIAMOX) 12-[address] 500 mg 17:25: 00:00 (500 mg Hospita capsule 07 :00 total) by l mouth daily. acetaZOLAMI 2021-11- No 500mg QD Take 1 [facility] (DIAMOX) 12-[address] 500 mg 17:25: 00:00 (500 mg [facility]ospita capsule 07 :00 total) by l mouth daily. acetaZOLAMI 2021-11- No 500mg QD Take 1 [...] :00 total) by l mouth daily. acetaZOLAMI 2021-11- No 500mg QD Take 1 [facility] (DIAMOX) 210-[address] 500 mg 17:25: 00:00 (500 mg Hospita capsule 07 :00 total) by l mouth daily. acetaZOLAMI 2021-11- No 500mg QD Take 1 [facility] (DIAMOX) 210-[address] 500 mg 17:25: 00:00 (500 mg Hospita capsule 07 :00 total) by l mouth daily. acetaZOLAMI 2021-11 No 500mg QD Take 1 [facility] (DIAMOX) 2-03 15- capsule st 500 mg 17:25: 00:00 (500 mg Hospita capsule 07 :00 total) by l mouth daily. acetaZOLAMI 2021-11- No 500mg QD Take 1 [facility] (DIAMOX) 2-03 15- capsule st 500 mg 17:25: 00:00 (500 mg Hospita capsule 07 :00 total) by l mouth daily. methylpredn 2021-11 No 125mg 125 mg, U nivers isolone sod 11-25 Slow IV ity of succ 03:15: 02:40 Push, [place] (SOLU-MEDRO 00 :00 ONCE, 1 Medic al L) dose, On Branch injection Mon 125 mg 09/24/22 at 2115, SCAR predniSONE 2021-11 No [id number] 10mg Take 1 U nivers 10 mg 11-24 tablet by ity of tablet 00:00: 05:59 mouth in [place] 00 :00 the Medical morning Branch and 1 tablet in the evening. Do all this for 4 days. QUEtiapine 2021-11 Yes 200mg QD Take [address] (SEROquel) 1-17 [facility] 200 MG 17:05: mouth Medical tablet 04 nightly. [facility] FLUoxetine 2021-11 Yes 40mg QD Take 40 [...] MG 17:05: mouth Medical tablet 04 nightly. [facility] FLUoxetine 2021-11 Yes 40mg QD Take 40 [...] MG 17:05: mouth Medical tablet 04 nightly. [facility] FLUoxetine 2021-11 Yes 40mg QD Take [address] (PROzac) 40 1-17 by mouth [facility] MG capsule 17:05: daily. Medic al 04 [facility] levothyroxi 2021-11 Yes 50ug Take 50 [facility] [...] MG 17:05: mouth Medical tablet 04 nightly. [facility] FLUoxetine 2021-11 Yes 40mg QD Take 40 [...] MG 17:05: mouth Medical tablet 04 nightly. [facility] FLUoxetine 2021-11 Yes 40mg QD Take [address] (PROzac) 40 1-17 by mouth [facility] MG capsule 17:05: daily. Medic al 04 [facility] levothyroxi 2021-11 Yes 50ug Take 50 [facility] [...] MG 17:05: mouth Medical tablet 04 nightly. [facility] FLUoxetine 2021-11 Yes 40mg QD Take [address] (PROzac) 40 1-17 by mouth [facility] MG capsule 17:05: daily. Medic al 04 [facility] levothyroxi 2021-11 Yes 50ug Take 50 [facility] [...] MG 17:05: mouth Medical tablet 04 nightly. [facility] FLUoxetine 2021-11 Yes 40mg QD Take [address] (PROzac) 40 1-17 by mouth [facility] MG capsule 17:05: daily. Medic al 04 [facility] levothyroxi 2021-11 Yes 50ug Take 50 [facility] [...] MG 17:05: mouth Medical tablet 04 nightly. [facility] FLUoxetine 2021-11 Yes 40mg QD Take [address] (PROzac) 40 1-17 by mouth [facility] MG capsule 17:05: daily. Medic al 04 [facility] levothyroxi 2021-11 Yes 50ug Take 50 [facility] [...] MG 17:05: mouth Medical tablet 04 nightly. [facility] FLUoxetine 2021-11 Yes 40mg QD Take [address] (PROzac) 40 1-17 by mouth [facility] MG capsule 17:05: daily. Medic al 04 [facility] levothyroxi 2021-11 Yes 50ug Take 50 [facility] [...] MG 17:05: mouth Medical tablet 04 nightly. [facility] FLUoxetine 2021-11 Yes 40mg QD Take [address] (PROzac) 40 1-17 by mouth [facility] MG capsule 17:05: daily. Medic al 04 [facility] levothyroxi 2021-11 Yes 50ug Take 50 [facility] [...] MG 17:05: mouth Medical tablet 04 nightly. [facility] FLUoxetine 2021-11 Yes 40mg QD Take [address] (PROzac) 40 1-17 by mouth [facility] MG capsule 17:05: daily. Medic al 04 [facility] levothyroxi 2021-11 Yes 50ug Take 50 [facility] [...] MG 17:05: mouth Medical tablet 04 nightly. [facility] FLUoxetine 2021-11 Yes 40mg QD Take [address] (PROzac) 40 1-17 by mouth [facility] MG capsule 17:05: daily. Medic al 04 [facility] levothyroxi 2021-11 Yes 50ug Take 50 [facility] [...] MG 17:05: mouth Medical tablet 04 nightly. [facility] FLUoxetine 2021-11 Yes 40mg QD Take [address] (PROzac) 40 1-17 by mouth [facility] MG capsule 17:05: daily. Medic al 04 [facility] levothyroxi 2021-11 Yes 50ug Take 50 [facility] [...] MG 17:05: mouth Medical tablet 04 nightly. [facility] FLUoxetine 2021-11 Yes 40mg QD Take 40 [...] MG 17:05: mouth Medical tablet 04 nightly. [facility] FLUoxetine 2021-11 Yes 40mg QD Take 40 [...] MG 17:05: mouth Medical tablet 04 nightly. [facility] FLUoxetine 2021-11 Yes 40mg QD Take 40 [...] 17:05: daily. Medic al 40 MG 04 [facility] tablet atorvastati 2021-11- No 10mg QD Take [address] [facility] (LIPITOR) 11-20-16 by mouth [facility] 10 MG 17:05: 00:00 daily. Medical tablet 04 :00 [facility] lamoTRIgine 2021-11- No 50mg QD Take [address] (LaMICtal) 11-20-16 by mouth [facility] 25 MG 17:05: 00:00 daily. Medical tablet 04 :00 [facility] gabapentin 2021-11- No 300mg Q.[id number] Take [address] (NEURONTIN) 11-20- [id number] [facility] 300 MG 17:05: 00:00 3D mouth 3 Medical capsule 04 :00 (three) Center times daily. apixaban 2021-11 No 5mg QD Take [address] (Eliquis) 5 11-20-16 by mouth [facility] mg Tab 17:05: 00:00 daily. Medical tablet 04 :00 [facility] atorvastati 2021-11 No 10mg QD Take [address] [facility] (LIPITOR) 11-20-16 by mouth [facility] 10 MG 17:05: 00:00 daily. Medical tablet 04 :00 [facility] lamoTRIgine 2021-11 No 50mg QD Take [address] (LaMICtal) 11-20-16 by mouth [facility] 25 MG 17:05: 00:00 daily. Medical tablet 04 :00 [facility] gabapentin 2021-11- No 300mg Q.[id number] Take [address] (NEURONTIN) 11-20-16 [id number] [facility] 300 MG 17:05: 00:00 3D mouth 3 Medical capsule 04 :00 (three) Center times daily. apixaban 2021-11- No 5mg QD Take [address] [address] (Eliquis) 5 11-20-16 by mouth [facility] mg Tab 17:05: 00:00 daily. Medical tablet 04 :00 [facility] atorvastati 2021-11- No 10mg QD Take [address] [facility] (LIPITOR) 11-20-16 by mouth [facility] 10 MG 17:05: 00:00 daily. Medical tablet 04 :00 [facility] lamoTRIgine 2021-11- No 50mg QD Take [address] (LaMICtal) 17 -16 by mouth [facility] 25 MG 17:05: 00:00 daily. Medical tablet 04 :00 [facility] gabapentin 2021-11- No 300mg Q.[id number] Take [address] (NEURONTIN) -17 -16 [id number] [facility] 300 MG 17:05: 00:00 3D mouth 3 Medical capsule 04 :00 (three) Center times daily. apixaban 2021-11- No 5mg QD Take [address] [address] (Eliquis) 5 -20 09-16 by mouth [facility] mg Tab 17:05: 00:00 daily. Medical tablet 04 :00 [facility] atorvastati 2021-11- No 10mg QD Take [address] [facility] (LIPITOR) 11-20-16 by mouth [facility] 10 MG 17:05: 00:00 daily. Medical tablet 04 :00 [facility] lamoTRIgine 2021-11- No 50mg QD Take [address] (LaMICtal) 11-20-16 by mouth [facility] 25 MG 17:05: 00:00 daily. Medical tablet 04 :00 [facility] gabapentin 2021-11- No 300mg Q.[id number] Take [address] (NEURONTIN) 11-20-16 [id number] [facility] 300 MG 17:05: 00:00 3D mouth 3 Medical capsule 04 :00 (three) Center times daily. apixaban 2021-11- No 5mg QD Take [address] [facility] [address] (Eliquis) 5 -17 -16 by mouth [facility] mg Tab 17:05: 00:00 daily. Medical tablet 04 :00 [facility] atorvastati 2021-11- No 10mg QD Take [address] [facility] [facility] (LIPITOR) 11-20-16 by mouth [facility] 10 MG 17:05: 00:00 daily. Medical tablet 04 :00 [facility] lamoTRIgine 2021-11- No 50mg QD Take [address] (LaMICtal) 17 -16 by mouth [facility] 25 MG 17:05: 00:00 daily. Medical tablet 04 :00 [facility] gabapentin 2021-11- No 300mg Q.[id number] Take [address] (NEURONTIN) -17 -16 [id number] [facility] 300 MG 17:05: 00:00 3D mouth 3 Medical capsule 04 :00 (three) Center times daily. apixaban 2021-11- No 5mg QD Take [address] [facility] [address] (Eliquis) 5 -20 09-16 by mouth [facility] mg Tab 17:05: 00:00 daily. Medical tablet 04 :00 [facility] atorvastati 2021-11- No 10mg QD Take [address] [facility] [facility] (LIPITOR) 11-20-16 by mouth [facility] 10 MG 17:05: 00:00 daily. Medical tablet 04 :00 [facility] lamoTRIgine 2021-11 No 50mg QD Take [address] [facility] (LaMICtal) 11-20-16 by mouth [facility] 25 MG 17:05: 00:00 daily. Medical tablet 04 :00 [facility] gabapentin 2021-11 No 300mg Q.[id number] Take [address] (NEURONTIN) 11-20-16 [id number] [facility] 300 MG 17:05: 00:00 3D mouth 3 Medical capsule 04 :00 (three) Center times daily. apixaban 2021-11- No 5mg QD Take [address] [facility] [address] (Eliquis) 5 -17 -16 by mouth [facility] mg Tab 17:05: 00:00 daily. Medical tablet 04 :00 [facility] atorvastati 2021-11- No 10mg QD Take [address] [facility] [facility] (LIPITOR) 11-20-16 by mouth [facility] 10 MG 17:05: 00:00 daily. Medical tablet 04 :00 [facility] lamoTRIgine 2021-11- No 50mg QD Take [address] [facility] (LaMICtal) 17 -16 by mouth [facility] 25 MG 17:05: 00:00 daily. Medical tablet 04 :00 [facility] gabapentin 2021-11- No 300mg Q.[id number] Take [address] (NEURONTIN) -17 -16 [id number] [facility] 300 MG 17:05: 00:00 3D mouth 3 Medical capsule 04 :00 (three) Center times daily. apixaban 2021-11- No 5mg QD Take [address] [facility] [address] (Eliquis) 5 -20 09-16 by mouth [facility] mg Tab 17:05: 00:00 daily. Medical tablet 04 :00 [facility] atorvastati 2021-11- No 10mg QD Take [address] [facility] [facility] (LIPITOR) 11-20-16 by mouth [facility] 10 MG 17:05: 00:00 daily. Medical tablet 04 :00 [facility] lamoTRIgine 2021-11- No 50mg QD Take [address] [facility] [address] (LaMICtal) 11-20-16 by mouth [facility] 25 MG 17:05: 00:00 daily. Medical tablet 04 :00 [facility] gabapentin 2021-11- No 300mg Q.[id number] Take [address] (NEURONTIN) 11-20-16 [id number] [facility] 300 MG 17:05: 00:00 3D mouth 3 Medical capsule 04 :00 (three) Center times daily. apixaban 2021-11- No 5mg QD Take [address] [facility] [address] (Eliquis) 5 11-20-16 by mouth [facility] mg Tab 17:05: 00:00 daily. Medical tablet 04 :00 [facility] atorvastati 2021-11- No 10mg QD Take [address] [facility] [facility] (LIPITOR) 11-20-16 by mouth [facility] 10 MG 17:05: 00:00 daily. Medical tablet 04 :00 [facility] lamoTRIgine 2021-11- No 50mg QD Take [address] [facility] [address] (LaMICtal) 11-20-16 by mouth [facility] 25 MG 17:05: 00:00 daily. Medical tablet 04 :00 [facility] gabapentin 2021-11- No 300mg Q.[id number] Take [address] (NEURONTIN) -20 09-16 [id number] [facility] 300 MG 17:05: 00:00 3D mouth 3 Medical capsule 04 :00 (three) Center times daily. apixaban 2021-11- No 5mg QD Take [address] [facility] [address] (Eliquis) 5 -20 09-16 by mouth [facility] mg Tab 17:05: 00:00 daily. Medical tablet 04 :00 [facility] atorvastati 2021-11- No 10mg QD Take [address] [facility] [facility] (LIPITOR) 11-20-16 by mouth [facility] 10 MG 17:05: 00:00 daily. Medical tablet 04 :00 [facility] lamoTRIgine 2021-11- No 50mg QD Take [address] [facility] [address] (LaMICtal) 11-20-16 by mouth [facility] 25 MG 17:05: 00:00 daily. Medical tablet 04 :00 [facility] gabapentin 2021-11- No 300mg Q.[id number] Take [address] (NEURONTIN) 11-20-16 [id number] [facility] 300 MG 17:05: 00:00 3D mouth 3 Medical capsule 04 :00 (three) Center times daily. apixaban 2021-11- No 5mg QD Take [address] [facility] [address] (Eliquis) 5 11-20-16 by mouth [facility] mg Tab 17:05: 00:00 daily. Medical tablet 04 :00 [facility] atorvastati 2021-11- No 10mg QD Take [address] [facility] (LIPITOR) 11-20-16 by mouth [facility] 10 MG 17:05: 00:00 daily. Medical tablet 04 :00 [facility] lamoTRIgine 2021-11- No 50mg QD Take [address] [facility] (LaMICtal) 11-20-16 by mouth [facility] 25 MG 17:05: 00:00 daily. Medical tablet 04 :00 [facility] gabapentin 2021-11- No 300mg Q.[id number] Take [address] (NEURONTIN) 11-20-16 [id number] mg [facility] 300 MG 17:05: 00:00 3D mouth 3 Medical capsule 04 :00 (three) Center times daily. apixaban 2021-11- No 5mg QD Take [address] [facility] [address] (Eliquis) 5 11-20-16 by mouth [facility] mg Tab 17:05: 00:00 daily. Medical tablet 04 :00 [facility] atorvastati 2021-11- No 10mg QD Take [address] [facility] (LIPITOR) 1-17 11-16 by mouth [facility] 10 MG 17:05: 00:00 daily. Medical tablet 04 :00 [facility] lamoTRIgine 2021-11- No 50mg QD Take [address] (LaMICtal) 17 -16 by mouth [facility] 25 MG 17:05: 00:00 daily. Medical tablet 04 :00 [facility] gabapentin 2021-11- No 300mg Q.[id number] Take [address] (NEURONTIN) -17 -16 [id number] mg [facility] 300 MG 17:05: 00:00 3D mouth 3 Medical capsule 04 :00 (three) Center times daily. apixaban 2021-11 No 5mg QD Take [address] [facility] (Eliquis) 5 -20 09-16 by mouth [facility] mg Tab 17:05: 00:00 daily. Medical tablet 04 :00 [facility] atorvastati 2021-11- No 10mg QD Take [address] [facility] (LIPITOR) 17 -16 by mouth [facility] 10 MG 17:05: 00:00 daily. Medical tablet 04 :00 [facility] lamoTRIgine 2021-11- No 50mg QD Take [address] [facility] (LaMICtal) 17 -16 by mouth [facility] 25 MG 17:05: 00:00 daily. Medical tablet 04 :00 [facility] gabapentin 2021-11- No 300mg [id number] Take [address] [facility] (NEURONTIN) 17 -16 [id number] mg by [facility] 300 MG 17:05: 00:00 3D mouth 3 Medical capsule 04 :00 (three) Center times daily. apixaban 2021-11- No 5mg QD Take [address] [facility] (Eliquis) 5 -17 11-16 by mouth [facility]hakar es mg Tab 17:05: 00:00 daily. Medical tablet 04 :00 [facility] atorvastati 2021-11- No 10mg QD Take [address] [facility] (LIPITOR) 1-17 11-16 by mouth [facility] 10 MG 17:05: 00:00 daily. Medical tablet 04 :00 [facility] lamoTRIgine 2021-11- No 50mg QD Take [address] [facility] (LaMICtal) -17 -16 by mouth Luke [facility] 25 MG 17:05: 00:00 daily. Medical tablet 04 :00 [facility] gabapentin 2021-11- No 300mg Q.[id number] Take [address] [facility] (NEURONTIN) -17 -16 [id number] mg by [facility] 300 MG 17:05: 00:00 3D mouth 3 Medical capsule 04 :00 (three) Center times daily. apixaban 2021-11- No 5mg QD Take [address] [facility] (Eliquis) 5 -20 09-16 by mouth [facility] mg Tab 17:05: 00:00 daily. Medical tablet 04 :00 [facility] atorvastati 2021-11- No 10mg QD Take [address] [facility] (LIPITOR) 11-20-16 by mouth [facility] 10 MG 17:05: 00:00 daily. Medical tablet 04 :00 [facility] lamoTRIgine 2021-11 No 50mg QD Take [address] [facility] (LaMICtal) 11-20-16 by mouth [facility] 25 MG 17:05: 00:00 daily. Medical tablet 04 :00 [facility] gabapentin 2021-11 No 300mg Q.[id number] Take [address] [facility] (NEURONTIN) 11-20-16 [id number] mg by [facility] 300 MG 17:05: 00:00 3D mouth 3 Medical capsule 04 :00 (three) Center times daily. apixaban 2021-11- No 5mg QD Take [address] [facility] (Eliquis) 5 -17 -16 by mouth [facility] mg Tab 17:05: 00:00 daily. Medical tablet 04 :00 [facility] atorvastati 2021-11- No 10mg QD Take [address] [facility] (LIPITOR) 11-20-16 by mouth [facility] es 10 MG 17:05: 00:00 daily. Medical tablet 04 :00 [facility] lamoTRIgine 2021-11- No 50mg QD Take [address] [facility] (LaMICtal) 17 -16 by mouth [facility] 25 MG 17:05: 00:00 daily. Medical tablet 04 :00 Center gabapentin 2021-11 No 300mg Q.[id number] Take [address] [facility] (NEURONTIN) 17 -16 [id number] mg by [facility] 300 MG 17:05: 00:00 3D mouth 3 Medical capsule 04 :00 (three) Center times daily. apixaban 2021-11 No 5mg QD Take [address] [facility] (Eliquis) 5 11-2016 by mouth [facility] mg Tab 17:05: 00:00 daily. Medical tablet 04 :00 Center atorvastati 2021-11- No 20mg QD Take 1 [...] QD Take [address] [facility] (LIPITOR) 16 -16 tablet (20 L ukes 20 MG [...] 300mg QD Take [address] [facility] (NEURONTIN) -19 09-16 capsule Luke [facility] 300 MG 00:00: 23:59 (300 mg Medical capsule 00 :00 total) by Center mouth nightly. atorvastati 2021-11 No 20mg QD Take [address] [facility] (LIPITOR) -19 09-16 tablet (20 L ukes 20 MG 00:00: 23:59 mg total) Medica l tablet 00 :00 by mouth Center nightly. gabapentin 2021-11 No 300mg QD Take [address] [facility] (NEURONTIN) -19 09-16 capsule Luke [facility] 300 MG 00:00: 23:59 [...] (two) times daily for 30 days. apixaban 2021-11 No 5mg Q.5D Take [address] [facility] (Eliquis) 5 - 12-16 tablet (5 Nathalie kes mg Tab 00:00: 23:59 mg total) Medic al tablet 00 :00 by mouth 2 Center (two) times daily for 30 days. furosemide 2021-11- No 20mg QD Take [address] [facility] (LASIX) 20 -16 11-21 tablet (20 Nathalie kes MG tablet [...] QD Take [address] [facility] (LASIX) 20 -16 11-21 tablet (20 Nathalie kes MG tablet [...] mouth. ity of tablet 12:00: 00:00 [place] 31 :00 Medical Branch levothyroxi 2021- No .05ug Take 0.05 [facility] 50 mcg 8-17 08-17 mcg by ity of tablet 12:00: 00:00 mouth [place] 31 :00 every Medical morning. Branch QUEtiapine Yes [id number] TAKE ONE [facility] 50 mg 8-17 (1) ity of tablet 00:00: TABLET(S) [place] 00 BY MOUTH Medical IN THE Branch MORNING AND 2 TABLETS AT BEDTIME. divalproex Yes [id number] 250mg Take 1 [facility] 250 mg EC 8-17 tablet by ity o f tablet 00:00: mouth in [place] 00 the Medical morning Branch and 1 tablet in the evening. levothyroxi Yes [id number] 50ug Take 1 [facility] ne 50 mcg 8-17 tablet by ity o f tablet 00:00: mouth [place] 00 every Medical morning. Branch hydrOXYzine Yes [id number] 50mg Take 1 [facility] 50 mg 8-17 tablet by ity of tablet 00:00: mouth 3 [place] 00 (three) Medical times [place] daily as needed for Anxiety. atorvastati Yes [id number] 20mg Take 1 [facility] n 20 mg 8-17 tablet by ity of tablet 00:00: mouth at [place] 00 bedtime. Medical Branch pantoprazol Yes [id number] 40mg Take 1 [facility] e 40 mg EC 8-17 tablet by ity of tablet 00:00: mouth in [place] 00 the Medical morning. Branch FLUoxetine 2021-0 Yes [id number] TAKE 1 U nivers 40 mg 8-17 CAPSULE BY ity of capsule 00:00: MOUTH 00 DAILY IN Medical THE [place] MORNING WITH FOOD gabapentin 0 Yes [id number] 300mg Take 1 [facility] 300 mg 8-17 [id number] capsule by ity o f capsule 00:00: mouth at [place] 00 bedtime. Medical Branch QUEtiapine Yes [id number] TAKE ONE [facility] 50 mg 8-17 (1) ity of tablet 00:00: TABLET(S) 00 BY MOUTH Medical IN THE Branch MORNING AND 2 TABLETS AT BEDTIME. divalproex Yes [id number] 250mg Take 1 [facility] 250 mg EC 8-17 tablet by ity o f tablet 00:00: mouth in [place] the Medical morning Branch and 1 tablet in the evening. levothyroxi Yes [id number] 50ug Take 1 [facility] ne 50 mcg 8-17 tablet by ity o f tablet 00:00: mouth [place] 00 every Medical morning. Branch hydrOXYzine Yes [id number] 50mg Take 1 [facility] 50 mg 8-17 tablet by ity of tablet 00:00: mouth 3 [place] 00 (three) Medical times [place] daily as needed for Anxiety. atorvastati Yes [id number] 20mg Take 1 [facility] n 20 mg 8-17 tablet by ity of tablet 00:00: mouth at [place] 00 bedtime. Medical Branch pantoprazol Yes [id number] 40mg Take 1 Univers e 40 mg EC 8-17 tablet by ity of tablet 00:00: mouth in [place] 00 the Medical morning. Branch FLUoxetine 2021- Yes [id number] TAKE 1 U nivers 40 mg 8-17 CAPSULE BY ity of capsule 00:00: MOUTH [place] 00 DAILY IN Medical THE [place] MORNING WITH FOOD gabapentin 2021-0 Yes [id number] 300mg Take 1 [facility] 300 mg 8-17 [id number] capsule by ity o f capsule 00:00: mouth at [place] 00 bedtime. Medical Branch QUEtiapine 2021-0 Yes [id number] TAKE ONE [facility] 50 mg 8-17 (1) ity of tablet 00:00: TABLET(S) 00 BY MOUTH Medical IN THE Branch MORNING AND 2 TABLETS AT BEDTIME. divalproex 2021-0 Yes [id number] 250mg Take 1 [facility] 250 mg EC 8-17 tablet by ity o f tablet 00:00: mouth in [place] 00 the Medical morning Branch and 1 tablet in the evening. levothyroxi 2021-0 Yes [id number] 50ug Take 1 [facility] ne 50 mcg 8-17 tablet by ity o f tablet 00:00: mouth [place] 00 every Medical morning. Branch hydrOXYzine 2021-0 Yes [id number] 50mg Take 1 [facility] 50 mg 8-17 tablet by ity of tablet 00:00: mouth 3 [place] 00 (three) Medical times [place] daily as needed for Anxiety. atorvastati 2021-0 Yes [id number] 20mg Take 1 [facility] n 20 mg 8-17 tablet by ity of tablet 00:00: mouth at [place] 00 bedtime. [facility] Branch pantoprazol 2021-0 Yes [id number] 40mg Take 1 Univers e 40 mg EC 8-17 tablet by ity of tablet 00:00: mouth in [place] 00 the Medical morning. Branch FLUoxetine 2021-0 Yes [id number] TAKE 1 U nivers 40 mg 8-17 CAPSULE BY ity of capsule 00:00: MOUTH [place] 00 DAILY IN Medical THE Branch MORNING WITH FOOD gabapentin 2021-0 Yes [id number] 300mg Take 1 [facility] 300 mg 8-17 [id number] capsule by ity o f capsule 00:00: mouth at [place] 00 bedtime. [facility] QUEtiapine 2021-0 Yes [id number] TAKE ONE Univers 50 mg 8-17 (1) ity of tablet 00:00: TABLET(S) 00 BY MOUTH Medical IN THE [place] MORNING AND 2 TABLETS AT BEDTIME. divalproex 2021-0 Yes [id number] 250mg Take 1 [facility] 250 mg EC 8-17 tablet by ity o f tablet 00:00: mouth in [place] 00 the Medical morning Branch and 1 tablet in the evening. levothyroxi 2021-0 Yes [id number] 50ug Take 1 [facility] ne 50 mcg 8-17 tablet by ity o f tablet 00:00: mouth [place] 00 every Medical morning. [place] hydrOXYzine 2021-0 Yes [id number] 50mg Take 1 [facility] 50 mg 8-17 tablet by ity of tablet 00:00: mouth 3 (three) Medical times [place] daily as needed for Anxiety. atorvastati 2021-0 Yes [id number] 20mg Take 1 [facility] n 20 mg 8-17 tablet by ity of tablet 00:00: mouth at [place] 00 bedtime. Medical Branch pantoprazol 2021-0 Yes [id number] 40mg Take 1 [facility] e 40 mg EC 8-17 tablet by ity of tablet 00:00: mouth in [place] 00 the Medical morning. Branch FLUoxetine 2021-0 Yes [id number] TAKE 1 U nivers 40 mg 8-17 CAPSULE BY ity of capsule 00:00: MOUTH 00 DAILY IN Medical THE Branch MORNING WITH FOOD gabapentin 2021-0 Yes [id number] 300mg Take 1 [facility] 300 mg 8-17 [id number] capsule by ity o f capsule 00:00: mouth at [place] 00 bedtime. Medical Branch QUEtiapine 2021-0 Yes [id number] TAKE ONE [facility] 50 mg 8-17 (1) ity of tablet 00:00: TABLET(S) 00 BY MOUTH Medical IN THE Branch MORNING AND 2 TABLETS AT BEDTIME. divalproex 0 Yes [id number] 250mg Take 1 [facility] 250 mg EC 8-17 tablet by ity o f tablet 00:00: mouth in [place] 00 the Medical morning Branch and 1 tablet in the evening. levothyroxi 2021-0 Yes [id number] 50ug Take 1 [facility] ne 50 mcg 8-17 tablet by ity o f tablet 00:00: mouth [place] 00 every Medical morning. Branch hydrOXYzine 2021-0 Yes [id number] 50mg Take 1 [facility] 50 mg 8-17 tablet by ity of tablet 00:00: mouth 3 00 (three) Medical [facility] daily as needed for Anxiety. atorvastati 2021-0 Yes [id number] 20mg Take 1 [facility] n 20 mg 8-17 tablet by ity of tablet 00:00: mouth at [place] 00 bedtime. Medical Branch pantoprazol 2021-0 Yes [id number] 40mg Take 1 Univers e 40 mg EC 8-17 tablet by ity of tablet 00:00: mouth in [place] 00 the Medical morning. Branch FLUoxetine 2021-0 Yes [id number] TAKE 1 U nivers 40 mg 8-17 CAPSULE BY ity of capsule 00:00: MOUTH 00 DAILY IN Medical THE [place] MORNING WITH FOOD gabapentin 2021-0 Yes [id number] 300mg Take 1 [facility] 300 mg 8-17 [id number] capsule by ity o f capsule 00:00: mouth at [place] 00 bedtime. Medical Branch QUEtiapine 2021-0 Yes [id number] TAKE ONE [facility] 50 mg 8-17 (1) ity of tablet 00:00: TABLET(S) 00 BY MOUTH Medical IN THE [place] MORNING AND 2 TABLETS AT BEDTIME. divalproex 2021-0 Yes [id number] 250mg Take 1 [facility] 250 mg EC 8-17 tablet by ity o f tablet 00:00: mouth in 00 the Medical morning Branch and 1 tablet in the evening. levothyroxi 2021-0 Yes [id number] 50ug Take 1 [facility] ne 50 mcg 8-17 tablet by ity o f tablet 00:00: mouth 00 every Medical morning. Branch hydrOXYzine 2021-0 Yes [id number] 50mg Take 1 [facility] 50 mg 8-17 tablet by ity of tablet 00:00: mouth 3 00 (three) Medical times [place] daily as needed for Anxiety. atorvastati 2021-0 Yes [id number] 20mg Take 1 [facility] n 20 mg 8-17 tablet by ity of tablet 00:00: mouth at [place] 00 bedtime. Medical Branch FLUoxetine 2021-0 Yes [id number] TAKE 1 U nivers 40 mg 8-17 CAPSULE BY ity of capsule 00:00: MOUTH DAILY IN [facility] THE [place] MORNING WITH FOOD gabapentin 2021-0 Yes [id number] 300mg Take 1 Univers 300 mg 8-17 [id number] capsule by ity o f capsule 00:00: mouth at [place] 00 bedtime. Medical Branch QUEtiapine 2021-0 Yes [id number] TAKE ONE [facility] 50 mg 8-17 (1) ity of tablet 00:00: TABLET(S) 00 BY MOUTH Medical IN THE [place] MORNING AND 2 TABLETS AT BEDTIME. divalproex 2021-0 Yes [id number] 250mg Take 1 [facility] 250 mg EC 8-17 tablet by ity o f tablet 00:00: mouth in [place] 00 the Medical morning Branch and 1 tablet in the evening. levothyroxi 2021-0 Yes [id number] 50ug Take 1 [facility] ne 50 mcg 8-17 tablet by ity o f tablet 00:00: mouth [place] 00 every Medical morning. Branch hydrOXYzine 2021-0 Yes [id number] 50mg Take 1 [facility] 50 mg 8-17 tablet by ity of tablet 00:00: mouth 3 (three) Medical times [place] daily as needed for Anxiety. atorvastati 2021-0 Yes [id number] 20mg Take 1 [facility] n 20 mg 8-17 tablet by ity of tablet 00:00: mouth at [place] 00 bedtime. Medical Branch FLUoxetine 2021-0 Yes [id number] TAKE 1 U nivers 40 mg 8-17 CAPSULE BY ity of capsule 00:00: MOUTH [place] 00 DAILY IN Medical THE Branch MORNING WITH FOOD gabapentin 2021-0 Yes [id number] 300mg Take 1 [facility] 300 mg 8-17 [id number] capsule by ity o f capsule 00:00: mouth at [place] 00 bedtime. Medical Branch QUEtiapine 2021-0 Yes [id number] TAKE ONE [facility] 50 mg 8-17 (1) ity of tablet 00:00: TABLET(S) [place] 00 BY MOUTH Medical IN THE Branch MORNING AND 2 TABLETS AT BEDTIME. divalproex 2021-0 Yes [id number] 250mg Take 1 [facility] 250 mg EC 8-17 tablet by ity o f tablet 00:00: mouth in [place] 00 the Medical morning Branch and 1 tablet in the evening. levothyroxi 2021-0 Yes [id number] 50ug Take 1 [facility] ne 50 mcg 8-17 tablet by ity o f tablet 00:00: mouth [place] 00 every Medical morning. Branch hydrOXYzine 2021-0 Yes [id number] 50mg Take 1 [facility] 50 mg 8-17 tablet by ity of tablet 00:00: mouth 3 [place] (three) [facility] times [place] daily as needed for Anxiety. atorvastati 2021-0 Yes [id number] 20mg Take 1 [facility] n 20 mg 8-17 tablet by ity of tablet 00:00: mouth at [place] 00 bedtime. Medical Branch pantoprazol 2021-0 Yes [id number] 40mg Take 1 [facility] e 40 mg EC 8-17 tablet by ity of tablet 00:00: mouth in [place] 00 the Medical morning. Branch FLUoxetine 2021-0 Yes [id number] TAKE 1 U nivers 40 mg 8-17 CAPSULE BY ity of capsule 00:00: MOUTH [place] 00 DAILY IN Medical THE Branch MORNING WITH FOOD gabapentin Yes [id number] 300mg Take 1 [facility] 300 mg 8 [id number] capsule by ity o f capsule 00:00: mouth at [place] 00 bedtime. Medical Branch pantoprazol 2022- No [id number] 40mg Take 1 Univers e 40 mg EC 817 02-16 tablet by ity of tablet 00:00: 00:00 mouth in [place] 00 :00 the Medical morning. Branch QUEtiapine 2021- No TAKE ONE Un eddie 50 mg 05-21 (1) ity of tablet 00:00: 00:00 TABLET(S) [place] 00 :00 BY MOUTH Medical IN THE Branch MORNING AND 2 TABLETS AT BEDTIME. FLUoxetine 2021- No TAKE 1 Univ ers 40 mg [id number] CAPSULE BY ity of capsule 00:00: 00:00 MOUTH [place] 00 :00 DAILY IN Medical THE Branch MORNING WITH FOOD hydrOXYzine No 50mg Take 50 mg [facility] 50 mg 04-17- by mouth 3 ity of tablet 00:00: 00:00 (three) [place] 00 :00 times Medical daily as Branch needed. divalproex No 250mg Take 250 U nivers 250 mg EC 04-17-17 mg by ity of tablet 00:00: 00:00 mouth in [place] 00 :00 the Medical morning Branch and 250 mg in the evening. pantoprazol 2020-11 No 40mg Take 40 mg Univers e 40 mg EC 217 by mouth. ity of tablet 00:00: 00:00 [place] 00 :00 Medical Branch Vital Signs Vital Name Observation Time Observation Value Comments Source HEIGHT 2022-09-29 01:29:00 170.2 cm WEIGHT 2022-09-29 01:29:00 127.007 kg HEIGHT 2022-09-29 01:29:00 170.2 cm WEIGHT 2022-09-29 01:29:00 127.007 kg Systolic blood 2022-09-25 03:34:00 140 mm[Hg] Univer sity of pressure [facility] Diastolic blood 2022-09-25 03:34:00 83 mm[Hg] Unive rsity of pressure [facility] Heart rate 2022-09-25 03:34:00 90 /min [facility]i ty of [facility] Oxygen saturation in 2022-09-25 03:34:00 98 /min [facility] Arterial blood by [facility] Pulse oximetry Branch Respiratory rate 2022-09-25 02:08:00 18 /min Univ ersity of [facility] Body temperature 2022-09-25 00:13:00 36 [facility] ersity of [facility] Body height 2022-09-25 00:13:00 170.2 cm Universi ty of [facility] Body weight 2022-09-25 00:13:00 129.275 kg [facility]i ty [facility] BMI 2022-09-25 00:13:00 44.64 kg/m2 Universi ty [facility] HEIGHT 2022-09-17 13:50:00 170.2 cm WEIGHT 2022-09-17 13:50:00 127.007 kg HEIGHT 2022-09-17 13:50:00 170.2 cm WEIGHT 2022-09-17 13:50:00 127.007 kg Systolic blood 2022-06-20 16:27:00 132 mm[Hg] Univer sity of pressure [facility] Diastolic blood 2022-06-20 16:27:00 68 mm[Hg] Unive rsity of pressure [facility] Heart rate 2022-06-20 16:27:00 76 /min [facility]i ty of [facility] Body temperature 2022-06-20 16:27:00 36.28 [facility] Respiratory rate 2022-06-20 16:27:00 18 /min Univ ersity of [facility] Body weight 2022-06-20 16:27:00 120.203 kg [facility] BMI 2022-06-20 16:27:00 41.50 kg/m2 [facility] Body height 2022-10-26 08:14:00 170.2 cm [facility] Body weight 2022-10-26 08:14:00 127.007 kg [facility] BMI 2022-10-26 08:14:00 43.85 kg/m2 [facility] Systolic blood 2022-10-26 08:12:39 117 mm[Hg] [facility] pressure Diastolic blood 2022-10-26 08:12:39 91 mm[facility]Hg[facility] Heart rate 2022-10-26 08:12:39 96 /min [facility] Body temperature 2022-10-26 08:12:[address] [facility] Respiratory rate 2022-10-26 08:12:39 17 /min [facility] Oxygen saturation in 2022-10-26 08:12:39 100 /min [facility] Arterial blood by Pulse oximetry BP Systolic 2022-10-16 14:32:00 121 mm[Hg] BP Diastolic 2022-10-16 14:32:00 81 mm[Hg] Weight Measured 2022-10-16 14:32:00 285.40 pounds Height Measured 2022-10-16 14:32:00 67.00 inches Body Temperature 2022-10-16 14:32:00 97.90 degrees Heart Rate 2022-10-16 14:32:00 93.00 /min Respiratory Rate 2022-10-16 14:32:00 17.00 /min Body temperature 2022-10-07 22:24:[address] [facility] Respiratory rate 2022-10-07 22:24:13 17 /min [facility] Systolic blood 2022-10-07 21:50:23 121 mm[Hg] [facility] pressure Diastolic blood 2022-10-07 21:50:23 77 mm[Hg] [facility] pressure Heart rate 2022-10-07 21:50:23 86 /min [facility] Oxygen saturation in 2022-10-07 21:50:23 96 /min [facility] Arterial blood by Pulse oximetry Body height 2022-10-05 21:38:00 170.2 cm [facility] Body weight 2022-10-05 21:38:00 127.007 kg [facility] BMI 2022-10-05 21:38:00 43.85 kg/m2 [facility] Systolic blood 2022-09-29 06:56:00 110 mm[Hg] [facility] Diastolic blood 2022-09-29 06:56:00 82 mm[Hg] [facility] Heart rate 2022-09-29 06:56:00 99 /min [facility] Body temperature 2022-09-29 06:56:00 36.67 [facility] Respiratory rate 2022-09-29 06:56:00 17 /min [facility] Oxygen saturation in 2022-09-29 06:56:00 97 /min [facility] Arterial blood by Medical Ce nter Pulse oximetry Body height 2022-09-29 01:29:00 170.2 cm [facility] Body weight 2022-09-29 01:29:00 127.007 kg [facility] BMI 2022-09-29 01:29:00 43.85 kg/m2 [facility] BP Systolic 2022-09-24 17:07:00 125 mm[Hg] BP Diastolic 2022-09-24 17:07:00 85 mm[Hg] Weight Measured 2022-09-24 17:07:00 287.40 pounds Height Measured 2022-09-24 17:07:00 67.00 inches Body Temperature 2022-09-24 17:07:00 97.60 degrees Heart Rate 2022-09-24 17:07:00 107.00 /min Respiratory Rate 2022-09-24 17:07:00 Heart rate 2022-09-19 09:41:00 89 /min [facility] Systolic blood 2022-09-19 07:56:00 109 mm[Hg] [facility] Diastolic blood 2022-09-19 07:56:00 69 mm[Hg] [facility] Body temperature 2022-09-19 07:56:00 36.78 [facility] Respiratory rate 2022-09-19 07:56:00 18 /min [facility] Oxygen saturation in 2022-09-19 07:56:00 94 /min [facility] Arterial blood by Medical Ce nter Pulse oximetry Body height 2022-09-18 14:12:00 170.2 cm [facility] Body weight 2022-09-17 13:50:00 127.007 kg [facility] BMI 2022-09-17 13:50:00 43.85 kg/m2 [facility] BP Systolic 2022-09-06 15:38:00 126 mm[Hg] BP [...] Time Performing Source Performed Clinician REFERRAL- REQUEST/RESPONSE 2023-03-04 05:01:00 Doctor Unassigned , [facility] URINE CULTURE 2022-10-26 08:56:00 Jose Tiffalejandro Bravo [facility] [place] URINALYSIS SCREEN AND 2022-10-26 08:56:00 [facility] MICROSCOPY, WITH REFLEX TO [place] CULTURE CBC WITH PLATELET AND 2022-10-26 08:53:00 [facility] DIFFERENTIAL [place] COMPREHENSIVE METABOLIC 2022-10-26 08:53:00 [facility] PANEL [place] LIPASE LEVEL 2022-10-26 08:53:00 [facility] T[facility] [place] LACTIC ACID LEVEL, SEPSIS - 2022-10-26 08:53:00 [facility] [place] [facility] NOW AND REPEAT 2X EVERY 3 [place] HOURS HCG QUALITATIVE, SERUM 2022-10-26 08:53:[address] [facility] [place] SCREEN [place] ESTIMATED GFR 2022-10-26 08:53:00 [facility] [place] REFERR[facility]- REQUEST/RESPONSE 2022-10-08 06:01:00 Doctor Unassigned , [facility] Medical Branch URINE CULTURE 2022-10-07 00:24:00 [facility] VITAMIN B12 LEVEL 2022-10-07 00:24:00 [facility] VITAMIN D 25 HYDROXY LEVEL 2022-10-07 00:24:00 [facility] ANTINUCLEAR ANTIBODIES (JOSE CARLOS) 2022-10-07 00:24:00 [facility] WITH REFLEX TO TITER AND PATTERN, IMMUNOFLUORESCENCE URINE DRUGS OF ABUSE SCREEN 2022-10-07 00:24:00 [facility] URINALYSIS SCREEN AND 2022-10-07 00:24:00 [facility] MICROSCOPY, WITH REFLEX TO CULTURE HIV 1/2 ANTIGEN/ANTIBODY, 2022-10-07 00:24:00 [facility] FOURTH GENERATION, WITH REFLEXES SYPHILIS TREPONEMA SCREEN 2022-10-07 00:24:00 [facility] WITH RPR CONFIRMATION (REVERSE ALGORITHM) SEDIMENTATION RATE 2022-10-07 00:24:00 [facility] C-REACTIVE PROTEIN 2022-10-07 00:24:00 [facility] FOLATE LEVEL 2022-10-07 00:24:00 [facility] spital EEG AWAKE/ASLEEP LESS THAN 2022-10-06 21:46:42 [facility] [address] HEAD WO CONTRAST 2022-10-06 19:55:34 [facility] TTE COMPLETE, W CONTRAST, W 2022-10-06 14:45:00 [facility] DOPPLER ([id number]) CBC WITH PLATELET AND 2022-10-06 09:37:00 [facility] DIFFERENTIAL PROTHROMBIN TIME WITH INR 2022-10-06 09:37:00 [facility] PARTIAL THROMBOPLASTIN TIME 2022-10-06 09:37:00 Fan, [facility] (PTT) CREATINE KINASE, TOTAL (CPK) 2022-10-06 09:37:00 Fan, [facility] B NATRIURETIC PEPTIDE 2022-10-06 09:37:00 Fan, [facility] COMPREHENSIVE METABOLIC 2022-10-06 09:37:00 Fan, [facility] PANEL LIPID PANEL 2022-10-06 09:37:00 Fan, [facility] spital MAGNESIUM LEVEL 2022-10-06 09:37:00 Fan, [facility] spital PHOSPHORUS LEVEL 2022-10-06 09:37:00 Fan, [facility] ospital PREALBUMIN LEVEL 2022-10-06 09:37:00 Fan, [facility] ospital THYROID STIMULATING HORMONE 2022-10-06 09:37:00 Fan, [facility] T4, FREE 2022-10-06 09:37:00 Fan, [facility] spital URIC ACID LEVEL 2022-10-06 09:37:00 Fan, [facility] spital BILIRUBIN DIRECT 2022-10-06 09:37:00 Fan, [facility] ospital ESTIMATED GFR 2022-10-06 09:37:00 Fan, [facility] spital LACTIC ACID LEVEL, SEPSIS - 2022-10-06 06:50:00 [facility] NOW AND REPEAT 2X EVERY 3 HOURS TROPONIN T 2022-10-06 06:50:[address] [facility] [address] ANGIOGRAM PE CHEST 2022-10-06 03:13:00 [facility] COVID-19 QUALITATIVE RT-PCR 2022-10-06 02:23:00 [facility] BLOOD CULTURE, AEROBIC & 2022-10-06 02:22:00 [facility] ANAEROBIC TROPONIN T 2022-10-06 00:40:00 [facility] LACTIC ACID LEVEL, SEPSIS - 2022-10-06 00:40:00 [facility] NOW AND REPEAT 2X EVERY 3 HOURS US DUPLEX VENOUS UPPER 2022-10-06 00:00:00 OsuaVincent norris [facility] EXTREMITY BILATERAL ECG ED PRELIMINARY 2022-10-05 23:13:45 Donny Noel [facility] INTERPRETATION HCG QUALITATIVE, SERUM 2022-10-05 21:59:00 Kimani Benítez [facility] SCREEN ESTIMATED GFR 2022-10-05 21:59:00 Jackelin [facility] [facility] CBC WITH PLATELET AND 2022-10-05 21:59:00 Kimani Benítez [facility] DIFFERENTIAL COMPREHENSIVE METABOLIC 2022-10-05 21:59:00 [facility] T 2022-10-05 21:59:00 Benítez, [facility] B NATRIURETIC PEPTIDE 2022-10-05 21:59:00 Kimani Benítez [facility] ECG 12-LEAD 2022-10-05 21:40:19 Jackelin [facility] ED ECG INTERPRETATION 2022-09-29 21:47:14 [facility] W/PLT COUNT & AUTO 2022-09-29 03:42:[address] [facility] S [facility] DIFFERENTIAL [facility] CBC W/PLT COUNT & AUTO 2022-09-29 03:42:00 [facility] S t [facility] DIFFERENTIAL [facility] (CELLAVISION MANUAL DIFF) 2022-09-29 03:42:00 Sorenson-Perico, CH I [facility] BASIC METABOLIC PANEL 2022-09-29 03:41:00 [facility] MAGNESIUM 2022-09-29 03:41:00 [facility] HCG, QUANTITATIVE, 2022-09-29 03:41:00 [facility] ECG 12-LEAD 2022-09-29 01:36:03 [facility] ECG 12-LEAD 2022-09-29 01:36:03 Unknown, Hl7 [facility] EKG-SCANNED 2022-09-29 00:00:00 Provider, Default [facility] EBV-MONONUCLEOSIS SCREEN 2022-09-25 02:37:00 Oscar Penaloza [facility] POCT TEST 2022-09-25 02:37:00 Oscar Penaloza [facility] URINE DRUG (IMMUNOASSAY) - 2022-09-25 01:47:00 [facility]EN Medica [facility] Branch XR CHEST 1 VW 2022-09-25 00:46:04 Oscar Penaloza [facility] MAGNESIUM 2022-09-25 00:38:00 Oscar Penaloza Krystina [facility] TROPONIN I 2022-09-25 00:38:00 Oscar Penaloza [facility] COMP. METABOLIC PANEL 2022-09-25 00:38:00 Oscar Penaloza [facility] ([id number]) [facility] CBC WITH DIFF 2022-09-25 00:38:00 Oscar Penaloza [facility] D-DIMER 2022-09-25 00:38:00 Oscar Penaloza [facility] URINALYSIS 2022-09-25 00:38:00 Chance [facility] N-TERMINAL PRO-BNP 2022-09-25 00:38:00 Oscar Penaloza [facility] CONSENT/REFUSAL FOR 2022-09-25 00:00:04 Doctor Unassigned, [facility] DIAGNOSIS AND TREATMENT [facility] 2D ECHO W/ DOPPLER 2022-09-19 09:42:56 Sathya Rick [facility] (CW/PW/COLOR) [facility] BASIC METABOLIC PANEL 2022-09-19 04:07:00 Ivonne Benitez [facility] MAGNESIUM 2022-09-19 04:07:00 Ivonne Benitez [facility] CBC W/PLT COUNT & AUTO 2022-09-19 04:07:00 Evelio [facility]tan [facility] DIFFERENTIAL [facility] CBC W/PLT COUNT & AUTO 2022-09-19 04:07:00 EmmanuelIvonne [facility] DIFFERENTIAL [facility] MR BRAIN WITHOUT IV CONTRAST 2022-09-18 18:52:00 Marysol Gerard Sy ed [facility] MRA NECK WITHOUT IV CONTRAST 2022-09-18 18:51:00 Moustapha [facility] ed [facility] MRA HEAD WITHOUT IV CONTRAST 2022-09-18 18:50:00 Moustapha [facility] ed [facility] SCREEN, URINE 2022-09-18 17:28:00 Marysol Gerard [facility] BASIC METABOLIC PANEL 2022-09-18 05:38:00 Emmanuel Eveliomiguelito [facility] MAGNESIUM 2022-09-18 05:38:00 Ivonne Benitez [facility] CBC W/PLT COUNT & AUTO 2022-09-18 05:38:00 Ivonne Benitez [facility] DIFFERENTIAL [facility] HIGH SENSITIVITY TROPONIN I 2022-09-18 05:38:00 Ivonne Benitez [facility] TSH/FREE T4 IF INDICATED 2022-09-18 05:38:00 Ivonne Benitez [facility] CBC W/PLT COUNT & AUTO 2022-09-18 05:38:00 Ivonne Benitez [facility] DIFFERENTIAL [facility] ECG 12-LEAD 2022-09-18 04:54:18 Emmanuel Eveliomiguelito [facility] ECG 12-LEAD 2022-09-18 04:54:18 Unknown, Hl7 [facility] URINALYSIS W/ MICROSCOPIC 2022-09-18 02:30:00 Ivonne Benitez [facility] ECG 12-LEAD 2022-09-17 22:28:54 Unknown, Hl7 [facility] HIGH SENSITIVITY TROPONIN I 2022-09-17 21:19:00 Severe, Steve [facility] CTA CHEST,ABDOMEN & PELVIS - 2022-09-17 21:03:00 Severe, Kwabena d [facility] FOR DISSECTION [facility] Center HCG, QUANTITATIVE, 2022-09-17 18:05:00 Severe, Kwabena d [facility] URINALYSIS W/ MICROSCOPIC 2022-09-17 16:03:00 Severe, Steve [facility] SARS-COV2/RT-PCR ([facility] & REF 2022-09-17 16:02:00 Severe, Kwabena d [facility] LABS) [facility] CBC W/PLT COUNT & AUTO 2022-09-17 16:02:00 Severe, [facility] COMPREHENSIVE METABOLIC 2022-09-17 16:02:00 Severe, Steve [facility] PANEL [facility] B-TYPE NATRIURETIC FACTOR 2022-09-17 16:02:00 Severe, Steve [facility] (BNP) [facility] LACTIC ACID, VENOUS 2022-09-17 16:02:00 Severe, Steve [facility] HIGH SENSITIVITY TROPONIN I 2022-09-17 16:02:00 Severe, Steve [facility] CBC W/PLT COUNT & AUTO 2022-09-17 16:02:00 Severe, [facility] XR CHEST 2 VIEWS 2022-09-17 14:50:00 Severe, Steve [facility] ECG 12-LEAD 2022-09-17 13:48:54 Severe, Steve [facility] ECG 12-LEAD 2022-09-17 13:48:54 Unknown, Hl7 [facility] EKG-SCANNED 2022-09-17 00:00:00 Provider, Lanette [facility] REFERRAL- REQUEST/RESPONSE 2022-09-03 05:01:00 Doctor Unassigned , [facility] Plan of Care Planned Activity Planned Date Details Comments Source Future Scheduled 2023-09-29 Tobacco Cessation [facility] Counseling and Medical [...] Cessation Counseling and Screening (12+)] Future Scheduled 2023-07-[address] [facility] 00:00:00 (Season Ended) [code Medical Center = INFLUENZA VACCINE (Season Ended)] Future Scheduled 2023-07-[address] [facility] 00:00:00 (Season Ended) [code Medical Center = INFLUENZA VACCINE (Season Ended)] Future Scheduled 2023-07-[address] [facility] 00:00:00 (Season Ended) [code Medical Center = INFLUENZA VACCINE (Season Ended)] Future Scheduled 2023-07-[address] [facility] 00:00:00 (Season Ended) [code Medical Center = INFLUENZA VACCINE (Season Ended)] Future Scheduled 2023-04-01 [facility] screening (procedure) [code = 425059533] Future Scheduled 2023-04-01 [facility]:00 malignant neoplasm of cervix (procedure) [code = 270252061] Future Scheduled 2023-04-01 [facility]ACCINE [facility] 18[facility]43[facility]00 - Booster for Pfizer series) [code = COVID-19 VACCINE (3 - Booster for Pfizer series)] Future Scheduled 2023-04-01 [facility]:43[facility]00 [code = INFLUENZA VACCINE] Future Scheduled 2023-03-08 [facility] 13:10:05 screening (procedure) [code = 652680742] Future Scheduled 2023-03-08 [facility] 13:10:05 malignant neoplasm of cervix (procedure) [code = 353076081] Future Scheduled 2023-03-08 COVID-[facility]ACCINE ([facility] 13:10:05 - Booster for Pfizer series) [code = COVID-19 VACCINE (3 - Booster for Pfizer series)] Future Scheduled 2023-03-08 [facility] 13:10:05 [code = INFLUENZA VACCINE] Future Scheduled 2023-03-08 [facility]10:05 screening (procedure) [code = 796443264] Future Scheduled 2023-03-08 [facility] 13:10:05 malignant neoplasm of cervix (procedure) [code = 052311930] Future Scheduled 2023-03-08 COVID-[facility]ACCINE ([facility] 13:10:05 - Booster for Pfizer series) [code = COVID-19 VACCINE (3 - Booster for Pfizer series)] Future Scheduled 2023-03-08 [facility] 13:10:05 [code = INFLUENZA VACCINE] Future Scheduled 2023-03-08 [facility] 13:10:05 screening (procedure) [code = 591756222] Future Scheduled 2023-03-08 [facility] 13:10:05 malignant neoplasm of cervix (procedure) [code = 533200105] Future Scheduled 2023-03-08 COVID-[facility] VACCINE ([facility] 13:10:05 - Booster for Pfizer series) [code = COVID-19 VACCINE (3 - Booster for Pfizer series)] Future Scheduled 2023-03-08 [facility] 13:10:05 [code = INFLUENZA VACCINE] Future Scheduled 2023-03-08 [facility] 13:10:05 screening (procedure) [code = 308504600] Future Scheduled 2023-03-08 [facility] 13:10:05 malignant neoplasm of cervix (procedure) [code = 370587708] Future Scheduled 2023-03-08 COVID-19 VACCINE ([facility] 13:10:05 - Booster for Pfizer series) [code = COVID-19 VACCINE (3 - Booster for Pfizer series)] Future Scheduled 2023-03-08 [facility] 13:10:05 [code = INFLUENZA VACCINE] Future Scheduled 2023-03-08 [facility] 13:10:05 screening (procedure) [code = 084651356] Future Scheduled 2023-03-08 [facility] 13:10:05 malignant neoplasm of cervix (procedure) [code = 720546528] Future Scheduled 2023-03-08 COVID-[facility] VACCINE ([facility] 13:10:05 - Booster for Pfizer series) [code = COVID-19 VACCINE (3 - Booster for Pfizer series)] Future Scheduled 2023-03-08 [facility] 13:10:05 [code = INFLUENZA VACCINE] Future Scheduled 2023-03-08 [facility] 13:10:05 screening (procedure) [code = 113809897] Future Scheduled 2023-03-08 [facility] 13:10:05 malignant neoplasm of cervix (procedure) [code = 995128389] Future Scheduled 2023-03-08 COVID-[facility]ACCINE ([facility] 13:10:05 - Booster for Pfizer series) [code = COVID-19 VACCINE (3 - Booster for Pfizer series)] Future Scheduled 2023-03-08 [facility] 13:10:05 [code = INFLUENZA VACCINE] Future Scheduled 2023-02-28 [facility] 19:09:51 screening (procedure) [code = 121522888] Future Scheduled 2023-02-28 [facility] 19:09:51 malignant neoplasm of cervix (procedure) [code = 888380653] Future Scheduled 2023-02-28 COVID-19 VACCINE ([facility] 19:09:51 - Booster for Pfizer series) [code = COVID-19 VACCINE (3 - Booster for Pfizer series)] Future Scheduled 2023-02-28 [facility] 19:09:51 [code = INFLUENZA VACCINE] Future Scheduled 2023-02-14 [facility] 09:59:59 screening (procedure) [code = 869717039] Future Scheduled 2023-02-14 [facility] 09:59:59 malignant neoplasm of cervix (procedure) [code = 159336214] Future Scheduled 2023-02-14 COVID-19 VACCINE ([facility] 09:59:59 - Booster for Pfizer series) [code = COVID-19 VACCINE (3 - Booster for Pfizer series)] Future Scheduled 2023-02-14 [facility] 09:59:59 [code = INFLUENZA VACCINE] Future Scheduled 2023-02-14 [facility] 09:59:59 screening (procedure) [code = 501232924] Future Scheduled 2023-02-14 [facility] 09:59:59 malignant neoplasm of cervix (procedure) [code = 088204233] Future Scheduled 2023-02-14 COVID-19 VACCINE ([facility] 09:59:59 - Booster for Pfizer series) [code = COVID-19 VACCINE (3 - Booster for Pfizer series)] Future Scheduled 2023-02-14 [facility] 09:59:59 [code = INFLUENZA VACCINE] Future Scheduled 2023-01-16 [facility] 23:58:04 screening (procedure) [code = 670820854] Future Scheduled 2023-01-16 [facility] 23:58:04 malignant neoplasm of cervix (procedure) [code = 231947209] Future Scheduled 2023-01-16 COVID-19 VACCINE ([facility] 23:58:04 - Booster for Pfizer series) [code = COVID-19 VACCINE (3 - Booster for Pfizer series)] Future Scheduled 2023-01-16 [facility] 23:58:04 [code = INFLUENZA VACCINE] Future Scheduled 2022-11-20 [facility] 13:09:46 screening (procedure) [code = 937484737] Future Scheduled 2022-11-20 [facility] 13:09:46 malignant neoplasm of cervix (procedure) [code = 655075036] Future Scheduled 2022-11-20 COVID-19 VACCINE ([facility] 13:09:46 - Booster for Pfizer series) [code = COVID-19 VACCINE (3 - Booster for Pfizer series)] Future Scheduled 2022-11-20 [facility] 13:09:46 [code = INFLUENZA VACCINE] Future Scheduled 2022-11-03 [facility] 22:12:47 screening (procedure) [code = 355873316] Future Scheduled 2022-11-03 [facility] 22:12:47 malignant neoplasm of cervix (procedure) [code = 616657270] Future Scheduled 2022-11-03 COVID-19 VACCINE ([facility] 22:12:47 - Booster for Pfizer series) [code = COVID-19 VACCINE (3 - Booster for Pfizer series)] Future Scheduled 2022-11-03 [facility] 22:12:47 [code = INFLUENZA VACCINE] Future Scheduled 2022-11-03 [facility] 22:12:47 screening (procedure) [code = 794345170] Future Scheduled 2022-11-03 [facility] 22:12:47 malignant neoplasm of cervix (procedure) [code = 696904923] Future Scheduled 2022-11-03 COVID-[facility] VACCINE ([facility] 22:12:47 - Booster for Pfizer series) [code = COVID-19 VACCINE (3 - Booster for Pfizer series)] Future Scheduled 2022-11-03 [facility] 22:12:47 [code = INFLUENZA VACCINE] Future Scheduled 2022-10-25 [facility] 14:57:33 screening (procedure) [code = 831942744] Future Scheduled 2022-10-25 [facility] 14:57:33 malignant neoplasm of cervix (procedure) [code = 358798085] Future Scheduled 2022-10-25 COVID-19 VACCINE ([facility] 14:57:33 - Booster for Pfizer series) [code = COVID-19 VACCINE (3 - Booster for Pfizer series)] Future Scheduled 2022-10-25 [facility] 14:57:33 [code = INFLUENZA VACCINE] Future Scheduled 2022-10-16 [facility] 16:48:19 screening (procedure) [code = 036311731] Future Scheduled 2022-10-16 [facility] 16:48:19 malignant neoplasm of cervix (procedure) [code = 060679906] Future Scheduled 2022-10-16 COVID-[facility] VACCINE ([facility] 16:48:19 - Booster for Pfizer series) [code = COVID-19 VACCINE (3 - Booster for Pfizer series)] Future Scheduled 2022-10-16 [facility] 16:48:19 [code = INFLUENZA VACCINE] Future Scheduled 2022-10-16 [facility] 16:48:19 screening (procedure) [code = 078283944] Future Scheduled 2022-10-16 [facility] 16:48:19 malignant neoplasm of cervix (procedure) [code = 481910163] Future Scheduled 2022-10-16 COVID-19 VACCINE ([facility] 16:48:19 - Booster for Pfizer series) [code = COVID-19 VACCINE (3 - Booster for Pfizer series)] Future Scheduled 2022-10-16 [facility] 16:48:19 [code = INFLUENZA VACCINE] Future Scheduled 2022-10-15 HEPATITIS B VACCINES [facility] Test 10:25:35 (1 of 3 - 3-dose series) [code = HEPATITIS B VACCINES (1 of 3 - 3-dose series)] Future Scheduled 2022-10-15 [facility] 10:25:35 screening (procedure) [code = 889727889] Future Scheduled 2022-10-15 [facility] 10:25:35 malignant neoplasm of cervix (procedure) [code = 408208063] Future Scheduled 2022-10-15 COVID-19 VACCINE ([facility] 10:25:35 - Booster for Pfizer series) [code = COVID-19 VACCINE (3 - Booster for Pfizer series)] Future Scheduled 2022-10-15 [facility] 10:25:35 [code = INFLUENZA VACCINE] Future Scheduled 2022-10-15 HEPATITIS B VACCINES [facility] Test 10:25:35 (1 of 3 - 3-dose series) [code = HEPATITIS B VACCINES (1 of 3 - 3-dose series)] Future Scheduled 2022-10-15 [facility] 10:25:35 screening (procedure) [code = 171545435] Future Scheduled 2022-10-15 [facility] 10:25:35 malignant neoplasm of cervix (procedure) [code = 706630246] Future Scheduled 2022-10-15 COVID-[facility] VACCINE ([facility] 10:25:35 - Booster for Pfizer series) [code = COVID-19 VACCINE (3 - Booster for Pfizer series)] Future Scheduled 2022-10-15 INFLUENZA VACCINE [facility] 10:25:35 [code = INFLUENZA VACCINE] [...] - Booster for Pfizer series)] Future Scheduled 2021-09-05 COVID-19 VACCINE ([address] [facility] 00:00:00 - Booster for Pfizer Medical Center series) [code = COVID-19 VACCINE (3 - Booster for Pfizer series)] Future Scheduled 2021-09-05 COVID-19 VACCINE ([address] [facility] 00:00:00 - Booster for Pfizer Medical Center series) [code = COVID-19 VACCINE (3 - Booster for Pfizer series)] Future Scheduled 2021-09-05 COVID-19 VACCINE ([address] [facility] 00:00:00 - Booster for Pfizer Medical Center series) [code = COVID-19 VACCINE (3 - Booster for Pfizer series)] Future Scheduled 2021-09-05 COVID-19 VACCINE ([address] [facility] 00:00:00 - Booster for Pfizer Medical Center series) [code = COVID-19 VACCINE (3 - Booster for Pfizer series)] Future Scheduled 2021-09-05 COVID-19 VACCINE ([address] [facility] 00:00:00 - Booster for Pfizer Medical Center series) [code = COVID-19 VACCINE (3 - Booster for Pfizer series)] Future Scheduled [address] [facility] 00:[facility]:00 malignant neoplasm Medical C enter of cervix (procedure) [code = 432947570] Future Scheduled [address] [facility] 00:00:00 malignant neoplasm Medical C enter of cervix (procedure) [code = 915565873] Future Scheduled [address] [facility] 00:00:00 malignant neoplasm Medical C enter of cervix (procedure) [code = 181435373] Future Scheduled [address] [facility] 00:00:00 malignant neoplasm Medical C enter of cervix (procedure) [code = 233203185] Future Scheduled [address] [facility] 00:00:00 malignant neoplasm Medical C enter of cervix (procedure) [code = 558653704] Future Scheduled [address] [facility] 00:00:00 malignant neoplasm Medical C enter of cervix (procedure) [code = 228504821] Future Scheduled [address] [facility] 00:00:00 malignant neoplasm Medical C enter of cervix (procedure) [code = 955798028] Future Scheduled [address] [facility] 00:00:00 malignant neoplasm Medical C enter of cervix (procedure) [code = 514369154] Future Scheduled [address] [facility] 00:00:00 malignant neoplasm Medical C enter of cervix (procedure) [code = 873472019] Future Scheduled [address] [facility] 00:00:00 malignant neoplasm Medical C enter of cervix (procedure) [code = 554361965] Future Scheduled [address] [facility] 00:00:00 malignant neoplasm Medical C enter of cervix (procedure) [code = 741194642] Future Scheduled [address] [facility] 00:00:00 malignant neoplasm Medical C enter of cervix (procedure) [code = 039142283] Future Scheduled [address] [facility] 00:00:00 malignant neoplasm Medical C enter of cervix (procedure) [code = 287502741] Future Scheduled [address] [facility] 00:00:00 malignant neoplasm Medical C enter of cervix (procedure) [code = 629749075] Future Scheduled [address] [facility] 00:00:00 malignant neoplasm Medical C enter of cervix (procedure) [code = 115412844] Future Scheduled [address] [facility] 00:00:00 malignant neoplasm Medical C enter of cervix (procedure) [code = 655125213] Future Scheduled [address] [facility] (procedure) [code = [facility] Center 96601485] Future Scheduled [address] [facility]00 (procedure) [code = Medical Center 52001937] Future Scheduled [address] [facility] 00:[facility]:00 (procedure) [code = Medical Center 83091305] Future Scheduled [address] [facility] 00:00:00 (procedure) [code = Medical Center 45902167] Future Scheduled [address] [facility] 00:00:00 (procedure) [code = Medical Center 49629187] Future Scheduled [address] [facility] 00:00:00 (procedure) [code = Medical Center 12807092] Future Scheduled [address] [facility] 00:00:00 (procedure) [code = Medical Center 17999408] Future Scheduled [address] [facility] 00:00:00 (procedure) [code = Medical Center 03493415] Future Scheduled [address] [facility] 00:00:00 (procedure) [code = Medical Center 66606003] Future Scheduled [address] [facility] 00:00:00 (procedure) [code = [facility] 82635749] Future Scheduled [address] [facility] 00:00:00 (procedure) [code = Medical Center 63326976] Future Scheduled [address] [facility] 00:00:00 (procedure) [code = Medical Center 88326479] Future Scheduled [address] [facility] 00:00:00 (procedure) [code = Medical Center 78083992] Future Scheduled [address] [facility] 00:00:00 (procedure) [code = Medical Center 49437894] Future Scheduled [address] [facility] 00:00:00 (procedure) [code = Medical Center 10323172] Future Scheduled [address] [facility] 00:00:00 (procedure) [code = Medical Center 71135326] Future Scheduled 2008 DTAP/TDAP[facility]TD [facility] [...] Goal Plan of Care Note [code = 58267-6] Goal Plan of Care Note [code = 88812-6] Goal Plan of Care Note [code = 17960-9] Goal Plan of Care Note [code = 48113-5] Goal Plan of Care Note [code = 32778-1] Goal Plan of Care Note [code = 77573-9] Goal Plan of Care Note [code = 99261-9] Goal Plan of Care Note [code = 07887-3] Goal Plan of Care Note [code = 12037-1] Goal Plan of Care Note [code = 31518-7] Goal Plan of Care Note [code = 50294-4] Goal Plan of Care Note [code = 04537-2] Goal Plan of Care Note [code = 08735-1] Goal Plan of Care Note [code = 94473-5] Goal Plan of Care Note [code = 34793-3] Goal Plan of Care Note [code = 44878-9] Goal Plan of Care Note [code = 18397-6] Goal Plan of Care Note [code = 72531-5] Goal Plan of Care Note [code = 97975-4] Goal Plan of Care Note [code = 74202-0] Goal Plan of Care Note [code = 94629-0] Goal Plan of Care Note [code = 20409-6] Goal Plan of Care Note [code = 36779-2] Goal Plan of Care Note [code = 03476-6] Goal Plan of Care Note [code = 16769-2] Goal Plan of Care Note [code = 71700-6] Goal Plan of Care Note [code = 32700-0] Goal Plan of Care Note [code = 90118-5] Goal Plan of Care Note [code = 21858-3] Goal Plan of Care Note [code = 79343-1] Goal Plan of Care Note [code = 59206-5] Goal Plan of Care Note [code = 32077-0] Goal Plan of Care Note [code = 37158-8] Goal Plan of Care Note [code = 54383-0] Goal Plan of Care Note [code = 68108-7] Goal Plan of Care Note [code = 94678-1] Goal Plan of Care Note [code = 64606-4] Goal Plan of Care Note [code = 21621-0] Goal Plan of Care Note [code = 48647-8] Goal Plan of Care Note [code = 42381-8] Goal Plan of Care Note [code = 98533-2] Goal Plan of Care Note [code = 75238-8] Goal Plan of Care Note [code = 13071-4] Goal Plan of Care Note [code = 95126-8] Goal Plan of Care Note [code = 77713-1] Goal Plan of Care Note [code = 65143-3] Goal Plan of Care Note [code = 39426-0] Goal Plan of Care Note [code = 71885-8] Goal Plan of Care Note [code = 10120-1] Goal Plan of Care Note [code = 66445-7] Goal Plan of Care Note [code = 98404-6] Goal Plan of Care Note [code = 34789-1] Encounters Start End Encounter Admission Attending Care Care Encounter Source Date/Time Date/Time Type Type Clinicians Facility Department ID 2022-04-24 Outpatient ABHI PAUL 7505 PRINCESS 16:04:42 DORIS 2023-03-29 2023-03-29 Outpatient SFA SFA [id number] James 12:58:59 12:58:59 [id number] Kerry Montejo 2023-03-27 2023-03-27 Outpatient SFA SFA James 15:27:19 15:27:19 [id number] F [place] 2023-03-20 2023-03-20 Outpatient SFA SFA James 11:26:34 11:26:34 [id number] F [place] 2023-03-18 2023-03-18 Outpatient SFA SFA James 15:53:34 15:53:34 [id number] F [place] 2023-03-04 2023-03-04 Orders Doctor REJI 1.2.840.114 [id number] Univers 00:00:00 00:00:00 Only Unassigned, ARISTEO 350.1.13.10 [place] [facility] 4.2.7.2.686 Miguel Angel as [phone] [facility] [address] 2023-03-02 2023-03-02 Outpatient SFA SFA James 13:47:00 13:47:00 [id number] F [place] 2023-02-19 2023-02-19 Outpatient SFA SFA James 11:56:20 11:56:20 [id number] F [place] 2023-02-14 2023-02-14 Outpatient SFA SFA James 09:59:24 09:59:24 [id number] F [place] 2023-01-25 2023-01-25 Outpatient SFA SFA James 15:27:29 15:27:29 [id number] F [place] 2022-12-18 2022-12-18 Doris Holden 1.2.840.114 [id number] Univers 00:00:00 00:00:00 Y PEDIATRIC 350.1.13.10 [place] [id number] [facility] PRIMARY [address] CARE CLINIC 2022-11-08 2022-11-08 Outpatient SFA SFA James 10:28:10 10:28:10 [id number] F [place] 2022-11-07 2022-11-07 Outpatient SFA SFA James 11:06:31 11:06:31 [id number] F [place] 2022-10-26 2022-10-26 Emergency Tiff Garcia 1.2.840.1 [id number] Methodi 02:17:00 03:37:00 Agustin Dowd 75010.1.1 748 s t 3.430.2.7 Hospit a .3.338775 l .8 2022-10-26 2022-10-26 Emergency Tiff Garcia 1.2.840.1 [id number] Methodi 02:17:00 03:37:00 Agustin Dowd 00274.1.1 748 s t 3.430.2.7 Hospit a .3.470769 l .8 2022-10-26 2022-10-26 Travel 1.2.840.1 1.2.468.182 [id number] Methodi 00:00:00 00:00:[address] 3.430.2.7 0.2.7.3.698 Ho spita .3.250248 084.8 l .8 2022-10-26 2022-10-26 Travel 1.2.840.1 1.2.413.413 1937 [id number] Methodi 00:00:00 00:00:[address] 3.430.2.7 0.2.7.3.698 Ho spita .3.971811 084.8 l .8 2022-10-25 2022-10-25 [facility] 1.2.840.114 [id number] Univers 00:00:00 00:00:00 (Out) [facility] 350.1.13.10 it y of Neurology [place].2.[place] [phone] [facility] [address] OFFICE BUILDING 2022-10-21 2022-10-21 Doris Holden 1.2.840.114 [id number] Univers 00:00:00 00:00:00 Y PEDIATRIC 350.1.13.10 [place] [id number] [place] [address] [address] CARE CLINIC 2022-10-16 2022-10-16 Outpatient SFA [facility] [id number] James 14:25:22 14:25:22 [id number] F [place] 2022-10-16 2022-10-16 Outpatient [id number] [id number] 00:00:00 00:00:00 Visit h302-714b 821-470f-b -xr1q-b9h y6y-a3b082 5333i687p 8t272h 2022-10-10 2022-10-10 Patient Vinicius, 1.2.840.1 [id number] [id number] Methodi 00:00:00 00:00:00 Outreach Laura [address]134.1.[address] 3.430.2.7 Hospit a .3.499176 l .8 2022-10-10 2022-10-10 Patient Vinicius, 1.2.840.1 [id number] Methodi 00:00:00 00:00:00 Outreach Laura 44830.1.[address] 3.430.2.7 Hospit a .3.793258 l .8 2022-10-08 2022-10-08 Orders Doctor REJI 1.2.840.114 [id number] Univers 00:00:00 00:00:00 Only Unassigned, ARISTEO 350.1.13.10 it[place] [facility] 4.2.7.2.686 Miguel Angel as [phone] [address] 2022-10-05 2022-10-07 Emergency Donny Noel 1.2.840.1 1040 [id number] [id number] Methodi 15:40:00 17:25:00 [place] [address]324.1.[address] 3.430.2.7 Hospit a .3.307400 l .8 2022-10-05 2022-10-07 Emergency Donny Noel 1.2.840.1 1040 24396 [id number] Methodi 15:40:00 17:25:00 Rich [place] [address]14.1.[address] 3.430.2.7 Hospit a .3.190015 l .8 2022-10-02 2022-10-02 Outpatient [facility] [id number] James 13:45:08 13:45:08 [id number] F [place] 2022-09-29 2022-09-29 Outpatient [facility] [id number] [facility] [employer] [facility] 00:00:00 23:59:00 Lawanda 2022-09-29 2022-09-29 Emergency ER [facility] Emergency 20 [id number] SLE 01:36:00 07:44:00 ROSSY OCHOA 2022-09-29 2022-09-29 Emergency ER [facility] [id number] 01:36:00 07:44:00 Rossy ochoa [facility] 2022-09-29 2022-09-29 Travel [facility] [id number] [facility] 00:00:00 00:00:00 [facility] 2022-09-24 2022-09-24 Emergency X Oscar PENALOZA [facility] ERT [id number] Univers 18:19:00 21:37:00 ity of [facility] 2022-09-24 2022-09-24 Emergency ChanceOscar [facility] 1.2.840.114 [id number] Univers 18:19:00 21:37:00 [facility] 350.1.13.10 [facility] 4.2.7.2.686 [facility] [id number] [address] 2022-09-24 2022-09-24 Outpatient [facility] [id number]- [id number] James 17:01:48 17:01:48 [id number] F [place] 2022-09-24 2022-09-24 Outpatient [id number]- [id number] 750ecf-8 00:00:00 00:00:00 Visit 1l2i-289m c7g-367x-f -d81j-fby 83e-cedbd8 xb9ql5a48 ce2f51 2022-09-17 2022-09-19 Outpatient ER MOUSTAPHA, [facility] Emergency [id number] SLE 13:57:00 17:05:00 MARYSOL 2022-09-17 2022-09-19 Emergency ER Severe, Steve [facility] [id number] 13:57:00 17:05:00 Jass Mcnamara [facility] 2022-09-18 2022-09-18 Travel [facility] [id number] [facility] 00:00:00 00:00:00 [facility] 2022-09-17 2022-09-17 Outpatient [facility] [id number] [facility] 00:00:00 23:59:00 Colleg e [facility] Medicin e 2022-09-17 2022-09-17 Orders [facility] [id number] 00:00:00 00:00:00 Only [facility] 2022-09-11 2022-09-11 Outpatient SFA SFA [id number] James 16:14:02 16:14:02 [id number] F [place] 2022-09-06 2022-09-06 Outpatient SFA SFA [id number]- James 15:21:36 15:21:36 73893 F [place] 2022-09-06 2022-09-06 Outpatient [id number]- [id number] f2 sr1cs3-m 00:00:00 00:00:00 Visit n86h-63o6 39a-44a9-a -v496-50u 149-52f05c 44r5m0728 3s6132 2022-09-03 2022-09-03 Outpatient SFA SFA [id number] James 14:25:05 14:25:05 [id number] F [place] 2022-09-03 2022-09-03 Orders Doctor REJI 1.2.840.114 [id number] [facility] 00:00:00 00:00:00 Only Unassigned, ARISTEO 350.1.13.10 it[place] [facility] 4.2.7.2.686 Miguel Angel as [id number] [address] 2022-09-03 2022-09-03 Outpatient 11fccdbf- [id number] fccdbf-f 00:00:00 00:00:00 Visit d060-7275 793-4010-8 -1qh6-098 ac0-395374 7144e40s2 8e17d2 2022-07-11 2022-07-12 Emergency E KIA, MHBL MHBL 7507 BL 20:54:00 00:37:00 SABDEIB 2022-06-20 2022-06-20 Outpatient R DORIS STOVALL [facility] [id number] Univers 11:15:00 13:07:14 ity of [facility] 2022-06-20 2022-06-20 Office StovallDoris barreto 1.2.840.114 [id number] Univers 11:15:00 13:07:14 Visit Y PEDIATRIC 350.1.13.10 [place] [id number] [address] CARE CLINIC 2022-06-19 2022-06-[address] [facility] 1.2.840.114 [id number] Univers 16:00:00 16:20:00 Care [facility] 350.1.13.10 it y of [place] 4.2.7.2.686 Miguel Angel as HARPREET?BLEA [id number] [address] MEDICAL OFFICE BUILDING 2022-06-19 2022-06-19 Outpatient R SHELIA [facility] [id number] Univers 16:00:00 16:00:00 [facility] ity [facility] 2022-06-19 2022-06-19 Orders Doctor REJI 1.2.840.114 [id number] Univers 00:00:00 00:00:00 Only Unassigned, ARISTEO 350.1.13.10 it[place] [facility] 4.2.7.2.686 Miguel Angel as [id number] [place] [address] [address] 2022-04-24 2022-04-24 Outpatient E SHAUNA [facility] 7506 MHCY 06:45:00 18:13:00 DA ZHANG 2022-04-14 2022-04-14 Emergency E MILLY, MHCY MHCY 7504 MHCY 14:10:00 18:49:00 THOMAS 2022-04-11 2022-04-13 Outpatient E MIGUEL [facility] MED 750 3 MHCY 23:00:00 13:40:00 YOHAN 2022-04-11 2022-04-11 Emergency E DELILAH, MHCY MHCY 7502 MHCY 04:18:00 06:47:00 BEENA 2022-04-10 2022-04-10 Emergency E JS, MHCY MHCY 7501 MHCY 10:05:00 14:04:00 [facility] 2022-03-28 2022-03-28 Emergency E JS, MHCY MHCY 7500 MHCY 14:03:00 20:48:00 [facility] 2022-03-26 2022-03-26 Emergency EM Crook, HCATB HCATB [id number] [facility] 21:24:00 22:58:00 Dav [id number] [facility] [place] 2022-03-26 2022-03-26 Emergency EM Crook, HCATB EO3 [id number] [facility] 21:24:00 22:58:00 Dav 03 [facility] [place] Results Test Description Test Time Test Comments Results Result Comments Source [facility], THIRD GENERATION 2022-11-09 05:01:14 Test Item Value Reference Range Interpretation Comme nts [facility], THIRD GENERATION (test 1.840 UIU/ML 0.400-4.100 UNLESS OTHERWISE INDICATED, code = 2821) ALL TESTING PER FORMED ATCLINICAL PATH [facility]. [address] [place] [address] 93 LABORATORY DIRE CTOR: GAY KWONG M.D. CLIA NUMBER [id number] [facility] [place]. [id number] Urine [id number] 10:18:00 Test Item Value Reference Range Interpretation Comments Urine culture (test SEE COMMENT Bacteriu marija screen code = 9123078) negative. [facility]2022-12-23 10:18:00 Test Item Value Reference Range Interpretation Comments Urine culture (test SEE COMMENT Bacteriu marija screen code = 4845687) negative. [facility] [id number] 10:18:00 Test Item Value Reference Range Interpretation Comments Urine culture (test SEE COMMENT Bacteriu marija screen code = 3059450) negative. [facility]2022-12-23 10:18:00 Test Item Value Reference Range Interpretation Comments Urine culture (test SEE COMMENT Bacteriu marija screen code = 6875031) negative. [facility] [id number] 10:18:00 Test Item Value Reference Range Interpretation Comments Urine culture (test SEE COMMENT Bacteriu marija screen code = 8416521) negative. [address]12-23 10:18:00 Test Item Value Reference Range Interpretation Comments Urine culture (test SEE COMMENT Bacteriu marija screen code = 8388972) negative. [address]12-23 10:18:00 Test Item Value Reference Range Interpretation Comments Urine culture (test SEE COMMENT Bacteriu marija screen code = 3541295) negative. [place] 526532-12-23 10:18:00 Test Item Value Reference Range Interpretation Comments Urine culture (test SEE COMMENT Bacteriu marija screen code = 5483789) negative. [address]12[address]23 10:18:00 Test Item Value Reference Range Interpretation Comments Urine culture (test SEE COMMENT Bacteriu marija screen code = 1972810) negative. [address]12-23 10:18:00 Test Item Value Reference Range Interpretation Comments Urine culture (test SEE COMMENT Bacteriu marija screen code = 0815325) negative. [address]12-23 10:18:00 Test Item Value Reference Range Interpretation Comments Urine culture (test SEE COMMENT Bacteriu marija screen code = 2907556) negative. [address]12-23 10:18:00 Test Item Value Reference Range Interpretation Comments Urine culture (test SEE COMMENT Bacteriu marija screen code = 2558100) negative. [address]12[address]23 10:18:00 Test Item Value Reference Range Interpretation Comments Urine culture (test SEE COMMENT Bacteriu marija screen code = 8018513) negative. [address]12-23 10:18:00 Test Item Value Reference Range Interpretation Comments Urine culture (test SEE COMMENT Bacteriu marija screen code = 2748832) negative. [address]12-04 01:05:00 Test Item Value Reference Range Interpretation Comments Urine culture (test SEE COMMENT Bacteriu marija screen code = 5211017) negative. [place] 526532-12-04 01:05:00 Test Item Value Reference Range Interpretation Comments Urine culture (test SEE COMMENT Bacteriu marija screen code = 0727105) negative. [address]12-04 01:05:00 Test Item Value Reference Range Interpretation Comments Urine culture (test SEE COMMENT Bacteriu marija screen code = 3609040) negative. [place] 526532-12-04 01:05:00 Test Item Value Reference Range Interpretation Comments Urine culture (test SEE COMMENT Bacteriu marija screen code = 4252836) negative. [facility]2022-12-04 01:05:00 Test Item Value Reference Range Interpretation Comments Urine culture (test SEE COMMENT Bacteriu marija screen code = 7803995) negative. [address]2022-12-03 22:11:54 Test Item Value Reference Range Interpretation Comments Ventricular rate (test 90 code = 253) Atrial rate (test code = 90 255) ME interval (test code = 156 266) QRSD [...] available-Electronica lly Signed By Reji Albrecht MD ([id number]) on 10/06/2022 4:11:[address]2022-12-03 22:11:54 Test Item Value Reference Range Interpretation Comments Ventricular rate (test code = 253) Atrial rate (test code = 255) ME interval (test code = 266) QRSD interval [...] available-Electronica lly Signed By Reji Albrecht MD ([id number]) on 10/06/2022 4:11:[address]2022-12-03 22:11:54 Test Item Value Reference Range Interpretation Comments Ventricular rate (test code = 253) Atrial rate (test code = 255) ME interval (test code = 266) QRSD interval [...] available-Electronica lly Signed By Reji Albrecht MD ([id number]) on 10/06/2022 4:11:[address]2022-12-03 22:11:54 Test Item Value Reference Range Interpretation Comments Ventricular rate (test code = 253) Atrial rate (test code = 255) ME interval (test code = 266) QRSD interval [...] Albrecht MD ([id number]) on 10/06/2022 4:11:[address]2022-12-03 22:11:54 Test Item Value Reference Range Interpretation Comments Ventricular rate (test code = 253) Atrial rate (test code = 255) ME interval (test code = 266) QRSD interval [...] available-Electronica lly Signed By Reji Albrecht MD ([id number]) on 10/06/2022 4:11:[address]2022-12-03 22:11:54 Test Item Value Reference Range Interpretation Comments Ventricular rate (test code = 253) Atrial rate (test code = 255) ME interval (test code = 266) QRSD interval [...] Albrecht MD (1008) on 10/06/2022 4:11:[address]2022-12-03 22:11:54 Test Item Value Reference Range Interpretation Comments Ventricular rate (test code = 253) Atrial rate (test code = 255) ME interval (test code = 266) QRSD interval [...] Albrecht MD ([id number]) on 10/06/2022 4:11:[address]2022-12-03 22:11:54 Test Item Value Reference Range Interpretation Comments Ventricular rate (test 90 code = 253) Atrial rate (test code = 90 255) ME interval (test code = 156 266) QRSD [...] Albrecht MD ([id number]) on 10/06/2022 4:11:[address]2022-12-03 22:11:54 Test Item Value Reference Range Interpretation Comments Ventricular rate (test 90 code = 253) Atrial rate (test code = 90 255) ME interval (test code = 156 266) QRSD [...] Albrecht MD ([id number]) on 10/06/2022 4:11:[address]2022-12-03 22:11:54 Test Item Value Reference Range Interpretation Comments Ventricular rate (test 90 code = 253) Atrial rate (test code = 90 255) ME interval (test code = 156 266) QRSD [...] Albrecht MD (1008) on 10/06/2022 4:11:[address]2022-12-03 22:11:54 Test Item Value Reference Range Interpretation Comments Ventricular rate (test 90 code = 253) Atrial rate (test code = 90 255) ME interval (test code = 156 266) QRSD [...] Albrecht MD ([id number]) on 10/06/2022 4:11:[address]2022-12-03 22:11:54 Test Item Value Reference Range Interpretation Comments Ventricular rate (test 90 code = 253) Atrial rate (test code = 90 255) ME interval (test code = 156 266) QRSD [...] Albrecht MD (1008) on 10/06/2022 4:11:[address]2022-12-03 22:11:54 Test Item Value Reference Range Interpretation Comments Ventricular rate (test 90 code = 253) Atrial rate (test code = 90 255) ME interval (test code = 156 266) QRSD [...] Albrecht MD (1008) on 10/06/2022 4:11:[address]2022-12-03 22:11:54 Test Item Value Reference Range Interpretation Comments Ventricular rate (test 90 code = 253) Atrial rate (test code = 90 255) ME interval (test code = 156 266) QRSD [...] Albrecht MD (1008) on 10/06/2022 4:11:[address]2022-12-03 22:11:54 Test Item Value Reference Range Interpretation Comments Ventricular rate (test 90 code = 253) Atrial rate (test code = 90 255) ME interval (test code = 156 266) QRSD [...] Albrecht MD (1008) on 10/06/2022 4:11:[address]2022-12-03 22:11:54 Test Item Value Reference Range Interpretation Comments Ventricular rate (test 90 code = 253) Atrial rate (test code = 90 255) ME interval (test code = 156 266) QRSD [...] T wave abnormality-Abnormal ECG-No previous ECGs available-Electronica y Signed By Reji Albrecht MD ([id number]) on 10/06/2022 4:11:[address]2022-12-03 22:11:54 Test Item Value Reference Range Interpretation Comments Ventricular rate (test 90 code = 253) Atrial rate (test code = 90 255) ME interval (test code = 156 266) QRSD [...] Albrecht MD (1008) on 10/06/2022 4:11:[address]2022-12-03 22:11:54 Test Item Value Reference Range Interpretation Comments Ventricular rate (test 90 code = 253) Atrial rate (test code = 90 255) ME interval (test code = 156 266) QRSD [...] Albrecht MD ([id number]) on 10/06/2022 4:11:50 PM [facility] 12 [id number] 22:11:54 Test Item Value Reference Range Interpretation Comments Ventricular rate (test code = 253) Atrial rate (test code = 255) ME interval (test code = 266) QRSD interval [...] Albrecht MD (1008) on 10/06/2022 4:11:[address] [facility] [Presence] in Respiratory specimen by MARIA C with probe [id number] 00:39:44 Test Item Value Reference Range Interpretation Comments SARS-CoV-2 (COVID-19) RNA Not detected [Presence] in Respiratory specimen by MARIA C with probe detection (test code = 31550-9) Whether patient is employed in a Unknown healthcare setting (test code = 89953-7) Whether the patient has symptoms Unknown related to condition of interest (test code = 93822-5) Whether the patient was Unknown hospitalized for condition of interest (test code = 16176-0) Whether the patient was admitted Unknown to intensive care unit (ICU) for condition of interest (test code = 27390-9) Whether patient resides in a Unknown congregate care setting (test code = 51228-3) status (test code = Unknown 19890-7) Date and time of symptom onset Unknown (test code = 31014-5) [facility] ED Preliminary Interpretation - Not an [id number] 23:13:45 Test Item Value Reference Range Interpretation Comments JAYDE (test code = JAYDE) Donny Noel MD 11/03/2022 9:53 [facility] ED Preliminary Interpretation - Not an OrderPerformed by: Donny Noel MDAuthorized by: Donny Noel MD ECG reviewed by ED Physician in the absence of a executive sous chef: yes Interpretation: Interpretation: abnormal Rate: ECG rate: 90 ECG rate assessment: normal Rhythm: Rhythm: sinus rhythm QRS: QRS axis: Normal QRS intervals: NormalST segments: ST segments: NormalComments: twi Lab Interpretation Abnormal (test code = 51086-5) [facility] ED Preliminary Interpretation - Not an [id number] 23:13:45 Test Item Value Reference Range Interpretation Comments JAYDE (test code = JAYDE) Donny Noel MD 11/03/2022 9:53 [facility] ED Preliminary Interpretation - Not an OrderPerformed by: Donny Noel MDAuthorized by: Donny Noel MD ECG reviewed by ED Physician in the absence of a executive sous chef: yes Interpretation: Interpretation: abnormal Rate: ECG rate: 90 ECG rate assessment: normal Rhythm: Rhythm: sinus rhythm QRS: QRS axis: Normal QRS intervals: NormalST segments: ST segments: NormalComments: twi Lab Interpretation Abnormal (test code = 39083-5) [facility] ED Preliminary Interpretation - Not an [id number] 23:13:45 Test Item Value Reference Range Interpretation Comments JAYDE (test code = JAYDE) Donny Noel MD 11/03/2022 9:53 [facility] ED Preliminary Interpretation - Not an OrderPerformed by: Donny Noel MDAuthorized by: Donny Noel MD ECG reviewed by ED Physician in the absence of a executive sous chef: yes Interpretation: Interpretation: abnormal Rate: ECG rate: 90 ECG rate assessment: normal Rhythm: Rhythm: sinus rhythm QRS: QRS axis: Normal QRS intervals: NormalST segments: ST segments: NormalComments: twi Lab Interpretation Abnormal (test code = 94968-5) [facility] ED Preliminary Interpretation - Not an [id number] 23:13:45 Test Item Value Reference Range Interpretation Comments JAYDE (test code = JAYDE) Donny Noel MD 11/03/2022 9:53 [facility] ED Preliminary Interpretation - Not an OrderPerformed by: Donny Noel MDAuthorized by: Donny Noel MD ECG reviewed by ED Physician in the absence of a executive sous chef: yes Interpretation: Interpretation: abnormal Rate: ECG rate: 90 ECG rate assessment: normal Rhythm: Rhythm: sinus rhythm QRS: QRS axis: Normal QRS intervals: NormalST segments: ST segments: NormalComments: twi Lab Interpretation Abnormal (test code = 77264-6) [facility] ED Preliminary Interpretation - Not an [id number] 23:13:45 Test Item Value Reference Range Interpretation Comments JAYDE (test code = JAYDE) Donny Noel MD 11/03/2022 9:53 [facility] ED Preliminary Interpretation - Not an OrderPerformed by: Donny Noel MDAuthorized by: Donny Neol MD ECG reviewed by ED Physician in the absence of a executive sous chef: yes Interpretation: Interpretation: abnormal Rate: ECG rate: 90 ECG rate assessment: normal Rhythm: Rhythm: sinus rhythm QRS: QRS axis: Normal QRS intervals: NormalST segments: ST segments: NormalComments: twi Lab Interpretation Abnormal (test code = 58301-1) [facility] ED Preliminary Interpretation - Not an [id number] 23:13:45 Test Item Value Reference Range Interpretation Comments JAYDE (test code = JAYDE) Donny Noel MD 11/03/2022 9:53 [facility] ED Preliminary Interpretation - Not an OrderPerformed by: Dnony Noel MDAuthorized by: Donny Noel MD ECG reviewed by ED Physician in the absence of a executive sous chef: yes Interpretation: Interpretation: abnormal Rate: ECG rate: 90 ECG rate assessment: normal Rhythm: Rhythm: sinus rhythm QRS: QRS axis: Normal QRS intervals: NormalST segments: ST segments: NormalComments: twi Lab Interpretation Abnormal (test code = 76096-8) [facility] ED Preliminary Interpretation - Not an [id number] 23:13:45 Test Item Value Reference Range Interpretation Comments JAYDE (test code = JAYDE) Donny Noel MD 11/03/2022 9:53 [facility] ED Preliminary Interpretation - Not an OrderPerformed by: Donny Noel MDAuthorized by: Donny Noel MD ECG reviewed by ED Physician in the absence of a executive sous chef: yes Interpretation: Interpretation: abnormal Rate: ECG rate: 90 ECG rate assessment: normal Rhythm: Rhythm: sinus rhythm QRS: QRS axis: Normal QRS intervals: NormalST segments: ST segments: NormalComments: twi Lab Interpretation Abnormal (test code = 72020-8) [facility] Preliminary Interpretation - Not an [id number] 23:13:45 Test Item Value Reference Range Interpretation Comments JAYDE (test code = JAYDE) Donny Noel MD 11/03/2022 9:53 [facility] ED Preliminary Interpretation - Not an OrderPerformed by: Donny Noel MDAuthorized by: Donny Noel MD ECG reviewed by ED Physician in the absence of a executive sous chef: yes Interpretation: Interpretation: abnormal Rate: ECG rate: 90 ECG rate assessment: normal Rhythm: Rhythm: sinus rhythm QRS: QRS axis: Normal QRS intervals: NormalST segments: ST segments: NormalComments: twi Lab Interpretation Abnormal (test code = 07344-8) [facility] ED Preliminary Interpretation - Not an [id number] 23:13:45 Test Item Value Reference Range Interpretation Comments JAYDE (test code = JAYDE) Donny Noel MD 11/03/2022 9:53 [facility] ED Preliminary Interpretation - Not an OrderPerformed by: Donny Noel MDAuthorized by: Donny Noel MD ECG reviewed by ED Physician in the absence of a executive sous chef: yes Interpretation: Interpretation: abnormal Rate: ECG rate: 90 ECG rate assessment: normal Rhythm: Rhythm: sinus rhythm QRS: QRS axis: Normal QRS intervals: NormalST segments: ST segments: NormalComments: twi Lab Interpretation Abnormal (test code = 20671-1) [facility] ED Preliminary Interpretation - Not an [id number] 23:13:45 Test Item Value Reference Range Interpretation Comments JAYDE (test code = JAYDE) Donny Noel MD 11/03/2022 9:53 [facility] ED Preliminary Interpretation - Not an OrderPerformed by: Donny Noel MDAuthorized by: Donny Noel MD ECG reviewed by ED Physician in the absence of a executive sous chef: yes Interpretation: Interpretation: abnormal Rate: ECG rate: 90 ECG rate assessment: normal Rhythm: Rhythm: sinus rhythm QRS: QRS axis: Normal QRS intervals: NormalST segments: ST segments: NormalComments: twi Lab Interpretation Abnormal (test code = 06060-5) [facility] Preliminary Interpretation - Not an [id number] 23:13:45 Test Item Value Reference Range Interpretation Comments JAYDE (test code = JAYDE) Donny Noel MD 11/03/2022 9:53 [facility] ED Preliminary Interpretation - Not an OrderPerformed by: Donny Noel MDAuthorized by: Donny Noel MD ECG reviewed by ED Physician in the absence of a executive sous chef: yes Interpretation: Interpretation: abnormal Rate: ECG rate: 90 ECG rate assessment: normal Rhythm: Rhythm: sinus rhythm QRS: QRS axis: Normal QRS intervals: NormalST segments: ST segments: NormalComments: twi Lab Interpretation Abnormal (test code = 88404-4) [facility] ED Preliminary Interpretation - Not an [id number] 23:13:45 Test Item Value Reference Range Interpretation Comments JAYDE (test code = JAYDE) Donny Noel MD 11/03/2022 9:53 [facility] ED Preliminary Interpretation - Not an OrderPerformed by: Donny Noel MDAuthorized by: Donny Noel MD ECG reviewed by ED Physician in the absence of a executive sous chef: yes Interpretation: Interpretation: abnormal Rate: ECG rate: 90 ECG rate assessment: normal Rhythm: Rhythm: sinus rhythm QRS: QRS axis: Normal QRS intervals: NormalST segments: ST segments: NormalComments: twi Lab Interpretation Abnormal (test code = 82261-4) [facility] ED Preliminary Interpretation - Not an [id number] 23:13:45 Test Item Value Reference Range Interpretation Comments JAYDE (test code = JAYDE) Donny Noel MD 11/03/2022 9:53 [facility] ED Preliminary Interpretation - Not an OrderPerformed by: Donny Noel MDAuthorized by: Donny Noel MD ECG reviewed by ED Physician in the absence of a executive sous chef: yes Interpretation: Interpretation: abnormal Rate: ECG rate: 90 ECG rate assessment: normal Rhythm: Rhythm: sinus rhythm QRS: QRS axis: Normal QRS intervals: NormalST segments: ST segments: NormalComments: twi Lab Interpretation Abnormal (test code = 12189-4) [facility] ED Preliminary Interpretation - Not an [id number] 23:13:45 Test Item Value Reference Range Interpretation Comments JAYDE (test code = JAYDE) Donny Noel MD 11/03/2022 9:53 [facility] ED Preliminary Interpretation - Not an OrderPerformed by: Donny Noel MDAuthorized by: Donny Noel MD ECG reviewed by ED Physician in the absence of a executive sous chef: yes Interpretation: Interpretation: abnormal Rate: ECG rate: 90 ECG rate assessment: normal Rhythm: Rhythm: sinus rhythm QRS: QRS axis: Normal QRS intervals: NormalST segments: ST segments: NormalComments: twi Lab Interpretation Abnormal (test code = 08721-1) [facility](CELLAVISION MANUAL DIFF)2022-09-29 06:57:14 Test Item Value Reference [...] CONCENTRATION Adequate (CELLAVISION)(BEAKER) (test code = 3438) [facility] ID - Carlee Brown comments: Slide comments:CBC W/PLT COUNT & AUTO [id number] 06:57:13 Test Item Value Reference Range Interpretation [...] (BEAKER) (test code = 413) HCG, QUANTITATIVE, [id number] 05:03:53 Test Item Value Reference Range Interpretation Comments GONADOTROPIN, CHORIONIC (HCG) QUANT < mIU/mL 0-10 (BEAKER) (test code = 649) Non- Females: <10 mIU/mL Females: Gestation Age Reference Range(mIU/mL) 0.2-1 Week 5-50 1-2 Weeks 50-500 2-3 Weeks 100-5,000 3-4 Weeks 500-10,000 4-5 Weeks 1,000-50,000 5-6 Weeks 10,000-100,000 6-8 Weeks 15,000- 200,000 2-3 Months 10,000-100,000 [facility] ID - DOROTHY [id number] 04:29:17 Test Item Value Reference Range Interpretation Comments MAGNESIUM (BEAKER) 1.9 mg/dL 1.6-2.6 Specimen slightly (test code = 627) hemolyzed [facility] PAM DE LA CRUZ LBASIC METABOLIC [id number] 04:29:17 Test Item Value Reference Range Interpretation [...] not appl icable for dialysis patien ts Vegetable [facility] ID - DOROTHY LOZADA-MONONUCLEOSIS [id number] 03:07:10 Test Item Value Reference Range Interpretation Comments EBV Mononucleosis Screen (test code Negative Negative = 0516001125) Lab Interpretation (test code = Normal 55707-8) [id number]:37[facility]00 Test Item Value Reference Range Interpretation Comments POCT PREG (test code = 1605) negative On board controls acceptable with present C Line (test code = 3574) POCT PREG LOT # (test code = 3575) [id number] POCT PREG TEST DATE (test 02/02/2024 code = 3576) Lab Interpretation (test code = Normal 95161-3) [facility] [id number] 01:15:13 Test Item Value Reference Interpretation Comments Range TROPONIN I (test 0.002 ng/mL See_Comment [Automated code = 1402269895) message] The system which generated this result [...] biotin. Lab Interpretation Normal (test code = 70307-7) [facility] [id number] 01:11:55 Test Item Value Reference Range Interpretation Comments NT-proBNP (test code 16 pg/mL See_Comment [Autom ated = 4511092581) message] The system which generated this result transmitted reference range : <=125. The reference range was not used to interpret this result as normal/abnormal . JAYDE (test code = JAYDE) Biotin has been reported to cause a negative bias, interpret results relative to patient's use of biotin. Lab Interpretation Normal (test code = 66017-7) [id number] 01:10:03 Test Item Value Reference Interpretation Comments Range D-DIMER (test code = See_Comment [Autom ated 2172141512) message] The system which generated this result [...] diagnosis. Lab Interpretation Normal (test code = 32350-4) [facility] 01:03:37 Test Item Value Reference Range Interpretation Comments MAGNESIUM (test code = 2509552988) 1.9 mg/dL 1.7-2.4 Lab Interpretation (test code = Normal 83604-5) [facility] (88943)2022-09-25 01:03:36 Test Item Value Reference Range Interpretation Comments NA (test code = 142 mmol/L 135-145 4446875849) K (test code = 3.8 mmol/L 3.5-5.0 3546590628) CL (test code = 111 mmol/L 98-108 H 2195537297) CO2 TOTAL (test code = 21 mmol/L 23-31 L 0567046913) AGAP (test code = 2-16 4361917109) BUN (test code = 11 mg/dL 7-23 9666852118) GLUCOSE (test code = 110 mg/dL 70-110 2240199419) CREATININE (test code = 0.92 mg/dL 0.50-1.04 2362643039) TOTAL BILI (test code = 0.4 mg/dL 0.1-1.9 6366381197) CALCIUM (test code = 9.1 mg/dL 8.6-10.6 0859761479) T PROTEIN (test code = 6.9 g/dL 6.3-8.2 3746348196) ALBUMIN (test code = 4.3 g/dL 3.5-5.0 2419344018) ALK PHOS (test code = 121 U/L 34-122 6086961735) ALTv (test code = 54 U/L 5-35 H 1741-) AST(SGOT) (test code = 38 U/L 13-40 7394953753) eGFR (test code = mL/min/1.73m2 3669777516) JAYDE (test code = JAYDE) Association of [...] tests). Lab Interpretation Abnormal (test code = 17297-0) [facility] WITH [id number] 00:50:11 Test Item Value Reference Range Interpretation [...] RDW-SD (test code = 48.3 fL 39.0-49.9 71159-9) RDW-CV (test code = 16.0 % 12.0-15.5 H 788-0) PLT (test code = See_Comment [Automated 777-3) message] The sy stem which generated this result transmitted reference range : 166 - 358 10*3/ ?L. The reference r jason was not used to interpret this result as normal/abnormal . MPV (test code = 9.9 fL 9.5-12.9 92148-3) NRBC/100 WBC (test See_Comment [Automat ed code = 6491674576) message] The system which generated this result transmitted reference range : 0.0 - 10.0 /100 WBCs. The refer ence range was not u sed to interpret th is result as normal/abnormal . NRBC x10^3 (test code See_Comment [Auto mated = 5937300988) message] The s [employer] which generated this result transmitted reference range : 10*3/?L. The reference range was not used to interpret this result as normal/abnormal . GRAN MAT (NEUT) % 71.2 % (test code = 770-8) IMM GRAN % (test code 0.90 % = 3475249397) LYMPH % (test code = 20.4 % 736-9) MONO % (test code = 6.0 % 5905-5) EOS % (test code = 1.1 % 713-8) BASO % (test code = 0.4 % 706-2) GRAN MAT x10^3(ANC) 9.94 10*3/uL 1.88-7.09 H (test code = 7615300270) IMM GRAN x10^3 (test 0.12 10*3/uL 0.00-0.06 H code = 2349936020) LYMPH x10^3 (test code 2.84 10*3/uL 1.32-3.29 = 731-0) MONO x10^3 (test code 0.84 10*3/uL 0.33-0.92 = 742-7) EOS x10^3 (test code = 0.15 10*3/uL 0.03-0.39 711-2) BASO x10^3 (test code 0.05 10*3/uL 0.01-0.07 = 704-7) Lab Interpretation Abnormal (test code = 30715-3) [facility]Do[facility](CW/PW/Color)2022-09-19 12:25:54Ejection FractionSLE ECHO HEARTLAB [facility]2D Echo W/Doppler(CW/PW/Color)2022-09-19 12:25:54Ejection FractionSLEH ECHO HEARTLAB [facility]2D Echo W/Doppler(CW/PW/Color)2022-09-19 12:25:54Ejection FractionSLE ECHO HEARTLAB [facility]2D Echo W/Doppler(CW/PW/Color) 2022-09-19 12:25:54Ejection FractionSLE ECHO HEARTLAB [facility]2D Echo W/Doppler(CW/PW/Color)2022-09-19 12:25:54Ejection FractionSLEH ECHO HEARTLAB YASMEEN [facility] Echo W/Doppler(CW/PW/Color)2022-09-19 12:25:54Ejection FractionSLEH ECHO HEARTLAB YASMEEN [facility]2D Echo W/Doppler(CW/PW/Color) 2022-09-19 12:25:54Ejection FractionSLEH ECHO HEARTLAB YASMEEN [facility]2D Echo W/Doppler(CW/PW/Color)2022-09-19 12:25:54Ejection FractionSLEH ECHO HEARTLAB FREDOKORY [facility]2D Echo W/Doppler(CW/PW/Color)2022-09-19 12:25:54Ejection FractionSLEH ECHO HEARTLAB FREDOKORY [facility]2D Echo W/Doppler(CW/PW/Color) 2022-09-19 12:25:54Ejection FractionSLEH ECHO HEARTLAB YASMEEN [facility]2D Echo W/Doppler(CW/PW/Color)2022-09-19 12:25:54Ejection FractionSLEH ECHO HEARTLAB YASMEEN [facility]2D Echo W/Doppler(CW/PW/Color)2022-09-19 12:25:54Ejection FractionSLEH ECHO HEARTLAB YASMEEN [facility]2D Echo W/Doppler(CW/PW/Color) 2022-09-19 12:25:54Ejection FractionSLEH ECHO HEARTLAB YASMEEN [facility]2D Echo W/Doppler(CW/PW/Color)2022-09-19 12:25:54Ejection FractionSLEH ECHO [facility]ARTLAB [facility](CW/PW/Color)2022-09-19 12:25:54Ejection FractionSLEH ECHO HEARTLAB FREDOABIGAILSt. [facility] W/Doppler(CW/PW/Color) 2022-09-19 12:25:54Ejection FractionSLEH ECHO HEARTLAB MKCKESSON CPACSCHI [facility] HospitalBAS[facility] METABOLIC [id number] 06:21:24 Test Item Value Reference Range Interpretation [...] not appl icable for dialysis patien ts Veget[facility] ID - BAN [id number] 06:21:24 Test Item Value Reference Range Interpretation Comments MAGNESIUM (BEAKER) (test code = 2.0 mg/dL 1.6-2.6 627) [facility] ID - BAN MCBC W/PLT COUNT & AUTO [id number] 05:15:21 Test Item Value Reference Range Interpretation [...] code = 2801) MR, MRA, BRAIN, WITHOUT [id number] 20:21:00Reason for exam:->[facility]schemic St[facility]ame[facility] : 1990 Sex: FFINAL REPORT [...] 09/18/2022 20:21:23 MR, MRA, NECK, WITHOUT IV [id number] 20:21:00Reason for exam:->Ischemic Stroke EvaluationSEL[facility]Name: [facility] : 1990 Sex: [...] Verified Date/Time: 09/18/2022 20:21:23 MR, BRAIN, WITHOUT [id number] 20:21:00Reason for exam:->Ischemic Stroke EvaluationST. [facility]OName: CAROLINE DURAND : 1990 Sex: FFINAL REPORT [...] [place] MDReport Verified Date/Time: 09/18/2022 20:21:23 Screen, [id number] 17:50:03 Test Item Value Reference Range Interpretation Comments Preg Test, Ur (test code = 2112-1) Negative Negative Lab Interpretation (test code = Normal 91685-6) [facility] [id number] 17:50:03 Test Item Value Reference Range Interpretation Comments Preg Test, Ur (test code = 2112-1) Negative Negative Lab Interpretation (test code = Normal 24848-6) [facility], [id number] 17:50:03 Test Item Value Reference Range Interpretation Comments Preg Test, Ur (test code = 2112-1) Negative Negative Lab Interpretation (test code = Normal 99248-5) [facility], [id number] 17:50:03 Test Item Value Reference Range Interpretation Comments Preg Test, Ur (test code = 2112-1) Negative Negative Lab Interpretation (test code = Normal 84977-3) [facility], [id number] 17:50:03 Test Item Value Reference Range Interpretation Comments Preg Test, Ur (test code = 2112-1) Negative Negative Lab Interpretation (test code = Normal 86085-3) [facility], [id number] 17:50:03 Test Item Value Reference Range Interpretation Comments Preg Test, Ur (test code = 2112-1) Negative Negative Lab Interpretation (test code = Normal 23637-3) [facility], [id number] 17:50:03 Test Item Value Reference Range Interpretation Comments Preg Test, Ur (test code = 2112-1) Negative Negative Lab Interpretation (test code = Normal 27264-3) [facility], [id number] 17:50:03 Test Item Value Reference Range Interpretation Comments Preg Test, Ur (test code = 2112-1) Negative Negative Lab Interpretation (test code = Normal 54450-7) [facility], [id number] 17:50:03 Test Item Value Reference Range Interpretation Comments Preg Test, Ur (test code = 2112-1) Negative Negative Lab Interpretation (test code = Normal 54992-9) [facility], [id number] 17:50:03 Test Item Value Reference Range Interpretation Comments Preg Test, Ur (test code = 2112-1) Negative Negative Lab Interpretation (test code = Normal 02316-5) [facility], [id number] 17:50:03 Test Item Value Reference Range Interpretation Comments Preg Test, Ur (test code = 2112-1) Negative Negative Lab Interpretation (test code = Normal 57705-7) [facility], [id number] 17:50:03 Test Item Value Reference Range Interpretation Comments Preg Test, Ur (test code = 2112-1) Negative Negative Lab Interpretation (test code = Normal 81413-8) [facility], [id number] 17:50:03 Test Item Value Reference Range Interpretation Comments Preg Test, Ur (test code = 2112-1) Negative Negative Lab Interpretation (test code = Normal 90502-2) [facility], [id number] 17:50:03 Test Item Value Reference Range Interpretation Comments Preg Test, Ur (test code = 2112-1) Negative Negative Lab Interpretation (test code = Normal 65468-5) [facility], [id number] 17:50:03 Test Item Value Reference Range Interpretation Comments Preg Test, Ur (test code = 2112-1) Negative Negative Lab Interpretation (test code = Normal 86944-1) [facility], [id number] 17:50:03 Test Item Value Reference Range Interpretation Comments Preg Test, Ur (test code = 2112-1) Negative Negative Lab Interpretation (test code = Normal 22850-6) [facility]PREG[facility]NCY SCREEN, [id number] 17:50:03 Test Item Value Reference Range Interpretation Comments TEST URINE (BEAKER) (test Negative Negative code = 583) Urinalysis w/ [id number] 07:01:05 Test Item Value Reference Range Interpretation Comments Color, UA (test code Yellow = 5778-6) Clarity, UA (test Clear code = 5767-9) Specific Telephone, UA >1.050 1.001-1.035 H (test code = 5811-5) pH, UA (test code = 9.0 5.0-8.0 H 5803-2) Protein, UA (test 70 mg/dL Negative A code = 20781-9) Glucose, UA (test Negative Negative code = 365) Ketones, UA (test Negative Negative code = 2514-8) Bilirubin, UA (test Negative Negative code = 51707-0) Blood, UA (test code Negative Negative = 91653-7) Nitrite, UA (test Negative Negative code = 5802-4) Leukocytes, UA (test Negative Negative code = 5799-2) Urobilinogen, UA 0.2 0.2-1.0 (test code = 61198-5) RBC, UA (test code = 2 See_Comment [Autom ated 02396-5) message] The system which generated this result [...] 4 See_Comment [Automate d (test code = 96357-9) messag e] The system which generated this result transmit ajay reference range : /HPF. The reference range was not used to interpret this result as normal/abnormal . Specimen Source (test Urine, Clean code = 2795) Catch JAYDE (test code = JAYDE) [facility] ID - tech Lab Interpretation Abnormal (test code = 41406-8) [facility]/ [id number] 07:01:05 Test Item Value Reference Range Interpretation Comments Color, UA (test code Yellow = 5778-6) Clarity, UA (test Clear code = 5767-9) Specific Telephone, UA >1.050 1.001-1.035 H (test code = 5811-5) pH, UA (test code = 9.0 5.0-8.0 H 5803-2) Protein, UA (test 70 mg/dL Negative A code = 63837-3) Glucose, UA (test Negative Negative code = 365) Ketones, UA (test Negative Negative code = 2514-8) Bilirubin, UA (test Negative Negative code = 47688-5) Blood, UA (test code Negative Negative = 94597-4) Nitrite, UA (test Negative Negative code = 5802-4) Leukocytes, UA (test Negative Negative code = 5799-2) Urobilinogen, UA 0.2 0.2-1.0 (test code = 57552-8) RBC, UA (test code = 2 See_Comment [Autom ated 18319-8) message] The system which generated this result [...] 4 See_Comment [Automate d (test code = 46810-8) messag e] The system which generated this result transmit ajay reference range : /HPF. The reference range was not used to interpret this result as normal/abnormal . Specimen Source (test Urine, Clean code = 2795) Catch JAYDE (test code = JAYDE) [facility] ID - tech Lab Interpretation Abnormal (test code = 64915-4) [facility]/ [id number] 07:01:05 Test Item Value Reference Range Interpretation Comments Color, UA (test code Yellow = 5778-6) Clarity, UA (test Clear code = 5767-9) Specific Telephone, UA >1.050 1.001-1.035 H (test code = 5811-5) pH, UA (test code = 9.0 5.0-8.0 H 5803-2) Protein, UA (test 70 mg/dL Negative A code = 50584-7) Glucose, UA (test Negative Negative code = 365) Ketones, UA (test Negative Negative code = 2514-8) Bilirubin, UA (test Negative Negative code = 88843-1) Blood, UA (test code Negative Negative = 26637-0) Nitrite, UA (test Negative Negative code = 5802-4) Leukocytes, UA (test Negative Negative code = 5799-2) Urobilinogen, UA 0.2 0.2-1.0 (test code = 27616-8) RBC, UA (test code = 2 See_Comment [Autom ated 03158-3) message] The system which generated this result [...] 4 See_Comment [Automate d (test code = 55500-2) messag e] The system which generated this result transmit ajay reference range : /HPF. The reference range was not used to interpret this result as normal/abnormal . Specimen Source (test Urine, Clean code = 2795) Catch JAYDE (test code = JAYDE) [facility] ID - tech Lab Interpretation Abnormal (test code = 31863-0) [facility]/ [id number] 07:01:05 Test Item Value Reference Range Interpretation Comments Color, UA (test code Yellow = 5778-6) Clarity, UA (test Clear code = 5767-9) Specific Telephone, UA >1.050 1.001-1.035 H (test code = 5811-5) pH, UA (test code = 9.0 5.0-8.0 H 5803-2) Protein, UA (test 70 mg/dL Negative A code = 31225-2) Glucose, UA (test Negative Negative code = 365) Ketones, UA (test Negative Negative code = 2514-8) Bilirubin, UA (test Negative Negative code = 90273-9) Blood, UA (test code Negative Negative = 39946-3) Nitrite, UA (test Negative Negative code = 5802-4) Leukocytes, UA (test Negative Negative code = 5799-2) Urobilinogen, UA 0.2 0.2-1.0 (test code = 26630-2) RBC, UA (test code = 2 See_Comment [Autom ated 37436-4) message] The system which generated this result [...] 4 See_Comment [Automate d (test code = 26708-2) messag e] The system which generated this result transmit ajay reference range : /HPF. The reference range was not used to interpret this result as normal/abnormal . Specimen Source (test Urine, Clean code = 2795) Catch JAYDE (test code = JAYDE) [facility] ID - tech Lab Interpretation Abnormal (test code = 98353-0) [facility]/ [id number] 07:01:05 Test Item Value Reference Range Interpretation Comments Color, UA (test code Yellow = 5778-6) Clarity, UA (test Clear code = 5767-9) Specific Telephone, UA >1.050 1.001-1.035 H (test code = 5811-5) pH, UA (test code = 9.0 5.0-8.0 H 5803-2) Protein, UA (test 70 mg/dL Negative A code = 11448-8) Glucose, UA (test Negative Negative code = 365) Ketones, UA (test Negative Negative code = 2514-8) Bilirubin, UA (test Negative Negative code = 83033-5) Blood, UA (test code Negative Negative = 08746-9) Nitrite, UA (test Negative Negative code = 5802-4) Leukocytes, UA (test Negative Negative code = 5799-2) Urobilinogen, UA 0.2 0.2-1.0 (test code = 89852-1) RBC, UA (test code = 2 See_Comment [Autom ated 61884-5) message] The system which generated this result [...] 4 See_Comment [Automate d (test code = 40736-9) messag e] The system which generated this result transmit ajay reference range : /HPF. The reference range was not used to interpret this result as normal/abnormal . Specimen Source (test Urine, Clean code = 2795) Catch JAYDE (test code = JAYDE) [facility] ID - tech Lab Interpretation Abnormal (test code = 87962-5) [facility] [id number] 07:01:05 Test Item Value Reference Range Interpretation Comments Color, UA (test code Yellow = 5778-6) Clarity, UA (test Clear code = 5767-9) Specific Telephone, UA >1.050 1.001-1.035 H (test code = 5811-5) pH, UA (test code = 9.0 5.0-8.0 H 5803-2) Protein, UA (test 70 mg/dL Negative A code = 54682-1) Glucose, UA (test Negative Negative code = 365) Ketones, UA (test Negative Negative code = 2514-8) Bilirubin, UA (test Negative Negative code = 19289-2) Blood, UA (test code Negative Negative = 68573-6) Nitrite, UA (test Negative Negative code = 5802-4) Leukocytes, UA (test Negative Negative code = 5799-2) Urobilinogen, UA 0.2 0.2-1.0 (test code = 96604-4) RBC, UA (test code = 2 See_Comment [Autom ated 92185-8) message] The system which generated this result [...] 4 See_Comment [Automate d (test code = 66685-1) messag e] The system which generated this result transmit ajay reference range : /HPF. The reference range was not used to interpret this result as normal/abnormal . Specimen Source (test Urine, Clean code = 2795) Catch JAYDE (test code = JAYDE) [facility] - tech Lab Interpretation Abnormal (test code = 57350-7) [facility] [id number] 07:01:05 Test Item Value Reference Range Interpretation Comments Color, UA (test code Yellow = 5778-6) Clarity, UA (test Clear code = 5767-9) Specific Telephone, UA >1.050 1.001-1.035 H (test code = 5811-5) pH, UA (test code = 9.0 5.0-8.0 H 5803-2) Protein, UA (test 70 mg/dL Negative A code = 19807-1) Glucose, UA (test Negative Negative code = 365) Ketones, UA (test Negative Negative code = 2514-8) Bilirubin, UA (test Negative Negative code = 80978-5) Blood, UA (test code Negative Negative = 13562-0) Nitrite, UA (test Negative Negative code = 5802-4) Leukocytes, UA (test Negative Negative code = 5799-2) Urobilinogen, UA 0.2 0.2-1.0 (test code = 04434-3) RBC, UA (test code = 2 See_Comment [Autom ated 75553-6) message] The system which generated this result [...] 4 See_Comment [Automate d (test code = 66134-9) messag e] The system which generated this result transmit ajay reference range : /HPF. The reference range was not used to interpret this result as normal/abnormal . Specimen Source (test Urine, Clean code = 2795) Catch JAYDE (test code = JAYDE) [facility] - tech Lab Interpretation Abnormal (test code = 01007-4) [facility] [id number] 07:01:05 Test Item Value Reference Range Interpretation Comments Color, UA (test code Yellow = 5778-6) Clarity, UA (test Clear code = 5767-9) Specific Telephone, UA >1.050 1.001-1.035 H (test code = 5811-5) pH, UA (test code = 9.0 5.0-8.0 H 5803-2) Protein, UA (test 70 mg/dL Negative A code = 03141-6) Glucose, UA (test Negative Negative code = 365) Ketones, UA (test Negative Negative code = 2514-8) Bilirubin, UA (test Negative Negative code = 83297-6) Blood, UA (test code Negative Negative = 91689-3) Nitrite, UA (test Negative Negative code = 5802-4) Leukocytes, UA (test Negative Negative code = 5799-2) Urobilinogen, UA 0.2 0.2-1.0 (test code = 24655-7) RBC, UA (test code = 2 See_Comment [Autom ated 89743-0) message] The system which generated this result [...] 4 See_Comment [Automate d (test code = 65853-8) messag e] The system which generated this result transmit ajay reference range : /HPF. The reference range was not used to interpret this result as normal/abnormal . Specimen Source (test Urine, Clean code = 2795) Catch JAYDE (test code = JAYDE) [facility] - tech Lab Interpretation Abnormal (test code = 71933-4) [facility] [id number] 07:01:05 Test Item Value Reference Range Interpretation Comments Color, UA (test code Yellow = 5778-6) Clarity, UA (test Clear code = 5767-9) Specific Telephone, UA >1.050 1.001-1.035 H (test code = 5811-5) pH, UA (test code = 9.0 5.0-8.0 H 5803-2) Protein, UA (test 70 mg/dL Negative A code = 33393-5) Glucose, UA (test Negative Negative code = 365) Ketones, UA (test Negative Negative code = 2514-8) Bilirubin, UA (test Negative Negative code = 25590-6) Blood, UA (test code Negative Negative = 67489-4) Nitrite, UA (test Negative Negative code = 5802-4) Leukocytes, UA (test Negative Negative code = 5799-2) Urobilinogen, UA 0.2 0.2-1.0 (test code = 73197-0) RBC, UA (test code = 2 See_Comment [Autom ated 42851-1) message] The system which generated this result [...] 4 See_Comment [Automate d (test code = 76630-5) messag e] The system which generated this result transmit ajay reference range : /HPF. The reference range was not used to interpret this result as normal/abnormal . Specimen Source (test Urine, Clean code = 2795) Catch JAYDE (test code = JAYDE) [facility] - tech Lab Interpretation Abnormal (test code = 77805-7) [facility] [id number] 07:01:05 Test Item Value Reference Range Interpretation Comments Color, UA (test code Yellow = 5778-6) Clarity, UA (test Clear code = 5767-9) Specific Telephone, UA >1.050 1.001-1.035 H (test code = 5811-5) pH, UA (test code = 9.0 5.0-8.0 H 5803-2) Protein, UA (test 70 mg/dL Negative A code = 60939-7) Glucose, UA (test Negative Negative code = 365) Ketones, UA (test Negative Negative code = 2514-8) Bilirubin, UA (test Negative Negative code = 55702-7) Blood, UA (test code Negative Negative = 57302-3) Nitrite, UA (test Negative Negative code = 5802-4) Leukocytes, UA (test Negative Negative code = 5799-2) Urobilinogen, UA 0.2 0.2-1.0 (test code = 93802-6) RBC, UA (test code = 2 See_Comment [Autom ated 42600-3) message] The system which generated this result [...] 4 See_Comment [Automate d (test code = 43623-3) messag e] The system which generated this result transmit ajay reference range : /HPF. The reference range was not used to interpret this result as normal/abnormal . Specimen Source (test Urine, Clean code = 2795) Catch JAYDE (test code = JAYDE) [facility] - tech Lab Interpretation Abnormal (test code = 05442-3) [facility] [id number] 07:01:05 Test Item Value Reference Range Interpretation Comments Color, UA (test code Yellow = 5778-6) Clarity, UA (test Clear code = 5767-9) Specific Telephone, UA 1.001-1.035 H (test code = 5811-5) pH, UA (test code = 9.0 5.0-8.0 H 5803-2) Protein, UA (test 70 mg/dL Negative A code = 37989-3) Glucose, UA (test Negative Negative code = 365) Ketones, UA (test Negative Negative code = 2514-8) Bilirubin, UA (test Negative Negative code = 01473-7) Blood, UA (test code Negative Negative = 51457-6) Nitrite, UA (test Negative Negative code = 5802-4) Leukocytes, UA (test Negative Negative code = 5799-2) Urobilinogen, UA 0.2 0.2-1.0 (test code = 62385-7) RBC, UA (test code = 2 See_Comment [Autom ated 31736-1) message] The system which generated this result [...] 4 See_Comment [Automate d (test code = 21792-2) messag e] The system which generated this result transmit ajay reference range : /HPF. The reference range was not used to interpret this result as normal/abnormal . Specimen Source (test Urine, Clean code = 2795) Catch JAYDE (test code = JAYDE) [facility] - tech Lab Interpretation Abnormal (test code = 77767-5) [facility] [id number] 07:01:05 Test Item Value Reference Range Interpretation Comments Color, UA (test code Yellow = 5778-6) Clarity, UA (test Clear code = 5767-9) Specific Telephone, UA 1.001-1.035 H (test code = 5811-5) pH, UA (test code = 9.0 5.0-8.0 H 5803-2) Protein, UA (test 70 mg/dL Negative A code = 56181-2) Glucose, UA (test Negative Negative code = 365) Ketones, UA (test Negative Negative code = 2514-8) Bilirubin, UA (test Negative Negative code = 79836-9) Blood, UA (test code Negative Negative = 23773-1) Nitrite, UA (test Negative Negative code = 5802-4) Leukocytes, UA (test Negative Negative code = 5799-2) Urobilinogen, UA 0.2 0.2-1.0 (test code = 07410-4) RBC, UA (test code = 2 See_Comment [Autom ated 55841-0) message] The system which generated this result transmit ajay reference range : /HPF. The reference range was not used to interpret this result as normal/abnormal . WBC, UA (test code = 1 See_Comment [Autom ated 5821-4) message] The system which generated this result transmit ajay reference range : /HPF. The reference range was not used to interpret this result as normal/abnormal . Sarah Richmond, UA 4 See_Comment [Automate d (test code = 04597-1) messag e] The system which generated this result transmit ajay reference range : /HPF. The reference range was not used to interpret this result as normal/abnormal . Specimen Source (test Urine, Clean code = 2795) Catch JAYDE (test code = JAYDE) [facility] - tech Lab Interpretation Abnormal (test code = 50728-5) [facility] [id number] 07:01:05 Test Item Value Reference Range Interpretation Comments Color, UA (test code Yellow = 5778-6) Clarity, UA (test Clear code = 5767-9) Specific Telephone, UA 1.001-1.035 H (test code = 5811-5) pH, UA (test code = 9.0 5.0-8.0 H 5803-2) Protein, UA (test 70 mg/dL Negative A code = 36919-3) Glucose, UA (test Negative Negative code = 365) Ketones, UA (test Negative Negative code = 2514-8) Bilirubin, UA (test Negative Negative code = 79030-3) Blood, UA (test code Negative Negative = 77183-3) Nitrite, UA (test Negative Negative code = 5802-4) Leukocytes, UA (test Negative Negative code = 5799-2) Urobilinogen, UA 0.2 0.2-1.0 (test code = 94449-5) RBC, UA (test code = 2 See_Comment [Autom ated 99155-8) message] The system which generated this result [...] 4 See_Comment [Automate d (test code = 61961-8) messag e] The system which generated this result transmit ajay reference range : /HPF. The reference range was not used to interpret this result as normal/abnormal . Specimen Source (test Urine, Clean code = 2795) Catch JAYDE (test code = JAYDE) [facility] - tech Lab Interpretation Abnormal (test code = 84674-1) [facility] [id number] 07:01:05 Test Item Value Reference Range Interpretation Comments Color, UA (test code Yellow = 5778-6) Clarity, UA (test Clear code = 5767-9) Specific Telephone, UA 1.001-1.035 H (test code = 5811-5) pH, UA (test code = 9.0 5.0-8.0 H 5803-2) Protein, UA (test 70 mg/dL Negative A code = 85180-4) Glucose, UA (test Negative Negative code = 365) Ketones, UA (test Negative Negative code = 2514-8) Bilirubin, UA (test Negative Negative code = 40265-1) Blood, UA (test code Negative Negative = 47407-4) Nitrite, UA (test Negative Negative code = 5802-4) Leukocytes, UA (test Negative Negative code = 5799-2) Urobilinogen, UA 0.2 0.2-1.0 (test code = 47987-3) RBC, UA (test code = 2 See_Comment [Autom ated 96372-4) message] The system which generated this result [...] 4 See_Comment [Automate d (test code = 63998-6) messag e] The system which generated this result transmit ajay reference range : /HPF. The reference range was not used to interpret this result as normal/abnormal . Specimen Source (test Urine, Clean code = 2795) Catch JAYDE (test code = JAYDE) [facility] - tech Lab Interpretation Abnormal (test code = 10978-8) [facility] [id number] 07:01:05 Test Item Value Reference Range Interpretation Comments Color, UA (test code Yellow = 5778-6) Clarity, UA (test Clear code = 5767-9) Specific Telephone, UA 1.001-1.035 H (test code = 5811-5) pH, UA (test code = 9.0 5.0-8.0 H 5803-2) Protein, UA (test 70 mg/dL Negative A code = 39520-2) Glucose, UA (test Negative Negative code = 365) Ketones, UA (test Negative Negative code = 2514-8) Bilirubin, UA (test Negative Negative code = 45324-3) Blood, UA (test code Negative Negative = 44574-5) Nitrite, UA (test Negative Negative code = 5802-4) Leukocytes, UA (test Negative Negative code = 5799-2) Urobilinogen, UA 0.2 0.2-1.0 (test code = 18062-6) RBC, UA (test code = 2 See_Comment [Autom ated 97685-0) message] The system which generated this result [...] 4 See_Comment [Automate d (test code = 22398-6) messag e] The system which generated this result transmit ajay reference range : /HPF. The reference range was not used to interpret this result as normal/abnormal . Specimen Source (test Urine, Clean code = 2795) Catch JAYDE (test code = JAYDE) [facility] - tech Lab Interpretation Abnormal (test code = 02746-7) [facility] [id number] 07:01:05 Test Item Value Reference Range Interpretation Comments Color, UA (test code Yellow = 5778-6) Clarity, UA (test Clear code = 5767-9) Specific Telephone, UA >1.050 1.001-1.035 H (test code = 5811-5) pH, UA (test code = 9.0 5.0-8.0 H 5803-2) Protein, UA (test 70 mg/dL Negative A code = 83876-5) Glucose, UA (test Negative Negative code = 365) Ketones, UA (test Negative Negative code = 2514-8) Bilirubin, UA (test Negative Negative code = 56298-9) Blood, UA (test code Negative Negative = 00331-9) Nitrite, UA (test Negative Negative code = 5802-4) Leukocytes, UA (test Negative Negative code = 5799-2) Urobilinogen, UA 0.2 0.2-1.0 (test code = 70054-0) RBC, UA (test code = 2 See_Comment [Autom ated 15850-5) message] The system which generated this result [...] 4 See_Comment [Automate d (test code = 63831-4) messag e] The system which generated this result transmit ajay reference range : /HPF. The reference range was not used to interpret this result as normal/abnormal . Specimen Source (test Urine, Clean code = 2795) Catch AJYDE (test code = JAYDE) [facility] - tech Lab Interpretation Abnormal (test code = 41370-6) [facility] [id number] 07:01:05 Test Item Value Reference Range Interpretation [...] (test code Urine, Clean Catch = 2795) [facility] - [id number] 06:54:51 Test Item Value Reference Range Interpretation Comments MAGNESIUM (BEAKER) (test code = 2.1 mg/dL 1.6-2.6 627) [facility] - BAN MBASIC METABOLIC [id number] 06:54:50 Test Item Value Reference Range Interpretation [...] not appl icable for dialysis patien ts [facility] - BAN MTSH/FREE T4 IF [id number] 06:50:48 Test Item Value Reference Range Interpretation Comments THYROID STIMULATING HORMONE 1.889 uIU/mL 0.350-4.940 (BEAKER) (test code = 772) [facility] - BAN MHIGH SENSITIVITY TROPONIN [id number] 06:31:22 Test Item Value Reference Range Interpretation Comments HIGH SENSITIVITY < pg/ml See_Comment [Automated message] TROPONIN I (test code = The system which [id number]) generated this result transmitted ref erence range: <=17. Th e reference range was not used to interpr et this result as normal/abnormal . [facility] - BAN MThe [employer]IUM [employer]LORITE OPERATOR STAT High Sensitivity Troponin-I results should be used in conjunction with other diagnostic information such as ECG, clinical observations and information, and patient symptoms to aid in the diagnosis of OR.CBC W/PLT COUNT & AUTO [id number] 06:05:36 Test Item Value Reference Range Interpretation [...] (test code = 2801) HIGH SENSITIVITY TROPONIN [id number] 22:00:49 Test Item Value Reference Range Interpretation Comments HIGH SENSITIVITY < pg/ml See_Comment [Automated message] TROPONIN I (test code = The system which [id number]) generated this result transmitted ref erence range: <=17. Th e reference range was not used to interpr et this result as normal/abnormal . [facility] - MITCHThe SODIUM CHLORITE OPERATOR STAT High Sensitivity Troponin-I results should be used in conjunction with other diagnostic information such as ECG, clinical observations and information, and patientsymptoms to aid in the diagnosis of OR. CTA, CHEST, ABDOMEN - PELVIS, FOR [id number] 21:55:00Unlisted Reason for Exam - Click Yes and Enter Reason Below->YesUnlisted Reason for Exam->Severe chest pain that radiates to the back [facility] : 1990 Sex: [...] MDReport Verified Date/Time: 09/17/2022 21:55:51 HCG, QUANTITATIVE, [id number] 19:18:36 Test Item Value Reference Range Interpretation Comments GONADOTROPIN, CHORIONIC (HCG) QUANT < mIU/mL 0-10 (ANA) (test code = 649) Non- Females: <10 mIU/mL Females: Gestation Age Reference Range(mIU/mL) 0.2-1 Week 5-50 1-2 Weeks 50-500 2-3 Weeks 100-5,000 3-4 Weeks 500-10,000 4-5 Weeks 1,000-50,000 5-6 Weeks 10,000-100,000 6-8 Weeks 15,000- 200,000 2-3 Months 10,000-100,000 [facility] - LAVONRS-CoV2/RT-PCR (Asymptomatic ONLY)2022-09-17 17:05:31 Test Item Value Reference Interpretation Comments Range SARS-COV2/RT-PCR Negative Negative The SARS-Co V-2 (test code = target nucleic 02854-0) acids are not detected in thi s [...] revoked sooner. Fact Sheet for Healthcare Providers: https://www.[employer].Razz/Documents/Xp ert%20Xpress%20SAR S%20CoV-2/Fact%20S heets/3023802%20S ARS-COV-2%20HEALTH CARE%20PROVIDERS%2 0FACT%20SHEET.pdf Fact Sheet for Healthcare Patients: https://www.[employer]/Documents/Xp ert%20Xpress%20SAR S%20CoV-2/Fact%20S heets/302-3801%20S ARS-COV-2%20PATIEN T%20FACT%20SHEET.p df Lab Interpretation Normal (test code = 74198-9) [facility]2022-09-17 17:05:31 Test Item Value Reference Interpretation Comments Range SARS-COV2/RT-PCR Negative Negative The SARS-Co V-2 (test code = target nucleic 34028-9) acids are not detected in thi s [...] revoked sooner. Fact Sheet for Healthcare Providers: https://www.[employer]/Documents/Xp ert%20Xpress%20SAR S%20CoV-2/Fact%20S heets/3023802%20S ARS-COV-2%20HEALTH CARE%20PROVIDERS%2 0FACT%20SHEET.pdf Fact Sheet for Healthcare Patients: https://www.[employer]/Documents/Xp ert%20Xpress%20SAR S%20CoV-2/Fact%20S heets/302-3801%20S ARS-COV-2%20PATIEN T%20FACT%20SHEET.p df Lab Interpretation Normal (test code = 03688-4) [facility]2022-09-17 17:05:31 Test Item Value Reference Interpretation Comments Range SARS-COV2/RT-PCR Negative Negative The SARS-Co V-2 (test code = target nucleic 76957-2) acids are not detected in thi s [...] revoked sooner. Fact Sheet for Healthcare Providers: https://www.[employer]/Documents/Xp ert%20Xpress%20SAR S%20CoV-2/Fact%20S heets/302-3802%20S ARS-COV-2%20HEALTH CARE%20PROVIDERS%2 0FACT%20SHEET.pdf Fact Sheet for Healthcare Patients: https://www.[employer]/Documents/Xp ert%20Xpress%20SAR S%20CoV-2/Fact%20S heets/302-3801%20S ARS-COV-2%20PATIEN T%20FACT%20SHEET.p df Lab Interpretation Normal (test code = 31901-3) [facility]2022-09-17 17:05:31 Test Item Value Reference Interpretation Comments Range SARS-COV2/RT-PCR Negative Negative The SARS-Co V-2 (test code = target nucleic 08909-1) acids are not detected in thi s [...] revoked sooner. Fact Sheet for Healthcare Providers: https://www.[employer]/Documents/Xp ert%20Xpress%20SAR S%20CoV-2/Fact%20S heets/302-3802%20S ARS-COV-2%20HEALTH CARE%20PROVIDERS%2 0FACT%20SHEET.pdf Fact Sheet for Healthcare Patients: https://www.[employer]/Documents/Xp ert%20Xpress%20SAR S%20CoV-2/Fact%20S heets/302-3801%20S ARS-COV-2%20PATIEN T%20FACT%20SHEET.p df Lab Interpretation Normal (test code = 64817-4) [facility]2022-09-17 17:05:31 Test Item Value Reference Interpretation Comments Range SARS-COV2/RT-PCR Negative Negative The SARS-Co V-2 (test code = target nucleic 52819-6) acids are not detected in thi s [...] revoked sooner. Fact Sheet for Healthcare Providers: https://www.[employer]/Documents/Xp ert%20Xpress%20SAR S%20CoV-2/Fact%20S heets/3023802%20S ARS-COV-2%20HEALTH CARE%20PROVIDERS%2 0FACT%20SHEET.pdf Fact Sheet for Healthcare Patients: https://www.[employer]/Documents/Xp ert%20Xpress%20SAR S%20CoV-2/Fact%20S heets/3023801%20S ARS-COV-2%20PATIEN T%20FACT%20SHEET.p df Lab Interpretation Normal (test code = 10208-4) [facility]2022-09-17 17:05:31 Test Item Value Reference Interpretation Comments Range SARS-COV2/RT-PCR Negative Negative The SARS-Co V-2 (test code = target nucleic 70469-4) acids are not detected in thi s [...] revoked sooner. Fact Sheet for Healthcare Providers: https://www.[employer]/Documents/Xp ert%20Xpress%20SAR S%20CoV-2/Fact%20S heets/302-3802%20S ARS-COV-2%20HEALTH CARE%20PROVIDERS%2 0FACT%20SHEET.pdf Fact Sheet for Healthcare Patients: https://www.[employer]/Documents/Xp ert%20Xpress%20SAR S%20CoV-2/Fact%20S heets/302-3801%20S ARS-COV-2%20PATIEN T%20FACT%20SHEET.p df Lab Interpretation Normal (test code = 97118-4) [facility]2022-09-17 17:05:31 Test Item Value Reference Interpretation Comments Range SARS-COV2/RT-PCR Negative Negative The SARS-Co V-2 (test code = target nucleic 22285-5) acids are not detected in thi s [...] revoked sooner. Fact Sheet for Healthcare Providers: https://www.[employer]/Documents/Xp ert%20Xpress%20SAR S%20CoV-2/Fact%20S heets/302-3802%20S ARS-COV-2%20HEALTH CARE%20PROVIDERS%2 0FACT%20SHEET.pdf Fact Sheet for Healthcare Patients: https://www.[employer]/Documents/Xp ert%20Xpress%20SAR S%20CoV-2/Fact%20S heets/302-3801%20S ARS-COV-2%20PATIEN T%20FACT%20SHEET.p df Lab Interpretation Normal (test code = 83957-7) [facility]2022-09-17 17:05:31 Test Item Value Reference Interpretation Comments Range SARS-COV2/RT-PCR Negative Negative The SARS-Co V-2 (test code = target nucleic 35634-2) acids are not detected in thi s [...] revoked sooner. Fact Sheet for Healthcare Providers: https://www.[employer]/Documents/Xp ert%20Xpress%20SAR S%20CoV-2/Fact%20S heets/302-3802%20S ARS-COV-2%20HEALTH CARE%20PROVIDERS%2 0FACT%20SHEET.pdf Fact Sheet for Healthcare Patients: https://www.[employer]/Documents/Xp ert%20Xpress%20SAR S%20CoV-2/Fact%20S heets/302-3801%20S ARS-COV-2%20PATIEN T%20FACT%20SHEET.p df Lab Interpretation Normal (test code = 08908-7) [facility]2022-09-17 17:05:31 Test Item Value Reference Interpretation Comments Range SARS-COV2/RT-PCR Negative Negative The SARS-Co V-2 (test code = target nucleic 05307-6) acids are not detected in thi s [...] revoked sooner. Fact Sheet for Healthcare Providers: https://www.[employer]/Documents/Xp ert%20Xpress%20SAR S%20CoV-2/Fact%20S heets/302-3802%20S ARS-COV-2%20HEALTH CARE%20PROVIDERS%2 0FACT%20SHEET.pdf Fact Sheet for Healthcare Patients: https://www.[employer]/Documents/Xp ert%20Xpress%20SAR S%20CoV-2/Fact%20S heets/302-3801%20S ARS-COV-2%20PATIEN T%20FACT%20SHEET.p df Lab Interpretation Normal (test code = 66445-6) [facility]2022-09-17 17:05:31 Test Item Value Reference Interpretation Comments Range SARS-COV2/RT-PCR Negative Negative The SARS-Co V-2 (test code = target nucleic 10553-0) acids are not detected in thi s [...] revoked sooner. Fact Sheet for Healthcare Providers: https://www.[employer]/Documents/Xp ert%20Xpress%20SAR S%20CoV-2/Fact%20S heets/302-3802%20S ARS-COV-2%20HEALTH CARE%20PROVIDERS%2 0FACT%20SHEET.pdf Fact Sheet for Healthcare Patients: https://www.[employer]/Documents/Xp ert%20Xpress%20SAR S%20CoV-2/Fact%20S heets/302-3801%20S ARS-COV-2%20PATIEN T%20FACT%20SHEET.p df Lab Interpretation Normal (test code = 81445-9) [facility]2022-09-17 17:05:31 Test Item Value Reference Interpretation Comments Range SARS-COV2/RT-PCR Negative Negative The SARS-Co V-2 (test code = target nucleic 22927-4) acids are not detected in thi s [...] revoked sooner. Fact Sheet for Healthcare Providers: https://www.[employer]/Documents/Xp ert%20Xpress%20SAR S%20CoV-2/Fact%20S heets/302-3802%20S ARS-COV-2%20HEALTH CARE%20PROVIDERS%2 0FACT%20SHEET.pdf Fact Sheet for Healthcare Patients: https://wwwFirstString/Documents/Xp ert%20Xpress%20SAR S%20CoV-2/Fact%20S heets/302-3801%20S ARS-COV-2%20PATIEN T%20FACT%20SHEET.p df Lab Interpretation Normal (test code = 74890-6) [facility]2022-09-17 17:05:31 Test Item Value Reference Interpretation Comments Range SARS-COV2/RT-PCR Negative Negative The SARS-Co V-2 (test code = target nucleic 17580-8) acids are not detected in thi s [...] revoked sooner. Fact Sheet for Healthcare Providers: https://www.[employer]/Documents/Xp ert%20Xpress%20SAR S%20CoV-2/Fact%20S heets/302-3802%20S ARS-COV-2%20HEALTH CARE%20PROVIDERS%2 0FACT%20SHEET.pdf Fact Sheet for Healthcare Patients: https://www.[employer]/Documents/Xp ert%20Xpress%20SAR S%20CoV-2/Fact%20S heets/302-3801%20S ARS-COV-2%20PATIEN T%20FACT%20SHEET.p df Lab Interpretation Normal (test code = 45894-3) [facility]2022-09-17 17:05:31 Test Item Value Reference Interpretation Comments Range SARS-COV2/RT-PCR Negative Negative The SARS-Co V-2 (test code = target nucleic 50273-4) acids are not detected in thi s [...] revoked sooner. Fact Sheet for Healthcare Providers: https://www.[employer]/Documents/Xp ert%20Xpress%20SAR S%20CoV-2/Fact%20S heets/302-3802%20S ARS-COV-2%20HEALTH CARE%20PROVIDERS%2 0FACT%20SHEET.pdf Fact Sheet for Healthcare Patients: https://wwwFirstString/Documents/Xp ert%20Xpress%20SAR S%20CoV-2/Fact%20S heets/302-3801%20S ARS-COV-2%20PATIEN T%20FACT%20SHEET.p df Lab Interpretation Normal (test code = 53615-4) [facility]22-09-17 17:05:31 Test Item Value Reference Interpretation Comments Range SARS-COV2/RT-PCR Negative Negative The SARS-Co V-2 (test code = target nucleic 10309-3) acids are not detected in thi s [...] revoked sooner. Fact Sheet for Healthcare Providers: https://www.ComputeNext/Documents/Xp ert%20Xpress%20SAR S%20CoV-2/Fact%20S heets/302-3802%20S ARS-COV-2%20HEALTH CARE%20PROVIDERS%2 0FACT%20SHEET.pdf Fact Sheet for Healthcare Patients: https://www.ComputeNext/Documents/Xp ert%20Xpress%20SAR S%20CoV-2/Fact%20S heets/302-3801%20S ARS-COV-2%20PATIEN T%20FACT%20SHEET.p df Lab Interpretation Normal (test code = 20724-0) [facility]2022-09-17 17:05:31 Test Item Value Reference Interpretation Comments Range SARS-COV2/RT-PCR Negative Negative The SARS-Co V-2 (test code = target nucleic 99902-2) acids are not detected in thi s [...] revoked sooner. Fact Sheet for Healthcare Providers: https://www.ComputeNext/Documents/Xp ert%20Xpress%20SAR S%20CoV-2/Fact%20S heets/302-3802%20S ARS-COV-2%20HEALTH CARE%20PROVIDERS%2 0FACT%20SHEET.pdf Fact Sheet for Healthcare Patients: https://www.ComputeNext/Documents/Xp ert%20Xpress%20SAR S%20CoV-2/Fact%20S heets/302-3801%20S ARS-COV-2%20PATIEN T%20FACT%20SHEET.p df Lab Interpretation Normal (test code = 89353-9) [facility]2022-09-17 17:05:31 Test Item Value Reference Interpretation Comments Range SARS-COV2/RT-PCR Negative Negative The SARS-Co V-2 (test code = target nucleic 12780-9) acids are not detected in thi s [...] revoked sooner. Fact Sheet for Healthcare Providers: https://www.ComputeNext/Documents/Xp ert%20Xpress%20SAR S%20CoV-2/Fact%20S heets/302-3802%20S ARS-COV-2%20HEALTH CARE%20PROVIDERS%2 0FACT%20SHEET.pdf Fact Sheet for Healthcare Patients: https://www.ComputeNext/Documents/Xp ert%20Xpress%20SAR S%20CoV-2/Fact%20S heets/302-3801%20S ARS-COV-2%20PATIEN T%20FACT%20SHEET.p df Lab Interpretation Normal (test code = 46592-8) [facility])2022-09-17 17:05:31 Test Item Value Reference Range Interpretation Comments SARS-COV2/RT-PCR Negative Negative The SARS-Co V-2 target (test code = nucleic acids a re not 1177328) detected in thi s specimen. Negative result [...] revoked sooner. Fact Sheet for Healthcare Providers: https://www.Eye-Fi m/Documents/Xpert%20Xpress%20SARS%20CoV-2/Fact%20Sheets/302-3802%33XREE-KTV-5%20 HEALTHCARE%20PROVIDERS%20FACT%20SHEET.pdf Fact Sheet for Healthcare Patients: https://www.[employer]/Documents/Xpert%20Xp ress%20SARS%20CoV-2/Fact%20Sheets/302-3801%41NRHI-PJG-9%20PATIENT%20FACT%20SHEET .pdfURINALYSIS W/ [id number] 16:55:30 Test Item Value Reference Range Interpretation [...] (test code Urine, Clean Catch = 2795) Vegetable Scullion ID - [auto]Vegetable Scull[place] ID - techB-TYPE NATRIURETIC FACTOR (BNP)2022-09-17 16:53:49 Test Item Value Reference Range Interpretation Comments B-TYPE NATRIURETIC PEPTIDE (BEAKER) < pg/mL 0-100 (test code = 700) Vegetable [place] ID - MITCHHIGH SENSITIVITY TROPONIN [id number] 16:50:10 Test Item Value Reference Range Interpretation Comments HIGH SENSITIVITY < pg/ml See_Comment [Automated message] TROPONIN I (test code = The system which 3178331) generated this result transmitted ref erence range: <=17. Th e reference range was not used to interpr et this result as normal/abnormal . Vegetable Scullion ID - MITCHThe SODIUM CHLORITE OPERATOR STAT High Sensitivity Troponin-I results should be used in conjunction with other diagnostic information such as ECG, clinical observations and information, and patientsymptoms to aid in the diagnosis of OR. COMPREHENSIVE METABOLIC [id number] 16:46:05 Test Item Value Reference Range Interpretation [...] not appl icable for dialysis patien ts Vegetable Scullion ID - MITCHLACTIC ACID, [id number] 16:29:26 Test Item Value Reference Range Interpretation Comments LACTATE BLOOD VENOUS (2) (BEAKER) 1.86 mmol/L 0.50-2.20 (test code = 2872) Vegetable Scullion ID - BAN MCBC W/PLT COUNT & AUTO [id number] 16:21:12 Test Item Value Reference Range Interpretation [...] (test code = 2801) RAD, CHEST, 2 [id number] 14:55:00Reason for exam:->SHORTNESS OF BREATHReason for exam:->[facility] : 1990 Sex: FFINAL REPORT INDICATION: SHORTNESS OF BREATHCHEST PAIN COMPARISON: None TECHNIQUE: AP and lateral view of the chest. FINDINGS: Lungs and pleura: Clear lungs. No effusion.Heart and mediastinum: Normal heart size. Unremarkable mediastinal contours.Osseous structures: No acute abnormality.Other: None. IMPRESSION: No acute intrathoracic abnormality. Signed: Joanna Moser MDReport Verified Date/Time: 09/17/2022 14:55:44 Reading Location: [address] Reading Room CULTURE, [id number] 00:00:00 Test Item Value Reference Range Interpretation Comments CULTURE, URINE (test SPECIMEN NUMBER: code = 90636) [id number] CULTURE, [id number] 00:00:00 Test Item Value Reference Range Interpretation Comments CULTURE, URINE (test SPECIMEN NUMBER: code = 14923) [id number] CULTURE, [id number] 00:00:00 Test Item Value Reference Range Interpretation Comments CULTURE, URINE (test SPECIMEN NUMBER: code = 32748) [id number] CULTURE, [id number] 00:00:00 Test Item Value Reference Range Interpretation Comments CULTURE, URINE (test SPECIMEN NUMBER: code = 53845) [id number] JOSE CARLOS [id number] 00:00:00 Test Item Value Reference Range Interpretation Comments ANTI-NUCLEAR ANTIBODIES (test NEGATIVE code = 3506) JOSE CARLOS PATTERN (REPORTED SEE BELOW TITER) (test code = 76174) HOMOGENEOUS (test code = NEGATIVE TITER 42615) SPECKLED (test code = 913464) NEGATIVE TITER DENSE FINE SPECKLED (test code NEGATIVE TITER = 48640) CENTROMERE (test code = NEGATIVE TITER 656745) COARSE SPECKLED (test code = NEGATIVE TITER 149425) DISCRETE NUCLEAR DOTS (test NEGATIVE TITER code = 569160) NUCLEOLAR (test code = 105955) NEGATIVE TITER NUCLEAR MEMBRANE (test code = NEGATIVE TITER 585734) CYTO. RETICULAR (RAMANDEEP) (test NEGATIVE code = 557873) COMMENTS (test code = 370886) NONE METHOD (test code = 28324) (NOTE) JOSE CARLOS [id number] 00:00:00 Test Item Value Reference Range Interpretation Comments ANTI-NUCLEAR ANTIBODIES (test NEGATIVE code = 3506) JOSE CARLOS PATTERN (REPORTED SEE BELOW TITER) (test code = 44378) HOMOGENEOUS (test code = NEGATIVE TITER 27834) SPECKLED (test code = 024211) NEGATIVE TITER DENSE FINE SPECKLED (test code NEGATIVE TITER = 18055) CENTROMERE (test code = NEGATIVE TITER 554797) COARSE SPECKLED (test code = NEGATIVE TITER 798310) DISCRETE NUCLEAR DOTS (test NEGATIVE TITER code = 603157) NUCLEOLAR (test code = 380065) NEGATIVE TITER NUCLEAR MEMBRANE (test code = NEGATIVE TITER 846724) CYTO. RETICULAR (RAMANDEEP) (test NEGATIVE code = 841752) COMMENTS (test code = 484308) NONE METHOD (test code = 46541) (NOTE) JOSE CARLOS [id number] 00:00:00 Test Item Value Reference Range Interpretation Comments ANTI-NUCLEAR ANTIBODIES (test NEGATIVE code = 3506) JOSE CARLOS PATTERN (REPORTED SEE BELOW TITER) (test code = 75448) HOMOGENEOUS (test code = NEGATIVE TITER 03883) SPECKLED (test code = 055173) NEGATIVE TITER DENSE FINE SPECKLED (test code NEGATIVE TITER = 45703) CENTROMERE (test code = NEGATIVE TITER 948355) COARSE SPECKLED (test code = NEGATIVE TITER 399491) DISCRETE NUCLEAR DOTS (test NEGATIVE TITER code = 180642) NUCLEOLAR (test code = 465290) NEGATIVE TITER NUCLEAR MEMBRANE (test code = NEGATIVE TITER 291173) CYTO. RETICULAR (RAMANDEEP) (test NEGATIVE code = 188153) COMMENTS (test code = 112140) NONE METHOD (test code = 17071) (NOTE) JOSE CARLOS [id number] 00:00:00 Test Item Value Reference Range Interpretation Comments ANTI-NUCLEAR ANTIBODIES (test NEGATIVE code = 3506) JOSE CARLOS PATTERN (REPORTED SEE BELOW TITER) (test code = 73112) HOMOGENEOUS (test code = NEGATIVE TITER 53134) SPECKLED (test code = 804541) NEGATIVE TITER DENSE FINE SPECKLED (test code NEGATIVE TITER = 83396) CENTROMERE (test code = NEGATIVE TITER 895866) COARSE SPECKLED (test code = NEGATIVE TITER 714944) DISCRETE NUCLEAR DOTS (test NEGATIVE TITER code = 738889) NUCLEOLAR (test code = 431777) NEGATIVE TITER NUCLEAR MEMBRANE (test code = NEGATIVE TITER 651641) CYTO. RETICULAR (RAMANDEEP) (test NEGATIVE code = 015846) COMMENTS (test code = 888987) NONE METHOD (test code = 56562) (NOTE) RHEUMATOID FACTOR, [id number] 00:00:00 Test Item Value Reference Range Interpretation Comments RHEUMATOID FACTOR, QUANT (test code 11 IU/ML = 3502) RHEUMATOID FACTOR, [id number] 00:00:00 Test Item Value Reference Range Interpretation Comments RHEUMATOID FACTOR, QUANT (test code 11 IU/ML = 3502) RHEUMATOID FACTOR, [id number] 00:00:00 Test Item Value Reference Range Interpretation Comments RHEUMATOID FACTOR, QUANT (test code 11 IU/ML = 3502) C-REACTIVE [id number] 00:00:00 Test Item Value Reference Range Interpretation Comments C-REACTIVE PROTEIN (test code = 0.5 MG/DL 3513) C-REACTIVE [id number] 00:00:00 Test Item Value Reference Range Interpretation Comments C-REACTIVE PROTEIN (test code = 0.5 MG/DL 3513) SEDIMENTATION [id number] 00:00:00 Test Item Value Reference Range Interpretation Comments SEDIMENTATION RATE (test code = 23 MM/HOUR 1017) SEDIMENTATION [id number] 00:00:00 Test Item Value Reference Range Interpretation Comments SEDIMENTATION RATE (test code = 23 MM/HOUR 1017) CCP [id number] 00:00:00 Test Item Value Reference Range Interpretation Comments CCP IgG (test code = 12636) <0.5 U/ML CCP [id number] 00:00:00 Test Item Value Reference Range Interpretation Comments CCP IgG (test code = 97189) <0.5 U/ML CCP [id number] 00:00:00 Test Item Value Reference Range Interpretation Comments CCP IgG (test code = 13947) <0.5 U/ML COMPREHENSIVE METABOLIC [id number] 00:00:00 Test Item Value Reference Range Interpretation Comments GLUCOSE (test code = 2217) 88 MG/DL BUN (test code = 2208) 14 MG/DL CREATININE (test code = 2214) 0.70 MG/DL eGFR (2020 CKD-EPI) (test 117 ML/MIN/1.73 code = 77244) CALC BUN/CREAT (test code = 20 RATIO [...] A/G RATIO (test code = 1.4 RATIO 4) BILIRUBIN, TOTAL (test code = 0.2 MG/DL 2206) ALKALINE PHOSPHATASE (test 122 U/L code = 2204) AST (test code = 2218) 19 U/L ALT (test code = 2219) 24 U/L COMPREHENSIVE METABOLIC [id number] 00:00:00 Test Item Value Reference Range Interpretation Comments GLUCOSE (test code = 2217) 88 MG/DL BUN (test code = 2208) 14 MG/DL CREATININE (test code = 2214) 0.70 MG/DL eGFR (2020 CKD-EPI) (test 117 ML/MIN/1.73 code = 64488) CALC BUN/CREAT (test code = 20 RATIO [...] ALT (test code = 2219) 24 U/L [id number] 00:00:00 Test Item Value Reference Range Interpretation Comments TSH, THIRD GENERATION (test code 1.670 UIU/ML = 2821) [id number] 00:00:00 Test Item Value Reference Range Interpretation Comments TSH, THIRD GENERATION (test code 1.670 UIU/ML = 2821) [id number] 00:00:00 Test Item Value Reference Range Interpretation Comments TSH, THIRD GENERATION (test code 1.670 UIU/ML = 2821) LIPID [id number] 00:00:00 Test Item Value Reference Range Interpretation Comments CHOLESTEROL (test code = 2210) 132 MG/DL TRIGLYCERIDES (test code = 2232) 105 MG/DL HDL CHOLESTEROL (test code = 2220) 33 MG/DL CALC LDL CHOL (test code = 2237) 80 MG/DL RISK RATIO LDL/HDL (test code = 2.42 RATIO 8) LIPID [id number] 00:00:00 Test Item Value Reference Range Interpretation Comments CHOLESTEROL (test code = 2210) 132 MG/DL TRIGLYCERIDES (test code = 2232) 105 MG/DL HDL CHOLESTEROL (test code = 2220) 33 MG/DL CALC LDL CHOL (test code = 2237) 80 MG/DL RISK RATIO LDL/HDL (test code = 2.42 RATIO 2238) RHEUMATOID FACTOR, [id number] 00:00:00 Test Item Value Reference Range Interpretation Comments RHEUMATOID FACTOR, QUANT (test code 11 IU/ML = 3502) RHEUMATOID FACTOR, [id number] 00:00:00 Test Item Value Reference Range Interpretation Comments RHEUMATOID FACTOR, QUANT (test code 11 IU/ML = 3502) RHEUMATOID FACTOR, [id number] 00:00:00 Test Item Value Reference Range Interpretation Comments RHEUMATOID FACTOR, QUANT (test code 11 IU/ML = 3502) C-REACTIVE [id number] 00:00:00 Test Item Value Reference Range Interpretation Comments C-REACTIVE PROTEIN (test code = 0.5 MG/DL 3513) C-REACTIVE [id number] 00:00:00 Test Item Value Reference Range Interpretation Comments C-REACTIVE PROTEIN (test code = 0.5 MG/DL 3513) SEDIMENTATION [id number] 00:00:00 Test Item Value Reference Range Interpretation Comments SEDIMENTATION RATE (test code = 23 MM/HOUR 1017) SEDIMENTATION [id number] 00:00:00 Test Item Value Reference Range Interpretation Comments SEDIMENTATION RATE (test code = 23 MM/HOUR 1017) CCP [id number] 00:00:00 Test Item Value Reference Range Interpretation Comments CCP IgG (test code = 59762) <0.5 U/ML CCP [id number] 00:00:00 Test Item Value Reference Range Interpretation Comments CCP IgG (test code = 74396) <0.5 U/ML CCP [id number] 00:00:00 Test Item Value Reference Range Interpretation Comments CCP IgG (test code = 46954) <0.5 U/ML COMPREHENSIVE METABOLIC [id number] 00:00:00 Test Item Value Reference Range Interpretation Comments GLUCOSE (test code = 2217) 88 MG/DL BUN (test code = 2208) 14 MG/DL CREATININE (test code = 2214) 0.70 MG/DL eGFR (2020 CKD-EPI) (test 117 ML/MIN/1.73 code = 12398) CALC BUN/CREAT (test code = 20 RATIO [...] ALKALINE PHOSPHATASE (test 122 U/L code = 220) AST (test code = 2218) 19 U/L ALT (test code = 2219) 24 U/L COMPREHENSIVE METABOLIC [id number] 00:00:00 Test Item Value Reference Range Interpretation Comments GLUCOSE (test code = 2217) 88 MG/DL BUN (test code = 2208) 14 MG/DL CREATININE (test code = 2214) 0.70 MG/DL eGFR (2020 CKD-EPI) (test 117 ML/MIN/1.73 code = 72440) CALC BUN/CREAT (test code = 20 RATIO 2235) SODIUM (test code = 2231) 142 MEQ/L POTASSIUM (test code = 2228) 4.2 MEQ/L CHLORIDE (test code = 2215) 104 MEQ/L CARBON DIOXIDE (test code = 25 MEQ/L 2205) CALCIUM (test code = 2209) 9.2 MG/DL PROTEIN, TOTAL (test code = 6.6 G/DL 9) ALBUMIN (test code = 2201) 3.9 G/DL CALC GLOBULIN (test code = 2.7 G/DL 2240) CALC A/G RATIO (test code = 1.4 RATIO 2234) BILIRUBIN, TOTAL (test code = 0.2 MG/DL 2206) ALKALINE PHOSPHATASE (test 122 U/L code = 2204) AST (test code = 2218) 19 U/L ALT (test code = 2219) 24 U/L [id number] 00:00:00 Test Item Value Reference Range Interpretation Comments TSH, THIRD GENERATION (test code 1.670 UIU/ML = 2821) [id number] 00:00:00 Test Item Value Reference Range Interpretation Comments TSH, THIRD GENERATION (test code 1.670 UIU/ML = 2821) [id number] 00:00:00 Test Item Value Reference Range Interpretation Comments TSH, THIRD GENERATION (test code 1.670 UIU/ML = 2821) LIPID [id number] 00:00:00 Test Item Value Reference Range Interpretation Comments CHOLESTEROL (test code = 2210) 132 MG/DL TRIGLYCERIDES (test code = 2232) 105 MG/DL HDL CHOLESTEROL (test code = 2220) 33 MG/DL CALC LDL CHOL (test code = 2237) 80 MG/DL RISK RATIO LDL/HDL (test code = 2.42 RATIO 2238) LIPID [id number] 00:00:00 Test Item Value Reference Range Interpretation Comments CHOLESTEROL (test code = 2210) 132 MG/DL TRIGLYCERIDES (test code = 2232) 105 MG/DL HDL CHOLESTEROL (test code = 2220) 33 MG/DL CALC LDL CHOL (test code = 2237) 80 MG/DL RISK RATIO LDL/HDL (test code = 2.42 RATIO 2238) DRUGS OF ABUSE SCREEN [id number] 22:06:00 Test Item Value Reference Range Interpretation [...] (test code = TRICYCU) Neg NEGATIVE HCG [id number] 22:02:00 Test Item Value Reference Range Interpretation [...] after 48 hours toconfirm . URINALYSIS DIPSTICK [id number] 21:55:00 Test Item Value Reference Range Interpretation [...] code = LEUU) - XR CHEST 1 [id number] 21:55:00 [facility] 1990 Sex: FPatient Name: CAROLINE DURAND Unit No: [id number] EXAMS: CPT: [id number] XR CHEST 1 V 83705 PA CHEST, 03/26/2022. Comparison: None. CLINICAL: Chest pain. COMMENT: The heart, mediastinum, hilar regions and pulmonary vasculature appear within normal limits. The lungs are free of active disease. The bony thorax is intact. IMPRESSION: No evidence to suggest active cardiopulmonary disease. at 2154 Reported and signed by: Dav Orellana MD CC: Dav Crook MDTechnologist: MARIBEL LOCKHART Trscr Dt/Tm: 03/26/2022 (2154) by:[email or web address] Orig Print D/T: S: 0 03/26/2022 (2157) BATCH NO: N/A Name: CAROLINE DURAND [facility] Emergency Dept Phys: [place] [id number] [facility] : 1990 Age: 31 Sex: F [place] [id number] Loc: DOUG Exam Date: 03/26/2022 Status: PRE ER PH: [phone] FAX: PAGE 1 Signed ReportCBC W/AUTO [id number] 21:50:00 Test Item Value Reference Range Interpretation [...] 0.9 10e3/mm3 0.2-1.1 N MX#) TROPONIN I [id number] 21:49:00 Test Item Value Reference Range Interpretation Comments TROPONIN I RAPID 0.01 ng/mL 0.00-0.08 N ISTAT TROP ONIN I (test code = CRITERIA0.00-0. 08 ng/mL - TROPIRAP) Negative>0.08 n g/mL - Positive The us e of serial sampling and te sting protocol is are commended practice.An johny vated troponin level alone is often not suffi cient fordiagnosis of myocardial infarction. Tro arnaldo results obtaine d by different assay s may vary.Evaluation of the extent of myoca rdial damage based on increase of troponin would be valid only if similar methodology is used. CHEMISTRY 8 [id number] 21:48:00 Test Item Value Reference Range Interpretation [...] POC 83 >60 (test code = GFRP) Notes Date/Time Note Provider Source 2022-03-26 22:31:00-00:00 [facility] [place] ([place]) EMERGENCY PROVIDER REPORT REPORT#:[id number] REPORT STATUS: Signed DATE:03/26/22 TIME: 2230 PATIENT: CAROLINE DURAND UNIT #: [id number] ROOM: BED: AGE: 31 SEX: F PCP PHYS: Undefined Provider SERVICE AUTHOR: Dav Crook MD * ALL edits or amendments must be made on the [employer]ee[employer]/computer document * HPI-Chest Pain Under 40 Free Text HPI Notes Free Text HPI Notes 31-year-old female presents emergency department with chest discomfort since this morning. General Confirmed Patient Yes Patient Type New patient Initial Greet Date/Time 03/26/222123 Presentation Chief Complaint Chest pain Hx Obtained From Patient Sudden in Onset? No Onset Occurred Today Symptom Duration Brief Progression since Onset Constant )( Migration/Movement None Risk-Chest Pain Under 40 Risk Stratification )( Coronary Artery Disease Risk factors reviewed , Risk factors N/A )( Pulmonary Embolism Risk factors reviewed, Ris k factors N/A )( AMI-Aspirin Aspirin Last 24 Hrs None, Not indicated )( HEART for MACE )( HEART for MACE Response Value History Low index of suspicion 0 ECG Interpretation Normal ECG 0 Age Age under 45 0 Risk Factors for CAD No risk factors known 0 Troponin < or = to NL troponin 0 Total 0 HEART Score for MACE 0-3 (low risk 0.9%-1.7%) Review of Systems ROS Statements All systems rev neg except as marked. Past Medical History - Adult Stated Complaint CHEST PAIN Allergies Coded Allergies: Penicillins (Severe, RASH 03/26/22) promethazine (From PHENERGAN) (Severe, RASH 03/05 01/23) Calculated Suicide Risk (nurs) No risk Past Medical History: Reports: Alcoholism/subst abuse, Atrial fibrillation, Coronary artery disease, Depression/mood disorder, Hypertension, Transien t ischemic attack. Alcohol Use In recovery Smoking status: Smoking status for patients 13 years old or old er: Unknown,if ever smoked Physical Exam Vital Signs Vital Signs First Documented: Result Date Time Pulse Ox 98 03/26 2158 Temp 98.2 03/26 2158 Pulse 84 03/26 2158 Resp 03/26 Last Documented: Result Date Time Pulse Ox 98 03/26 2158 Temp 98.2 03/26 2158 Pulse 84 03/26 2158 Resp 03/26 Review of Vital Signs Reviewed Basic Physical Exam Basic PE HEAD: Atraumatic/NC, EYES: PERRL, conj clear, ENT: Membranes moist, NECK: Supple, ABD: Soft/non- tender, EXT: No gross abnormality, SKIN: No rashes, warm/dry, NEURO: alert oriented, NEURO: gross mo vement NL, PSYCH: NL thought content Focused PE General/Const General/Const Awake, Alert, No acute di stress, Well appearing, Well developed , Well hydrated, Well nourished, Cooperative, No t toxic appearing MS Neck Neck Atraumatic, Supple, No meningismus , Full range of motion, No adenopathy, No swelling, Non-tender, No midline vert ebral tend, No masses, No crepitus, No JVD, No carotid bruit, Thyroid NL, No tracheal d eviation Resp/Chest Respiratory/Chest Atraumatic, Breath sounds NL, Breath sounds = bilat, No respiratory distress, No rales, No rhonchi, No w heezing, No retractions, No stridor, No chest tenderness, No chest wall defo rmity, No crepitus Cardiovascular Cardiovascular Heart rate NL, Regular rhythm, H eart sounds NL, No gallop, No murmurs, No rubs, Cap refill not delayed, Periph eral circulation NL, Pulses = bilaterally, No gross BP differential Abdomen/GI Abdomen/GI Atraumatic, Soft, Non-tender, McBurn ey's non-tender, No guarding, No rebound, BS normoactive, No distention, No he rnia, No palpable mass, No pulsatile mass MS Back Back Atraumatic, Inspection NL, Full range of m otion, Painless range of motion, Non-tender, No midline vertebral tend, N o paraspinal tenderness, No muscle spasm, Straight leg raise neg, No CVA ten derness MS Lower Extrem Lower Ext/Pelvis/MS Atraumatic, Inspection NL, Full range of motion, No swelling, Non-tender, No erythema, No deformity, Neurologic intact, Vascular intact, No ligamentous injury, Tendon fu nction NL, No compartment syndrome, No circumferential injury, No edema, Gait NL, Pelvi s stable, Pelvis non-tender Psychiatric Psychiatric Affect NL, Mood NL, Not suicidal, N ot homicidal, No hallucinations, Cognitive function NL, J udgment/insight NL, Thought content NL Interpretation Diagnostics Lab Results Interpretation Results Laboratory Tests 03/26/222126: [Embedded Image Not Available] Laboratory Tests: 03/26 Chemistry POC Sodium (138 - 146 mmol/L) 144 POC Potassium (3.5 - 4.9 mmol/L) 3.7 POC Chloride (98 - 109 mmol/L) 114 H POC Total CO2 (24 - 29 mmol/L) 18 L POC BUN (8 - 26 mg/dL) 12 POC Creatinine (0.6 - 1.3 mg/dL) 0.8 Estimated GFR (MDRD) (>60) 83 POC Glucose (74 - 106 MG/DL) 135 H POC Ioniz Calcium Sonali (1.10 - 1.32 mmol/L) 1.2 6 Rapid Troponin I (0.00 - 0.08 ng/mL) 0.01 Hematology WBC (4.8 - 10.8 x10 3/u) 10.7 RBC (4.20 - 5.40 x10 6/uL) 3.57 L Hgb (12.0 - 16.0 g/dL) 10.5 L Hct (34.0 - 47.0 %) 31.9 L MCV (80 - 99 fL) 89 MCH (27.0 - 31.0 pg) 29.4 MCHC (33.0 - 37.0 g/dL) 32.9 L RDW (11.5 - 14.5 %) 14.0 Plt Count (130 - 400 x10 3/uL) 275 MPV (9.4 - 12.4 fL) 9.5 Neut % (Auto) (37.0 - 80.0 %) 58.7 Lymph % (Auto) (10.0 - 50.0 %) 33.0 Mixed Cells % (Auto) (0.0 - 11.0 %) 8.3 Neut # (Auto) (2.0 - 6.9 x10 3/uL) 6.3 Lymph # (Auto) (0.9 - 4.1 x10 3/uL) 3.5 Mixed Cells # (0.2 - 1.1 10e3/mm3) 0.9 03/26 Toxicology Urine Opiates Screen (NEGATIVE) Pos Ur Methadone (NEGATIVE) Neg Ur Barbiturates, Qual (NEGATIVE) Neg Ur Tricyclics Screen (NEGATIVE) Neg Ur Amphetamines Screen (NEGATIVE) Neg Urine Methamphetamines (NEGATIVE) Neg U Benzodiazepines Scrn (NEGATIVE) Neg Urine Cocaine Screen (NEGATIVE) Neg Urine Cannabinoids (NEGATIVE) Neg Urines Urine Color (YELLOW) Dark yellow Urine Appearance (CLEAR) Slightly Cloudy Urine pH (4.5 - 8.5) 7.0 Ur Specific Telephone (1.000 - 1.030) 1.020 Urine Protein (NEGATIVE) NEGATIVE Urine Glucose (UA) (NEGATIVE MG/AL) NEGATIVE Urine Ketones (NEGATIVE MG/DL) NEGATIVE Urine Blood (NEGATIVE) NEGATIVE Urine Nitrite (NEGATIVE) NEGATIVE Urine Bilirubin (NEGATIVE) NEGATIVE Urine Urobilinogen (<=1.0 EU/dL) 0.2 Ur Leukocyte Esterase (NEGATIVE) NEGATIVE POC Urine HCG (IU/L) NEGATIVE Recent Impressions: RADIOLOGY - XR CHEST 1 V 03/26 2140 Report Impression - Status: SIGNED Entered: 03/26/20222157 IMPRESSION: No evidence to suggest active cardio pulmonary disease. Impression By: [email or web address] - Dav Orellana MD Lab Imaging Statement Laboratory radiographic studies reviewed and con sidered in the medical decision-making. 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 ED Course Medication(s) Ordered Medication(s) Ordered: Central Nervous System Agents Sig/Andrzej Start time Last Medication Dose Route Stop Time Status Admin Aspirin 324 MG X1ED STA 03/26 2126 CAN PO 03/26 2127 Differential Diagnosis Differential Diagnosis Acute coronary syndrome, Acute myocardial infarct, Anxiety disorder, Aortic dissection, Aortic sten osis, Asthma exacerbation, Bronchitis, Chest pain, Chest pain, acute, Amber cystitis, Cholelithiasis, Congestive heart failure, Contusion, Costochondr itis, Dysrhythmia, Esophageal rupture, Esophagitis, Gastritis, GERD, Gun shot wound chest, Hiatal hernia, Hypertroph cardiomyopathy, M allory-Alan syndrome, Mitral stenosis, Mitral valve prolapse, Musculoskeletal pa in, Myocardial infarction, Myocarditis, Peptic ulcer disease, Pericarditis, Pleurisy, Pneumomediastin um, Pneumonia, Pneumothorax, Pulmonary edema, Pulmonary embolism, Rib fractur e, Stab wound chest, Stable angina, Unstable angina Patient Discharge Departure Vital Signs/Condition Vital Signs First Documented: Result Date Time Pulse Ox 98 03/26 2158 Temp 98.2 03/26 2158 Pulse 84 03/26 2158 Resp 03/26 Last Documented: Result Date Time Pulse Ox 98 03/26 2158 Temp 98.2 03/26 2158 Pulse 84 03/26 2158 Resp 03/26 All vital signs available at the time of this en try have been reviewed. Condition Stable Clinical Impression Clinical Impression Primary Impression: Chest pain Disposition Decision Discharge )( Discharged to Home Yes )( Time 2231 )( Date 03/26/22 Discharge/Care Plan Counseled Regarding Diagnosis, Lab resul ts, Need for follow-up, When to return to ED Prescriptions Reviewed Risks, Benefits, Alternat rafael treatment Patient Instructions ED Chest Pain, Uncertain Ca use Referrals Provider Referral: Dru Holley MD Address: [address] [place] [address] [place] [address] Departure Forms [facility] [employer] [facility] LIST WORK/SCHOOL EXCUSE VARIABLE Discharge Note I have spoken with the patie nt and/or caregivers. I have explained the patient's condition, diagnoses and tatyana atment plan based on the information available to me at this time. I have answered the patient's and/ or caregiver's questions and addressed any concerns. The patient and/or careg edide have as good an understanding of the patient 's diagnosis, condition and treatment plan as can be expected at this point. The vital signs have bee n stable. The patient's condition is stable and appr opriate for discharge from the emergency department. The patient will pursue further outpatient evalu ation with the primary care physician or other designated or consulting phys ician as outlined in the discharge instructions. The patient and/or caregivers are agreeable to this plan of care and follow-up instructions have been exp lained in detail. The patient and/or caregivers have received these instructio ns in written format and have expressed an understanding of the discharge inst ructions. The patient and/or caregivers are aware that any significant change in condition or worsening of symptoms should prompt an immediate return to [facility] or the closest emergency department or a call to 911. Electronically Signed by Dav Crook MD on at 9883 RPT #:[id number] END OF REPORT
[2023-04-01 22:05] LABS: Absolute Lymphocytes (CBC) 3.5 K/uL (0.7-4.9); Hematocrit 36.8 % (36.0-45.0); Lymphocytes % 24.9 % (15.3-44.8); MCV 96.4 fL (80-100); MPV 8.2 fL (7.6-11.3); RBC Red Blood Cell Count 3.82 M/uL (3.86-4.86)
[2023-04-01 22:20] LABS: Specific Gravity 1.015 (1.005-1.030); Urine Bilirubin NEGATIVE (Negative); Urine Blood Negative (Negative); Urine Clarity Clear (Clear); Urine Color Light-Yellow (Yellow); Urine Glucose NEGATIVE (Negative); Urine Protein NEGATIVE (Negative); Urine Urobilinogen Normal (Normal); Urine pH 6.5 (5.0-7.0)
[2023-04-01 22:21] LABS: Albumin 3.8 g/dL (3.4-5.0); Bilirubin Total 0.4 mg/dL (0.2-1.0); Potassium 3.6 mEq/L (3.5-5.1)
[2023-04-01 22:25] LABS: Barbiturates NEGATIVE (NEGATIVE); Benzodiazepines NEGATIVE (NEGATIVE); Cocaine NEGATIVE (NEGATIVE); METHAMPHETAM NEGATIVE (NEGATIVE); Methadone NEGATIVE (NEGATIVE); Opiates NEGATIVE (NEGATIVE); Phencyclidine NEGATIVE (NEGATIVE); THC Cannibis NEGATIVE (NEGATIVE)
[2023-04-02] MEDS ORDERED: IBUPROFEN 400 MG TAB ONE (00:18)
[2023-04-02] MEDS ORDERED: ACETAMINOPHEN 500 MG TAB ONE (00:18)
--- NOTE | 2023-04-02 00:36 | EDPHYS ---
Physician Documentation [facility] Name: Erica Tucker Age: 32 yrs Sex: Female : 1990 Arrival Date: 04/01/2023 Time: 21:15 Bed 8 Private MD: ED Physician Morteza Streeter HPI: 04/01 21:24 This 32 yrs old Female presents to ER via Unassigned with complaints of sp4 Abdominal Pain, Abnormal Lab Results, Vision Problem, Headache. 04/02 00:29 This is a very pleasant 32-year-old female who reports that she has been feeling unwell sp4 for the past 6 months. Patient reports abdominal pains left upper quadrant reports fatigue, generalized weakness, and some episodes of confusion. Patient has history of mononucleosis and splenomegaly. Patient has a history of elevated liver function. And patient has history of UTI patient has history of hypothyroidism for which she takes Synthroid. History of pseudotumor cerebri. And hypercholesterolemia. Historical: - Allergies: 04/01 21:49 PENICILLINS; kd3 21:49 NSAIDS; kd3 21:49 Phenergan; kd3 - PMHx: 21:49 TIA; pseudotumor cerebri; Hypothyroidism; Hypercholesterolemia; depressive disorder; kd3 Cerebrovascular accident; Atrial fibrillation; - PSHx: 21:49 Appendectomy; Myringotomy and insertion of tympanic ventilation tube; [place] teeth kd3 extraction; - Immunization history:: Adult Immunizations up to date. - Social history:: Smoking status: Patient/guardian denies using tobacco, but has a distant history of tobacco abuse. - Family history:: not pertinent. ROS: 04/02 00:29 Constitutional: Negative for fever, chills, and weight loss positive for fatigue and sp4 episodes of confusion Eyes: Negative for injury, pain, redness, and discharge, ENT: Negative for injury, pain, and discharge, Neck: Negative for injury, pain, and swelling, Cardiovascular: Negative for chest pain, palpitations, and edema, Respiratory: Negative for shortness of breath, cough, wheezing, and pleuritic chest pain, Abdomen/GI: Negative for vomiting, diarrhea, and constipation, positive for nausea and abdominal pain left upper quadrant. Back: Negative for injury and pain, : Negative for injury, bleeding, discharge, and swelling, MS/Extremity: Negative for injury and deformity, Skin: Negative for injury, rash, and discoloration, Neuro: Negative for headache, weakness, numbness, tingling, and seizure, Psych: Negative for depression, anxiety, Allergy/Immunology: Negative for hives, rash, and allergies Endocrine: Negative for neck swelling, polydipsia, polyuria, polyphagia, and weight changes Hematologic/Lymphatic: Negative for swollen nodes, abnormal bleeding, and unusual bruising Exam: 00:29 Constitutional: This is a well developed, well nourished patient who is awake, alert, sp4 and in no acute distress. Head/Face: Normocephalic, atraumatic. Eyes: Pupils equal round and reactive to light, extra-ocular motions intact. Lids and lashes normal. Conjunctiva and sclera are not injected. Cornea within normal limits. Periorbital areas with no swelling, redness, or edema. ENT: Nares patent. No nasal discharge, no septal abnormalities noted. Tympanic membranes are normal and external auditory canals are clear. Oropharynx with no redness, swelling, or masses, exudates, or evidence of obstruction, uvula midline. Mucous membranes moist. Neck: Trachea midline, no thyromegaly or masses palpated, and no cervical lymphadenopathy. Supple, full range of motion without nuchal rigidity, or vertebral point tenderness. No Meningismus. Chest/axilla: Normal chest wall appearance and motion. Nontender with no deformity. No lesions are appreciated. Cardiovascular: Regular rate and rhythm with a normal S1 and S2. No gallops, murmurs, or rubs. Normal PMI, no JVD. No pulse deficits. Respiratory: Lungs have equal breath sounds bilaterally, clear to auscultation and percussion. No rales, rhonchi or wheezes noted. No increased work of breathing, no retractions or nasal flaring. Abdomen/GI: Soft, non-tender, with normal bowel sounds. No distension or tympany. No guarding or rebound. No evidence of tenderness throughout. Back: No spinal tenderness. No costovertebral tenderness. Skin: Warm, dry with normal turgor. Normal color with no rashes, no lesions, and no evidence of cellulitis. MS/ Extremity: Pulses equal, no cyanosis. Neurovascular intact. Full, normal range of motion. Neuro: Awake and alert, GCS 15, oriented to person, place, time, and situation. Cranial nerves II-XII grossly intact. Motor strength 5/5 in all extremities. Sensory grossly intact. Psych: Awake, alert, with orientation to person, place and time. Behavior, mood, and affect are within normal limits Vital Signs: 04/01 21:46 Weight 124.74 kg; Height 5 ft. 7 in. ; kd3 21:51 BP 115 / 78; Pulse 74; Resp 19; Temp 98.2; Pulse Ox 99% on R/A; Weight 95.25 kg; kd3 23:20 BP 114 / 81; Pulse 68; Resp 17; Pulse Ox 100% on R/A; ll3 04/02 00:23 BP 111 / 97; Pulse 72; Resp 16; Pulse Ox 99% on R/A; ll3 04/01 21:51 Body Mass Index 32.89 (95.25 kg, 170.18 cm) kd3 Jacob Coma Score: 00:29 Eye Response: spontaneous(4). Motor Response: obeys commands(6). Verbal Response: sp4 oriented(5). Total: 15. MDM: 04/01 21:26 Patient medically screened. sp4 04/02 00:29 Differential diagnosis: hypoglycemia, hyponatremia, tension headache, uremia, vasomotor sp4 headache. Data reviewed: vital signs, nurses notes, diagnostic data from outside facility, old medical records, lab test result(s), cardiac enzymes, CBC, electrolytes, hepatic panel, radiologic studies, CT scan. Consideration of Admission/Observation Escalation of care including admission/observation considered. ED course: CT abdomen pelvis revealed splenomegaly but is otherwise unremarkable. CT head is normal. 00:33 ED course: Urine is negative, drug screen negative, mild elevation alkaline sp4 phosphatase otherwise unremarkable chemistry panel. Mild leukocytosis otherwise unremarkable CBC. At this time we cannot determine patient's source of fatigue for the past 6 months however patient will be advised to see her webmaster for cortisol level and also estrogen progesterone levels. Additional tests may be advised by webmaster. . 04/01 21:27 Order name: CBC with Diff; Complete Time: 23:39 sp4 04/01 21:27 Order name: CMP; Complete Time: 23:39 sp4 04/01 21:27 Order name: Lipase; Complete Time: 23:39 sp4 04/01 21:27 Order name: Test, Urine; Complete Time: 23:39 sp4 04/01 21:27 Order name: Urinalysis w/ reflexes; Complete Time: 23:39 sp4 04/01 21:34 Order name: Urine Drug Screen; Complete Time: 23:39 sp4 04/01 21:34 Order name: CT Head Brain wo Cont sp4 04/01 21:34 Order name: CT Abd/Pelvis - IV Contrast Only sp4 04/01 21:27 Order name: IV Saline Lock; Complete Time: 21:51 sp4 04/01 21:27 Order name: Labs collected and sent; Complete Time: 21:51 sp4 Administered Medications: 00:13 Drug: Acetaminophen PO 1000 mg Route: PO; ll3 00:54 Follow up: Response: No adverse reaction ll3 Disposition Summary: 04/02/23 00:36 Discharge Ordered Location: Home sp4 Problem: new sp4 Symptoms: have improved sp4 Condition: Stable sp4 Diagnosis - Abdominal pain, unspecified sp4 - Other malaise and fatigue sp4 - Persistent fatigue, history of hypothyroidism, left upper quadrant abdominal pain, sp4 splenomegaly Followup: sp4 - With: Private Physician - When: 7 - 10 days - Reason: Recheck today's complaints Discharge Instructions: - Discharge Summary Sheet sp4 - Fatigue sp4 Signatures: Dispatcher [employer] Amee Black RN RN ll3 Bruna Finley RN RN kd3 Morteza Streeter MD MD sp4
--- NOTE | 2023-04-02 00:36 | ER ---
Nurse's Notes [facility] Name: Erica Tucker Age: 32 yrs Sex: Female : 1990 Arrival Date: 04/01/2023 Time: 21:15 Bed 8 Private MD: Diagnosis: Abdominal pain, unspecified;Other malaise and fatigue;Persistent fatigue, history of hypothyroidism, left upper quadrant abdominal pain, splenomegaly Presentation: 04/01 21:46 Chief complaint: Patient states: My spleen area has been hurting since around 5pm. It kd3 is making my confusion worse. It also has been radiating around to my back. Coronavirus screen: Vaccine status: Patient reports receiving the 2nd dose of the covid vaccine. Ebola Screen: No symptoms or risks identified at this time. Initial Sepsis Screen: Does the patient meet any 2 criteria? No. Patient's initial sepsis screen is negative. Does the patient have a suspected source of infection? No. Patient's initial sepsis screen is negative. Risk Assessment: Do you want to hurt yourself or someone else? Patient reports no desire to harm self or others. Onset of symptoms was April 01, 2023. 21:46 Method Of Arrival: Ambulatory kd3 21:46 Acuity: NANCY 3 kd3 Triage Assessment: 21:49 General: Appears uncomfortable, Behavior is calm, cooperative. Pain: Complains of pain kd3 in left upper quadrant. GI: Abdomen is non-distended. Historical: - Allergies: 21:49 PENICILLINS; kd3 21:49 NSAIDS; kd3 21:49 Phenergan; kd3 - PMHx: 21:49 TIA; pseudotumor cerebri; Hypothyroidism; Hypercholesterolemia; depressive disorder; kd3 Cerebrovascular accident; Atrial fibrillation; - PSHx: 21:49 Appendectomy; Myringotomy and insertion of tympanic ventilation tube; [place] teeth kd3 extraction; - Immunization history:: Adult Immunizations up to date. - Social history:: Smoking status: Patient/guardian denies using tobacco, but has a distant history of tobacco abuse. - Family history:: not pertinent. Screenin/30 00:55 [facility] ED Fall Risk Assessment (Adult) History of falling in the last 3 months, ll3 including since admission No falls in past 3 months (0 pts) Confusion or Disorientation No (0 pts) Intoxicated or Sedated No (0 pts) Impaired Gait No (0 pts) Mobility Assist Device Used No (0 pt) Altered Elimination No (0 pt) Score/Fall Risk Level 0 - 2 = Low Risk Oriented to surroundings, Maintained a safe environment, Educated pt \T\ family on fall prevention, incl call for assistance when getting out of bed. Abuse screen: Denies threats or abuse. Denies injuries from another. Nutritional screening: No deficits noted. Tuberculosis screening: No symptoms or risk factors identified. Assessment: 04/01 21:49 General: See triage assessment. ll3 04/02 00:57 Reassessment: No changes from previously documented assessment. Patient and/or family ll3 updated on plan of care and expected duration. Pain level reassessed. Patient is alert, oriented x 3, equal unlabored respirations, skin warm/dry/pink. Vital Signs: 04/01 21:46 Weight 124.74 kg; Height 5 ft. 7 in. ; kd3 21:51 BP 115 / 78; Pulse 74; Resp 19; Temp 98.2; Pulse Ox 99% on R/A; Weight 95.25 kg; kd3 23:20 BP 114 / 81; Pulse 68; Resp 17; Pulse Ox 100% on R/A; ll3 04/02 00:23 BP 111 / 97; Pulse 72; Resp 16; Pulse Ox 99% on R/A; ll3 04/01 21:51 Body Mass Index 32.89 (95.25 kg, 170.18 cm) kd3 Avery Coma Score: 00:29 Eye Response: spontaneous(4). Motor Response: obeys commands(6). Verbal Response: sp4 oriented(5). Total: 15. ED Course: 04/01 21:19 Patient arrived in ED. mr 21:22 Ajay Willingham PA is PHCP. cp 21:24 Morteza Streeter MD is Attending Physician. sp4 21:49 Triage completed. kd3 21:49 Arm band placed on left wrist. kd3 21:51 CBC with Diff Sent. kd3 21:51 CMP Sent. kd3 21:51 Lipase Sent. kd3 21:51 Inserted saline lock: 20 gauge in right antecubital area, using aseptic technique. kd3 Blood collected. 22:00 Patient has correct armband on for positive identification. Bed in low position. Call ll3 light in reach. Side rails up X 1. 22:03 Urine Drug Screen Sent. 1 22:03 CBC with Diff Sent. 1 22:03 CMP Sent. [facility] 22:03 Lipase Sent. [facility] 22:03 Test, Urine Sent. 1 22:03 Urinalysis w/ reflexes Sent. 1 23:18 CT Head Brain wo Cont In Process Unspecified. EDMS 23:18 CT Abd/Pelvis - IV Contrast Only In Process Unspecified. EDMS 04/02 00:56 No provider procedures requiring assistance completed. IV discontinued, intact, ll3 bleeding controlled, No redness/swelling at site. Pressure dressing applied. Administered Medications: 00:13 Drug: Acetaminophen PO 1000 mg Route: PO; ll3 00:54 Follow up: Response: No adverse reaction ll3 Medication: 00:56 VIS not applicable for this client. 3 Outcome: 00:36 Discharge ordered by . sp4 00:56 Discharged to home ambulatory. ll3 00:56 Condition: stable 00:56 Discharge instructions given to patient, Instructed on discharge instructions, follow up and referral plans. Demonstrated understanding of instructions, follow-up care. 00:58 Patient left the ED. 3 Signatures: Dispatcher [employer] EDTX Elder Negar mr Ajay Willingham PA PA cp Loubet, Lynsea RN RN ll3 Bruna Finley RN RN kd3 Morteza Streeter MD MD sp4 Siva Browne [facility]
[2023-04-02 01:03] VITALS: TEMP 98.2
[2023-04-02 01:06] VITALS: BP 111/97; O2SAT 99
--- NOTE | 2023-04-02 11:17 | RAD REPORT ---
EXAM DESCRIPTION: CT - Head Brain Wo Cont - 04/02/2023 7:03 am CLINICAL HISTORY: The patient is 32 years old and is Female; CONFUSED TECHNIQUE: Axial computed tomography images of the head/brain without intravenous contrast. Sagitt al and coronal reformatted images were created and reviewed. This CT exam was performed using one o r more of the following dose reduction techniques: automated exposure control, adjustment of the mA and/or kV according to patient size, and/or use of iterative reconstruction technique. COMPARISON: No relevant prior studies available. FINDINGS: Brain: Unremarkable. No hemorrhage. No significant white matter disease. No edema. Ventricles: Unremarkable. No ventriculomegaly. Bones/joints: Unremarkable. No acute fracture. Soft tissues: Unremarkable. Sinuses: Unremarkable as visualized. Mastoid air cells: Unremarkable as visualized. No mastoid effusion. IMPRESSION: No acute intracranial abnormality. Electronically signed by: Jayson Ghosh MD 04/01/2023 11:59 PM CDT Due to temporary technical issues with the PACS/Fluency reporting system, reports are being signed by the in house radiologists without review as a courtesy to insure prompt reporting. The interpreting radiologist is fully responsible for the content of the report.
--- NOTE | 2023-04-02 15:54 | RAD REPORT ---
EXAM DESCRIPTION: CT - Abdomen Pelvis W Contrast - 04/02/2023 7:02 am CLINICAL HISTORY: The patient is 32 years old and is Female; ABD PAIN TECHNIQUE: Axial computed tomography images of the abdomen and pelvis with intravenous contrast. S agittal and coronal reformatted images were created and reviewed. This CT exam was performed using one or more of the following dose reduction techniques: automated exposure control, adjustment of t he mA and/or kV according to patient size, and/or use of iterative reconstruction technique. COMPARISON: No relevant prior studies available. FINDINGS: Lung bases: Unremarkable. No mass. No consolidation. ABDOMEN: Liver: Hepatomegaly. Gallbladder and bile ducts: Unremarkable. No calcified stones. No ductal dilation. Pancreas: Unremarkable. No mass. No ductal dilation. Spleen: Splenomegaly. Adrenals: Unremarkable. No mass. Kidneys and ureters: Simple cysts in the right kidney. No follow-up imaging is recommended. No hydronephrosis. Stomach and bowel: Unremarkable. No obstruction. No mucosal thickening. PELVIS: Appendix: Suggestion of prior appendectomy. Bladder: Unremarkable. Reproductive: Corpus luteum cyst in the right ovary. ABDOMEN and PELVIS: Intraperitoneal space: Unremarkable. No free air. No significant fluid collection. Bones/joints: No acute fracture. No dislocation. Soft tissues: Unremarkable. Vasculature: Unremarkable. No abdominal aortic aneurysm. Lymph nodes: Unremarkable. No enlarged lymph nodes. IMPRESSION: No acute finding in the abdomen/pelvis. Electronically signed by: Jayson Ghosh MD 04/02/2023 12:05 AM CDT Due to temporary technical issues with the PACS/Fluency reporting system, reports are being signed by the in house radiologists without review as a courtesy to insure prompt reporting. The interpreting radiologist is fully responsible for the content of the report.
== END 2023-04-02 00:58 | disposition home or self-care (01) ==
LOC: ER 21:15
DX: R10.12 Left upper quadrant pain (principal); R53.81 Other malaise; R53.83 Other fatigue; R16.1 Splenomegaly, not elsewhere classified; E03.9 Hypothyroidism, unspecified; Z88.0 Allergy status to penicillin; Z88.6 Allergy status to analgesic agent; Z88.8 Allergy status to other drugs, medicaments and biological substances
CPT/HCPCS: 85025; 36415; 81025; 81003; 83690; 80053; 80307; 70450; 74177; 99284; Q9967

== ENCOUNTER → 2023-11-14 | Emergency (ER) | payer OTHER ==
[~2023-11-14] MED LIST: CEFTRIAXONE 1000 MG/VIAL ONE; HYDROMORPHONE HCL 1 MG/ML INJ ONE; KETOROLAC 30 MG/ML INJ ONE; MAGNESIUM SULFATE 1 gm IVPB 1 GM/100 ML BAG IV ONE; MORPHINE 4 MG/ML SYR ONE; NA CHLORIDE 0.9% 1,000 ML ONE; ONDANSETRON 4 MG/2 ML VIAL ONE; POTASSIUM 25 MEQ EFFERV TAB ONE; TAMSULOSIN 0.4 MG SR CAP ONE
[2023-11-14 22:54] LABS: Absolute Lymphocytes (CBC) 3.4 K/uL (0.7-4.9); Hematocrit 34.9 % (36.0-45.0); MCV 96.9 fL (80-100); MPV 7.7 fL (7.6-11.3); Platelets 286 thou/uL (152-406)
[2023-11-14 23:07] LABS: Specific Gravity 1.007 (1.005-1.030); Urine Bacteria <20 /HPF (<20); Urine Bilirubin NEGATIVE (Negative); Urine Blood 3+ (Negative); Urine Clarity Turbid (Clear); Urine Color Colorless (Yellow); Urine Glucose NEGATIVE (Negative); Urine Mucus Slight /HPF (None Seen); Urine Protein NEGATIVE (Negative); Urine RBC 21-50 /HPF (None Seen); Urine Urobilinogen Normal (Normal)
[2023-11-14 23:13] LABS: Albumin 3.6 g/dL (3.4-5.0); Bilirubin Total 0.3 mg/dL (0.2-1.0); Potassium 3.4 mEq/L (3.5-5.1); Protein, Total 7.5 g/dL (6.4-8.2)
--- NOTE | 2023-11-15 00:38 | ER ---
Nurse's Notes [facility] Name: Erica Tucker Age: 33 yrs Sex: Female : 1990 Arrival Date: 11/14/2023 Time: 21:53 Bed 8 Private MD: Diagnosis: Calculus of ureter-right, intractable pain;Nausea Presentation: 11/14 22:09 Chief complaint: Patient states: urinating blood starting yesterday morning at 0130; hx km8 of kidney stones; pain to right side of ABD and lower ABD; denies fever or vomiting. Coronavirus screen: Client denies travel out of the [place] in the last 14 days. Ebola Screen: No symptoms or risks identified at this time. Initial Sepsis Screen: Does the patient meet any 2 criteria? No. Patient's initial sepsis screen is negative. Does the patient have a suspected source of infection? No. Patient's initial sepsis screen is negative. 22:09 Method Of Arrival: Ambulatory km8 22:11 Risk Assessment: Do you want to hurt yourself or someone else? Patient reports no km8 desire to harm self or others. Onset of symptoms was November 13, 2023 at 01:30. 22:11 Acuity: NANCY 3 km8 Triage Assessment: 22:11 General: Appears in no apparent distress. uncomfortable, Behavior is cooperative, km8 appropriate for age. Pain: Complains of pain in right lower quadrant Pain currently is 8 out of 10 on a pain scale. EENT: No signs and/or symptoms were reported regarding the EENT system. Neuro: Level of Consciousness is awake, alert, obeys commands, Oriented to person, place, time, situation. Cardiovascular: Denies chest pain, Capillary refill < 3 seconds Patient's skin is warm and dry. Respiratory: Airway is patent Respiratory effort is even, unlabored, Respiratory pattern is regular, symmetrical. GI: Reports lower abdominal pain, nausea. : Reports burning with urination, blood in urine. Derm: No signs and/or symptoms reported regarding the dermatologic system. Skin is intact, is healthy with good turgor, Skin is dry, Skin is normal, Skin temperature is warm. Musculoskeletal: No signs and/or symptoms reported regarding the musculoskeletal system. Circulation, motion, and sensation intact. Range of motion: intact in all extremities. 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 km8 Historical: - Allergies: 11/15 01:21 gluten intolerant; vc1 01:21 Lagevrio (EUA); vc1 01:21 NSAIDS; vc1 01:21 PENICILLINS; vc1 01:21 Phenergan; vc1 - PMHx: 01:21 Ataxia; Atrial fibrillation; Cerebrovascular accident; Chronic pain; depressive vc1 disorder; Hypercholesterolemia; Hypothyroidism; Kidney stone; lesions ulnar nerves; polyneuropathy; pseudotumor cerebri; TIA; Urinary incontinence; - PSHx: 01:21 Appendectomy; kidney stone surgery (si); Myringotomy and insertion of tympanic vc1 ventilation tube; [place] teeth extraction; - Immunization history:: Client reports receiving the 1st dose of the Covid vaccine, Flu vaccine is not up to date. - Social history:: Smoking status: Patient denies any tobacco usage or history of. Patient/guardian denies using alcohol, street drugs. Screenin/11 22:37 Abuse screen: Denies threats or abuse. Nutritional screening: No deficits noted. vc1 Tuberculosis screening: No symptoms or risk factors identified. 11/15 02:45 [facility] ED Fall Risk Assessment (Adult) Score/Fall Risk Level 0 - 2 = Low Risk. as6 Assessment: 11/14 22:30 General: See triage assessment. vc1 11/15 00:00 Reassessment: No changes from previously documented assessment. Patient and/or family vc1 updated on plan of care and expected duration. Pain level reassessed. Patient is alert, oriented x 3, equal unlabored respirations, skin warm/dry/pink. 01:00 Reassessment: No changes from previously documented assessment. Patient and/or family vc1 updated on plan of care and expected duration. Pain level reassessed. Patient is alert, oriented x 3, equal unlabored respirations, skin warm/dry/pink. Vital Signs: 11/14 22:13 BP 127 / 78; Pulse 85; Resp 16; Temp 98(IR); Pulse Ox 100% on R/A; Weight 127.01 kg; km8 Height 5 ft. 7 in. ; Pain 8/10; 23:00 BP 126 / 85; Pulse 69; Resp 18 S; Pulse Ox 99% on R/A; as6 11/15 01:24 BP 134 / 84; Pulse 78; Resp 18; Pulse Ox 99% on R/A; as6 11/14 22:13 Body Mass Index 43.85 (127.01 kg, 170.18 cm) [facility] 11/14 22:13 Pain Scale: Adult [facility] ED Course: 11/14 22:00 Patient arrived in ED. gm2 22:01 Ajay Willingham PA is PHCP. cp 22:01 Rey Almnazar MD is Attending Physician. cp 22:11 Triage completed. km8 22:11 Arm band placed on right wrist. km8 22:36 Laura Milian, FANTASMA is Primary Nurse. vc1 22:36 Accessed peripheral vein via ultrasound, utilizing dynamic ultrasound technique using vc1 Clean \T\ dry. Dressing intact. Good blood return. Flushes easily. 20g RAC. 23:12 CT Stone Protocol In Process Unspecified. EDMS 11/15 00:31 Juan Pyle MD is Referral Physician. cp 01:22 No provider procedures requiring assistance completed. vc1 01:42 EMS accepted for transport with ETA 0240. 01:44 Initiated transfer to [facility], spoke with Radha Bill. 02:01 Pt accepted for transfer to [facility] ER by Jose Rodas per Radha Bill. 02:46 Bed in low position. Call light in reach. Provided Education on: need for transfer . as6 02:46 Patient transferred, IV remains in place. as6 Administered Medications: 11/14 22:48 Drug: Ketorolac IVP 15 mg IVP once Route: IVP; Site: right antecubital; 1 11/15 02:43 Follow up: Response: No adverse reaction as6 11/14 22:48 Drug: NS 0.9% IV 1000 ml IV at 1 bolus Per protocol; 1000 mL bolus Route: IV; Rate: 1 vc1 bolus; Site: right antecubital; 11/15 02:43 Follow up: Response: No adverse reaction; IV Status: Completed infusion; IV Intake: as6 1000ml 11/14 22:49 Drug: Ondansetron IVP 4 mg IVP once; over 2 minutes Route: IVP; Site: right antecubital;vc1 11/15 02:43 Follow up: Response: No adverse reaction as6 11/14 23:57 Drug: morphine IVP or IV 4 mg IVP once over 4 mins Route: IVP; Infused Over: 4 mins; vc1 Site: right antecubital; 11/15 02:43 Follow up: Response: No adverse reaction as6 11/14 23:57 Drug: Ondansetron IVP 4 mg IVP once; over 2 minutes Route: IVP; Site: right antecubital;vc1 11/15 02:44 Follow up: Response: No adverse reaction as6 00:40 Drug: Potassium PO Effervescent Tablet 25 mEq PO once; dissolve in 4 ounces of water or vc1 juice Route: PO; 02:44 Follow up: Response: No adverse reaction as6 00:40 Drug: HYDROmorphone IVP 1 mg IVP once Route: IVP; Site: right antecubital; vc1 02:44 Follow up: Response: No adverse reaction as6 00:41 Drug: Flomax PO 0.4 mg PO once Route: PO; vc1 02:44 Follow up: Response: No adverse reaction as6 00:41 Drug: Rocephin IV 1 grams IV at calculated rate once; Given slow IV push per pharmacy vc1 instructions Route: IV; Rate: calculated rate; Site: right antecubital; 02:44 Follow up: Response: No adverse reaction; IV Status: Completed infusion; IV Intake: [id number] 00:41 Drug: Magnesium Sulfate IVPB 1 grams IVPB once over 20 mins Route: IVPB; Infused Over: vc1 20 mins; Site: right antecubital; 02:44 Follow up: Response: No adverse reaction; IV Status: Completed infusion; IV Intake: as6 100ml 02:43 Drug: HYDROmorphone IVP 1 mg IVP once Route: IVP; Site: right antecubital; as6 02:44 Follow up: Response: No adverse reaction as6 Medication: 02:46 VIS not applicable for this client. as6 Intake: 02:43 IV: 1000ml; Total: 1000ml. as6 02:44 IV: 10ml; Total: 1010ml. as6 02:44 IV: 100ml; Total: 1110ml. as6 Outcome: 00:37 Discharge ordered by MD. chatman 01:26 ER care complete, transfer ordered by MD. chatman 02:45 Transferred by ground EMS to [facility], Transfer form completed. X-rays sent as6 w/ patient. 02:45 Condition: stable 02:45 Instructed on the need for transfer, 02:46 Patient left the ED. as6 Signatures: Dispatcher [employer] EDMS Ajay Willingham PA PA cp Marsh, Wendy wm Slawson, Ashby, RN RN as6 Laura Milian RN RN vc1 Devora Cotto 2 Sofia Winchester RN RN km8 Corrections: (The following items were deleted from the chart) 01:22 01:21 PMHx: lesions ulnar nerves; vc1 vc1 01:22 01:21 PMHx: lesions ulnar nerves; vc1 vc1
--- NOTE | 2023-11-15 00:38 | EDPHYS ---
Physician Documentation [facility] [place], [place] Name: Erica Tucker Age: 33 yrs Sex: Female : 1990 Arrival Date: 11/14/2023 Time: 21:53 Bed 8 Private MD: ED Physician Rey Almanzar HPI: 11/14 22:30 This 33 yrs old Female presents to ER via Ambulatory with complaints of Abdominal Pain, cp Possible Kidney Stone. 22:30 The patient presents with blood in urine. Onset: The symptoms/episode began/occurred cp yesterday. Associated signs and symptoms: Pertinent positives: nausea, right flank and lower abdomen pain, Pertinent negatives: diarrhea, fever, vaginal bleeding, vomiting. 22:30 Severity of symptoms: in the emergency department the symptoms are unchanged, despite cp home interventions. The patient has experienced similar episodes in the past, multiple times, today's symptoms are similar, to when the patient was apparently diagnosed with kidney stone. 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, unknown km8 Historical: - Allergies: 11/15 01:21 gluten intolerant; vc1 01:21 Lagevrio (EUA); vc1 01:21 NSAIDS; vc1 01:21 PENICILLINS; vc1 01:21 Phenergan; vc1 - PMHx: 01:21 Ataxia; Atrial fibrillation; Cerebrovascular accident; Chronic pain; depressive vc1 disorder; Hypercholesterolemia; Hypothyroidism; Kidney stone; lesions ulnar nerves; polyneuropathy; pseudotumor cerebri; TIA; Urinary incontinence; - PSHx: 01:21 Appendectomy; kidney stone surgery (si); Myringotomy and insertion of tympanic vc1 ventilation tube; [place] teeth extraction; - Immunization history:: Client reports receiving the 1st dose of the Covid vaccine, Flu vaccine is not up to date. - Social history:: Smoking status: Patient denies any tobacco usage or history of. Patient/guardian denies using alcohol, street drugs. ROS: 11/14 22:35 Constitutional: Negative for body aches, chills, fever, poor PO intake, cp 22:35 Cardiovascular: Negative for chest pain, edema, palpitations, cp 22:35 Respiratory: Negative for cough, shortness of breath, wheezing, Exam: 22:40 Constitutional: The patient appears in no acute distress, alert, awake, non-toxic, well cp developed, well nourished, obese, uncomfortable, 22:40 Head/Face: Normocephalic, atraumatic. cp 22:40 Eyes: Periorbital structures: appear normal, Conjunctiva: normal, no exudate, no injection, Sclera: no appreciated abnormality, Lids and lashes: appear normal, bilaterally, 22:40 ENT: External ear(s): are unremarkable, Nose: is normal, Mouth: Lips: moist, Oral mucosa: pink and intact, moist, 22:40 Chest/axilla: Inspection: normal, 22:40 Cardiovascular: Rate: normal, 22:40 Respiratory: the patient does not display signs of respiratory distress, Respirations: normal, no use of accessory muscles, no retractions, labored breathing, is not present, Breath sounds: are clear throughout, no decreased breath sounds, no stridor, no wheezing, 22:40 Abdomen/GI: Inspection: obese Bowel sounds: active, all quadrants, Palpation: soft, in all quadrants, severe abdominal tenderness, in the anterior aspect of right lateral abdomen and right lower quadrant, rebound tenderness, is not appreciated, involuntary guarding, is not appreciated, 22:40 Back: CVA tenderness, is absent, 22:40 Skin: cellulitis, is not appreciated, no rash present. 22:40 Neuro: Orientation: to person, place \T\ time. Mentation: is normal, Vital Signs: 22:13 BP 127 / 78; Pulse 85; Resp 16; Temp 98(IR); Pulse Ox 100% on R/A; Weight 127.01 kg; [facility] Height 5 ft. 7 in. ; Pain 8/10; 23:00 BP 126 / 85; Pulse 69; Resp 18 S; Pulse Ox 99% on R/A; as6 11/15 01:24 BP 134 / 84; Pulse 78; Resp 18; Pulse Ox 99% on R/A; as6 11/14 22:13 Body Mass Index 43.85 (127.01 kg, 170.18 cm) [facility] 11/14 22:13 Pain Scale: Adult [facility] MDM: 11/14 22:15 Patient medically screened. 11/15 00:00 Differential diagnosis: kidney stone, ovarian cyst, urinary tract infection. cp 01:00 Data reviewed: vital signs, nurses notes, lab test result(s), radiologic studies, CT cp scan. 01:00 I considered the following discharge prescriptions or medication management in the emergency department Medications were administered in the Emergency Department. See MAR. Counseling: I had a detailed discussion with the patient and/or guardian regarding the historical points, exam findings, and any diagnostic results supporting the discharge/admit diagnosis, lab results, radiology results. 01:30 Response to treatment: the patient's symptoms have mildly improved after treatment, cp Patient continues to reports pain, will attempt to transfer for urology services. patient reports having urologic procedures performed at [facility] and requests transfer to [facility] in [place]. 11/14 22:10 Order name: CBC with Diff; Complete Time: 23:22 11/14 23:22 Interpretation: Normal except: WBC 17.20; RBC 3.60; HGB 11.8; HCT 34.9; RDW 15.3; RADHA% cp 74.0; NEUT A 12.7. 11/14 22:10 Order name: CMP; Complete Time: 23:22 11/14 23:22 Interpretation: Normal except: K 3.4; CL 114; CO2 19; GLUC 107; CRE 1.03; GFR 73; ALK cp 125; GLOB 3.9; A/G 0.9. 11/14 22:10 Order name: Lipase; Complete Time: 23:22 11/14 22:10 Order name: Test, Urine; Complete Time: 23:22 11/14 22:10 Order name: Urinalysis w/ reflexes; Complete Time: 23:22 11/14 23:22 Interpretation: Normal except: UBLD 3+; [facility] Turbid; URBC 21-50. 11/14 22:39 Order name: CT Stone Protocol 11/14 22:10 Order name: IV Saline Lock; Complete Time: 22:48 11/14 22:10 Order name: Labs collected and sent; Complete Time: 22:48 Administered Medications: 11/14 22:48 Drug: Ketorolac IVP 15 mg IVP once Route: IVP; Site: right antecubital; vc1 11/15 02:43 Follow up: Response: No adverse reaction as6 11/14 22:48 Drug: NS 0.9% IV 1000 ml IV at 1 bolus Per protocol; 1000 mL bolus Route: IV; Rate: 1 vc1 bolus; Site: right antecubital; 11/15 02:43 Follow up: Response: No adverse reaction; IV Status: Completed infusion; IV Intake: as6 1000ml 11/14 22:49 Drug: Ondansetron IVP 4 mg IVP once; over 2 minutes Route: IVP; Site: right antecubital;vc1 11/15 02:43 Follow up: Response: No adverse reaction as6 11/14 23:57 Drug: morphine IVP or IV 4 mg IVP once over 4 mins Route: IVP; Infused Over: 4 mins; vc1 Site: right antecubital; 11/15 02:43 Follow up: Response: No adverse reaction as6 11/14 23:57 Drug: Ondansetron IVP 4 mg IVP once; over 2 minutes Route: IVP; Site: right antecubital;vc1 11/15 02:44 Follow up: Response: No adverse reaction as6 00:40 Drug: Potassium PO Effervescent Tablet 25 mEq PO once; dissolve in 4 ounces of water or vc1 juice Route: PO; 02:44 Follow up: Response: No adverse reaction as6 00:40 Drug: HYDROmorphone IVP 1 mg IVP once Route: IVP; Site: right antecubital; vc1 02:44 Follow up: Response: No adverse reaction as6 00:41 Drug: Flomax PO 0.4 mg PO once Route: PO; vc1 02:44 Follow up: Response: No adverse reaction as6 00:41 Drug: Rocephin IV 1 grams IV at calculated rate once; Given slow IV push per pharmacy vc1 instructions Route: IV; Rate: calculated rate; Site: right antecubital; 02:44 Follow up: Response: No adverse reaction; IV Status: Completed infusion; IV Intake: [id number] 00:41 Drug: Magnesium Sulfate IVPB 1 grams IVPB once over 20 mins Route: IVPB; Infused Over: vc1 20 mins; Site: right antecubital; 02:44 Follow up: Response: No adverse reaction; IV Status: Completed infusion; IV Intake: as6 100ml 02:43 Drug: HYDROmorphone IVP 1 mg IVP once Route: IVP; Site: right antecubital; as6 02:44 Follow up: Response: No adverse reaction as6 Disposition: 04:04 Co-signature as Attending Physician, Rey Almanzar MD I reviewed the patient's care rt provided by the Advanced Practice Provider and agree with the diagnosis and treatment plan. Disposition Summary: 11/15/23 01:26 Transfer Ordered Notes: Reason: Higher level of care cp Condition: Stable(11/15/23 01:26) cp Problem: new(11/15/23 01:26) cp Symptoms: have improved(11/15/23 01:26) cp Transfer Location: [facility](11/15/23 02:04) cp Accepting Physician: DR Man Qureshi(11/15/23 02:46) as6 Diagnosis - Calculus of ureter - right, intractable pain(11/15/23 02:02) cp - Nausea(11/15/23 02:02) cp Forms: - Medication Reconciliation Form cp - SBAR form cp Signatures: Dispatcher [employer] EDMS Ajay Willingham PA PA cp Armando Baer RN RN as6 Laura Milian RN RN vc1 Rey Almanzar MD MD rt Sofia Winchester RN RN km8 Corrections: (The following items were deleted from the chart) 01:22 01:21 PMHx: lesions ulnar nerves; vc1 vc1 01:22 01:21 PMHx: lesions ulnar nerves; vc1 vc1 01:23 00:37 Home cp cp 01:23 00:37 new cp cp 01:23 00:37 have improved cp cp 01:23 00:37 Stable cp cp 01:23 00:37 Calculus of ureter - right cp cp 01:23 00:37 Multiple fractures of ribs, right side - 6th thru 10th cp cp 01:23 00:37 Nausea cp cp 02:02 01:26 Doctor cp cp 02:02 01:26 Calculus of ureter - right cp cp 02:04 01:26 [facility] cp cp 02:04 02:02 DR Man Qureshi cp cp 02:46 02:04 DR Man Qureshi cp as6 11/16 01:12 01 01:30 Response to treatment: the patient's symptoms have mildly improved after cp treatment, Patient continues to reports pain, will attempt to transfer for urology services, cp
[2023-11-15 09:19] VITALS: TEMP 98
[2023-11-15 09:33] VITALS: BP 134/84; O2SAT 99
--- NOTE | 2023-11-15 22:19 | RAD REPORT ---
EXAM DESCRIPTION: CT - Stone Protocol - 11/15/2023 6:16 am CLINICAL HISTORY: 33 years Female; FLANK PAIN; Bed Name: 8 TECHNIQUE: CT of the abdomen and pelvis without contrast. All CT scans at this facility use dose modulation, iterative reconstruction, and/or weight based dosi ng when appropriate to reduce radiation dose to as low as reasonably achievable. COMPARISON: CT abdomen pelvis 04/01/2023 FINDINGS: Lower thorax: Small bilateral pleural effusions. Abdomen: Stomach: Within normal limits Liver: No focal lesions. Hepatic steatosis. Enlarged. No intrahepatic ductal distention. Gallbladder: Nondistended Pancreas: Within normal limits Spleen: Within normal limits Right kidney: Mild hydronephrosis. 4 mm proximal ureteral stone near the uteropelvic junction. Left kidney: No hydronephrosis. 2 mm renal stone. Adrenal glands: Within normal limits Vascular structures: Within normal limits (although limited evaluation on noncontrast exam). Lymph nodes: No lymphadenopathy by size criteria Pelvis: Small bowel: No significant distention. Appendix: Not visualized. No pericecal or inflammatory changes. Colon: No distention or acute pericolonic edema. Peritoneum: No free intraperitoneal fluid or air. Bones: Subacute to chronic fracture fractures of the right lateral sixth through 10th ribs. Bladder: Unremarkable. Reproductive organs: No acute findings. Note that evaluation of the bowel and solid organs is somewhat limited due to lack of intravenous and oral contrast. IMPRESSION: 1. Mild right-sided hydronephrosis with a 4 mm right proximal ureteral stone near the uteropelvic j unction. 2. Left-sided nephrolithiasis. 3. Hepatomegaly and hepatic steatosis. 4. Subacute to chronic fracture fractures of the right lateral sixth through 10th ribs. 5. Small bilateral pleural effusions. 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 The interpreting radiologist is fully responsible for the content of the report.
== END ==
LOC: ER 21:53
DX: N20.1 Calculus of ureter (principal); R10.31 Right lower quadrant pain; Z87.442 Personal history of urinary calculi; Z88.0 Allergy status to penicillin; Z88.6 Allergy status to analgesic agent; Z88.8 Allergy status to other drugs, medicaments and biological substances
CPT/HCPCS: 96365; 96361; 96368; 85025; 81001; 36415; 81025; 83690; 80053; 76377; 74176; 96375; 99285; 96366; J2405 ×2; J7030

== ENCOUNTER → 2023-12-11 | Emergency (ER) | payer OTHER ==
[~2023-12-11] MED LIST changes: -CEFTRIAXONE 1000 MG/VIAL ONE; -HYDROMORPHONE HCL 1 MG/ML INJ ONE; -KETOROLAC 30 MG/ML INJ ONE; -MAGNESIUM SULFATE 1 gm IVPB 1 GM/100 ML BAG IV ONE; +METOPROLOL XL 50 MG TAB PO ONE; -MORPHINE 4 MG/ML SYR ONE; -NA CHLORIDE 0.9% 1,000 ML ONE; -ONDANSETRON 4 MG/2 ML VIAL ONE; -TAMSULOSIN 0.4 MG SR CAP ONE
[2023-12-11 18:14] LABS: Absolute Lymphocytes (CBC) 2.5 K/uL (0.7-4.9); Hematocrit 33.6 % (36.0-45.0); Lymphocytes % 28.1 % (15.3-44.8); MCV 96.1 fL (80-100); MPV 7.5 fL (7.6-11.3); Platelets 266 thou/uL (152-406)
--- NOTE | 2023-12-11 18:42 | RAD REPORT ---
EXAM DESCRIPTION: RADChest Single View12/11/2023 5:24 pm CLINICAL HISTORY: CHEST PAIN COMPARISON: Chest Single View dated 11/06/2023; Chest Single View dated 09/23/2022; Chest Single View dated 09/15/2022; Chest Single View dated 09/10/2022 TECHNIQUE: Portable AP view of the chest. FINDINGS: The lungs are clear apart from stable central predominant streaky opacities. No pneumotho rax or effusion. The cardiomediastinal contours are unremarkable. IMPRESSION: Stable central predominant streaky opacities, may reflect viral infection or reactive ai rway disease.
[2023-12-11 18:44] LABS: Potassium 3.3 mEq/L (3.5-5.1); Troponin High Sensitivity 3.6 pg/mL (<58.9)
--- NOTE | 2023-12-11 20:03 | EDPHYS ---
Physician Documentation [facility] Name: Erica Tucker Age: 33 yrs Sex: Female : 1990 Arrival Date: 12/11/2023 Time: 16:23 Bed 7 Private MD: ED Physician Ajay Sarkar HPI: 12/11 16:46 This 33 yrs old Female presents to ER via Ambulatory with complaints of Breathing ms3 Difficulty, Chest Pain, Blood Pressure Problem. 16:46 33-year-old female with past medical history of hypertension, autism, asthma, atrial ms3 fibrillation, narcolepsy, GERD, obstructive sleep apnea, PCOS presents to the emergency department for 2 to 3 weeks of palpitations and chest pain that began yesterday. Patient states her discomfort is an 8/10. Patient states she took 2 Procious today without relief.. 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 me1 Historical: - Allergies: 16:46 gluten intolerant; ko1 16:46 Lagevrio (EUA); ko1 16:46 NSAIDS; ko1 16:46 PENICILLINS; ko1 16:46 Phenergan; ko1 - PMHx: 16:46 Ataxia; Atrial fibrillation; Cerebrovascular accident; Chronic pain; depressive ko1 disorder; Hypercholesterolemia; Kidney stone; Hypothyroidism; lesions ulnar nerves; polyneuropathy; pseudotumor cerebri; lesions ulnar nerves; TIA; lesions ulnar nerves; Urinary incontinence; lesions ulnar nerves; - PSHx: 16:46 Appendectomy; kidney stone surgery; Myringotomy and insertion of tympanic ventilation ko1 tube; [place] teeth extraction; - Immunization history:: Adult Immunizations up to date. - Social history:: Smoking status: Patient denies any tobacco usage or history of. ROS: 16:46 Constitutional: Negative for fever, and chills. Neck: Negative for injury, pain, and ms3 swelling, 16:46 Respiratory: Negative for shortness of breath, cough, wheezing, and pleuritic chest pain, Abdomen/GI: Negative for abdominal pain, nausea, vomiting, diarrhea, and constipation, MS/Extremity: Negative for injury and deformity, Skin: Negative for injury, rash, and discoloration, 16:46 Cardiovascular: Positive for chest pain, 16:46 All other systems are negative, Exam: 16:46 Constitutional: This is a well developed, well nourished patient who is awake, alert, ms3 and in no acute distress. Head/Face: Normocephalic, atraumatic. Neck: Trachea midline, no cervical lymphadenopathy. Supple, full range of motion without nuchal rigidity, or vertebral point tenderness. No Meningismus. Cardiovascular: Regular rate and rhythm with a normal S1 and S2. No gallops, murmurs, or rubs. Normal PMI, no JVD. No pulse deficits. Respiratory: Lungs have equal breath sounds bilaterally, clear to auscultation and percussion. No rales, rhonchi or wheezes noted. No increased work of breathing, no retractions or nasal flaring. Abdomen/GI: Soft, non-tender, with normal bowel sounds. No distension or tympany. No guarding or rebound. No evidence of tenderness throughout. Skin: Warm, dry with normal turgor. Normal color with no rashes, no lesions, and no evidence of cellulitis. MS/ Extremity: Pulses equal, no cyanosis. Neurovascular intact. Full, normal range of motion. Neuro: Awake and alert, GCS 15, oriented to person, place, time, and situation. Cranial nerves II-XII grossly intact. Motor strength 5/5 in all extremities. Sensory grossly intact. Cerebellar exam normal. Normal gait. 16:46 Chest/axilla: Inspection: normal, Palpation: tenderness, that is moderate, of the anterior aspect of left upper chest, 18:14 ECG was reviewed by the Attending Physician. ms3 20:26 Musculoskeletal/extremity: DVT Exam: No signs of deep vein thrombosis. no pain, no norbert swelling, no tenderness, negative Homans' sign noted on exam, no appreciated bluish discoloration, no erythema, no increased warmth, Vital Signs: 16:45 BP 143 / 84; Pulse 86; Resp 18; Temp 97.8; Pulse Ox 98% ; ko1 19:20 BP 105 / 67; Pulse 69; Resp 18; Pulse Ox 100% on R/A; me1 20:00 BP 107 / 71; Pulse 72; Resp 17; Pulse Ox 99% on R/A; me1 20:30 BP 105 / 71; Pulse 73; Resp 18; Pulse Ox 98% on R/A; me1 MDM: 16:46 Differential diagnosis: Myocardial Infarction pneumonia, Pneumothorax. ms3 16:49 Patient medically screened. ms3 18:07 Transition of care: After a detail discussion of the patient's case, care is ms3 transferred to Ajay Sarkar MD. 19:58 Antibiotic administration: Not indicated. Immunization status:. Data reviewed: vital norbert signs, nurses notes, lab test result(s), EKG, radiologic studies, plain films. Consideration of Admission/Observation Escalation of care including admission/observation considered. I considered the following discharge prescriptions or medication management in the emergency department Medications were administered in the Emergency Department. See MAR. Independent interpretation of the following test(s) in the Emergency Department EKG: See my EKG interpretation above. Test considered but Not performed: CT: no ct chest. 12/11 17:07 Order name: Basic Metabolic Panel; Complete Time: 19:50 ms3 12/11 17:07 Order name: CBC with Diff; Complete Time: 18:15 ms3 12/11 17:07 Order name: Troponin HS; Complete Time: 19:50 ms3 12/11 19:58 Order name: Troponin HS: now norbert 12/11 17:07 Order name: XRAY Chest (1 view); Complete Time: 19:50 ms3 12/11 17:07 Order name: EKG; Complete Time: 17:07 ms3 07 17:07 Order name: Cardiac monitoring; Complete Time: 18:40 ms3 12/11 17:07 Order name: EKG - Nurse/Tech; Complete Time: 18:40 ms3 12/11 17:07 Order name: IV Saline Lock; Complete Time: 18:08 ms3 12/11 17:07 Order name: Labs collected and sent; Complete Time: 18:08 ms3 12/11 17:07 Order name: O2 Per Protocol; Complete Time: 18:40 ms3 12/11 17:07 Order name: O2 Sat Monitoring; Complete Time: 18:40 ms3 EC:14 Rate is 76 beats/min. Rhythm is regular. QRS [place] is Normal. DE interval is normal. QRS ms3 interval is normal. Clinical impression: NSR w/ Non-specific ST/T Changes. Interpreted by me. Reviewed by me. 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 norbert - Obesity, unspecified norbert Followup: norbert - With: Private Physician - When: 2 - 3 days - Reason: Recheck today's complaints, Continuance of care, Re-evaluation by your physician Followup: norbert - With: Gab Rajan MD - When: 2 - 3 days - Reason: Recheck today's complaints, Re-evaluation by your physician Discharge Instructions: - Discharge Summary Sheet norbert - Nonspecific Chest Pain, Adult norbert - Hypertension, Adult norbert - Nonspecific Chest Pain, Adult, [id number] norbert - Hypertension, Adult, [id number] norbert - How to Take Your Blood Pressure, [id number] norbert - Managing Your Hypertension norbert - Bleeding Precautions When on Anticoagulant Therapy, Adult norbert Forms: - Medication Reconciliation Form norbert - Thank You Letter norbert - Antibiotic Education norbert - Prescription Opioid Use norbert - Patient Portal Instructions norbert - Leadership Thank You Letter [facility] Prescriptions: - Toprol XL 25 mg Oral Tablet - take 1 tablet ORAL route once daily; 20 tablet; Refills: 0, Product Selection norbert Permitted Signatures: Dispatcher [employer] Ajay Card MD MD norbert Dwaine Wren DO DO ms3 Bhavana Alfonso RN RN ko1 Liliane Hernandez RN RN me1 Corrections: (The following items were deleted from the chart) 16:46 16:46 PMHx: lesions ulnar nerves, popliteal; ko1 ko1
--- NOTE | 2023-12-11 20:03 | ER ---
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 Coronavirus screen: At ko1 this time, the client does not indicate any symptoms associated with coronavirus-19. Ebola Screen: No symptoms or risks identified at this time. Initial Sepsis Screen: Does the patient meet any 2 criteria? No. Patient's initial sepsis screen is negative. Does the patient have a suspected source of infection? No. Patient's initial sepsis screen is negative. Risk Assessment: Do you want to hurt yourself or someone else? Patient reports no desire to harm self or others. Onset of symptoms was December 11, 2023. 16:45 Method Of Arrival: Ambulatory ko1 16:45 Acuity: NANCY 3 ko1 Triage Assessment: 16:46 General: Appears in no apparent distress. General: Behavior is calm, cooperative, ko1 appropriate for age. Pain: Complains of pain in chest. Respiratory: Reports shortness of breath Onset: The symptoms/episode began/occurred gradually, the patient has mild shortness of breath. 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, unknown me1 Historical: - Allergies: 16:46 gluten intolerant; ko1 16:46 Lagevrio (EUA); ko1 16:46 NSAIDS; ko1 16:46 PENICILLINS; ko1 16:46 Phenergan; ko1 - PMHx: 16:46 Ataxia; Atrial fibrillation; Cerebrovascular accident; Chronic pain; depressive ko1 disorder; Hypercholesterolemia; Kidney stone; Hypothyroidism; lesions ulnar nerves; polyneuropathy; pseudotumor cerebri; lesions ulnar nerves; TIA; lesions ulnar nerves; Urinary incontinence; lesions ulnar nerves; - PSHx: 16:46 Appendectomy; kidney stone surgery; Myringotomy and insertion of tympanic ventilation ko1 tube; [place] teeth extraction; - Immunization history:: Adult Immunizations up to date. - Social history:: Smoking status: Patient denies any tobacco usage or history of. Screenin:34 [facility] ED Fall Risk Assessment (Adult) History of falling in the last 3 months, me1 including since admission No falls in past 3 months (0 pts) Confusion or Disorientation No (0 pts) Intoxicated or Sedated No (0 pts) Impaired Gait No (0 pts) Mobility Assist Device Used No (0 pt) Altered Elimination No (0 pt) Score/Fall Risk Level 0 - 2 = Low Risk Maintained a safe environment, Provided non-skid footwear, Hourly rounding (assess needs \T\ fall precautionary measures) done. Abuse screen: Denies threats or abuse. Nutritional screening: No deficits noted. Tuberculosis screening: No symptoms or risk factors identified. Assessment: 19:34 General: Appears uncomfortable, obese, well developed, well nourished, Behavior is me1 calm, cooperative, appropriate for age, Reports CP, SOB for about 2 weeks that worsened yesterday and today. Pain: Complains of pain in anterior aspect of left upper chest and chest Pain does not radiate. Pain currently is 8 out of 10 on a pain scale. Quality of pain is described as sharp, tight Pain began 2-3 days ago. Is continuous. Neuro: Level of Consciousness is awake, alert, obeys commands, Oriented to person, place, time, situation, Appropriate for age. Cardiovascular: Reports chest pain, lightheadedness, shortness of breath, since 2 weeks ago. Worsened yesterday and even more today. c/o left jaw pain as well. Capillary refill < 3 seconds Patient's skin is warm and dry. Respiratory: Reports shortness of breath at rest on exertion since about 2 weeks ago Airway is patent Trachea midline Respiratory effort is even, unlabored, Respiratory pattern is regular, symmetrical, Breath sounds are clear bilaterally. 20:47 Cardiovascular:. me1 Vital Signs: 16:45 BP 143 / 84; Pulse 86; Resp 18; Temp 97.8; Pulse Ox 98% ; ko1 19:20 BP 105 / 67; Pulse 69; Resp 18; Pulse Ox 100% on R/A; me1 20:00 BP 107 / 71; Pulse 72; Resp 17; Pulse Ox 99% on R/A; me1 20:30 BP 105 / 71; Pulse 73; Resp 18; Pulse Ox 98% on R/A; me1 ED Course: 16:27 Patient arrived in ED. mg5 16:36 Dwaine Wren DO is Attending Physician. ms3 16:46 Triage completed. ko1 16:46 Arm band placed on right wrist. Patient placed in waiting room, Patient notified of ko1 wait time. 17:25 XRAY Chest (1 view) In Process Unspecified. EDMS 18:08 Basic Metabolic Panel Sent. bc6 18:08 CBC with Diff Sent. bc6 18:08 Troponin HS Sent. bc6 18:08 Inserted saline lock: 20 gauge in left antecubital area, using aseptic technique. Blood bc6 collected. 18:25 Attending Physician role handed off by Dwaine Wren DO ms3 18:25 Ajay Sarkar MD is Attending Physician. ms3 19:20 Liliane Hernandez, FANTASMA is Primary Nurse. me1 19:34 Allergy band placed. Bed in low position. Call light in reach. Side rails up X 1. me1 Provided Education on: POC. Verbalized understanding. . 19:34 No provider procedures requiring assistance completed. me1 20:01 Gab Rajan MD is Referral Physician. [facility] 20:09 Troponin HS: now Sent. me1 20:48 IV discontinued, intact, bleeding controlled, No redness/swelling at site. Pressure me1 dressing applied. Administered Medications: 20:13 Drug: Potassium PO Effervescent Tablet 50 mEq PO once; dissolve in 4 ounces of water or me1 juice Route: PO; 20:24 Follow up: Response: No adverse reaction me1 20:28 Drug: ToPROL XL PO 25 mg PO once Route: PO; me1 20:30 Follow up: Response: No adverse reaction me1 Medication: 19:34 VIS not applicable for this client. me1 Outcome: 20:02 Discharge ordered by . [facility] 20:48 Discharged to home ambulatory, me1 20:48 Condition: stable 20:48 Discharge instructions given to patient, Instructed on discharge instructions, follow up and referral plans. medication usage, Demonstrated understanding of instructions, follow-up care, medications, Prescriptions given X 1, 20:49 Patient left the ED. me1 Signatures: Dispatcher [employer] Ajay Card MD MD cha Sims, Marcus, DO DO ms3 Bhavana Alfonso, FANTASMA RN ko1 Hilary Wiggins 6 Liliane Hernandez, RN RN me1 Sofia Orellana mg5 Corrections: (The following items were deleted from the chart) 16:46 16:46 PMHx: lesions ulnar nerves, popliteal; ko1 ko1 19:34 16:45 Chief complaint: Patient states: chest pains, short of breath ko1 me1
--- NOTE | 2023-12-12 13:23 | EKG ---
Test Date: 2023-12-11 Test Time: 18:11:01 Manager Care Management: LIZZETTE MEASUREMENT RESULTS: Intervals: Rate: 76 CA: 172 QRSD: 102 QT: 358 QTc: 402 [place]: P: 76 CA: 172 QRS: 68 T: -17 INTERPRETIVE STATEMENTS: Normal sinus rhythm ST & T wave abnormality, consider inferior ischemia ST & T wave abnormality, consider anterior ischemia Abnormal ECG Compared to ECG 11/06/2023 21:20:02 Possible ischemia now present ST (T wave) deviation still present Electronically Signed On 12-12-23 13:21:54 SCREED PERSON by Gab Rajan
== END ==
LOC: ER 16:23
DX: R07.89 Other chest pain (principal); I10 Essential (primary) hypertension; E66.9 Obesity, unspecified; Z79.01 Long term (current) use of anticoagulants; Z88.0 Allergy status to penicillin; Z88.6 Allergy status to analgesic agent; Z88.8 Allergy status to other drugs, medicaments and biological substances; Z91.02 Food additives allergy status; Z86.73 Personal history of transient ischemic attack (TIA), and cerebral infarction without residual deficits
CPT/HCPCS: 36415; 71045; 80048; 84484; 85025; 93005

== ENCOUNTER 2023-12-14 03:15 | Inpatient (IN) | payer OTHER ==
[2023-12-14 04:20] LABS: Absolute Lymphocytes (CBC) 2.8 K/uL (0.7-4.9); Hematocrit 32.8 % (36.0-45.0); Lymphocytes % 29.5 % (15.3-44.8); MPV 8.1 fL (7.6-11.3); Platelets 231 thou/uL (152-406); RBC Red Blood Cell Count 3.42 M/uL (3.86-4.86)
[2023-12-14 04:40] LABS: Potassium 3.1 mEq/L (3.5-5.1); Troponin High Sensitivity 3.5 pg/mL (<58.9)
--- NOTE | 2023-12-14 04:49 | ER ---
Nurse's Notes [facility] Name: Erica Tucker Age: 33 yrs Sex: Female : 1990 Arrival Date: 12/14/2023 Time: 03:15 Bed 8 Private MD: Diagnosis: Chest pain, unspecified;Abnormal electrocardiogram [ECG] [EKG] Presentation: 12/14 03:19 Chief complaint: EMS states: chest pain and sob x 5 days, was seen here in ED few days rv ago, discharged with Metoprolol prescription. EMS gave ASA x4 PO and Zofran. Coronavirus screen: Client presents with at least one sign or symptom that may indicate coronavirus-19. Standard/surgical mask placed on the client. Provider contacted for isolation considerations. Ebola Screen: No symptoms or risks identified at this time. Initial Sepsis Screen: Does the patient meet any 2 criteria? No. Patient's initial sepsis screen is negative. Does the patient have a suspected source of infection? No. Patient's initial sepsis screen is negative. Risk Assessment: Do you want to hurt yourself or someone else? Patient reports no desire to harm self or others. Onset of symptoms was December 14, 2023. 03:19 Method Of Arrival: EMS: [facility] rv 03:19 Acuity: NANCY 3 rv Triage Assessment: 03:21 General: Appears uncomfortable, Behavior is agitated. Pain: Complains of pain in chest. rv Neuro: Level of Consciousness is awake, alert, obeys commands, Oriented to person, place, time, situation. Cardiovascular: Capillary refill < 3 seconds Patient's skin is warm and dry. Cardiovascular: Reports chest pain. Respiratory: Airway is patent Respiratory effort is even, unlabored, Breath sounds are clear bilaterally. GI: No signs and/or symptoms were reported involving the gastrointestinal system. : No signs and/or symptoms were reported regarding the genitourinary system. Derm: Skin is intact. Historical: - Allergies: 03:21 gluten intolerant; rv 03:21 Lagevrio (EUA); rv 03:21 NSAIDS; rv 03:21 PENICILLINS; rv 03:21 Phenergan; rv - PMHx: 03:21 Ataxia; Atrial fibrillation; Cerebrovascular accident; Chronic pain; depressive rv disorder; Hypercholesterolemia; Hypothyroidism; Kidney stone; polyneuropathy; pseudotumor cerebri; TIA; Urinary incontinence; - PSHx: 03:21 Appendectomy; kidney stone surgery; Myringotomy and insertion of tympanic ventilation rv tube; [place] teeth extraction; - Immunization history:: Adult Immunizations up to date. - Social history:: Smoking status: Patient denies any tobacco usage or history of. Screenin:22 [facility] ED Fall Risk Assessment (Adult) History of falling in the last 3 months, rv including since admission No falls in past 3 months (0 pts) Score/Fall Risk Level 0 - 2 = Low Risk Oriented to surroundings, Maintained a safe environment, Educated pt \T\ family on fall prevention, incl call for assistance when getting out of bed, Assessed \T\ reinforced patient's understanding of fall precautions. Abuse screen: Denies threats or abuse. Denies injuries from another. Nutritional screening: No deficits noted. Tuberculosis screening: No symptoms or risk factors identified. Vital Signs: 03:19 BP 94 / 83; Pulse 65; Resp 16; Temp 98.6; Pulse Ox 100% on R/A; Weight 127.01 kg; rv Height 5 ft. 7 in. ; 04:09 BP 112 / 72; Pulse 73; Resp 17; Pulse Ox 99% on R/A; rv 06:25 BP 114 / 75; Pulse 71; Resp 19; Temp 98; Pulse Ox 99% on R/A; rv 03:19 Body Mass Index 43.85 (127.01 kg, 170.18 cm) rv [place] Coma Score: 06:25 Eye Response: spontaneous(4). Motor Response: obeys commands(6). Verbal Response: rv oriented(5). Total: 15. ED Course: 03:18 Patient arrived in ED. rv1 03:18 Freddy Matt, FANTASMA is Primary Nurse. rv 03:19 Dwaine Wren DO is Attending Physician. ms3 03:20 Triage completed. rv 03:22 Arm band placed on right wrist. rv 03:22 Patient has correct armband on for positive identification. Client placed on continuous rv cardiac and pulse oximetry monitoring. NIBP monitoring applied. panel monitor on. 03:22 No provider procedures requiring assistance completed. Maintain EMS IV. Dressing rv intact. Good blood return noted. Site clean \T\ dry. Gauge \T\ site: g20 lac. 04:26 XRAY Chest (1 view) In Process Unspecified. EDMS 04:48 Livan Chou MD is Hospitalizing Provider. ms3 06:26 Patient admitted, IV remains in place. rv Administered Medications: No medications were administered Medication: 03:22 VIS not applicable for this client. rv Outcome: 04:49 Decision to Hospitalize by Provider. ms3 06:26 Admitted to Med/surg accompanied by nurse, via wheelchair, room 218, with chart, Report rv called to ALYCE MEEK 06:26 Condition: good 06:26 Instructed on the need for admit, 06:55 Patient left the ED. kd3 Signatures: Dispatcher [employer] EDMS Freddy Matt, RN RN rv Dwaine Wren DO DO ms3 Bruna Finley RN RN kd3 Cris Galloway rv1
--- NOTE | 2023-12-14 04:49 | EDPHYS ---
Physician Documentation [facility] Name: Erica Tucker Age: 33 yrs Sex: Female : 1990 Arrival Date: 12/14/2023 Time: 03:15 Bed 8 Private MD: ED Physician Dwaine Wren HPI: 12/14 03:44 This 33 yrs old Female presents to ER via EMS with complaints of chest pain. ms3 03:44 [id number] female with past medical history of ataxia, atrial fibrillation, ms3 CVA, chronic pain,, hypercholesterolemia, hypothyroid, polyneuropathy, kidney stones, pseudotumor cerebri who presents to the emergency department for chest pain that is been ongoing for 5 days. Patient states pain is 10/10 and squeezing. Patient denies any alleviating or inciting factors.. Historical: - Allergies: 03:21 gluten intolerant; rv 03:21 Lagevrio (EUA); rv 03:21 NSAIDS; rv 03:21 PENICILLINS; rv 03:21 Phenergan; rv - PMHx: 03:21 Ataxia; Atrial fibrillation; Cerebrovascular accident; Chronic pain; depressive rv disorder; Hypercholesterolemia; Hypothyroidism; Kidney stone; polyneuropathy; pseudotumor cerebri; TIA; Urinary incontinence; - PSHx: 03:21 Appendectomy; kidney stone surgery; Myringotomy and insertion of tympanic ventilation rv tube; Thicket teeth extraction; - Immunization history:: Adult Immunizations up to date. - Social history:: Smoking status: Patient denies any tobacco usage or history of. ROS: 03:44 Constitutional: Negative for fever, and chills. ENT: Negative for injury, pain, and ms3 discharge, Neck: Negative for injury, pain, and swelling, 03:44 Respiratory: Negative for shortness of breath, cough, wheezing, and pleuritic chest pain, Abdomen/GI: Negative for abdominal pain, nausea, vomiting, diarrhea, and constipation, MS/Extremity: Negative for injury and deformity, Skin: Negative for injury, rash, and discoloration, 03:44 Cardiovascular: Positive for chest pain, 03:44 All other systems are negative, Exam: 03:44 Constitutional: This is a well developed, well nourished patient who is awake, alert, ms3 and in no acute distress. Head/Face: Normocephalic, atraumatic. Neck: Trachea midline, no cervical lymphadenopathy. Supple, full range of motion without nuchal rigidity, or vertebral point tenderness. No Meningismus. Chest/axilla: Normal chest wall appearance and motion. Nontender with no deformity. Cardiovascular: Regular rate and rhythm with a normal S1 and S2. No gallops, murmurs, or rubs. Normal PMI, no JVD. No pulse deficits. Respiratory: Lungs have equal breath sounds bilaterally, clear to auscultation and percussion. No rales, rhonchi or wheezes noted. No increased work of breathing, no retractions or nasal flaring. Abdomen/GI: Soft, non-tender, with normal bowel sounds. No distension or tympany. No guarding or rebound. No evidence of tenderness throughout. Skin: Warm, dry with normal turgor. Normal color with no rashes, no lesions, and no evidence of cellulitis. MS/ Extremity: Pulses equal, no cyanosis. Neurovascular intact. Full, normal range of motion. 03:53 ECG was reviewed by the Attending Physician. ms3 Vital Signs: 03:19 BP 94 / 83; Pulse 65; Resp 16; Temp 98.6; Pulse Ox 100% on R/A; Weight 127.01 kg; rv Height 5 ft. 7 in. ; 04:09 BP 112 / 72; Pulse 73; Resp 17; Pulse Ox 99% on R/A; rv 06:25 BP 114 / 75; Pulse 71; Resp 19; Temp 98; Pulse Ox 99% on R/A; rv 03:19 Body Mass Index 43.85 (127.01 kg, 170.18 cm) rv Jacob Coma Score: 06:25 Eye Response: spontaneous(4). Motor Response: obeys commands(6). Verbal Response: rv oriented(5). Total: 15. MDM: 03:44 Differential diagnosis: abnormal EKG, acute myocardial infarction, chest wall pain. ms3 03:48 Patient medically screened. ms3 04:42 HEART Score: History: Slightly Suspicious (0), ECG: Non specific repolarization ms3 disturbance / LBTB / PM (1), Age: < or = 45 years (0), Risk Factors: 1 or 2 risk factors (1), [Hypercholesterolemia] Troponin: < or = 1 x Normal Limit (0), Total Score = 2. 04:49 Data reviewed: vital signs, nurses notes, lab test result(s), EKG, radiologic studies, ms3 and as a result, I will admit patient. Consideration of Admission/Observation. Consideration of Admission/Observation Escalation of care including admission/observation considered. Management of patient was discussed with the following: Hospitalist: Dr Sifuentes. 04:53 Independent interpretation of the following test(s) in the Emergency Department EKG: ms3 See my EKG interpretation above X-Ray: My interpretation is CXR image reviewed does not reveal PNA. Care significantly affected by the following chronic conditions: HLD. Counseling: I had a detailed discussion with the patient and/or guardian regarding the historical points, exam findings, and any diagnostic results supporting the discharge/admit diagnosis, lab results, radiology results, the need for further work-up and treatment in the hospital. ED course: Discussed labs and EKG with patient. Patient still complaining of chest pain. Nonspecific ST changes on EKG. Will place patient observation.. 12/14 03:39 Order name: Basic Metabolic Panel; Complete Time: 04:41 ms3 12/14 03:39 Order name: CBC with Diff; Complete Time: 04:41 ms3 12/14 03:39 Order name: NT PRO-BNP; Complete Time: 04:41 ms3 12/14 03:39 Order name: Troponin HS; Complete Time: 04:41 ms3 12/14 05:41 Order name: Urinalysis w/ reflexes EDMS 12/14 05:41 Order name: Basic Metabolic Panel EDMS 12/14 05:41 Order name: Basic Metabolic Panel EDMS 12/14 05:43 Order name: Troponin High Sensitivity EDMS 12/14 03:39 Order name: XRAY Chest (1 view) ms3 12/14 05:49 Order name: Echo with Doppler EDMS 12/14 03:39 Order name: EKG; Complete Time: 03:40 ms3 12/14 03:39 Order name: Cardiac monitoring; Complete Time: 03:42 ms3 12/14 03:39 Order name: EKG - Nurse/Tech; Complete Time: 03:42 ms3 12/14 03:39 Order name: IV Saline Lock; Complete Time: 03:42 ms3 12/14 03:39 Order name: Labs collected and sent; Complete Time: 03:42 ms3 12/14 03:39 Order name: O2 Per Protocol; Complete Time: 03:42 ms3 02 03:39 Order name: O2 Sat Monitoring; Complete Time: 03:42 ms3 EC:53 Rate is 62 beats/min. Rhythm is regular. QRS [place] is Normal. [place] interval is normal. QRS ms3 interval is normal. Clinical impression: NSR w/ Non-specific ST/T Changes. Interpreted by me. Reviewed by me. Administered Medications: No medications were administered Disposition Summary: 12/14/23 04:49 Hospitalization Ordered Notes: Hospitalization Status: Observation ms3 Provider: Livan Chou ms3 Location: Telemetry/MedSurg (observation) ms3 Condition: Stable ms3 Problem: new ms3 Symptoms: are unchanged ms3 Bed/Room Type: Standard ms3 Room Assignment: 218(12/14/23 05:51) rv1 Diagnosis - Chest pain, unspecified ms3 - Abnormal electrocardiogram [ECG] [EKG] ms3 Forms: - Medication Reconciliation Form ms3 - SBAR form ms3 - Leadership Thank You Letter ms3 Signatures: Dispatcher [employer] Freddy Evans RN RN rv Dwaine Wren DO DO ms3 Cris Galloway rv1 Corrections: (The following items were deleted from the chart) 03:48 03:44 ECG was reviewed by the Attending Physician. ms3 ms3 05:51 04:49 ms3 rv1
--- NOTE | 2023-12-14 06:03 | P.HP ---
Certification for Inpatient Patient admitted to: Observation With expected LOS: <2 Midnights Practitioner: I am a practitioner with admitting privileges, knowledge of patient current condition, hospital course, and medical plan of care. Services: Services provided to patient in accordance with Admission requirements found in Title 42 Section 412.3 of the Code of Federal Regulations Patient History Date of Service: 12/14/23 Reason for admission: Chest pain History of Present Illness: 52-year-old female with history of depression, A-fib on Eliquis, pseudotumor cerebri, ARY on CPAP presented to the ED with 5 days of left-sided subcostal chest pain that radiated to the left shoulder, associated with shortness of breath and nausea. She was seen in the ED 3 days ago and was discharged on metoprolol, Zofran and aspirin but she states chest pain has remained constant. She also had episodes of intermittent swelling of her hands and legs and admits to paroxysmal nocturnal dyspnea and orthopnea. She is not able to walk for distance due to chest pain. She denies any cough, fever, vomiting, palpitation or diaphoresis. On arrival to the ED her vital signs are within normal limits. Only abnormal lab finding is potassium of 3.1. Chest x-ray was unremarkable. EKG is unchanged from 3 days ago. Allergies gluten Allergy (Verified 10/16/22 19:34) Nausea/Vomiting Penicillins Allergy (Verified 10/16/22 19:34) Hives/Rash prednisone Allergy (Verified 10/16/22 19:34) RAPID HEART RATE promethazine [From Phenergan] Allergy (Verified 10/16/22 19:34) RESTLESS LEGS Home Medications: Albuterol Inhaler [Ventolin Inhaler*] 1 - 2 puff IH Q4HP PRN 10/16/22 Apixaban [Eliquis] 5 mg PO BID 10/16/22 Budesonide/Formoterol Fumarate [Budesonide-Formoterol 160-4.5] 2 puff IH PRN 10/16/22 Fluoxetine HCl [Prozac] 40 mg PO BEDTIME 10/16/22 Gabapentin 300 mg PO TID 10/16/22 Lamotrigine [Lamictal] 50 mg PO BEDTIME 10/16/22 Levothyroxine Sodium 50 mcg PO DAILY 10/16/22 Montelukast Sodium 10 mg PO DAILY 10/16/22 Pantoprazole [Protonix Tab*] 40 mg PO DAILY 10/16/22 Quetiapine Fumarate [Seroquel] 200 mg PO BEDTIME 10/16/22 acetaZOLAMIDE [Acetazolamide ER] 500 mg PO BID 10/16/22 Calcium Carbonate/Mag Carb [Magnebind 400 Tablet] 1 each PO DAILY 11/06/23 Cholecalciferol (Vitamin D3) [D3-5000] 1 tab PO DAILY 11/06/23 Hydrocodone 10/APAP 325 [[place] 10/325*] 1 tab PO Q6HR PRN 11/06/23 Iron 64 mg PO DAILY 11/06/23 methocarbamoL [Robaxin*] 750 mg PO TID PRN 11/06/23 modafiniL [Modafinil] 200 mg PO DAILY 11/06/23 Roflumilast 500 mcg PO DAILY #30 tab 11/07/23 - Past Medical/Surgical History Diabetic: No -: Hypothyroidism -: Afib -: CVA -: Obesity -: Depression -: Hypercholesterolemia -: pseudotumor cerebri -: TIA -: Lesions on ulnar nerves -: Polyneuropathy -: Chronic pain -: myringotomy -: wisdom teeth extraction -: lithotrypsy -: kidney stent - Family History Father -: Heart disease, Stroke Mother -: Hypertension, Other (see notes) Notes: Depression - Social History Alcohol use: No CD- Drugs: No Caffeine use: Yes Review of Systems 10-point ROS is otherwise unremarkable Physical Examination - Physical Exam General: Alert, In no apparent distress, Oriented x3 HEENT: Atraumatic, Normocephalic, PERRLA Neck: Supple, JVD not distended Respiratory: Clear to auscultation bilaterally Cardiovascular: No edema, Normal S1 S2 Gastrointestinal: Normal bowel sounds, Soft and benign, Non-distended Musculoskeletal: No swelling, No erythema, Other (reproducible chest pain) Integumentary: No rashes Neurological: Normal strength at 5/5 x4 extr - Studies Laboratory Data (last 24 hrs) 12/14/23 12/14/23 03:44 03:44 WBC 9.50 Hgb 11.6 L Hct 32.8 L Plt Count 231 Sodium 141 Potassium 3.1 L BUN 11 Creatinine 0.79 Glucose 116 H Assessment and Plan - Plan Chest pain, atypical A-fib on Eliquis Pseudotumor cerebri ARY on CPAP Depression Plan Admit to observation Monitor on telemetry Repeat troponin NPO and defer cardiology consult to daytime team Follow-up echo PRN [place] and Zofran Aspirin and sublingual nitro Resumed home meds Diamox, Eliquis, Seroquel, gabapentin, fluoxetine, lamotrigine, Synthroid - Advance Directives Does patient have a Living Will: No Does patient have a Durable POA for Healthcare: No
[2023-12-14] MEDS ORDERED: NITROGLYCERIN 0.4 MG/TAB SL PRN (06:10)
[2023-12-14] MEDS: ONDANSETRON 4 MG/2 ML VIAL IV PRN (08:10)
[2023-12-14] MEDS: POTASSIUM CL SA 10 MEQ TAB PO ONE ×2 (08:11→16:47)
[2023-12-14] MEDS: acetaZOLAMIDE 250 MG TAB PO SCH (08:11)
[2023-12-14] MEDS: GABAPENTIN 300 MG CAP PO SCH (08:11)
[2023-12-14] MEDS: FLUOXETINE 20 MG CAP PO SCH (08:11)
[2023-12-14] MEDS: LEVOTHYROXINE SOD 0.05 MG TABLET PO SCH (08:11)
[2023-12-14] MEDS: HYDROCODONE/APAP 5/325 MG TAB PO PRN (08:12)
[2023-12-14] MEDS: ASPIRIN EC 81 MG TAB PO SCH (08:14)
--- NOTE | 2023-12-14 08:16 | P.PN ---
Subjective Date of Service: 12/15/23 Chief Complaint: Chest pain Reported epigastric, abdominal pain, chest pain, CT PE negative, CT of the abdomen shows right hydronephrosis, history of ureteral - Physical Exam General: Alert, In no apparent distress, Oriented x3 HEENT: Atraumatic, Normocephalic, PERRLA Neck: Supple, JVD not distended Respiratory: Clear to auscultation bilaterally Cardiovascular: No edema, Normal S1 S2 Gastrointestinal: Normal bowel sounds, Soft and benign, Non-distended Musculoskeletal: No swelling, No erythema, Other (reproducible chest pain) Integumentary: No rashes Review of Systems per HPI Physical Examination - Vital Signs Temperature: 97.2 F Blood Pressure: 125/77 Pulse: 66 Respirations: 17 Pulse Ox (%): 98 - Studies Laboratory Data (last 24 hrs) 12/14/23 12/14/23 03:44 03:44 WBC 9.50 Hgb 11.6 L Hct 32.8 L Plt Count 231 Sodium 141 Potassium 3.1 L BUN 11 Creatinine 0.79 Glucose 116 H Assessment And Plan - Plan Assessment plan Mild to moderate right hydronephrosis Prior ureteral stent placement CTA of the abdomen pelvis IMPRESSION: Mild to moderate right-sided hydroureteronephrosis despite the presence of the right ureteral stent. This could indicate stent dysfunction CT PE protocol negative for PE Chest pain, atypical History A-fib on Eliquis Admit to observation trend troponins, telemetry Troponin 3.5, BNP 106 PRN [place] and Zofran Aspirin and sublingual nitro CT PE protocol rule out PE IMPRESSION: Negative for pulmonary embolism to the level of the segmental pulmonary arteries. The subsegmental pulmonary arteries cannot be adequately assessed. Tiny bilateral pleural effusions EKG Rate is 62 beats/min Sinus rhythm is regular. QRS [place] is Normal. [place] interval is normal. QRS interval is normal. Clinical impression: NSR w/ Non- specific ST/T Changes Hypokalemia Trend electrolytes replace as needed Pseudotumor cerebri Hypothyroidism History of CVA with ataxia, History of chronic pain hypercholesterolemia hypothyroid polyneuropathy History kidney stones Resumed home meds Diamox, Eliquis, Seroquel, gabapentin, fluoxetine, lamotrigine, Synthroid ARY on CPAP Depression Full code DVT Lovenox Diet regular Discharge Plan: Home - Code Status/Comfort Care Code Status: Full Code Critical Care: No Time Spent Managing PTS Care (In Minutes): 35
--- NOTE | 2023-12-14 08:28 | P.DS ---
Admission Date: 12/14/23 Discharge Date: 12/15/23 Reason for Admission: Chest pain Brief History of Present Illness: 33-year-old female with history of depression, A-fib on Eliquis, pseudotumor cerebri, ARY on CPAP presented to the ED with 5 days of left-sided subcostal chest pain that radiated to the left shoulder, associated with shortness of breath and nausea. She was seen in the ED 3 days ago and was discharged on metoprolol, Zofran and aspirin but she states chest pain has remained constant. She also had episodes of intermittent swelling of her hands and legs and admits to paroxysmal nocturnal dyspnea and orthopnea. She is not able to walk for distance due to chest pain. She denies any cough, fever, vomiting, palpitation or diaphoresis. On arrival to the ED her vital signs are within normal limits. Only abnormal lab finding is potassium of 3.1. Chest x-ray was unremarkable. EKG is unchanged from 3 days ago. Allergies - Physical Exam General: Alert, In no apparent distress, Oriented x3 HEENT: Atraumatic, Normocephalic, PERRLA Neck: Supple, JVD not distended Respiratory: Clear to auscultation bilaterally Cardiovascular: No edema, Normal S1 S2 Gastrointestinal: Normal bowel sounds, Soft and benign, Non-distended Musculoskeletal: No swelling, No erythema, Other (reproducible chest pain) Hospital Course: 33 year-old female patient presented with chest pain. Was noted to have negative cardiac enzymes. EKG normal sinus rhythm rate 70. Condition improved with as needed analgesics. Patient tolerating diet, stable for discharge to home with follow-up appointment with primary care physician, cardiology PROBLEM: Mild to moderate right hydronephrosis Prior ureteral stent placement Atypical chest History of A-fib RVR on Eliquis History of chronic pain CTA of the abdomen pelvis IMPRESSION: Mild to moderate right-sided hydroureteronephrosis despite the presence of the right ureteral stent. This could indicate stent dysfunction CT PE protocol negative for PE Follow-up with urology after hospital discharge Follow-up with cardiology in 1 week Resume home cardiac medications Continue home medicines as previously prescribed GOAL: Clear understanding of disease process INSTRUCTIONS: Physician Discharge Instructions: -DC IV and DC home -Follow-up with PCP in 1 to 2 weeks -Please call Dr. Lloyd at [phone] if any questions regarding hospital stay -Please call nursing station at [phone] if any nursing or medication questions -Return to the emergency room if symptoms worsen Diet: ADA, low sodium Activity: Fall precautions DME: Date Ordered: Name of Company: [employer] Services Needed: None Date or Referral: IMMUNIZATION Influenza Vaccine Indicated: Influenza Vaccine Given: Date Given: Pneumonia Vaccine Indicated: Pneumonia Vaccine Given: Date Given <Eileen Grider - Last Filed: 12/15/23 08:23> Admission Date: 12/14/23 Discharge Date: 12/16/23 <Stephany Lloyd - Last Filed: 12/16/23 15:25> Disposition: ROUTINE DISCHARGE Discharge Condition: FAIR Vital Signs/Physical Exam: Temp Pulse Resp BP Pulse Ox 97.2 F 66 17 125/77 98 12/14/23 08:23 12/14/23 08:23 12/14/23 08:23 12/14/23 08:23 12/14/23 08:23 Laboratory Data at Discharge: WBC 9.50 thou/uL (4.3-10.9) 12/14/23 03:44 Hgb 11.6 g/dL (12.0-15.0) L 12/14/23 03:44 Hct 32.8 % (36.0-45.0) L 12/14/23 03:44 Plt Count 231 thou/uL (152-406) 12/14/23 03:44 Sodium 141 mEq/L (136-145) 12/14/23 03:44 Potassium 3.1 mEq/L (3.5-5.1) L 12/14/23 03:44 BUN 11 mg/dL (7-18) 12/14/23 03:44 Creatinine 0.79 mg/dL (0.55-1.02) 12/14/23 03:44 Glucose 116 mg/dL (74-106) H 12/14/23 03:44 <Eileen Grider - Last Filed: 12/15/23 08:23> Vital Signs/Physical Exam: Temp Pulse Resp BP Pulse Ox 97.9 F 87 16 118/75 97 12/16/23 12:58 12/16/23 12:58 12/16/23 12:58 12/16/23 12:58 12/16/23 12:58 Laboratory Data at Discharge: WBC 11.50 thou/uL (4.3-10.9) H 12/15/23 03:01 Hgb 12.0 g/dL (12.0-15.0) 12/15/23 03:01 Hct 34.7 % (36.0-45.0) L 12/15/23 03:01 Plt Count 242 thou/uL (152-406) 12/15/23 03:01 Sodium 138 mEq/L (136-145) 12/16/23 05:05 Potassium 3.4 mEq/L (3.5-5.1) L 12/16/23 10:30 BUN 13 mg/dL (7-18) 12/16/23 05:05 Creatinine 0.93 mg/dL (0.55-1.02) 12/16/23 05:05 Glucose 133 mg/dL (74-106) H 12/16/23 05:05 Magnesium 2.2 mg/dL (1.6-2.4) 12/15/23 03:01 Total Bilirubin 0.6 mg/dL (0.2-1.0) 12/15/23 03:01 AST 19 U/L (15-37) 12/15/23 03:01 ALT 39 U/L (13-56) 12/15/23 03:01 Alkaline Phosphatase 114 U/L (45-117) 12/15/23 03:01 <Stephany Lloyd - Last Filed: 12/16/23 15:25> Diet: AHA Activity: Weight bearing as tolerated Time spent managing pt's care (in minutes): 55 <Eileen Grider - Last Filed: 12/15/23 08:23> <Stephany Lloyd - Last Filed: 12/16/23 15:25> Home Medications: Albuterol Inhaler [Ventolin Inhaler*] 1 - 2 puff IH Q4HP PRN 10/16/22 Apixaban [Eliquis] 5 mg PO BID 10/16/22 Budesonide/Formoterol Fumarate [Budesonide-Formoterol 160-4.5] 2 puff IH DAILY 10/16/22 Fluoxetine HCl [Prozac] 40 mg PO BEDTIME 10/16/22 Gabapentin 300 mg PO TID 10/16/22 Lamotrigine [Lamictal] 50 mg PO BEDTIME 10/16/22 Levothyroxine Sodium 50 mcg PO DAILY 10/16/22 Montelukast Sodium 10 mg PO DAILY 10/16/22 Pantoprazole [Protonix Tab*] 40 mg PO DAILY 10/16/22 Quetiapine Fumarate [Seroquel] 100 mg PO BEDTIME 10/16/22 acetaZOLAMIDE [Acetazolamide ER] 1,000 mg PO DAILY 10/16/22 Cholecalciferol (Vitamin D3) [D3-5000] 1 tab PO DAILY 11/06/23 Iron 64 mg PO DAILY 11/06/23 methocarbamoL [Robaxin*] 750 mg PO TID PRN 11/06/23 modafiniL [Modafinil] 200 mg PO DAILY 11/06/23 Celecoxib 400 mg PO DAILY 12/14/23 Magnesium Oxide [Mag 0X*] 400 mg PO BEDTIME 12/14/23 Ondansetron HCl 4 mg PO Q8H PRN 12/14/23 Hydrocodone 10/APAP 325 [[place] 10/325*] 1 tab PO Q8HR #30 tab 12/16/23 Hydrocodone 10/APAP 325 [[place] 10/325] 1 tab PO Q8H PRN #30 tab 12/16/23 Metoprolol Succinate [Toprol Xl*] 25 mg PO Q12HR 6AM AND 6PM #60 tab 12/16/23 New Medications: Hydrocodone 10/APAP 325 [[place] 10/325] 1 tab PO Q8H PRN #30 tab PRN Reason: Pain Hydrocodone 10/APAP 325 [[place] 10/325*] 1 tab PO Q8HR #30 tab Metoprolol Succinate [Toprol Xl*] 25 mg PO Q12HR 6AM AND 6PM #60 tab Physician Discharge Instructions: 33 year-old female patient presented with chest pain. Was noted to have negative cardiac enzymes. EKG normal sinus rhythm rate 70. Condition improved with as needed analgesics. Patient tolerating diet, stable for discharge to home with follow-up appointment with primary care physician, cardiology PROBLEM: Mild to moderate right hydronephrosis Prior ureteral stent placement adbominal pain Acute cystitis with hematuria Atypical chest History of A-fib RVR on Eliquis (NSR on EKG) History of chronic pain IV ciprofloxacin for acute cystitis CTA of the abdomen pelvis IMPRESSION: Mild to moderate right-sided hydroureteronephrosis despite the presence of the right ureteral stent. This could indicate stent dysfunction CT PE protocol negative for PE Follow-up with urology after hospital discharge Follow-up with urology after just Follow-up with cardiology after discharge Resume home cardiac medications Continue home medicines as previously prescribed GOAL: Clear understanding of disease process INSTRUCTIONS: Physician Discharge Instructions: -Follow-up with PCP in 1 to 2 weeks -Please call Dr. Lloyd at [phone] if any questions regarding hospital stay -Please call nursing station at [phone] if any nursing or medication questions -Return to the emergency room if symptoms worsen Followup: Gab Rajan MD [ACTIVE - CAN ADMIT] - Unknown,U [ACTIVE - CAN ADMIT] - Juan Pyle [ACTIVE - CAN ADMIT] -
[2023-12-14] MEDS: APIXABAN 5 MG TABLET PO SCH (09:00)
[2023-12-14] MEDS: lamoTRIgine 25 MG TAB PO SCH (09:00)
[2023-12-14] MEDS ORDERED: ALBUTEROL 2.5 MG/3 ML NEB SOL NEB PRN (09:33)
[2023-12-14] MEDS: dexAMETHasone 4 MG/ML VIAL IV ONE (10:00)
[2023-12-14] MEDS: SCOPOLAMINE HYDROBROMIDE PATCH TD ONE (10:01)
[2023-12-14 10:03] LABS: Urine Bacteria <20 /HPF (<20); Urine Mucus 4+ /HPF (None Seen); Urine RBC >50 /HPF (None Seen)
[2023-12-14 10:07] LABS: Specific Gravity 1.023 (1.005-1.030); Urine Clarity Turbid (Clear); Urine Color Light-Orange (Yellow)
[2023-12-14 10:08] LABS: Urine Bilirubin 3+ (Negative); Urine Blood 3+ (Negative); Urine Glucose Negative (Negative); Urine Protein 2+ (Negative); Urine Urobilinogen Normal (Normal)
[2023-12-14 10:09] LABS: Barbiturates NEGATIVE (NEGATIVE); Benzodiazepines NEGATIVE (NEGATIVE); Cocaine NEGATIVE (NEGATIVE); METHAMPHETAM NEGATIVE (NEGATIVE); Methadone NEGATIVE (NEGATIVE); Opiates POSITIVE (NEGATIVE); Phencyclidine NEGATIVE (NEGATIVE); THC Cannibis NEGATIVE (NEGATIVE)
[2023-12-14 10:59] VITALS: BMI 43.8
--- NOTE | 2023-12-14 11:44 | RAD REPORT ---
EXAM DESCRIPTION: CT - Chest Angio - 12/14/2023 11:32 am CLINICAL HISTORY: chest pain COMPARISON: Thorax Wo Con dated 11/07/2023; Thorax W/ Con dated 09/10/2022 TECHNIQUE: Dynamically enhanced axial 3 mm thick images of the chest were obtained during administra tion of <100> mL Isovue 370 IV contrast. Coronal and oblique reconstruction images were generated and reviewed. Exam utilizes a protocol for optimal evaluation of pulmonary arterial tree. Maximum intensity projections 3D imaging was utilized All CT scans are performed using dose optimization technique as appropriate and may include automated exposure control or mA/KV adjustment according to patient size. FINDINGS: Chest Wall: No suspicious thyroid nodules or pathologic lymphadenopathy. Lungs: No acute abnormality. Pleura: Tiny bilateral pleural effusions. Mediastinum/magaly: No pathologic lymphadenopathy. Pulmonary arteries/Aorta: Suboptimal opacification of the pulmonary arteries. Most of the contrast is within the aorta. No aortic aneurysm. Heart: No significant pericardial effusion. Normal heart size. Upper abdomen: No acute abnormality. Bones: No acute abnormality. Remote right-sided rib fractures. IMPRESSION: Negative for pulmonary embolism to the level of the segmental pulmonary arteries. The m[place]an[place] bsegmental pulmonary arteries cannot be adequately assessed. Tiny bilateral pleural effusions.
--- NOTE | 2023-12-14 11:47 | RAD REPORT ---
EXAM DESCRIPTION: CTAbdomen Pelvis W Contrast - 12/14/2023 11:32 am CLINICAL HISTORY: back/flank pain COMPARISON: Abdomen Pelvis W Contrast dated 04/01/2023; Abdomen Pelvis W Contrast dated ; Abdomen Pelvis W Contrast dated 10/20/2022; Abdomen Pelvis W Contrast dated 10/16/2022; Stone Protocol dated 11/14/2023 TECHNIQUE: CT of the abdomen and pelvis was performed. All CT scans are performed using dose optimization technique as appropriate and may include automated exposure control or mA/KV adjustment according to patient size. FINDINGS: Lower chest: Trace pleural effusions. Liver: Hepatic steatosis. Biliary: No biliary ductal dilatation. Stomach: No significant focal abnormality. Duodenum: No significant focal abnormality. Pancreas: No significant abnormality. Spleen: Splenomegaly. Adrenal: No suspicious lesions. Kidney/ureter: Mild right-sided hydronephrosis despite the presence of the right ureteral stent. No r enal calculi. Too small to characterize and/or benign appearing renal lesions are noted. Retroperitoneum: No retroperitoneal adenopathy. Vascular: No aneurysm. Bowel: No significant focal abnormality. No appendix identified . Peritoneum: No ascites or free air. Bladder: Right ureteral stent terminates in the bladder. The bladder is decompressed. Reproductive: No adnexal masses. Bones: No acute fracture. Other: n/a IMPRESSION: Mild to moderate right-sided hydroureteronephrosis despite the presence of the right ure teral stent. This could indicate stent dysfunction.
[2023-12-14] MEDS ORDERED: GABAPENTIN 300 MG CAP PO SCH (14:00)
[2023-12-14] MEDS: FENTANYL CITR 100 MCG/2 ML IV PRN (15:23)
[2023-12-14] MEDS ORDERED: HYDROCODONE/APAP 10/325 TAB PO SCH (17:00)
[2023-12-14] MEDS: MORPHINE 4 MG/ML SYR IV PRN (18:41)
[2023-12-14] MEDS ORDERED: HOME MED 1 EA UNK (Quetiapine Fumarate [Seroquel] 200 MG Tablet) PO SCH (21:00)
[2023-12-14] MEDS ORDERED: HOME MED 1 EA UNK (Fluoxetine Hcl [Prozac] 40 MG Capsule) PO SCH (21:00)
[2023-12-14] MEDS ORDERED: lamoTRIgine 25 MG TAB PO SCH (21:00)
[2023-12-14] MEDS ORDERED: APIXABAN 5 MG TABLET PO SCH (21:00)
[2023-12-14] MEDS: DULERA 200/5 (MOMETASONE/FORMOTEROL) INHALER IH SCH (21:04)
[2023-12-14] MEDS: QUETIAPINE 100MG TAB PO SCH (21:05)
[2023-12-14] MEDS: Enoxaparin 120 MG/0.8 ML SYR SQ SCH (21:07)
[2023-12-14] MEDS: methocarbamoL 750 MG TAB PO PRN (21:13)
[2023-12-15 03:26] LABS: Hematocrit 34.7 % (36.0-45.0); Lymphocytes % 35.2 % (15.3-44.8); MCV 97.5 fL (80-100); MPV 7.7 fL (7.6-11.3); Platelets 242 thou/uL (152-406); RBC Red Blood Cell Count 3.56 M/uL (3.86-4.86)
[2023-12-15 03:55] LABS: Albumin 3.7 g/dL (3.4-5.0); Bilirubin Total 0.6 mg/dL (0.2-1.0); Magnesium 2.2 mg/dL (1.6-2.4); Potassium 3.5 mEq/L (3.5-5.1); Protein, Total 7.1 g/dL (6.4-8.2); Troponin High Sensitivity 4.3 pg/mL (<58.9)
[2023-12-15] MEDS: PANTOPRAZOLE 40MG TABLET PO SCH (05:39)
--- NOTE | 2023-12-15 08:23 | P.PN ---
Subjective Date of Service: 12/15/23 Chief Complaint: Chest pain Reported epigastric, abdominal pain, chest pain, as needed analgesics CT PE negative, CT of the abdomen shows right hydronephrosis, history of ureteral stent - Physical Exam General: Alert, In no apparent distress, Oriented x3 HEENT: Atraumatic, Normocephalic, PERRLA Neck: Supple, JVD not distended Respiratory: Clear to auscultation bilaterally Cardiovascular: No edema, Normal S1 S2 Gastrointestinal: Normal bowel sounds, Soft and benign, Non-distended Musculoskeletal: No swelling, No erythema, Other (reproducible chest pain) Integumentary: No rashes Review of Systems per HPI Physical Examination - Vital Signs Temperature: 97.2 F Blood Pressure: 125/77 Pulse: 66 Respirations: 17 Pulse Ox (%): 98 - Studies Laboratory Data (last 24 hrs) 12/14/23 15:10 Potassium 3.3 L Assessment And Plan - Plan Assessment plan Mild to moderate right hydronephrosis acute Right ureteral stent obstruction Prior ureteral stent placement CTA of the abdomen pelvis IMPRESSION: Mild to moderate right-sided hydroureteronephrosis despite the presence of the right ureteral stent. This could indicate stent dysfunction CT PE protocol negative for PE Acute cystitis with hematuria acute IV Cipro, IV fluid Chest pain, atypical History A-fib on Eliquis Admit to observation trend troponins, telemetry, Lovenox 1 mg/kg Troponin 3.5, BNP [address] and Zofran Aspirin and sublingual nitro CT PE protocol rule out PE IMPRESSION: Negative for pulmonary embolism to the level of the segmental pulmonary arteries. The subsegmental pulmonary arteries cannot be adequately assessed. Tiny bilateral pleural effusions EKG Rate is 62 beats/min Sinus rhythm is regular. QRS Shell is Normal. NV interval is normal. QRS interval is normal. Clinical impression: NSR w/ Non- specific ST/T Changes Hypokalemia improved Trend electrolytes replace as needed Pseudotumor cerebri Hypothyroidism History of CVA with ataxia, History of chronic pain hypercholesterolemia hypothyroid polyneuropathy History kidney stones Resumed home meds Diamox, Eliquis, Seroquel, gabapentin, fluoxetine, lamotrigine, Synthroid ARY on CPAP Depression Full code DVT Lovenox Diet regular Discharge Plan: Home Critical Care: No Time Spent Managing PTS Care (In Minutes): 35
[2023-12-15] MEDS: POTASSIUM CL SA 10 MEQ TAB PO ONE ×2 (08:56)
[2023-12-15] MEDS: VITAMIN D 5,000 UNIT CAP PO SCH (08:56)
[2023-12-15] MEDS: CIPROFLOXACIN 400mg IV 400 MG/200 ML BAG IV SCH (08:58)
[2023-12-15] MEDS: IRON 18 MG PO SCH (08:58)
[2023-12-15] MEDS: MONTELUKAST 10 MG TAB PO SCH (08:59)
[2023-12-15] MEDS ORDERED: HOME MED 1 EA UNK (Levothyroxine Sodium [Levothyroxine Sodium] 50 MCG Capsule) PO SCH (09:00)
--- NOTE | 2023-12-15 16:14 | RAD REPORT ---
EXAM DESCRIPTION: RAD - Chest Single View - 12/14/2023 4:24 am CLINICAL HISTORY: CHEST PAIN COMPARISON: 12/11/2023 FINDINGS: Single frontal radiograph view of the chest. Cardiomediastinal silhouette: Normal size and contour. Lungs: Mild perihilar opacities. No pneumothorax or large effusion. Bones: No acute osseous abnormality. Leads overlie the chest. Upper abdomen: No abnormality identified. IMPRESSION: Mild perihilar opacities. These findings could be seen with viral illness or reactive ai rways disease. Electronically signed by: Robert Valdivia DO 12/14/2023 05:16 AM RIDING DOUBLE M Due to temporary technical issues with the PACS/Fluency reporting system, reports are being signed by the in house radiologists without review as a courtesy to insure prompt reporting. The interpreting radiologist is fully responsible for the content of the report.
[2023-12-15] MEDS: FENTANYL 25 MCG/PATCH TD ONE (17:50)
[2023-12-16] MEDS: METOPROLOL TARTRATE 5 MG/5 ML INJ IV ONE ×2 (06:22→06:23)
[2023-12-16 06:36] LABS: Potassium 3.3 mEq/L (3.5-5.1)
[2023-12-16] MEDS: METOPROLOL XL 25 MG TAB PO SCH (07:01)
[2023-12-16 07:50] LABS: Thyroid Stimulating Hormone 1.31 uIU/mL (0.358-3.740)
--- NOTE | 2023-12-16 09:38 | P.PN ---
Subjective Date of Service: 12/16/23 Chief Complaint: Chest pain Subjective: Other (awoke with palpitations, HR 180's,) <Joan Fleming - Last Filed: 12/16/23 12:57> Date of Service: 12/16/23 <Angel Luis Garcia - Last Filed: 12/16/23 15:32> Review of Systems 10-point ROS is otherwise unremarkable General: As per HPI Eyes: Unremarkable ENT: Unremarkable Respiratory: Unremarkable Cardiovascular: Palpitations Gastrointestinal: Unremarkable Genitourinary: Retention Musculoskeletal: Unremarkable Integumentary: Unremarkable Neurological: Unremarkable <Joan Fleming - Last Filed: 12/16/23 12:57> Physical Examination - Vital Signs Temperature: 97.9 F Blood Pressure: 118/75 Pulse: 87 Respirations: 16 Pulse Ox (%): 97 - Physical Exam General: Alert, In no apparent distress, Oriented x3 HEENT: Atraumatic, Normocephalic Neck: 2+ carotid pulse no bruit, JVD not distended Respiratory: Clear to auscultation bilaterally Cardiovascular: Regular rate/rhythm, Other (PSVT, rate 186, appears regular on tele box. Pt has not had BB in days.) Capillary refill: <2 Seconds Gastrointestinal: Normal bowel sounds Musculoskeletal: No clubbing, No swelling Integumentary: No rashes, No breakdown Neurological: Normal speech Lymphatics: No axilla or inguinal lymphadenopathy External genitalia: Deferred Rectal: Deferred <Joan Fleming - Last Filed: 12/16/23 12:57> Assessment And Plan - Current Problems (Diagnosis) (1) Palpitations Onset Date: ~12/16/23 Current Visit: Yes Status: Acute Plan: Metoprolol 5mg IV q 5 min until HR <100. Po metoprolol 12.5mg po. 12 Lead EKG. Post first dose of IV metoprolol, rate 89 bpm. Pt denies palpitations or chest pain. (2) Ureteral stent present Current Visit: No Status: Acute Plan: Bladder scan for post void residual. F/U with urology - Plan Pt appears to have had a run of PSVT secondary to combination of use of steroids and discontinuation of beta ibrahima while inpatient. Will restart Metoprolol. Discharge Plan: Home <Joan Fleming - Last Filed: 12/16/23 12:57> - Plan Pt seen and examined. She had a run of V-tach and nurse resumed metoprolol. Her BP is hypotensive. Will consult Cardiology. Continue home meds for other chronic medical problems. <Angel Luis Garcia - Last Filed: 12/16/23 15:32>
[2023-12-16] MEDS: POTASSIUM CL SA 10 MEQ TAB PO ONE (09:46)
--- NOTE | 2023-12-16 10:39 | RAD REPORT ---
EXAM DESCRIPTION: US - Urinary Bladder - 12/16/2023 10:16 am CLINICAL HISTORY: post void residual, pulled ureteral stent COMPARISON: Abdomen Pelvis W Contrast dated 12/14/2023 TECHNIQUE: Real-time sonographic evaluation of the urinary bladder with pre and postvoid volume jaja urements was performed. FINDINGS: Mild debris within the bladder. No echogenic calculi. No focal bladder wall abnormality. P revoid volume: 135.9 mL. Postvoid volume: 16.5 mL. IMPRESSION: No significant postvoid residual. Mildly debris within the bladder, nonspecific.
--- NOTE | 2023-12-16 13:32 | EKG ---
Test Date: 2023-12-16 Test Time: 09:24:34 Pants Closer: MONICA MEASUREMENT RESULTS: Intervals: Rate: 75 VA: 164 QRSD: 102 QT: 350 QTc: 390 [place]: P: 57 VA: 164 QRS: 72 T: -2 INTERPRETIVE STATEMENTS: Normal sinus rhythm ST & T wave abnormality, consider inferior ischemia ST & T wave abnormality, consider anterior ischemia Abnormal ECG Compared to ECG 12/14/2023 03:48:58 Possible ischemia now present Sinus arrhythmia no longer present ST (T wave) deviation still present Electronically Signed On 12-16-23 13:31:56 FLUTE GRINDER by Gab Rajan
--- NOTE | 2023-12-16 13:39 | EKG ---
Test Date: 2023-12-14 Test Time: 03:48:58 Distribution Collection Operator: RV MEASUREMENT RESULTS: Intervals: Rate: 62 DE: 166 QRSD: 102 QT: 394 QTc: 399 [place]: P: 50 DE: 166 QRS: 70 T: 10 INTERPRETIVE STATEMENTS: Normal sinus rhythm with sinus arrhythmia ST abnormality, possible digitalis effect Abnormal ECG Compared to ECG 12/11/2023 18:11:01 Possible ischemia no longer present ST (T wave) deviation still present Electronically Signed On 12-16-23 13:33:55 BOILERS INSPECTOR by Gab Rajan
[2023-12-16] MEDS: NA CHLORIDE 0.9% 1,000 ML IV ONE (15:16)
[2023-12-17 01:44] VITALS: O2SAT 98
[2023-12-17 06:39] LABS: Absolute Lymphocytes (CBC) 2.4 K/uL (0.7-4.9); Hematocrit 31.1 % (36.0-45.0); Lymphocytes % 35.5 % (15.3-44.8); MCV 98.5 fL (80-100); MPV 7.8 fL (7.6-11.3); Platelets 204 thou/uL (152-406); RBC Red Blood Cell Count 3.16 M/uL (3.86-4.86)
[2023-12-17 07:05] LABS: Albumin 3.1 g/dL (3.4-5.0); Bilirubin Total 0.5 mg/dL (0.2-1.0); Potassium 3.4 mEq/L (3.5-5.1); Protein, Total 6.4 g/dL (6.4-8.2); Troponin High Sensitivity 5.6 pg/mL (<58.9)
[2023-12-17] MEDS: POTASSIUM CL SA 10 MEQ TAB PO ONE (08:58)
--- NOTE | 2023-12-17 09:00 | P.PN ---
Subjective Date of Service: 12/18/23 Chief Complaint: Chest pain Subjective: No new changes <Joan Fleming - Last Filed: 12/18/23 05:25> Date of Service: 12/18/23 <Angel Luis Garcia Gianluca - Last Filed: 12/18/23 16:00> Review of Systems 10-point ROS is otherwise unremarkable ENT: Unremarkable Respiratory: Unremarkable Cardiovascular: Unremarkable Gastrointestinal: As per HPI Genitourinary: Unremarkable Musculoskeletal: Unremarkable Integumentary: Unremarkable Neurological: As per HPI <Joan Fleming - Last Filed: 12/18/23 05:25> Physical Examination - Vital Signs Temperature: 97.5 F Blood Pressure: 115/65 Pulse: 73 Respirations: 16 Pulse Ox (%): 97 - Physical Exam General: Alert, In no apparent distress, Oriented x3 HEENT: Atraumatic, Normocephalic Neck: Supple Respiratory: Clear to auscultation bilaterally, Normal air movement Cardiovascular: No edema, Normal pulses, Regular rate/rhythm Capillary refill: <2 Seconds Gastrointestinal: Normal bowel sounds, Soft and benign Musculoskeletal: No clubbing Integumentary: No rashes Neurological: Normal speech, Other (social service liaison working on home health and functional assist devices for neuromuscular weakness) Lymphatics: No axilla or inguinal lymphadenopathy External genitalia: Deferred Rectal: Deferred <Joan Fleming - Last Filed: 12/18/23 05:25> Assessment And Plan - Current Problems (Diagnosis) (1) Palpitations Onset Date: ~12/16/23 Status: Acute Plan: Metoprolol 5mg IV q 5 min until HR <100. Po metoprolol 12.5mg po. 12 Lead EKG. Post first dose of IV metoprolol, rate 89 bpm. Pt denies palpitations or chest pain. 12/17/23 no palpitations, tele abnormalities, denies chest pain (2) Ureteral stent present Status: Acute Plan: Bladder scan for post void residual. F/U with urology - bladder ultrasound without significant retention, denies hesitancy now 12/17/23 denies pain, voiding well. F/U outpatient urology (3) Muscular deconditioning Status: Acute Plan: career services representative working with patient for outpatient assist devices/programs. - Plan Pt appears to have had a run of PSVT secondary to combination of use of steroids and discontinuation of beta ibrahima while inpatient. Will restart Metoprolol. Discharge Plan: Home <Joan Fleming - Last Filed: 12/18/23 05:25> - Plan Pt seen and examined. I agree with the note by the DROP PIT WORKER. Continue metoprolol for paroxysmal SVT. Consulted Cardiology <Angel Luis Garcia - Last Filed: 12/18/23 16:00>
--- NOTE | 2023-12-17 15:40 | P.DS ---
Admission Date: 12/14/23 Discharge Date: 12/17/23 Disposition: ROUTINE DISCHARGE Discharge Condition: GOOD Reason for Admission: Chest pain Brief History of Present Illness: 52-year-old female with history of depression, A-fib on Eliquis, pseudotumor cerebri, ARY on CPAP presented to the ED with 5 days of left-sided subcostal chest pain that radiated to the left shoulder, associated with shortness of breath and nausea. She was seen in the ED 3 days ago and was discharged on metoprolol, Zofran and aspirin but she states chest pain has remained constant. She also had episodes of intermittent swelling of her hands and legs and admits to paroxysmal nocturnal dyspnea and orthopnea. She is not able to walk for distance due to chest pain. She denies any cough, fever, vomiting, palpitation or diaphoresis. On arrival to the ED her vital signs are within normal limits. Only abnormal lab finding is potassium of 3.1. Chest x-ray was unremarkable. EKG is unchanged from 3 days ago. Hospital Course: Pt is a 33 yo female with past medical history of depression, A-fib on Eliquis, pseudotumor cerebri, and ARY on CPAP who presented with 5 days of left-sided subcostal chest pain that radiated to the left shoulder, associated with shortness of breath and nausea. She was seen in the ED 3 days ago and was discharged on metoprolol, Zofran and aspirin but the chest pain remained constant. She also had episodes of intermittent swelling of her hands and legs and admitted paroxysmal nocturnal dyspnea and orthopnea. On arrival to the ED her vital signs are within normal limits. Lab studies showed low potassium of 3.1. Chest x-ray was unremarkable. EKG was unchanged from 3 days ago before this admission. We admitted pt to rule out ACS. Troponin was negative. Pt started having paroxysmal SVT. We started metoprolol and adjusted it du eto hypotension. Pt was later discharged with metoprolol 12.5mg po BID and she was advised to follow up with the cardiologists for further cardiac work up. CTA abd/pelvis showed mild to moderate right sided hydroureteronephrosis despite the presence of right ureteral stent. Pt was advised to follow up with the Urologist in clinic. We continued home med for other medical problems. Pt was in NAD prior to discharge. Vital Signs/Physical Exam: Temp Pulse Resp BP Pulse Ox 98.1 F 62 20 120/58 L 95 12/17/23 12:00 12/17/23 12:00 12/17/23 15:02 12/17/23 12:00 12/17/23 15:02 Laboratory Data at Discharge: WBC 6.70 thou/uL (4.3-10.9) 12/17/23 06:11 Hgb 10.7 g/dL (12.0-15.0) L 12/17/23 06:11 Hct 31.1 % (36.0-45.0) L 12/17/23 06:11 Plt Count 204 thou/uL (152-406) 12/17/23 06:11 Sodium 137 mEq/L (136-145) 12/17/23 06:38 Potassium 3.4 mEq/L (3.5-5.1) L 12/17/23 06:38 BUN 11 mg/dL (7-18) 12/17/23 06:38 Creatinine 0.71 mg/dL (0.55-1.02) 12/17/23 06:38 Glucose 102 mg/dL (74-106) 12/17/23 06:38 Magnesium 2.2 mg/dL (1.6-2.4) 12/15/23 03:01 Total Bilirubin 0.5 mg/dL (0.2-1.0) 12/17/23 06:38 AST 66 U/L (15-37) H 12/17/23 06:38 ALT 85 U/L (13-56) H 12/17/23 06:38 Alkaline Phosphatase 110 U/L (45-117) 12/17/23 06:38 Home Medications: Albuterol Inhaler [Ventolin Inhaler*] 1 - 2 puff IH Q4HP PRN 10/16/22 Apixaban [Eliquis] 5 mg PO BID 10/16/22 Budesonide/Formoterol Fumarate [Budesonide-Formoterol 160-4.5] 2 puff IH DAILY 10/16/22 Fluoxetine HCl [Prozac] 40 mg PO BEDTIME 10/16/22 Gabapentin 300 mg PO TID 10/16/22 Lamotrigine [Lamictal] 50 mg PO BEDTIME 10/16/22 Levothyroxine Sodium 50 mcg PO DAILY 10/16/22 Montelukast Sodium 10 mg PO DAILY 10/16/22 Pantoprazole [Protonix Tab*] 40 mg PO DAILY 10/16/22 Quetiapine Fumarate [Seroquel] 100 mg PO BEDTIME 10/16/22 acetaZOLAMIDE [Acetazolamide ER] 1,000 mg PO DAILY 10/16/22 Cholecalciferol (Vitamin D3) [D3-5000] 1 tab PO DAILY 11/06/23 Iron 64 mg PO DAILY 11/06/23 methocarbamoL [Robaxin*] 750 mg PO TID PRN 11/06/23 modafiniL [Modafinil] 200 mg PO DAILY 11/06/23 Celecoxib 400 mg PO DAILY 12/14/23 Magnesium Oxide [Mag 0X*] 400 mg PO BEDTIME 12/14/23 Ondansetron HCl 4 mg PO Q8H PRN 12/14/23 Hydrocodone 10/APAP 325 [[place] 10/325*] 1 tab PO Q8HR #30 tab 12/16/23 Hydrocodone 10/APAP 325 [[place] 10/325] 1 tab PO Q8H PRN #30 tab 12/16/23 Metoprolol Tartrate [Lopressor*] 12.5 mg PO BID 30 Days #60 tab 12/17/23 New Medications: Hydrocodone 10/APAP 325 [[place] 10/325*] 1 tab PO Q8HR #30 tab Metoprolol Tartrate [Lopressor*] 12.5 mg PO BID 30 Days #60 tab Hydrocodone 10/APAP 325 [[place] 10/325] 1 tab PO Q8H PRN #30 tab PRN Reason: Pain Physician Discharge Instructions: 33 year-old female patient presented with chest pain. Was noted to have negative cardiac enzymes. EKG normal sinus rhythm rate 70. Condition improved with as needed analgesics. Patient tolerating diet, stable for discharge to home with follow-up appointment with primary care physician, cardiology PROBLEM: Mild to moderate right hydronephrosis Prior ureteral stent placement adbominal pain Acute cystitis with hematuria Atypical chest History of A-fib RVR on Eliquis (NSR on EKG) History of chronic pain IV ciprofloxacin for acute cystitis CTA of the abdomen pelvis IMPRESSION: Mild to moderate right-sided hydroureteronephrosis despite the presence of the right ureteral stent. This could indicate stent dysfunction CT PE protocol negative for PE Follow-up with urology after hospital discharge Follow-up with urology after just Follow-up with cardiology after discharge Resume home cardiac medications Continue home medicines as previously prescribed GOAL: Clear understanding of disease process INSTRUCTIONS: Physician Discharge Instructions: -Follow-up with PCP in 1 to 2 weeks. follow up with Floor Plan Adjuster, Dr. Rajan or Dr. Wong for further cardiac work up. -Please call Dr. Lloyd at [phone] if any questions regarding hospital stay -Please call nursing station at [phone] if any nursing or medication questions -Return to the emergency room if symptoms worsen Diet: AHA Activity: Ad waqar Followup: Gab Rajan MD [ACTIVE - CAN ADMIT] - Unknown,U [ACTIVE - CAN ADMIT] - Juan Pyle [ACTIVE - CAN ADMIT] -
--- NOTE | 2023-12-17 16:21 | P.CNS ---
Date of Consult: 12/17/23 Chief Complaint: Chest pain History of Present Illness: patient with PMH of atrial fibrillation, diagnosed in 2020, has been on eliquis since then, also was diagnosed with autonomic dysfunction and was placed on midodrine before, presented with atypical chest pain, passing out. no other symptoms. Allergies gluten Allergy (Verified 10/16/22 19:34) Nausea/Vomiting Penicillins Allergy (Verified 10/16/22 19:34) Hives/Rash prednisone Allergy (Verified 10/16/22 19:34) RAPID HEART RATE promethazine [From Phenergan] Allergy (Verified 10/16/22 19:34) RESTLESS LEGS Home Medications: Albuterol Inhaler [Ventolin Inhaler*] 1 - 2 puff IH Q4HP PRN 10/16/22 Apixaban [Eliquis] 5 mg PO BID 10/16/22 Budesonide/Formoterol Fumarate [Budesonide-Formoterol 160-4.5] 2 puff IH DAILY 10/16/22 Fluoxetine HCl [Prozac] 40 mg PO BEDTIME 10/16/22 Gabapentin 300 mg PO TID 10/16/22 Lamotrigine [Lamictal] 50 mg PO BEDTIME 10/16/22 Levothyroxine Sodium 50 mcg PO DAILY 10/16/22 Montelukast Sodium 10 mg PO DAILY 10/16/22 Pantoprazole [Protonix Tab*] 40 mg PO DAILY 10/16/22 Quetiapine Fumarate [Seroquel] 100 mg PO BEDTIME 10/16/22 acetaZOLAMIDE [Acetazolamide ER] 1,000 mg PO DAILY 10/16/22 Cholecalciferol (Vitamin D3) [D3-5000] 1 tab PO DAILY 11/06/23 Iron 64 mg PO DAILY 11/06/23 methocarbamoL [Robaxin*] 750 mg PO TID PRN 11/06/23 modafiniL [Modafinil] 200 mg PO DAILY 11/06/23 Celecoxib 400 mg PO DAILY 12/14/23 Magnesium Oxide [Mag 0X*] 400 mg PO BEDTIME 12/14/23 Ondansetron HCl 4 mg PO Q8H PRN 12/14/23 Hydrocodone 10/APAP 325 [[place] 10/325*] 1 tab PO Q8HR #30 tab 02/12/24 Hydrocodone 10/APAP 325 [[place] 10/325] 1 tab PO Q8H PRN #30 tab 12/16/23 Metoprolol Tartrate [Lopressor*] 12.5 mg PO BID 30 Days #60 tab 12/17/23 - Past Medical/Surgical History Diabetic: No -: Hypothyroidism -: Afib -: CVA -: Obesity -: Depression -: Hypercholesterolemia -: pseudotumor cerebri -: TIA -: Lesions on ulnar nerves -: Polyneuropathy -: Chronic pain -: myringotomy -: wisdom teeth extraction -: lithotrypsy -: kidney stent - Family History Father Medical History: Heart disease, Stroke Mother Medical History: Hypertension, Other (see notes) Notes: Depression - Social History Smoking Status: Former smoker Alcohol use: Yes CD- Drugs: No Caffeine use: Yes Place of Residence: Home Review of Systems 10-point ROS is otherwise unremarkable Physical Examination Temp Pulse Resp BP Pulse Ox 98.1 F 62 20 120/58 L 95 12/17/23 12:00 12/17/23 12:00 12/17/23 15:02 12/17/23 12:00 12/17/23 15:02 General: Alert HEENT: Atraumatic Neck: Supple Respiratory: Clear to auscultation bilaterally Cardiovascular: No edema, Normal S1 S2 Gastrointestinal: Normal bowel sounds Musculoskeletal: No clubbing, No swelling - Problems (1) Palpitations Onset Date: ~12/16/23 Current Visit: Yes Status: Acute Plan: patient also complain of atypical chest pain and passing out, she was diagnosed with AF and autonomic dyfunction with tilt table test in 2019. explained to details in patient that she will need event monitor, echo and exercise stress ekg and bring her BP log to clinic, she want to do this with her outpatient gear changer which i agree with. ok to discharge from cardiology standpoint continue Toprol XL and Eliquis.
[2023-12-18 05:40] VITALS: BP 115/65; TEMP 97.5
== END 2023-12-17 16:59 | disposition home health service (06) | DRG 309 ==
LOC: ER 03:15 → ERHOLD 05:57 → 2ND 06:26 → OBSVTOIN 16:07
PROVIDERS: ADMIT Internal Medicine; ATTEND Hospitalist
PROC: 5A09457 Assistance with Respiratory Ventilation, 24-96 Consecutive Hours, Continuous Positive Airway Pressure (ICD-10-PCS; principal; 2023-12-14)
DX: I47.20 Ventricular tachycardia, unspecified (principal); N13.6 Pyonephrosis; Z68.41 Body mass index [BMI] 40.0-44.9, adult; I48.91 Unspecified atrial fibrillation; E66.01 Morbid (severe) obesity due to excess calories; G47.33 Obstructive sleep apnea (adult) (pediatric); F32.A Depression, unspecified; E87.6 Hypokalemia; G93.2 Benign intracranial hypertension; G62.9 Polyneuropathy, unspecified; G89.29 Other chronic pain; E78.00 Pure hypercholesterolemia, unspecified; E03.9 Hypothyroidism, unspecified; I69.393 Ataxia following cerebral infarction; T38.0X5A Adverse effect of glucocorticoids and synthetic analogues, initial encounter; R31.9 Hematuria, unspecified; Z60.2 Problems related to living alone; Z88.0 Allergy status to penicillin; Z88.8 Allergy status to other drugs, medicaments and biological substances; Z79.01 Long term (current) use of anticoagulants; Z99.89 Dependence on other enabling machines and devices; Z79.890 Hormone replacement therapy; Z79.899 Other long term (current) drug therapy; Z87.891 Personal history of nicotine dependence
CPT/HCPCS: 36415; 71045; 71275; 74177; 76857; 80048; 80053; 80307; 81001; 81025; 82533; 83735; 83880; 84132; 84443; 84484; 85025; 93005; 99285; G0378; J0744; J1100; J1650; J2405; J3010; J3535; J7030; Q9967

== ENCOUNTER → 2024-01-10 | Emergency (ER) | payer OTHER ==
[~2024-01-10] MED LIST changes: +LORazepam 2 MG/ML VIAL ONE; -METOPROLOL XL 50 MG TAB PO ONE; -POTASSIUM 25 MEQ EFFERV TAB ONE
--- NOTE | 2024-01-10 14:45 | RAD REPORT ---
EXAM DESCRIPTION: CT - Head Brain Wo Cont - 01/10/2024 2:35 pm CLINICAL HISTORY: HEADACHE COMPARISON: Head Brain Wo Cont dated 04/01/2023 TECHNIQUE: All CT scans are performed using dose optimization technique as appropriate and may inclu de automated exposure control or mA/KV adjustment according to patient size. FINDINGS: No intracranial hemorrhage, hydrocephalus or extra-axial fluid collection.No areas of brai n edema or evidence of midline shift. The paranasal sinuses and mastoids are clear. The calvarium is intact. IMPRESSION: No acute intracranial abnormality.
--- NOTE | 2024-01-10 14:46 | RAD REPORT ---
EXAM DESCRIPTION: RAD - Chest Single View - 01/10/2024 2:38 pm CLINICAL HISTORY: left side chest pain COMPARISON: <Comparisons> FINDINGS: Lines: None. Lungs: No evidence of edema or pneumonia. Pleural: No significant pleural effusions or pneumothorax. Cardiac: The heart size is within normal limits. Mediastinum: Within normal limits. Bones: No acute fractures. Other: None IMPRESSION: No acute cardiopulmonary disease.
[2024-01-10 14:53] LABS: Specific Gravity < 1.005 (1.005-1.030); Urine Bilirubin NEGATIVE (Negative); Urine Blood Negative (Negative); Urine Clarity Turbid (Clear); Urine Color Colorless (Yellow); Urine Glucose NEGATIVE (Negative); Urine Protein NEGATIVE (Negative); Urine RBC None Seen /HPF (None Seen); Urine Urobilinogen Normal (Normal)
[2024-01-10 14:54] LABS: Urine Bacteria <20 /HPF (<20)
[2024-01-10 15:30] LABS: Absolute Basophils 0.1 K/uL (0-0.5); Absolute Lymphocytes (CBC) 2.3 K/uL (0.7-4.9); Basophils % 1.1 % (0-1.3); Hematocrit 33.3 % (36.0-45.0); Lymphocytes % 27.8 % (15.3-44.8); MCV 98.7 fL (80-100); MPV 8.3 fL (7.6-11.3); Platelets 245 thou/uL (152-406); RBC Red Blood Cell Count 3.38 M/uL (3.86-4.86)
[2024-01-10 16:03] LABS: Protime INR 1.07
--- NOTE | 2024-01-10 16:12 | RAD REPORT ---
EXAM DESCRIPTION: MRI - Brain Wo Cont - 01/10/2024 4:05 pm CLINICAL HISTORY: HEADACHE COMPARISON: Head Brain Wo Cont dated 01/10/2024 TECHNIQUE: Sagittal T1-weighted images were obtained along with PD/heavily T2-weighted and T2-FLAIR images. Axial DWI and ADC mapping sequences were also obtained along with coronal heavily T2-weighted images were obtained. FINDINGS: No intracranial hemorrhage, mass or acute infarction. There is no edema or shift of midlin e structures. No extra-axial fluid collections. Signal voids are seen as a normal finding in the kane r intracranial vessels. No significant white matter disease. Mastoid air cells and paranasal sinuses are clear. IMPRESSION: Unremarkable noncontrast brain MRI.
[2024-01-10 16:20] LABS: Albumin 3.5 g/dL (3.4-5.0); Anion Gap 7.7 mEq/L (5.0-15.0); Bilirubin Direct 0.1 mg/dL (0-0.2); Bilirubin Indirect, Calculated 0.3 mg/dL (0.2-0.8); Bilirubin Total 0.4 mg/dL (0.2-1.0); Magnesium 2.1 mg/dL (1.6-2.4); Potassium 3.7 mEq/L (3.5-5.1); Troponin High Sensitivity 3.9 pg/mL (<58.9)
--- NOTE | 2024-01-10 16:55 | EDPHYS ---
Physician Documentation [facility] Name: Erica Tucker Age: 33 yrs Sex: Female : 1990 Arrival Date: 01/10/2024 Time: 13:47 Bed 2 Private MD: ED Physician Dwaine Wren HPI: 01/09 14:30 This 33 yrs old Female presents to ER via Wheelchair with complaints of Memory Loss. cp 14:30 The patient's problem is reported as dysphasia, slow speech, difficulty remembering cp words, headache. 14:30 Onset: The symptoms/episode began/occurred 3 day(s) ago. Duration: The episode is cp continuous. Context:. The patient presents to the emergency department with a speech or higher order brain function problem, a swallowing problem, difficulty. Patient's baseline: Neuro: alert and fully oriented, Motor: no focal deficits, Ambulation: walks with assist only, uses cane, Speech: normal. Historical: - Allergies: 14:06 gluten intolerant; aa5 14:06 Lagevrio (EUA); aa5 14:06 molnupiravir; aa5 14:06 PENICILLINS; aa5 14:06 Phenergan; aa5 14:06 NSAIDS; aa5 - PMHx: 14:06 Ataxia; Atrial fibrillation; Cerebrovascular accident; Chronic pain; depressive aa5 disorder; Hypercholesterolemia; Hypothyroidism; Kidney stone; polyneuropathy; pseudotumor cerebri; TIA; Urinary incontinence; - PSHx: 14:06 Appendectomy; kidney stone surgery; Myringotomy and insertion of tympanic ventilation aa5 tube; [place] teeth extraction; - Immunization history:: Adult Immunizations unknown. - Social history:: Smoking status: Patient denies any tobacco usage or history of. ROS: 14:35 Constitutional: Negative for body aches, chills, fever, poor PO intake, cp 14:35 Eyes: Negative for injury, pain, redness, and discharge, cp 14:35 ENT: Negative for drainage from ear(s), ear pain, sore throat, difficulty swallowing, difficulty handling secretions, 14:35 Cardiovascular: Negative for chest pain, edema, palpitations, 14:35 Respiratory: Negative for cough, shortness of breath, wheezing, 14:35 Abdomen/GI: Negative for abdominal pain, vomiting, diarrhea, constipation, 14:35 : Negative for urinary symptoms, 14:35 Neuro: Positive for headache, speech changes, Negative for altered mental status, dizziness, gait disturbance, weakness, 14:35 All other systems are negative, Exam: 14:40 Constitutional: The patient appears in no acute distress, alert, awake, cp non-diaphoretic, non-toxic, well developed, well nourished, obese, 14:40 Head/Face: Normocephalic, atraumatic. cp 14:40 Eyes: Periorbital structures: appear normal, Pupils: equal, round, and reactive to light and accomodation, Extraocular movements: intact throughout, Conjunctiva: normal, no exudate, no injection, Sclera: no appreciated abnormality, Lids and lashes: appear normal, bilaterally, 14:40 ENT: External ear(s): are unremarkable, Nose: is normal, Mouth: Lips: moist, Oral mucosa: pink and intact, moist, Posterior pharynx: is normal, airway is patent, no erythema, no exudate, 14:40 Neck: ROM/movement: is normal, is supple, without pain, no range of motions limitations, no meningismus, no nuchal rigidity, 14:40 Chest/axilla: Inspection: normal, 14:40 Cardiovascular: Rate: normal, Rhythm: regular, 14:40 Respiratory: the patient does not display signs of respiratory distress, Respirations: normal, no use of accessory muscles, no retractions, labored breathing, is not present, Breath sounds: are clear throughout, no decreased breath sounds, no stridor, no wheezing, 14:40 Abdomen/GI: Inspection: obese Palpation: abdomen is soft and non-tender, in all quadrants, 14:40 Neuro: Orientation: to person, place \T\ time. Mentation: is normal, Cerebellar function: [place] testing is negative, Motor: moves all fours, no focal deficits, Sensation: no obvious gross deficits, 14:50 Radiologist reports: no acute findings cp Vital Signs: 14:04 BP 118 / 92; Pulse 71; Resp 18 S; Temp 97.8(TE); Pulse Ox 97% on R/A; Weight 127.01 kg aa5 (R); Height 5 ft. 7 in. (R); 16:00 BP 118 / 79; Pulse 68; Resp 18; Pulse Ox 99% on R/A; ph 17:23 BP 120 / 86; Pulse 70; Resp 18; Pulse Ox 100% on R/A; mb9 14:04 Body Mass Index 43.85 (127.01 kg, 170.18 cm) aa5 NIH Stroke Scale Scores: 15:26 NIHSS Score: 0 ph MDM: 14:14 Patient medically screened. cp 15:00 Differential diagnosis: CVA, TIA, metabolic disorder, drug effects. 16:53 Data reviewed: vital signs, nurses notes, lab test result(s), EKG, radiologic studies, cp CT scan, MRI. 16:53 I considered the following discharge prescriptions or medication management in the emergency department Medications were administered in the Emergency Department. See MAR. Independent interpretation of the following test(s) in the Emergency Department EKG: See my EKG interpretation above. Counseling: I had a detailed discussion with the patient and/or guardian regarding the historical points, exam findings, and any diagnostic results supporting the discharge/admit diagnosis, lab results, radiology results, the need for outpatient follow up, a neurologist, to return to the emergency department if symptoms worsen or persist or if there are any questions or concerns that arise at home. 01/09 14:26 Order name: Basic Metabolic Panel; Complete Time: 16:21 01/09 16:22 Interpretation: Normal except: CL 115; GFR 85. 01/09 14:26 Order name: CBC with Diff; Complete Time: 16:21 01/09 16:22 Interpretation: Normal except: RBC 3.38; HGB 11.4; HCT 33.3. 01/09 14:26 Order name: LFT's; Complete Time: 16:21 01/09 16:22 Interpretation: Normal except: AST 100; ALT 134; ALK 141; A/G 1.0. 03 14:26 Order name: Magnesium; Complete Time: 16:21 01/09 14:26 Order name: PT-INR; Complete Time: 16:21 01/09 14:26 Order name: Troponin HS; Complete Time: 16:21 01/09 14:26 Order name: Urinalysis W/Microscopic; Complete Time: 16:21 01/09 14:26 Order name: Test, Urine; Complete Time: 16:21 01/09 14:26 Order name: CT Head Brain wo Cont; Complete Time: 14:46 cp 01/09 14:49 Interpretation: Report reviewed. cp 01/09 14:26 Order name: XRAY Chest (1 view); Complete Time: 16:21 cp 01/09 14:51 Order name: MRI - Brain Wo Cont; Complete Time: 16:21 cp 01/09 16:23 Interpretation: Report reviewed. cp 01/09 14:26 Order name: EKG; Complete Time: 14:27 cp 01/09 14:26 Order name: Cardiac monitoring; Complete Time: 17:19 cp 01/09 14:26 Order name: EKG - Nurse/Tech; Complete Time: 17:19 cp 01/09 14:26 Order name: IV Saline Lock; Complete Time: 15:08 cp 01/09 14:26 Order name: Labs collected and sent; Complete Time: 15:08 cp 01/09 14:26 Order name: O2 Per Protocol; Complete Time: 15:08 cp 01/09 14:26 Order name: O2 Sat Monitoring; Complete Time: 15:08 cp 01/09 15:32 Order name: Labs - recollect needed: green top; Complete Time: 15:41 eb Administered Medications: 15:42 Drug: Ativan IVP 1 mg IVP once Route: IVP; Site: left antecubital; ph 16:30 Follow up: Response: No adverse reaction ph Disposition Summary: 01/10/24 16:54 Discharge Ordered Notes: Location: Home cp Problem: new cp Symptoms: have improved cp Condition: Stable cp Diagnosis - Anemia, unspecified cp - Headache cp - Dysphasia cp Followup: cp - With: Private Physician - When: 2 - 3 days - Reason: Recheck today's complaints Discharge Instructions: - Discharge Summary Sheet cp - Anemia cp - General Headache Without Cause cp Forms: - Medication Reconciliation Form cp - Thank You Letter cp - Antibiotic Education cp - Prescription Opioid Use cp - Patient Portal Instructions cp - Leadership Thank You Letter NIH Stroke Scale - NIH Stroke Score Date: 01/10/2024 Time: 15:26 Total Score = 0 10. Dysarthria (speech clarity - read or repeat words) - 0(Normal) 11. Extinction and Inattention (visual/tactile/auditory/spatial/personal) - 0(No abnormality) 1a. Level of Consciousness (LOC) - 0(Alert) 1b. Level of Consciousness (LOC) (Month \T\ Age) - 0(Both) 1c. LOC Commands (Open \T\ Closes Eyes/Client Sales And Service Officer) - 0(Both) 2. Best Gaze (Lateral Gaze Paresis) - 0(Normal) 3. Visual Field Loss - 0(No visual loss) 4. Facial Palsy - 0(Normal) 5a. Left Arm: Motor (10-second hold) - 0(No drift) 5b. Right Arm: Motor (10-second hold) - 0(No drift) 6a. Left Leg: Motor (5-second hold - always test supine) - 0(No drift) 6b. Right Leg: Motor (5-second hold - always test supine) - 0(No drift) 7. Limb Ataxia (finger/nose \T\ heel/agustin - test with eyes open) - 0(Absent) 8. Sensory Loss (pinprick arms/legs/face) - 0(Normal) 9. Best Language: Aphasia (description/naming/reading) - 0(No aphasia) Initials: ph Addendum: 01/11/2024 21:12 I was immediately available on-site in the Emergency Department for ms3 consultation in the care of the patient. Signatures: Dispatcher [employer] Clair Young RN RN aa5 Luna Yadav RN RN ph Tarsha, Ajay, Karissa Anand cp, Marcus, DO DO ms3
--- NOTE | 2024-01-10 16:55 | ER ---
Nurse's Notes [facility] Name: Erica Tucker Age: 33 yrs Sex: Female : 1990 Arrival Date: 01/10/2024 Time: 13:47 Bed 2 Private MD: Diagnosis: Anemia, unspecified;Headache;Dysphasia Presentation: 01/09 13:48 Note To registration to assess pt, pt states "I really have to pee before we do aa5 anything", pt's speech is clear. 14:04 Chief complaint: Patient states: "I am having memory issues, my swallowing issues are aa5 more pronounced". Pt reports symptoms began 3 days ago. 14:04 Method Of Arrival: Wheelchair aa5 14:04 Coronavirus screen: At this time, the client does not indicate any symptoms associated aa5 with coronavirus-19. Ebola Screen: Patient denies travel to an Ebola-affected area in the 21 days before illness onset. Onset of symptoms was January 2024. 14:04 Acuity: NANCY 2 aa5 14:04 Initial Sepsis Screen: Does the patient meet any 2 criteria? No. Patient's initial aa5 sepsis screen is negative. Does the patient have a suspected source of infection? No. Patient's initial sepsis screen is negative. Risk Assessment: Do you want to hurt yourself or someone else? Patient reports no desire to harm self or others. 14:04 No acute neurological deficit is noted. Pre-hospital glucose is not applicable to this aa5 patient. Stroke Activation: Symptom onset > 6 hours Physician: Stroke Attending; Name: ; Notified At: ; Arrived At: Physician: Chief Stroke Resident; Name: ; Notified At: ; Arrived At: Physician: Stroke Resident; Name: ; Notified At: ; Arrived At: Physician: ED Attending; Name: ; Notified At: ; Arrived At: Physician: ED Resident; Name: ; Notified At: ; Arrived At: Historical: - Allergies: 14:06 gluten intolerant; aa5 14:06 Lagevrio (EUA); aa5 14:06 molnupiravir; aa5 14:06 PENICILLINS; aa5 14:06 Phenergan; aa5 14:06 NSAIDS; aa5 - PMHx: 14:06 Ataxia; Atrial fibrillation; Cerebrovascular accident; Chronic pain; depressive aa5 disorder; Hypercholesterolemia; Hypothyroidism; Kidney stone; polyneuropathy; pseudotumor cerebri; TIA; Urinary incontinence; - PSHx: 14:06 Appendectomy; kidney stone surgery; Myringotomy and insertion of tympanic ventilation aa5 tube; [place] teeth extraction; - Immunization history:: Adult Immunizations unknown. - Social history:: Smoking status: Patient denies any tobacco usage or history of. Screenin:00 [facility] ED Fall Risk Assessment (Adult) History of falling in the last 3 months, ph including since admission No falls in past 3 months (0 pts) Confusion or Disorientation No (0 pts) Intoxicated or Sedated No (0 pts) Impaired Gait No (0 pts) Mobility Assist Device Used No (0 pt) Altered Elimination No (0 pt) Score/Fall Risk Level 0 - 2 = Low Risk Oriented to surroundings, Maintained a safe environment, Provided non-skid footwear, Hourly rounding (assess needs \\T\\ fall precautionary measures) done. Abuse screen: Denies threats or abuse. Denies injuries from another. Nutritional screening: No deficits noted. Tuberculosis screening: No symptoms or risk factors identified. Assessment: 15:26 VAN Scoring: Arm Drift: Patients demonstrates NO arm weakness. Patient is VAN Negative. ph General: Appears in no apparent distress. comfortable, obese, well groomed, Behavior is calm, cooperative, Denies fever. 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 Vital Signs: 14:04 BP 118 / 92; Pulse 71; Resp 18 S; Temp 97.8(TE); Pulse Ox 97% on R/A; Weight 127.01 kg aa5 (R); Height 5 ft. 7 in. (R); 16:00 BP 118 / 79; Pulse 68; Resp 18; Pulse Ox 99% on R/A; ph 17:23 BP 120 / 86; Pulse 70; Resp 18; Pulse Ox 100% on R/A; mb9 14:04 Body Mass Index 43.85 (127.01 kg, 170.18 cm) aa5 NIH Stroke Scale Scores: 15:26 NIHSS Score: 0 ph ED Course: 13:47 Arm band placed on. aa5 13:48 Patient arrived in ED. rg4 14:10 Triage completed. aa5 14:14 Ajay Willingham PA is PHCP. cp 14:14 Dwaine Wren DO is Attending Physician. cp 14:22 Luna Yadav, RN is Primary Nurse. ph 14:36 CT Head Brain wo Cont In Process Unspecified. EDMS 14:40 XRAY Chest (1 view) In Process Unspecified. EDMS 15:06 Missed attempt(s): 22 gauge in right forearm. Bleeding controlled, band aid applied, ph catheter tip intact. 16:00 Patient has correct armband on for positive identification. Bed in low position. Call ph light in reach. Side rails up X2. Pulse ox on. NIBP on. 16:04 MRI - Brain Wo Cont In Process Unspecified. EDMS 17:20 No provider procedures requiring assistance completed. ph 17:23 IV discontinued, intact, bleeding controlled, No redness/swelling at site. Pressure mb9 dressing applied. Administered Medications: 15:42 Drug: Ativan IVP 1 mg IVP once Route: IVP; Site: left antecubital; ph 16:30 Follow up: Response: No adverse reaction ph Medication: 17:00 VIS not applicable for this client. ph Outcome: 16:54 Discharge ordered by MD. cp 17:24 Discharged to home ambulatory, ph 17:24 Condition: stable 17:24 Discharge instructions given to patient, Instructed on discharge instructions, follow up and referral plans. Demonstrated understanding of instructions, follow-up care, 17:24 Patient left the ED. ph NIH Stroke Scale - NIH Stroke Score Date: 01/10/2024 Time: 15:26 Total Score = 0 10. Dysarthria (speech clarity - read or repeat words) - 0(Normal) 11. Extinction and Inattention (visual/tactile/auditory/spatial/personal) - 0(No abnormality) 1a. Level of Consciousness (LOC) - 0(Alert) 1b. Level of Consciousness (LOC) (Month \\T\\ Age) - 0(Both) 1c. LOC Commands (Open \\T\\ Closes Eyes/Quartz Cutter) - 0(Both) 2. Best Gaze (Lateral Gaze Paresis) - 0(Normal) 3. Visual Field Loss - 0(No visual loss) 4. Facial Palsy - 0(Normal) 5a. Left Arm: Motor (10-second hold) - 0(No drift) 5b. Right Arm: Motor (10-second hold) - 0(No drift) 6a. Left Leg: Motor (5-second hold - always test supine) - 0(No drift) 6b. Right Leg: Motor (5-second hold - always test supine) - 0(No drift) 7. Limb Ataxia (finger/nose \\T\\ heel/agustin - test with eyes open) - 0(Absent) 8. Sensory Loss (pinprick arms/legs/face) - 0(Normal) 9. Best Language: Aphasia (description/naming/reading) - 0(No aphasia) Initials: ph Signatures: Dispatcher [employer] EDMS Clair Quiles RN RN aa5 Luna Yadav RN RN ph Ajay Willingham PA PA cp Garcia, Rubi rg4 Negar Arthur RN RN mb9 Corrections: (The following items were deleted from the chart) 14:12 14:04 BP 118 / 92; Pulse 71bpm; Resp 18bpm; Spontaneous; Pulse Ox 97% RA; Temp aa5 97.8F Temporal; aa5
[2024-01-10 17:32] VITALS: TEMP 97.8
[2024-01-10 17:33] VITALS: BP 120/86; O2SAT 100
== END ==
LOC: ER 13:47
DX: R47.02 Dysphasia (principal); D64.9 Anemia, unspecified; R51.9 Headache, unspecified; Z86.73 Personal history of transient ischemic attack (TIA), and cerebral infarction without residual deficits; Z88.0 Allergy status to penicillin; Z88.6 Allergy status to analgesic agent; Z88.8 Allergy status to other drugs, medicaments and biological substances; Z91.018 Allergy to other foods
CPT/HCPCS: 36415; 70450; 70551; 71045; 80048; 80076; 81001; 81025; 83735; 84484; 85025; 85610; 96374; 99284

== ENCOUNTER 2024-02-01 13:20 | Emergency (ER) | payer OTHER ==
[2024-02-01 14:06] LABS: Absolute Eosinophils 0.2 K/uL (0-0.5); Absolute Lymphocytes (CBC) 2.4 K/uL (0.7-4.9); Absolute Monocytes 0.4 K/uL (0.1-1.3); Absolute Neutrophil 5.9 K/uL (1.8-8.0); Basophils % 0.5 % (0-1.3); Eosinophils % 1.8 % (0-4.4); Hematocrit 32.8 % (36.0-45.0); Lymphocytes % 26.8 % (15.3-44.8); MCH 32.9 pg (27.0-35.0); MCHC 33.5 g/dL (32.0-36.0); MCV 98.4 fL (80-100); MPV 8.1 fL (7.6-11.3); Monocytes % 4.9 % (3.3-12.3); Platelets 235 thou/uL (152-406); RBC Red Blood Cell Count 3.33 M/uL (3.86-4.86); Red Cell Distribution Width 14.6 % (12.1-15.2)
[2024-02-01 14:26] LABS: Anion Gap 7.4 mEq/L (5.0-15.0); Magnesium 1.9 mg/dL (1.6-2.4); Potassium 3.4 mEq/L (3.5-5.1); Troponin High Sensitivity 3.7 pg/mL (<58.9)
--- NOTE | 2024-02-01 15:56 | RAD REPORT ---
EXAM DESCRIPTION: CT - Chest For Pe Angio - 02/01/2024 3:40 pm CLINICAL HISTORY: Chest pain COMPARISON: December 2023 and 2021 TECHNIQUE: Dynamically enhanced axial 3 mm thick images of the chest were obtained during administra tion of 100 mL Isovue 370 IV contrast. Coronal and oblique reconstruction images were generated and r eviewed. Exam utilizes a protocol for optimal evaluation of pulmonary arterial tree. Maximum intensity projections 3D imaging was utilized All CT scans are performed using dose optimization technique as appropriate and may include automated exposure control or mA/KV adjustment according to patient size. FINDINGS: A pulmonary embolus is not seen. A thoracic aortic aneurysm is not noted. Small pleural effusions. A pericardial effusion is not seen. A lung consolidation is not present. Old right rib fractures Stable mild soft tissue region of the thymus. This may represent normal tissue IMPRESSION: Negative for a pulmonary embolism.
--- NOTE | 2024-02-01 15:58 | RAD REPORT ---
EXAM DESCRIPTION: [place] Single View02/01/2024 3:02 pm CLINICAL HISTORY: Chest pain COMPARISON: January 10, 2024 FINDINGS: Lungs appear clear The heart is normal size IMPRESSION: No acute abnormality displayed
--- NOTE | 2024-02-01 16:46 | EDPHYS ---
Physician Documentation [facility] Name: Erica Tucker Age: 33 yrs Sex: Female : 1990 Arrival Date: 02/01/2024 Time: 13:20 Bed DX2 Private MD: ED Physician Dwaine Wren HPI: 01/31 14:31 This 33 yrs old Female presents to ER via Ambulatory with complaints of Chest Pain, ms3 Shortness Of Breath. 14:34 33-year-old female with past medical history of ataxia, atrial fibrillation, CVA, ms3 chronic pain, depression, hypertension presents to the emergency department for shortness of breath and chest pain that is been ongoing for 3 to 4 days. Patient states she has used her albuterol without relief. Patient states her chest pain is substernal and rated 3-4/10. Patient denies nausea or vomiting.. Historical: - Allergies: 13:32 gluten intolerant; ll1 13:32 Lagevrio (EUA); ll1 13:32 molnupiravir; ll1 13:32 PENICILLINS; ll1 13:32 Phenergan; ll1 13:32 NSAIDS; ll1 13:32 Prednisone; ll1 - PMHx: 13:32 Ataxia; Atrial fibrillation; Cerebrovascular accident; Chronic pain; depressive ll1 disorder; Hypercholesterolemia; Hypothyroidism; Kidney stone; polyneuropathy; pseudotumor cerebri; TIA; Urinary incontinence; - PSHx: 13:32 Appendectomy; kidney stone surgery; Myringotomy and insertion of tympanic ventilation ll1 tube; [place] teeth extraction; - Immunization history:: Adult Immunizations up to date. - Social history:: Smoking status: Patient denies any tobacco usage or history of. ROS: 14:34 Constitutional: Negative for fever, and chills. Abdomen/GI: Negative for abdominal ms3 pain, nausea, vomiting, diarrhea, and constipation, 14:34 Cardiovascular: Positive for chest pain, 14:34 Respiratory: Positive for shortness of breath, Exam: 14:34 Constitutional: This is a well developed, well nourished patient who is awake, alert, ms3 and in no acute distress. Head/Face: Normocephalic, atraumatic. Chest/axilla: Normal chest wall appearance and motion. Nontender with no deformity. Cardiovascular: Regular rate and rhythm with a normal S1 and S2. No gallops, murmurs, or rubs. Normal PMI, no JVD. No pulse deficits. Respiratory: Lungs have equal breath sounds bilaterally, clear to auscultation and percussion. No rales, rhonchi or wheezes noted. No increased work of breathing, no retractions or nasal flaring. Abdomen/GI: Soft, non-tender, with normal bowel sounds. No distension or tympany. No guarding or rebound. No evidence of tenderness throughout. Skin: Warm, dry with normal turgor. Normal color with no rashes, no lesions, and no evidence of cellulitis. MS/ Extremity: Pulses equal, no cyanosis. Neurovascular intact. Full, normal range of motion. 14:34 ECG was reviewed by the Attending Physician. Vital Signs: 13:37 BP 105 / 52; Pulse 73; Resp 18; Temp 98.7; Pulse Ox 99% on R/A; Pain 5/10; ll1 15:00 BP 106 / 72; Pulse 87; Resp 16 S; Pulse Ox 99% on R/A; as6 17:00 BP 108 / 71; Pulse 64; Resp 18 S; Pulse Ox 100% on R/A; as6 13:37 Pain Scale: Adult ll1 MDM: 13:49 Patient medically screened. 01/31 13:36 Order name: Basic Metabolic Panel; Complete Time: 14:31 01/31 13:36 Order name: CBC with Diff; Complete Time: 14:31 01/31 13:36 Order name: D-Dimer; Complete Time: 14:31 01/31 13:36 Order name: Magnesium; Complete Time: 14:31 01/31 13:36 Order name: Troponin HS; Complete Time: 14:31 01/31 13:36 Order name: XRAY Chest (1 view); Complete Time: 16:05 01/31 14:31 Order name: CT Chest For PE Angio; Complete Time: 16:05 01/31 13:36 Order name: Cardiac monitoring; Complete Time: 17:53 01/31 13:36 Order name: EKG - Nurse/Tech; Complete Time: 13:59 01/31 13:36 Order name: IV Saline Lock; Complete Time: 13:59 01/31 13:36 Order name: Labs collected and sent; Complete Time: 13:59 ms3 01/31 13:36 Order name: O2 Per Protocol; Complete Time: 17:53 ms3 01/31 13:36 Order name: O2 Sat Monitoring; Complete Time: 17:53 ms3 EC:34 Rate is 65 beats/min. Rhythm is regular. QRS [place] is Normal. NE interval is normal. QRS ms3 interval is normal. Clinical impression: NSR w/ Non-specific ST/T Changes. Interpreted by me. Reviewed by me. Administered Medications: No medications were administered Disposition Summary: 02/01/24 16:45 Discharge Ordered Notes: Location: Home ms3 Condition: Stable ms3 Diagnosis - Chest pain, unspecified ms3 - Shortness of breath ms3 Followup: ms3 - With: Gab Rajan MD - When: 2 - 3 days - Reason: Recheck today's complaints Discharge Instructions: - Discharge Summary Sheet ms3 - Nonspecific Chest Pain, Adult ms3 - Shortness of Breath, Adult ms3 Forms: - Medication Reconciliation Form ms3 - Thank You Letter ms3 - Antibiotic Education ms3 - Prescription Opioid Use ms3 - Patient Portal Instructions ms3 - Leadership Thank You Letter ms3 Signatures: Dispatcher [employer] EDMS Umberto Armendariz, RN RN ll1 Dwaine Wren DO DO ms3 Corrections: (The following items were deleted from the chart) 13:36 13:36 Chest Single View+[email or web address] ordered. EDMS EDMS
--- NOTE | 2024-02-01 16:46 | ER ---
Nurse's Notes [facility] Name: Erica Tucker Age: 33 yrs Sex: Female : 1990 Arrival Date: 02/01/2024 Time: 13:20 Bed DX2 Private MD: Diagnosis: Chest pain, unspecified;Shortness of breath Presentation: 01/31 13:37 Chief complaint: Patient states: CP and SOB for 3-4 days. Went to PCP first, sent here ll1 for further evaluation. Coronavirus screen: Client denies travel out of the [place] in the last 14 days. difficulty breathing, shortness of breath. Ebola Screen: Patient denies travel to an Ebola-affected area in the 21 days before illness onset. Initial Sepsis Screen: Does the patient meet any 2 criteria? No. Patient's initial sepsis screen is negative. Does the patient have a suspected source of infection? No. Patient's initial sepsis screen is negative. Risk Assessment: Do you want to hurt yourself or someone else? Patient reports no desire to harm self or others. Onset of symptoms was January 27, 2024. 13:37 Method Of Arrival: Ambulatory 1 13:37 Acuity: NANCY 3 ll1 Triage Assessment: 13:39 General: Appears in no apparent distress. Behavior is calm, cooperative, appropriate ll1 for age. Pain: Complains of pain in chest Pain currently is 5 out of 10 on a pain scale. Quality of pain is described as aching. Neuro: Reports a syncopal episode "passed out" on Saturday. Cardiovascular: Reports chest pain, shortness of breath. Respiratory: Reports shortness of breath. Historical: - Allergies: 13:32 gluten intolerant; ll1 13:32 Lagevrio (EUA); ll1 13:32 molnupiravir; ll1 13:32 PENICILLINS; ll1 13:32 Phenergan; ll1 13:32 NSAIDS; ll1 13:32 Prednisone; ll1 - PMHx: 13:32 Ataxia; Atrial fibrillation; Cerebrovascular accident; Chronic pain; depressive ll1 disorder; Hypercholesterolemia; Hypothyroidism; Kidney stone; polyneuropathy; pseudotumor cerebri; TIA; Urinary incontinence; - PSHx: 13:32 Appendectomy; kidney stone surgery; Myringotomy and insertion of tympanic ventilation ll1 tube; [place] teeth extraction; - Immunization history:: Adult Immunizations up to date. - Social history:: Smoking status: Patient denies any tobacco usage or history of. Screenin:00 [facility] ED Fall Risk Assessment (Adult) History of falling in the last 3 months, as6 including since admission No falls in past 3 months (0 pts) Confusion or Disorientation No (0 pts) Intoxicated or Sedated No (0 pts) Impaired Gait Yes (1 pt) Mobility Assist Device Used Yes (1 pt) Altered Elimination No (0 pt) Score/Fall Risk Level 0 - 2 = Low Risk Oriented to surroundings, Maintained a safe environment, Educated pt \\T\\ family on fall prevention, incl call for assistance when getting out of bed, Assessed \\T\\ reinforced patient's understanding of fall precautions, Hourly rounding (assess needs \\T\\ fall precautionary measures) done. Abuse screen: Denies threats or abuse. Denies injuries from another. Nutritional screening: No deficits noted. Tuberculosis screening: No symptoms or risk factors identified. Vital Signs: 13:37 BP 105 / 52; Pulse 73; Resp 18; Temp 98.7; Pulse Ox 99% on R/A; Pain 5/10; ll1 15:00 BP 106 / 72; Pulse 87; Resp 16 S; Pulse Ox 99% on R/A; as6 17:00 BP 108 / 71; Pulse 64; Resp 18 S; Pulse Ox 100% on R/A; as6 13:37 Pain Scale: Adult ll1 ED Course: 13:24 Patient arrived in ED. im 13:26 Dwaine Wren DO is Attending Physician. ms3 13:33 Arm band placed on. ll1 13:38 Triage completed. ll1 13:59 Initial lab(s) drawn, by in, sent to lab. Inserted saline lock: 20 gauge in right as6 antecubital area, using aseptic technique. Blood collected. 15:04 XRAY Chest (1 view) In Process Unspecified. EDMS 15:42 CT Chest For PE Angio In Process Unspecified. EDMS 16:45 Gab Rajan MD is Referral Physician. ms3 17:00 Patient has correct armband on for positive identification. Call light in reach. as6 Provided Education on: follow up. 17:00 No provider procedures requiring assistance completed. IV discontinued, intact, as6 bleeding controlled, No redness/swelling at site. Pressure dressing applied. Administered Medications: No medications were administered Medication: 17:00 VIS not applicable for this client. as6 Outcome: 16:45 Discharge ordered by . ms3 17:00 Discharged to home ambulatory, as6 17:00 Condition: stable 17:00 Discharge instructions given to patient, Instructed on discharge instructions, follow up and referral plans. Demonstrated understanding of instructions, follow-up care, 17:17 Patient left the ED. as6 17:21 Patient left the ED. bc6 Signatures: Dispatcher [employer] EDMS Umberto Armendariz, RN RN ll1 Dwaine Wren DO DO ms3 Armando Baer, FANTASMA RN as6 Hilary Wiggins bc6 Emma Wheeler
[2024-02-01 18:32] VITALS: BP 105/52; TEMP 98.7; O2SAT 99
--- NOTE | 2024-02-03 13:45 | EKG ---
Test Date: 2024-02-01 Test Time: 12:50:57 Cold Working Supervisor: MEASUREMENT RESULTS: Intervals: Rate: 65 [place]: 156 QRSD: 96 QT: 390 QTc: 405 [place]: P: 54 [place]: 156 QRS: 62 T: 22 INTERPRETIVE STATEMENTS: Sinus rhythm with marked sinus arrhythmia Nonspecific T wave abnormality Abnormal ECG Compared to ECG 12/31/2023 00:12:03 Possible ischemia no longer present T-wave abnormality still present Electronically Signed On 02-03-24 13:37:47 CDT by Gab Rajan
== END 2024-02-01 17:21 | disposition home or self-care (01) ==
LOC: ER 13:20
DX: R07.9 Chest pain, unspecified (principal); R06.02 Shortness of breath; I48.91 Unspecified atrial fibrillation; Z86.73 Personal history of transient ischemic attack (TIA), and cerebral infarction without residual deficits; Z88.0 Allergy status to penicillin; Z88.6 Allergy status to analgesic agent; Z88.8 Allergy status to other drugs, medicaments and biological substances; Z91.018 Allergy to other foods
CPT/HCPCS: 93005; 85025; 80048; 36415; 83735; 85379; 84484; 71275; 71045; 99284; Q9967

== ENCOUNTER 2024-02-03 15:38 | Emergency (ER) | payer OTHER ==
[2024-02-03 17:00] LABS: Absolute Eosinophils 0.1 K/uL (0-0.5); Absolute Lymphocytes (CBC) 2.3 K/uL (0.7-4.9); Absolute Monocytes 0.6 K/uL (0.1-1.3); Basophils % 0.3 % (0-1.3); Eosinophils % 1.3 % (0-4.4); Hematocrit 31.2 % (36.0-45.0); Hemoglobin 10.9 g/dL (12.0-15.0); Lymphocytes % 25.8 % (15.3-44.8); MCH 34.1 pg (27.0-35.0); MCV 97.4 fL (80-100); Monocytes % 6.3 % (3.3-12.3); Neutrophils % 66.3 % (41.7-73.7); Nucleated Red Blood Cells % 0.1 % (0-0); Platelets 226 thou/uL (152-406); RBC Red Blood Cell Count 3.21 M/uL (3.86-4.86); Red Cell Distribution Width 14.3 % (12.1-15.2)
[2024-02-03 17:23] LABS: Anion Gap 8.5 mEq/L (5.0-15.0); Potassium 3.5 mEq/L (3.5-5.1); Troponin High Sensitivity 3.6 pg/mL (<58.9)
[2024-02-03] MEDS ORDERED: DIPHENHYDRAMINE 50 MG/ML VIAL ONE (18:03)
[2024-02-03] MEDS ORDERED: NA CHLORIDE 0.9% 1,000 ML ONE (18:04)
--- NOTE | 2024-02-03 18:40 | RAD REPORT ---
EXAM DESCRIPTION: CT - Head Brain Wo Cont - 02/03/2024 6:19 pm CLINICAL HISTORY: Headache COMPARISON: January 10, 2024 MRI TECHNIQUE: Computed axial tomography of the head was obtained. IV contrast was not requested. All CT scans are performed using dose optimization technique as appropriate and may include automated exposure control or mA/KV adjustment according to patient size. FINDINGS: An intracranial bleed is not seen Ventricles are small but unchanged in caliber No significant hypodense areas within the brain visualized No extra-axial fluid collection is noted. Fluid within the sinuses/ mastoids is not seen IMPRESSION: No acute intracranial abnormality is seen
--- NOTE | 2024-02-03 19:23 | RAD REPORT ---
EXAM DESCRIPTION: [place] Single View4 7:04 pm CLINICAL HISTORY: sob COMPARISON: February 01, 2024 FINDINGS: The lungs appear clear of acute infiltrate. The heart is normal size IMPRESSION: No acute abnormalities displayed
--- NOTE | 2024-02-03 19:26 | ER ---
Nurse's Notes [facility] Name: Erica Tucker Age: 33 yrs Sex: Female : 1990 Arrival Date: 02/03/2024 Time: 15:38 Bed 16 Private MD: Surinder Tirado Diagnosis: Headache;Dyspnea, unspecified Presentation: 02/02 15:46 Chief complaint: Patient states: SOB that has not improved since being seen in ED ph Saturday, states, " I feel like the muscles I use to breathe aren't working, and I feel like I'm over sedated or something, like I can't stay awake." Also c/o headache in base of skull. Coronavirus screen: Vaccine status: Patient reports receiving the 1st dose of the Covid vaccine. Ebola Screen: No symptoms or risks identified at this time. Initial Sepsis Screen: Does the patient meet any 2 criteria? No. Patient's initial sepsis screen is negative. Does the patient have a suspected source of infection? No. Patient's initial sepsis screen is negative. Risk Assessment: Do you want to hurt yourself or someone else? Patient reports no desire to harm self or others. Onset of symptoms was February 03, 2024. 15:46 Method Of Arrival: Ambulatory ph 15:46 Acuity: NANCY 3 ph Triage Assessment: 15:52 Headache History: The patient has had previous headaches. General: Appears in no ph apparent distress. Behavior is calm, cooperative. Pain: Complains of pain in occipital area and base of the skull. Neuro: Level of Consciousness is awake, alert, obeys commands, Oriented to person, place, time, situation. 19:00 Pain: Also complains of no other associated symptoms. 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 - Infectious Disease History:: Denies. - Social history:: Smoking status: Patient denies any tobacco usage or history of. Screenin:50 [facility] ED Fall Risk Assessment (Adult) History of falling in the last 3 months, rs5 including since admission No falls in past 3 months (0 pts) Confusion or Disorientation No (0 pts) Intoxicated or Sedated No (0 pts) Impaired Gait No (0 pts) Mobility Assist Device Used No (0 pt) Altered Elimination No (0 pt) Score/Fall Risk Level 0 - 2 = Low Risk Oriented to surroundings, Maintained a safe environment. Abuse screen: Denies threats or abuse. Nutritional screening: No deficits noted. Tuberculosis screening: No symptoms or risk factors identified. Assessment: 15:50 General: Appears in no apparent distress. uncomfortable, Behavior is cooperative, rs5 anxious. Pain: Complains of pain in head Pain currently is 3 out of 10 on a pain scale. Quality of pain is described as aching, Is continuous. Neuro: Level of Consciousness is awake, alert, obeys commands, Oriented to person, place, time, situation. Cardiovascular: Patient's skin is warm and dry. Rhythm is regular. Respiratory: Reports shortness of breath at rest Airway is patent Respiratory effort is even, unlabored, Respiratory pattern is regular, symmetrical. GI: No signs and/or symptoms were reported involving the gastrointestinal system. : No signs and/or symptoms were reported regarding the genitourinary system. EENT: No signs and/or symptoms were reported regarding the EENT system. Derm: Skin is pink, warm \\T\\ dry. Musculoskeletal: Range of motion: intact in all extremities. 17:02 Reassessment: Patient and/or family updated on plan of care and expected duration. Pain rs5 level reassessed. Patient is alert, oriented x 3, equal unlabored respirations, skin warm/dry/pink. 18:05 Reassessment: No changes from previously documented assessment. rs5 19:00 Reassessment:. General: Appears in no apparent distress. comfortable, well groomed, pf1 well developed, Behavior is calm, cooperative, appropriate for age, quiet. 19:00 Pain: Complains of pain in scalp and base of the skull and occipital area Pain pf1 currently is 8 out of 10 on a pain scale. Neuro: No deficits noted. Level of Consciousness is awake, alert, obeys commands, Oriented to person, place, time, situation. Cardiovascular: Capillary refill < 3 seconds Patient's skin is warm and dry. Respiratory: No deficits noted. Airway is patent Respiratory effort is even, unlabored, Respiratory pattern is regular, symmetrical, Breath sounds are clear bilaterally. GI: No deficits noted. No signs and/or symptoms were reported involving the gastrointestinal system. : No deficits noted. No signs and/or symptoms were reported regarding the genitourinary system. EENT: No deficits noted. No signs and/or symptoms were reported regarding the EENT system. Derm: No deficits noted. No signs and/or symptoms reported regarding the dermatologic system. Musculoskeletal: No deficits noted. Circulation, motion, and sensation intact. Capillary refill < 3 seconds, Range of motion: intact in all extremities. 19:01 Reassessment: No changes from previously documented assessment. rs5 19:39 Reassessment: MAREN Lopez at speaking with patient. pf1 Vital Signs: 15:46 Pulse 68; Resp 20; Temp 98.6; Pulse Ox 98% on R/A; Weight 127.01 kg; Height 5 ft. 7 in. ph ; 15:49 BP 103 / 64; ph 19:15 BP 114 / 72; Pulse 89; Resp 16; Temp 97.9; Pulse Ox 100% on R/A; Pain 8/10; pf1 15:46 Body Mass Index 43.85 (127.01 kg, 170.18 cm) ph 19:15 Pain Scale: Adult pf1 ED Course: 15:40 Patient arrived in ED. mr 15:40 Surinder Tirado is Private Physician. mr 15:48 Triage completed. ph 15:49 Arm band placed on. ph 15:50 Patient placed in waiting room, Patient notified of wait time. ph 15:50 Patient has correct armband on for positive identification. Placed in gown. Bed in low rs5 position. Call light in reach. Side rails up X2. 15:50 No provider procedures requiring assistance completed. rs5 16:06 Vega Monterroso MD is Attending Physician. ec2 16:51 Basic Metabolic Panel Sent. bc6 16:51 CBC with Diff Sent. bc6 16:51 NT PRO-BNP Sent. bc6 16:51 Troponin HS Sent. bc6 16:51 Initial lab(s) drawn, by me, sent to lab. Missed attempt(s): 22 gauge in right bc6 antecubital area. 17:02 EKG done, by ED staff, reviewed by Vega Monterroso MD. bc6 17:34 Patient placed in an exam room, on a stretcher. ll1 17:50 Jessica Amado [facility]C [facility]. ec2 17:57 Bowen Baker, RN is Primary Nurse. rs5 18:21 CT Head Brain wo Cont In Process Unspecified. EDMS 19:05 Chest Single View XRAY In Process Unspecified. EDMS 19:55 IV discontinued, intact, bleeding controlled, No redness/swelling at site. Pressure pf1 dressing applied. 19:56 Provided Education on: follow up. pf1 Administered Medications: 17:45 CANCELLED (Physician Discretion): [id number] mg IVP once; over 1 to 2 minutes ec2 18:01 Drug: NS 0.9% IV 1000 ml IV at 1 bolus Per protocol; 1000 mL bolus Route: IV; Rate: 1 rs5 bolus; Site: left antecubital; 18:15 Follow up: Response: No adverse reaction rs5 18:59 Not Given (Patient Refused): ftoiyhegjpfdvpo75 mg IVP once rs5 18:59 Not Given (Patient Refused): droperidol2.5 mg IVP once rs5 Medication: 19:57 VIS not applicable for this client. pf1 Outcome: 19:25 Discharge ordered by . kb 19:55 Discharged to home ambulatory, pf1 19:55 Condition: improved 19:55 Discharge instructions given to patient, Instructed on discharge instructions, follow up and referral plans. Demonstrated understanding of instructions, follow-up care, 19:58 Patient left the ED. pf1 Signatures: Dispatcher [employer] EDIL Jessica Amado FNP-C FNP-Ckb Rivera, Mary, Reg Reg mr YadavLuna, RN Umberto Higginbotham ph, RN RN ll1 Tasha Mims RN RN pf1 Bowen Baker, FANTASMA MEEK rs5 Hilary Wiggins [facility] Vega Monterroso MD MD ec2 Corrections: (The following items were deleted from the chart) 15:52 15:46 Chief complaint: Patient states: SOB that has not improved since being seen in ED ph Saturday, states, " I feel like the muscles I use to breath aren't working, and I feel like I'm over sedated or something, like I can't stay awake." Also c/o headache in base of skull ph
--- NOTE | 2024-02-03 19:26 | EDPHYS ---
Physician Documentation [facility] Name: Erica Tucker Age: 33 yrs Sex: Female : 1990 Arrival Date: 02/03/2024 Time: 15:38 Bed 16 Private MD: Surinder Tirado ED Physician Vega Monterroso HPI: 02/02 16:59 This 33 yrs old Female presents to ER via Ambulatory with complaints of ec2 Headache, Shortness Of Breath. 16:59 Patient arrives today for headache and shortness of breath. Patient with history of ec2 significant medical problems including atrial fibrillation, CVA arrives today for evaluation of headache and shortness of breath. Reports persistent symptoms ongoing for at least a week. Patient reports no cough or cold symptoms, no fevers or chills, no nausea or vomiting. Also complains of a headache, at the back of the head. Patient reports no recent injuries or trauma.. 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, unknown pf1 Historical: - Allergies: 15:48 gluten intolerant; ph 15:48 Lagevrio (EUA); ph 15:48 molnupiravir; ph 15:48 PENICILLINS; ph 15:48 NSAIDS; ph 15:48 Phenergan; ph 15:48 Prednisone; ph - PMHx: 15:48 Ataxia; Atrial fibrillation; Cerebrovascular accident; Chronic pain; depressive ph disorder; Hypercholesterolemia; Hypothyroidism; Kidney stone; polyneuropathy; pseudotumor cerebri; TIA; Urinary incontinence; - PSHx: 15:48 Appendectomy; kidney stone surgery; Myringotomy and insertion of tympanic ventilation ph tube; [place] teeth extraction; - Immunization history:: Adult Immunizations unknown. - Infectious Disease History:: Denies. - Social history:: Smoking status: Patient denies any tobacco usage or history of. ROS: 16:59 Constitutional: as per hpi ec2 Exam: 16:59 Constitutional: GEN: NAD Head: atraumatic Eyes: EOMI Ears: External ears are ec2 normal. CV: regular rate LUNGS: no respiratory distress ABD: non-distended SKIN: no evidence of rashes MSK: no evidence of trauma NEURO: moves all extremities equally Vital Signs: 15:46 Pulse 68; Resp 20; Temp 98.6; Pulse Ox 98% on R/A; Weight 127.01 kg; Height 5 ft. 7 in. ph ; 15:49 BP 103 / 64; ph 19:15 BP 114 / 72; Pulse 89; Resp 16; Temp 97.9; Pulse Ox 100% on R/A; Pain 8/10; pf1 15:46 Body Mass Index 43.85 (127.01 kg, 170.18 cm) ph 19:15 Pain Scale: Adult pf1 MDM: 16:23 Patient medically screened. ec2 16:59 Data reviewed: vital signs. ED course: Patient arrives today for evaluation of ec2 shortness of breath and headache. Examination remarkable for well-appearing nontoxic dividual's otherwise in no acute distress with a reassuring examination. Obtain mono, CT imaging, chest x-ray as well as lab work. Will treat the patient's headache as well.. 17:01 ED course: EKG independently reviewed and interpreted by me, shows normal sinus rhythm, ec2 rate of 70, no acute ST segment ovation, intervals nonconcerning . 17:29 ED course: Metabolic profile is reassuring, CBC shows slight anemia, BNP minimally ec2 elevated at 138, troponin within normal ranges. Pending CT imaging. . 17:49 Transition of care: After a detail discussion of the patient's case, care is ec2 transferred to Jessica NIETO. ED course: Patient signed out pending chest x-ray as well as CT scan of the head and reassessment after medications.. 19:25 Counseling: I had a detailed discussion with the patient and/or guardian regarding the kb historical points, exam findings, and any diagnostic results supporting the discharge/admit diagnosis, lab results, radiology results, the need for outpatient follow up, a family practitioner, to return to the emergency department if symptoms worsen or persist or if there are any questions or concerns that arise at home. 02/02 16:23 Order name: Basic Metabolic Panel; Complete Time: 17:29 ec2 02/02 16:23 Order name: CBC with Diff; Complete Time: 17:29 ec2 02/02 16:23 Order name: NT PRO-BNP; Complete Time: 17:29 ec2 02/02 16:23 Order name: Troponin HS; Complete Time: 17:29 ec2 02/02 17:28 Order name: CT Head Brain wo Cont; Complete Time: 18:42 ec2 02/02 18:44 Order name: Chest Single View XRAY; Complete Time: 19:25 kb 02/02 16:23 Order name: Cardiac monitoring; Complete Time: 19:00 ec2 02/02 16:23 Order name: EKG - Nurse/Tech; Complete Time: 17:02 ec2 02/02 16:23 Order name: IV Saline Lock; Complete Time: 19:00 ec2 02/02 16:23 Order name: Labs collected and sent; Complete Time: 16:51 ec2 02/02 16:23 Order name: O2 Per Protocol; Complete Time: 17:01 ec2 02/02 16:23 Order name: O2 Sat Monitoring; Complete Time: 17:01 ec2 Administered Medications: 17:45 CANCELLED (Physician Discretion): krsxgnehwokmcp61 mg IVP once; over 1 to 2 minutes ec2 18:01 Drug: NS 0.9% IV 1000 ml IV at 1 bolus Per protocol; 1000 mL bolus Route: IV; Rate: 1 rs5 bolus; Site: left antecubital; 18:15 Follow up: Response: No adverse reaction rs5 18:59 Not Given (Patient Refused): rtraupdtnnfocru81 mg IVP once rs5 18:59 Not Given (Patient Refused): droperidol2.5 mg IVP once rs5 Disposition: 02/03 11:13 I agree with the assessment and plan of care. ec2 Disposition Summary: 02/03/24 19:25 Discharge Ordered Notes: Location: Home kb Condition: Stable kb Diagnosis - Headache kb - Dyspnea, unspecified kb Followup: ec2 - With: Private Physician - When: - Reason: Re-evaluation by your physician Discharge Instructions: - Discharge Summary Sheet ec2 - General Headache Without Cause ec2 Forms: - Medication Reconciliation Form kb - Thank You Letter kb - Antibiotic Education kb - Prescription Opioid Use kb - Patient Portal Instructions kb - Leadership Thank You Letter kb Signatures: Dispatcher [employer] Jessica Wilde FNP-Gianluca COSTELLOP-Luna Villanueva, RN RN Bowen Baker RN RN rs5 Vega Monterroso MD MD ec2 Corrections: (The following items were deleted from the chart) 02/02 16:24 16:24 Chest Single View+[id number].[email or web address].[email or web address] ordered. EDMS EDMS 17:45 16:59 metoCLOPramide IVP 10 mg IVP once; over 1 to 2 minutes ordered. ec2 ec2 17:45 16:59 ED course: Patient arrives today for evaluation of shortness of breath and ec2 headache. Examination remarkable for well-appearing nontoxic dividual's otherwise in no acute distress with a reassuring examination. Obtain mono, CT imaging, chest x-ray as well as lab work. Will give the patient crystalloid, initial and Reglan for the patient's headache.. ec2
[2024-02-04 04:04] VITALS: BP 114/72; TEMP 97.9; O2SAT 100
--- NOTE | 2024-02-04 13:29 | EKG ---
Test Date: 2024-02-03 Test Time: 16:59:31 Airborne Sensor Specialist: GENET MEASUREMENT RESULTS: Intervals: Rate: 70 [place]: 176 QRSD: 84 QT: 382 QTc: 412 [place]: P: 53 [place]: 176 QRS: 65 T: 9 INTERPRETIVE STATEMENTS: Normal sinus rhythm Nonspecific ST and T wave abnormality Abnormal ECG Compared to ECG 02/03/2024 16:59:07 No significant changes Electronically Signed On 02-04-24 13:27:51 CDT by Gab Rajan
--- NOTE | 2024-02-04 13:30 | EKG ---
Test Date: 2024-02-03 Test Time: 16:59:07 Sustainability Director: GENET MEASUREMENT RESULTS: Intervals: Rate: 72 [place]: 182 QRSD: 80 QT: 386 QTc: 422 [place]: P: 67 [place]: 182 QRS: 66 T: 11 INTERPRETIVE STATEMENTS: Normal sinus rhythm Nonspecific ST and T wave abnormality Abnormal ECG Compared to ECG 02/01/2024 12:50:57 ST (T wave) deviation now present Sinus arrhythmia no longer present T-wave abnormality no longer present Electronically Signed On 02-04-24 13:27:52 CDT by Gab Rajan
== END 2024-02-03 19:58 | disposition home or self-care (01) ==
LOC: ER 15:38
DX: R51.9 Headache, unspecified (principal); R06.00 Dyspnea, unspecified; I48.91 Unspecified atrial fibrillation; Z86.73 Personal history of transient ischemic attack (TIA), and cerebral infarction without residual deficits; Z88.0 Allergy status to penicillin; Z88.6 Allergy status to analgesic agent; Z88.8 Allergy status to other drugs, medicaments and biological substances; Z91.048 Other nonmedicinal substance allergy status
CPT/HCPCS: 93005 ×2; 85025; 80048; 36415; 84484; 83880; 70450; 71045; 99284; J7030; J1200

== ENCOUNTER 2024-03-10 10:31 | Emergency (ER) | payer OTHER ==
[2024-03-10] MEDS ORDERED: HYDROCODONE/APAP 5/325 MG TAB ONE (11:15)
[2024-03-10] MEDS ORDERED: methocarbamoL 500 MG TAB ONE (11:20)
[2024-03-10 11:46] LABS: Absolute Basophils 0.1 K/uL (0-0.5); Absolute Eosinophils 0.1 K/uL (0-0.5); Absolute Monocytes 0.5 K/uL (0.1-1.3); Absolute Neutrophil 8.3 K/uL (1.8-8.0); Basophils % 0.6 % (0-1.3); Eosinophils % 0.9 % (0-4.4); Hematocrit 36.7 % (36.0-45.0); Hemoglobin 11.9 g/dL (12.0-15.0); Lymphocytes % 18.4 % (15.3-44.8); MCH 31.7 pg (27.0-35.0); MCHC 32.6 g/dL (32.0-36.0); MCV 97.3 fL (80-100); MPV 7.9 fL (7.6-11.3); Monocytes % 4.8 % (3.3-12.3); Neutrophils % 75.3 % (41.7-73.7); Platelets 267 thou/uL (152-406); RBC Red Blood Cell Count 3.77 M/uL (3.86-4.86); Red Cell Distribution Width 14.2 % (12.1-15.2)
[2024-03-10 12:02] LABS: Albumin 3.8 g/dL (3.4-5.0); Anion Gap 9.6 mEq/L (5.0-15.0); Bilirubin Total 0.4 mg/dL (0.2-1.0); Globulin 3.7 g/dL (2.3-3.5); Potassium 3.6 mEq/L (3.5-5.1); Protein, Total 7.5 g/dL (6.4-8.2)
--- NOTE | 2024-03-10 12:24 | RAD REPORT ---
EXAM DESCRIPTION: CT - Soft Tissue Neck W/Contr CLINICAL HISTORY: mid upper back/lower neck swelling COMPARISON: No comparisons TECHNIQUE All CT scans are performed using dose optimization technique as appropriate and may includ e automated exposure control or mA/KV adjustment according to patient size. FINDINGS: Nasopharyngeal tissues are normal in appearance. Fossa Rosenmller are normal. Parapharyngeal fat triangles are symmetric. Tongue base structures are normal. Epiglottis and aryepiglottic folds are normal. Piriform sinuses are well aerated. The vocal cords are normal in appearance. Normal size thyroid gland. Salivary glands are normal in appearance. Upper lung [place] are clear. Included intracranial contents are unremarkable. IMPRESSION: Negative examination.
--- NOTE | 2024-03-10 12:26 | RAD REPORT ---
EXAM DESCRIPTION: CT - Thorax W/ Con CLINICAL HISTORY: Chest pain mid upper back/lower neck swelling COMPARISON: Chest For Pe Angio dated 02/01/2024 FINDINGS: The lungs are clear. No pleural thickening or pleural effusion. No pneumothorax. No axillary, mediastinal or hilar adenopathy. Several right lateral nearly healed rib fractures noted. No acute fracture seen. No gross upper abdom inal finding. All CT scans are performed using dose optimization technique as appropriate and may include automated exposure control or mA/KV adjustment according to patient size. IMPRESSION: No acute intrathoracic finding.
--- NOTE | 2024-03-10 12:35 | ER ---
Nurse's Notes [facility] Name: Erica Tucker Age: 33 yrs Sex: Female : 1990 Arrival Date: 03/10/2024 Time: 10:31 Bed 20 Private MD: Diagnosis: Upper Back/Neck Swelling Presentation: 03/10 10:55 Chief complaint: Patient states: she started having back pain and back swelling that ap3 starts in the middle of the back and radiates to the right side. patient reports these symptoms have been going on for approx 2 months as well as she has been having dizziness since October. Coronavirus screen: At this time, the client does not indicate any symptoms associated with coronavirus-19. Ebola Screen: No symptoms or risks identified at this time. Initial Sepsis Screen: Does the patient meet any 2 criteria? HR > 90 bpm. Does the patient have a suspected source of infection? No. Patient's initial sepsis screen is negative. Risk Assessment: Do you want to hurt yourself or someone else? Patient reports no desire to harm self or others. Onset of symptoms is unknown. 10:55 Method Of Arrival: Wheelchair ap3 10:55 Acuity: NANCY 3 ap3 Triage Assessment: 11:01 General: Appears in no apparent distress. Behavior is calm, cooperative, appropriate ap3 for age. Pain: Complains of pain in right scapular area, right subscapular area, right mid back and right low back Pain currently is 8 out of 10 on a pain scale. Pain began "a few months ago". Neuro: Level of Consciousness is awake, alert, obeys commands, Oriented to person, place, time, situation. Cardiovascular: Patient's skin is warm and dry. Respiratory: Airway is patent Respiratory effort is even, unlabored, Respiratory pattern is regular, symmetrical. Musculoskeletal: Reports pain in back. Historical: - Allergies: 11:00 gluten intolerant; ap3 11:00 Lagevrio (EUA); ap3 11:00 molnupiravir; ap3 11:00 PENICILLINS; ap3 11:00 NSAIDS; ap3 11:00 Prednisone; ap3 11:00 Phenergan; ap3 - Home Meds: 11:58 modafinil 200 mg oral tablet 1 tab daily [Active]; methocarbamol 750 mg Oral tablet 1 nj1 tab 3 times per day [Active]; acetazolamide 500 mg Oral capsule, extended release 2 caps daily [Active]; Protonix 40 mg Oral tablet, delayed release (enteric coated) 1 tab daily [Active]; ondansetron HCl 4 mg Oral tablet 1 tab every 8 hours [Active]; montelukast 10 mg oral tablet 1 tab daily [Active]; metoprolol tartrate 25 mg Oral tablet 1 tabs 2 times per day [Active]; levothyroxine 50 mcg tablet 1 tabs daily [Active]; lamotrigine 50 mg oral Tablet,disintegrating 1 tabs HS [Active]; Iron CR Oral daily [Active]; gabapentin 300 mg oral capsule 1 cap 3 times per day [Active]; fluoxetine 40 mg Oral capsule 1 cap every evening [Active]; cholecalciferol (vitamin D3) 125 mcg (5,000 unit) oral capsule 1 cap daily [Active]; Celebrex 100 mg Oral capsule 1 cap daily [Active]; budesonide-formoterol 160-4.5 mcg/actuation inhalation HFA Aerosol Inhaler 2 puffs 2 times per day [Active]; apixaban 5 mg oral tablet 1 tab 2 times per day [Active]; albuterol sulfate 90 mcg/actuation Inhl HFA Aerosol Inhaler 2 puffs every 4 hours [Active]; Vraylar 1.5 mg oral capsule 1 cap HS [Active]; Percocet 10-325 mg Oral tablet 1 tab 3 times per day [Active]; trazodone 50 mg Oral tablet 1 tab every day at bedtime [Active]; potassium chloride 20 mEq Oral tablet, extended release 1 tab daily [Active]; tranexamic acid 650 mg oral tablet 1 tab 3 times per day for menorrhagia [Active]; - PMHx: 11:00 Ataxia; Atrial fibrillation; Cerebrovascular accident; Chronic pain; depressive ap3 disorder; Hypercholesterolemia; Hypothyroidism; Kidney stone; polyneuropathy; pseudotumor cerebri; TIA; Urinary incontinence; - PSHx: 11:00 Appendectomy; kidney stone surgery; Myringotomy and insertion of tympanic ventilation ap3 tube; [place] teeth extraction; - Immunization history:: Client reports receiving the 2nd dose of the Covid vaccine. - Infectious Disease History:: Denies. - Social history:: Smoking status: Patient denies any tobacco usage or history of. Screenin:03 Abuse screen: Denies threats or abuse. Nutritional screening: No deficits noted. ap3 Tuberculosis screening: No symptoms or risk factors identified. 12:12 [facility] ED Fall Risk Assessment (Adult) History of falling in the last 3 months, nj1 including since admission No falls in past 3 months (0 pts) Confusion or Disorientation No (0 pts) Intoxicated or Sedated No (0 pts) Impaired Gait Yes (1 pt) Mobility Assist Device Used Yes (1 pt) Altered Elimination No (0 pt) Score/Fall Risk Level 0 - 2 = Low Risk Oriented to surroundings, Maintained a safe environment, Hourly rounding (assess needs \\T\\ fall precautionary measures) done. Assessment: 11:15 General: Appears in no apparent distress. comfortable, Behavior is calm, cooperative, nj1 appropriate for age. 11:15 Pain: Complains of pain in back Pain currently is 9 out of 10 on a pain scale. Neuro: nj1 Level of Consciousness is awake, alert, obeys commands, Oriented to person, place, time, situation. Cardiovascular: Patient's skin is warm and dry. Respiratory: Airway is patent Respiratory effort is even, unlabored. Musculoskeletal: Reports pain in thoracic area. 12:05 Reassessment: In CT scan. nj1 13:01 Reassessment: Patient appears in no apparent distress at this time. Patient is alert, nj1 oriented x 3, equal unlabored respirations, skin warm/dry/pink. Discharge delayed, awaiting on medicine from pharmacy. Vital Signs: 10:55 BP 122 / 84; Pulse 93; Resp 17; Temp 98.8; Pulse Ox 98% on R/A; Weight 127.01 kg; ap3 Height 5 ft. 7 in. ; Pain 8/10; 13:02 BP 120 / 72; Pulse 75; Resp 16; Pulse Ox 98% on R/A; nj1 10:55 Body Mass Index 43.86 (127.01 kg, 170.18 cm) ap3 10:55 Pain Scale: Adult ap3 ED Course: 10:33 Patient arrived in ED. ts1 10:34 Vega Monterroso MD is Attending Physician. ec2 10:46 Chelsey Nuñez RN is Primary Nurse. nj1 11:00 Triage completed. ap3 11:03 Arm band placed on right wrist. ap3 11:15 Patient has correct armband on for positive identification. Bed in low position. Call [facility] light in reach. Adult w/ patient. Provided Education on: call light, fall precautions. 11:18 Notified ED physician of other Pt states raymond interacts with the percocet she takes at [facility] home and was told by her doctor she cannot take both. 11:30 Notified ED physician of other pt states she already takes methocarbamol tid. Wishes [facility] for Dr Monterroso to review her chart and "prescribe appropriately". This RN updating home med list for him to review. 11:30 Inserted saline lock: 22 gauge in right antecubital area, using aseptic technique. nj Blood collected. 12:17 Thorax W/ Con CT In Process Unspecified. EDMS 12:17 Soft Tissue Neck W/Contr In Process Unspecified. EDMS 13:02 No provider procedures requiring assistance completed. IV discontinued, intact, nj1 bleeding controlled, Pressure dressing applied. Administered Medications: 11:47 Not Given (Patient Refused): hydrocodone-acetaminophen5 mg-325 mg 1 tabs PO once nj 11:47 Not Given (Patient Refused): [id number] mg PO once nj 13:01 Drug: tiZANidine PO 6 mg PO once Route: PO; nj1 Medication: 13:03 VIS not applicable for this client. [facility] Outcome: 12:34 Discharge ordered by . ec2 13:02 Discharged to home ambulatory, with friend, krishna 13:02 Condition: stable 13:02 Discharge instructions given to patient, Instructed on discharge instructions, follow up and referral plans. Demonstrated understanding of instructions, follow-up care, 13:03 Patient left the ED. [facility] Signatures: Dispatcher [employer] EDMS Lexi Crump RN RN ap3 Chelsey Nuñez RN RN nj1 Trini Limon, CAMILA PAS ts1 Vega Monterroso MD MD ec2 Corrections: (The following items were deleted from the chart) 12:19 11:30 Notified ED physician of other pt states she already takes methocarbamol tid. [facility] Wishes for Dr Monterroso to review her chart and prescribed appropriately. This RN updating home med list for him to review. nj 12:19 11:59 Notified ED physician of [place] [id number]
--- NOTE | 2024-03-10 12:35 | EDPHYS ---
Physician Documentation [facility] Name: Erica Tucker Age: 33 yrs Sex: Female : 1990 Arrival Date: 03/10/2024 Time: 10:31 Bed 20 Private MD: ED Physician Vega Monterroso HPI: 03/10 11:14 This 33 yrs old Female presents to ER via Wheelchair with complaints of Back Pain. ec2 11:14 Patient arrives today for evaluation of swelling to the upper back, low neck. Patient ec2 reports no falls injuries or trauma. Patient complains of pain at this area. Patient reports no fevers or chills, no nausea or vomiting. Patient reports that she has had the symptoms for 2 months. . Historical: - Allergies: 11:00 gluten intolerant; ap3 11:00 Lagevrio (EUA); ap3 11:00 molnupiravir; ap3 11:00 PENICILLINS; ap3 11:00 NSAIDS; ap3 11:00 Prednisone; ap3 11:00 Phenergan; ap3 - Home Meds: 11:58 modafinil 200 mg oral tablet 1 tab daily [Active]; methocarbamol 750 mg Oral tablet 1 nj1 tab 3 times per day [Active]; acetazolamide 500 mg Oral capsule, extended release 2 caps daily [Active]; Protonix 40 mg Oral tablet, delayed release (enteric coated) 1 tab daily [Active]; ondansetron HCl 4 mg Oral tablet 1 tab every 8 hours [Active]; montelukast 10 mg oral tablet 1 tab daily [Active]; metoprolol tartrate 25 mg Oral tablet 1 tabs 2 times per day [Active]; levothyroxine 50 mcg tablet 1 tabs daily [Active]; lamotrigine 50 mg oral Tablet,disintegrating 1 tabs HS [Active]; Iron CR Oral daily [Active]; gabapentin 300 mg oral capsule 1 cap 3 times per day [Active]; fluoxetine 40 mg Oral capsule 1 cap every evening [Active]; cholecalciferol (vitamin D3) 125 mcg (5,000 unit) oral capsule 1 cap daily [Active]; Celebrex 100 mg Oral capsule 1 cap daily [Active]; budesonide-formoterol 160-4.5 mcg/actuation inhalation HFA Aerosol Inhaler 2 puffs 2 times per day [Active]; apixaban 5 mg oral tablet 1 tab 2 times per day [Active]; albuterol sulfate 90 mcg/actuation Inhl HFA Aerosol Inhaler 2 puffs every 4 hours [Active]; Vraylar 1.5 mg oral capsule 1 cap HS [Active]; Percocet 10-325 mg Oral tablet 1 tab 3 times per day [Active]; trazodone 50 mg Oral tablet 1 tab every day at bedtime [Active]; potassium chloride 20 mEq Oral tablet, extended release 1 tab daily [Active]; tranexamic acid 650 mg oral tablet 1 tab 3 times per day for menorrhagia [Active]; - PMHx: 11:00 Ataxia; Atrial fibrillation; Cerebrovascular accident; Chronic pain; depressive ap3 disorder; Hypercholesterolemia; Hypothyroidism; Kidney stone; polyneuropathy; pseudotumor cerebri; TIA; Urinary incontinence; - PSHx: 11:00 Appendectomy; kidney stone surgery; Myringotomy and insertion of tympanic ventilation ap3 tube; [place] teeth extraction; - Immunization history:: Client reports receiving the 2nd dose of the Covid vaccine. - Infectious Disease History:: Denies. - Social history:: Smoking status: Patient denies any tobacco usage or history of. ROS: 11:14 Constitutional: as per hpi ec2 Exam: 11:14 Constitutional: GEN: NAD Head: atraumatic Eyes: EOMI Ears: External ears are ec2 normal. CV: regular rate LUNGS: no respiratory distress ABD: non-distended, obese SKIN:, Soft tissue swelling noted to the upper back, low neck. No erythema, no warmth, no fluctuance appreciated. MSK: no evidence of trauma NEURO: moves all extremities equally Vital Signs: 10:55 BP 122 / 84; Pulse 93; Resp 17; Temp 98.8; Pulse Ox 98% on R/A; Weight 127.01 kg; ap3 Height 5 ft. 7 in. ; Pain 8/10; 13:02 BP 120 / 72; Pulse 75; Resp 16; Pulse Ox 98% on R/A; nj1 10:55 Body Mass Index 43.86 (127.01 kg, 170.18 cm) ap3 10:55 Pain Scale: Adult ap3 MDM: 10:45 Patient medically screened. ec2 11:14 Data reviewed: vital signs. ED course: Patient arrives today for evaluation of back and ec2 neck problems. Examination remarkable for skin findings as above. Will obtain CT imaging to evaluate for possible soft tissue mass. Additionally suspect patient's morbid obesity contributing to this as well, could be possible cushingoid. Doubt abscess or infection given appearance. Patient otherwise well-appearing in no acute distress.. 11:45 ED course: Patient requiring multiple cares, asking for different times of pain ec2 medication, patient reports that she is on Vicodin as well as methocarbamol, given lack of my suspicion for fracture or acute injury, I do not feel it will be appropriate to give her IV opiate pain medications at this time which is what she appears to be seeking. 03/10 11:12 Order name: CBC with Diff; Complete Time: 12:10 ec2 03/10 11:12 Order name: CMP; Complete Time: 12:10 ec2 03/10 11:12 Order name: Thorax W/ Con CT; Complete Time: 12:36 ec2 03/10 11:25 Order name: Soft Tissue Neck W/Contr; Complete Time: 12:27 EDMS Administered Medications: 11:47 Not Given (Patient Refused): hydrocodone-acetaminophen5 mg-325 mg 1 tabs PO once nj1 11:47 Not Given (Patient Refused): [id number] mg PO once nj1 13:01 Drug: tiZANidine PO 6 mg PO once Route: PO; nj1 Disposition Summary: 03/10/24 12:34 Discharge Ordered Condition: Stable ec2 Diagnosis - Upper Back/Neck Swelling ec2 Followup: ec2 - With: Private Physician - When: - Reason: Re-evaluation by your physician Discharge Instructions: - Discharge Summary Sheet ec2 Forms: - Medication Reconciliation Form ec2 - Antibiotic Education ec2 - Prescription Opioid Use ec2 - Patient Portal Instructions ec2 - Leadership Thank You Letter ec2 Signatures: Dispatcher [employer] Lexi Ng RN RN ap3 Chelsey Nuñez RN RN nj1 Vega Monterroso MD MD ec2
[2024-03-10] MEDS ORDERED: TIZANIDINE 4 MG TABLET PO ONE (13:00)
[2024-03-10 13:16] VITALS: BP 120/72; TEMP 98.8; O2SAT 98
== END 2024-03-10 13:03 | disposition home or self-care (01) ==
LOC: ER 10:31
DX: R22.2 Localized swelling, mass and lump, trunk (principal); Z86.73 Personal history of transient ischemic attack (TIA), and cerebral infarction without residual deficits; R22.1 Localized swelling, mass and lump, neck; Z88.0 Allergy status to penicillin; Z88.6 Allergy status to analgesic agent; Z88.8 Allergy status to other drugs, medicaments and biological substances
CPT/HCPCS: 85025; 36415; 80053; 71260; 70491; Q9967

== ENCOUNTER 2024-06-03 09:55 | Emergency (ER) | payer OTHER ==
[2024-06-03] MEDS ORDERED: PANTOPRAZOLE 40 MG INJ ONE (11:40)
[2024-06-03] MEDS ORDERED: NA CHLORIDE 0.9% 1,000 ML ONE (11:40)
[2024-06-03] MEDS ORDERED: ONDANSETRON 4 MG/2 ML VIAL ONE (11:40)
[2024-06-03 12:08] LABS: Absolute Lymphocytes (CBC) 1.7 K/uL (0.7-4.9); Absolute Monocytes 0.6 K/uL (0.1-1.3); Absolute Neutrophil 10.9 K/uL (1.8-8.0); Basophils % 0.3 % (0-1.3); Eosinophils % 0.1 % (0-4.4); Hematocrit 39.4 % (36.0-45.0); Hemoglobin 12.9 g/dL (12.0-15.0); Lymphocytes % 12.7 % (15.3-44.8); MCH 32.2 pg (27.0-35.0); MCHC 32.6 g/dL (32.0-36.0); MCV 98.8 fL (80-100); MPV 7.8 fL (7.6-11.3); Monocytes % 4.9 % (3.3-12.3); Platelets 283 thou/uL (152-406); RBC Red Blood Cell Count 3.99 M/uL (3.86-4.86); Red Cell Distribution Width 14.9 % (12.1-15.2)
[2024-06-03 12:14] LABS: Calcium Oxalate Crystals- Ur Many /HPF (None Seen); Urine Bacteria >50 /HPF (<20); Urine Bilirubin NEGATIVE (Negative); Urine Blood Negative (Negative); Urine Clarity Extremely Turbid (Clear); Urine Color Yellow (Yellow); Urine Culture Reflex Order NOT NEEDED; Urine Glucose NEGATIVE (Negative); Urine Ketones NEGATIVE (Negative); Urine Microscopic Reflex YN ORDER UMIC; Urine Nitrite NEGATIVE (Negative); Urine Protein 1+ (Negative); Urine RBC <5 /HPF (None Seen); Urine Urobilinogen Normal (Normal); Urine WBC None Seen /HPF (<5); Urine pH 6.5 (5.0-7.0)
[2024-06-03 12:28] LABS: Albumin 4.2 g/dL (3.4-5.0); Albumin/Globulin Ratio 1.1 (1.1-1.8); Anion Gap 8.5 mEq/L (5.0-15.0); Bilirubin Total 0.4 mg/dL (0.2-1.0); Globulin 3.9 g/dL (2.3-3.5); Potassium 3.5 mEq/L (3.5-5.1); Protein, Total 8.1 g/dL (6.4-8.2)
[2024-06-03] MEDS ORDERED: HYDROMORPHONE HCL 1 MG/ML INJ ONE (12:51)
--- NOTE | 2024-06-03 13:01 | RAD REPORT ---
EXAM DESCRIPTION: CTAbdomen Pelvis W Contrast - 06/03/2024 12:39 pm CLINICAL HISTORY: Abdominal pain. ABD PAIN COMPARISON: <Comparisons> TECHNIQUE: Biphasic CT imaging of the abdomen and pelvis was performed with 100 ml non-ionic IV cont rast. All CT scans are performed using dose optimization technique as appropriate and may include automated exposure control or mA/KV adjustment according to patient size. FINDINGS: The lung bases are clear.Trace pleural fluid bilaterally. The liver demonstrates mild fatty infiltration. Spleen, pancreas, adrenal glands and kidneys are with in normal limits. No bowel obstruction, free air, free fluid or abscess. Appendectomy. No evidence of significant lym phadenopathy. No suspicious bony findings. IMPRESSION: No acute intra-abdominal or pelvic finding. Fatty liver.
--- NOTE | 2024-06-03 14:35 | ER ---
Nurse's Notes [facility] Name: Erica Tucker Age: 34 yrs Sex: Female : 1990 Arrival Date: 06/03/2024 Time: 09:55 Bed 13 Private MD: Diagnosis: GI Bleed/ Gastrointestinal hemorrhage, unspecified;Vomiting;Obesity due to excess calories Presentation: 06/03 10:26 Chief complaint: Patient states: Rectal bleeding with diarrhea for 1 week. N/V for 2 jb4 days, vomit had coffee grounds in it this AM. Coronavirus screen: Client denies travel out of the [place] in the last 14 days. At this time, the client does not indicate any symptoms associated with coronavirus-19. Ebola Screen: Patient denies travel to an Ebola-affected area in the 21 days before illness onset. Initial Sepsis Screen: Does the patient meet any 2 criteria? No. Patient's initial sepsis screen is negative. Does the patient have a suspected source of infection? No. Patient's initial sepsis screen is negative. Risk Assessment: Do you want to hurt yourself or someone else? Patient reports no desire to harm self or others. Onset of symptoms was May 28, 2024. 10:26 Method Of Arrival: Ambulatory jb4 10:26 Acuity: NANCY 3 jb4 VOLUNTEER COORDINATOR: 12:05 LMP N/A - , Not mb9 Historical: - Allergies: 10:25 Adhesives; jb4 10:25 gluten intolerant; jb4 10:25 Lagevrio (EUA); jb4 10:25 molnupiravir; jb4 10:25 NSAIDS; jb4 10:25 PENICILLINS; jb4 10:25 Phenergan; jb4 10:25 Prednisone; jb4 - PMHx: 10:25 depressive disorder; Hypothyroidism; Ataxia; TIA; polyneuropathy; pseudotumor cerebri; jb4 Hypercholesterolemia; Atrial fibrillation; Cerebrovascular accident; Chronic pain; Kidney stone; Urinary incontinence; - PSHx: 10:25 Appendectomy; Cardiac Ablation; kidney stone surgery; Myringotomy and insertion of jb4 tympanic ventilation tube; [place] teeth extraction; - Immunization history:: Adult Immunizations up to date. - Infectious Disease History:: Denies. - Social history:: Smoking status: Patient denies any tobacco usage or history of. Screenin:05 [facility] ED Fall Risk Assessment (Adult) History of falling in the last 3 months, mb9 including since admission No falls in past 3 months (0 pts) Confusion or Disorientation No (0 pts) Intoxicated or Sedated No (0 pts) Impaired Gait No (0 pts) Mobility Assist Device Used No (0 pt) Altered Elimination No (0 pt) Score/Fall Risk Level 0 - 2 = Low Risk Oriented to surroundings, Maintained a safe environment, Educated pt \T\ family on fall prevention, incl call for assistance when getting out of bed. Abuse screen: Denies threats or abuse. Nutritional screening: No deficits noted. Tuberculosis screening: No symptoms or risk factors identified. Assessment: 12:04 General: Appears in no apparent distress. Behavior is calm, cooperative. Pain: mb9 Complains of pain in abdomen Pain currently is 10 out of 10 on a pain scale. Quality of pain is described as throbbing, Pain began gradually, Is continuous. Neuro: Root Agitation-Sedation Scale (RASS): 0 - Alert and Calm Level of Consciousness is awake, alert, obeys commands, Oriented to person, place, time, situation, Appropriate for age. Cardiovascular: Heart tones S1 S2 present Patient's skin is warm and dry. Respiratory: Airway is patent Respiratory effort is even, unlabored, Respiratory pattern is regular, symmetrical, Breath sounds are clear bilaterally. GI: Abdomen is round non-distended, Bowel sounds present X 4 quads. Abd is soft Abdomen is tender to palpation in right upper quadrant, left upper quadrant and right lower quadrant Reports rectal bleeding, nausea, vomiting. : No signs and/or symptoms were reported regarding the genitourinary system. EENT: No signs and/or symptoms were reported regarding the EENT system. Derm: Skin is pink, warm \T\ dry. Musculoskeletal: Range of motion: intact in all extremities. 13:00 Reassessment: No changes from previously documented assessment. Patient and/or family mb9 updated on plan of care and expected duration. Pain level reassessed. Patient is alert, oriented x 3, equal unlabored respirations, skin warm/dry/pink. 14:04 Reassessment: Patient and/or family updated on plan of care and expected duration. Pain mb9 level reassessed. Patient is alert, oriented x 3, equal unlabored respirations, skin warm/dry/pink. Patient states feeling better. Patient states symptoms have improved. Vital Signs: 10:26 BP 146 / 88; Pulse 70; Resp 18; Temp 98.3; Pulse Ox 98% ; Weight 127.01 kg; Height 5 jb4 ft. 7 in. ; Pain 8/10; 12:56 BP 135 / 82; Pulse 74; Resp 18; Pulse Ox 100% on R/A; mb9 14:23 BP 122 / 91; Pulse 64; Resp 18; Pulse Ox 100% on R/A; mb9 10:26 Body Mass Index 43.85 (127.01 kg, 170.18 cm) jb4 10:26 Pain Scale: Adult 4 ED Course: 09:59 Patient arrived in ED. mr 09:59 Ajay Sarkar MD is Attending Physician. norbert 10:28 Triage completed. jb4 10:28 Arm band placed on. jb4 11:38 Negar Gutierrez RN is Primary Nurse. mb9 12:02 Accessed peripheral vein via ultrasound, utilizing dynamic ultrasound technique using mb9 ,sterile technique, per hospital protocol. Clean \T\ dry. Dressing intact. Good blood return. Flushes easily. 20 g right FA. 12:04 CBC with Diff Sent. mb9 12:04 CMP Sent. mb9 12:04 Lipase Sent. mb9 12:04 Test, Urine Sent. mb9 12:04 Urinalysis w/ reflexes Sent. mb9 12:05 Patient requests pain medication. mb9 12:05 Initial lab(s) drawn, by me, sent to lab. Urine collected: clean catch specimen, clear. mb9 12:06 Placed in gown. Bed in low position. Call light in reach. Side rails up X 1. Provided mb9 Education on: press call light if needing anything. Client placed on continuous cardiac and pulse oximetry monitoring. NIBP monitoring applied. Door closed. Noise minimized. Warm blanket given. Pillow given. 12:06 No provider procedures requiring assistance completed. mb9 12:40 CT Abd/Pelvis - IV Contrast Only In Process Unspecified. EDMS 12:47 Patient requests pain medication. mb9 14:34 Dilip Lopze MD is Referral Physician. norbert 14:45 IV discontinued, intact, bleeding controlled, No redness/swelling at site. Pressure mb9 dressing applied. Administered Medications: 11:57 Drug: Ondansetron IVP 4 mg IVP once; over 2 minutes Route: IVP; Site: right forearm; mb9 12:56 Follow up: Response: No adverse reaction mb9 12:03 Drug: NS 0.9% IV 1000 ml IV at 1 bolus Per protocol; 1000 mL bolus Route: IV; Rate: 1 mb9 bolus; Site: right forearm; 13:24 Follow up: Response: No adverse reaction; IV Status: Completed infusion mb9 12:03 Drug: Pantoprazole IVP 40 mg IVP once Route: IVP; Site: right forearm; mb9 12:56 Follow up: Response: No adverse reaction mb9 12:56 Drug: HYDROmorphone IVP 1 mg IVP once Route: IVP; Site: right forearm; mb9 13:24 Follow up: Response: No adverse reaction mb9 Medication: 12:06 VIS not applicable for this client. mb9 Outcome: 14:34 Discharge ordered by . norbert 14:45 Discharged to home ambulatory, mb9 14:45 Condition: stable 14:45 Discharge instructions given to patient, Instructed on discharge instructions, follow up and referral plans. Demonstrated understanding of instructions, follow-up care, medications, Prescriptions given X 4, 14:46 Patient left the ED. mb9 Signatures: Dispatcher [employer] EDMS Ajay Sarkar MD MD cha Rivera, Mary, Reg Bill Alonzo, RN RN jb4 Negar Gutierrez, FANTASMA RN mb9 Nury Pyle, FANTASMA RN ar6 Corrections: (The following items were deleted from the chart) 11:16 10:34 Nury Pyle, FANTASMA is Primary Nurse. [id number]
--- NOTE | 2024-06-03 14:35 | EDPHYS ---
Physician Documentation [facility] Name: Erica Tucker Age: 34 yrs Sex: Female : 1990 Arrival Date: 06/03/2024 Time: 09:55 Bed 13 Private MD: MALORIE Physician Ajay Sarkar HPI: 06/03 14:26 This 34 yrs old Female presents to ER via Ambulatory with complaints of norbert Rectal Bleeding, Vomiting. 14:26 The patient presents to the emergency department with bleeding from the rectum/anus, norbert that is mild. Onset: The symptoms/episode began/occurred 3 day(s) ago. Context: the patient has no known special context relating to the rectal area complaint(s). Modifying factors: The symptoms are alleviated by remaining still, The symptoms are aggravated by bowel movement. Associate signs and symptoms: Pertinent positives: abdominal pain in the epigastric area, right upper quadrant and left upper quadrant, lower GI bleeding, bright red, vomiting, bile, stomach contents. The patient has experienced similar episodes in the past, multiple times. 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 - , Not mb9 Historical: - Allergies: 10:25 Adhesives; jb4 10:25 gluten intolerant; jb4 10:25 Lagevrio (EUA); jb4 10:25 molnupiravir; jb4 10:25 NSAIDS; jb4 10:25 PENICILLINS; jb4 10:25 Phenergan; jb4 10:25 Prednisone; jb4 - PMHx: 10:25 depressive disorder; Hypothyroidism; Ataxia; TIA; polyneuropathy; pseudotumor cerebri; jb4 Hypercholesterolemia; Atrial fibrillation; Cerebrovascular accident; Chronic pain; Kidney stone; Urinary incontinence; - PSHx: 10:25 Appendectomy; Cardiac Ablation; kidney stone surgery; Myringotomy and insertion of jb4 tympanic ventilation tube; Atkins teeth extraction; - Immunization history:: Adult Immunizations up to date. - Infectious Disease History:: Denies. - Social history:: Smoking status: Patient denies any tobacco usage or history of. ROS: 14:28 Constitutional: Negative for fever, chills, and weight loss, Eyes: Negative for injury, norbert pain, redness, and discharge, ENT: Negative for injury, pain, and discharge, Neck: Negative for injury, pain, and swelling, Cardiovascular: Negative for chest pain, palpitations, and edema, Respiratory: Negative for shortness of breath, cough, wheezing, and pleuritic chest pain, Back: Negative for injury and pain, : Negative for injury, bleeding, discharge, and swelling, MS/Extremity: Negative for injury and deformity, Skin: Negative for injury, rash, and discoloration, Neuro: Negative for headache, weakness, numbness, tingling, and seizure, Psych: Negative for depression, anxiety, suicide ideation, homicidal ideation, and hallucinations, Allergy/Immunology: Negative for hives, rash, and allergies, Endocrine: Negative for neck swelling, polydipsia, polyuria, polyphagia, and marked weight changes, Hematologic/Lymphatic: Negative for swollen nodes, abnormal bleeding, and unusual bruising, 14:28 Abdomen/GI: Positive for abdominal pain, nausea and vomiting, abdominal cramps, abdominal distension, rectal bleeding, Exam: 14:28 Constitutional: This is a well developed, well nourished patient who is awake, alert, norbert and in no acute distress. Head/Face: Normocephalic, atraumatic. Eyes: Pupils equal round and reactive to light, extra-ocular motions intact. Lids and lashes normal. Conjunctiva and sclera are non-icteric and not injected. Cornea within normal limits. Periorbital areas with no swelling, redness, or edema. ENT: Nares patent. No nasal discharge, no septal abnormalities noted. Tympanic membranes are normal and external auditory canals are clear. Oropharynx with no redness, swelling, or masses, exudates, or evidence of obstruction, uvula midline. Mucous membranes moist. Neck: Trachea midline, no thyromegaly or masses palpated, and no cervical lymphadenopathy. Supple, full range of motion without nuchal rigidity, or vertebral point tenderness. No Meningismus. Chest/axilla: Normal chest wall appearance and motion. Nontender with no deformity. No lesions are appreciated. Cardiovascular: Regular rate and rhythm with a normal S1 and S2. No gallops, murmurs, or rubs. Normal PMI, no JVD. No pulse deficits. Respiratory: Lungs have equal breath sounds bilaterally, clear to auscultation and percussion. No rales, rhonchi or wheezes noted. No increased work of breathing, no retractions or nasal flaring. Back: No spinal tenderness. No costovertebral tenderness. Full range of motion. Skin: Warm, dry with normal turgor. Normal color with no rashes, no lesions, and no evidence of cellulitis. MS/ Extremity: Pulses equal, no cyanosis. Neurovascular intact. Full, normal range of motion. Neuro: Awake and alert, GCS 15, oriented to person, place, time, and situation. Cranial nerves II-XII grossly intact. Motor strength 5/5 in all extremities. Sensory grossly intact. Cerebellar exam normal. Normal gait. Psych: Awake, alert, with orientation to person, place and time. Behavior, mood, and affect are within normal limits. 14:28 Abdomen/GI: Inspection: distension, obese Bowel sounds: normal, Palpation: mild abdominal tenderness, in all quadrants, Liver: no appreciated palpable abnormalities, Hernia: not appreciated, Vital Signs: 10:26 BP 146 / 88; Pulse 70; Resp 18; Temp 98.3; Pulse Ox 98% ; Weight 127.01 kg; Height 5 jb4 ft. 7 in. ; Pain 8/10; 12:56 BP 135 / 82; Pulse 74; Resp 18; Pulse Ox 100% on R/A; mb9 14:23 BP 122 / 91; Pulse 64; Resp 18; Pulse Ox 100% on R/A; mb9 10:26 Body Mass Index 43.85 (127.01 kg, 170.18 cm) jb4 10:26 Pain Scale: Adult jb4 MDM: 09:59 Patient medically screened. norbert 14:31 Differential diagnosis: Nonspecific abd pain, gastritis, pancreatitis, diverticulitis, norbert viral gastroenteritis, gastroenteritis, hemorrhoids, gastroesophageal reflux disease, Peptic Ulcer Disease, Perf. Duodenal Ulcer. Data reviewed: vital signs, nurses notes, lab test result(s), radiologic studies, CT scan. Consideration of Admission/Observation Escalation of care including admission/observation considered. I considered the following discharge prescriptions or medication management in the emergency department Medications were administered in the Emergency Department. See MAR. Independent interpretation of the following test(s) in the Emergency Department CT Scan: My interpretation is ct abd/pelvis. Test considered but Not performed: Ultrasound no abd usg. Historians other than the Patient: Parent: mom , well informed. Care significantly affected by the following chronic conditions: Obesity, depression, ataxia, pseudocerebri, tia, cva. 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 06/03 10:03 Order name: CBC with Diff; Complete Time: 14:05 [facility] 06/03 10:03 Order name: CMP; Complete Time: 14:05 [facility] 06/03 10:03 Order name: Lipase; Complete Time: 14: [facility] 06/03 10:03 Order name: Test, Urine; Complete Time: 14:05 [facility] 06/03 10:03 Order name: Urinalysis w/ reflexes; Complete Time: 14:05 [facility] 06/03 10:03 Order name: CT Abd/Pelvis - IV Contrast Only; Complete Time: 14: [facility] 06/03 10:03 Order name: IV Saline Lock; Complete Time: 12:04 [facility] 06/03 10:03 Order name: Labs collected and sent; Complete Time: 12:03 [facility] Administered Medications: 11:57 Drug: Ondansetron IVP 4 mg IVP once; over 2 minutes Route: IVP; Site: right forearm; mb9 12:56 Follow up: Response: No adverse reaction mb9 12:03 Drug: NS 0.9% IV 1000 ml IV at 1 bolus Per protocol; 1000 mL bolus Route: IV; Rate: 1 mb9 bolus; Site: right forearm; 13:24 Follow up: Response: No adverse reaction; IV Status: Completed infusion mb9 12:03 Drug: Pantoprazole IVP 40 mg IVP once Route: IVP; Site: right forearm; mb9 12:56 Follow up: Response: No adverse reaction mb9 12:56 Drug: HYDROmorphone IVP 1 mg IVP once Route: IVP; Site: right forearm; mb9 13:24 Follow up: Response: No adverse reaction mb9 Disposition Summary: 06/03/24 14:34 Discharge Ordered Notes: Location: Home norbert Problem: new norbert Symptoms: have improved norbert Condition: Stable norbert Diagnosis - GI Bleed/ Gastrointestinal hemorrhage, unspecified norbert - Vomiting norbert - Obesity due to excess calories norbert Followup: norbert - With: Private Physician - When: 2 - 3 days - Reason: Recheck today's complaints, Continuance of care, Re-evaluation by your physician Followup: norbert - With: Jessica, Dilip, MD - When: 2 - 3 days - Reason: Recheck today's complaints, Continuance of care, Re-evaluation by your physician Discharge Instructions: - Discharge Summary Sheet norbert - Gastrointestinal Bleeding norbert - Hematemesis norbert - Obesity, Adult norbert - Rectal Bleeding norbert - Rectal Bleeding, [id number] norbert - Obesity, Adult, [id number] norbert - Vomiting, Adult norbert - Upper Gastrointestinal Bleeding norbert - Lower Gastrointestinal Bleeding [facility] Forms: - Medication Reconciliation Form [facility] - Antibiotic Education norbert - Prescription Opioid Use norbert - Patient Portal Instructions [facility] - Leadership Thank You Letter [facility] Prescriptions: - ondansetron 4 mg Oral Tablet,disintegrating - take 1 tablet ORAL route every 6-8 hours for 5 days; 24 tablet; Refills: 0, [facility] Product Selection Permitted - Carafate 1 gram Oral Tablet - take 1 tablet ORAL route 4 times per day take on an empty stomach, beginning on [facility] waking and last dose at bedtime; 100 tablet; Refills: 0, Product Selection Permitted - Protonix 40 mg Oral tablet, delayed release (enteric coated) - take 1 tablet ORAL route every 12 hours; 60 tablet; Refills: 0, Product [facility] Selection Permitted - dicyclomine 20 mg Oral tablet - take 1 tablet ORAL route 4 times per day; 28 tablet; Refills: 0, Product [facility] Selection Permitted Signatures: Dispatcher [employer] EDAjay Emanuel MD MD cha Bryson, James, RN RN jb4 Negar Gutierrez, RN RN mb9 Corrections: (The following items were deleted from the chart) 10:04 10:04 CBC+H.LAB.BRZ ordered. EDMS EDMS 10:04 10:04 COMPREHENSIVE METABOLIC PANEL+C.LAB.BRZ ordered. EDMS EDMS 10:04 10:04 LIPASE+C.LAB.BRZ ordered. EDMS EDMS 10:04 10:04 Test, Urine+UC.LAB.BRZ ordered. EDMS EDMS 10:04 10:04 Urinalysis+U.LAB.BRZ ordered. EDMS EDMS
[2024-06-03 18:22] VITALS: O2SAT 100
[2024-06-03 18:25] VITALS: BP 122/91
[2024-06-03 18:30] VITALS: TEMP 97
== END 2024-06-03 14:46 | disposition home or self-care (01) ==
LOC: ER 09:55
DX: K92.2 Gastrointestinal hemorrhage, unspecified (principal); R11.10 Vomiting, unspecified; E66.09 Other obesity due to excess calories; Z68.41 Body mass index [BMI] 40.0-44.9, adult
CPT/HCPCS: 85025; 81001; 36415; 81025; 83690; 80053; 74177; Q9967; J2470; J1170; J2405; J7030; 96361; 96374; 96375; 99285

== ENCOUNTER 2024-06-06 16:45 | Emergency (ER) | payer OTHER ==
[2024-06-06] MEDS ORDERED: MORPHINE 4 MG/ML SYR ONE ×2 (18:06→19:38)
[2024-06-06] MEDS ORDERED: ONDANSETRON 4 MG/2 ML VIAL ONE ×2 (18:06→19:38)
[2024-06-06] MEDS ORDERED: NA CHLORIDE 0.9% 1,000 ML ONE (18:07)
[2024-06-06 18:19] LABS: Absolute Basophils 0.1 K/uL (0-0.5); Absolute Eosinophils 0.1 K/uL (0-0.5); Absolute Lymphocytes (CBC) 2.2 K/uL (0.7-4.9); Absolute Monocytes 0.8 K/uL (0.1-1.3); Absolute Neutrophil 9.1 K/uL (1.8-8.0); Basophils % 0.7 % (0-1.3); Eosinophils % 0.7 % (0-4.4); Hematocrit 36.9 % (36.0-45.0); Hemoglobin 12.5 g/dL (12.0-15.0); Lymphocytes % 18.1 % (15.3-44.8); MCH 32.8 pg (27.0-35.0); MCHC 33.9 g/dL (32.0-36.0); MCV 96.7 fL (80-100); MPV 7.8 fL (7.6-11.3); Monocytes % 6.7 % (3.3-12.3); Neutrophils % 73.8 % (41.7-73.7); Platelets 266 thou/uL (152-406); RBC Red Blood Cell Count 3.81 M/uL (3.86-4.86); Red Cell Distribution Width 14.8 % (12.1-15.2)
[2024-06-06 18:35] LABS: Albumin 3.8 g/dL (3.4-5.0); Albumin/Globulin Ratio 1.1 (1.1-1.8); Anion Gap 12.2 mEq/L (5.0-15.0); Bilirubin Total 0.4 mg/dL (0.2-1.0); Globulin 3.5 g/dL (2.3-3.5); Potassium 3.2 mEq/L (3.5-5.1); Protein, Total 7.3 g/dL (6.4-8.2)
--- NOTE | 2024-06-06 19:14 | RAD REPORT ---
EXAM DESCRIPTION: CTAbdomen Pelvis W Contrast - 06/06/2024 7:02 pm CLINICAL HISTORY: Abdominal pain. ABD PAIN COMPARISON: <Comparisons> TECHNIQUE: Biphasic CT imaging of the abdomen and pelvis was performed with 100 ml non-ionic IV cont rast. All CT scans are performed using dose optimization technique as appropriate and may include automated exposure control or mA/KV adjustment according to patient size. FINDINGS: The lung bases are clear.Healed right lateral inferior thoracic rib fractures. The liver, spleen, pancreas, adrenal glands and kidneys are within normal limits. No bowel obstruction, free air, free fluid or abscess. Appendectomy. No evidence of significant lym phadenopathy. No suspicious bony findings. IMPRESSION: No acute intra-abdominal or pelvic finding.
--- NOTE | 2024-06-06 19:38 | EDPHYS ---
Physician Documentation [facility] Name: Erica Tucker Age: 34 yrs Sex: Female : 1990 Arrival Date: 06/06/2024 Time: 16:45 Bed 19 Private MD: MALORIE Physician Rey Almanzar HPI: 06/06 20:18 This 34 yrs old Female presents to ER via Ambulatory with complaints of Neck Swelling, rt Headache, Abdominal Pain. 20:18 Patient was seen recently for abdominal pain, nausea, vomiting, subsequently rt discharged. Patient states that she no longer has blood in her vomit but is unable to keep down any of her pain medications. 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 States that this is painful. Does have an appointment with neuro. Denies other acute complaints at this time, symptoms are moderate severity, no other aggravating or elevating factors.. 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, Not me1 Historical: - Allergies: 17:12 Adhesives; nj1 17:12 gluten intolerant; nj1 17:12 Lagevrio (EUA); nj1 17:12 molnupiravir; nj1 17:12 NSAIDS; nj1 17:12 PENICILLINS; nj1 17:12 Phenergan; nj1 17:12 Prednisone; nj1 - PMHx: 17:12 Ataxia; Atrial fibrillation; Cerebrovascular accident; Chronic pain; depressive nj1 disorder; Hypercholesterolemia; Hypothyroidism; Kidney stone; polyneuropathy; pseudotumor cerebri; TIA; Urinary incontinence; Brain lesion (frontal and eleazar) (Unknown); Degenerative disc disease (Unknown); Cervical spondylosis (Unknown); Rheumatoid arthritis; Osteoarthritis; Lordosis (cervical and lumbar); - PSHx: 17:12 Appendectomy; kidney stone surgery; Cardiac Ablation; Donovan teeth extraction; nj1 Myringotomy and insertion of tympanic ventilation tube; - Immunization history:: Client reports receiving the 2nd dose of the Covid vaccine. - Infectious Disease History:: Denies. - Social history:: Smoking status: Patient/guardian denies using tobacco, the patient reports quitting approximately 4 years ago. - Family history:: not pertinent. ROS: 20:18 Constitutional: Negative for fever, chills, and weight loss, Cardiovascular: Negative rt for chest pain, palpitations, and edema, Respiratory: Negative for shortness of breath, cough, wheezing, and pleuritic chest pain, MS/Extremity: Negative for injury and deformity, Skin: Negative for injury, rash, and discoloration, Neuro: Negative for headache, weakness, numbness, tingling, and seizure, 20:18 Abdomen/GI: Positive for abdominal pain, nausea and vomiting, Exam: 20:18 Constitutional: This is a well developed, well nourished patient who is awake, alert, rt and in no acute distress. Head/Face: Normocephalic, atraumatic. Chest/axilla: Normal chest wall appearance and motion. Nontender with no deformity. No lesions are appreciated. Cardiovascular: Regular rate and rhythm with a normal S1 and S2. No gallops, murmurs, or rubs. Normal PMI, no JVD. No pulse deficits. Respiratory: Lungs have equal breath sounds bilaterally, clear to auscultation and percussion. No rales, rhonchi or wheezes noted. No increased work of breathing, no retractions or nasal flaring. Skin: Warm, dry with normal turgor. Normal color with no rashes, no lesions, and no evidence of cellulitis. MS/ Extremity: Pulses equal, no cyanosis. Neurovascular intact. Full, normal range of motion. Neuro: Awake and alert, GCS 15, oriented to person, place, time, and situation. Cranial nerves II-XII grossly intact. Motor strength 5/5 in all extremities. Sensory grossly intact. Cerebellar exam normal. Normal gait. 20:18 Abdomen/GI: Mild tenderness to the left upper quadrant without rebound, guarding, distention, Vital Signs: 17:09 BP 124 / 73; Pulse 83; Resp 17; Temp 97.2(TE); Pulse Ox 98% ; Weight 127.01 kg; Height nj1 5 ft. 7 in. ; Pain 8/10; 18:00 BP 120 / 71; Pulse 75; Resp 17; Pulse Ox 98% on R/A; me1 19:00 BP 113 / 61; Pulse 79; Resp 16; Pulse Ox 98% ; me1 20:00 BP 123 / 82; Pulse 79; Resp 16; Temp 97.9; Pulse Ox 98% ; me1 20:21 Pain 4/10; me1 17:09 Body Mass Index 43.85 (127.01 kg, 170.18 cm) nj1 17:09 Pain Scale: Adult nj1 20:21 Pain Scale: Adult me1 MDM: 17:29 Patient medically screened. rt 20:18 Differential diagnosis: Bowel obstruction, gastroenteritis, nausea, vomiting. Data rt reviewed: vital signs, nurses notes, lab test result(s), radiologic studies. Consideration of Admission/Observation Escalation of care including admission/observation considered. Symptoms significantly improving with treatment in the ED, stable for outpatient care, will change patient's antiemetic regiment. Believe that the worsening neck pain is due to not keeping down any of her pain medications. Do not believe that emergent workup of the nerve return present acute at this time, she has to follow-up as an outpatient.. I considered the following discharge prescriptions or medication management in the emergency department Medications were administered in the Emergency Department. See MAR. Independent interpretation of the following test(s) in the Emergency Department CT Scan: My interpretation is No bowel obstruction syndrome interpretation of CT scan images. Care significantly affected by the following chronic conditions: Nerve root tumor. Counseling: I had a detailed discussion with the patient and/or guardian regarding the historical points, exam findings, and any diagnostic results supporting the discharge/admit diagnosis, lab results, radiology results, the need for outpatient follow up, to return to the emergency department if symptoms worsen or persist or if there are any questions or concerns that arise at home. Response to treatment: the patient's symptoms have markedly improved after treatment. 06/06 17:48 Order name: CBC with Diff; Complete Time: 18:39 rt 06/06 17:48 Order name: CMP; Complete Time: 18:39 rt 06/06 17:48 Order name: Lipase; Complete Time: 18:39 rt 08 17:48 Order name: CT Abd/Pelvis - IV Contrast Only; Complete Time: 19:21 rt 08 17:48 Order name: IV Saline Lock; Complete Time: 18:04 rt 08 17:48 Order name: Labs collected and sent; Complete Time: 18:04 rt Administered Medications: 18:12 Drug: NS 0.9% IV 1000 ml IV at 1 bolus Per protocol; 1000 mL bolus Route: IV; Rate: 1 me1 bolus; Site: left antecubital; 20:24 Follow up: Response: No adverse reaction; IV Status: Completed infusion me1 18:12 Drug: morphine IVP or IV 4 mg IVP once over 4 mins Route: IVP; Infused Over: 4 mins; me1 Site: left antecubital; 19:38 Follow up: Response: No adverse reaction; Pain is decreased me1 18:12 Drug: Ondansetron IVP 4 mg IVP once; over 2 minutes Route: IVP; Site: left antecubital; me1 19:38 Follow up: Response: No adverse reaction; Nausea is decreased me1 19:44 Drug: morphine IVP or IV 4 mg IVP once over 4 mins Route: IVP; Infused Over: 4 mins; me1 Site: left antecubital; 20:21 Follow up: Pain 4/10 Adult; Response: No adverse reaction; Pain is decreased me1 19:44 Drug: Ondansetron IVP 4 mg IVP once; over 2 minutes Route: IVP; Site: left antecubital; me1 20:21 Follow up: Response: No adverse reaction me1 Disposition Summary: 06/06/24 19:38 Discharge Ordered Notes: Location: Home rt Problem: new rt Symptoms: have improved rt Condition: Stable rt Diagnosis - Abdominal pain, unspecified rt - Nausea with vomiting, unspecified rt Followup: rt - With: Private Physician - When: 2 - 3 days - Reason: Discharge Instructions: - Discharge Summary Sheet rt - Abdominal Pain, Adult rt - Nausea and Vomiting, Adult rt Forms: - Medication Reconciliation Form rt - Antibiotic Education rt - Prescription Opioid Use rt - Patient Portal Instructions rt - Leadership Thank You Letter rt Prescriptions: - ondansetron 4 mg Oral Tablet,disintegrating - take 1 tablet ORAL route every 6 hours as needed for nausea and vomiting; 30 rt tablet; Refills: 0, Product Selection Permitted - Reglan 10 mg Oral tablet - take 1 tablet ORAL route every 6 hours as needed for nausea and vomiting; 30 rt tablet; Refills: 0, Product Selection Permitted Signatures: Dispatcher [employer] Rey Gould MD MD rt Chelsey Nuñez RN RN nj1 Liliane Hernandez RN RN me1
--- NOTE | 2024-06-06 19:38 | ER ---
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 Also, abdominal pain as well as unable to keep food down, can keep very little fluids. Coronavirus screen: Vaccine status: Patient reports receiving the 2nd dose of the covid vaccine. Ebola Screen: Patient denies travel to an Ebola-affected area in the 21 days before illness onset. Initial Sepsis Screen: Does the patient meet any 2 criteria? No. Patient's initial sepsis screen is negative. Does the patient have a suspected source of infection? No. Patient's initial sepsis screen is negative. Risk Assessment: Do you want to hurt yourself or someone else? Patient reports no desire to harm self or others. Onset of symptoms was June 05, 2024. 17:09 Method Of Arrival: Ambulatory [facility] 17:09 Acuity: NANCY 3 nj1 PROJECT CONSULTANT: 20:22 LMP N/A - control method, Not vt1 Historical: - Allergies: 17:12 Adhesives; nj1 17:12 gluten intolerant; nj1 17:12 Lagevrio (EUA); nj1 17:12 molnupiravir; nj1 17:12 NSAIDS; nj1 17:12 PENICILLINS; nj1 17:12 Phenergan; nj1 17:12 Prednisone; nj1 - PMHx: 17:12 Ataxia; Atrial fibrillation; Cerebrovascular accident; Chronic pain; depressive nj1 disorder; Hypercholesterolemia; Hypothyroidism; Kidney stone; polyneuropathy; pseudotumor cerebri; TIA; Urinary incontinence; Brain lesion (frontal and eleazar) (Unknown); Degenerative disc disease (Unknown); Cervical spondylosis (Unknown); Rheumatoid arthritis; Osteoarthritis; Lordosis (cervical and lumbar); - PSHx: 17:12 Appendectomy; kidney stone surgery; Cardiac Ablation; [place] teeth extraction; nj1 Myringotomy and insertion of tympanic ventilation tube; - Immunization history:: Client reports receiving the 2nd dose of the Covid vaccine. - Infectious Disease History:: Denies. - Social history:: Smoking status: Patient/guardian denies using tobacco, the patient reports quitting approximately 4 years ago. - Family history:: not pertinent. Screenin:40 [facility] ED Fall Risk Assessment (Adult) History of falling in the last 3 months, me1 including since admission No falls in past 3 months (0 pts) Confusion or Disorientation No (0 pts) Intoxicated or Sedated No (0 pts) Impaired Gait No (0 pts) Mobility Assist Device Used No (0 pt) Altered Elimination No (0 pt) Score/Fall Risk Level 0 - 2 = Low Risk Maintained a safe environment, Provided non-skid footwear, Hourly rounding (assess needs \T\ fall precautionary measures) done. Abuse screen: Denies threats or abuse. Nutritional screening: No deficits noted. Tuberculosis screening: No symptoms or risk factors identified. 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 Also, abdominal pain as well as unable to keep food down, can keep very little fluids. Pain: Complains of pain in thoracic area Pain radiates to back of neck Pain currently is 8 out of 10 on a pain scale. Quality of pain is described as sharp, shooting, Pain began suddenly, Is continuous. Neuro: Level of Consciousness is awake, alert, obeys commands, Oriented to person, place, time, situation, Appropriate for age. Neuro: Reports headache. Cardiovascular: Patient's skin is warm and dry. Cardiovascular:. Respiratory: Airway is patent Respiratory effort is even, unlabored, Respiratory pattern is regular, symmetrical. GI: Reports nausea, vomiting. : No signs and/or symptoms were reported regarding the genitourinary system. EENT: No signs and/or symptoms were reported regarding the EENT system. Derm: Skin is intact, is healthy with good turgor, Skin is pink, warm \T\ dry. Musculoskeletal: Reports pain in thoracic area. 19:46 General: discharge delayed for completion of IV fluids. . me1 Vital Signs: 17:09 BP 124 / 73; Pulse 83; Resp 17; Temp 97.2(TE); Pulse Ox 98% ; Weight 127.01 kg; Height nj1 5 ft. 7 in. ; Pain 8/10; 18:00 BP 120 / 71; Pulse 75; Resp 17; Pulse Ox 98% on R/A; me1 19:00 BP 113 / 61; Pulse 79; Resp 16; Pulse Ox 98% ; me1 20:00 BP 123 / 82; Pulse 79; Resp 16; Temp 97.9; Pulse Ox 98% ; me1 20:21 Pain 4/10; me1 17:09 Body Mass Index 43.85 (127.01 kg, 170.18 cm) nj1 17:09 Pain Scale: Adult nj1 20:21 Pain Scale: Adult vt1 ED Course: 16:47 Patient arrived in ED. ra3 17:12 Triage completed. nj1 17:16 Arm band placed on left wrist. nj1 17:28 Rey Almanzar MD is Attending Physician. rt 17:28 Liliane Hernandez RN is Primary Nurse. me1 17:40 Patient has correct armband on for positive identification. Bed in low position. Call me1 light in reach. Side rails up X2. Provided Education on: POC. Verbalized understanding. . Client placed on continuous cardiac and pulse oximetry monitoring. NIBP monitoring applied. Pulse ox on. NIBP on. 18:04 CBC with Diff Sent. me1 18:04 CMP Sent. me1 18:04 Lipase Sent. me1 19:04 CT Abd/Pelvis - IV Contrast Only In Process Unspecified. EDMS 20:22 IV discontinued, intact, bleeding controlled, No redness/swelling at site. Pressure me1 dressing applied. 20:23 No provider procedures requiring assistance completed. me1 Administered Medications: 18:12 Drug: NS 0.9% IV 1000 ml IV at 1 bolus Per protocol; 1000 mL bolus Route: IV; Rate: 1 me1 bolus; Site: left antecubital; 20:24 Follow up: Response: No adverse reaction; IV Status: Completed infusion me1 18:12 Drug: morphine IVP or IV 4 mg IVP once over 4 mins Route: IVP; Infused Over: 4 mins; me1 Site: left antecubital; 19:38 Follow up: Response: No adverse reaction; Pain is decreased me1 18:12 Drug: Ondansetron IVP 4 mg IVP once; over 2 minutes Route: IVP; Site: left antecubital; me1 19:38 Follow up: Response: No adverse reaction; Nausea is decreased me1 19:44 Drug: morphine IVP or IV 4 mg IVP once over 4 mins Route: IVP; Infused Over: 4 mins; me1 Site: left antecubital; 20:21 Follow up: Pain 4/10 Adult; Response: No adverse reaction; Pain is decreased me1 19:44 Drug: Ondansetron IVP 4 mg IVP once; over 2 minutes Route: IVP; Site: left antecubital; me1 20:21 Follow up: Response: No adverse reaction me1 Medication: 17:40 VIS not applicable for this client. me1 Outcome: 19:38 Discharge ordered by MD. rt 20:22 Discharged to home ambulatory, with aid me1 20:22 Condition: stable 20:22 Discharge instructions given to patient, Instructed on discharge instructions, follow up and referral plans. medication usage, Demonstrated understanding of instructions, follow-up care, medications, Prescriptions given X 2, 20:23 Patient left the ED. me1 Signatures: Dispatcher [employer] EDMS Rey Almanzar MD MD rt Chelsey Nuñez RN RN nj1 Liliane Hernandez RN RN me1 Marissa Rain ra3 Corrections: (The following items were deleted from the chart) 17:40 17:09 Chief complaint: Patient states: Upper back swelling for months (nerve root me1 tumor), worsen last night, causing bad headaches, dizziness and it is very painful. Also, abdominal pain as well as unable to keep food down, can keep very little fluids. nj1 20:22 20:22 BP 123 / 82; Pulse 79bpm; Resp 16bpm; Pulse Ox 98%; Temp 97.9F; me1 me1
[2024-06-06 23:29] VITALS: O2SAT 98
[2024-06-06 23:42] VITALS: BP 123/82; TEMP 97.9
== END 2024-06-06 20:23 | disposition home or self-care (01) ==
LOC: ER 16:45
DX: R10.12 Left upper quadrant pain (principal); R11.2 Nausea with vomiting, unspecified
CPT/HCPCS: 96361; 85025; 36415; 83690; 80053; 74177; 96375; 96374; 99284; Q9967; J2405 ×2; J7030

== ENCOUNTER 2024-06-08 08:03 | Emergency (ER) | payer OTHER ==
[2024-06-08] MEDS ORDERED: NA CHLORIDE 0.9% 1,000 ML ONE (08:29)
[2024-06-08 08:45] LABS: Absolute Eosinophils 0.2 K/uL (0-0.5); Absolute Monocytes 0.8 K/uL (0.1-1.3); Absolute Neutrophil 9.1 K/uL (1.8-8.0); Basophils % 0.4 % (0-1.3); Eosinophils % 1.3 % (0-4.4); Hematocrit 35.5 % (36.0-45.0); Lymphocytes % 16.1 % (15.3-44.8); MCH 33.2 pg (27.0-35.0); MCHC 33.9 g/dL (32.0-36.0); MCV 97.8 fL (80-100); Monocytes % 6.9 % (3.3-12.3); Neutrophils % 75.3 % (41.7-73.7); Nucleated Red Blood Cells % 0.1 % (0-0); Platelets 264 thou/uL (152-406); RBC Red Blood Cell Count 3.63 M/uL (3.86-4.86); Red Cell Distribution Width 14.5 % (12.1-15.2)
--- NOTE | 2024-06-08 08:47 | RAD REPORT ---
EXAM DESCRIPTION: CT - Abdomen Pelvis W Contrast - 06/08/2024 8:34 am CLINICAL HISTORY: ABD PAIN COMPARISON: Abdomen Pelvis W Contrast dated 06/06/2024; Abdomen Pelvis W Contrast dated 06/03/2024; Abdomen Pelvis W Contrast dated 04/04/2024; Abdomen Pelvis W Contrast dated 12/14/2023 TECHNIQUE: Thin cut axial CT imaging of the abdomen and pelvis was performed following intravenous a dministration of 100 mL Isovue 300. Multiplanar reformats were generated and reviewed. All CT scans are performed using dose optimization technique as appropriate and may include automated exposure control or mA/KV adjustment according to patient size. FINDINGS: Trace layering bilateral pleural effusions more so on the right. The liver, spleen, adrenal glands, and pancreas show no suspicious findings. Gallbladder and biliary tree are also without suspicious finding. Symmetric renal function is seen with no hydronephrosis or suspicious renal mass. No dilated bowel loops or bowel wall thickening. Anastomotic suture line along the cecum may relate t o prior appendicectomy. No free air, free fluid or inflammatory stranding. No hernia, mass or bulky l ymphadenopathy. The urinary bladder is without significant finding. No suspicious bony findings. IMPRESSION: Trace bilateral layering pleural effusions. No acute intra-abdominal process.
[2024-06-08 08:59] LABS: Albumin 3.6 g/dL (3.4-5.0); Anion Gap 7.4 mEq/L (5.0-15.0); Bilirubin Total 0.3 mg/dL (0.2-1.0); Globulin 3.5 g/dL (2.3-3.5); Potassium 3.4 mEq/L (3.5-5.1); Protein, Total 7.1 g/dL (6.4-8.2)
[2024-06-08 09:16] LABS: Specific Gravity 1.013 (1.005-1.030)
[2024-06-08 09:25] LABS: Specific Gravity 1.013 (1.005-1.030); Sqamous Epithelial <5 /HPF (None Seen); Urine Bacteria <20 /HPF (<20); Urine Bilirubin NEGATIVE (Negative); Urine Blood Negative (Negative); Urine Clarity Clear (Clear); Urine Color Colorless (Yellow); Urine Culture Reflex Order NOT NEEDED; Urine Glucose NEGATIVE (Negative); Urine Ketones NEGATIVE (Negative); Urine Microscopic Reflex YN ORDER UMIC; Urine Mucus Slight /HPF (None Seen); Urine Nitrite NEGATIVE (Negative); Urine Protein NEGATIVE (Negative); Urine RBC None Seen /HPF (None Seen); Urine Urobilinogen Normal (Normal); Urine WBC <5 /HPF (<5); Urine pH 7.5 (5.0-7.0)
--- NOTE | 2024-06-08 09:33 | ER ---
Nurse's Notes [facility] Name: Erica Tucker Age: 34 yrs Sex: Female : 1990 Arrival Date: 06/08/2024 Time: 08:03 Bed 4 Private MD: Diagnosis: Abdominal pain, Generalized Presentation: 06/08 08:13 Chief complaint: Patient states: Upper abdominal pain continues since last visit here. ll1 Coronavirus screen: Client denies travel out of the [place] in the last 14 days. diarrhea, nausea, Client presents with at least one sign or symptom that may indicate coronavirus-19. Standard/surgical mask placed on the client. Ebola Screen: Patient denies travel to an Ebola-affected area in the 21 days before illness onset. Initial Sepsis Screen: Does the patient meet any 2 criteria? No. Patient's initial sepsis screen is negative. Does the patient have a suspected source of infection? No. Patient's initial sepsis screen is negative. Risk Assessment: Do you want to hurt yourself or someone else? Patient reports no desire to harm self or others. 08:13 Method Of Arrival: Ambulatory [facility] 08:13 Acuity: NANCY 3 ll1 08:16 Onset of symptoms was June 06, 2024. 1 Triage Assessment: 08:14 General: Appears uncomfortable, Behavior is calm, cooperative, appropriate for age. ll1 Pain: Complains of pain in upper abdomen. Neuro: No deficits noted. Cardiovascular: No deficits noted. GI: Reports upper abdominal pain, diarrhea, nausea. Historical: - Allergies: 08:11 Adhesives; ll1 08:11 gluten intolerant; ll1 08:11 Lagevrio (EUA); ll1 08:11 molnupiravir; ll1 08:11 NSAIDS; ll1 08:11 PENICILLINS; ll1 08:11 Phenergan; ll1 08:11 Prednisone; ll1 08:11 Promethazine; ll1 - PMHx: 08:11 Chronic pain; Degenerative disc disease (Unknown); Brain lesion (frontal and eleazar) ll1 (Unknown); TIA; Cervical Spondylosis (Unknown); Ataxia; osteoarthritis; Lordosis (cervical and lumbar); Rheumatoid Arthritis; Atrial fibrillation; polyneuropathy; Cerebrovascular accident; Urinary incontinence; Hypothyroidism; depressive disorder; pseudotumor cerebri; Hypercholesterolemia; Kidney stone; - PSHx: 08:11 Appendectomy; Cardiac Ablation; kidney stone surgery; Myringotomy and insertion of ll1 tympanic ventilation tube; [place] teeth extraction; - Immunization history:: Adult Immunizations up to date. - Infectious Disease History:: Denies. - Social history:: Smoking status: Patient denies any tobacco usage or history of. Screenin:18 [facility] ED Fall Risk Assessment (Adult) History of falling in the last 3 months, bp including since admission No falls in past 3 months (0 pts) Confusion or Disorientation No (0 pts) Intoxicated or Sedated No (0 pts) Impaired Gait No (0 pts) Mobility Assist Device Used No (0 pt) Altered Elimination No (0 pt) Score/Fall Risk Level 0 - 2 = Low Risk Oriented to surroundings. Abuse screen: Denies threats or abuse. Denies injuries from another. Nutritional screening: No deficits noted. Tuberculosis screening: No symptoms or risk factors identified. Assessment: 08:15 General: Appears in no apparent distress. obese, Behavior is cooperative, appropriate bp for age, anxious. Pain: Complains of pain in left lower quadrant and left upper quadrant. GI: Bowel sounds present X 4 quads. Abd is soft X 4 quads. 08:35 General: Appears comfortable, Behavior is calm, cooperative. Pain: Complains of pain in aa5 left upper quadrant Pain currently is 8 out of 10 on a pain scale. Quality of pain is described as sharp, Pain began 2-3 days ago. Is continuous. Neuro: Level of Consciousness is awake, alert, obeys commands, Oriented to person, place, time, situation. Cardiovascular: Patient's skin is warm and dry. Respiratory: Airway is patent Respiratory effort is even, unlabored, Respiratory pattern is regular, symmetrical. GI: Abdomen is obese, Bowel sounds present X 4 quads. Abd is soft X 4 quads Reports nausea, Patient currently denies diarrhea, vomiting. : No signs and/or symptoms were reported regarding the genitourinary system. EENT: No signs and/or symptoms were reported regarding the EENT system. Derm: Skin is pink, warm \T\ dry. Musculoskeletal: Pt is ambulatory with cane. 09:17 Reassessment: Patient appears in no apparent distress at this time. Patient is alert, bp oriented x 3, equal unlabored respirations, skin warm/dry/pink. Vital Signs: 08:13 BP 129 / 71; Pulse 73; Resp 17; Temp 97.6; Pulse Ox 98% on R/A; Weight 127.01 kg; ll1 Height 5 ft. 7 in. ; Pain 8/10; 09:17 BP 130 / 91; Pulse 61; Resp 16; Pulse Ox 100% ; bp 08:13 Body Mass Index 43.85 (127.01 kg, 170.18 cm) ll1 08:13 Pain Scale: Adult ll1 ED Course: 08:06 Patient arrived in ED. ra3 08:09 [facility] kb 08:09 Vega Monterroso MD is Attending Physician. kb 08:14 Triage completed. ll1 08:14 Arm band placed on Patient placed in an exam room, on a stretcher. ll1 08:27 Clair Quiles, RN is Primary Nurse. aa5 08:35 Inserted saline lock: 22 gauge in left antecubital area, using aseptic technique. Blood aa5 collected. Flushed with 10 mL NS. 08:36 CT Abd/Pelvis - IV Contrast Only In Process Unspecified. EDMS 09:18 Patient has correct armband on for positive identification. bp 09:30 No provider procedures requiring assistance completed. aa5 09:43 IV discontinued, intact, bleeding controlled, No redness/swelling at site. Pressure bp dressing applied. Administered Medications: 08:43 Drug: NS 0.9% IV 1000 ml IV at 1 bolus Per protocol; 1000 mL bolus Route: IV; Rate: 1 aa5 bolus; Site: left antecubital; 09:44 Follow up: IV Status: Completed infusion; IV Intake: 1000ml bp 08:43 Drug: Droperidol IVP 1.25 mg IVP once Route: IVP; Site: left antecubital; aa5 09:44 Follow up: Response: No adverse reaction bp Medication: 09:30 VIS not applicable for this client. aa5 Intake: 09:44 IV: 1000ml; Total: 1000ml. bp Outcome: 09:33 Discharge ordered by . kb 09:43 Discharged to home ambulatory, bp 09:43 Condition: stable 09:43 Discharge instructions given to patient, Instructed on discharge instructions, follow up and referral plans. Demonstrated understanding of instructions, follow-up care, 09:44 Patient left the ED. bp Signatures: Dispatcher [employer] EDMS Jessica Amado, MEDICAL LABORATORY MANAGER-C MEDICAL LABORATORY MANAGER-Ckb Clair Quiles RN RN aa5 Praveen Harrison RN RN bp Umberto Armendariz RN RN ll1 Marissa Rain ra3 Corrections: (The following items were deleted from the chart) 08:17 08:13 Resp 17bpm; ll1 ll1 09:28 08:45 Inserted saline lock: 20 gauge in left antecubital area, using aseptic technique. aa5 Blood collected. Flushed with 10 mL NS bp 09:28 08:45 Inserted saline lock: 22 gauge in left antecubital area, using aseptic technique. aa5 Blood collected. Flushed with 10 mL NS aa5
--- NOTE | 2024-06-08 09:33 | EDPHYS ---
Physician Documentation [facility] Name: Erica Tucker Age: 34 yrs Sex: Female : 1990 Arrival Date: 06/08/2024 Time: 08:03 Bed 4 Private MD: ED Physician Vega Monterroso HPI: 06/08 08:50 This 34 yrs old Female presents to ER via Ambulatory with complaints of Abdominal Pain. kb 08:50 Pt is a 34 year old female who presents for LUQ pain and diarrhea. States she was kb recently seen for same pain, but with nausea and vomiting. She is no longer vomiting, but diarrhea has started and the pain has gotten more severe. Reports pain is worse with deep breath, palpation. . Historical: - Allergies: 08:11 Adhesives; ll1 08:11 gluten intolerant; ll1 08:11 Lagevrio (EUA); ll1 08:11 molnupiravir; ll1 08:11 NSAIDS; ll1 08:11 PENICILLINS; ll1 08:11 Phenergan; ll1 08:11 Prednisone; ll1 08:11 Promethazine; ll1 - PMHx: 08:11 Chronic pain; Degenerative disc disease (Unknown); Brain lesion (frontal and eleazar) ll1 (Unknown); TIA; Cervical Spondylosis (Unknown); Ataxia; osteoarthritis; Lordosis (cervical and lumbar); Rheumatoid Arthritis; Atrial fibrillation; polyneuropathy; Cerebrovascular accident; Urinary incontinence; Hypothyroidism; depressive disorder; pseudotumor cerebri; Hypercholesterolemia; Kidney stone; - PSHx: 08:11 Appendectomy; Cardiac Ablation; kidney stone surgery; Myringotomy and insertion of ll1 tympanic ventilation tube; [place] teeth extraction; - Immunization history:: Adult Immunizations up to date. - Infectious Disease History:: Denies. - Social history:: Smoking status: Patient denies any tobacco usage or history of. ROS: 08:47 Constitutional: As per HPI kb Exam: 08:47 Constitutional: This is a well developed, well nourished patient who is awake, alert, kb and in no acute distress. Head/Face: Normocephalic, atraumatic. ENT: Moist Mucous membranes Cardiovascular: Regular rate Respiratory: Respirations even and unlabored. No increased work of breathing. Talking in full sentences Skin: Warm, dry with normal turgor. Normal color. MS/ Extremity: Pulses equal, no cyanosis. Neurovascular intact. Full, normal range of motion. Neuro: Awake and alert, GCS 15, oriented to person, place, time, and situation. Moves all extremities. Normal gait. 08:47 Abdomen/GI: Inspection: abdomen appears normal, Bowel sounds: normal, Palpation: soft, in all quadrants, moderate abdominal tenderness, in the left upper quadrant and left lower quadrant, Vital Signs: 08:13 BP 129 / 71; Pulse 73; Resp 17; Temp 97.6; Pulse Ox 98% on R/A; Weight 127.01 kg; ll1 Height 5 ft. 7 in. ; Pain 8/10; 09:17 BP 130 / 91; Pulse 61; Resp 16; Pulse Ox 100% ; bp 08:13 Body Mass Index 43.85 (127.01 kg, 170.18 cm) ll1 08:13 Pain Scale: Adult ll1 MDM: 08:09 Patient medically screened. kb 08:50 Data reviewed: vital signs, nurses notes. kb 09:33 Differential diagnosis: diverticulitis, non-specific abd pain, pancreatitis. kb Counseling: I had a detailed discussion with the patient and/or guardian regarding the historical points, exam findings, and any diagnostic results supporting the discharge/admit diagnosis, lab results, radiology results, the need for outpatient follow up, a family practitioner, to return to the emergency department if symptoms worsen or persist or if there are any questions or concerns that arise at home. 09:51 ED course: Patient is a 34-year-old female who presents with left abdominal pain and kb diarrhea. On exam patient has moderate tenderness to left upper and lower quadrants, otherwise well-appearing, afebrile. Serum labs and abdominal CT completed and reviewed. Patient educated on all results and recommended follow-up with GI as planned. Patient in agreement with outpatient follow-up. Stable for discharge. 06/08 08:15 Order name: CBC with Diff; Complete Time: 08:47 kb 06/08 08:15 Order name: CMP; Complete Time: 09:00 kb 06/08 08:15 Order name: Lipase; Complete Time: 09:00 kb 06/08 08:15 Order name: Test, Urine; Complete Time: 09:27 kb 06/08 08:15 Order name: Urinalysis w/ reflexes; Complete Time: 09:27 kb 06/08 08:16 Order name: CT Abd/Pelvis - IV Contrast Only; Complete Time: 08:51 kb 06/08 08:15 Order name: IV Saline Lock; Complete Time: 08:43 kb 06/08 08:15 Order name: Labs collected and sent; Complete Time: :43 kb Administered Medications: 08:43 Drug: NS 0.9% IV 1000 ml IV at 1 bolus Per protocol; 1000 mL bolus Route: IV; Rate: 1 aa5 bolus; Site: left antecubital; 09:44 Follow up: IV Status: Completed infusion; IV Intake: 1000ml bp 08:43 Drug: Droperidol IVP 1.25 mg IVP once Route: IVP; Site: left antecubital; aa5 09:44 Follow up: Response: No adverse reaction bp Disposition Summary: 06/08/24 09:33 Discharge Ordered Notes: Location: Home kb Condition: Stable kb Diagnosis - Abdominal pain, Generalized kb Followup: kb - With: Emergency Department - When: As needed - Reason: Worsening of condition Followup: kb - With: Private Physician - When: 2 - 3 days - Reason: Recheck today's complaints, Continuance of care, Re-evaluation by your physician Discharge Instructions: - Discharge Summary Sheet kb - Abdominal Pain, Adult, [id number] kb Forms: - Medication Reconciliation Form kb - Antibiotic Education kb - Prescription Opioid Use kb - Patient Portal Instructions kb - Leadership Thank You Letter kb Signatures: Dispatcher [employer] Jessica Wilde FNP-C TRUCK HEADLIGHT ASSEMBLER-Clair Mario RN RN aa5 Praveen Harrison RN RN Umberto Penaloza RN RN ll1
[2024-06-08 10:48] VITALS: TEMP 97.6
[2024-06-08 10:49] VITALS: BP 130/91; O2SAT 100
== END 2024-06-08 09:44 | disposition home or self-care (01) ==
LOC: ER 08:03
DX: R10.84 Generalized abdominal pain (principal); R19.7 Diarrhea, unspecified
CPT/HCPCS: 96361; 85025; 81001; 36415; 81025; 83690; 80053; 74177; 96374; 99284; Q9967; J7030

== ENCOUNTER 2024-07-27 22:55 | Emergency (ER) | payer OTHER ==
[2024-07-27] MEDS ORDERED: MORPHINE 4 MG/ML SYR ONE (23:40)
[2024-07-27] MEDS ORDERED: ONDANSETRON 4 MG (ODT) TAB ONE (23:40)
--- NOTE | 2024-07-28 00:16 | RAD REPORT ---
EXAM DESCRIPTION: Head C Spine Mpr Wo Con CLINICAL HISTORY: 34 years Female, PAIN TECHNIQUE: Helical CT axial images are obtained of the brain and cervical spine without IV contrast. Multiplanar reconstruction. This exam was performed according to our departmental dose-optimization program, which includes automated exposure control, adjustment of the mA and/or kV according to patie nt size and/or use of iterative reconstruction technique. COMPARISON: CT brain 02/03/2024 FINDINGS: BRAIN: BRAIN: No infarcts. No parenchymal hemorrhage, intra-axial mass, mass effect, or midline shift. No ab normal extra-axial fluid collections. VENTRICLES: Ventricles are normal in size and configuration. No hydrocephalus. CALVARIUM: Bone windows show no skull fracture or calvarial lesions.] PARANASAL SINUSES AND MASTOIDS: Clear paranasal sinuses. Mastoid air cells are clear. CERVICAL SPINE: VERTEBRA: There is straightening of the cervical spine. No acute fracture or subluxation. Cervical vertebra are normal in height. Craniocervical junction is intact. Normal vertebral body morphology. DISCS: Intervertebral discs are well-preserved. LEVELS: From the C2-C3 through the C7-T1 levels, no canal or foraminal stenosis. SOFT TISSUES: Paravertebral soft tissues are unremarkable. IMPRESSION: 1. No acute intracranial disease. 2. Straightening of cervical spine. Otherwise negative examination. Electronically signed by: Jayson Bowers MD 07/28/2024 12:07 AM CDT N Due to temporary technical issues with the PACS/Ecoc[employer] reporting system, reports are being jesus d by the in-house radiologist without review as a courtesy to ensure prompt reporting the interpreting radiologist is fully responsible for the content of the report. Transcribed Date/Time: 07/28/2024 12:16 AM
--- NOTE | 2024-07-28 00:25 | ER ---
Nurse's Notes [facility] Name: Erica Tucker Age: 34 yrs Sex: Female : 1990 Arrival Date: 07/27/2024 Time: 22:55 Bed 20 Private MD: Diagnosis: Chronic pain, not elsewhere classified-neck Presentation: 07/27 23:06 Chief complaint: Patient states: Pt states at approx 2100 tonight, she saw "blue" and tl4 started vomiting. 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 Pt also c/o increased pain with movement of the head, pressure on her brain, and visual changes. Coronavirus screen: At this time, the client does not indicate any symptoms associated with coronavirus-19. Ebola Screen: No symptoms or risks identified at this time. Initial Sepsis Screen: Does the patient meet any 2 criteria? No. Patient's initial sepsis screen is negative. Does the patient have a suspected source of infection? No. Patient's initial sepsis screen is negative. Risk Assessment: Do you want to hurt yourself or someone else? Patient reports no desire to harm self or others. Onset of symptoms was July 27, 2024 at 21:00. 23:06 Method Of Arrival: Ambulatory tl4 23:06 Acuity: NANCY 3 tl4 Triage Assessment: 23:14 General: Appears uncomfortable, Behavior is cooperative. Pain: Complains of pain in tl4 back and neck and head. EENT: No signs and/or symptoms were reported regarding the EENT system. Neuro: Reports headache numbness in right arm, left arm, right leg and left leg paresthesias in right arm, left arm, right leg and left leg saw "blue", improving. Cardiovascular: Capillary refill < 3 seconds Patient's skin is warm and dry. Respiratory: Airway is patent Respiratory effort is even, unlabored, Respiratory pattern is regular, symmetrical. GI: Reports upper abdominal pain, nausea. : No signs and/or symptoms were reported regarding the genitourinary system. Derm: No signs and/or symptoms reported regarding the dermatologic system. Musculoskeletal: No signs and/or symptoms reported regarding the musculoskeletal system. Historical: - Allergies: 23:12 Adhesives; tl4 23:12 gluten intolerant; tl4 23:12 Lagevrio (EUA); tl4 23:12 molnupiravir; tl4 23:12 NSAIDS; tl4 23:12 PENICILLINS; tl4 23:12 Phenergan; tl4 23:12 Promethazine; tl4 23:12 Prednisone; tl4 - PMHx: 23:12 Ataxia; Atrial fibrillation; Brain lesion (frontal and eleazar) (Unknown); Cerebrovascular tl4 accident; Cervical Spondylosis (Unknown); Chronic pain; Degenerative disc disease (Unknown); depressive disorder; Hypercholesterolemia; Hypothyroidism; Kidney stone; osteoarthritis; Lordosis (cervical and lumbar); polyneuropathy; Rheumatoid Arthritis; pseudotumor cerebri; TIA; Urinary incontinence; - PSHx: 23:12 Appendectomy; Cardiac Ablation; kidney stone surgery; Myringotomy and insertion of tl4 tympanic ventilation tube; [place] teeth extraction; - Immunization history:: Adult Immunizations unknown. - Infectious Disease History:: Denies. - Social history:: Smoking status: Patient denies any tobacco usage or history of. Screenin:20 [facility] ED Fall Risk Assessment (Adult) History of falling in the last 3 months, lg3 including since admission No falls in past 3 months (0 pts) Confusion or Disorientation No (0 pts) Intoxicated or Sedated No (0 pts) Impaired Gait No (0 pts) Mobility Assist Device Used No (0 pt) Altered Elimination No (0 pt) Score/Fall Risk Level 0 - 2 = Low Risk Oriented to surroundings, Maintained a safe environment, Educated pt \\T\\ family on fall prevention, incl call for assistance when getting out of bed, Assessed \\T\\ reinforced patient's understanding of fall precautions. Abuse screen: Denies threats or abuse. Denies injuries from another. Nutritional screening: No deficits noted. Tuberculosis screening: No symptoms or risk factors identified. Assessment: 23:20 General: Appears in no apparent distress. comfortable, Behavior is calm, cooperative. lg3 Pain: Complains of pain in head. Neuro: No deficits noted. Root Agitation-Sedation Scale (RASS): 0 - Alert and Calm Level of Consciousness is awake, alert, obeys commands, Oriented to person, place, time, situation. Cardiovascular: No deficits noted. Denies chest pain, shortness of breath, Capillary refill < 3 seconds Clubbing of nail beds is absent JVD is absent Patient's skin is warm and dry. Respiratory: No deficits noted. Airway is patent Respiratory effort is even, unlabored, Respiratory pattern is regular, symmetrical. GI: No deficits noted. No signs and/or symptoms were reported involving the gastrointestinal system. : No deficits noted. No signs and/or symptoms were reported regarding the genitourinary system. EENT: No deficits noted. Derm: No deficits noted. No signs and/or symptoms reported regarding the dermatologic system. Skin is intact, is healthy with good turgor, Skin is dry, Skin is normal, Skin temperature is warm. Musculoskeletal: No deficits noted. Circulation, motion, and sensation intact. Range of motion: intact in all extremities. 07/28 00:39 Reassessment: Patient appears in no apparent distress at this time. No changes from lg3 previously documented assessment. Patient and/or family updated on plan of care and expected duration. Pain level reassessed. Patient is alert, oriented x 3, equal unlabored respirations, skin warm/dry/pink. Vital Signs: 07/27 23:06 BP 123 / 64; Pulse 84; Resp 20; Temp 98.8(O); Pulse Ox 100% on R/A; Weight 131.54 kg; tl4 Height 5 ft. 7 in. ; 07/28 00:39 BP 127 / 69; Pulse 81; Resp 19 S; Temp 98.4(O); Pulse Ox 100% on R/A; lg3 07/27 23:06 Body Mass Index 45.42 (131.54 kg, 170.18 cm) tl4 ED Course: 07/27 22:57 Patient arrived in ED. mr 22:58 Jessica Amado FNP-C is [facility]. kb 22:58 Santos Batista MD is Attending Physician. kb 23:12 Triage completed. tl4 23:16 Arm band placed on right wrist. tl4 23:20 Sary Hilton RN is Primary Nurse. lg3 23:20 Patient has correct armband on for positive identification. Bed in low position. Call lg3 light in reach. Side rails up X 1. Client placed on continuous cardiac and pulse oximetry monitoring. NIBP monitoring applied. Door closed. Noise minimized. Warm blanket given. Pillow given. 23:31 CT Head C Spine In Process Unspecified. EDMS 07/28 00:39 No provider procedures requiring assistance completed. Patient did not have IV access lg3 during this emergency room visit. Administered Medications: 07/27 23:45 Drug: Ondansetron PO 4 mg PO once Route: PO; lg3 07/28 00:40 Follow up: Response: No adverse reaction lg3 07/27 23:45 Drug: morphine IM 4 mg IM once Route: IM; Site: right deltoid; lg3 07/28 00:40 Follow up: Response: No adverse reaction; Marked relief of symptoms; Pain is decreased lg3 Medication: 07/27 23:20 VIS not applicable for this client. lg3 Outcome: 07/28 00:24 Discharge ordered by . shannon 00:39 Discharged to home ambulatory, lg3 00:39 Condition: stable 00:39 Discharge instructions given to patient, Instructed on discharge instructions, follow up and referral plans. Demonstrated understanding of instructions, follow-up care, 00:40 Patient left the ED. lg3 Signatures: Dispatcher [employer] EDMS Jessica Amado, CHECK TOTALER-C CHECK TOTALER-CkNegar Serrato, Reg Reg mr Sary Hilton, RN RN lg3 Rachid Henry, RN RN tl4 Corrections: (The following items were deleted from the chart) 07/27 23:14 23:06 Pulse 84bpm; Resp 20bpm; Pulse Ox 100% RA; Temp 98.8F Oral; 131.54 kg; Height 5 tl4 ft. 7 in.; BMI: 45.4; tl4
--- NOTE | 2024-07-28 00:25 | EDPHYS ---
Physician Documentation [facility] Name: Erica Tucker Age: 34 yrs Sex: Female : 1990 Arrival Date: 07/27/2024 Time: 22:55 Bed 20 Private MD: ED Physician Santos Batista HPI: 07/27 23:38 This 34 yrs old Female presents to ER via Ambulatory with complaints of Neck pain. kb 23:38 Pt is a 34 year old female who presents for vomiting that started at 2100 tonight. kb states she has a tumor on her spine that she is waiting for her neurologist in [place] and the [facility] to come up with a plan of care for. States she has had pressure on the brain, increased pain with movement of head and visual changes over the last few months because the tumor has been growing. . Historical: - Allergies: 23:12 Adhesives; tl4 23:12 gluten intolerant; tl4 23:12 Lagevrio (EUA); tl4 23:12 molnupiravir; tl4 23:12 NSAIDS; tl4 23:12 PENICILLINS; tl4 23:12 Phenergan; tl4 23:12 Promethazine; tl4 23:12 Prednisone; tl4 - PMHx: 23:12 Ataxia; Atrial fibrillation; Brain lesion (frontal and eleazar) (Unknown); Cerebrovascular tl4 accident; Cervical Spondylosis (Unknown); Chronic pain; Degenerative disc disease (Unknown); depressive disorder; Hypercholesterolemia; Hypothyroidism; Kidney stone; osteoarthritis; Lordosis (cervical and lumbar); polyneuropathy; Rheumatoid Arthritis; pseudotumor cerebri; TIA; Urinary incontinence; - PSHx: 23:12 Appendectomy; Cardiac Ablation; kidney stone surgery; Myringotomy and insertion of tl4 tympanic ventilation tube; [place] teeth extraction; - Immunization history:: Adult Immunizations unknown. - Infectious Disease History:: Denies. - Social history:: Smoking status: Patient denies any tobacco usage or history of. ROS: 23:37 Constitutional: As per HPI kb Exam: 23:37 Constitutional: This is a well developed, well nourished patient who is awake, alert, kb and in no acute distress. Head/Face: Normocephalic, atraumatic. ENT: Moist Mucous membranes Cardiovascular: Regular rate Respiratory: Respirations even and unlabored. No increased work of breathing. Talking in full sentences Abdomen/GI: Soft, non-tender. No distention Skin: Warm, dry with normal turgor. Normal color. MS/ Extremity: Pulses equal, no cyanosis. Neurovascular intact. Full, normal range of motion. 23:37 Neuro: Exam negative for acute changes, Orientation: to person, place, time \T\ situation. Mentation: is normal, able to follow commands, Memory: is normal, Motor: moves all fours, Vital Signs: 23:06 BP 123 / 64; Pulse 84; Resp 20; Temp 98.8(O); Pulse Ox 100% on R/A; Weight 131.54 kg; tl4 Height 5 ft. 7 in. ; 07/28 00:39 BP 127 / 69; Pulse 81; Resp 19 S; Temp 98.4(O); Pulse Ox 100% on R/A; lg3 07/27 23:06 Body Mass Index 45.42 (131.54 kg, 170.18 cm) tl4 MDM: 07/27 22:58 Patient medically screened. kb 07/28 00:23 Differential diagnosis: chronic pain, tumor, malignancy. Data reviewed: vital signs, kb nurses notes. Counseling: I had a detailed discussion with the patient and/or guardian regarding the historical points, exam findings, and any diagnostic results supporting the discharge/admit diagnosis, radiology results, the need for outpatient follow up, a neurologist, to return to the emergency department if symptoms worsen or persist or if there are any questions or concerns that arise at home. ED course: Pt will call neurologist tomorrow to see if she can get an earlier appt. Pt is under the care of pain management for this pain already.. 07/27 23:10 Order name: CT Head C Spine kb Administered Medications: 07/27 23:45 Drug: Ondansetron PO 4 mg PO once Route: PO; lg3 07/28 00:40 Follow up: Response: No adverse reaction lg3 07/27 23:45 Drug: morphine IM 4 mg IM once Route: IM; Site: right deltoid; lg3 07/28 00:40 Follow up: Response: No adverse reaction; Marked relief of symptoms; Pain is decreased lg3 Disposition Summary: 07/28/24 00:24 Discharge Ordered Notes: Location: Home kb Condition: Stable kb Diagnosis - Chronic pain, not elsewhere classified - neck kb Followup: kb - With: Emergency Department - When: As needed - Reason: Worsening of condition Followup: kb - With: Private Physician - When: 2 - 3 days - Reason: Recheck today's complaints, Continuance of care, Re-evaluation by your physician Discharge Instructions: - Discharge Summary Sheet kb - Chronic Pain, Adult kb Forms: - Medication Reconciliation Form kb - Antibiotic Education kb - Prescription Opioid Use kb - Patient Portal Instructions kb - Leadership Thank You Letter kb Signatures: Dispatcher [employer] EDJessica Park, NURSE EXAMINER-C NURSE EXAMINER-Sary Rodriguez RN RN lg3 Rachid Henry RN RN tl4 Corrections: (The following items were deleted from the chart) 07/27 23:40 23:38 Pt is a 34 year old female who presents for vomiting that started at 2100 kb tonight. 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 to come up with a plan of care for. States she has had pressure on the brain, . kb
[2024-07-28 00:50] VITALS: O2SAT 100
[2024-07-28 00:51] VITALS: BP 127/69; TEMP 98.4
== END 2024-07-28 00:40 | disposition home or self-care (01) ==
LOC: ER 22:55
DX: G89.29 Other chronic pain (principal)
CPT/HCPCS: 96372; 99284

== ENCOUNTER 2024-08-22 13:27 | Emergency (ER) | payer OTHER ==
[2024-08-22] MEDS ORDERED: NA CHLORIDE 0.9% 1,000 ML ONE (14:03)
[2024-08-22] MEDS ORDERED: ONDANSETRON 4 MG/2 ML VIAL ONE (14:03)
[2024-08-22] MEDS ORDERED: FAMOTIDINE 20 MG/2 ML VIAL IV ONE (14:03)
[2024-08-22 14:32] LABS: Absolute Eosinophils 0.1 K/uL (0-0.5); Absolute Lymphocytes (CBC) 2.1 K/uL (0.7-4.9); Absolute Monocytes 0.6 K/uL (0.1-1.3); Absolute Neutrophil 7.2 K/uL (1.8-8.0); Basophils % 0.5 % (0-1.3); Eosinophils % 1.3 % (0-4.4); Hematocrit 34.6 % (36.0-45.0); Hemoglobin 11.6 g/dL (12.0-15.0); Lymphocytes % 21.2 % (15.3-44.8); MCH 33.2 pg (27.0-35.0); MCHC 33.6 g/dL (32.0-36.0); MCV 98.7 fL (80-100); MPV 8.1 fL (7.6-11.3); Monocytes % 5.7 % (3.3-12.3); Neutrophils % 71.3 % (41.7-73.7); Platelets 248 thou/uL (152-406); RBC Red Blood Cell Count 3.51 M/uL (3.86-4.86)
[2024-08-22 14:33] LABS: Specific Gravity 1.011 (1.005-1.030)
[2024-08-22 14:34] LABS: Specific Gravity 1.011 (1.005-1.030); Urine Bacteria >50 /HPF (<20); Urine Bilirubin NEGATIVE (Negative); Urine Blood Negative (Negative); Urine Clarity Extremely Turbid (Clear); Urine Color Colorless (Yellow); Urine Crystals Unidentified Few /HPF (None Seen); Urine Culture Reflex Order NOT NEEDED; Urine Glucose NEGATIVE (Negative); Urine Ketones NEGATIVE (Negative); Urine Microscopic Reflex YN ORDER UMIC; Urine Mucus Slight /HPF (None Seen); Urine Nitrite NEGATIVE (Negative); Urine Protein NEGATIVE (Negative); Urine RBC <5 /HPF (None Seen); Urine Urobilinogen Normal (Normal); Urine WBC <5 /HPF (<5); Urine Yeast (Budding) Occasional /HPF (None Seen); Urine pH 7.5 (5.0-7.0)
[2024-08-22] MEDS ORDERED: MORPHINE 4 MG/ML SYR ONE (14:34)
[2024-08-22 14:50] LABS: Albumin 3.5 g/dL (3.4-5.0); Albumin/Globulin Ratio 0.9 (1.1-1.8); Anion Gap 9.7 mEq/L (5.0-15.0); Bilirubin Total 0.3 mg/dL (0.2-1.0); Globulin 3.8 g/dL (2.3-3.5); Potassium 3.7 mEq/L (3.5-5.1); Protein, Total 7.3 g/dL (6.4-8.2)
[2024-08-22] MEDS ORDERED: HYDROMORPHONE HCL 1 MG/ML INJ ONE ×3 (15:18→16:43)
[2024-08-22] MEDS ORDERED: METRONIDAZOLE 500mg IVPB 500 MG/100 ML BAG IV ONE (15:39)
[2024-08-22] MEDS ORDERED: Ciprofloxacin 200mg IV 400 MG/200 ML IV.SOLN. IV ONE (15:39)
--- NOTE | 2024-08-22 16:12 | RAD REPORT ---
EXAMINATION: CT ABDOMEN AND PELVIS WITH CONTRAST CLINICAL INDICATION: Abdominal pain TECHNIQUE: CT abdomen and pelvis was performed, after the administration of 100 cc Isovue-300.. Sagit raymond and coronal reconstructions were obtained. One or more of the following dose reduction techniques were used: Automated exposure control, adjustment of the mA and kV according to patient si ze, and iterative reconstruction. Unless otherwise specified, incidental findings do not require dedicated imaging follow-up. [id number]. Oral contrast was not given which limits evaluation of bowel and appendix. COMPARISON: June 2024 FINDINGS: Liver, spleen, pancreas, and adrenals appear normal. Tiny bilateral renal calculi. No hydronephrosis. Tiny renal cysts No evidence of diverticulitis. Appendectomy. No adnexal mass Trace bilateral pleural effusions unchanged : IMPRESSION: No acute abnormality displayed
--- NOTE | 2024-08-22 16:15 | ER ---
Nurse's Notes [facility] Name: Erica Tucker Age: 34 yrs Sex: Female : 1990 Arrival Date: 08/22/2024 Time: 13:27 Bed 5 Private MD: Diagnosis: Abdominal tenderness;Left sided colitis with rectal bleeding;Obesity, unspecified Presentation: 08/22 13:43 Chief complaint: Patient states: has pain to left side of abdomen, hx of UC, is passing iw blood , started 3-4 days ago. Coronavirus screen: At this time, the client does not indicate any symptoms associated with coronavirus-19. Ebola Screen: No symptoms or risks identified at this time. Initial Sepsis Screen: Does the patient meet any 2 criteria? No. Patient's initial sepsis screen is negative. Does the patient have a suspected source of infection? No. Patient's initial sepsis screen is negative. Risk Assessment: Do you want to hurt yourself or someone else? Patient reports no desire to harm self or others. 13:43 Method Of Arrival: Ambulatory iw 13:43 Acuity: NANCY 3 iw 13:44 Onset of symptoms was August 18, 2024. iw Historical: - Allergies: 13:45 Adhesives; iw 13:45 Lagevrio (EUA); iw 13:45 PENICILLINS; iw 13:45 Phenergan; iw 13:45 Prednisone; iw 13:45 NSAIDS; iw 13:45 molnupiravir; iw 13:45 gluten intolerant; iw - PMHx: 13:45 Ataxia; Rheumatoid Arthritis; Atrial fibrillation; Cerebrovascular accident; iw Degenerative disc disease (Unknown); Urinary incontinence; Lordosis (cervical and lumbar); osteoarthritis; Brain lesion (frontal and eleazar) (Unknown); Cervical Spondylosis (Unknown); Chronic pain; depressive disorder; Hypothyroidism; Kidney stone; pseudotumor cerebri; polyneuropathy; Hypercholesterolemia; TIA; - PSHx: 13:45 Appendectomy; Cardiac Ablation; kidney stone surgery; Myringotomy and insertion of iw tympanic ventilation tube; [place] teeth extraction; - Family history:: not pertinent. Screenin:00 [facility] ED Fall Risk Assessment (Adult) History of falling in the last 3 months, aa5 including since admission No falls in past 3 months (0 pts) Confusion or Disorientation No (0 pts) Intoxicated or Sedated No (0 pts) Impaired Gait Yes (1 pt) Mobility Assist Device Used Yes (1 pt) Altered Elimination No (0 pt) Score/Fall Risk Level 0 - 2 = Low Risk Oriented to surroundings, Maintained a safe environment, Educated pt \T\ family on fall prevention, incl call for assistance when getting out of bed. Abuse screen: Denies threats or abuse. Nutritional screening: No deficits noted. Tuberculosis screening: No symptoms or risk factors identified. Assessment: 14:00 General: Appears comfortable, Behavior is calm, cooperative. Pain: Complains of pain in aa5 left lower quadrant Pain currently is 9 out of 10 on a pain scale. Quality of pain is described as dull, sharp, Pain began 3-4 days ago Is continuous. Neuro: Level of Consciousness is awake, alert, obeys commands, Oriented to person, place, time, situation. Cardiovascular: Patient's skin is warm and dry. Respiratory: Airway is patent Respiratory effort is even, unlabored, Respiratory pattern is regular, symmetrical. GI: Abdomen is round Bowel sounds present X 4 quads. Abd is soft X 4 quads Reports nausea, decreased appetite and reports blood in stool x 3-4 days ago Patient currently denies vomiting. : No signs and/or symptoms were reported regarding the genitourinary system. EENT: No signs and/or symptoms were reported regarding the EENT system. Derm: Skin is pink, warm \T\ dry. Musculoskeletal: Range of motion: intact in all extremities. 14:38 Reassessment: Patient is alert, oriented x 3, equal unlabored respirations, skin aa5 warm/dry/pink. 15:19 Reassessment: Patient is alert, oriented x 3, equal unlabored respirations, skin aa5 warm/dry/pink. Pt requesting pain medication, was notified. . 16:15 Reassessment: Patient is alert, oriented x 3, equal unlabored respirations, skin aa5 warm/dry/pink. 16:42 Reassessment: Patient is alert, oriented x 3, equal unlabored respirations, skin aa5 warm/dry/pink. Pt requesting pain medication, was notified. . 17:00 Reassessment: Pt requesting to speak to Dr. Sarkar before d/c home, aware. . aa5 17:20 Reassessment: Awaiting Cipro to complete before d/c home. . aa5 17:20 Reassessment: Patient is alert, oriented x 3, equal unlabored respirations, skin aa5 warm/dry/pink. 17:50 Reassessment: Pt waiting to speak to MD before d/c home. . aa5 17:50 Reassessment: Patient is alert, oriented x 3, equal unlabored respirations, skin aa5 warm/dry/pink. 17:55 Reassessment: MD at bedside speaking to patient . aa5 18:05 Reassessment: Patient is alert, oriented x 3, equal unlabored respirations, skin aa5 warm/dry/pink. Vital Signs: 13:43 BP 170 / 96; Pulse 109; Resp 18; Pulse Ox 99% on R/A; Weight 129.27 kg; Height 5 ft. 7 iw in. ; Pain 9/10; 16:15 BP 135 / 92; Pulse 90; Resp 18 S; Pulse Ox 98% on R/A; aa5 17:20 BP 139 / 92; Pulse 92; Resp 18 S; Pulse Ox 99% on R/A; aa5 13:43 Body Mass Index 44.64 (129.27 kg, 170.18 cm) iw 13:43 Pain Scale: Adult iw ED Course: 13:30 Patient arrived in ED. mr 13:34 Ajay Sarkar MD is Attending Physician. norbert 13:44 Triage completed. iw 13:46 Arm band placed on. iw 14:00 Patient has correct armband on for positive identification. Bed in low position. Call aa5 light in reach. Side rails up X 1. Pulse ox on. NIBP on. 14:02 Clair Quiles, RN is Primary Nurse. aa5 14:28 CBC with Diff Sent. em1 14:28 CMP Sent. em1 14:28 Lipase Sent. em1 14:28 Test, Urine Sent. em1 14:28 Urinalysis w/ reflexes Sent. em1 14:28 Initial lab(s) drawn, by me, sent to lab. Inserted saline lock: 20 gauge in right em1 forearm, using aseptic technique. Blood collected. Flushed with 10 mL NS. 15:57 CT Abd/Pelvis - IV Contrast Only In Process Unspecified. EDMS 16:14 Viet Patel MD is Referral Physician. norbert 18:05 No provider procedures requiring assistance completed. IV discontinued, intact, aa5 bleeding controlled, No redness/swelling at site. Pressure dressing applied. Administered Medications: 14:24 CANCELLED (Duplicate Order): ns 0.9% 1000 ml IV at 1000 ml once; to be given as a bolus aa5 over 60 minutes 14:35 Drug: Famotidine IVP 20 mg IVP once; dilute with 10 mL 0.9% NaCl; give over 2 minutes aa5 Route: IVP; Site: right forearm; 15:00 Follow up: Response: No adverse reaction aa5 14:35 Drug: Ondansetron IVP 4 mg IVP once; over 2 minutes Route: IVP; Site: right forearm; aa5 15:00 Follow up: Response: No adverse reaction aa5 14:35 Drug: NS 0.9% IV 1000 ml IV at 1 bolus Per protocol; to be given as a bolus over 60 aa5 minutes Route: IV; Rate: 1 bolus; Site: right forearm; 16:20 Follow up: IV Status: Completed infusion; IV Intake: 1000ml aa5 14:38 Drug: morphine IVP or IV 4 mg IVP once over 4 mins Route: IVP; Infused Over: 4 mins; aa5 Site: right forearm; 15:00 Follow up: Response: No adverse reaction aa5 15:23 Drug: HYDROmorphone IVP 1 mg IVP once Route: IVP; Site: right forearm; aa5 15:30 Follow up: Response: No adverse reaction aa5 16:20 Drug: metroNIDAZOLE IVPB 500 mg 100 ml IVPB at 200 ml/hr once over 30 mins Volume: 100 aa5 ml; Route: IVPB; Rate: 200 ml/hr; Infused Over: 30 mins; Site: right forearm; 16:50 Follow up: Response: No adverse reaction; IV Status: Completed infusion aa5 16:45 Drug: HYDROmorphone IVP 1 mg IVP once Route: IVP; Site: right forearm; aa5 16:50 Follow up: Response: No adverse reaction aa5 16:50 Drug: Ciprofloxacin IVPB 400 mg 200 ml IVPB once over 60 mins Volume: 200 ml; Route: aa5 IVPB; Infused Over: 60 mins; Site: right forearm; 17:00 Follow up: Response: No adverse reaction aa5 17:49 Follow up: Response: No adverse reaction; IV Status: Completed infusion aa5 Medication: 15:14 VIS not applicable for this client. aa5 Intake: 16:20 IV: 1000ml; Total: 1000ml. aa5 Outcome: 16:14 Discharge ordered by . norbert 18:05 Discharged to home ambulatory, with cane aa5 18:05 Condition: stable 18:05 Discharge instructions given to patient, Instructed on discharge instructions, follow up and referral plans. medication usage, Demonstrated understanding of instructions, follow-up care, medications, Prescriptions given X 4, 18:07 Patient left the ED. eb Signatures: Dispatcher [employer] EDMS Ajay Sarkar MD MD cha Rivera, Mary, Reg Reg mr Ignacia Lee, RN RN Torey Buck em1 Clair Quiles RN RN aa5 Karissa Piper Corrections: (The following items were deleted from the chart) 13:46 13:43 BP 170 / 96; Pulse 109bpm; Resp 18bpm; Pulse Ox 99% RA; iw iw
--- NOTE | 2024-08-22 16:15 | EDPHYS ---
Physician Documentation [facility] Name: Erica Tucker Age: 34 yrs Sex: Female : 1990 Arrival Date: 08/22/2024 Time: 13:27 Bed 5 Private MD: MALORIE Physician Ajay Sarkar HPI: 08/22 15:22 This 34 yrs old Female presents to ER via Ambulatory with complaints of norbert Abdominal Pain. 15:22 The patient presents with abdominal pain in the left upper quadrant, in the left lower norbert quadrant, abdominal distention in the left upper quadrant, in the left lower quadrant. Onset: The symptoms/episode began/occurred 2 day(s) ago. The patient presents to the emergency department with rectal bleeding, bright red blood with bowel movement. Abdominal pain: located in the left upper quadrant and left lower quadrant. Modifying factors: The symptoms are alleviated by nothing, the symptoms are aggravated by nothing. The symptoms do not radiate. Associated signs and symptoms: Pertinent positives: constipation. Modifying factors: The symptoms are alleviated by nothing. Historical: - Allergies: 13:45 Adhesives; iw 13:45 Lagevrio (EUA); iw 13:45 PENICILLINS; iw 13:45 Phenergan; iw 13:45 Prednisone; iw 13:45 NSAIDS; iw 13:45 molnupiravir; iw 13:45 gluten intolerant; iw - PMHx: 13:45 Ataxia; Rheumatoid Arthritis; Atrial fibrillation; Cerebrovascular accident; iw Degenerative disc disease (Unknown); Urinary incontinence; Lordosis (cervical and lumbar); osteoarthritis; Brain lesion (frontal and eleazar) (Unknown); Cervical Spondylosis (Unknown); Chronic pain; depressive disorder; Hypothyroidism; Kidney stone; pseudotumor cerebri; polyneuropathy; Hypercholesterolemia; TIA; - PSHx: 13:45 Appendectomy; Cardiac Ablation; kidney stone surgery; Myringotomy and insertion of iw tympanic ventilation tube; [employer] teeth extraction; - Family history:: not pertinent. ROS: 15:22 Constitutional: Negative for fever, chills, and weight loss, Eyes: Negative for injury, norbert pain, redness, and discharge, ENT: Negative for injury, pain, and discharge, Neck: Negative for injury, pain, and swelling, Cardiovascular: Negative for chest pain, palpitations, and edema, Respiratory: Negative for shortness of breath, cough, wheezing, and pleuritic chest pain, Back: Negative for injury and pain, : Negative for injury, bleeding, discharge, and swelling, MS/Extremity: Negative for injury and deformity, Skin: Negative for injury, rash, and discoloration, Neuro: Negative for headache, weakness, numbness, tingling, and seizure, Psych: Negative for depression, anxiety, suicide ideation, homicidal ideation, and hallucinations, Allergy/Immunology: Negative for hives, rash, and allergies, Endocrine: Negative for neck swelling, polydipsia, polyuria, polyphagia, and marked weight changes, Hematologic/Lymphatic: Negative for swollen nodes, abnormal bleeding, and unusual bruising, 15:22 Abdomen/GI: Positive for abdominal pain, of the left upper quadrant and left lower quadrant, Exam: 15:22 Constitutional: This is a well developed, well nourished patient who is awake, alert, norbert and in no acute distress. Head/Face: Normocephalic, atraumatic. Eyes: Pupils equal round and reactive to light, extra-ocular motions intact. Lids and lashes normal. Conjunctiva and sclera are non-icteric and not injected. Cornea within normal limits. Periorbital areas with no swelling, redness, or edema. ENT: Nares patent. No nasal discharge, no septal abnormalities noted. Tympanic membranes are normal and external auditory canals are clear. Oropharynx with no redness, swelling, or masses, exudates, or evidence of obstruction, uvula midline. Mucous membranes moist. Neck: Trachea midline, no thyromegaly or masses palpated, and no cervical lymphadenopathy. Supple, full range of motion without nuchal rigidity, or vertebral point tenderness. No Meningismus. Chest/axilla: Normal chest wall appearance and motion. Nontender with no deformity. No lesions are appreciated. Cardiovascular: Regular rate and rhythm with a normal S1 and S2. No gallops, murmurs, or rubs. Normal PMI, no JVD. No pulse deficits. Respiratory: Lungs have equal breath sounds bilaterally, clear to auscultation and percussion. No rales, rhonchi or wheezes noted. No increased work of breathing, no retractions or nasal flaring. Abdomen/GI: Soft, non-tender, with normal bowel sounds. No distension or tympany. No guarding or rebound. No evidence of tenderness throughout. Back: No spinal tenderness. No costovertebral tenderness. Full range of motion. Skin: Warm, dry with normal turgor. Normal color with no rashes, no lesions, and no evidence of cellulitis. MS/ Extremity: Pulses equal, no cyanosis. Neurovascular intact. Full, normal range of motion. Neuro: Awake and alert, GCS 15, oriented to person, place, time, and situation. Cranial nerves II-XII grossly intact. Motor strength 5/5 in all extremities. Sensory grossly intact. Cerebellar exam normal. Normal gait. Psych: Awake, alert, with orientation to person, place and time. Behavior, mood, and affect are within normal limits. 15:22 Abdomen/GI: Bowel sounds: normal, in all quadrants, Palpation: mild abdominal tenderness, moderate abdominal tenderness, in the left upper quadrant and left lower quadrant, Liver: no appreciated palpable abnormalities, Hernia: not appreciated, Vital Signs: 13:43 BP 170 / 96; Pulse 109; Resp 18; Pulse Ox 99% on R/A; Weight 129.27 kg; Height 5 ft. 7 iw in. ; Pain 9/10; 16:15 BP 135 / 92; Pulse 90; Resp 18 S; Pulse Ox 98% on R/A; aa5 17:20 BP 139 / 92; Pulse 92; Resp 18 S; Pulse Ox 99% on R/A; aa5 13:43 Body Mass Index 44.64 (129.27 kg, 170.18 cm) iw 13:43 Pain Scale: Adult iw MDM: 13:34 Medical Screening Exam initiated norbert 15:26 Differential diagnosis: gastritis, diverticulitis, hemorrhoids, bowel obstruction, norbert diverticulitis, gastritis, GI Bleed, Mesenteric ischemia or infarction, non-specific abd pain, pancreatitis, Peritonitis, urinary tract infection. Data reviewed: vital signs, nurses notes, lab test result(s), EKG, radiologic studies, CT scan. Consideration of Admission/Observation Patient was admitted/placed on observation. Escalation of care including admission/observation considered. I considered the following discharge prescriptions or medication management in the emergency department Medications were administered in the Emergency Department. See MAR. Independent interpretation of the following test(s) in the Emergency Department CT Scan: My interpretation is ct a/p. Test considered but Not performed: EKG: no ekg. Care significantly affected by the following chronic conditions: Obesity, ra, cva, a fib, ddd. 08/22 13:35 Order name: CBC with Diff; Complete Time: 15:20 [facility] 08/22 13:35 Order name: CMP; Complete Time: 15:20 [facility] 08/22 13:35 Order name: Lipase; Complete Time: 15:20 [facility] 08/22 13:35 Order name: Test, Urine; Complete Time: 15:20 [facility] 08/22 13:35 Order name: Urinalysis w/ reflexes; Complete Time: 15:20 [facility] 08/22 14:23 Order name: CT Abd/Pelvis - IV Contrast Only; Complete Time: 16:14 [facility] 08/22 13:35 Order name: IV Saline Lock; Complete Time: 14:28 [facility] 08/22 13:35 Order name: Labs collected and sent; Complete Time: 14:28 [facility] Administered Medications: 14:24 CANCELLED (Duplicate Order): ns 0.9% 1000 ml IV at 1000 ml once; to be given as a bolus aa5 over 60 minutes 14:35 Drug: Famotidine IVP 20 mg IVP once; dilute with 10 mL 0.9% NaCl; give over 2 minutes aa5 Route: IVP; Site: right forearm; 15:00 Follow up: Response: No adverse reaction aa5 14:35 Drug: Ondansetron IVP 4 mg IVP once; over 2 minutes Route: IVP; Site: right forearm; aa5 15:00 Follow up: Response: No adverse reaction aa5 14:35 Drug: NS 0.9% IV 1000 ml IV at 1 bolus Per protocol; to be given as a bolus over 60 aa5 minutes Route: IV; Rate: 1 bolus; Site: right forearm; 16:20 Follow up: IV Status: Completed infusion; IV Intake: 1000ml aa5 14:38 Drug: morphine IVP or IV 4 mg IVP once over 4 mins Route: IVP; Infused Over: 4 mins; aa5 Site: right forearm; 15:00 Follow up: Response: No adverse reaction aa5 15:23 Drug: HYDROmorphone IVP 1 mg IVP once Route: IVP; Site: right forearm; aa5 15:30 Follow up: Response: No adverse reaction aa5 16:20 Drug: metroNIDAZOLE IVPB 500 mg 100 ml IVPB at 200 ml/hr once over 30 mins Volume: 100 aa5 ml; Route: IVPB; Rate: 200 ml/hr; Infused Over: 30 mins; Site: right forearm; 16:50 Follow up: Response: No adverse reaction; IV Status: Completed infusion aa5 16:45 Drug: HYDROmorphone IVP 1 mg IVP once Route: IVP; Site: right forearm; aa5 16:50 Follow up: Response: No adverse reaction aa5 16:50 Drug: Ciprofloxacin IVPB 400 mg 200 ml IVPB once over 60 mins Volume: 200 ml; Route: aa5 IVPB; Infused Over: 60 mins; Site: right forearm; 17:00 Follow up: Response: No adverse reaction aa5 17:49 Follow up: Response: No adverse reaction; IV Status: Completed infusion aa5 Disposition Summary: 08/22/24 16:14 Discharge Ordered Notes: Location: Home norbert Problem: new norbert Symptoms: have improved norbert Condition: Stable norbert Diagnosis - Abdominal tenderness norbert - Left sided colitis with rectal bleeding norbert - Obesity, unspecified norbert Followup: norbert - With: Private Physician - When: 2 - 3 days - Reason: Recheck today's complaints, Continuance of care, Re-evaluation by your physician Followup: norbert - With: Viet Patel MD - When: 2 - 3 days - Reason: Recheck today's complaints, Re-evaluation by your physician Discharge Instructions: - Discharge Summary Sheet norbert - Abdominal Pain, Adult norbert - Abdominal Pain, Adult, [id number] norbert - Colitis [facility] Forms: - Medication Reconciliation Form [facility] - Antibiotic Education norbert - Prescription Opioid Use norbert - Patient Portal Instructions [facility] - Leadership Thank You Letter [facility] Prescriptions: - Flagyl 500 mg Oral Tablet - take 1 tablet ORAL route every 8 hours for 10 days; 30 tablet; Refills: 0, [facility] Product Selection Permitted - Pepcid 20 mg Oral Tablet - take 1 tablet ORAL route every 12 hours for 10 days; 20 tablet; Refills: 0, [facility] Product Selection Permitted - Cipro 500 mg Oral Tablet - take 1 tablet ORAL route every 12 hours for 7 days; 14 tablet; Refills: 0, [facility] Product Selection Permitted - dicyclomine 20 mg Oral tablet - take 1 tablet ORAL route 4 times per day; 28 tablet; Refills: 0, Product [facility] Selection Permitted Signatures: Dispatcher [employer] EDMS Mello, Ajay, MD MD norbert Jesus, Ignacia, RN RN iw Quiles, Clair, RN RN aa5 Corrections: (The following items were deleted from the chart) 13:36 13:36 CBC+H.LAB.BRZ ordered. EDMS EDMS 13:36 13:36 COMPREHENSIVE METABOLIC PANEL+C.LAB.BRZ ordered. EDMS EDMS 13:36 13:36 LIPASE+C.LAB.BRZ ordered. EDMS EDMS 13:36 13:36 Test, Urine+UC.LAB.BRZ ordered. EDMS EDMS 13:36 13:36 Urinalysis+U.LAB.BRZ ordered. EDMS EDMS 14:24 14:23 NS 0.9% IV 1000 ml IV at 1000 ml once; to be given as a bolus over 60 minutes aa5 ordered. norbert 14:24 14:24 NS 0.9% IV 1000 ml IV at 1000 ml once; to be given as a bolus over 60 minutes aa5 ordered. aa5
[2024-08-22 21:27] VITALS: BP 139/92; O2SAT 99
== END 2024-08-22 18:07 | disposition home or self-care (01) ==
LOC: ER 13:27
DX: K51.511 Left sided colitis with rectal bleeding (principal); E66.9 Obesity, unspecified; Z68.42 Body mass index [BMI] 45.0-49.9, adult
CPT/HCPCS: 96365; 96367; 96361; 85025; 81001; 36415; 81025; 83690; 80053; 74177; 96375; 99284; Q9967; J0744; J1170 ×2; J2405; J7030

== ENCOUNTER 2024-09-03 09:30 | Emergency (ER) | payer OTHER ==
[2024-09-03] MEDS ORDERED: ONDANSETRON 4 MG/2 ML VIAL ONE (10:05)
[2024-09-03] MEDS ORDERED: NA CHLORIDE 0.9% 1,000 ML ONE (10:05)
[2024-09-03] MEDS ORDERED: droPERidol 5 MG/2 ML VIAL ONE (10:05)
[2024-09-03 10:24] LABS: Absolute Eosinophils 0.1 K/uL (0-0.5); Absolute Lymphocytes (CBC) 1.8 K/uL (0.7-4.9); Absolute Monocytes 0.6 K/uL (0.1-1.3); Absolute Neutrophil 8.5 K/uL (1.8-8.0); Basophils % 0.4 % (0-1.3); Eosinophils % 0.8 % (0-4.4); Hematocrit 34.1 % (36.0-45.0); Hemoglobin 11.7 g/dL (12.0-15.0); MCH 33.5 pg (27.0-35.0); MCHC 34.4 g/dL (32.0-36.0); MCV 97.5 fL (80-100); MPV 7.6 fL (7.6-11.3); Monocytes % 5.8 % (3.3-12.3); Nucleated Red Blood Cells % 0.1 % (0-0); Platelets 280 thou/uL (152-406); Red Cell Distribution Width 14.3 % (12.1-15.2)
[2024-09-03 10:44] LABS: Albumin 3.6 g/dL (3.4-5.0); Albumin/Globulin Ratio 0.9 (1.1-1.8); Anion Gap 8.6 mEq/L (5.0-15.0); Bilirubin Total 0.3 mg/dL (0.2-1.0); Globulin 3.8 g/dL (2.3-3.5); Potassium 3.6 mEq/L (3.5-5.1); Protein, Total 7.4 g/dL (6.4-8.2)
[2024-09-03 10:54] LABS: Specific Gravity 1.009 (1.005-1.030)
[2024-09-03 10:55] LABS: Specific Gravity 1.009 (1.005-1.030); Sqamous Epithelial <5 /HPF (None Seen); Urine Bacteria 20-50 /HPF (<20); Urine Bilirubin NEGATIVE (Negative); Urine Blood 3+ (OVER) (Negative); Urine Clarity Extremely Turbid (Clear); Urine Color Colorless (Yellow); Urine Culture Reflex Order NOT NEEDED; Urine Glucose NEGATIVE (Negative); Urine Ketones NEGATIVE (Negative); Urine Microscopic Reflex YN ORDER UMIC; Urine Mucus Slight /HPF (None Seen); Urine Nitrite NEGATIVE (Negative); Urine Protein NEGATIVE (Negative); Urine RBC <5 /HPF (None Seen); Urine Urobilinogen Normal (Normal); Urine WBC <5 /HPF (<5)
--- NOTE | 2024-09-03 11:49 | RAD REPORT ---
EXAMINATION: US Abdomen Exam Limited CLINICAL HISTORY: . RUQ abd pain Bed Name: 7 COMPARISON: None. TECHNIQUE: Limited upper abdominal grayscale and color flow sonographic images. FINDINGS: Gallbladder: Normal, although slightly suboptimally distended which limits evaluation Bile ducts: No intrahepatic or extrahepatic biliary dilatation. Common bile duct measures 2 mm. Liver: Visualized portions of the liver demonstrate normal echogenicity with no suspicious findings. Fluid: No ascites. IMPRESSION: No abnormalities on right upper quadrant ultrasound.
--- NOTE | 2024-09-03 11:58 | RAD REPORT ---
EXAMINATION: CT Abdomen Pelvis W Contrast CLINICAL INDICATION: Female, 34 years old. ABD PAIN TECHNIQUE: CT abdomen and pelvis was performed, after the administration of IV contrast, [facility]. Axial, sagittal and coronal reconstructions were obtained. One or more of the following dose reduction techniques were used: Automated exposure control, adjustment of the mA and k V according to patient size, and iterative reconstruction. Unless otherwise specified, incidental findings do not require dedicated imaging follow-up. COMPARISON: 08/22/2024. FINDINGS: LOWER CHEST: Trace bilateral pleural effusions, stable. LIVER: Normal in size and contour. No focal lesion. BILIARY SYSTEM: No suspicious abnormalities. SPLEEN: Normal size. No focal lesion. PANCREAS: No mass, ductal dilation, or gela-pancreatic fluid. ADRENALS: Normal; no mass. KIDNEYS: Normal size and contour. No hydronephrosis. No radiopaque calculi. URINARY BLADDER: Unremarkable. GASTROINTESTINAL TRACT: No evidence of free air, significant intra-abdominal free fluid, bowel obstru ction or abscess. APPENDIX: Appendix surgically absent. LYMPH NODES: No lymphadenopathy. MUSCULOSKELETAL: No acute or suspicious osseous abnormality. ADDITIONAL FINDINGS: None. IMPRESSION: No other acute abnormalities seen in the abdomen or pelvis. Stable findings as above.
--- NOTE | 2024-09-03 12:21 | EDPHYS ---
Physician Documentation [facility] Name: Erica Tucker Age: 34 yrs Sex: Female : 1990 Arrival Date: 09/03/2024 Time: 09:30 Bed 7 Private MD: MALORIE Physician Bairon Burrell HPI: 09/03 09:45 This 34 yrs old Female presents to ER via Unassigned with complaints of Vomiting. rn 09:45 The patient presents to the emergency department with nausea, vomiting, abdominal pain. rn Onset: The symptoms/episode began/occurred 2 week(s) ago. Possible causes: unknown, flare up of bowel problem. The symptoms are aggravated by pressure, The symptoms are alleviated by nothing. Severity of symptoms: At their worst the symptoms were moderate in the emergency department the symptoms are unchanged. The patient has experienced similar episodes in the past. Patient reports 2 weeks of nausea and vomiting with diffuse abdominal pain. Patient has history of inflammatory bowel disease and diagnosed 2 weeks ago with colitis. Patient reports not able to keep anything down and having abdominal pain. Patient sees pain management and has been trying to take her pain medication. No fever or chills. No blood in stool.. Historical: - Allergies: 09:35 Adhesives; aa5 09:35 gluten intolerant; aa5 09:35 Lagevrio (EUA); aa5 09:35 molnupiravir; aa5 09:35 NSAIDS; aa5 09:35 PENICILLINS; aa5 09:35 Phenergan; aa5 09:35 Prednisone; aa5 09:35 Promethazine; aa5 - PMHx: 09:35 Ataxia; Atrial fibrillation; Brain lesion (frontal and eleazar) (Unknown); Cerebrovascular aa5 accident; Cervical Spondylosis (Unknown); depressive disorder; Chronic pain; Hypercholesterolemia; Degenerative disc disease (Unknown); Hypothyroidism; Kidney stone; Lordosis (cervical and lumbar); osteoarthritis; polyneuropathy; pseudotumor cerebri; Rheumatoid Arthritis; TIA; Urinary incontinence; - PSHx: 09:35 Appendectomy; Cardiac Ablation; kidney stone surgery; Myringotomy and insertion of aa5 tympanic ventilation tube; [employer] teeth extraction; - Immunization history:: Adult Immunizations unknown. - Infectious Disease History:: Denies. - Family history:: not pertinent. - Hospitalizations: : No recent hospitalization is reported. - Social history:: Smoking status: Patient denies any tobacco usage or history of. ROS: 09:45 Constitutional: Negative for fever, chills, and weight loss, Cardiovascular: Negative rn for chest pain, palpitations, and edema, Respiratory: Negative for shortness of breath, cough, wheezing, and pleuritic chest pain, Abdomen/GI: Positive for abdominal pain with nausea and vomiting MS/Extremity: Negative for injury and deformity, Skin: Negative for injury, rash, and discoloration, Neuro: Positive for generalized weakness Exam: 09:45 Constitutional: Overweight female, ambulatory with cane to room, no acute distress rn Head/Face: Normocephalic, atraumatic. Cardiovascular: Regular rate and rhythm. No pulse deficits. Respiratory: No increased work of breathing, no retractions or nasal flaring. Abdomen/GI: Soft, mild diffuse tenderness without rebound or guarding Skin: No cyanosis MS/ Extremity: Pulses equal, no cyanosis. Neuro: Awake and alert, GCS 15 Vital Signs: 09:35 BP 133 / 86; Pulse 65; Resp 18 S; Temp 97.5(TE); Pulse Ox 100% on R/A; Weight 131.54 kg aa5 (R); Height 5 ft. 7 in. (R); 10:22 BP 132 / 85; Pulse 68; Resp 15; Pulse Ox 99% ; ko1 12:36 BP 122 / 77; Pulse 69; Resp 16; Pulse Ox 100% ; bp 09:35 Body Mass Index 45.42 (131.54 kg, 170.18 cm) aa5 MDM: 09:37 Medical Screening Exam initiated rn 12:20 Differential diagnosis: Nonspecific abd pain, gastritis, cholecystitis, pancreatitis, rn appendicitis, diverticulitis, viral gastroenteritis, gastroenteritis. Data reviewed: vital signs, nurses notes, lab test result(s), radiologic studies, CT scan, ultrasound, and as a result, I will discharge patient. Counseling: I had a detailed discussion with the patient and/or guardian regarding the historical points, exam findings, and any diagnostic results supporting the discharge/admit diagnosis, lab results, radiology results, the need for outpatient follow up, to return to the emergency department if symptoms worsen or persist or if there are any questions or concerns that arise at home. Response to treatment: the patient's symptoms have mildly improved after treatment, and as a result, I will discharge patient. Special discussion: Based on the patient's Hx, exam, and Dx evaluation, there is no indication for emergent surgery or inpatient Tx. It is understood by the patient/guardian that if the Sx's persist or worsen they need to return immediately for re-evaluation. I discussed with the patient/guardian in detail that at this point there is no indication for admission to the hospital. It is understood, however, that if the symptoms persist or worsen the patient needs to return immediately for re-evaluation. Based on the history and exam findings, there is no indication for further emergent testing or inpatient evaluation. I discussed with the patient/guardian the need to see the urban renewal manager for further evaluation of the symptoms. 09/03 09:45 Order name: CBC with Diff; Complete Time: 10:38 rn 09/03 09:45 Order name: CMP; Complete Time: 10:57 rn 09/03 09:45 Order name: Lipase; Complete Time: 10:57 rn 09/03 09:45 Order name: Urinalysis w/ reflexes; Complete Time: 10:57 rn 09/03 10:10 Order name: Test, Urine; Complete Time: 10:57 rn 09/03 09:45 Order name: CT Abd/Pelvis - IV Contrast Only; Complete Time: 12:12 rn 09/03 09:58 Order name: US Abdomen Limited; Complete Time: 12:13 rn 09/03 09:45 Order name: IV Saline Lock; Complete Time: 10:20 rn 09/03 09:45 Order name: Labs collected and sent; Complete Time: 10:20 rn Administered Medications: 10:20 Drug: Ondansetron IVP 4 mg IVP once; over 2 minutes Route: IVP; Site: right antecubital;ko1 10:35 Follow up: Response: No adverse reaction ko1 10:20 Drug: NS 0.9% IV 1000 ml IV at 1000 ml once; to be given as a bolus over 60 minutes ko1 Route: IV; Rate: 1000 ml; Site: right antecubital; 10:50 Follow up: Response: No adverse reaction; IV Status: Completed infusion; IV Intake: ko1 1000ml 10:22 Drug: Droperidol IVP 1.25 mg IVP once Route: IVP; Site: right antecubital; ko1 10:37 Follow up: Response: No adverse reaction ko1 Disposition Summary: 09/03/24 12:21 Discharge Ordered Notes: Location: Home rn Problem: chronic rn Symptoms: have improved rn Condition: Stable rn Diagnosis - Abdominal pain, unspecified rn Followup: rn - With: Private Physician - When: As needed - Reason: Recheck today's complaints, Re-evaluation by your physician Discharge Instructions: - Discharge Summary Sheet rn - Abdominal Pain, Adult rn - Pain Without a Known Cause rn Forms: - Medication Reconciliation Form rn - Antibiotic transport rn - Prescription Opioid Use rn - Patient Portal Instructions rn - Leadership Thank You Letter rn Prescriptions: - ondansetron 4 mg Oral Tablet,disintegrating - take 1 tablet ORAL route every 8-10 hours As needed; 15 tablet; Refills: 0, rn Product Selection Permitted Signatures: Dispatcher [employer] EDMS Bairon Burrell MD MD rn Calderon, Audri RN RN aa5 Bhavana Alfonso RN RN ko1 Corrections: (The following items were deleted from the chart) 09:45 09:45 CBC+H.LAB.BRZ ordered. EDMS EDMS 09:45 09:45 COMPREHENSIVE METABOLIC PANEL+C.LAB.BRZ ordered. EDMS EDMS 09:45 09:45 LIPASE+C.LAB.BRZ ordered. EDMS EDMS 09:45 09:45 Urinalysis+U.LAB.BRZ ordered. EDMS EDMS 09:45 09:45 Abdomen Pelvis W Con+CT.RAD.BRZ ordered. EDMS EDMS
--- NOTE | 2024-09-03 12:21 | ER ---
Nurse's Notes [facility] Name: Erica Tucker Age: 34 yrs Sex: Female : 1990 Arrival Date: 09/03/2024 Time: 09:30 Bed 7 Private MD: Diagnosis: Abdominal pain, unspecified Presentation: 09/03 09:35 Acuity: NANCY 3 aa5 09:35 Onset of symptoms was August 2024. aa5 09:35 Chief complaint: Patient states: seen here recently for "ulcerative colitis flare up", aa5 pt states "I can't keep anything down since 11pm last night, not even my medicine". 09:35 Coronavirus screen: diarrhea, vomiting. Ebola Screen: Patient denies travel to an [facility] Ebola-affected area in the 21 days before illness onset. Initial Sepsis Screen: Does the patient meet any 2 criteria? No. Patient's initial sepsis screen is negative. Does the patient have a suspected source of infection? No. Patient's initial sepsis screen is negative. Risk Assessment: Do you want to hurt yourself or someone else? Patient reports no desire to harm self or others. 09:35 Method Of Arrival: Ambulatory aa5 Historical: - Allergies: 09:35 Adhesives; aa5 09:35 gluten intolerant; aa5 09:35 Lagevrio (EUA); aa5 09:35 molnupiravir; aa5 09:35 NSAIDS; aa5 09:35 PENICILLINS; aa5 09:35 Phenergan; aa5 09:35 Prednisone; aa5 09:35 Promethazine; aa5 - PMHx: 09:35 Ataxia; Atrial fibrillation; Brain lesion (frontal and eleazar) (Unknown); Cerebrovascular aa5 accident; Cervical Spondylosis (Unknown); depressive disorder; Chronic pain; Hypercholesterolemia; Degenerative disc disease (Unknown); Hypothyroidism; Kidney stone; Lordosis (cervical and lumbar); osteoarthritis; polyneuropathy; pseudotumor cerebri; Rheumatoid Arthritis; TIA; Urinary incontinence; - PSHx: 09:35 Appendectomy; Cardiac Ablation; kidney stone surgery; Myringotomy and insertion of aa5 tympanic ventilation tube; [place] teeth extraction; - Immunization history:: Adult Immunizations unknown. - Infectious Disease History:: Denies. - Family history:: not pertinent. - Hospitalizations: : No recent hospitalization is reported. - Social history:: Smoking status: Patient denies any tobacco usage or history of. Screenin:22 [facility] ED Fall Risk Assessment (Adult) History of falling in the last 3 months, ko1 including since admission No falls in past 3 months (0 pts) Confusion or Disorientation No (0 pts) Intoxicated or Sedated No (0 pts) Impaired Gait No (0 pts) Mobility Assist Device Used No (0 pt) Altered Elimination No (0 pt) Score/Fall Risk Level 0 - 2 = Low Risk Oriented to surroundings, Maintained a safe environment, Educated pt \\T\\ family on fall prevention, incl call for assistance when getting out of bed, Assessed \\T\\ reinforced patient's understanding of fall precautions, Hourly rounding (assess needs \\T\\ fall precautionary measures) done. Abuse screen: Denies threats or abuse. Denies injuries from another. Nutritional screening: No deficits noted. Tuberculosis screening: No symptoms or risk factors identified. Assessment: 10:15 General: Appears in no apparent distress. obese, Behavior is calm, cooperative, ko1 appropriate for age. Pain: Complains of pain in abdomen. Neuro: No deficits noted. Cardiovascular: No deficits noted. Respiratory: No deficits noted. GI: Abdomen is obese, Reports nausea, vomiting. : No deficits noted. EENT: No deficits noted. Derm: No deficits noted. Musculoskeletal: No deficits noted. 12:37 Reassessment: Patient appears in no apparent distress at this time. Patient is alert, bp oriented x 3, equal unlabored respirations, skin warm/dry/pink. Vital Signs: 09:35 BP 133 / 86; Pulse 65; Resp 18 S; Temp 97.5(TE); Pulse Ox 100% on R/A; Weight 131.54 kg aa5 (R); Height 5 ft. 7 in. (R); 10:22 BP 132 / 85; Pulse 68; Resp 15; Pulse Ox 99% ; ko1 12:36 BP 122 / 77; Pulse 69; Resp 16; Pulse Ox 100% ; bp 09:35 Body Mass Index 45.42 (131.54 kg, 170.18 cm) aa5 ED Course: 09:33 Patient arrived in ED. mg5 09:35 Arm band placed on Patient placed in an exam room, on a stretcher. aa5 09:37 Bairon Burrell MD is Attending Physician. rn 09:39 Praveen Harrison, RN is Primary Nurse. bp 09:55 Triage completed. aa5 10:15 No provider procedures requiring assistance completed. ko1 10:20 CBC with Diff Sent. ko1 10:20 CMP Sent. ko1 10:20 Lipase Sent. ko1 10:22 Patient has correct armband on for positive identification. Allergy band placed. Bed in ko1 low position. Call light in reach. Side rails up X 1. Provided Education on: meds, labs. Pulse ox on. NIBP on. Door closed. Noise minimized. Lights dimmed. 10:22 Initial lab(s) drawn, by me, sent to lab. Inserted saline lock: 18 gauge in right ko1 antecubital area, using aseptic technique. Blood collected. Flushed with 10 mL NS. 10:30 Assisted to bathroom. ko1 10:38 Urinalysis w/ reflexes Sent. ko1 10:39 Urine collected: clean catch specimen, blood tinged. ko1 10:40 Test, Urine Sent. ko1 11:00 US Abdomen Limited In Process Unspecified. EDMS 11:04 CT Abd/Pelvis - IV Contrast Only In Process Unspecified. EDMS 12:37 IV discontinued, intact, bleeding controlled, No redness/swelling at site. Pressure bp dressing applied. Administered Medications: 10:20 Drug: Ondansetron IVP 4 mg IVP once; over 2 minutes Route: IVP; Site: right antecubital;ko1 10:35 Follow up: Response: No adverse reaction ko1 10:20 Drug: NS 0.9% IV 1000 ml IV at 1000 ml once; to be given as a bolus over 60 minutes ko1 Route: IV; Rate: 1000 ml; Site: right antecubital; 10:50 Follow up: Response: No adverse reaction; IV Status: Completed infusion; IV Intake: ko1 1000ml 10:22 Drug: Droperidol IVP 1.25 mg IVP once Route: IVP; Site: right antecubital; ko1 10:37 Follow up: Response: No adverse reaction ko1 Medication: 10:22 VIS not applicable for this client. ko1 Intake: 10:50 IV: 1000ml; Total: 1000ml. ko1 Outcome: 12:21 Discharge ordered by . rn 12:37 Discharged to home ambulatory, bp 12:37 Condition: stable 12:37 Discharge instructions given to patient, Instructed on discharge instructions, follow up and referral plans. medication usage, Demonstrated understanding of instructions, follow-up care, medications, Prescriptions given X 1, 12:39 Patient left the ED. bp Signatures: Dispatcher [employer] EDMS Bairon Burrell MD MD rn Calderon, Audri, RN RN aa5 Praveen Harrison RN RN bp Oliver, Kathy, RN RN Sofia Weems mg5 Corrections: (The following items were deleted from the chart) 10:00 09:35 BP 133 / 86; Pulse 65bpm; Resp 18bpm; Spontaneous; Pulse Ox 100% RA; Temp 97.5F aa5 Temporal; aa5
[2024-09-03 12:53] VITALS: TEMP 97.5
[2024-09-03 12:56] VITALS: BP 122/77; O2SAT 100
== END 2024-09-03 12:39 | disposition home or self-care (01) ==
LOC: ER 09:30
DX: R10.9 Unspecified abdominal pain (principal); R11.2 Nausea with vomiting, unspecified; I48.91 Unspecified atrial fibrillation; E03.9 Hypothyroidism, unspecified; Z87.442 Personal history of urinary calculi; Z86.73 Personal history of transient ischemic attack (TIA), and cerebral infarction without residual deficits
CPT/HCPCS: 85025; 81001; 36415; 81025; 83690; 80053; 74177; 76705; 96375; 96374; 99284; Q9967; J2405; J1790; J7030